=== PATIENT | female | born 1945 | race Two or more races ===

== ENCOUNTER 2020-05-15 19:01 | Inpatient (IN) | payer MEDICARE, MEDICAID ==
[~2020-05-15] VITALS: Ht 162.6 cm; Wt 87.1 kg
[2020-05-15] MEDS ORDERED: LANTUS SOL100 UNIT/1 SUBQ (19:05)
[2020-05-15] MEDS ORDERED: ELIQUIS5 MG GT (19:05)
[2020-05-15] MEDS ORDERED: LANSOPRAZOLE30 MG GT (19:05)
[2020-05-15] MEDS ORDERED: CARVEDILOL3.125 MG GT (19:05)
[2020-05-15] MEDS ORDERED: MODAFINIL100 MG GT (19:05)
--- NOTE | 2020-05-15 19:05 | NUR ---
ED Nurse Note: Pt brought in from SNF via [facility] with AFIB W/RVR AT 152HH. PT presents with a T tube trach on 5L, Spo2 10 Addendum: 05/15/20 at 2330 by KDEARING Spo2 100%. PT is non-verbal, not tracking with eyes, Gtube present, clamped. Pt is diaphoretic, rectal temp 98.8. Pt placed on laboratory monitor, blood sent to lab, ERMD at bedside
--- NOTE | 2020-05-15 19:07 | Emergency Room Report ---
History of Present Illness General Chief Complaint: General Complaint Source: Patient Present Illness HPI 74-year-old female with history of CVA, chronic A. fib on Eliquis carvedilol, here with atrial fibrillation with RVR. Patient was noted to have tachycardia of around 150 to 160 bpm today at the skilled nursing. She was also diaphoretic and mildly tachypneic. She has a trach in place but is not ventilator dependent. She had normal oxygen saturation on room air per the skilled nursing report. She has a G-tube in place as well. Patient is nonverbal at baseline but does respond to commands and move all extremities spontaneously. She is at her normal baseline mental status according to nursing paperwork. She is unable to participate in review of systems secondary to nonverbal baseline mental status Allergies: Coded Allergies: No Known Allergies (Unverified , 05/15/20) COVID-19 Screening Contact w/high risk pt: No Experienced COVID-19 symptoms?: No COVID-19 Testing performed SCALE TECHNICIAN: No Nursing Documentation-PMH Past Medical History: No History, Except For Hx Diabetes: Yes - TYPE 1 Physical Exam Vital Signs Date Time Temp Pulse Resp B/P (MAP) Pulse Ox O2 Delivery O2 Flow Rate FiO2 05/15/20 18:54 160 20 93/53 (66) 100 Nasal Cannula 2.0 Medical Decision Making Diagnostic Impression: Primary Impression: Sepsis Additional Impressions: HCAP (healthcare-associated pneumonia) Atrial fibrillation with RVR ER Course EKG: Rate 165 bpm. Left axis deviation. No ectopy. No ST or T wave abnormalities. Right bundle branch block Total critical care time: Approximately 60 minutes Due to a high probability of clinically significant, life threatening deterioration, the patient required the highest level of preparedness to intervene emergently and I personally spent this critical care time directly and personally managing the patient. This critical care time included obtaining a history, examining the patient, pulse oximetry, ordering and reviewing studies , ordering treatments, evaluating response to treatment and updating management plan as needed, frequent reassessment and discussion with other providers as well as arranging for ultimate disposition. This critical to care time was performed to assess and manage the high probability of life-threatening deterioration that could result in multiorgan failure. This critical care time is separate from the separately billable procedures and treating other patients. Ddx: Asthma, copd, pna, ptx, pe, chf, acs, anemia, endocrine, renal, covid, at risk for sepsis Ddx: URI, bronchitis, viral syndrome, flu, pneumonia, meningitis, uti, acute cholecystitis, appendicitis, diverticulitis, cellulitis, at risk for sepsis 74-year-old female, history of CVA, atrial fibrillation on Eliquis here with rapid heart rate. Patient was diaphoretic and tachypneic and tachycardic on arrival to the emergency department. She initially had a heart rate of around 165 bpm, confirmed atrial fibrillation with rapid ventricular response on EKG. Initial blood pressure was approximately 90/60 with a map of about 75. She was initially started on 30 cc/kg fluid bolus and given a Cardizem bolus and drip. She was maintained on the drip which was titrated upwards to 12.5mg/hr. heart rate slowly coming down to around 130 bpm at this time. Blood pressure increased to 114/78. Initial lactate 2.4, repeat lactate will be drawn after the 30 cc/kg fluid bolus is completed. Chest x-ray reveals many interstitial infiltrates diffusely in all lung yusuf. Juan test negative, but high suspicion this may be a false negative. Patient has leukocytosis of around 16, 000. Started on vancomycin and Zosyn antibiotic broad-spectrum coverage for HCAP. Patient to be admitted to ICU. Patient's heart rate remained high tachycardic in the 150s to 160s despite being maxed out on the Cardizem drip. Patient was re-bolused 15 mg of Cardizem and despite this patient remained highly tachycardic. For this reason the patient was also added on an esmolol drip. This will be started at the lowest rate of 50 mcg/kg gram per minute. Patient signed out to [facility] physician. Laboratory Tests Test 05/15/20 19:15 White Blood Count 16.4 K/UL (4.8-10.8) H Red Blood Count 3.64 M/UL (4.20-5.40) L Hemoglobin 9.1 G/DL (12.0-16.0) L Hematocrit 29.8 % (37.0-47.0) L Mean Corpuscular Volume 82 FL (80-99) Mean Corpuscular Hemoglobin 25.1 PG (27.0-31.0) L Mean Corpuscular Hemoglobin Concent 30.7 G/DL (32.0-36.0) L Red Cell Distribution Width 16.1 % (11.6-14.8) H Platelet Count 420 K/UL (150-450) Mean Platelet Volume 9.3 FL (6.5-10.1) Neutrophils (%) (Auto) 78.4 % (45.0-75.0) H Lymphocytes (%) (Auto) 11.6 % (20.0-45.0) L Monocytes (%) (Auto) 6.5 % (1.0-10.0) Eosinophils (%) (Auto) 2.7 % (0.0-3.0) Basophils (%) (Auto) 0.8 % (0.0-2.0) Prothrombin Time 12.4 SEC (9.30-11.50) H Prothrombin Time INR 1.1 (0.9-1.1) Activated Partial Thromboplast Time 30 SEC (23-33) D-Dimer 1.78 mg/L FEU (0.00-0.49) H Urine Color Yellow Urine Appearance Clear Urine pH 8.0 (4.5-8.0) Urine Specific [place] 1.005 (1.005-1.035) Urine Protein Negative (NEGATIVE) Urine Glucose (UA) Negative (NEGATIVE) Urine Ketones Negative (NEGATIVE) Urine Blood Negative (NEGATIVE) Urine Nitrite Negative (NEGATIVE) Urine Bilirubin Negative (NEGATIVE) Urine Urobilinogen Normal MG/DL (0.0-1.0) Urine Leukocyte Esterase Negative (NEGATIVE) Sodium Level 142 MMOL/L (136-145) Potassium Level 4.3 MMOL/L (3.5-5.1) Chloride Level 102 MMOL/L (98-107) Carbon Dioxide Level 30 MMOL/L (21-32) Anion Gap 11 mmol/L (5-15) Blood Urea Nitrogen 35 mg/dL (7-18) H Creatinine 0.8 MG/DL (0.55-1.30) Estimated Glomerular Filtration Rate > 60 mL/min (>60) Glucose Level 226 MG/DL (74-106) H Lactic Acid Level 2.20 mmol/L (0.4-2.0) H Calcium Level 8.9 MG/DL (8.5-10.1) Phosphorus Level 4.7 MG/DL (2.5-4.9) Magnesium Level 2.0 MG/DL (1.8-2.4) Ferritin 141 NG/ML (8-388) Total Bilirubin 0.2 MG/DL (0.2-1.0) Aspartate Amino Transferase (AST) 15 U/L (15-37) Alanine Aminotransferase (ALT) 16 U/L (12-78) Alkaline Phosphatase 134 U/L (46-116) H Lactate Dehydrogenase 291 U/L (81-234) H Total Creatine Kinase 43 U/L (26-308) Creatine Kinase MB 1.1 NG/ML (0.0-3.6) Creatine Kinase MB Relative Index 2.5 Troponin I 0.194 ng/mL (0.000-0.056) Total Protein 6.7 G/DL (6.4-8.2) Albumin 2.1 G/DL (3.4-5.0) L Globulin 4.6 g/dL Albumin/Globulin Ratio 0.5 (1.0-2.7) L Microbiology Date/Time Source Procedure Growth Status 05/15/20 19:15 Nasopharynx SARS-CoV-2 RdRp Gene Assay - Final Complete Chest X-Ray Diagnostic Results Chest X-Ray Diagnostic Results : PA Joseluisibe Text IMPRESSION: 1. Low lung volumes with bronchovascular crowding. 2. Patchy left lung airspace opacities could represent multifocal pneumonia or atypical pulmonary edema. 3. Tracheostomy. 4. Cardiomegaly. 5. If there is continued concern, recommend CT. Last Vital Signs Date Time Temp Pulse Resp B/P (MAP) Pulse Ox O2 Delivery O2 Flow Rate FiO2 05/15/20 18:54 160 20 93/53 (66) 100 Nasal Cannula 2.0 Johnny Qiu M.D. May 15, 2020 19:07
[2020-05-15] MEDS ORDERED: dilTIAZem Premix 125mg/125ml 125 ML IVPB ONE (19:15)
[2020-05-15] MEDS ORDERED: dilTIAZem HCl 25mg/5ml Inj IVP ONE ×4 (19:15→21:15)
--- NOTE | 2020-05-15 19:15 | NUR ---
ED Nurse Note: HR 150's, IV fluids infusing per order, Cardizem started as well.
[2020-05-15 19:39] LABS: BASOPHILS % (AUTO) 0.8 % (0.0-2.0); EOSINOPHILS % (AUTO) 2.7 % (0.0-3.0); HEMATOCRIT 29.8 % (37.0-47.0); HEMOGLOBIN 9.1 G/DL (12.0-16.0); LYMPHOCYTES % (AUTO) 11.6 % (20.0-45.0); MEAN CORPUSCULAR VOLUME 82 FL (80-99); MONOCYTES % (AUTO) 6.5 % (1.0-10.0); NEUTROPHILS % (AUTO) 78.4 % (45.0-75.0); PLATELET COUNT 420 K/UL (150-450); RED BLOOD COUNT 3.64 M/UL (4.20-5.40); RED CELL DISTRIBUTION WIDTH 16.1 % (11.6-14.8); WHITE BLOOD COUNT 16.4 K/UL (4.8-10.8)
[2020-05-15 19:47] LABS: ANION GAP 11 mmol/L (5-15); BLOOD UREA NITROGEN 35 mg/dL (7-18); CALCIUM 8.9 MG/DL (8.5-10.1); CARBON DIOXIDE 30 MMOL/L (21-32); CHLORIDE 102 MMOL/L (98-107); CREATININE 0.8 MG/DL (0.55-1.30); POTASSIUM 4.3 MMOL/L (3.5-5.1); SODIUM 142 MMOL/L (136-145)
[2020-05-15 19:52] LABS: INR 1.1 (0.9-1.1)
[2020-05-15] MEDS ORDERED: Vancomycin 1 GM in NS 275 ML IVPB ONE (20:00)
[2020-05-15] MEDS ORDERED: Piperacillin/Tazobactam 3.375 GM in NS 110 ML IVPB ONE (20:00)
--- NOTE | 2020-05-15 20:00 | Diagnostic Imaging Report ---
EXAM: XR Chest, 1 View CLINICAL HISTORY: SOB TECHNIQUE: Frontal view of the chest. COMPARISON: No relevant prior studies available. FINDINGS: Lungs: Low lung volumes with bronchovascular crowding. Patchy left lung airspace opacities could represent multifocal pneumonia or atypical pulmonary edema. Pleural space: Unremarkable. No pneumothorax. Heart: Cardiomegaly. Mediastinum: Unremarkable. Bones/joints: No acute abnormality Tubes, lines and devices: Tracheostomy. IMPRESSION: 1. Low lung volumes with bronchovascular crowding. 2. Patchy left lung airspace opacities could represent multifocal pneumonia or atypical pulmonary edema. 3. Tracheostomy. 4. Cardiomegaly. 5. If there is continued concern, recommend CT.
[2020-05-15 20:06] LABS: APPEARANCE,URINE CLEAR; BILIRUBIN, URINE NEGATIVE (NEGATIVE); COLOR,URINE YELLOW; GLUCOSE, URINE (UA) NEGATIVE (NEGATIVE); KETONES,URINE NEGATIVE (NEGATIVE); LEUKOCYTE ESTERASE ,URINE NEGATIVE (NEGATIVE); NITRITE,URINE NEGATIVE (NEGATIVE); PROTEIN,URINE NEGATIVE (NEGATIVE); UROBILINOGEN,URINE NORMAL MG/DL (0.0-1.0)
[2020-05-15 20:12] LABS: ALANINE AMINOTRANSFERASE 16 U/L (12-78); ALBUMIN 2.1 G/DL (3.4-5.0); ALBUMIN/GLOBULIN RATIO 0.5 (1.0-2.7); ALKALINE PHOSPHATASE 134 U/L (46-116); ASPARTATE AMINO TRANSFERASE 15 U/L (15-37); BILIRUBIN,TOTAL 0.2 MG/DL (0.2-1.0); CKMB 1.1 NG/ML (0.0-3.6); CREATINE KINASE 43 U/L (26-308); FERRITIN 141 NG/ML (8-388); PHOSPHORUS 4.7 MG/DL (2.5-4.9)
[2020-05-15 20:23] VITALS: BP 93/53
[2020-05-15 22:00] VITALS: BP 111/81
--- NOTE | 2020-05-15 22:00 | NUR ---
ED Nurse Note: Esmolol started per order, pt tolerating well. Will continue to monitor
[2020-05-15 22:30] VITALS: BP 108/78
[2020-05-15 23:00] VITALS: BP 107/81
[2020-05-15 23:30] VITALS: BP 97/62
[2020-05-16] VITALS (42 sets, daily range): BP systolic 91–155; BP diastolic 56–87
--- NOTE | 2020-05-16 | NUR ---
ED Nurse Note: Pt in bed, side rails up, IV fluids infusing per order, HR 118, ERMD aware. will continue to monitor
--- NOTE | 2020-05-16 03:05 | NUR ---
TRANSFER TO FLOOR: Patient transferred to as ordered, per DR Martinez. Report given to KARLENE Malagon . Belongings and medications given to . Family and or S/O informed of transfer.
--- NOTE | 2020-05-16 03:16 | NUR ---
NURSE NOTES: RECEIVED THE PATIENT FROM ER NURSE KARLENE OZUNA VIA HOSPITAL BED. PATIENT OPEN EYES, UNABLE TO EYE CONTACT, ON O2 5LPM VIA T- PIECE, TRACH SITE CLEANED AND DRIED, O2 SATURATION 100% NOTED, HR 120'S/MIN A-FIB WITH BBB, G-TUBE INTACT AND PATENT, CLAMP STATUS, NO N/V NOTED, F/C INTACT AND PATENT, SUSAN COLOR URINE OUTED, PPL TO BOTH FA, LEFT FA INTACT AND PATENT,RIGHT FA SIDE OCCLUDED, ONGOING ESMOLOL 50MCG/KG/MIN VIA LEFT SIDE PPL, PRESSURE WOUND TO SACRAL AND REDNESS SPREAD TO PERIANAL AREA AND INNER THIGH, MADE LOWER BED POSITION, ON BED LOCKED AND ALARM, WILL CONTINUE TO MONITOR.
--- NOTE | 2020-05-16 04:10 | NUR ---
NURSE NOTES: CALLED DR. BROOKS REGARDING ESMOLOL ORDER THAT RECEIVED NEW ORDER.
[2020-05-16] MEDS: Metoprolol Tartrate 50mg tab GT SCH ×3 (04:16→21:09)
[2020-05-16] MEDS ORDERED: dilTIAZem HCl 25mg/5ml Inj ONE (04:24)
[2020-05-16] MEDS ORDERED: dilTIAZem HCl 25mg/5ml Inj IVP SCH ×2 (04:30→14:00)
--- NOTE | 2020-05-16 04:30 | Consultation ---
DATE OF CONSULTATION: 05/15/2020 REQUESTING PHYSICIAN: Fernie Martinez MD REASON FOR CONSULTATION: Elevated troponin level and rapid atrial fibrillation. HISTORY OF PRESENT ILLNESS: This is a 74-year-old female who resides at a group home facility. She has chronic atrial fibrillation and is on anticoagulation. She has had a prior stroke with respiratory failure and a tracheostomy although is not ventilator dependent. She was sent to the emergency room for evaluation of rapid heart rate, diaphoresis, and tachypnea. In the emergency room, she was hypotensive, tachycardic, oxygenating adequately on 2 liters. She was given several boluses of diltiazem intravenously and esmolol drip. I have been asked to assist with further cardiovascular management. PAST MEDICAL HISTORY: Cerebrovascular accident, dementia, dysphagia, gastrostomy tube, atrial fibrillation, hypertension, and insulin-requiring diabetes mellitus. ALLERGIES: No allergies. MEDICATIONS: Reviewed and reconciled. FAMILY HISTORY: Not known. SOCIAL HISTORY: Not recorded. REVIEW OF SYSTEMS: Not obtainable. Chart review of half-way records x20 minutes is performed. PHYSICAL EXAMINATION: VITAL SIGNS: Reveal blood pressure 93/53, heart rate 160, and respiratory rate 20. No fever spikes. Trach site clean. RESPIRATORY: Bilateral breath sounds with a few rhonchi. CARDIAC: Irregularly irregular rhythm. Rapid rate. Normal S1, S2. No murmur appreciated, but respiratory sounds obscure exam. ABDOMEN: Soft. G-tube intact. EXTREMITIES: Contractures. No edema. EKG, atrial fibrillation, rapid ventricular response, nonspecific ST-T wave changes. Lactic acid #1 is 2.2, #2 is 2.1. Sodium 142, potassium 4.3, bicarb 30, BUN 35, creatinine 0.8, and glucose 226. Troponin 0.194. Albumin 2.1. White count 16.4, hemoglobin 9.1, and platelets 420,000. Urinalysis with no active sediment. Chest x-ray performed reveals cardiomegaly, patchy left infiltrate, and low lung volume. IMPRESSION: 1. Shock, sepsis. 2. Healthcare-acquired pneumonia, tracheostomy. 3. Atrial fibrillation with rapid ventricular response. 4. Mkg-FA-fbvaaslth myocardial infarction. 5. Cerebrovascular disease with prior cerebrovascular accident. 6. Dysphagia with G-tube. 7. Hypovolemia and dehydration. 8. Lactic acidosis. PLAN: 1. ICU care. Beta-blockade. Intravenous diltiazem for additional rate control if needed. Respiratory therapy. Broad-spectrum antibiotics. Follow up culture results. 2. Continue full anticoagulation. 3. Insulin coverage by sliding scale. 4. Cautious hydration. 5. Hope to avoid pressors. 6. Follow up lab studies including troponin levels. John Heard M.D. DR: SOY JOB#: [id number] CC:
[2020-05-16] MEDS: Piperacillin/Tazobactam 3.375 GM in NS 110 ML IVPB SCH ×3 (06:17→21:47)
[2020-05-16] MEDS: NovoLOG Insulin Flexpen SUBQ SCH ×4 (06:18→21:29)
--- NOTE | 2020-05-16 06:20 | NUR ---
NURSE NOTES: PATIENT ASLEEP STATUS, HR 110'S/MIN A-FIB WITH BBB, NO PAIN OR SOB NOTED AT THIS TIME.
[2020-05-16] MEDS ORDERED: NovoLOG Insulin Flexpen SUBQ SCH (06:30)
[2020-05-16 06:41] LABS: BASOPHILS % (AUTO) 0.8 % (0.0-2.0); EOSINOPHILS % (AUTO) 0.7 % (0.0-3.0); HEMOGLOBIN 9.3 G/DL (12.0-16.0); LYMPHOCYTES % (AUTO) 9.8 % (20.0-45.0); MEAN CORPUSCULAR VOLUME 81 FL (80-99); MONOCYTES % (AUTO) 4.2 % (1.0-10.0); NEUTROPHILS % (AUTO) 84.4 % (45.0-75.0); PLATELET COUNT 363 K/UL (150-450); RED BLOOD COUNT 3.68 M/UL (4.20-5.40); RED CELL DISTRIBUTION WIDTH 16.1 % (11.6-14.8)
--- NOTE | 2020-05-16 07:15 | NUR ---
HAND-OFF: Report given to KARLENE SORIA.
[2020-05-16 07:29] LABS: ALANINE AMINOTRANSFERASE 23 U/L (12-78); ALBUMIN 2.3 G/DL (3.4-5.0); ALBUMIN/GLOBULIN RATIO 0.5 (1.0-2.7); ALKALINE PHOSPHATASE 107 U/L (46-116); ANION GAP 10 mmol/L (5-15); ASPARTATE AMINO TRANSFERASE 17 U/L (15-37); BILIRUBIN,TOTAL 0.4 MG/DL (0.2-1.0); BLOOD UREA NITROGEN 36 mg/dL (7-18); CARBON DIOXIDE 28 MMOL/L (21-32); CHLORIDE 106 MMOL/L (98-107); CREATININE 0.8 MG/DL (0.55-1.30); POTASSIUM 4.3 MMOL/L (3.5-5.1); SODIUM 144 MMOL/L (136-145)
--- NOTE | 2020-05-16 07:57 | NUR ---
NURSE NOTES: Report received from KARLENE Jasso.Patient is a new admit from [facility], admitting diagnosis Afib/RVR.Remains Afib on the monitor at 144. Patient afebrile,trach with TP at 5L and saturate at 100%.Patient non verbal , mouth care done and suctioned as tolerated.Turned and repositioned,HOB elevated to prevent aspiration.LFA 18 gauge running NS at 100cc/hr with no apparent infiltrate.Seen by Dr Solano, will follow up with new orders.Will continue close monitoring.Call light within easy reach.
--- NOTE | 2020-05-16 08:21 | History & Physical ---
History and Physical History & Physicial HISTORY OF PRESENT ILLNESS: 74-year-old female who resides at a [facility] facility. Patient with chronic atrial fibrillation and is on anticoagulation. Patient was sent to the emergency room for evaluation of rapid heart rate, diaphoresis, and tachypnea. In the emergency room, she was hypotensive, tachycardic, oxygenating adequately on 2 liters. Patient was started on diltiazem intravenously and transferred to the ICU. remains ill PAST MEDICAL HISTORY: Cerebrovascular accident, dementia, dysphagia, gastrostomy tube, atrial fibrillation, hypertension, and insulin-requiring diabetes mellitus. ALLERGIES: No allergies. MEDICATIONS: Reviewed and reconciled. FAMILY HISTORY: Not known. SOCIAL HISTORY: Not recorded. REVIEW OF SYSTEMS: unable. PHYSICAL EXAMINATION: NAD RESPIRATORY: moderate breath sounds CARDIAC: Irregularly irregular rhythm. Rapid rate. Normal S1, S2. no MRG ABDOMEN: Soft. G-tube intact. EXTREMITIES: Contractures. No edema. EKG, atrial fibrillation, rapid ventricular response, Labs Test 05/15/20 19:15 05/15/20 22:22 05/16/20 05:03 White Blood Count 16.4 K/UL (4.8-10.8) 17.0 K/UL (4.8-10.8) Red Blood Count 3.64 M/UL (4.20-5.40) 3.68 M/UL (4.20-5.40) Hemoglobin 9.1 G/DL (12.0-16.0) 9.3 G/DL (12.0-16.0) Hematocrit 29.8 % (37.0-47.0) 30.0 % (37.0-47.0) Mean Corpuscular Volume 82 FL (80-99) 81 FL (80-99) Mean Corpuscular Hemoglobin 25.1 PG (27.0-31.0) 25.2 PG (27.0-31.0) Mean Corpuscular Hemoglobin Concent 30.7 G/DL (32.0-36.0) 31.0 G/DL (32.0-36.0) Red Cell Distribution Width 16.1 % (11.6-14.8) 16.1 % (11.6-14.8) Platelet Count 420 K/UL (150-450) 363 K/UL (150-450) Mean Platelet Volume 9.3 FL (6.5-10.1) 8.4 FL (6.5-10.1) Neutrophils (%) (Auto) 78.4 % (45.0-75.0) 84.4 % (45.0-75.0) Lymphocytes (%) (Auto) 11.6 % (20.0-45.0) 9.8 % (20.0-45.0) Monocytes (%) (Auto) 6.5 % (1.0-10.0) 4.2 % (1.0-10.0) Eosinophils (%) (Auto) 2.7 % (0.0-3.0) 0.7 % (0.0-3.0) Basophils (%) (Auto) 0.8 % (0.0-2.0) 0.8 % (0.0-2.0) Prothrombin Time 12.4 SEC (9.30-11.50) Prothromb Time International Ratio 1.1 (0.9-1.1) Activated Partial Thromboplast Time 30 SEC (23-33) D-Dimer 1.78 mg/L FEU (0.00-0.49) Urine Color Yellow Urine Appearance Clear Urine pH 8.0 (4.5-8.0) Urine Specific [place] 1.005 (1.005-1.035) Urine Protein Negative (NEGATIVE) Urine Glucose (UA) Negative (NEGATIVE) Urine Ketones Negative (NEGATIVE) Urine Blood Negative (NEGATIVE) Urine Nitrite Negative (NEGATIVE) Urine Bilirubin Negative (NEGATIVE) Urine Urobilinogen Normal MG/DL (0.0-1.0) Urine Leukocyte Esterase Negative (NEGATIVE) Sodium Level 142 MMOL/L (136-145) 144 MMOL/L (136-145) Potassium Level 4.3 MMOL/L (3.5-5.1) 4.3 MMOL/L (3.5-5.1) Chloride Level 102 MMOL/L (98-107) 106 MMOL/L (98-107) Carbon Dioxide Level 30 MMOL/L (21-32) 28 MMOL/L (21-32) Anion Gap 11 mmol/L (5-15) 10 mmol/L (5-15) Blood Urea Nitrogen 35 mg/dL (7-18) 36 mg/dL (7-18) Creatinine 0.8 MG/DL (0.55-1.30) 0.8 MG/DL (0.55-1.30) Estimat Glomerular Filtration Rate > 60 mL/min (>60) > 60 mL/min (>60) Glucose Level 226 MG/DL (74-106) 167 MG/DL (74-106) Lactic Acid Level 2.20 mmol/L (0.4-2.0) 2.10 mmol/L (0.66-2.22) Calcium Level 8.9 MG/DL (8.5-10.1) 9.0 MG/DL (8.5-10.1) Phosphorus Level 4.7 MG/DL (2.5-4.9) Magnesium Level 2.0 MG/DL (1.8-2.4) Ferritin 141 NG/ML (8-388) Total Bilirubin 0.2 MG/DL (0.2-1.0) 0.4 MG/DL (0.2-1.0) Aspartate Amino Transf (AST/SGOT) 15 U/L (15-37) 17 U/L (15-37) Alanine Aminotransferase (ALT/SGPT) 16 U/L (12-78) 23 U/L (12-78) Alkaline Phosphatase 134 U/L (46-116) 107 U/L (46-116) Lactate Dehydrogenase 291 U/L (81-234) Total Creatine Kinase 43 U/L (26-308) Creatine Kinase MB 1.1 NG/ML (0.0-3.6) Creatine Kinase MB Relative Index 2.5 Troponin I 0.194 ng/mL (0.000-0.056) 0.159 ng/mL (0.000-0.056) Total Protein 6.7 G/DL (6.4-8.2) 7.3 G/DL (6.4-8.2) Albumin 2.1 G/DL (3.4-5.0) 2.3 G/DL (3.4-5.0) Globulin 4.6 g/dL 5.0 g/dL Albumin/Globulin Ratio 0.5 (1.0-2.7) 0.5 (1.0-2.7) Pro-B-Type Natriuretic Peptide 17752 pg/mL (0-125) Thyroid Stimulating Hormone (TSH) 1.382 uiU/mL (0.358-3.740) IMPRESSION: 1. Shock, with possible sepsis. 2. Healthcare-acquired pneumonia, tracheostomy. 3. Atrial fibrillation with RVR 4. NSTEMI 5. Cerebrovascular disease 6. Dysphagia with G-tube. 7. Hypovolemia and dehydration. 8. Lactic acidosis. 9. leukocytosis 10. severe protein calorie malnutrition PLAN diltiazem iv antibiotics feeds vent monitor labs continue same impression, plan, and exam edited and reviewed in detail care discussed with Fernie Ledezma MD May 16, 2020 08:21
--- NOTE | 2020-05-16 09:11 | NUR ---
RD ASSESSMENT & RECOMMENDATIONS SEE CARE ACTIVITY FOR COMPLETE ASSESSMENT DAILY ESTIMATED NEEDS: Needs based on Wound, DM/ 57kg abw 25-30 kcals/kg 3433-6687 total kcals 1.25-1.8 g protein/kg 71-103 g total protein 25-30 mL/kg 1623-6389 total fluid mLs NUTRITION DIAGNOSIS: * Increased kcal/prot needs R/T wound healing as evidenced by pt admitted w/ advanced sacral wound, pending evaluation. CURRENT TF:Glucerna 1.2 @ 50ml/hr x 24 hrs ENTERAL NUTRITION RECOMMENDATIONS: Glucerna 1.2 @ 50ml/hr x 24 hrs + Prosource 1pkt daily to provide 1200ml, 1440kcal, 72g +11g prot, 966ml free water * Add Prosource 1pkt daily to current TF order to better meet increased protein needs (additional 11g protein) * HOB over 30 degrees/ water flush per MD ADDITIONAL RECOMMENDATIONS: * Per SNF: Ht=63" YX=320nmq (Apr 2020) -> calibrated bedscale wt * Wound healing: f/up w/ WC eval TF @ goal will provide 100% RDI Add Vit C 500mg QD + ZnSO4 220mg QD x 10 days + Endy BID via PEG * Monitor lytes, replete as needed * Monitor BGs, need for long acting insulin
[2020-05-16] MEDS: Eliquis 5mg tablet GT SCH ×2 (09:14→17:06)
[2020-05-16] MEDS ORDERED: Tubing IV Secondary IV ONE (10:03)
--- NOTE | 2020-05-16 10:10 | NUR ---
NURSE NOTES: PATIENT WAS SEEN BY Dr ZELAYA, WILL FOLLOW UP WITH NEW ORDERS. PATIENT TURNED AND REPOSITIONED.HOB ELEVATED TO PREVENT ASPIRATION.WILL CONTINUE TO MONITOR
--- NOTE | 2020-05-16 12:04 | NUR ---
NURSE NOTES: Patient turned and repositioned.Still uncontrol Afib at 157, will follow up with Dr Heard. Mouth care done and patient suctioned as tolerated.HOB elevated to prevent aspiration.Tolerate well feeding. No residual noted at this time.Will continue close monitoring
--- NOTE | 2020-05-16 12:25 | NUR ---
NURSE NOTES: Patient seen by Dr Heard and made aware of uncontrol AFIB with new order to start patient on Cardizem drip.Order noted and carried out
--- NOTE | 2020-05-16 13:53 | NUR ---
Social Work Chart reviewed; this SW contacted son, John Booker ([phone]), who is the primary decision maker. Patient is a half-way resident from [facility], history of stroke, has had peg, trach for the past month. Son explained patient did not complete an Advance Directive, but stating he had several conversations with patient and wanting full treatment, full code. Son explained awareness on how to contact ICU nursing for any updates, as needed. Brief support provided to so by this SW. No other needs or concerns presented a this time. SW to follow further, as needed.
--- NOTE | 2020-05-16 14:00 | Consultation ---
DATE OF CONSULTATION: 05/16/2020 INFECTIOUS DISEASES CONSULTATION CONSULTING PHYSICIAN: Mina Salamanca MD. REFERRING PHYSICIAN: Fernie Martinez MD. REASON FOR CONSULTATION: Pneumonia. HISTORY OF PRESENTING ILLNESS: This is a 74-year-old lady with history of atrial fibrillation, CVA, dementia, hypertension, diabetes, who comes in because she had tachypnea, tachycardia, and diaphoresis. She was also found to be hypotensive and admitted to the ICU. An Infectious Diseases consultation has been obtained for antibiotics. PAST MEDICAL HISTORY: 1. History of diabetes. 2. Hypertension. 3. Atrial fibrillation. 4. CVA. 5. Dementia. 6. Respiratory failure, status post tracheostomy, currently on a G-tube. SOCIAL HISTORY: Unknown. FAMILY HISTORY: Unknown. REVIEW OF SYSTEMS: Unable to obtain currently. MEDICATIONS: As an inpatient, she is on IV vancomycin, Eliquis, insulin, Zosyn, metoprolol. ALLERGIES: No known drug allergies. PHYSICAL EXAMINATION: VITAL SIGNS: Temperature of 98, T-max of 98.8, pulse of 132, respiratory rate 27, blood pressure 108/68, O2 saturation of 100%. HEENT: Pupils equally reactive to light and accommodation. Mouth appears clean without thrush. NECK: Supple. No adenopathy. No JVD. CARDIOVASCULAR: Regular rate and rhythm. No murmurs. LUNGS: Clear to auscultation bilaterally. No crackles. No wheezes. ABDOMEN: Soft, nontender. G-tube site appears clean. EXTREMITIES: No cyanosis, no clubbing, no edema. LABORATORY AND DIAGNOSTIC DATA: White count of 17, hemoglobin 9.3, hematocrit 30, MCV 81, platelet count of 363, with neutrophils of 84%. Sodium 144, potassium 4.3, chloride 106, bicarb 28, BUN 36, creatinine 0.8, glucose 167, calcium of 9. Total bilirubin 0.4. AST 17, ALT 23, alkaline phosphatase 107. Troponin 0.159. Beta-natriuretic peptide 11,023. Total protein 7.3. Albumin 2.3. UA is negative. COVID-19 rapid test is negative. Chest x-ray is showing multifocal pneumonia, atypical pulmonary edema. ASSESSMENT: This is a 74-year-old lady with history of atrial fibrillation, diabetes, hypertension, respiratory failure, status post tracheostomy, who comes in with tachycardia, hypoxia and was found to have: 1. Possible aspiration pneumonia. COVID-19 test is negative. 2. Respiratory failure. 3. Dementia. 4. Hypertension. 5. Diabetes. 6. Leukocytosis. PLAN: 1. Continue IV vancomycin and Zosyn. 2. We will order sputum for Gram stain and culture. 3. We will follow up cultures and adjust antibiotics accordingly. I would like to thank, Dr. Martinez for this consultation. Mina Salamanca M.D. DR: PIERRE JOB#: [id number] CC: Fernie Martinez MD.; Fax#: [phone]
--- NOTE | 2020-05-16 14:02 | NUR ---
NURSE NOTES: Patient asleep, Cardizem drip started and HR remains irregular and Afib on the monitor. Will continue to monitor
[2020-05-16] MEDS: dilTIAZem Premix 125mg/125ml 125 ML IVPB SCH ×2 (14:05→19:02)
--- NOTE | 2020-05-16 16:15 | NUR ---
NURSE NOTES: Patient seen by wound care nurse and wounds assessment and treatment done.Turned and repositioned for skin management.Tolerate well feeding.HOB elevated to prevent aspiration, will continue monitoring.Dr Little made aware of consult.Call light within easy reach.No significant change in condition at this time.
--- NOTE | 2020-05-16 17:35 | NUR ---
NURSE NOTES:WOUND CARE NOTES:Pt presented on admission with multiple pressure injuries,IAD. An Unstageable Sacral Pressure Injury (L0
--- NOTE | 2020-05-16 17:39 | NUR ---
NURSE NOTES:WOUND CARE NOTES:Pt presented on admission with generalized Edema,multiple Pressure Injuries and IAD. Unstageable Sacral Pressure Injury(L)11.4cm x (W)7.2cm. Base of wound is 80% dry necrosis ,20% beefy red and moist,Edges are macerated.. Along immediate borders of wound is id dark and fluctuant with surrounding non-blanching erythema. No odor or exudate noted. DTPI noted to R Ischium. Base of wound is maroon and fluctuant (L)4cm x (W)2.2cm. Incontinence Associated Dermatitis noted. Mons Pubis ,Perineum and clefts of buttocks are erythematous with scattered satellite lesions. Both heels are soft but blanchable. Both feet cool to touch toes on each feet are dusky . Scattered melasmas noted to upper and mid back. Skin assessed under tracheal collar and no evidence of skin breakdown noted. Tx.Plan: Cleanse Sacral wound with Saline. Apply Therahoney. Apply MOisture Barrier Periwound. Cover with Optifoam drsg Daily and prn. Apply Cavilon Skin Barrier to R ischium. Cover with Optifoam Drsg. Change every 3Days and PRN. Apply Moisture Barrier Paste to Perineal area , mid thighs and buttocks with each incontinence Care. Apply Cavilon Skin Barrier to Both heels and Malleoli. Cover each site with Optifoam drsgs. Change every 7 days PRN. Reposition at least every 2hours or as tolerated. Off-load Heels with PIllow. APM/DANIEL Mattress overlay.
--- NOTE | 2020-05-16 17:58 | NUR ---
CASE MANAGEMENT: REVIEW 74 YEAR OLD FEMALE BIBA FROM [facility] CC: TACHYCARDIA SI: A-FIB w/RVR T 98.8 HR 160 RR 20 BP 93/53 SAT 100% NC/2L WBC 16.4 H/H 9.1/29.8 LACTIC ACID TROP I 0.159 EKG IS: CARDIZEM IV X1 NS IVF BOLUS X1 ZOSYN IV X1 ESMOLOL IV X1 PATIENT ADMITTED TO ICU 05/15/2020 DCP: PATIENT IS FROM [facility]
--- NOTE | 2020-05-16 18:10 | NUR ---
INSURANCE CLINICALS/REVIEW FAXED TO [facility] @ FULL RISK #[phone] FAX#[phone]
--- NOTE | 2020-05-16 18:11 | NUR ---
NURSE NOTES: ADLs done,turned and repositioned.Mouth care performed and suctioned as tolerated.Cardizem drip at 15mg/hr, HR remains irregular and patient still Afib.Will continue to monitor
[2020-05-16] MEDS ORDERED: INSULIN LI100 UNIT/1 SQ (19:26)
[2020-05-16] MEDS ORDERED: ACETAMINOP160 MG/5 M GT (19:26)
--- NOTE | 2020-05-16 19:30 | NUR ---
NURSE NOTES: Received pt awake open eyes, left arm moves, the rest of extremities weak on, on 50% t piece, , Afib with RVR on the monitor, bp labile, on cardizem drip at 15mg/hr and NS at 100ml/hr. will continue to monitor.
--- NOTE | 2020-05-16 19:44 | NUR ---
HAND-OFF: Report given to KARLENE Del Rio.
[2020-05-16] MEDS: Vancomycin 1gm/D5W 275ml IVPB SCH ×2 (20:24)
--- NOTE | 2020-05-16 22:00 | NUR ---
NURSE NOTES: Pt with pressure sore sacral areas pls see pictures, all are covered with optifoam clean and dry.
--- NOTE | 2020-05-16 22:00 | NUR ---
NURSE NOTES: place pt on p200 mattress.
[2020-05-17] VITALS (43 sets, daily range): BP systolic 92–141; BP diastolic 60–97
--- NOTE | 2020-05-17 01:00 | NUR ---
NURSE NOTES: Fio2 changed to 21% T piece
--- NOTE | 2020-05-17 02:40 | Cardiology Progress Note ---
Subjective DATE OF SERVICE: May 16, 2020 Remains in rapid atrial fibrillation BP marginal, but off pressors On-going trach care Objective Last 24 Hour Vital Signs Date Time Temp Pulse Resp B/P (MAP) Pulse Ox O2 Delivery O2 Flow Rate FiO2 05/17/20 01:51 100 Cool Aerosol 5.0 28 05/17/20 00:00 98.8 114 27 92/60 (71) 95 05/16/20 23:30 110 24 105/72 (83) 100 05/16/20 23:00 112 24 107/69 (82) 100 05/16/20 22:30 111 24 103/56 (72) 100 05/16/20 22:00 118 23 105/70 (82) 100 05/16/20 21:30 126 25 114/75 (88) 100 05/16/20 21:09 147 113/64 05/16/20 21:00 149 26 93/64 (74) 98 05/16/20 20:45 139 26 95/72 (80) 99 05/16/20 20:30 151 26 96/68 (77) 99 05/16/20 20:15 142 26 97/61 (73) 98 05/16/20 20:00 99.0 158 26 91/66 (74) 96 05/16/20 20:00 T-piece 5.0 05/16/20 19:45 157 33 120/72 (88) 98 05/16/20 19:44 100 Cool Aerosol 8.0 35 05/16/20 19:30 156 34 121/79 (93) 98 05/16/20 18:00 146 29 130/87 (101) 100 05/16/20 17:00 137 25 108/74 (85) 100 05/16/20 16:00 T-piece 5.0 05/16/20 16:00 128 05/16/20 16:00 98.2 130 25 97/71 (80) 96 05/16/20 15:00 131 24 100/80 (87) 100 05/16/20 14:04 159 91/67 05/16/20 14:00 155 27 91/67 (75) 100 05/16/20 13:51 100 Cool Aerosol 8.0 35 05/16/20 13:00 151 24 110/75 (87) 100 05/16/20 12:00 99.0 152 26 105/65 (78) 99 05/16/20 12:00 153 05/16/20 12:00 T-piece 5.0 05/16/20 11:00 132 27 108/68 (81) 100 05/16/20 10:00 141 26 103/66 (78) 97 05/16/20 09:48 98 Cool Aerosol 8.0 35 05/16/20 09:13 144 117/74 05/16/20 09:00 142 25 117/74 (88) 100 05/16/20 08:00 135 05/16/20 08:00 T-piece 5.0 05/16/20 08:00 98.0 135 24 122/81 (95) 100 05/16/20 07:00 130 22 113/75 (88) 100 05/16/20 06:45 125 22 102/73 (83) 100 05/16/20 06:30 130 23 102/68 (79) 100 05/16/20 06:15 130 23 113/71 (85) 100 05/16/20 06:00 126 22 115/69 (84) 100 05/16/20 05:30 134 23 113/72 (86) 100 05/16/20 05:00 127 24 122/79 (93) 100 05/16/20 04:45 126 23 111/70 (84) 100 05/16/20 04:35 122 109/75 05/16/20 04:30 129 23 109/75 (86) 100 05/16/20 04:16 123 108/75 05/16/20 04:15 129 24 109/69 (82) 100 05/16/20 04:00 T-piece 5.0 05/16/20 04:00 127 24 108/75 (86) 100 05/16/20 04:00 127 05/16/20 03:45 126 25 118/83 (95) 100 05/16/20 03:32 125 05/16/20 03:30 98.7 125 26 113/65 (81) 100 05/16/20 03:30 5.0 05/16/20 03:30 T-Piece 5.0 05/16/20 03:15 121 23 100 05/16/20 03:14 155/71 (99) 05/16/20 03:05 98.8 118 30 110/72 100 Nasal Cannula 5.0 ROS: unchanged from my eval 05/15/20 HEENT: Thin Trach secretions RHYTHM: Afib LUNGS: bilateral rhonchi CARDIAC: normal S1 and S2, irregularly irregular, rapid rate ABDOMEN: normal bowel sounds, non tender, G-Tube intact EXTREMITIES: No edema Laboratory Tests Test 05/16/20 05:03 05/16/20 21:24 White Blood Count 17.0 K/UL (4.8-10.8) H Red Blood Count 3.68 M/UL (4.20-5.40) L Hemoglobin 9.3 G/DL (12.0-16.0) L Hematocrit 30.0 % (37.0-47.0) L Mean Corpuscular Volume 81 FL (80-99) Mean Corpuscular Hemoglobin 25.2 PG (27.0-31.0) L Mean Corpuscular Hemoglobin Concent 31.0 G/DL (32.0-36.0) L Red Cell Distribution Width 16.1 % (11.6-14.8) H Platelet Count 363 K/UL (150-450) Mean Platelet Volume 8.4 FL (6.5-10.1) Neutrophils (%) (Auto) 84.4 % (45.0-75.0) H Lymphocytes (%) (Auto) 9.8 % (20.0-45.0) L Monocytes (%) (Auto) 4.2 % (1.0-10.0) Eosinophils (%) (Auto) 0.7 % (0.0-3.0) Basophils (%) (Auto) 0.8 % (0.0-2.0) Sodium Level 144 MMOL/L (136-145) Potassium Level 4.3 MMOL/L (3.5-5.1) Chloride Level 106 MMOL/L (98-107) Carbon Dioxide Level 28 MMOL/L (21-32) Anion Gap 10 mmol/L (5-15) Blood Urea Nitrogen 36 mg/dL (7-18) H Creatinine 0.8 MG/DL (0.55-1.30) Estimat Glomerular Filtration Rate > 60 mL/min (>60) Glucose Level 167 MG/DL (74-106) H Calcium Level 9.0 MG/DL (8.5-10.1) Total Bilirubin 0.4 MG/DL (0.2-1.0) Aspartate Amino Transf (AST/SGOT) 17 U/L (15-37) Alanine Aminotransferase (ALT/SGPT) 23 U/L (12-78) Alkaline Phosphatase 107 U/L (46-116) Troponin I 0.159 ng/mL (0.000-0.056) Pro-B-Type Natriuretic Peptide 47978 pg/mL (0-125) H Total Protein 7.3 G/DL (6.4-8.2) Albumin 2.3 G/DL (3.4-5.0) L Globulin 5.0 g/dL Albumin/Globulin Ratio 0.5 (1.0-2.7) L Thyroid Stimulating Hormone (TSH) 1.382 uiU/mL (0.358-3.740) POC Whole Blood Glucose 226 MG/DL (74-106) H Microbiology Date/Time Source Procedure Growth Status 05/15/20 19:15 Nasopharynx SARS-CoV-2 RdRp Gene Assay - Final Complete Assessment/Plan Assessment/Plan Remains CRITICAL & GUARDED Sepsis with shock Healthcare associated PNA NSTE myocardial infarction Chronic AFib with RVR Lactic acidosis resolved Hypovolemia/dehydration Severe protein calorie malnutrition Resp rx IVF IV diltiazem Continue beta pietro Full anti-coagulation John Heard MD May 17, 2020 02:40
--- NOTE | 2020-05-17 03:00 | NUR ---
NURSE NOTES: Had x 1lg formed bowel movement, cleaned up pt
[2020-05-17] MEDS: dilTIAZem Premix 125mg/125ml 125 ML IVPB SCH ×4 (03:36→20:33)
--- NOTE | 2020-05-17 05:30 | NUR ---
NURSE NOTES: Complete bed bath with bed changed was done.
[2020-05-17] MEDS: Piperacillin/Tazobactam 3.375 GM in NS 110 ML IVPB SCH ×3 (05:39→21:54)
[2020-05-17 06:15] LABS: BASOPHILS % (AUTO) 0.7 % (0.0-2.0); EOSINOPHILS % (AUTO) 2.1 % (0.0-3.0); HEMATOCRIT 26.8 % (37.0-47.0); HEMOGLOBIN 8.2 G/DL (12.0-16.0); LYMPHOCYTES % (AUTO) 10.2 % (20.0-45.0); MEAN CORPUSCULAR VOLUME 81 FL (80-99); MONOCYTES % (AUTO) 6.9 % (1.0-10.0); NEUTROPHILS % (AUTO) 80.2 % (45.0-75.0); PLATELET COUNT 422 K/UL (150-450); RED BLOOD COUNT 3.31 M/UL (4.20-5.40); RED CELL DISTRIBUTION WIDTH 15.9 % (11.6-14.8); WHITE BLOOD COUNT 17.7 K/UL (4.8-10.8)
[2020-05-17 06:41] LABS: ALANINE AMINOTRANSFERASE 17 U/L (12-78); ALBUMIN 1.9 G/DL (3.4-5.0); ALBUMIN/GLOBULIN RATIO 0.5 (1.0-2.7); ALKALINE PHOSPHATASE 130 U/L (46-116); ANION GAP 11 mmol/L (5-15); BILIRUBIN,TOTAL 0.3 MG/DL (0.2-1.0); BLOOD UREA NITROGEN 33 mg/dL (7-18); CARBON DIOXIDE 25 MMOL/L (21-32); CHLORIDE 108 MMOL/L (98-107); CREATININE 0.8 MG/DL (0.55-1.30); POTASSIUM 3.8 MMOL/L (3.5-5.1); SODIUM 144 MMOL/L (136-145)
[2020-05-17] MEDS: NovoLOG Insulin Flexpen SUBQ SCH ×4 (06:46→20:53)
--- NOTE | 2020-05-17 07:34 | NUR ---
NURSE HAND-OFF REPORT: Latest Vital Signs: Temperature 99.0 , Pulse 133 , B/P 108 /75 , Respiratory Rate 24 , O2 SAT 100 , T-piece, O2 Flow Rate 5.0 . Vital Sign Comment: EKG Rhythm: Afib with RVR Rhythm change?: N MD Notified?: N - MD Response: Latest Hernandez Fall Score: 40 Fall Risk: Medium Risk Safety Measures: Call light Within Reach, Bed Alarm Zone 2, Side Rails Side Rails x3, Bed position Low and Locked. Fall Precautions: Report given to .
[2020-05-17 07:39] LABS: ASPARTATE AMINO TRANSFERASE 14 U/L (15-37)
--- NOTE | 2020-05-17 07:58 | General Progress Note ---
Assessment/Plan Problem List: (1) HCAP (healthcare-associated pneumonia) ICD Codes: J18.9 - Pneumonia, unspecified organism SNOMED: 854945636, 444026457 (2) Encounter for generalized patient complaints ICD Codes: Z00.8 - Encounter for other general examination SNOMED: 054305649 (3) Sepsis ICD Codes: A41.9 - Sepsis, unspecified organism SNOMED: 51018180, 114547764 (4) Atrial fibrillation with RVR ICD Codes: I48.91 - Unspecified atrial fibrillation SNOMED: 733388767964570 Status: stable, not improved Assessment/Plan: cardizem drip- titrate oral metoprolol consider dig eliquis for stroke prophylaxis monitor for bleeding tube feeds resp care consider anxiolytics- per staff pt ok right now stress ulcer prophylaxis monitor labs lytes cards and pulm noted Subjective ROS Limited/Unobtainable: Yes Constitutional: Reports: malaise, weakness HEENT: Reports: no symptoms Cardiovascular: Reports: irregular heart rate Respiratory: Reports: shortness of breath, SOB at rest Gastrointestinal/Abdominal: Reports: difficulty swallowing Genitourinary: Reports: no symptoms Neurologic/Psychiatric: Reports: anxiety, pre-existing deficit Endocrine: Reports: no symptoms Hematologic/Lymphatic: Reports: anemia Allergies: Coded Allergies: No Known Allergies (Unverified , 05/15/20) All Systems: reviewed and negative except above Subjective no events. remains afib uncontrolled. hr 130s. on cardizem drip as well as po metorpolol. +anxiety. BP on the low side. no fevers. on iv abx. Objective Last 24 Hour Vital Signs Date Time Temp Pulse Resp B/P (MAP) Pulse Ox O2 Delivery O2 Flow Rate FiO2 05/17/20 06:30 133 24 108/75 (86) 100 05/17/20 06:00 133 24 99/76 (84) 99 05/17/20 05:30 133 22 120/70 (87) 100 05/17/20 05:00 134 27 106/77 (87) 99 05/17/20 04:30 130 25 106/87 (93) 99 05/17/20 04:00 99.0 135 27 114/81 (92) 100 05/17/20 04:00 130 05/17/20 04:00 T-piece 5.0 05/17/20 03:30 134 25 114/77 (89) 99 05/17/20 03:00 128 25 104/71 (82) 100 05/17/20 02:30 129 25 101/72 (82) 99 05/17/20 02:00 125 26 115/79 (91) 99 05/17/20 01:51 100 Cool Aerosol 5.0 28 05/17/20 01:30 131 25 114/68 (83) 100 05/17/20 01:00 122 24 114/70 (85) 100 05/17/20 00:30 114 24 107/81 (90) 100 05/17/20 00:00 110 05/17/20 00:00 98.8 114 27 92/60 (71) 95 05/17/20 00:00 T-piece 5.0 05/16/20 23:30 110 24 105/72 (83) 100 05/16/20 23:00 112 24 107/69 (82) 100 05/16/20 22:30 111 24 103/56 (72) 100 05/16/20 22:00 118 23 105/70 (82) 100 05/16/20 21:30 126 25 114/75 (88) 100 05/16/20 21:09 147 113/64 05/16/20 21:00 149 26 93/64 (74) 98 05/16/20 20:45 139 26 95/72 (80) 99 05/16/20 20:30 151 26 96/68 (77) 99 05/16/20 20:15 142 26 97/61 (73) 98 05/16/20 20:00 99.0 158 26 91/66 (74) 96 05/16/20 20:00 T-piece 5.0 05/16/20 19:45 157 33 120/72 (88) 98 05/16/20 19:44 100 Cool Aerosol 8.0 35 05/16/20 19:30 156 34 121/79 (93) 98 05/16/20 18:00 146 29 130/87 (101) 100 05/16/20 17:00 137 25 108/74 (85) 100 05/16/20 16:00 T-piece 5.0 05/16/20 16:00 128 05/16/20 16:00 98.2 130 25 97/71 (80) 96 05/16/20 15:00 131 24 100/80 (87) 100 05/16/20 14:04 159 91/67 05/16/20 14:00 155 27 91/67 (75) 100 05/16/20 13:51 100 Cool Aerosol 8.0 35 05/16/20 13:00 151 24 110/75 (87) 100 05/16/20 12:00 99.0 152 26 105/65 (78) 99 05/16/20 12:00 153 05/16/20 12:00 T-piece 5.0 05/16/20 11:00 132 27 108/68 (81) 100 05/16/20 10:00 141 26 103/66 (78) 97 05/16/20 09:48 98 Cool Aerosol 8.0 35 05/16/20 09:13 144 117/74 05/16/20 09:00 142 25 117/74 (88) 100 05/16/20 08:00 135 05/16/20 08:00 T-piece 5.0 05/16/20 08:00 98.0 135 24 122/81 (95) 100 Intake and Output 05/16/20 05/17/20 19:00 07:00 Intake Total 1755.1666 ml 1995 ml Output Total 520 ml 630 ml Balance 1235.1666 ml 1365 ml Intake Free Water 90 ml 90 ml IV Total 1350.1666 ml 1380 ml Tube Feeding 315 ml 525 ml Output Urine Total 520 ml 630 ml # Bowel Movements 1 5 Laboratory Tests 05/16/20 21:24: POC Whole Blood Glucose 226H 05/17/20 05:17: White Blood Count 17.7H, Red Blood Count 3.31L, Hemoglobin 8.2L, Hematocrit 26.8L, Mean Corpuscular Volume 81, Mean Corpuscular Hemoglobin 24.8L, Mean Corpuscular Hemoglobin Concent 30.7L, Red Cell Distribution Width 15.9H, Platelet Count 422, Mean Platelet Volume 8.9, Neutrophils (%) (Auto) 80.2H, Lymphocytes (%) (Auto) 10.2L, Monocytes (%) (Auto) 6.9, Eosinophils (%) (Auto) 2.1, Basophils (%) (Auto) 0.7, Sodium Level 144, Potassium Level 3.8, Chloride Level 108H, Carbon Dioxide Level 25, Anion Gap 11, Blood Urea Nitrogen 33H, Creatinine 0.8, Estimat Glomerular Filtration Rate > 60, Glucose Level 238H, Calcium Level 8.0L, Magnesium Level 1.9, Total Bilirubin 0.3, Aspartate Amino Transf (AST/SGOT) 14L, Alanine Aminotransferase (ALT/SGPT) 17, Alkaline Phosphatase 130H, Troponin I 0.134H, Total Protein 5.9L, Albumin 1.9L, Globulin 4.0, Albumin/Globulin Ratio 0.5L Height (Feet): 5 Height (Inches): 4.00 Weight (Pounds): 202 General Appearance: WD/WN, alert, confused EENT: PERRL/EOMI, normal ENT inspection Neck: non-tender, normal alignment, supple Cardiovascular: no JVD, irregularly irregular Respiratory/Chest: lungs clear, normal breath sounds, no respiratory distress, no accessory muscle use Abdomen: normal bowel sounds, non tender, soft, no organomegaly Edema: no edema noted Arm (L), no edema noted Arm (R) Neurologic: alert, disoriented Skin: normal pigmentation Lymphatic: normal anterior cervical (L), normal anterior cervical (R) Sanjay Solano MD May 17, 2020 07:58
--- NOTE | 2020-05-17 08:00 | NUR ---
NURSE NOTES: LATE ENTRY: RECEIVED REPORT FROM Kiya POLANCO PT IN BED. NONVERBAL. FLAT EFFECT, NO TRACKING. PUPILS 3MM, SLUGGISH. SR ON MONITOR. TRACH TO VENT SHILEY 7. T-PIECE 5L. SECRETIONS SCANT. COUGH PRODUCTIVE. SUCTION VIA TRACH AND ORAL CAVITY. TRACH PATENT AND DRESSING INTACT. ABDOMEN ROUND, NON TENDER. NO BM AT THIS TIME. G TUBE, NO RESIDUALS. TUBE FEEDING RUNNING AT 50ML/HR. SOTO PATENT, DRAINING BELOW BLADDER, YELLOW URINE. SKIN- SEE ASSESSMENT. NO JVD. NON PITTING BILATERAL UPPER EXTREMITIES. HEMIPARESIS RT SIDED. LFA 18G. RFA 22G, NS RUNNING 100ML/HR. CARDIZEM 15ML/HR. AFEBRILE. STANDARD PRECAUTIONS IN PLACE. BED ALARM ON, BED LOCKED IN LOW POSITION. SIDE RAILSX3. WILL CONTINUE TO MONITOR PT. Addendum: 05/17/20 at 1557 by Kindra Brand RN AFIB ON MONITOR
--- NOTE | 2020-05-17 08:45 | History and Physical Report ---
DATE OF ADMISSION: 05/15/2020 HISTORY OF PRESENT ILLNESS: This is a 74-year-old female. She has a history of chronic atrial fibrillation, chronic respiratory failure, stroke, encephalopathy, diabetes was transferred from a half-way facility with complaints of atrial fibrillation with RVR. She was tachycardic into the 150s. Initially, she received several doses of IV Cardizem with some improvement in her heart rate, but she still remained uncontrolled and is now admitted to the intensive care unit. She is poorly responsive at baseline. She is unable provide any history. PAST MEDICAL HISTORY: As above. PAST SURGICAL HISTORY: Includes history of a trach and a G-tube. CURRENT MEDICATIONS: Reconciled and reviewed. ALLERGIES: None. FAMILY HISTORY: None. SOCIAL HISTORY: There is no known history of tobacco, ethanol, or drugs. REVIEW OF SYSTEMS: From the patient is unobtainable as she is confused. PHYSICAL EXAMINATION: VITAL SIGNS: Temperature 99, pulse 130, respirations 27, blood pressure 114/81. GENERAL: The patient is well-developed, chronically ill-appearing female. She is currently on trach collar. HEENT: Head is normocephalic and atraumatic. Oropharynx clear. Mucous membranes are moist. NECK: Supple. Trach site was midline without any discharge. HEART: . LUNGS: Clear. ABDOMEN: Soft, nontender, nondistended. EXTREMITIES: There is no cyanosis or edema. NEUROLOGIC: The patient is poorly responsive, is unable to comply with the neurologic exam. The patient does not respond to verbal or tactile stimuli. LABORATORY AND DIAGNOSTIC DATA: White count 16, hemoglobin 9.1, hematocrit 29, platelets of 420. Sodium 144, potassium 4.3, BUN 36, creatinine 0.8. Troponin 0.159. Natriuretic peptide was 11,000. D-dimer is 1.78. Urine was clear. Chest x-ray showed patchy left air space opacities. ASSESSMENT: This is a elderly unfortunate female with history of atrial fibrillation, chronic respiratory failure, diabetes, encephalopathy admitted with atrial fibrillation with RVR, sepsis, pneumonia, possible acute RI. PLAN: Broad-spectrum IV antibiotics. Followup cultures. Cardiology consultation and pulmonary consultation will be obtained. Continue Accu-Cheks with sliding scale. Check an A1c level. Monitor for bleeding on Eliquis. Stress ulcer prophylaxis. Sanjay Solano M.D. DR: Tyron JOB#: [id number] CC:
--- NOTE | 2020-05-17 09:13 | Critical Care Progress Note ---
Assessment/Plan Assessment/Plan IMPRESSION: 1. Shock, with possible sepsis. 2. Healthcare-acquired pneumonia, tracheostomy. 3. Atrial fibrillation with RVR 4. NSTEMI 5. Cerebrovascular disease 6. Dysphagia with G-tube. 7. Hypovolemia and dehydration. 8. Lactic acidosis. 9. leukocytosis 10. severe protein calorie malnutrition PLAN diltiazem IV iv antibiotics feeds vent monitor labs continue same medications/laboratory data/nursing notes/ICU care reviewed in detail note reviewed and edited care discussed with RN and RT ICU time spent >40 minutes Critical Care - Subjective ROS Limited/Unobtainable: Yes Condition: critical I&O: Intake and Output 05/16/20 05/17/20 19:00 07:00 Intake Total 1755.1666 ml 1995 ml Output Total 520 ml 630 ml Balance 1235.1666 ml 1365 ml Intake Free Water 90 ml 90 ml IV Total 1350.1666 ml 1380 ml Tube Feeding 315 ml 525 ml Output Urine Total 520 ml 630 ml # Bowel Movements 1 5 Critical Care - Objective Last 24 Hour Vital Signs Date Time Temp Pulse Resp B/P (MAP) Pulse Ox O2 Delivery O2 Flow Rate FiO2 05/17/20 06:30 133 24 108/75 (86) 100 05/17/20 06:00 133 24 99/76 (84) 99 05/17/20 05:30 133 22 120/70 (87) 100 05/17/20 05:00 134 27 106/77 (87) 99 05/17/20 04:30 130 25 106/87 (93) 99 05/17/20 04:00 99.0 135 27 114/81 (92) 100 05/17/20 04:00 130 05/17/20 04:00 T-piece 5.0 05/17/20 03:30 134 25 114/77 (89) 99 05/17/20 03:00 128 25 104/71 (82) 100 05/17/20 02:30 129 25 101/72 (82) 99 05/17/20 02:00 125 26 115/79 (91) 99 05/17/20 01:51 100 Cool Aerosol 5.0 28 05/17/20 01:30 131 25 114/68 (83) 100 05/17/20 01:00 122 24 114/70 (85) 100 05/17/20 00:30 114 24 107/81 (90) 100 05/17/20 00:00 110 05/17/20 00:00 98.8 114 27 92/60 (71) 95 05/17/20 00:00 T-piece 5.0 05/16/20 23:30 110 24 105/72 (83) 100 05/16/20 23:00 112 24 107/69 (82) 100 05/16/20 22:30 111 24 103/56 (72) 100 05/16/20 22:00 118 23 105/70 (82) 100 05/16/20 21:30 126 25 114/75 (88) 100 05/16/20 21:09 147 113/64 05/16/20 21:00 149 26 93/64 (74) 98 05/16/20 20:45 139 26 95/72 (80) 99 05/16/20 20:30 151 26 96/68 (77) 99 05/16/20 20:15 142 26 97/61 (73) 98 05/16/20 20:00 99.0 158 26 91/66 (74) 96 05/16/20 20:00 T-piece 5.0 05/16/20 19:45 157 33 120/72 (88) 98 05/16/20 19:44 100 Cool Aerosol 8.0 35 05/16/20 19:30 156 34 121/79 (93) 98 05/16/20 18:00 146 29 130/87 (101) 100 05/16/20 17:00 137 25 108/74 (85) 100 05/16/20 16:00 T-piece 5.0 05/16/20 16:00 128 05/16/20 16:00 98.2 130 25 97/71 (80) 96 05/16/20 15:00 131 24 100/80 (87) 100 05/16/20 14:04 159 91/67 05/16/20 14:00 155 27 91/67 (75) 100 05/16/20 13:51 100 Cool Aerosol 8.0 35 05/16/20 13:00 151 24 110/75 (87) 100 05/16/20 12:00 99.0 152 26 105/65 (78) 99 05/16/20 12:00 153 05/16/20 12:00 T-piece 5.0 05/16/20 11:00 132 27 108/68 (81) 100 05/16/20 10:00 141 26 103/66 (78) 97 05/16/20 09:48 98 Cool Aerosol 8.0 35 05/16/20 09:13 144 117/74 Labs: Labs Test 05/15/20 19:15 05/15/20 22:22 05/16/20 05:03 05/16/20 21:24 White Blood Count 16.4 K/UL (4.8-10.8) 17.0 K/UL (4.8-10.8) Red Blood Count 3.64 M/UL (4.20-5.40) 3.68 M/UL (4.20-5.40) Hemoglobin 9.1 G/DL (12.0-16.0) 9.3 G/DL (12.0-16.0) Hematocrit 29.8 % (37.0-47.0) 30.0 % (37.0-47.0) Mean Corpuscular Volume 82 FL (80-99) 81 FL (80-99) Mean Corpuscular Hemoglobin 25.1 PG (27.0-31.0) 25.2 PG (27.0-31.0) Mean Corpuscular Hemoglobin Concent 30.7 G/DL (32.0-36.0) 31.0 G/DL (32.0-36.0) Red Cell Distribution Width 16.1 % (11.6-14.8) 16.1 % (11.6-14.8) Platelet Count 420 K/UL (150-450) 363 K/UL (150-450) Mean Platelet Volume 9.3 FL (6.5-10.1) 8.4 FL (6.5-10.1) Neutrophils (%) (Auto) 78.4 % (45.0-75.0) 84.4 % (45.0-75.0) Lymphocytes (%) (Auto) 11.6 % (20.0-45.0) 9.8 % (20.0-45.0) Monocytes (%) (Auto) 6.5 % (1.0-10.0) 4.2 % (1.0-10.0) Eosinophils (%) (Auto) 2.7 % (0.0-3.0) 0.7 % (0.0-3.0) Basophils (%) (Auto) 0.8 % (0.0-2.0) 0.8 % (0.0-2.0) Prothrombin Time 12.4 SEC (9.30-11.50) Prothromb Time International Ratio 1.1 (0.9-1.1) Activated Partial Thromboplast Time 30 SEC (23-33) D-Dimer 1.78 mg/L FEU (0.00-0.49) Urine Color Yellow Urine Appearance Clear Urine pH 8.0 (4.5-8.0) Urine Specific Grandy 1.005 (1.005-1.035) Urine Protein Negative (NEGATIVE) Urine Glucose (UA) Negative (NEGATIVE) Urine Ketones Negative (NEGATIVE) Urine Blood Negative (NEGATIVE) Urine Nitrite Negative (NEGATIVE) Urine Bilirubin Negative (NEGATIVE) Urine Urobilinogen Normal MG/DL (0.0-1.0) Urine Leukocyte Esterase Negative (NEGATIVE) Sodium Level 142 MMOL/L (136-145) 144 MMOL/L (136-145) Potassium Level 4.3 MMOL/L (3.5-5.1) 4.3 MMOL/L (3.5-5.1) Chloride Level 102 MMOL/L (98-107) 106 MMOL/L (98-107) Carbon Dioxide Level 30 MMOL/L (21-32) 28 MMOL/L (21-32) Anion Gap 11 mmol/L (5-15) 10 mmol/L (5-15) Blood Urea Nitrogen 35 mg/dL (7-18) 36 mg/dL (7-18) Creatinine 0.8 MG/DL (0.55-1.30) 0.8 MG/DL (0.55-1.30) Estimat Glomerular Filtration Rate > 60 mL/min (>60) > 60 mL/min (>60) Glucose Level 226 MG/DL (74-106) 167 MG/DL (74-106) Lactic Acid Level 2.20 mmol/L (0.4-2.0) 2.10 mmol/L (0.66-2.22) Calcium Level 8.9 MG/DL (8.5-10.1) 9.0 MG/DL (8.5-10.1) Phosphorus Level 4.7 MG/DL (2.5-4.9) Magnesium Level 2.0 MG/DL (1.8-2.4) Ferritin 141 NG/ML (8-388) Total Bilirubin 0.2 MG/DL (0.2-1.0) 0.4 MG/DL (0.2-1.0) Aspartate Amino Transf (AST/SGOT) 15 U/L (15-37) 17 U/L (15-37) Alanine Aminotransferase (ALT/SGPT) 16 U/L (12-78) 23 U/L (12-78) Alkaline Phosphatase 134 U/L (46-116) 107 U/L (46-116) Lactate Dehydrogenase 291 U/L (81-234) Total Creatine Kinase 43 U/L (26-308) Creatine Kinase MB 1.1 NG/ML (0.0-3.6) Creatine Kinase MB Relative Index 2.5 Troponin I 0.194 ng/mL (0.000-0.056) 0.159 ng/mL (0.000-0.056) Total Protein 6.7 G/DL (6.4-8.2) 7.3 G/DL (6.4-8.2) Albumin 2.1 G/DL (3.4-5.0) 2.3 G/DL (3.4-5.0) Globulin 4.6 g/dL 5.0 g/dL Albumin/Globulin Ratio 0.5 (1.0-2.7) 0.5 (1.0-2.7) Pro-B-Type Natriuretic Peptide 22092 pg/mL (0-125) Thyroid Stimulating Hormone (TSH) 1.382 uiU/mL (0.358-3.740) POC Whole Blood Glucose 226 MG/DL (74-106) Test 05/17/20 05:17 White Blood Count 17.7 K/UL (4.8-10.8) Red Blood Count 3.31 M/UL (4.20-5.40) Hemoglobin 8.2 G/DL (12.0-16.0) Hematocrit 26.8 % (37.0-47.0) Mean Corpuscular Volume 81 FL (80-99) Mean Corpuscular Hemoglobin 24.8 PG (27.0-31.0) Mean Corpuscular Hemoglobin Concent 30.7 G/DL (32.0-36.0) Red Cell Distribution Width 15.9 % (11.6-14.8) Platelet Count 422 K/UL (150-450) Mean Platelet Volume 8.9 FL (6.5-10.1) Neutrophils (%) (Auto) 80.2 % (45.0-75.0) Lymphocytes (%) (Auto) 10.2 % (20.0-45.0) Monocytes (%) (Auto) 6.9 % (1.0-10.0) Eosinophils (%) (Auto) 2.1 % (0.0-3.0) Basophils (%) (Auto) 0.7 % (0.0-2.0) Sodium Level 144 MMOL/L (136-145) Potassium Level 3.8 MMOL/L (3.5-5.1) Chloride Level 108 MMOL/L (98-107) Carbon Dioxide Level 25 MMOL/L (21-32) Anion Gap 11 mmol/L (5-15) Blood Urea Nitrogen 33 mg/dL (7-18) Creatinine 0.8 MG/DL (0.55-1.30) Estimat Glomerular Filtration Rate > 60 mL/min (>60) Glucose Level 238 MG/DL (74-106) Calcium Level 8.0 MG/DL (8.5-10.1) Magnesium Level 1.9 MG/DL (1.8-2.4) Total Bilirubin 0.3 MG/DL (0.2-1.0) Aspartate Amino Transf (AST/SGOT) 14 U/L (15-37) Alanine Aminotransferase (ALT/SGPT) 17 U/L (12-78) Alkaline Phosphatase 130 U/L (46-116) Troponin I 0.134 ng/mL (0.000-0.056) Total Protein 5.9 G/DL (6.4-8.2) Albumin 1.9 G/DL (3.4-5.0) Globulin 4.0 g/dL Albumin/Globulin Ratio 0.5 (1.0-2.7) Objective: WDWN NAD reduced breath sounds bilaterally without rhonchi or wheeze [id number] tachy without MRG NABS nontender no HSM no CCE nonfocal poor LOC Micro: Microbiology Date/Time Source Procedure Growth Status 05/15/20 19:15 Blood Blood Culture - Preliminary NO GROWTH AFTER 24 HOURS Resulted 05/15/20 19:00 Blood Blood Culture - Preliminary NO GROWTH AFTER 24 HOURS Resulted 05/15/20 19:15 Nasopharynx SARS-CoV-2 RdRp Gene Assay - Final Complete Accucheck: 210 Fernie Martinez MD May 17, 2020 09:13
[2020-05-17] MEDS: Eliquis 5mg tablet GT SCH ×2 (09:26→17:44)
[2020-05-17] MEDS: Metoprolol Tartrate 50mg tab GT SCH ×2 (09:27→20:47)
--- NOTE | 2020-05-17 11:19 | Infectious Diseases Prog Note ---
Assessment/Plan Assessment/Plan antibiotics : vancomycin iv, zosyn A 1. pneumonia COVID 19 negative 2. respiratory failure 3. leucocytosis 4. diabetes mellitus 5. hypertension 6. dementia P 1. continue iv vancomycin, zosyn 2. will follow up cultures Subjective ROS Limited/Unobtainable: Yes Allergies: Coded Allergies: No Known Allergies (Unverified , 05/15/20) Objective Last 24 Hour Vital Signs Date Time Temp Pulse Resp B/P (MAP) Pulse Ox O2 Delivery O2 Flow Rate FiO2 05/17/20 10:00 141 27 116/78 (91) 99 05/17/20 09:30 135 27 118/79 (92) 100 05/17/20 09:27 136 118/58 05/17/20 09:00 136 24 113/86 (95) 99 05/17/20 08:30 136 26 114/93 (100) 99 05/17/20 08:00 T-piece 5.0 05/17/20 08:00 136 26 116/69 (85) 99 05/17/20 07:30 136 27 123/84 (97) 99 05/17/20 07:06 98 Cool Aerosol 5.0 28 05/17/20 07:00 99.0 138 27 115/83 (94) 99 05/17/20 06:30 133 24 108/75 (86) 100 05/17/20 06:00 133 24 99/76 (84) 99 05/17/20 05:30 133 22 120/70 (87) 100 05/17/20 05:00 134 27 106/77 (87) 99 05/17/20 04:30 130 25 106/87 (93) 99 05/17/20 04:00 99.0 135 27 114/81 (92) 100 05/17/20 04:00 130 05/17/20 04:00 T-piece 5.0 05/17/20 03:30 134 25 114/77 (89) 99 05/17/20 03:00 128 25 104/71 (82) 100 05/17/20 02:30 129 25 101/72 (82) 99 05/17/20 02:00 125 26 115/79 (91) 99 05/17/20 01:51 100 Cool Aerosol 5.0 28 05/17/20 01:30 131 25 114/68 (83) 100 05/17/20 01:00 122 24 114/70 (85) 100 05/17/20 00:30 114 24 107/81 (90) 100 05/17/20 00:00 110 05/17/20 00:00 98.8 114 27 92/60 (71) 95 05/17/20 00:00 T-piece 5.0 05/16/20 23:30 110 24 105/72 (83) 100 05/16/20 23:00 112 24 107/69 (82) 100 05/16/20 22:30 111 24 103/56 (72) 100 05/16/20 22:00 118 23 105/70 (82) 100 05/16/20 21:30 126 25 114/75 (88) 100 05/16/20 21:09 147 113/64 05/16/20 21:00 149 26 93/64 (74) 98 05/16/20 20:45 139 26 95/72 (80) 99 05/16/20 20:30 151 26 96/68 (77) 99 05/16/20 20:15 142 26 97/61 (73) 98 05/16/20 20:00 99.0 158 26 91/66 (74) 96 05/16/20 20:00 T-piece 5.0 05/16/20 19:45 157 33 120/72 (88) 98 05/16/20 19:44 100 Cool Aerosol 8.0 35 05/16/20 19:30 156 34 121/79 (93) 98 05/16/20 18:00 146 29 130/87 (101) 100 05/16/20 17:00 137 25 108/74 (85) 100 05/16/20 16:00 T-piece 5.0 05/16/20 16:00 128 05/16/20 16:00 98.2 130 25 97/71 (80) 96 05/16/20 15:00 131 24 100/80 (87) 100 05/16/20 14:04 159 91/67 05/16/20 14:00 155 27 91/67 (75) 100 05/16/20 13:51 100 Cool Aerosol 8.0 35 05/16/20 13:00 151 24 110/75 (87) 100 05/16/20 12:00 99.0 152 26 105/65 (78) 99 05/16/20 12:00 153 05/16/20 12:00 T-piece 5.0 Height (Feet): 5 Height (Inches): 4.00 Weight (Pounds): 202 HEENT: status post trach Respiratory/Chest: lungs clear Cardiovascular: normal rate, regular rhythm, no gallop/murmur Abdomen: soft, non tender, other - GT Extremities: no edema Microbiology Date/Time Source Procedure Growth Status 05/15/20 19:15 Blood Blood Culture - Preliminary NO GROWTH AFTER 24 HOURS Resulted 05/15/20 19:00 Blood Blood Culture - Preliminary NO GROWTH AFTER 24 HOURS Resulted 05/15/20 19:15 Nasopharynx SARS-CoV-2 RdRp Gene Assay - Final Complete Laboratory Tests Test 05/16/20 21:24 05/17/20 05:17 POC Whole Blood Glucose 226 MG/DL (74-106) H White Blood Count 17.7 K/UL (4.8-10.8) H Red Blood Count 3.31 M/UL (4.20-5.40) L Hemoglobin 8.2 G/DL (12.0-16.0) L Hematocrit 26.8 % (37.0-47.0) L Mean Corpuscular Volume 81 FL (80-99) Mean Corpuscular Hemoglobin 24.8 PG (27.0-31.0) L Mean Corpuscular Hemoglobin Concent 30.7 G/DL (32.0-36.0) L Red Cell Distribution Width 15.9 % (11.6-14.8) H Platelet Count 422 K/UL (150-450) Mean Platelet Volume 8.9 FL (6.5-10.1) Neutrophils (%) (Auto) 80.2 % (45.0-75.0) H Lymphocytes (%) (Auto) 10.2 % (20.0-45.0) L Monocytes (%) (Auto) 6.9 % (1.0-10.0) Eosinophils (%) (Auto) 2.1 % (0.0-3.0) Basophils (%) (Auto) 0.7 % (0.0-2.0) Sodium Level 144 MMOL/L (136-145) Potassium Level 3.8 MMOL/L (3.5-5.1) Chloride Level 108 MMOL/L (98-107) H Carbon Dioxide Level 25 MMOL/L (21-32) Anion Gap 11 mmol/L (5-15) Blood Urea Nitrogen 33 mg/dL (7-18) H Creatinine 0.8 MG/DL (0.55-1.30) Estimat Glomerular Filtration Rate > 60 mL/min (>60) Glucose Level 238 MG/DL (74-106) H Calcium Level 8.0 MG/DL (8.5-10.1) L Magnesium Level 1.9 MG/DL (1.8-2.4) Total Bilirubin 0.3 MG/DL (0.2-1.0) Aspartate Amino Transf (AST/SGOT) 14 U/L (15-37) L Alanine Aminotransferase (ALT/SGPT) 17 U/L (12-78) Alkaline Phosphatase 130 U/L (46-116) H Troponin I 0.134 ng/mL (0.000-0.056) Total Protein 5.9 G/DL (6.4-8.2) L Albumin 1.9 G/DL (3.4-5.0) L Globulin 4.0 g/dL Albumin/Globulin Ratio 0.5 (1.0-2.7) L Current Medications Medications (Trade) Dose Ordered Sig/Cayden Route PRN Reason Start Time Stop Time Status Last Admin Dose Admin Apixaban (Eliquis) 5 mg BID GT 05/16/20 09:00 08/14/20 08:59 05/17/20 09:26 Dextrose (Dextrose 50%) 25 ml Q30M PRN IV Hypoglycemia 05/16/20 01:30 08/14/20 01:29 Dextrose (Dextrose 50%) 50 ml Q30M PRN IV Hypoglycemia 05/16/20 01:30 08/14/20 01:29 Diltiazem HCl 125 ml @ 0 mls/hr Q24H IVPB 05/16/20 14:00 05/17/20 13:59 05/17/20 03:36 Insulin Aspart (NovoLOG) BEFORE MEALS AND HS SUBQ 05/16/20 06:30 08/14/20 06:29 05/17/20 06:46 Metoprolol Tartrate (Lopressor) 50 mg Q12HR GT 05/16/20 01:30 08/14/20 01:29 05/17/20 09:27 Piperacillin Sod/ Tazobactam Sod 3.375 gm/Sodium Chloride 110 ml @ 27.5 mls/hr Q8HR IVPB 05/16/20 06:00 05/23/20 05:59 05/17/20 05:39 Sodium Chloride 1,000 ml @ 100 mls/hr Q10H IV 05/16/20 01:30 06/15/20 01:29 05/17/20 05:37 Vancomycin HCl ([facility] pharmacy to dose) 1 ea DAILY PRN MISC Per rx protocol 05/16/20 01:30 06/15/20 01:29 Vancomycin HCl 1 gm/Dextrose 275 ml @ 183.708 mls/hr Q24H IVPB 05/16/20 20:00 05/21/20 19:59 05/16/20 20:24 Mina Salamanca MD May 17, 2020 11:19
--- NOTE | 2020-05-17 12:00 | NUR ---
NURSE NOTES: LATE ENTRY: PT IN BED. NONVERBAL. FLAT EFFECT, NO TRACKING. PUPILS 3MM, SLUGGISH. AFIB RVR ON MONITOR. TRACH TO VENT SHILEY 7. T-PIECE 5L. SECRETIONS SCANT. COUGH PRODUCTIVE.ORAL CARE PROVIDED. TRACH PATENT AND DRESSING INTACT. ABDOMEN ROUND, NON TENDER. ONE BM, LARGE BROWN, SOFT. PT CLEANED AND REPOSITIONED. G TUBE, NO RESIDUALS. TUBE FEEDING RUNNING AT 50ML/HR. SOTO PATENT, DRAINING BELOW BLADDER, YELLOW URINE.HEMIPARESIS RT SIDED. LFA 18G. RFA 22G, NS RUNNING 100ML/HR. CARDIZEM 15ML/HR. AFEBRILE. STANDARD PRECAUTIONS IN PLACE. BED ALARM ON, BED LOCKED IN LOW POSITION. WILL CONTINUE TO MONITOR PT.
--- NOTE | 2020-05-17 15:07 | Consultation ---
History of Present Illness General Date patient seen: May 17, 2020 Chief Complaint: General Complaint Present Illness HPI This is a 74-year-old female with history of CVA, chronic A. fib on Eliquis / carvedilol who presented with atrial fibrillation with RVR. Patient was noted to have tachycardia of around 150 to 160 bpm at the assisted. She was also diaphoretic and mildly tachypneic. She has a trach in place but is not ventilator dependent. She had normal oxygen saturation on room air per the assisted report. She has a G-tube in place as well. Patient is nonverbal at baseline but does respond to commands and move all extremities spontaneously. She is at her normal baseline mental status according to nursing paperwork. She is unable to participate in review of systems secondary to nonverbal baseline mental status. [place] [facility] [place]. surgery called to evaluate and assist with care. Allergies: Coded Allergies: No Known Allergies (Unverified , 05/15/20) Medication History Scheduled Acetaminophen 160MG/5ML* (Acetaminophen*), 20 ML GT DAILY, (Reported) Apixaban (Eliquis), 5 MG GT BID, (Reported) Carvedilol* (Carvedilol*), 3.125 MG GT BID, (Reported) Insulin Glargine (Lantus), 28 UNIT SUBQ BID, (Reported) Lansoprazole* (Lansoprazole*), 30 MG GT BID, (Reported) Modafinil* (Provigil), 200 MG GT DAILY, (Reported) Scheduled PRN Insulin Lispro (Insulin Lispro), 100 UNIT SQ for Sliding Scale, (Reported) Patient History Limited by: medical condition History Provided By: Medical Record, PMD Healthcare decision maker Resuscitation status Advanced Directive on File Past Medical/Surgical History Past Medical/Surgical History: (1) HCAP (healthcare-associated pneumonia) (2) Encounter for generalized patient complaints (3) Sepsis (4) Atrial fibrillation with RVR Review of Systems All Other Systems: negative except mentioned in HPI ROS Narrative limited given medical condition Physical Exam General Appearance: mild distress Lines, tubes and drains: peripheral HEENT: normocephalic, atraumatic, anicteric, mucous membranes moist Neck: supple, normal inspection, trach, other Respiratory/Chest: no respiratory distress, no accessory muscle use, decreased breath sounds, other Cardiovascular/Chest: tachycardia, arrhythmia Abdomen: soft, no organomegaly, no mass, other Genitourinary/Rectal: normal rectal exam Extremities: normal inspection, no calf tenderness, normal capillary refill Skin Exam: warm/dry Neurologic: alert Last 24 Hour Vital Signs Date Time Temp Pulse Resp B/P (MAP) Pulse Ox O2 Delivery O2 Flow Rate FiO2 05/17/20 14:00 133 28 118/81 (93) 99 05/17/20 13:00 138 29 118/84 (95) 99 05/17/20 12:56 99 Cool Aerosol 5.0 28 05/17/20 12:30 144 28 122/85 (97) 98 05/17/20 12:00 T-piece 5.0 05/17/20 12:00 99.2 135 26 116/76 (89) 98 05/17/20 12:00 118 05/17/20 11:00 119 20 114/90 (98) 99 05/17/20 10:30 112 28 102/73 (83) 99 05/17/20 10:00 141 27 116/78 (91) 99 05/17/20 09:30 135 27 118/79 (92) 100 05/17/20 09:27 136 118/58 05/17/20 09:00 136 24 113/86 (95) 99 05/17/20 08:30 136 26 114/93 (100) 99 05/17/20 08:00 T-piece 5.0 05/17/20 08:00 136 26 116/69 (85) 99 05/17/20 08:00 135 05/17/20 07:30 136 27 123/84 (97) 99 05/17/20 07:06 98 Cool Aerosol 5.0 28 05/17/20 07:00 99.0 138 27 115/83 (94) 99 05/17/20 06:30 133 24 108/75 (86) 100 05/17/20 06:00 133 24 99/76 (84) 99 05/17/20 05:30 133 22 120/70 (87) 100 05/17/20 05:00 134 27 106/77 (87) 99 05/17/20 04:30 130 25 106/87 (93) 99 05/17/20 04:00 99.0 135 27 114/81 (92) 100 05/17/20 04:00 130 8/18/20 04:00 T-piece 5.0 05/17/20 03:30 134 25 114/77 (89) 99 05/17/20 03:00 128 25 104/71 (82) 100 05/17/20 02:30 129 25 101/72 (82) 99 05/17/20 02:00 125 26 115/79 (91) 99 05/17/20 01:51 100 Cool Aerosol 5.0 28 05/17/20 01:30 131 25 114/68 (83) 100 05/17/20 01:00 122 24 114/70 (85) 100 05/17/20 00:30 114 24 107/81 (90) 100 05/17/20 00:00 110 05/17/20 00:00 98.8 114 27 92/60 (71) 95 05/17/20 00:00 T-piece 5.0 05/16/20 23:30 110 24 105/72 (83) 100 05/16/20 23:00 112 24 107/69 (82) 100 05/16/20 22:30 111 24 103/56 (72) 100 05/16/20 22:00 118 23 105/70 (82) 100 05/16/20 21:30 126 25 114/75 (88) 100 05/16/20 21:09 147 113/64 05/16/20 21:00 149 26 93/64 (74) 98 05/16/20 20:45 139 26 95/72 (80) 99 05/16/20 20:30 151 26 96/68 (77) 99 05/16/20 20:15 142 26 97/61 (73) 98 05/16/20 20:00 99.0 158 26 91/66 (74) 96 05/16/20 20:00 T-piece 5.0 05/16/20 19:45 157 33 120/72 (88) 98 05/16/20 19:44 100 Cool Aerosol 8.0 35 05/16/20 19:30 156 34 121/79 (93) 98 05/16/20 18:00 146 29 130/87 (101) 100 05/16/20 17:00 137 25 108/74 (85) 100 05/16/20 16:00 T-piece 5.0 05/16/20 16:00 128 05/16/20 16:00 98.2 130 25 97/71 (80) 96 Intake and Output 05/16/20 05/17/20 19:00 07:00 Intake Total 1755.1666 ml 1995 ml Output Total 520 ml 630 ml Balance 1235.1666 ml 1365 ml Intake Free Water 90 ml 90 ml IV Total 1350.1666 ml 1380 ml Tube Feeding 315 ml 525 ml Output Urine Total 520 ml 630 ml # Bowel Movements 1 5 Laboratory Tests Test 05/16/20 21:24 05/17/20 05:17 05/17/20 12:44 POC Whole Blood Glucose 226 MG/DL (74-106) H 241 MG/DL (74-106) H White Blood Count 17.7 K/UL (4.8-10.8) H Red Blood Count 3.31 M/UL (4.20-5.40) L Hemoglobin 8.2 G/DL (12.0-16.0) L Hematocrit 26.8 % (37.0-47.0) L Mean Corpuscular Volume 81 FL (80-99) Mean Corpuscular Hemoglobin 24.8 PG (27.0-31.0) L Mean Corpuscular Hemoglobin Concent 30.7 G/DL (32.0-36.0) L Red Cell Distribution Width 15.9 % (11.6-14.8) H Platelet Count 422 K/UL (150-450) Mean Platelet Volume 8.9 FL (6.5-10.1) Neutrophils (%) (Auto) 80.2 % (45.0-75.0) H Lymphocytes (%) (Auto) 10.2 % (20.0-45.0) L Monocytes (%) (Auto) 6.9 % (1.0-10.0) Eosinophils (%) (Auto) 2.1 % (0.0-3.0) Basophils (%) (Auto) 0.7 % (0.0-2.0) Sodium Level 144 MMOL/L (136-145) Potassium Level 3.8 MMOL/L (3.5-5.1) Chloride Level 108 MMOL/L (98-107) H Carbon Dioxide Level 25 MMOL/L (21-32) Anion Gap 11 mmol/L (5-15) Blood Urea Nitrogen 33 mg/dL (7-18) H Creatinine 0.8 MG/DL (0.55-1.30) Estimat Glomerular Filtration Rate > 60 mL/min (>60) Glucose Level 238 MG/DL (74-106) H Calcium Level 8.0 MG/DL (8.5-10.1) L Magnesium Level 1.9 MG/DL (1.8-2.4) Total Bilirubin 0.3 MG/DL (0.2-1.0) Aspartate Amino Transf (AST/SGOT) 14 U/L (15-37) L Alanine Aminotransferase (ALT/SGPT) 17 U/L (12-78) Alkaline Phosphatase 130 U/L (46-116) H Troponin I 0.134 ng/mL (0.000-0.056) Total Protein 5.9 G/DL (6.4-8.2) L Albumin 1.9 G/DL (3.4-5.0) L Globulin 4.0 g/dL Albumin/Globulin Ratio 0.5 (1.0-2.7) L Height (Feet): 5 Height (Inches): 4.00 Weight (Pounds): 202 Medications Current Medications Medications (Trade) Dose Ordered Sig/Cayden Route PRN Reason Start Time Stop Time Status Last Admin Dose Admin Apixaban (Eliquis) 5 mg BID GT 05/16/20 09:00 08/14/20 08:59 05/17/20 09:26 Dextrose (Dextrose 50%) 25 ml Q30M PRN IV Hypoglycemia 05/16/20 01:30 08/14/20 01:29 Dextrose (Dextrose 50%) 50 ml Q30M PRN IV Hypoglycemia 05/16/20 01:30 08/14/20 01:29 Insulin Aspart (NovoLOG) BEFORE MEALS AND HS SUBQ 05/16/20 06:30 08/14/20 06:29 05/17/20 12:48 Metoprolol Tartrate (Lopressor) 50 mg Q12HR GT 05/16/20 01:30 08/14/20 01:29 05/17/20 09:27 Piperacillin Sod/ Tazobactam Sod 3.375 gm/Sodium Chloride 110 ml @ 27.5 mls/hr Q8HR IVPB 05/16/20 06:00 05/23/20 05:59 05/17/20 13:24 Sodium Chloride 1,000 ml @ 100 mls/hr Q10H IV 05/16/20 01:30 06/15/20 01:29 05/17/20 05:37 Vancomycin HCl (Vanco pharmacy to dose) 1 ea DAILY PRN MISC Per rx protocol 05/16/20 01:30 06/15/20 01:29 Vancomycin HCl 1 gm/Dextrose 275 ml @ 183.708 mls/hr Q24H IVPB 05/16/20 20:00 05/21/20 19:59 05/16/20 20:24 Assessment/Plan Problem List: (1) HCAP (healthcare-associated pneumonia) ICD Codes: J18.9 - Pneumonia, unspecified organism SNOMED: 348838258, 878790241 (2) Encounter for generalized patient complaints ICD Codes: Z00.8 - Encounter for other general examination SNOMED: 548626016 (3) Sepsis Assessment & Plan: leukocytosis, anemia, lactic acidosis admitted to ICU on abx Pt presented on admission with generalized Edema,multiple Pressure Injuries and IAD. Unstageable Sacral Pressure Injury(L)11.4cm x (W)7.2cm. Base of wound is 80 % dry necrosis ,20% beefy red and moist,Edges are macerated.. Along immediate borders of wound is id dark and fluctuant with surrounding non-blanching erythema. No odor or exudate noted. DTPI noted to R Ischium. Base of wound is maroon and fluctuant (L)4cm x (W) 2.2cm. Incontinence Associated Dermatitis noted. Mons Pubis ,Perineum and clefts of buttocks are erythematous with scattered satellite lesions. Both heels are soft but blanchable. Both feet cool to touch toes on each feet are dusky . Scattered melasmas noted to upper and mid back. Skin assessed under tracheal collar and no evidence of skin breakdown noted. Tx.Plan: Cleanse Sacral wound with Saline. Apply Therahoney. Apply MOisture Barrier Periwound. Cover with Optifoam drsg Daily and prn. Apply Cavilon Skin Barrier to R ischium. Cover with Optifoam Drsg. Change every 3Days and PRN. Apply Moisture Barrier Paste to Perineal area , mid thighs and buttocks with each incontinence Care. Apply Cavilon Skin Barrier to Both heels and Malleoli. Cover each site with Optifoam drsgs. Change every 7 days PRN. Reposition at least every 2hours or as tolerated. Off-load Heels with PIllow. APM/DANIEL Mattress overlay. nutritional optimization wounds unlikely etiology of sepsis will monitor closely ICD Codes: A41.9 - Sepsis, unspecified organism SNOMED: 58538775, 409589806 (4) Atrial fibrillation with RVR ICD Codes: I48.91 - Unspecified atrial fibrillation SNOMED: 347073043333790 Adrian Gar May 17, 2020 15:07
--- NOTE | 2020-05-17 17:26 | NUR ---
CASE MANAGEMENT: REVIEW SI: A-FIB w/RVR T 99.2 HR 153 RR 28 BP 118/84 SAT 99% T-PIECE FIO2 28 WBC 17.7 H/H 8.2/26.8 GLUCOSE 241 TROP I 0.134 SPUTUM CX PENDING IS: CARDIZEM GTT VANCOMYCIN IV Q24HR ZOSYN IV Q8HR NS IVF @ 100ML/HR ICU STATUS DCP: PATIENT IS FROM [facility]
--- NOTE | 2020-05-17 17:32 | NUR ---
INSURANCE CLINICALS/REVIEW FAXED TO [facility] @ FULL RISK #[phone] FAX#[phone]
[2020-05-17] MEDS ORDERED: Digoxin 0.5mg/2ml Inj IVP SCH ×3 (18:15→23:30)
--- NOTE | 2020-05-17 18:20 | NUR ---
NURSE NOTES: LATE ENTRY: MD. BROOKS HERE TO SEE PT. WAS INFORMED OF PT HR 123-140. ON CARDIZEM DRIP AT 15MG/HR. K 3.8. TROPONIN 0.134. NO S/S OF PAIN. CONTINUE CARDIZEM DRIP, WILL ADD DIGOXIN AND KDUR.
--- NOTE | 2020-05-17 19:30 | NUR ---
NURSE NOTES: Received pt with eyes close arousable to tactile stimulation , left arm able to move the rest of the extremities flaccid, Afib on the monitor, bp stable afebrile, On cardizem drip at 15mg/hr infusing to left forearm, site atraumatic. Pt has pressure sores sacral area, and left buttocks all are covered with optifoam . pt on p200 mattress. Turned q hrs prn with good skin care done.
[2020-05-17] MEDS: Vancomycin 1gm/D5W 275ml IVPB SCH ×2 (20:17)
--- NOTE | 2020-05-17 21:00 | NUR ---
NURSE NOTES: Digoxin 0.25mg IVP was given pe Dr Valeria cooley
--- NOTE | 2020-05-17 22:00 | NUR ---
NURSE NOTES: Afib rate 100/min after Digoxin 0.25mg ivp
--- NOTE | 2020-05-17 23:30 | NUR ---
NURSE NOTES: Another dose of Digoxin 0.25mg IVP was given
--- NOTE | 2020-05-17 23:57 | Cardiology Progress Note ---
Subjective DATE OF SERVICE: May 17, 2020 Remains in rapid atrial fibrillation - on IV diltiazem and oral beta pietro BP better; no pressors needed On-going trach care Objective Last 24 Hour Vital Signs Date Time Temp Pulse Resp B/P (MAP) Pulse Ox O2 Delivery O2 Flow Rate FiO2 05/17/20 23:30 99 24 120/77 (91) 98 05/17/20 23:00 99 25 134/62 (86) 96 05/17/20 22:30 98 25 141/91 (108) 97 05/17/20 22:00 99 25 120/63 (82) 98 05/17/20 21:30 101 26 125/97 (106) 99 05/17/20 21:00 105 25 128/81 (97) 99 05/17/20 20:51 129 05/17/20 20:47 129 113/71 05/17/20 20:30 108 25 113/71 (85) 99 05/17/20 20:08 93 Cool Aerosol 5.0 28 05/17/20 20:00 98.8 109 26 124/77 (93) 97 05/17/20 20:00 T-piece 5.0 05/17/20 19:30 118 24 108/65 (79) 96 05/17/20 19:00 124 25 126/88 (101) 98 05/17/20 18:34 112 05/17/20 18:30 153 27 119/71 (87) 98 05/17/20 18:00 128 32 110/81 (91) 98 05/17/20 17:30 119 31 127/82 (97) 98 05/17/20 17:00 152 29 128/80 (96) 99 05/17/20 16:00 153 05/17/20 16:00 T-piece 5.0 05/17/20 16:00 153 29 129/81 (97) 99 05/17/20 15:00 152 29 114/75 (88) 99 05/17/20 14:00 133 28 118/81 (93) 99 05/17/20 13:00 138 29 118/84 (95) 99 05/17/20 12:56 99 Cool Aerosol 5.0 28 05/17/20 12:30 144 28 122/85 (97) 98 05/17/20 12:00 T-piece 5.0 05/17/20 12:00 99.2 135 26 116/76 (89) 98 05/17/20 12:00 118 05/17/20 11:00 119 20 114/90 (98) 99 05/17/20 10:30 112 28 102/73 (83) 99 05/17/20 10:00 141 27 116/78 (91) 99 05/17/20 09:30 135 27 118/79 (92) 100 05/17/20 09:27 136 118/58 05/17/20 09:00 136 24 113/86 (95) 99 05/17/20 08:30 136 26 114/93 (100) 99 05/17/20 08:00 T-piece 5.0 05/17/20 08:00 136 26 116/69 (85) 99 05/17/20 08:00 135 05/17/20 07:30 136 27 123/84 (97) 99 05/17/20 07:06 98 Cool Aerosol 5.0 28 05/17/20 07:00 99.0 138 27 115/83 (94) 99 05/17/20 06:30 133 24 108/75 (86) 100 05/17/20 06:00 133 24 99/76 (84) 99 05/17/20 05:30 133 22 120/70 (87) 100 05/17/20 05:00 134 27 106/77 (87) 99 05/17/20 04:30 130 25 106/87 (93) 99 05/17/20 04:00 99.0 135 27 114/81 (92) 100 05/17/20 04:00 130 05/17/20 04:00 T-piece 5.0 05/17/20 03:30 134 25 114/77 (89) 99 05/17/20 03:00 128 25 104/71 (82) 100 05/17/20 02:30 129 25 101/72 (82) 99 05/17/20 02:00 125 26 115/79 (91) 99 05/17/20 01:51 100 Cool Aerosol 5.0 28 05/17/20 01:30 131 25 114/68 (83) 100 05/17/20 01:00 122 24 114/70 (85) 100 05/17/20 00:30 114 24 107/81 (90) 100 05/17/20 00:00 110 05/17/20 00:00 98.8 114 27 92/60 (71) 95 05/17/20 00:00 T-piece 5.0 ROS: unchanged from my eval 05/15/20 HEENT: Thin Trach secretions RHYTHM: Afib LUNGS: bilateral rhonchi CARDIAC: normal S1 and S2, irregularly irregular, rapid rate ABDOMEN: normal bowel sounds, non tender, G-Tube intact EXTREMITIES: No edema Laboratory Tests Test 05/17/20 05:17 05/17/20 12:44 05/17/20 17:39 White Blood Count 17.7 K/UL (4.8-10.8) H Red Blood Count 3.31 M/UL (4.20-5.40) L Hemoglobin 8.2 G/DL (12.0-16.0) L Hematocrit 26.8 % (37.0-47.0) L Mean Corpuscular Volume 81 FL (80-99) Mean Corpuscular Hemoglobin 24.8 PG (27.0-31.0) L Mean Corpuscular Hemoglobin Concent 30.7 G/DL (32.0-36.0) L Red Cell Distribution Width 15.9 % (11.6-14.8) H Platelet Count 422 K/UL (150-450) Mean Platelet Volume 8.9 FL (6.5-10.1) Neutrophils (%) (Auto) 80.2 % (45.0-75.0) H Lymphocytes (%) (Auto) 10.2 % (20.0-45.0) L Monocytes (%) (Auto) 6.9 % (1.0-10.0) Eosinophils (%) (Auto) 2.1 % (0.0-3.0) Basophils (%) (Auto) 0.7 % (0.0-2.0) Sodium Level 144 MMOL/L (136-145) Potassium Level 3.8 MMOL/L (3.5-5.1) Chloride Level 108 MMOL/L (98-107) H Carbon Dioxide Level 25 MMOL/L (21-32) Anion Gap 11 mmol/L (5-15) Blood Urea Nitrogen 33 mg/dL (7-18) H Creatinine 0.8 MG/DL (0.55-1.30) Estimat Glomerular Filtration Rate > 60 mL/min (>60) Glucose Level 238 MG/DL (74-106) H Calcium Level 8.0 MG/DL (8.5-10.1) L Magnesium Level 1.9 MG/DL (1.8-2.4) Total Bilirubin 0.3 MG/DL (0.2-1.0) Aspartate Amino Transf (AST/SGOT) 14 U/L (15-37) L Alanine Aminotransferase (ALT/SGPT) 17 U/L (12-78) Alkaline Phosphatase 130 U/L (46-116) H Troponin I 0.134 ng/mL (0.000-0.056) Total Protein 5.9 G/DL (6.4-8.2) L Albumin 1.9 G/DL (3.4-5.0) L Globulin 4.0 g/dL Albumin/Globulin Ratio 0.5 (1.0-2.7) L POC Whole Blood Glucose 241 MG/DL (74-106) H Pending Microbiology Date/Time Source Procedure Growth Status 05/15/20 19:15 Blood Blood Culture - Preliminary NO GROWTH AFTER 24 HOURS Resulted 05/15/20 19:00 Blood Blood Culture - Preliminary NO GROWTH AFTER 24 HOURS Resulted 05/15/20 19:15 Nasopharynx SARS-CoV-2 RdRp Gene Assay - Final Complete Assessment/Plan Assessment/Plan Remains CRITICAL & GUARDED Sepsis with shock Healthcare associated PNA NSTE myocardial infarction Chronic AFib with RVR Lactic acidosis resolved Hypovolemia/dehydration Severe protein calorie malnutrition Resp rx IVF IV diltiazem - titrate Continue beta pietro Full anti-coagulation Digitalize John Heard MD May 17, 2020 23:57
[2020-05-18] VITALS (33 sets, daily range): BP systolic 117–170; BP diastolic 52–107
--- NOTE | 2020-05-18 | NUR ---
NURSE NOTES: Afib rate 104/min after Digoxin 0.25mg iv, Still on diltiazem drip at 15mg/hr.
--- NOTE | 2020-05-18 02:00 | NUR ---
NURSE NOTES: Had frequent soft small stools after pt cough, cleaned up pt.
--- NOTE | 2020-05-18 04:00 | NUR ---
NURSE NOTES: Complete bath with bed changed was done.
[2020-05-18] MEDS: dilTIAZem Premix 125mg/125ml 125 ML IVPB SCH (04:08)
[2020-05-18 05:19] LABS: HEMATOCRIT 29.1 % (37.0-47.0); MEAN CORPUSCULAR VOLUME 81 FL (80-99); PLATELET COUNT 427 K/UL (150-450); RED BLOOD COUNT 3.61 M/UL (4.20-5.40); RED CELL DISTRIBUTION WIDTH 16.4 % (11.6-14.8); WHITE BLOOD COUNT 20.9 K/UL (4.8-10.8)
[2020-05-18] MEDS: Piperacillin/Tazobactam 3.375 GM in NS 110 ML IVPB SCH (05:37)
[2020-05-18 05:58] LABS: ALANINE AMINOTRANSFERASE 21 U/L (12-78); ALBUMIN 1.9 G/DL (3.4-5.0); ALBUMIN/GLOBULIN RATIO 0.5 (1.0-2.7); ALKALINE PHOSPHATASE 108 U/L (46-116); ANION GAP 7 mmol/L (5-15); ASPARTATE AMINO TRANSFERASE 13 U/L (15-37); BILIRUBIN,TOTAL 0.3 MG/DL (0.2-1.0); BLOOD UREA NITROGEN 24 mg/dL (7-18); CALCIUM 8.3 MG/DL (8.5-10.1); CARBON DIOXIDE 26 MMOL/L (21-32); CHLORIDE 109 MMOL/L (98-107); CREATININE 0.7 MG/DL (0.55-1.30); POTASSIUM 3.7 MMOL/L (3.5-5.1); SODIUM 142 MMOL/L (136-145)
--- NOTE | 2020-05-18 06:00 | NUR ---
NURSE NOTES: Cardizem down to 10mg/hr at this time. Pt on Afib on the 70s
[2020-05-18] MEDS: NovoLOG Insulin Flexpen SUBQ SCH ×4 (06:09→20:32)
--- NOTE | 2020-05-18 07:24 | NUR ---
NURSE HAND-OFF REPORT: Latest Vital Signs: Temperature 98.2 , Pulse 74 , B/P 154 /58 , Respiratory Rate 25 , O2 SAT 99 , T-piece, O2 Flow Rate 5.0 . Vital Sign Comment: EKG Rhythm: Atrial Fibrillation Rhythm change?: N MD Notified?: N - MD Response: Latest Hernandez Fall Score: 40 Fall Risk: Medium Risk Safety Measures: Call light Within Reach, Bed Alarm Zone 2, Side Rails Side Rails x3, Bed position Low and Locked. Fall Precautions: Report given to .
--- NOTE | 2020-05-18 07:30 | NUR ---
NURSE NOTES: LATE ENTRY: RECEIVED REPORT FROM Kiya COLLINS PT IN BED. NONVERBAL. FLAT EFFECT, NO TRACKING. PUPILS 3MM, SLUGGISH. SR ON MONITOR. TRACH TO VENT SHILEY 7. T-PIECE 5L. SECRETIONS SCANT. TRACH DRESSING, DRY AND INTACT. ABDOMEN ROUND, NON TENDER. ONE BM , BROWN PASTY, WILL CLEAN. G TUBE, NO RESIDUALS. TUBE FEEDING RUNNING AT 50ML/HR. SOTO PATENT, DRAINING BELOW BLADDER, YELLOW URINE. SKIN- SEE ASSESSMENT. NO JVD. NON PITTING BILATERAL UPPER EXTREMITIES. HEMIPARESIS RT SIDED. LFA 18G. RFA 22G, CARDIZEM 10ML/HR. AFEBRILE. STANDARD PRECAUTIONS IN PLACE. BED ALARM ON, BED LOCKED IN LOW POSITION. SIDE RAILSX3. WILL CONTINUE TO MONITOR PT.
--- NOTE | 2020-05-18 08:36 | NUR ---
NURSE NOTES: MD TINOCO HERE TO SEE PT. WAS INFORMED PT NEEDS PROTONIX AND CODE STATUS, MD WILL CONTACT FAMILY REGARDING MATTER AND WILL PLACE ORDER.
--- NOTE | 2020-05-18 08:41 | Diagnostic Imaging Report ---
Indication: Shortness of breath Technique: One view of the chest Comparison: 05/15/2020 Findings: Stable satisfactory position of tracheostomy. Left pleural effusion persists. Interstitial and hazy airspace edema persists, may be slightly improved. The heart is borderline enlarged. Impression: Stable slightly improved interstitial and hazy airspace edema, since 05/15/2020 Persistent small left pleural effusion Borderline cardiomegaly
--- NOTE | 2020-05-18 08:45 | NUR ---
NURSE NOTES: LATE ENTRY: CALLED [facility] TO INFORM PT CONVERTED TO SR/ BBB. TROPONIN 0.153. SPOKE WITH MATTEO. AWAITING CALL BACK.
--- NOTE | 2020-05-18 08:49 | NUR ---
RADIOLOGY DEPT., CHEST X-RAY DONE.-P.DYE
--- NOTE | 2020-05-18 08:58 | General Progress Note ---
Assessment/Plan Problem List: (1) HCAP (healthcare-associated pneumonia) ICD Codes: J18.9 - Pneumonia, unspecified organism SNOMED: 174858420, 773699100 (2) Encounter for generalized patient complaints ICD Codes: Z00.8 - Encounter for other general examination SNOMED: 741075801 (3) Sepsis ICD Codes: A41.9 - Sepsis, unspecified organism SNOMED: 07233867, 501602551 (4) Atrial fibrillation with RVR ICD Codes: I48.91 - Unspecified atrial fibrillation SNOMED: 650939527241881 Status: stable, not improved Assessment/Plan: cardizem drip per cards oral metoprolol eliquis for stroke prophylaxis monitor for bleeding tube feeds resp care stress ulcer prophylaxis monitor labs lytes cards and pulm noted no answer at sons number full code by default Subjective ROS Limited/Unobtainable: Yes Constitutional: Reports: malaise, weakness HEENT: Reports: no symptoms Cardiovascular: Reports: no symptoms Respiratory: Reports: shortness of breath, sputum Gastrointestinal/Abdominal: Reports: difficulty swallowing Genitourinary: Reports: no symptoms Neurologic/Psychiatric: Reports: pre-existing deficit Endocrine: Reports: no symptoms Hematologic/Lymphatic: Reports: no symptoms Allergies: Coded Allergies: No Known Allergies (Unverified , 05/15/20) All Systems: reviewed and negative except above Subjective converted to sinus. now 60s. no distress. on trach collar. poorly responsive and confused. no fevers. cxr with improving edema. Objective Last 24 Hour Vital Signs Date Time Temp Pulse Resp B/P (MAP) Pulse Ox O2 Delivery O2 Flow Rate FiO2 05/18/20 08:00 74 05/18/20 07:38 100 Cool Aerosol 5.0 28 05/18/20 06:30 74 25 154/58 (90) 99 05/18/20 06:00 72 24 149/57 (87) 97 05/18/20 05:30 71 24 145/59 (87) 96 05/18/20 05:00 73 23 146/59 (88) 99 05/18/20 04:30 114 26 138/107 (117) 96 05/18/20 04:00 112 05/18/20 04:00 T-piece 5.0 05/18/20 04:00 98.2 106 24 117/68 (84) 98 05/18/20 03:30 100 24 120/59 (79) 96 8 03:00 111 24 118/71 (87) 97 05/18/20 02:30 115 24 140/85 (103) 95 05/18/20 02:00 104 24 145/73 (97) 96 05/18/20 01:30 110 26 121/67 (85) 96 05/18/20 01:00 117 28 143/85 (104) 97 05/18/20 00:56 95 Cool Aerosol 5.0 28 05/18/20 00:30 106 28 160/95 (116) 97 05/18/20 00:05 110 05/18/20 00:00 T-piece 5.0 05/18/20 00:00 98.4 100 25 124/54 (77) 97 05/18/20 00:00 100 25 124/54 (77) 97 05/17/20 23:30 99 24 120/77 (91) 98 18/20 23:00 99 25 134/62 (86) 96 1820 22:30 98 25 141/91 (108) 97 818/20 22:00 99 25 120/63 (82) 98 818/20 21:30 101 26 125/97 (106) 99 818/20 21:00 105 25 128/81 (97) 99 18/20 20:51 129 18/20 20:47 129 113/71 18/20 20:30 108 25 113/71 (85) 99 18/20 20:08 93 Cool Aerosol 5.0 28 20 20:00 110 18/20 20:00 98.8 109 26 124/77 (93) 97 818/20 20:00 T-piece 5.0 20 19:30 118 24 108/65 (79) 96 818/20 19:00 124 25 126/88 (101) 98 18/20 18:34 112 18/20 18:30 153 27 119/71 (87) 98 818/20 18:00 128 32 110/81 (91) 98 8/18/20 17:30 119 31 127/82 (97) 98 8/18/20 17:00 152 29 128/80 (96) 99 818/20 16:00 153 05/17/20 16:00 T-piece 5.0 05/17/20 16:00 153 29 129/81 (97) 99 05/17/20 15:00 152 29 114/75 (88) 99 05/17/20 14:00 133 28 118/81 (93) 99 05/17/20 13:00 138 29 118/84 (95) 99 05/17/20 12:56 99 Cool Aerosol 5.0 28 05/17/20 12:30 144 28 122/85 (97) 98 05/17/20 12:00 T-piece 5.0 05/17/20 12:00 99.2 135 26 116/76 (89) 98 05/17/20 12:00 118 05/17/20 11:00 119 20 114/90 (98) 99 05/17/20 10:30 112 28 102/73 (83) 99 05/17/20 10:00 141 27 116/78 (91) 99 05/17/20 09:30 135 27 118/79 (92) 100 05/17/20 09:27 136 118/58 05/17/20 09:00 136 24 113/86 (95) 99 Intake and Output 05/17/20 05/18/20 19:00 07:00 Intake Total 1660.0 ml 827.5 ml Output Total 470 ml 520 ml Balance 1190.0 ml 307.5 ml Intake Free Water 90 ml IV Total 1000.0 ml 187.5 ml Tube Feeding 600 ml 550 ml Other 60 ml Output Urine Total 470 ml 520 ml # Bowel Movements 4 5 Laboratory Tests 05/17/20 12:44: POC Whole Blood Glucose 241H 05/17/20 17:39: POC Whole Blood Glucose [Pending] 05/18/20 04:15: White Blood Count 20.9H, Red Blood Count 3.61L, Hemoglobin 9.0L, Hematocrit 29.1L, Mean Corpuscular Volume 81, Mean Corpuscular Hemoglobin 24.8L, Mean Corpuscular Hemoglobin Concent 30.8L, Red Cell Distribution Width 16.4H, Platelet Count 427, Mean Platelet Volume 8.4, Neutrophils (%) (Auto) , Lymphocytes (%) (Auto) , Monocytes (%) (Auto) , Eosinophils (%) (Auto) , Basophils (%) (Auto) , Neutrophils % (Manual) [Pending], Lymphocytes % (Manual) [Pending], Platelet Estimate [Pending], Platelet Morphology [Pending], Sodium Level 142, Potassium Level 3.7, Chloride Level 109H, Carbon Dioxide Level 26, Anion Gap 7, Blood Urea Nitrogen 24H, Creatinine 0.7, Estimat Glomerular Filtration Rate > 60, Glucose Level 191H, Calcium Level 8.3L, Total Bilirubin 0.3, Aspartate Amino Transf (AST/SGOT) 13L, Alanine Aminotransferase (ALT/SGPT) 21, Alkaline Phosphatase 108, Troponin I 0.153H, Pro-B-Type Natriuretic Peptide 8586H, Total Protein 6.0L, Albumin 1.9L, Globulin 4.1, Albumin/Globulin Ratio 0.5L Height (Feet): 5 Height (Inches): 4.00 Weight (Pounds): 186 General Appearance: WD/WN, lethargic, confused EENT: PERRL/EOMI, normal ENT inspection Neck: non-tender, normal alignment, supple Cardiovascular: normal peripheral pulses Respiratory/Chest: lungs clear, normal breath sounds, no respiratory distress, no accessory muscle use Abdomen: normal bowel sounds, non tender, soft, no organomegaly Edema: no edema noted Arm (L), no edema noted Arm (R) Neurologic: disoriented, unresponsive, aphasia Skin: normal pigmentation Lymphatic: normal anterior cervical (L), normal anterior cervical (R) Sanjay Solano MD May 18, 2020 08:58
[2020-05-18] MEDS: Metoprolol Tartrate 50mg tab GT SCH ×2 (09:31→20:29)
[2020-05-18] MEDS: Eliquis 5mg tablet GT SCH ×2 (09:31→17:24)
--- NOTE | 2020-05-18 09:38 | Critical Care Progress Note ---
Assessment/Plan Assessment/Plan IMPRESSION: 1. Shock, with possible sepsis. 2. Healthcare-acquired pneumonia, tracheostomy. 3. Atrial fibrillation with RVR 4. NSTEMI 5. Cerebrovascular disease 6. Dysphagia with G-tube. 7. Hypovolemia and dehydration. 8. Lactic acidosis. 9. leukocytosis 10. severe protein calorie malnutrition PLAN transition to PO iv antibiotics feeds vent monitor labs transition to tele as able per cards medications/laboratory data/nursing notes/ICU care reviewed in detail note reviewed and edited care discussed with RN and RT ICU time spent >40 minutes Critical Care - Subjective ROS Limited/Unobtainable: Yes Condition: critical EKG Rhythm: Atrial Fibrillation Residuals: minimal Tube Feeding Tolerated: yes I&O: Intake and Output 05/17/20 05/18/20 19:00 07:00 Intake Total 1660.0 ml 827.5 ml Output Total 470 ml 520 ml Balance 1190.0 ml 307.5 ml Intake Free Water 90 ml IV Total 1000.0 ml 187.5 ml Tube Feeding 600 ml 550 ml Other 60 ml Output Urine Total 470 ml 520 ml # Bowel Movements 4 5 Critical Care - Objective Last 24 Hour Vital Signs Date Time Temp Pulse Resp B/P (MAP) Pulse Ox O2 Delivery O2 Flow Rate FiO2 05/18/20 09:31 75 152/86 05/18/20 08:00 74 05/18/20 07:38 100 Cool Aerosol 5.0 28 05/18/20 06:30 74 25 154/58 (90) 99 05/18/20 06:00 72 24 149/57 (87) 97 05/18/20 05:30 71 24 145/59 (87) 96 05/18/20 05:00 73 23 146/59 (88) 99 05/18/20 04:30 114 26 138/107 (117) 96 05/18/20 04:00 112 05/18/20 04:00 T-piece 5.0 05/18/20 04:00 98.2 106 24 117/68 (84) 98 05/18/20 03:30 100 24 120/59 (79) 96 05/18/20 03:00 111 24 118/71 (87) 97 05/18/20 02:30 115 24 140/85 (103) 95 05/18/20 02:00 104 24 145/73 (97) 96 8/19/20 01:30 110 26 121/67 (85) 96 20 01:00 117 28 143/85 (104) 97 05/18/20 00:56 95 Cool Aerosol 5.0 28 05/18/20 00:30 106 28 160/95 (116) 97 20 00:05 110 05/18/20 00:00 T-piece 5.0 05/18/20 00:00 98.4 100 25 124/54 (77) 97 20 00:00 100 25 124/54 (77) 97 1820 23:30 99 24 120/77 (91) 98 1820 23:00 99 25 134/62 (86) 96 20 22:30 98 25 141/91 (108) 97 20 22:00 99 25 120/63 (82) 98 20 21:30 101 26 125/97 (106) 99 1820 21:00 105 25 128/81 (97) 99 1820 20:51 129 20 20:47 129 113/71 20 20:30 108 25 113/71 (85) 99 1820 20:08 93 Cool Aerosol 5.0 28 05/17/20 20:00 110 05/17/20 20:00 98.8 109 26 124/77 (93) 97 1820 20:00 T-piece 5.0 05/17/20 19:30 118 24 108/65 (79) 96 20 19:00 124 25 126/88 (101) 98 05/17/20 18:34 112 20 18:30 153 27 119/71 (87) 98 1820 18:00 128 32 110/81 (91) 98 18/20 17:30 119 31 127/82 (97) 98 1820 17:00 152 29 128/80 (96) 99 20 16:00 153 81820 16:00 T-piece 5.0 05/17/20 16:00 153 29 129/81 (97) 99 1820 15:00 152 29 114/75 (88) 99 20 14:00 133 28 118/81 (93) 99 05/17/20 13:00 138 29 118/84 (95) 99 05/17/20 12:56 99 Cool Aerosol 5.0 28 05/17/20 12:30 144 28 122/85 (97) 98 05/17/20 12:00 T-piece 5.0 05/17/20 12:00 99.2 135 26 116/76 (89) 98 05/17/20 12:00 118 05/17/20 11:00 119 20 114/90 (98) 99 05/17/20 10:30 112 28 102/73 (83) 99 05/17/20 10:00 141 27 116/78 (91) 99 Labs: Labs Test 05/15/20 19:15 05/15/20 22:22 05/16/20 05:03 05/16/20 21:24 White Blood Count 16.4 K/UL (4.8-10.8) 17.0 K/UL (4.8-10.8) Red Blood Count 3.64 M/UL (4.20-5.40) 3.68 M/UL (4.20-5.40) Hemoglobin 9.1 G/DL (12.0-16.0) 9.3 G/DL (12.0-16.0) Hematocrit 29.8 % (37.0-47.0) 30.0 % (37.0-47.0) Mean Corpuscular Volume 82 FL (80-99) 81 FL (80-99) Mean Corpuscular Hemoglobin 25.1 PG (27.0-31.0) 25.2 PG (27.0-31.0) Mean Corpuscular Hemoglobin Concent 30.7 G/DL (32.0-36.0) 31.0 G/DL (32.0-36.0) Red Cell Distribution Width 16.1 % (11.6-14.8) 16.1 % (11.6-14.8) Platelet Count 420 K/UL (150-450) 363 K/UL (150-450) Mean Platelet Volume 9.3 FL (6.5-10.1) 8.4 FL (6.5-10.1) Neutrophils (%) (Auto) 78.4 % (45.0-75.0) 84.4 % (45.0-75.0) Lymphocytes (%) (Auto) 11.6 % (20.0-45.0) 9.8 % (20.0-45.0) Monocytes (%) (Auto) 6.5 % (1.0-10.0) 4.2 % (1.0-10.0) Eosinophils (%) (Auto) 2.7 % (0.0-3.0) 0.7 % (0.0-3.0) Basophils (%) (Auto) 0.8 % (0.0-2.0) 0.8 % (0.0-2.0) Prothrombin Time 12.4 SEC (9.30-11.50) Prothromb Time International Ratio 1.1 (0.9-1.1) Activated Partial Thromboplast Time 30 SEC (23-33) D-Dimer 1.78 mg/L FEU (0.00-0.49) Urine Color Yellow Urine Appearance Clear Urine pH 8.0 (4.5-8.0) Urine Specific Hooper 1.005 (1.005-1.035) Urine Protein Negative (NEGATIVE) Urine Glucose (UA) Negative (NEGATIVE) Urine Ketones Negative (NEGATIVE) Urine Blood Negative (NEGATIVE) Urine Nitrite Negative (NEGATIVE) Urine Bilirubin Negative (NEGATIVE) Urine Urobilinogen Normal MG/DL (0.0-1.0) Urine Leukocyte Esterase Negative (NEGATIVE) Sodium Level 142 MMOL/L (136-145) 144 MMOL/L (136-145) Potassium Level 4.3 MMOL/L (3.5-5.1) 4.3 MMOL/L (3.5-5.1) Chloride Level 102 MMOL/L (98-107) 106 MMOL/L (98-107) Carbon Dioxide Level 30 MMOL/L (21-32) 28 MMOL/L (21-32) Anion Gap 11 mmol/L (5-15) 10 mmol/L (5-15) Blood Urea Nitrogen 35 mg/dL (7-18) 36 mg/dL (7-18) Creatinine 0.8 MG/DL (0.55-1.30) 0.8 MG/DL (0.55-1.30) Estimat Glomerular Filtration Rate > 60 mL/min (>60) > 60 mL/min (>60) Glucose Level 226 MG/DL (74-106) 167 MG/DL (74-106) Lactic Acid Level 2.20 mmol/L (0.4-2.0) 2.10 mmol/L (0.66-2.22) Calcium Level 8.9 MG/DL (8.5-10.1) 9.0 MG/DL (8.5-10.1) Phosphorus Level 4.7 MG/DL (2.5-4.9) Magnesium Level 2.0 MG/DL (1.8-2.4) Ferritin 141 NG/ML (8-388) Total Bilirubin 0.2 MG/DL (0.2-1.0) 0.4 MG/DL (0.2-1.0) Aspartate Amino Transf (AST/SGOT) 15 U/L (15-37) 17 U/L (15-37) Alanine Aminotransferase (ALT/SGPT) 16 U/L (12-78) 23 U/L (12-78) Alkaline Phosphatase 134 U/L (46-116) 107 U/L (46-116) Lactate Dehydrogenase 291 U/L (81-234) Total Creatine Kinase 43 U/L (26-308) Creatine Kinase MB 1.1 NG/ML (0.0-3.6) Creatine Kinase MB Relative Index 2.5 Troponin I 0.194 ng/mL (0.000-0.056) 0.159 ng/mL (0.000-0.056) Total Protein 6.7 G/DL (6.4-8.2) 7.3 G/DL (6.4-8.2) Albumin 2.1 G/DL (3.4-5.0) 2.3 G/DL (3.4-5.0) Globulin 4.6 g/dL 5.0 g/dL Albumin/Globulin Ratio 0.5 (1.0-2.7) 0.5 (1.0-2.7) Pro-B-Type Natriuretic Peptide 21218 pg/mL (0-125) Thyroid Stimulating Hormone (TSH) 1.382 uiU/mL (0.358-3.740) POC Whole Blood Glucose 226 MG/DL (74-106) Test 05/17/20 05:17 05/17/20 12:44 05/17/20 17:39 8/19/20 04:15 White Blood Count 17.7 K/UL (4.8-10.8) 20.9 K/UL (4.8-10.8) Red Blood Count 3.31 M/UL (4.20-5.40) 3.61 M/UL (4.20-5.40) Hemoglobin 8.2 G/DL (12.0-16.0) 9.0 G/DL (12.0-16.0) Hematocrit 26.8 % (37.0-47.0) 29.1 % (37.0-47.0) Mean Corpuscular Volume 81 FL (80-99) 81 FL (80-99) Mean Corpuscular Hemoglobin 24.8 PG (27.0-31.0) 24.8 PG (27.0-31.0) Mean Corpuscular Hemoglobin Concent 30.7 G/DL (32.0-36.0) 30.8 G/DL (32.0-36.0) Red Cell Distribution Width 15.9 % (11.6-14.8) 16.4 % (11.6-14.8) Platelet Count 422 K/UL (150-450) 427 K/UL (150-450) Mean Platelet Volume 8.9 FL (6.5-10.1) 8.4 FL (6.5-10.1) Neutrophils (%) (Auto) 80.2 % (45.0-75.0) % (45.0-75.0) Lymphocytes (%) (Auto) 10.2 % (20.0-45.0) % (20.0-45.0) Monocytes (%) (Auto) 6.9 % (1.0-10.0) % (1.0-10.0) Eosinophils (%) (Auto) 2.1 % (0.0-3.0) % (0.0-3.0) Basophils (%) (Auto) 0.7 % (0.0-2.0) % (0.0-2.0) Sodium Level 144 MMOL/L (136-145) 142 MMOL/L (136-145) Potassium Level 3.8 MMOL/L (3.5-5.1) 3.7 MMOL/L (3.5-5.1) Chloride Level 108 MMOL/L (98-107) 109 MMOL/L (98-107) Carbon Dioxide Level 25 MMOL/L (21-32) 26 MMOL/L (21-32) Anion Gap 11 mmol/L (5-15) 7 mmol/L (5-15) Blood Urea Nitrogen 33 mg/dL (7-18) 24 mg/dL (7-18) Creatinine 0.8 MG/DL (0.55-1.30) 0.7 MG/DL (0.55-1.30) Estimat Glomerular Filtration Rate > 60 mL/min (>60) > 60 mL/min (>60) Glucose Level 238 MG/DL (74-106) 191 MG/DL (74-106) Calcium Level 8.0 MG/DL (8.5-10.1) 8.3 MG/DL (8.5-10.1) Magnesium Level 1.9 MG/DL (1.8-2.4) Total Bilirubin 0.3 MG/DL (0.2-1.0) 0.3 MG/DL (0.2-1.0) Aspartate Amino Transf (AST/SGOT) 14 U/L (15-37) 13 U/L (15-37) Alanine Aminotransferase (ALT/SGPT) 17 U/L (12-78) 21 U/L (12-78) Alkaline Phosphatase 130 U/L (46-116) 108 U/L (46-116) Troponin I 0.134 ng/mL (0.000-0.056) 0.153 ng/mL (0.000-0.056) Total Protein 5.9 G/DL (6.4-8.2) 6.0 G/DL (6.4-8.2) Albumin 1.9 G/DL (3.4-5.0) 1.9 G/DL (3.4-5.0) Globulin 4.0 g/dL 4.1 g/dL Albumin/Globulin Ratio 0.5 (1.0-2.7) 0.5 (1.0-2.7) POC Whole Blood Glucose 241 MG/DL (74-106) Pro-B-Type Natriuretic Peptide 8586 pg/mL (0-125) Objective: WDWN NAD reduced breath sounds bilaterally without rhonchi or wheeze S1S2 irregular without MRG NABS nontender no HSM no CCE nonfocal poor LOC Micro: Microbiology Date/Time Source Procedure Growth Status 05/15/20 19:15 Blood Blood Culture - Preliminary NO GROWTH AFTER 48 HOURS Resulted 05/15/20 19:00 Blood Blood Culture - Preliminary NO GROWTH AFTER 48 HOURS Resulted 05/17/20 05:20 Sputum Induced Gram Stain - Final Resulted 05/17/20 05:20 Sputum Induced Sputum Culture Pending Resulted 05/15/20 19:20 Nasal Nares MRSA Culture - Final NO METHICILLIN RESISTANT STAPH AUREUS... Complete 05/15/20 19:15 Nasopharynx SARS-CoV-2 RdRp Gene Assay - Final Complete Accucheck: 177 Fernie Martinez MD May 18, 2020 09:38
--- NOTE | 2020-05-18 09:51 | NUR ---
NURSE NOTES: LATE ENTRY: MD. ZELAYA HERE TO SEE PT. WAS INFORMED OFF CARDIZEM DRIP SINCE NOON. WBC 20.9, TROPONIN 1.053, AWAITING CALL BACK FROM MD BROOKS. STATES PT CAN TRANSFER TO [facility] ONCE OFF DRIP.
--- NOTE | 2020-05-18 10:23 | NUR ---
NURSE NOTES: LATE ENTRY: MD. LARSON HERE TO SEE PT. WAS INFORMED PT NEW ONSET CONTACT ISOLATION FOR VRE RECTUM. WBC 20.9, AFEBRILE. WILL PLACE OWN ORDER.
--- NOTE | 2020-05-18 11:30 | NUR ---
NURSE NOTES: LATE ENTRY: PT CLEANED, REPOSITIONED. NO DISTRESS NOTED. PROVIDED WITH COOL CLOTH, COOLING MEASURES DUE TO WEATHER. ACCU CHK 212 INSULIN GIVEN SUBCUT.
--- NOTE | 2020-05-18 11:31 | Infectious Diseases Prog Note ---
Assessment/Plan Assessment/Plan antibiotics : vancomycin iv, zosyn A 1. pneumonia COVID 19 negative 2. respiratory failure 3. leucocytosis increased 4. diabetes mellitus 5. hypertension 6. dementia P 1. continue iv vancomycin 2. d/c zosyn 3. start meropenem 4. will follow up cultures Subjective ROS Limited/Unobtainable: Yes Allergies: Coded Allergies: No Known Allergies (Unverified , 05/15/20) Objective Last 24 Hour Vital Signs Date Time Temp Pulse Resp B/P (MAP) Pulse Ox O2 Delivery O2 Flow Rate FiO2 05/18/20 10:00 77 28 157/66 (96) 98 05/18/20 09:31 75 152/86 05/18/20 09:30 77 23 152/69 (96) 97 05/18/20 09:00 78 25 150/63 (92) 97 05/18/20 08:30 79 27 160/63 (95) 98 05/18/20 08:00 T-piece 5.0 05/18/20 08:00 74 05/18/20 08:00 77 24 163/66 (98) 97 05/18/20 07:38 100 Cool Aerosol 5.0 28 05/18/20 07:30 75 26 140/57 (84) 99 05/18/20 07:00 98.8 72 24 147/53 (84) 100 05/18/20 06:30 74 25 154/58 (90) 99 05/18/20 06:00 72 24 149/57 (87) 97 05/18/20 05:30 71 24 145/59 (87) 96 05/18/20 05:00 73 23 146/59 (88) 99 05/18/20 04:30 114 26 138/107 (117) 96 05/18/20 04:00 112 05/18/20 04:00 T-piece 5.0 05/18/20 04:00 98.2 106 24 117/68 (84) 98 05/18/20 03:30 100 24 120/59 (79) 96 05/18/20 03:00 111 24 118/71 (87) 97 05/18/20 02:30 115 24 140/85 (103) 95 05/18/20 02:00 104 24 145/73 (97) 96 05/18/20 01:30 110 26 121/67 (85) 96 8/19/20 01:00 117 28 143/85 (104) 97 8/20 00:56 95 Cool Aerosol 5.0 28 820 00:30 106 28 160/95 (116) 97 8/20 00:05 110 820 00:00 T-piece 5.0 05/18/20 00:00 98.4 100 25 124/54 (77) 97 81920 00:00 100 25 124/54 (77) 97 818/20 23:30 99 24 120/77 (91) 98 818/20 23:00 99 25 134/62 (86) 96 818/20 22:30 98 25 141/91 (108) 97 818/20 22:00 99 25 120/63 (82) 98 818/20 21:30 101 26 125/97 (106) 99 818/20 21:00 105 25 128/81 (97) 99 1820 20:51 129 1820 20:47 129 113/71 81820 20:30 108 25 113/71 (85) 99 1820 20:08 93 Cool Aerosol 5.0 28 05/17/20 20:00 110 20 20:00 98.8 109 26 124/77 (93) 97 81820 20:00 T-piece 5.0 05/17/20 19:30 118 24 108/65 (79) 96 818/20 19:00 124 25 126/88 (101) 98 1820 18:34 112 1820 18:30 153 27 119/71 (87) 98 818/20 18:00 128 32 110/81 (91) 98 818/20 17:30 119 31 127/82 (97) 98 818/20 17:00 152 29 128/80 (96) 99 818/20 16:00 153 8/18/20 16:00 T-piece 5.0 1820 16:00 153 29 129/81 (97) 99 818/20 15:00 152 29 114/75 (88) 99 818/20 14:00 133 28 118/81 (93) 99 8/18/20 13:00 138 29 118/84 (95) 99 05/17/20 12:56 99 Cool Aerosol 5.0 28 05/17/20 12:30 144 28 122/85 (97) 98 05/17/20 12:00 T-piece 5.0 05/17/20 12:00 99.2 135 26 116/76 (89) 98 05/17/20 12:00 118 Height (Feet): 5 Height (Inches): 4.00 Weight (Pounds): 186 HEENT: status post trach Respiratory/Chest: lungs clear Cardiovascular: normal rate, regular rhythm, no gallop/murmur Abdomen: soft, non tender, other - GT Extremities: no edema Microbiology Date/Time Source Procedure Growth Status 05/15/20 19:15 Blood Blood Culture - Preliminary NO GROWTH AFTER 48 HOURS Resulted 05/15/20 19:00 Blood Blood Culture - Preliminary NO GROWTH AFTER 48 HOURS Resulted 05/17/20 05:20 Sputum Induced Gram Stain - Final Resulted 05/17/20 05:20 Sputum Induced Sputum Culture Pending Resulted 05/15/20 19:20 Nasal Nares MRSA Culture - Final NO METHICILLIN RESISTANT STAPH AUREUS... Complete 05/15/20 19:15 Nasopharynx SARS-CoV-2 RdRp Gene Assay - Final Complete 05/15/20 19:20 Rectum VRE Culture - Final Enterococcus Faecalis - Vre Complete Laboratory Tests Test 05/17/20 12:44 05/17/20 17:39 05/18/20 04:15 POC Whole Blood Glucose 241 MG/DL (74-106) H Pending White Blood Count 20.9 K/UL (4.8-10.8) H Red Blood Count 3.61 M/UL (4.20-5.40) L Hemoglobin 9.0 G/DL (12.0-16.0) L Hematocrit 29.1 % (37.0-47.0) L Mean Corpuscular Volume 81 FL (80-99) Mean Corpuscular Hemoglobin 24.8 PG (27.0-31.0) L Mean Corpuscular Hemoglobin Concent 30.8 G/DL (32.0-36.0) L Red Cell Distribution Width 16.4 % (11.6-14.8) H Platelet Count 427 K/UL (150-450) Mean Platelet Volume 8.4 FL (6.5-10.1) Neutrophils (%) (Auto) % (45.0-75.0) Lymphocytes (%) (Auto) % (20.0-45.0) Monocytes (%) (Auto) % (1.0-10.0) Eosinophils (%) (Auto) % (0.0-3.0) Basophils (%) (Auto) % (0.0-2.0) Differential Total Cells Counted 100 Neutrophils % (Manual) 71 % (45-75) Lymphocytes % (Manual) 13 % (20-45) L Monocytes % (Manual) 11 % (1-10) H Eosinophils % (Manual) 4 % (0-3) H Basophils % (Manual) 1 % (0-2) Band Neutrophils 0 % (0-8) Platelet Estimate Adequate Platelet Morphology Normal Hypochromasia 1+ Anisocytosis 1+ Microcytosis Rare Sodium Level 142 MMOL/L (136-145) Potassium Level 3.7 MMOL/L (3.5-5.1) Chloride Level 109 MMOL/L (98-107) H Carbon Dioxide Level 26 MMOL/L (21-32) Anion Gap 7 mmol/L (5-15) Blood Urea Nitrogen 24 mg/dL (7-18) H Creatinine 0.7 MG/DL (0.55-1.30) Estimat Glomerular Filtration Rate > 60 mL/min (>60) Glucose Level 191 MG/DL (74-106) H Calcium Level 8.3 MG/DL (8.5-10.1) L Total Bilirubin 0.3 MG/DL (0.2-1.0) Aspartate Amino Transf (AST/SGOT) 13 U/L (15-37) L Alanine Aminotransferase (ALT/SGPT) 21 U/L (12-78) Alkaline Phosphatase 108 U/L (46-116) Troponin I 0.153 ng/mL (0.000-0.056) Pro-B-Type Natriuretic Peptide 8586 pg/mL (0-125) H Total Protein 6.0 G/DL (6.4-8.2) L Albumin 1.9 G/DL (3.4-5.0) L Globulin 4.1 g/dL Albumin/Globulin Ratio 0.5 (1.0-2.7) L Current Medications Medications (Trade) Dose Ordered Sig/Cayden Route PRN Reason Start Time Stop Time Status Last Admin Dose Admin Apixaban (Eliquis) 5 mg BID GT 05/16/20 09:00 08/14/20 08:59 05/18/20 09:31 Dextrose (Dextrose 50%) 25 ml Q30M PRN IV Hypoglycemia 05/16/20 01:30 08/14/20 01:29 Dextrose (Dextrose 50%) 50 ml Q30M PRN IV Hypoglycemia 05/16/20 01:30 08/14/20 01:29 Diltiazem HCl 125 ml @ 0 mls/hr Q24H IVPB 05/17/20 19:00 05/18/20 18:59 05/18/20 04:08 Insulin Aspart (NovoLOG) BEFORE MEALS AND HS SUBQ 05/16/20 06:30 08/14/20 06:29 05/18/20 06:09 Metoprolol Tartrate (Lopressor) 50 mg Q12HR GT 05/16/20 01:30 08/14/20 01:29 05/18/20 09:31 Piperacillin Sod/ Tazobactam Sod 3.375 gm/Sodium Chloride 110 ml @ 27.5 mls/hr Q8HR IVPB 05/16/20 06:00 05/23/20 05:59 05/18/20 05:37 Vancomycin HCl ([facility]anco pharmacy to dose) 1 ea DAILY PRN MISC Per rx protocol 05/16/20 01:30 06/15/20 01:29 Vancomycin HCl 1 gm/Dextrose 275 ml @ 183.708 mls/hr Q24H IVPB 05/16/20 20:00 05/21/20 19:59 05/17/20 20:17 Mina Salamanca MD May 18, 2020 11:31
--- NOTE | 2020-05-18 13:49 | NUR ---
NURSE NOTES: LATE ENTRY: MD BROOKS CALLED TO CHECK ON PT. WAS INFORMED PT CONVERTED TO SR HR 71. BP STABLE. OFF CARDIZEM DRIP SINCE NOON. PT RECEIVED LOPRESSOR TODAY. BBB PRESENT AND TROPONIN 0.153, TREND UP FROM YESTERDAY. RECEIVED ORDER TO TRANSFER PT TO SDU.
[2020-05-18] MEDS ORDERED: Meropenem 500 MG in NS 55 ML IVPB SCH (14:00)
--- NOTE | 2020-05-18 14:50 | Surgery Progress Note ---
Surgery Progress Note Subjective Additional Comments no acute events exam stable labs noted Objective Last 24 Hour Vital Signs Date Time Temp Pulse Resp B/P (MAP) Pulse Ox O2 Delivery O2 Flow Rate FiO2 05/18/20 13:00 77 24 139/53 (81) 98 05/18/20 12:46 96 Cool Aerosol 5.0 28 05/18/20 12:30 80 27 97 05/18/20 12:00 98.5 84 25 126/57 (80) 95 05/18/20 12:00 T-piece 5.0 05/18/20 12:00 81 05/18/20 11:45 80 28 160/66 (97) 98 05/18/20 11:30 80 29 169/62 (97) 98 05/18/20 11:15 80 30 166/67 (100) 99 05/18/20 11:00 78 28 170/65 (100) 99 05/18/20 10:51 77 27 158/67 (97) 98 05/18/20 10:30 76 28 99 05/18/20 10:00 77 28 157/66 (96) 98 05/18/20 09:31 75 152/86 05/18/20 09:30 77 23 152/69 (96) 97 05/18/20 09:00 78 25 150/63 (92) 97 05/18/20 08:30 79 27 160/63 (95) 98 05/18/20 08:00 T-piece 5.0 05/18/20 08:00 74 05/18/20 08:00 77 24 163/66 (98) 97 05/18/20 07:38 100 Cool Aerosol 5.0 28 05/18/20 07:30 75 26 140/57 (84) 99 05/18/20 07:00 98.8 72 24 147/53 (84) 100 05/18/20 06:30 74 25 154/58 (90) 99 05/18/20 06:00 72 24 149/57 (87) 97 05/18/20 05:30 71 24 145/59 (87) 96 05/18/20 05:00 73 23 146/59 (88) 99 05/18/20 04:30 114 26 138/107 (117) 96 05/18/20 04:00 112 05/18/20 04:00 T-piece 5.0 05/18/20 04:00 98.2 106 24 117/68 (84) 98 819/20 03:30 100 24 120/59 (79) 96 8 03:00 111 24 118/71 (87) 97 820 02:30 115 24 140/85 (103) 95 8 02:00 104 24 145/73 (97) 96 05/18/20 01:30 110 26 121/67 (85) 96 8 01:00 117 28 143/85 (104) 97 05/18/20 00:56 95 Cool Aerosol 5.0 28 05/18/20 00:30 106 28 160/95 (116) 97 05/18/20 00:05 110 05/18/20 00:00 T-piece 5.0 05/18/20 00:00 98.4 100 25 124/54 (77) 97 81920 00:00 100 25 124/54 (77) 97 818/20 23:30 99 24 120/77 (91) 98 818/20 23:00 99 25 134/62 (86) 96 8/18/20 22:30 98 25 141/91 (108) 97 8/18/20 22:00 99 25 120/63 (82) 98 8/18/20 21:30 101 26 125/97 (106) 99 8/18/20 21:00 105 25 128/81 (97) 99 8/18/20 20:51 129 8/18/20 20:47 129 113/71 818/20 20:30 108 25 113/71 (85) 99 818/20 20:08 93 Cool Aerosol 5.0 28 818/20 20:00 110 8/18/20 20:00 98.8 109 26 124/77 (93) 97 8/18/20 20:00 T-piece 5.0 18/20 19:30 118 24 108/65 (79) 96 8/18/20 19:00 124 25 126/88 (101) 98 8/18/20 18:34 112 8/18/20 18:30 153 27 119/71 (87) 98 8/18/20 18:00 128 32 110/81 (91) 98 8/18/20 17:30 119 31 127/82 (97) 98 8/18/20 17:00 152 29 128/80 (96) 99 05/17/20 16:00 153 05/17/20 16:00 T-piece 5.0 05/17/20 16:00 153 29 129/81 (97) 99 05/17/20 15:00 152 29 114/75 (88) 99 I&O Intake and Output 05/17/20 05/18/20 19:00 07:00 Intake Total 1660.0 ml 945.0 ml Output Total 470 ml 555 ml Balance 1190.0 ml 390.0 ml Intake Free Water 90 ml IV Total 1000.0 ml 225.0 ml Tube Feeding 600 ml 600 ml Other 60 ml 30 ml Output Urine Total 470 ml 555 ml # Bowel Movements 4 5 Dressing: other Wound: other Cardiovascular: RSR Respiratory: decreased breath sounds Abdomen: soft, non-tender Extremities: no cyanosis Laboratory Tests Test 05/17/20 17:39 05/18/20 04:15 POC Whole Blood Glucose Pending White Blood Count 20.9 K/UL (4.8-10.8) H Red Blood Count 3.61 M/UL (4.20-5.40) L Hemoglobin 9.0 G/DL (12.0-16.0) L Hematocrit 29.1 % (37.0-47.0) L Mean Corpuscular Volume 81 FL (80-99) Mean Corpuscular Hemoglobin 24.8 PG (27.0-31.0) L Mean Corpuscular Hemoglobin Concent 30.8 G/DL (32.0-36.0) L Red Cell Distribution Width 16.4 % (11.6-14.8) H Platelet Count 427 K/UL (150-450) Mean Platelet Volume 8.4 FL (6.5-10.1) Neutrophils (%) (Auto) % (45.0-75.0) Lymphocytes (%) (Auto) % (20.0-45.0) Monocytes (%) (Auto) % (1.0-10.0) Eosinophils (%) (Auto) % (0.0-3.0) Basophils (%) (Auto) % (0.0-2.0) Differential Total Cells Counted 100 Neutrophils % (Manual) 71 % (45-75) Lymphocytes % (Manual) 13 % (20-45) L Monocytes % (Manual) 11 % (1-10) H Eosinophils % (Manual) 4 % (0-3) H Basophils % (Manual) 1 % (0-2) Band Neutrophils 0 % (0-8) Platelet Estimate Adequate Platelet Morphology Normal Hypochromasia 1+ Anisocytosis 1+ Microcytosis Rare Sodium Level 142 MMOL/L (136-145) Potassium Level 3.7 MMOL/L (3.5-5.1) Chloride Level 109 MMOL/L (98-107) H Carbon Dioxide Level 26 MMOL/L (21-32) Anion Gap 7 mmol/L (5-15) Blood Urea Nitrogen 24 mg/dL (7-18) H Creatinine 0.7 MG/DL (0.55-1.30) Estimat Glomerular Filtration Rate > 60 mL/min (>60) Glucose Level 191 MG/DL (74-106) H Calcium Level 8.3 MG/DL (8.5-10.1) L Total Bilirubin 0.3 MG/DL (0.2-1.0) Aspartate Amino Transf (AST/SGOT) 13 U/L (15-37) L Alanine Aminotransferase (ALT/SGPT) 21 U/L (12-78) Alkaline Phosphatase 108 U/L (46-116) Troponin I 0.153 ng/mL (0.000-0.056) Pro-B-Type Natriuretic Peptide 8586 pg/mL (0-125) H Total Protein 6.0 G/DL (6.4-8.2) L Albumin 1.9 G/DL (3.4-5.0) L Globulin 4.1 g/dL Albumin/Globulin Ratio 0.5 (1.0-2.7) L Plan Problems: (1) HCAP (healthcare-associated pneumonia) (2) Encounter for generalized patient complaints (3) Sepsis Assessment & Plan: leukocytosis, anemia, lactic acidosis admitted to ICU on abx Pt presented on admission with generalized Edema,multiple Pressure Injuries and IAD. Unstageable Sacral Pressure Injury(L)11.4cm x (W)7.2cm. Base of wound is 80 % dry necrosis ,20% beefy red and moist,Edges are macerated.. Along immediate borders of wound is id dark and fluctuant with surrounding non-blanching erythema. No odor or exudate noted. DTPI noted to R Ischium. Base of wound is maroon and fluctuant (L)4cm x (W) 2.2cm. Incontinence Associated Dermatitis noted. Mons Pubis ,Perineum and clefts of buttocks are erythematous with scattered satellite lesions. Both heels are soft but blanchable. Both feet cool to touch toes on each feet are dusky . Scattered melasmas noted to upper and mid back. Skin assessed under tracheal collar and no evidence of skin breakdown noted. Tx.Plan: Cleanse Sacral wound with Saline. Apply Therahoney. Apply MOisture Barrier Periwound. Cover with Optifoam drsg Daily and prn. Apply Cavilon Skin Barrier to R ischium. Cover with Optifoam Drsg. Change every 3Days and PRN. Apply Moisture Barrier Paste to Perineal area , mid thighs and buttocks with each incontinence Care. Apply Cavilon Skin Barrier to Both heels and Malleoli. Cover each site with Optifoam drsgs. Change every 7 days PRN. Reposition at least every 2hours or as tolerated. Off-load Heels with PIllow. APM/DANIEL Mattress overlay. nutritional optimization wounds unlikely etiology of sepsis will monitor closely (4) Atrial fibrillation with RVR Adrian Gar May 18, 2020 14:50
--- NOTE | 2020-05-18 17:40 | NUR ---
CASE MANAGEMENT: REVIEW 05/18/20 SI: NSTEMI. A-FIB w/RVR 98.8 84 28 147/56 95% T-PIECE FIO2 28 TROP 0.153 WBC 20.9 BUN 24 CA+ 8.3 BNP 8586 IS: CARDIZEM GTT VANCOMYCIN IV Q24HR IV MEROPENEM TID LOPRESSOR GT BID NS IVF @ 100ML/HR ICU STATUS DCP: PATIENT IS FROM [facility]
--- NOTE | 2020-05-18 17:43 | NUR ---
*-* INSURANCE *-* UPDATED CLINICALS AND REVIEWS HAVE BEEN FAXED TO: KEM[employer] @ [employer] #[phone] FAX#[phone]
--- NOTE | 2020-05-18 18:33 | NUR ---
NURSE NOTES: Patient's transferred from ICU, nurse report given by KARLENE Arguelles. Patient's in stable condition, no s/s of distress or SOB, obtunded, no s/s of pain using FLACC score, AAO x 0. Bed low and locked, call light within reach, side rails x 3, bed alarm is armed. IV is running fluid, no s/s of tenderness or infiltration. T-piece 5L, saturating at 98%. GT noted, running at 50cc, no residual noted. Hinkle noted, draining well, yellow color, blood sediments noted. Belonging list signed by both nurses at bedside. Wounds assessment performed and pictures are taken. Will continue to monitor. VS taken: BP 155/69, HR 88, O2 98%, Temp 36.8 Celcius, RR 20.
--- NOTE | 2020-05-18 18:42 | NUR ---
TRANSFER TO FLOOR: Patient transferred to [facility], per . Report given to CONNOR/ ROSAMARIA Sevilla Belongings and medications given to R.N . Family and or S/O informed of transfer. YES Addendum: 05/18/20 at 1843 by Kindra Brand RN TIME OF TRANSFER [id number].
--- NOTE | 2020-05-18 19:12 | NUR ---
NURSE HAND-OFF REPORT: Important Events on Shift: Transferred from ICU, patient converted to SR from AFIB w' RVR Patient Status: Fair Diet: Glucerna 1.2 at 50 Pending Orders: N/a Pending Results/Labs: AM lab Pending MD notification:N/a Latest Vital Signs: Temperature 98.8 , Pulse 81 , B/P 146 /57 , Respiratory Rate 23 , O2 SAT 98 , T-piece, O2 Flow Rate 5.0 . Vital Sign Comment: EKG Rhythm: SR W/ BBB Rhythm change?: N Notified?: Kp BOONE. TODD MILLIGAN Response: Message left await call Latest Hernandez Fall Score: 55 Fall Risk: High Risk Safety Measures: Call light Within Reach, Bed Alarm Zone 2, Side Rails Side Rails x3, Bed position Low and Locked. Fall Precautions: Report given to KARLENE JUNIOR.
--- NOTE | 2020-05-18 19:15 | NUR ---
NURSE NOTES: Received report from KARLENE Wilkins. Patient awake, opens eyes, flat affect, afebrile and no respiratory distress noted. Trache to vent on Shiley 7 with T-piece 5L oxygen saturating at 98-99%. On glucerna 1.2 at 50cc/hr via GT running well, patent, no residuals noted and tolerating well. With left FA 18g and right Hand 22v g iv liens patent, intact and asymptomatic. With foely catheter to urine bag draining well below bladder. Elevated extremities using pillows. HOB elevated. needs were attended. call light within reach. Bed rails are locked and wheels are locked. Continue plan of care
[2020-05-18] MEDS ORDERED: Vancomycin 1 GM in D5W 275 ML IVPB SCH (20:00)
[2020-05-18] MEDS ORDERED: NS 500ML ONE (20:55)
[2020-05-18] MEDS ORDERED: Tubing IV Secondary IV ONE (20:55)
[2020-05-18] MEDS ORDERED: NS Irrig 1000ml ONE (20:55)
[2020-05-18] MEDS ORDERED: NS 275ml ONE (20:55)
[2020-05-18] MEDS: Meropenem 500 MG in NS 55 ML IVPB SCH (21:17)
--- NOTE | 2020-05-18 22:28 | Cardiology Progress Note ---
Subjective DATE OF SERVICE: May 18, 2020 Converted to sinus rhythm early this morning. BP parameters stable; no pressors needed On-going trach care 2D Echo : EjFxn 35% with mild regurg Objective Last 24 Hour Vital Signs Date Time Temp Pulse Resp B/P (MAP) Pulse Ox O2 Delivery O2 Flow Rate FiO2 05/18/20 20:29 86 152/70 05/18/20 20:00 86 05/18/20 20:00 97.7 86 28 152/70 (97) 95 05/18/20 20:00 T-piece 5.0 05/18/20 19:01 98 Cool Aerosol 5.0 28 05/18/20 17:00 81 23 146/57 (86) 97 05/18/20 16:00 98.8 84 28 147/56 (86) 95 05/18/20 16:00 80 05/18/20 16:00 T-piece 5.0 05/18/20 15:30 84 28 95 05/18/20 15:00 85 28 149/56 (87) 95 05/18/20 14:30 85 27 97 05/18/20 14:00 76 24 135/52 (79) 99 05/18/20 13:30 76 23 99 05/18/20 13:00 77 24 139/53 (81) 98 05/18/20 12:46 96 Cool Aerosol 5.0 28 05/18/20 12:30 80 27 97 05/18/20 12:00 98.5 84 25 126/57 (80) 95 05/18/20 12:00 T-piece 5.0 05/18/20 12:00 81 05/18/20 11:45 80 28 160/66 (97) 98 05/18/20 11:30 80 29 169/62 (97) 98 05/18/20 11:15 80 30 166/67 (100) 99 05/18/20 11:00 78 28 170/65 (100) 99 05/18/20 10:51 77 27 158/67 (97) 98 05/18/20 10:30 76 28 99 05/18/20 10:00 77 28 157/66 (96) 98 05/18/20 09:31 75 152/86 05/18/20 09:30 77 23 152/69 (96) 97 05/18/20 09:00 78 25 150/63 (92) 97 05/18/20 08:30 79 27 160/63 (95) 98 05/18/20 08:00 T-piece 5.0 05/18/20 08:00 74 05/18/20 08:00 77 24 163/66 (98) 97 05/18/20 07:38 100 Cool Aerosol 5.0 28 05/18/20 07:30 75 26 140/57 (84) 99 05/18/20 07:00 98.8 72 24 147/53 (84) 100 05/18/20 06:30 74 25 154/58 (90) 99 05/18/20 06:00 72 24 149/57 (87) 97 05/18/20 05:30 71 24 145/59 (87) 96 05/18/20 05:00 73 23 146/59 (88) 99 05/18/20 04:30 114 26 138/107 (117) 96 05/18/20 04:00 112 05/18/20 04:00 T-piece 5.0 05/18/20 04:00 98.2 106 24 117/68 (84) 98 05/18/20 03:30 100 24 120/59 (79) 96 05/18/20 03:00 111 24 118/71 (87) 97 05/18/20 02:30 115 24 140/85 (103) 95 05/18/20 02:00 104 24 145/73 (97) 96 05/18/20 01:30 110 26 121/67 (85) 96 05/18/20 01:00 117 28 143/85 (104) 97 05/18/20 00:56 95 Cool Aerosol 5.0 28 05/18/20 00:30 106 28 160/95 (116) 97 05/18/20 00:05 110 05/18/20 00:00 T-piece 5.0 05/18/20 00:00 98.4 100 25 124/54 (77) 97 05/18/20 00:00 100 25 124/54 (77) 97 05/17/20 23:30 99 24 120/77 (91) 98 05/17/20 23:00 99 25 134/62 (86) 96 05/17/20 22:30 98 25 141/91 (108) 97 ROS: unchanged from my eval 05/15/20 HEENT: Thin Trach secretions RHYTHM: Afib LUNGS: bilateral rhonchi CARDIAC: normal S1 and S2, irregularly irregular, rapid rate ABDOMEN: normal bowel sounds, non tender, G-Tube intact EXTREMITIES: No edema Laboratory Tests Test 05/18/20 04:15 05/18/20 18:50 05/18/20 20:17 White Blood Count 20.9 K/UL (4.8-10.8) H Red Blood Count 3.61 M/UL (4.20-5.40) L Hemoglobin 9.0 G/DL (12.0-16.0) L Hematocrit 29.1 % (37.0-47.0) L Mean Corpuscular Volume 81 FL (80-99) Mean Corpuscular Hemoglobin 24.8 PG (27.0-31.0) L Mean Corpuscular Hemoglobin Concent 30.8 G/DL (32.0-36.0) L Red Cell Distribution Width 16.4 % (11.6-14.8) H Platelet Count 427 K/UL (150-450) Mean Platelet Volume 8.4 FL (6.5-10.1) Neutrophils (%) (Auto) % (45.0-75.0) Lymphocytes (%) (Auto) % (20.0-45.0) Monocytes (%) (Auto) % (1.0-10.0) Eosinophils (%) (Auto) % (0.0-3.0) Basophils (%) (Auto) % (0.0-2.0) Differential Total Cells Counted 100 Neutrophils % (Manual) 71 % (45-75) Lymphocytes % (Manual) 13 % (20-45) L Monocytes % (Manual) 11 % (1-10) H Eosinophils % (Manual) 4 % (0-3) H Basophils % (Manual) 1 % (0-2) Band Neutrophils 0 % (0-8) Platelet Estimate Adequate Platelet Morphology Normal Hypochromasia 1+ Anisocytosis 1+ Microcytosis Rare Sodium Level 142 MMOL/L (136-145) Potassium Level 3.7 MMOL/L (3.5-5.1) Chloride Level 109 MMOL/L (98-107) H Carbon Dioxide Level 26 MMOL/L (21-32) Anion Gap 7 mmol/L (5-15) Blood Urea Nitrogen 24 mg/dL (7-18) H Creatinine 0.7 MG/DL (0.55-1.30) Estimat Glomerular Filtration Rate > 60 mL/min (>60) Glucose Level 191 MG/DL (74-106) H Calcium Level 8.3 MG/DL (8.5-10.1) L Total Bilirubin 0.3 MG/DL (0.2-1.0) Aspartate Amino Transf (AST/SGOT) 13 U/L (15-37) L Alanine Aminotransferase (ALT/SGPT) 21 U/L (12-78) Alkaline Phosphatase 108 U/L (46-116) Troponin I 0.153 ng/mL (0.000-0.056) Pro-B-Type Natriuretic Peptide 8586 pg/mL (0-125) H Total Protein 6.0 G/DL (6.4-8.2) L Albumin 1.9 G/DL (3.4-5.0) L Globulin 4.1 g/dL Albumin/Globulin Ratio 0.5 (1.0-2.7) L Vancomycin Level Trough 7.6 ug/mL (5.0-12.0) POC Whole Blood Glucose 182 MG/DL (74-106) H Microbiology Date/Time Source Procedure Growth Status 05/17/20 05:20 Sputum Induced Gram Stain - Final Resulted 05/17/20 05:20 Sputum Induced Sputum Culture Pending Resulted CHEST XRAY: 05/18 - improved interstitial edema and airspace dis; small pleural eff'n Assessment/Plan Assessment/Plan Critical but improved Sepsis with shock recovering Healthcare associated PNA NSTE myocardial infarction Ischemic cardiomyopathy Ac/chr systolic and diastolic CHF Paroxysmal AFib - now converted to NSR Lactic acidosis resolved Hypovolemia/dehydration corrected Severe protein calorie malnutrition Resp rx IVF discont'd; diuresis ordered DC IV anti-arrhythmic Continue beta pietro Full anti-coagulation maint dose oral digoxin John Heard MD May 18, 2020 22:28
[2020-05-19] VITALS: BP 149/77
--- NOTE | 2020-05-19 01:30 | NUR ---
NURSE NOTES: Pt was given partial bed bath. Wound treatment done. Pt tolerated well.
[2020-05-19 04:00] VITALS: BP_SYST 143; BP_SYST 160; BP_DIAS 78; BP_DIAS 81
[2020-05-19] MEDS: Meropenem 500 MG in NS 55 ML IVPB SCH ×3 (05:08→21:19)
[2020-05-19] MEDS: NovoLOG Insulin Flexpen SUBQ SCH ×4 (05:10→21:22)
[2020-05-19 05:22] LABS: MEAN CORPUSCULAR VOLUME 80 FL (80-99); PLATELET COUNT 370 K/UL (150-450); RED CELL DISTRIBUTION WIDTH 16.3 % (11.6-14.8); WHITE BLOOD COUNT 19.1 K/UL (4.8-10.8)
[2020-05-19 05:30] LABS: ANION GAP 9 mmol/L (5-15); BLOOD UREA NITROGEN 17 mg/dL (7-18); CALCIUM 8.2 MG/DL (8.5-10.1); CARBON DIOXIDE 26 MMOL/L (21-32); CHLORIDE 102 MMOL/L (98-107); CREATININE 0.6 MG/DL (0.55-1.30); POTASSIUM 3.9 MMOL/L (3.5-5.1); SODIUM 137 MMOL/L (136-145)
--- NOTE | 2020-05-19 07:05 | NUR ---
NURSE HAND-OFF REPORT: Important Events on Shift: none Patient Status: stable Diet:Glucerna at 30cc/hr Pending Orders: n Pending Results/Labs: n Pending MD notification:n Latest Vital Signs: Temperature 98.2 , Pulse 88 , B/P 143 /78 , Respiratory Rate 28 , O2 SAT 95 , T-piece, O2 Flow Rate 5.0 . Vital Sign Comment: EKG Rhythm: Sinus Rhythm Rhythm change?: N MD Notified?: Kp BOONE. TODD MILLIGAN Response: Latest Hernandez Fall Score: 55 Fall Risk: High Risk Safety Measures: Call light Within Reach, Bed Alarm Zone 2, Side Rails Side Rails x3, Bed position Low and Locked. Fall Precautions: Report given to Blake Brizuela RN.
--- NOTE | 2020-05-19 07:28 | NUR ---
RD ASSESSMENT & RECOMMENDATIONS SEE CARE ACTIVITY FOR COMPLETE ASSESSMENT DAILY ESTIMATED NEEDS: Needs based on Wound, DM/ 57kg abw 25-30 kcals/kg 5329-4675 total kcals 1.25-1.8 g protein/kg 71-103 g total protein 25-30 mL/kg 1031-2118 total fluid mLs NUTRITION DIAGNOSIS: * Increased kcal/prot needs R/T wound healing as evidenced by pt admiteed w/ unstageable sacral wound, refer to full wound care eval. (CURRENT TF:Glucerna 1.2 @ 50ml/hr x 24 hrs) ENTERAL NUTRITION RECOMMENDATIONS: Glucerna 1.2 @ 50ml/hr x 24 hrs + Prosource 1pkt daily to provide 1200ml, 1440kcal, 72g +11g prot, 966ml free water * Add Prosource 1pkt daily to current TF order to better meet increased protein needs (additional 11g protein) * HOB over 30 degrees/ water flush per MD ADDITIONAL RECOMMENDATIONS: * Per SNF: Ht=63" FO=554ncf (Apr 2020) -> calibrated bedscale wt * Wound healing: unstageable sacral wound ->TF @ goal will provide 100% RDI Add Vit C 500mg QD + ZnSO4 220mg QD x 10 days + Endy BID * Monitor lytes, replete as needed * Monitor BGs, rec long acting insulin for improved glycemic control
--- NOTE | 2020-05-19 07:32 | NUR ---
NURSE NOTES: Received report from KARLENE Herrera. Patient is resting in bed, in stable condition. No s/sx of SOB, breathing is even and unlabored, pt on T-piece with 5LPM tolerating. Pt is non-verbal, bed is in lowest position, brakes engaged. Call light is kept within easy reach. Will continue to monitor patient.
[2020-05-19] MEDS: Vancomycin 750mg/NS 275ml IVPB SCH ×4 (07:49→08:36)
--- NOTE | 2020-05-19 07:54 | NUR ---
NURSE NOTES: Scheduled Vancomycin IV contaminated. Called pharmacy, spoke with clinical pharmacy manager and requested for new Vancomycin IV. energy conservation technician to inform pharmacist of contaminated Vancomycin and waste. Noted.
[2020-05-19 08:00] VITALS: BP 156/82
--- NOTE | 2020-05-19 08:02 | Critical Care Progress Note ---
Assessment/Plan Assessment/Plan IMPRESSION: 1. Shock, with possible sepsis. 2. Healthcare-acquired pneumonia, tracheostomy. 3. Atrial fibrillation with RVR 4. NSTEMI 5. Cerebrovascular disease 6. Dysphagia with G-tube. 7. Hypovolemia and dehydration. 8. Lactic acidosis. 9. leukocytosis 10. severe protein calorie malnutrition PLAN transition to PO Cardizem monitor rate; now in NSR iv antibiotics watch wbc feeds vent monitor labs transition to snf when cleared impression, plan, and exam edited and reviewed in detail care discussed with communications editor - Subjective Interval Events: moved to michelle ID noted antibiotics adjusted ROS Limited/Unobtainable: Yes Condition: unchanged EKG Rhythm: Sinus Rhythm Residuals: minimal Tube Feeding Tolerated: yes I&O: Intake and Output 05/18/20 05/19/20 19:00 07:00 Intake Total 695.0 ml 985.000 ml Output Total 550 ml 2350 ml Balance 145.0 ml -1365.000 ml IV Total 110.0 ml 385.000 ml Tube Feeding 550 ml 600 ml Other 35 ml Output Urine Total 550 ml 2350 ml # Bowel Movements 4 1 Critical Care - Objective Last 24 Hour Vital Signs Date Time Temp Pulse Resp B/P (MAP) Pulse Ox O2 Delivery O2 Flow Rate FiO2 05/19/20 04:00 88 05/19/20 04:00 98.2 89 28 143/78 (99) 95 05/19/20 04:00 T-piece 5.0 05/19/20 00:33 97 Cool Aerosol 5.0 28 05/19/20 00:00 86 05/19/20 00:00 T-piece 5.0 05/19/20 00:00 98.4 85 28 149/77 (101) 95 05/18/20 20:29 86 152/70 05/18/20 20:00 86 05/18/20 20:00 97.7 86 28 152/70 (97) 95 05/18/20 20:00 T-piece 5.0 05/18/20 19:01 98 Cool Aerosol 5.0 28 05/18/20 17:00 81 23 146/57 (86) 97 05/18/20 16:00 98.8 84 28 147/56 (86) 95 05/18/20 16:00 80 05/18/20 16:00 T-piece 5.0 05/18/20 15:30 84 28 95 05/18/20 15:00 85 28 149/56 (87) 95 05/18/20 14:30 85 27 97 05/18/20 14:00 76 24 135/52 (79) 99 05/18/20 13:30 76 23 99 05/18/20 13:00 77 24 139/53 (81) 98 05/18/20 12:46 96 Cool Aerosol 5.0 28 05/18/20 12:30 80 27 97 05/18/20 12:00 98.5 84 25 126/57 (80) 95 05/18/20 12:00 T-piece 5.0 05/18/20 12:00 81 05/18/20 11:45 80 28 160/66 (97) 98 05/18/20 11:30 80 29 169/62 (97) 98 05/18/20 11:15 80 30 166/67 (100) 99 05/18/20 11:00 78 28 170/65 (100) 99 05/18/20 10:51 77 27 158/67 (97) 98 05/18/20 10:30 76 28 99 05/18/20 10:00 77 28 157/66 (96) 98 05/18/20 09:31 75 152/86 05/18/20 09:30 77 23 152/69 (96) 97 05/18/20 09:00 78 25 150/63 (92) 97 05/18/20 08:30 79 27 160/63 (95) 98 Labs: Labs Test 05/16/20 21:24 05/17/20 05:17 05/17/20 12:44 05/17/20 17:39 POC Whole Blood Glucose 226 MG/DL (74-106) 241 MG/DL (74-106) White Blood Count 17.7 K/UL (4.8-10.8) Red Blood Count 3.31 M/UL (4.20-5.40) Hemoglobin 8.2 G/DL (12.0-16.0) Hematocrit 26.8 % (37.0-47.0) Mean Corpuscular Volume 81 FL (80-99) Mean Corpuscular Hemoglobin 24.8 PG (27.0-31.0) Mean Corpuscular Hemoglobin Concent 30.7 G/DL (32.0-36.0) Red Cell Distribution Width 15.9 % (11.6-14.8) Platelet Count 422 K/UL (150-450) Mean Platelet Volume 8.9 FL (6.5-10.1) Neutrophils (%) (Auto) 80.2 % (45.0-75.0) Lymphocytes (%) (Auto) 10.2 % (20.0-45.0) Monocytes (%) (Auto) 6.9 % (1.0-10.0) Eosinophils (%) (Auto) 2.1 % (0.0-3.0) Basophils (%) (Auto) 0.7 % (0.0-2.0) Sodium Level 144 MMOL/L (136-145) Potassium Level 3.8 MMOL/L (3.5-5.1) Chloride Level 108 MMOL/L (98-107) Carbon Dioxide Level 25 MMOL/L (21-32) Anion Gap 11 mmol/L (5-15) Blood Urea Nitrogen 33 mg/dL (7-18) Creatinine 0.8 MG/DL (0.55-1.30) Estimat Glomerular Filtration Rate > 60 mL/min (>60) Glucose Level 238 MG/DL (74-106) Calcium Level 8.0 MG/DL (8.5-10.1) Magnesium Level 1.9 MG/DL (1.8-2.4) Total Bilirubin 0.3 MG/DL (0.2-1.0) Aspartate Amino Transf (AST/SGOT) 14 U/L (15-37) Alanine Aminotransferase (ALT/SGPT) 17 U/L (12-78) Alkaline Phosphatase 130 U/L (46-116) Troponin I 0.134 ng/mL (0.000-0.056) Total Protein 5.9 G/DL (6.4-8.2) Albumin 1.9 G/DL (3.4-5.0) Globulin 4.0 g/dL Albumin/Globulin Ratio 0.5 (1.0-2.7) Test 05/18/20 04:15 05/18/20 18:50 05/18/20 20:17 05/19/20 04:15 White Blood Count 20.9 K/UL (4.8-10.8) 19.1 K/UL (4.8-10.8) Red Blood Count 3.61 M/UL (4.20-5.40) 3.50 M/UL (4.20-5.40) Hemoglobin 9.0 G/DL (12.0-16.0) 9.0 G/DL (12.0-16.0) Hematocrit 29.1 % (37.0-47.0) 28.0 % (37.0-47.0) Mean Corpuscular Volume 81 FL (80-99) 80 FL (80-99) Mean Corpuscular Hemoglobin 24.8 PG (27.0-31.0) 25.6 PG (27.0-31.0) Mean Corpuscular Hemoglobin Concent 30.8 G/DL (32.0-36.0) 32.0 G/DL (32.0-36.0) Red Cell Distribution Width 16.4 % (11.6-14.8) 16.3 % (11.6-14.8) Platelet Count 427 K/UL (150-450) 370 K/UL (150-450) Mean Platelet Volume 8.4 FL (6.5-10.1) 7.8 FL (6.5-10.1) Neutrophils (%) (Auto) % (45.0-75.0) % (45.0-75.0) Lymphocytes (%) (Auto) % (20.0-45.0) % (20.0-45.0) Monocytes (%) (Auto) % (1.0-10.0) % (1.0-10.0) Eosinophils (%) (Auto) % (0.0-3.0) % (0.0-3.0) Basophils (%) (Auto) % (0.0-2.0) % (0.0-2.0) Differential Total Cells Counted 100 Neutrophils % (Manual) 71 % (45-75) Lymphocytes % (Manual) 13 % (20-45) Monocytes % (Manual) 11 % (1-10) Eosinophils % (Manual) 4 % (0-3) Basophils % (Manual) 1 % (0-2) Band Neutrophils 0 % (0-8) Platelet Estimate Adequate Platelet Morphology Normal Hypochromasia 1+ Anisocytosis 1+ Microcytosis Rare Sodium Level 142 MMOL/L (136-145) 137 MMOL/L (136-145) Potassium Level 3.7 MMOL/L (3.5-5.1) 3.9 MMOL/L (3.5-5.1) Chloride Level 109 MMOL/L (98-107) 102 MMOL/L (98-107) Carbon Dioxide Level 26 MMOL/L (21-32) 26 MMOL/L (21-32) Anion Gap 7 mmol/L (5-15) 9 mmol/L (5-15) Blood Urea Nitrogen 24 mg/dL (7-18) 17 mg/dL (7-18) Creatinine 0.7 MG/DL (0.55-1.30) 0.6 MG/DL (0.55-1.30) Estimat Glomerular Filtration Rate > 60 mL/min (>60) > 60 mL/min (>60) Glucose Level 191 MG/DL (74-106) 213 MG/DL (74-106) Calcium Level 8.3 MG/DL (8.5-10.1) 8.2 MG/DL (8.5-10.1) Total Bilirubin 0.3 MG/DL (0.2-1.0) Aspartate Amino Transf (AST/SGOT) 13 U/L (15-37) Alanine Aminotransferase (ALT/SGPT) 21 U/L (12-78) Alkaline Phosphatase 108 U/L (46-116) Troponin I 0.153 ng/mL (0.000-0.056) Pro-B-Type Natriuretic Peptide 8586 pg/mL (0-125) Total Protein 6.0 G/DL (6.4-8.2) Albumin 1.9 G/DL (3.4-5.0) Globulin 4.1 g/dL Albumin/Globulin Ratio 0.5 (1.0-2.7) Vancomycin Level Trough 7.6 ug/mL (5.0-12.0) POC Whole Blood Glucose 182 MG/DL (74-106) Magnesium Level 1.8 MG/DL (1.8-2.4) Test 05/19/20 05:07 Objective: WDWN NAD reduced breath sounds bilaterally without rhonchi or wheeze S1S2 RRR without MRG NABS nontender no HSM no CCE nonfocal poor LOC Micro: Microbiology Date/Time Source Procedure Growth Status 05/17/20 05:20 Sputum Induced Gram Stain - Final Resulted 05/17/20 05:20 Sputum Induced Sputum Culture Pending Resulted Accucheck: 206 Fernie Martinez MD May 19, 2020 08:02
--- NOTE | 2020-05-19 08:31 | General Progress Note ---
Assessment/Plan Problem List: (1) HCAP (healthcare-associated pneumonia) ICD Codes: J18.9 - Pneumonia, unspecified organism SNOMED: 952229863, 805724823 (2) Encounter for generalized patient complaints ICD Codes: Z00.8 - Encounter for other general examination SNOMED: 722434242 (3) Sepsis ICD Codes: A41.9 - Sepsis, unspecified organism SNOMED: 44460070, 646527932 (4) Atrial fibrillation with RVR ICD Codes: I48.91 - Unspecified atrial fibrillation SNOMED: 592136746231436 Status: stable, not improved Assessment/Plan: oral metoprolol/dig for rate control eliquis for stroke prophylaxis monitor for bleeding tube feeds resp care stress ulcer prophylaxis monitor labs lytes monitor cxr trending wbc Subjective ROS Limited/Unobtainable: No Constitutional: Reports: malaise, weakness HEENT: Reports: no symptoms Cardiovascular: Reports: no symptoms Respiratory: Reports: cough, shortness of breath, sputum Gastrointestinal/Abdominal: Reports: difficulty swallowing Genitourinary: Reports: no symptoms Neurologic/Psychiatric: Reports: pre-existing deficit Endocrine: Reports: no symptoms Hematologic/Lymphatic: Reports: anemia Allergies: Coded Allergies: No Known Allergies (Unverified , 05/15/20) All Systems: reviewed and negative except above Subjective no events. HR controlled. on trach collar. no fevers. + sputum cultures. remains on iv abx. tolerating tube feeds cxr improving but wbc remains elevated Objective Last 24 Hour Vital Signs Date Time Temp Pulse Resp B/P (MAP) Pulse Ox O2 Delivery O2 Flow Rate FiO2 05/19/20 04:00 88 05/19/20 04:00 98.2 89 28 143/78 (99) 95 05/19/20 04:00 T-piece 5.0 05/19/20 00:33 97 Cool Aerosol 5.0 28 05/19/20 00:00 86 05/19/20 00:00 T-piece 5.0 05/19/20 00:00 98.4 85 28 149/77 (101) 95 05/18/20 20:29 86 152/70 05/18/20 20:00 86 05/18/20 20:00 97.7 86 28 152/70 (97) 95 05/18/20 20:00 T-piece 5.0 05/18/20 19:01 98 Cool Aerosol 5.0 28 05/18/20 17:00 81 23 146/57 (86) 97 05/18/20 16:00 98.8 84 28 147/56 (86) 95 05/18/20 16:00 80 05/18/20 16:00 T-piece 5.0 05/18/20 15:30 84 28 95 05/18/20 15:00 85 28 149/56 (87) 95 05/18/20 14:30 85 27 97 05/18/20 14:00 76 24 135/52 (79) 99 05/18/20 13:30 76 23 99 05/18/20 13:00 77 24 139/53 (81) 98 05/18/20 12:46 96 Cool Aerosol 5.0 28 05/18/20 12:30 80 27 97 05/18/20 12:00 98.5 84 25 126/57 (80) 95 05/18/20 12:00 T-piece 5.0 05/18/20 12:00 81 05/18/20 11:45 80 28 160/66 (97) 98 05/18/20 11:30 80 29 169/62 (97) 98 05/18/20 11:15 80 30 166/67 (100) 99 05/18/20 11:00 78 28 170/65 (100) 99 05/18/20 10:51 77 27 158/67 (97) 98 05/18/20 10:30 76 28 99 05/18/20 10:00 77 28 157/66 (96) 98 05/18/20 09:31 75 152/86 05/18/20 09:30 77 23 152/69 (96) 97 05/18/20 09:00 78 25 150/63 (92) 97 05/18/20 08:30 79 27 160/63 (95) 98 Intake and Output 05/18/20 05/19/20 19:00 07:00 Intake Total 695.0 ml 985.000 ml Output Total 550 ml 2350 ml Balance 145.0 ml -1365.000 ml IV Total 110.0 ml 385.000 ml Tube Feeding 550 ml 600 ml Other 35 ml Output Urine Total 550 ml 2350 ml # Bowel Movements 4 1 Laboratory Tests 05/18/20 18:50: Vancomycin Level Trough 7.6 05/18/20 20:17: POC Whole Blood Glucose 182H 05/19/20 04:15: White Blood Count 19.1H, Red Blood Count 3.50L, Hemoglobin 9.0L, Hematocrit 28.0L, Mean Corpuscular Volume 80, Mean Corpuscular Hemoglobin 25.6L, Mean Corpuscular Hemoglobin Concent 32.0, Red Cell Distribution Width 16.3H, Platelet Count 370, Mean Platelet Volume 7.8, Neutrophils (%) (Auto) , Lymphocytes (%) (Auto) , Monocytes (%) (Auto) , Eosinophils (%) (Auto) , Basophils (%) (Auto) , Neutrophils % (Manual) [Pending], Lymphocytes % (Manual) [Pending], Platelet Estimate [Pending], Platelet Morphology [Pending], Sodium Level 137, Potassium Level 3.9, Chloride Level 102, Carbon Dioxide Level 26, Anion Gap 9, Blood Urea Nitrogen 17, Creatinine 0.6, Estimat Glomerular Filtration Rate > 60, Glucose Level 213H, Calcium Level 8.2L, Magnesium Level 1.8, Digoxin Level 0.9 05/19/20 05:07: POC Whole Blood Glucose [Pending] Height (Feet): 5 Height (Inches): 4.00 Weight (Pounds): 191 Objective General Appearance: WD/WN, lethargic, confused EENT: PERRL/EOMI, normal ENT inspection Neck: non-tender, normal alignment, supple Cardiovascular: normal peripheral pulses Respiratory/Chest: lungs clear, normal breath sounds, no respiratory distress, no accessory muscle use Abdomen: normal bowel sounds, non tender, soft, no organomegaly Edema: no edema noted Arm (L), no edema noted Arm (R) Neurologic: disoriented, unresponsive, aphasia Skin: normal pigmentation Lymphatic: normal anterior cervical (L), normal anterior cervical (R) Sanjay Solano MD May 19, 2020 08:31
[2020-05-19] MEDS: Eliquis 5mg tablet GT SCH ×2 (08:36→17:11)
[2020-05-19] MEDS: Digoxin 0.125mg tab GT SCH (08:37)
[2020-05-19] MEDS: Metoprolol Tartrate 50mg tab GT SCH ×2 (08:37→21:19)
--- NOTE | 2020-05-19 09:47 | Infectious Diseases Prog Note ---
Assessment/Plan Assessment/Plan A 1. pneumonia with gram negatives COVID19 negative 2. Chronic respiratory failure 3. leucocytosis increased 4. diabetes mellitus 5. hypertension 6. dementia 7. 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 Discontinue iv vancomycin 2. Continue meropenem 3. will follow up cultures Subjective ROS Limited/Unobtainable: Yes Constitutional: Denies: fever Allergies: Coded Allergies: No Known Allergies (Unverified , 05/15/20) Objective Last 24 Hour Vital Signs Date Time Temp Pulse Resp B/P (MAP) Pulse Ox O2 Delivery O2 Flow Rate FiO2 05/19/20 08:37 93 05/19/20 08:37 93 156/82 05/19/20 08:00 T-piece 5.0 05/19/20 08:00 98.2 90 22 156/82 (106) 98 05/19/20 04:00 88 05/19/20 04:00 98.2 89 28 143/78 (99) 95 05/19/20 04:00 T-piece 5.0 05/19/20 00:33 97 Cool Aerosol 5.0 28 05/19/20 00:00 86 05/19/20 00:00 T-piece 5.0 05/19/20 00:00 98.4 85 28 149/77 (101) 95 05/18/20 20:29 86 152/70 05/18/20 20:00 86 05/18/20 20:00 97.7 86 28 152/70 (97) 95 05/18/20 20:00 T-piece 5.0 05/18/20 19:01 98 Cool Aerosol 5.0 28 05/18/20 17:00 81 23 146/57 (86) 97 05/18/20 16:00 98.8 84 28 147/56 (86) 95 05/18/20 16:00 80 05/18/20 16:00 T-piece 5.0 05/18/20 15:30 84 28 95 05/18/20 15:00 85 28 149/56 (87) 95 05/18/20 14:30 85 27 97 05/18/20 14:00 76 24 135/52 (79) 99 05/18/20 13:30 76 23 99 05/18/20 13:00 77 24 139/53 (81) 98 05/18/20 12:46 96 Cool Aerosol 5.0 28 05/18/20 12:30 80 27 97 05/18/20 12:00 98.5 84 25 126/57 (80) 95 05/18/20 12:00 T-piece 5.0 05/18/20 12:00 81 05/18/20 11:45 80 28 160/66 (97) 98 05/18/20 11:30 80 29 169/62 (97) 98 05/18/20 11:15 80 30 166/67 (100) 99 05/18/20 11:00 78 28 170/65 (100) 99 05/18/20 10:51 77 27 158/67 (97) 98 05/18/20 10:30 76 28 99 05/18/20 10:00 77 28 157/66 (96) 98 Height (Feet): 5 Height (Inches): 4.00 Weight (Pounds): 191 HEENT: status post trach Respiratory/Chest: lungs clear, other - on T bar Cardiovascular: normal rate Abdomen: soft, non tender Extremities: no edema Neurologic/Psychiatric: other - opens eyes Microbiology Date/Time Source Procedure Growth Status 05/17/20 05:20 Sputum Induced Gram Stain - Final Resulted 05/17/20 05:20 Sputum Culture - Preliminary Gram Negative Bacillus 1 Gram Negative Bacillus 2 Usual Respiratory Graciela Resulted Laboratory Tests Test 05/18/20 18:50 05/18/20 20:17 05/19/20 04:15 05/19/20 05:07 Vancomycin Level Trough 7.6 ug/mL (5.0-12.0) POC Whole Blood Glucose 182 MG/DL (74-106) H Pending White Blood Count 19.1 K/UL (4.8-10.8) H Red Blood Count 3.50 M/UL (4.20-5.40) L Hemoglobin 9.0 G/DL (12.0-16.0) L Hematocrit 28.0 % (37.0-47.0) L Mean Corpuscular Volume 80 FL (80-99) Mean Corpuscular Hemoglobin 25.6 PG (27.0-31.0) L Mean Corpuscular Hemoglobin Concent 32.0 G/DL (32.0-36.0) Red Cell Distribution Width 16.3 % (11.6-14.8) H Platelet Count 370 K/UL (150-450) Mean Platelet Volume 7.8 FL (6.5-10.1) Neutrophils (%) (Auto) % (45.0-75.0) Lymphocytes (%) (Auto) % (20.0-45.0) Monocytes (%) (Auto) % (1.0-10.0) Eosinophils (%) (Auto) % (0.0-3.0) Basophils (%) (Auto) % (0.0-2.0) Neutrophils % (Manual) Pending Lymphocytes % (Manual) Pending Platelet Estimate Pending Platelet Morphology Pending Sodium Level 137 MMOL/L (136-145) Potassium Level 3.9 MMOL/L (3.5-5.1) Chloride Level 102 MMOL/L (98-107) Carbon Dioxide Level 26 MMOL/L (21-32) Anion Gap 9 mmol/L (5-15) Blood Urea Nitrogen 17 mg/dL (7-18) Creatinine 0.6 MG/DL (0.55-1.30) Estimat Glomerular Filtration Rate > 60 mL/min (>60) Glucose Level 213 MG/DL (74-106) H Calcium Level 8.2 MG/DL (8.5-10.1) L Magnesium Level 1.8 MG/DL (1.8-2.4) Digoxin Level 0.9 NG/ML (0.9-2.0) Current Medications Medications (Trade) Dose Ordered Sig/Cayden Route PRN Reason Start Time Stop Time Status Last Admin Dose Admin Apixaban (Eliquis) 5 mg BID GT 05/19/20 09:00 08/14/20 08:59 05/19/20 08:36 Dextrose (Dextrose 50%) 25 ml Q30M PRN IV Hypoglycemia 05/18/20 19:00 08/14/20 01:29 Dextrose (Dextrose 50%) 50 ml Q30M PRN IV Hypoglycemia 05/18/20 19:00 08/14/20 01:29 Digoxin (Lanoxin) 0.125 mg DAILY GT 05/19/20 09:00 08/17/20 08:59 05/19/20 08:37 Insulin Aspart (NovoLOG) BEFORE MEALS AND HS SUBQ 05/18/20 21:00 08/14/20 06:29 05/19/20 05:10 Meropenem 500 mg/ Sodium Chloride 55 ml @ 110 mls/hr EVERY 8 HOURS IVPB 05/18/20 22:00 05/23/20 13:59 05/19/20 05:08 Metoprolol Tartrate (Lopressor) 50 mg Q12HR GT 05/18/20 21:00 08/14/20 01:29 05/19/20 08:37 Vancomycin HCl (Vanco pharmacy to dose) 1 ea DAILY PRN MISC Per rx protocol 05/19/20 09:00 06/15/20 01:29 Vancomycin HCl 750 mg/Sodium Chloride 275 ml @ 183.333 mls/hr Q12HR@08,1999 IVPB 05/19/20 08:00 05/24/20 07:59 05/19/20 08:36 Colby Rock MD May 19, 2020 09:47
--- NOTE | 2020-05-19 10:54 | NUR ---
CASE MANAGEMENT: REVIEW SI: A-FIB w/RVR T 97.7 HR 86 RR 28 BP 152/70 SAT 95% T-PIECE FIO2 28 WBC 19.1 H/H 9.0/28.0 GLUCOSE 213 IS: LASIX 20MG ELIQUIS GT BID DIGOXIN GT QD VANCOMYCIN IV Q12HR MEROPENEM IV Q8HR NOVOLOG SUBQ AC+HR LOPRESSOR GT Q12HR STEP DOWN UNIT STATUS DCP: PATIENT IS FROM [facility]
--- NOTE | 2020-05-19 11:05 | NUR ---
*-* INSURANCE *-* UPDATED CLINICALS AND REVIEWS HAVE BEEN FAXED TO: [employer]EM[employer] @ FULL RISK # [phone] FAX#[phone]
[2020-05-19 12:00] VITALS: BP 157/83
[2020-05-19] MEDS ORDERED: Tubing IV Secondary IV ONE (13:49)
[2020-05-19 16:00] VITALS: BP 158/95
--- NOTE | 2020-05-19 16:16 | Surgery Progress Note ---
Surgery Progress Note Subjective Additional Comments leukocytosis i labs noted exam stable comfortable no n/v/f/c Objective Last 24 Hour Vital Signs Date Time Temp Pulse Resp B/P (MAP) Pulse Ox O2 Delivery O2 Flow Rate FiO2 05/19/20 13:30 98 Cool Aerosol 5.0 28 05/19/20 12:00 98.2 90 21 157/83 (107) 96 05/19/20 12:00 T-piece 5.0 05/19/20 11:47 87 05/19/20 08:37 93 05/19/20 08:37 93 156/82 05/19/20 08:00 92 05/19/20 08:00 T-piece 5.0 05/19/20 08:00 98.2 90 22 156/82 (106) 98 05/19/20 06:58 97 Cool Aerosol 5.0 28 05/19/20 04:00 88 05/19/20 04:00 98.2 89 28 143/78 (99) 95 05/19/20 04:00 T-piece 5.0 05/19/20 00:33 97 Cool Aerosol 5.0 28 05/19/20 00:00 86 05/19/20 00:00 T-piece 5.0 05/19/20 00:00 98.4 85 28 149/77 (101) 95 05/18/20 20:29 86 152/70 05/18/20 20:00 86 05/18/20 20:00 97.7 86 28 152/70 (97) 95 05/18/20 20:00 T-piece 5.0 05/18/20 19:01 98 Cool Aerosol 5.0 28 05/18/20 17:00 81 23 146/57 (86) 97 I&O Intake and Output 05/18/20 05/19/20 19:00 07:00 Intake Total 695.0 ml 985.000 ml Output Total 550 ml 2350 ml Balance 145.0 ml -1365.000 ml IV Total 110.0 ml 385.000 ml Tube Feeding 550 ml 600 ml Other 35 ml Output Urine Total 550 ml 2350 ml # Bowel Movements 4 1 Dressing: saturated Wound: other Cardiovascular: RSR Respiratory: decreased breath sounds Abdomen: soft, non-tender, present bowel sounds Extremities: no tenderness, no cyanosis Laboratory Tests Test 05/18/20 18:50 05/18/20 20:17 05/19/20 04:15 05/19/20 05:07 Vancomycin Level Trough 7.6 ug/mL (5.0-12.0) POC Whole Blood Glucose 182 MG/DL (74-106) H Pending White Blood Count 19.1 K/UL (4.8-10.8) H Red Blood Count 3.50 M/UL (4.20-5.40) L Hemoglobin 9.0 G/DL (12.0-16.0) L Hematocrit 28.0 % (37.0-47.0) L Mean Corpuscular Volume 80 FL (80-99) Mean Corpuscular Hemoglobin 25.6 PG (27.0-31.0) L Mean Corpuscular Hemoglobin Concent 32.0 G/DL (32.0-36.0) Red Cell Distribution Width 16.3 % (11.6-14.8) H Platelet Count 370 K/UL (150-450) Mean Platelet Volume 7.8 FL (6.5-10.1) Neutrophils (%) (Auto) % (45.0-75.0) Lymphocytes (%) (Auto) % (20.0-45.0) Monocytes (%) (Auto) % (1.0-10.0) Eosinophils (%) (Auto) % (0.0-3.0) Basophils (%) (Auto) % (0.0-2.0) Differential Total Cells Counted 100 Neutrophils % (Manual) 72 % (45-75) Lymphocytes % (Manual) 16 % (20-45) L Monocytes % (Manual) 6 % (1-10) Eosinophils % (Manual) 3 % (0-3) Basophils % (Manual) 3 % (0-2) H Band Neutrophils 0 % (0-8) Platelet Estimate Adequate Platelet Morphology Normal Hypochromasia 1+ Anisocytosis 1+ Sodium Level 137 MMOL/L (136-145) Potassium Level 3.9 MMOL/L (3.5-5.1) Chloride Level 102 MMOL/L (98-107) Carbon Dioxide Level 26 MMOL/L (21-32) Anion Gap 9 mmol/L (5-15) Blood Urea Nitrogen 17 mg/dL (7-18) Creatinine 0.6 MG/DL (0.55-1.30) Estimat Glomerular Filtration Rate > 60 mL/min (>60) Glucose Level 213 MG/DL (74-106) H Calcium Level 8.2 MG/DL (8.5-10.1) L Magnesium Level 1.8 MG/DL (1.8-2.4) Digoxin Level 0.9 NG/ML (0.9-2.0) Test 05/19/20 11:52 05/19/20 16:10 POC Whole Blood Glucose 227 MG/DL (74-106) H 204 MG/DL (74-106) H Plan Problems: (1) HCAP (healthcare-associated pneumonia) (2) Encounter for generalized patient complaints (3) Sepsis Assessment & Plan: leukocytosis, anemia, lactic acidosis admitted to ICU on abx Pt presented on admission with generalized Edema,multiple Pressure Injuries and IAD. Unstageable Sacral Pressure Injury(L)11.4cm x (W)7.2cm. Base of wound is 80 % dry necrosis ,20% beefy red and moist,Edges are macerated.. Along immediate borders of wound is id dark and fluctuant with surrounding non-blanching erythema. No odor or exudate noted. DTPI noted to R Ischium. Base of wound is maroon and fluctuant (L)4cm x (W) 2.2cm. Incontinence Associated Dermatitis noted. Mons Pubis ,Perineum and clefts of buttocks are erythematous with scattered satellite lesions. Both heels are soft but blanchable. Both feet cool to touch toes on each feet are dusky . Scattered melasmas noted to upper and mid back. Skin assessed under tracheal collar and no evidence of skin breakdown noted. Tx.Plan: Cleanse Sacral wound with Saline. Apply Therahoney. Apply MOisture Barrier Periwound. Cover with Optifoam drsg Daily and prn. Apply Cavilon Skin Barrier to R ischium. Cover with Optifoam Drsg. Change every 3Days and PRN. Apply Moisture Barrier Paste to Perineal area , mid thighs and buttocks with each incontinence Care. Apply Cavilon Skin Barrier to Both heels and Malleoli. Cover each site with Optifoam drsgs. Change every 7 days PRN. Reposition at least every 2hours or as tolerated. Off-load Heels with PIllow. APM/DANIEL Mattress overlay. nutritional optimization wounds unlikely etiology of sepsis will monitor closely (4) Atrial fibrillation with RVR Adrian Gar May 19, 2020 16:16
--- NOTE | 2020-05-19 19:16 | NUR ---
NURSE HAND-OFF REPORT: Important Events on Shift: None. Patient Status: Stable Diet: Glucerna 1.2 50 ml/hr Pending Orders: None. Pending Results/Labs:None. Pending MD notification:None. Latest Vital Signs: Temperature 98.3 , Pulse 84 , B/P 158 /95 , Respiratory Rate 22 , O2 SAT 96 , T-piece, O2 Flow Rate 5.0 . Vital Sign Comment: Stable EKG Rhythm: SR,BBB Rhythm change?: N Notified?: N MELY. TODD MILLIGAN Response: Message left await call Latest Hernandez Fall Score: 55 Fall Risk: High Risk Safety Measures: Call light Within Reach, Bed Alarm Zone 2, Side Rails Side Rails x3, Bed position Low and Locked. Fall Precautions: Report given to KARLENE Serrano.
--- NOTE | 2020-05-19 19:20 | NUR ---
NURSE NOTES: Received pt and report from KARLENE Lozano. Observed pt resting in bed with both eyes open; no tracking. Pt is A/Ox0. gambling monitor is in placed; pt is SR w/BBB. IV site intact, asymptomatic, and patent. Pt is on G-tube feeding of Glucerna 1.2 @ 55cc/hr; no residual noted. Aspiration precaution noted; HOB at 30 degrees. Bed is in the lowest position and locked. Call light and bedside table is within reach. No signs/symptoms of resp distress or acute distress noted at this time. Will continue plan of care.
[2020-05-19 20:00] VITALS: BP 156/76
--- NOTE | 2020-05-19 22:06 | Cardiology Progress Note ---
Subjective DATE OF SERVICE: May 19, 2020 Converted to sinus rhythm yesterday, and maintaining sinus rhythm. BP parameters stable. On-going trach care 2D Echo : EjFxn 35% with mild regurg Objective Last 24 Hour Vital Signs Date Time Temp Pulse Resp B/P (MAP) Pulse Ox O2 Delivery O2 Flow Rate FiO2 05/19/20 21:19 91 156/76 05/19/20 20:15 98 Cool Aerosol 5.0 28 05/19/20 20:00 99.3 91 22 156/76 (102) 95 05/19/20 19:26 91 05/19/20 16:00 98.3 90 22 158/95 (116) 96 05/19/20 16:00 5.0 35 05/19/20 16:00 T-piece 5.0 05/19/20 16:00 84 05/19/20 13:30 98 Cool Aerosol 5.0 28 05/19/20 12:00 98.2 90 21 157/83 (107) 96 05/19/20 12:00 5.0 35 05/19/20 12:00 T-piece 5.0 05/19/20 11:47 87 05/19/20 08:37 93 05/19/20 08:37 93 156/82 05/19/20 08:00 92 05/19/20 08:00 T-piece 5.0 05/19/20 08:00 98.2 90 22 156/82 (106) 98 05/19/20 08:00 5.0 35 05/19/20 06:58 97 Cool Aerosol 5.0 28 05/19/20 04:00 88 05/19/20 04:00 98.2 89 28 143/78 (99) 95 05/19/20 04:00 T-piece 5.0 05/19/20 00:33 97 Cool Aerosol 5.0 28 05/19/20 00:00 86 05/19/20 00:00 T-piece 5.0 05/19/20 00:00 98.4 85 28 149/77 (101) 95 ROS: unchanged from my eval 05/15/20 HEENT: Thin Trach secretions RHYTHM: Afib LUNGS: bilateral rhonchi CARDIAC: normal rate, regular rhythm, normal S1 and S2, rapid rate ABDOMEN: normal bowel sounds, non tender, G-Tube intact EXTREMITIES: No edema Laboratory Tests Test 05/19/20 04:15 05/19/20 05:07 05/19/20 11:52 05/19/20 16:10 White Blood Count 19.1 K/UL (4.8-10.8) H Red Blood Count 3.50 M/UL (4.20-5.40) L Hemoglobin 9.0 G/DL (12.0-16.0) L Hematocrit 28.0 % (37.0-47.0) L Mean Corpuscular Volume 80 FL (80-99) Mean Corpuscular Hemoglobin 25.6 PG (27.0-31.0) L Mean Corpuscular Hemoglobin Concent 32.0 G/DL (32.0-36.0) Red Cell Distribution Width 16.3 % (11.6-14.8) H Platelet Count 370 K/UL (150-450) Mean Platelet Volume 7.8 FL (6.5-10.1) Neutrophils (%) (Auto) % (45.0-75.0) Lymphocytes (%) (Auto) % (20.0-45.0) Monocytes (%) (Auto) % (1.0-10.0) Eosinophils (%) (Auto) % (0.0-3.0) Basophils (%) (Auto) % (0.0-2.0) Differential Total Cells Counted 100 Neutrophils % (Manual) 72 % (45-75) Lymphocytes % (Manual) 16 % (20-45) L Monocytes % (Manual) 6 % (1-10) Eosinophils % (Manual) 3 % (0-3) Basophils % (Manual) 3 % (0-2) H Band Neutrophils 0 % (0-8) Platelet Estimate Adequate Platelet Morphology Normal Hypochromasia 1+ Anisocytosis 1+ Sodium Level 137 MMOL/L (136-145) Potassium Level 3.9 MMOL/L (3.5-5.1) Chloride Level 102 MMOL/L (98-107) Carbon Dioxide Level 26 MMOL/L (21-32) Anion Gap 9 mmol/L (5-15) Blood Urea Nitrogen 17 mg/dL (7-18) Creatinine 0.6 MG/DL (0.55-1.30) Estimat Glomerular Filtration Rate > 60 mL/min (>60) Glucose Level 213 MG/DL (74-106) H Calcium Level 8.2 MG/DL (8.5-10.1) L Magnesium Level 1.8 MG/DL (1.8-2.4) Digoxin Level 0.9 NG/ML (0.9-2.0) POC Whole Blood Glucose Pending 227 MG/DL (74-106) H 204 MG/DL (74-106) H Test 05/19/20 20:48 POC Whole Blood Glucose 184 MG/DL (74-106) H Microbiology Date/Time Source Procedure Growth Status 05/17/20 05:20 Sputum Induced Gram Stain - Final Resulted 05/17/20 05:20 Sputum Culture - Preliminary Gram Negative Bacillus 1 Gram Negative Bacillus 2 Usual Respiratory Graciela Resulted Assessment/Plan Assessment/Plan Sepsis with shock recovered Healthcare associated PNA NSTE myocardial infarction Ischemic cardiomyopathy Ac/chr systolic and diastolic CHF Paroxysmal AFib - now converted to NSR Lactic acidosis resolved Hypovolemia/dehydration corrected Severe protein calorie malnutrition Hypertensive heart disease Resp rx Diuresis based on clinical parameters Continue beta pietro Full anti-coagulation Add ACEi rx Maint dose oral digoxin John Heard MD May 19, 2020 22:06
[2020-05-19] MEDS: Lisinopril 20mg tab GT SCH (23:06)
[2020-05-20] VITALS: BP 159/87
[2020-05-20 04:00] VITALS: BP 159/86
[2020-05-20] MEDS: Meropenem 500 MG in NS 55 ML IVPB SCH ×2 (06:10→14:01)
[2020-05-20] MEDS: NovoLOG Insulin Flexpen SUBQ SCH ×3 (06:12→16:10)
--- NOTE | 2020-05-20 07:07 | NUR ---
NURSE HAND-OFF REPORT: Important Events on Shift: Dr. Heard ordered Lisinopril 20mg GT once at 2215 and daily at 0900. Patient Status: Stable Diet: Glucerna 1.2 @ 55cc/hr. Pending Orders: AM labs Latest Vital Signs: Temperature 98.4 , Pulse 92 , B/P 159 /86 , Respiratory Rate 21 , O2 SAT 96 , T-piece, O2 Flow Rate 5.0 . EKG Rhythm: SR W/ BBB Rhythm change?: No MD Notified?: No Latest Hernandez Fall Score: 55 Fall Risk: High Risk Safety Measures: Call light Within Reach, Bed Alarm Zone 1, Side Rails Side Rails x3, Bed position Low and Locked. Fall Precautions: Yellow Socks Yellow Gown Door Sign Patient Fall Education Report given to KARLENE Lozano.
[2020-05-20 07:29] LABS: BASOPHILS % (AUTO) 0.6 % (0.0-2.0); HEMATOCRIT 30.3 % (37.0-47.0); HEMOGLOBIN 9.5 G/DL (12.0-16.0); LYMPHOCYTES % (AUTO) 8.1 % (20.0-45.0); MEAN CORPUSCULAR VOLUME 80 FL (80-99); MONOCYTES % (AUTO) 3.6 % (1.0-10.0); NEUTROPHILS % (AUTO) 84.7 % (45.0-75.0); PLATELET COUNT 422 K/UL (150-450); RED BLOOD COUNT 3.81 M/UL (4.20-5.40); RED CELL DISTRIBUTION WIDTH 16.2 % (11.6-14.8); WHITE BLOOD COUNT 17.4 K/UL (4.8-10.8)
--- NOTE | 2020-05-20 07:30 | NUR ---
HAND-OFF: Report given to KARLENE Wilkins.
--- NOTE | 2020-05-20 07:30 | NUR ---
NURSE NOTES: Report received from Blake Brizuela RN.Pt awake alert eyes open but doesnot track,noted no resp distress on T-Pieice 35% 5 L ,no signs of pain or discomfort,S-R on the monitor,Hinkle cath draining yellow urine,GTF Glucerna 1.2 at 50 ml/hr no residual ,skin warm and dry IV site LFA intact,SR up x2 HOB elevated,bed lock in lowest position will continue with plans of care.
[2020-05-20 08:00] VITALS: BP 160/74
[2020-05-20 08:11] LABS: ANION GAP 5 mmol/L (5-15); BLOOD UREA NITROGEN 15 mg/dL (7-18); CALCIUM 8.8 MG/DL (8.5-10.1); CARBON DIOXIDE 30 MMOL/L (21-32); CHLORIDE 101 MMOL/L (98-107); CREATININE 0.6 MG/DL (0.55-1.30); SODIUM 136 MMOL/L (136-145)
--- NOTE | 2020-05-20 08:14 | Critical Care Progress Note ---
Assessment/Plan Assessment/Plan IMPRESSION: 1. Shock, with possible sepsis. 2. Healthcare-acquired pneumonia, tracheostomy. 3. Atrial fibrillation with RVR 4. NSTEMI 5. Cerebrovascular disease 6. Dysphagia with G-tube. 7. Hypovolemia and dehydration. 8. Lactic acidosis. 9. leukocytosis 10. 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0 05/20/20 04:00 98.4 92 21 159/86 (110) 96 05/20/20 01:02 97 Cool Aerosol 5.0 28 05/20/20 00:00 84 05/20/20 00:00 5.0 35 05/20/20 00:00 T-piece 5.0 05/20/20 00:00 98.9 86 21 159/87 (111) 97 05/19/20 23:06 161/96 05/19/20 21:19 91 156/76 05/19/20 20:15 98 Cool Aerosol 5.0 28 05/19/20 20:00 5.0 35 05/19/20 20:00 T-piece 5.0 05/19/20 20:00 99.3 91 22 156/76 (102) 95 05/19/20 19:26 91 05/19/20 16:00 98.3 90 22 158/95 (116) 96 05/19/20 16:00 5.0 35 05/19/20 16:00 T-piece 5.0 05/19/20 16:00 84 05/19/20 13:30 98 Cool Aerosol 5.0 28 05/19/20 12:00 98.2 90 21 157/83 (107) 96 05/19/20 12:00 5.0 35 05/19/20 12:00 T-piece 5.0 05/19/20 11:47 87 05/19/20 08:37 93 05/19/20 08:37 93 156/82 Objective: WDWN NAD reduced breath sounds bilaterally without rhonchi or wheeze S1S2 RRR without MRG NABS nontender no HSM no CCE nonfocal poor LOC Accucheck: 242 Fernie Martinez MD May 20, 2020 08:14
[2020-05-20] MEDS: Eliquis 5mg tablet GT SCH ×2 (09:42→17:11)
[2020-05-20] MEDS: Metoprolol Tartrate 50mg tab GT SCH (09:42)
[2020-05-20] MEDS: Digoxin 0.125mg tab GT SCH (09:43)
[2020-05-20] MEDS: Lisinopril 20mg tab GT SCH (09:43)
[2020-05-20] MEDS ORDERED: Tubing IV Secondary IV ONE (10:09)
--- NOTE | 2020-05-20 10:42 | Infectious Diseases Prog Note ---
Assessment/Plan Assessment/Plan A 1. pneumonia with Pseudomonas & Acinetobacter COVID19 negative 2. Chronic respiratory failure 3. leucocytosis decreased 4. diabetes mellitus 5. hypertension 6. dementia 7. 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 Add Levaquin 2. Continue meropenem 3. will follow up cultures Subjective ROS Limited/Unobtainable: Yes Constitutional: Denies: fever Allergies: Coded Allergies: No Known Allergies (Unverified , 05/15/20) Objective Last 24 Hour Vital Signs Date Time Temp Pulse Resp B/P (MAP) Pulse Ox O2 Delivery O2 Flow Rate FiO2 05/20/20 09:43 160/74 05/20/20 09:43 91 05/20/20 09:42 91 160/74 05/20/20 08:00 98.4 94 17 160/74 (102) 100 05/20/20 08:00 91 05/20/20 08:00 5.0 35 05/20/20 04:00 89 05/20/20 04:00 5.0 35 05/20/20 04:00 T-piece 5.0 05/20/20 04:00 98.4 92 21 159/86 (110) 96 05/20/20 01:02 97 Cool Aerosol 5.0 28 05/20/20 00:00 84 05/20/20 00:00 5.0 35 05/20/20 00:00 T-piece 5.0 05/20/20 00:00 98.9 86 21 159/87 (111) 97 05/19/20 23:06 161/96 05/19/20 21:19 91 156/76 05/19/20 20:15 98 Cool Aerosol 5.0 28 05/19/20 20:00 5.0 35 05/19/20 20:00 T-piece 5.0 05/19/20 20:00 99.3 91 22 156/76 (102) 95 05/19/20 19:26 91 05/19/20 16:00 98.3 90 22 158/95 (116) 96 05/19/20 16:00 5.0 35 05/19/20 16:00 T-piece 5.0 05/19/20 16:00 84 05/19/20 13:30 98 Cool Aerosol 5.0 28 05/19/20 12:00 98.2 90 21 157/83 (107) 96 8/20/20 12:00 5.0 35 05/19/20 12:00 T-piece 5.0 05/19/20 11:47 87 Height (Feet): 5 Height (Inches): 4.00 Weight (Pounds): 192 General Appearance: no acute distress HEENT: status post trach Respiratory/Chest: lungs clear, other - on T bar Cardiovascular: normal rate Abdomen: soft, non tender, other - GT feeding Extremities: no edema Neurologic/Psychiatric: other - sleeping Laboratory Tests Test 05/19/20 11:52 05/19/20 16:10 05/19/20 20:48 05/20/20 06:00 POC Whole Blood Glucose 227 MG/DL (74-106) H 204 MG/DL (74-106) H 184 MG/DL (74-106) H 242 MG/DL (74-106) H Test 05/20/20 07:18 White Blood Count 17.4 K/UL (4.8-10.8) H Red Blood Count 3.81 M/UL (4.20-5.40) L Hemoglobin 9.5 G/DL (12.0-16.0) L Hematocrit 30.3 % (37.0-47.0) L Mean Corpuscular Volume 80 FL (80-99) Mean Corpuscular Hemoglobin 24.9 PG (27.0-31.0) L Mean Corpuscular Hemoglobin Concent 31.2 G/DL (32.0-36.0) L Red Cell Distribution Width 16.2 % (11.6-14.8) H Platelet Count 422 K/UL (150-450) Mean Platelet Volume 7.4 FL (6.5-10.1) Neutrophils (%) (Auto) 84.7 % (45.0-75.0) H Lymphocytes (%) (Auto) 8.1 % (20.0-45.0) L Monocytes (%) (Auto) 3.6 % (1.0-10.0) Eosinophils (%) (Auto) 3.0 % (0.0-3.0) Basophils (%) (Auto) 0.6 % (0.0-2.0) Sodium Level 136 MMOL/L (136-145) Potassium Level 4.0 MMOL/L (3.5-5.1) Chloride Level 101 MMOL/L (98-107) Carbon Dioxide Level 30 MMOL/L (21-32) Anion Gap 5 mmol/L (5-15) Blood Urea Nitrogen 15 mg/dL (7-18) Creatinine 0.6 MG/DL (0.55-1.30) Estimat Glomerular Filtration Rate > 60 mL/min (>60) Glucose Level 244 MG/DL (74-106) H Calcium Level 8.8 MG/DL (8.5-10.1) Pro-B-Type Natriuretic Peptide 72367 pg/mL (0-125) H Vancomycin Level Trough 6.6 ug/mL (5.0-12.0) Current Medications Medications (Trade) Dose Ordered Sig/Cayden Route PRN Reason Start Time Stop Time Status Last Admin Dose Admin Apixaban (Eliquis) 5 mg BID GT 05/19/20 09:00 08/14/20 08:59 05/20/20 09:42 Dextrose (Dextrose 50%) 25 ml Q30M PRN IV Hypoglycemia 05/18/20 19:00 08/14/20 01:29 Dextrose (Dextrose 50%) 50 ml Q30M PRN IV Hypoglycemia 05/18/20 19:00 08/14/20 01:29 Digoxin (Lanoxin) 0.125 mg DAILY GT 05/19/20 09:00 08/17/20 08:59 05/20/20 09:43 Insulin Aspart (NovoLOG) BEFORE MEALS AND HS SUBQ 05/18/20 21:00 08/14/20 06:29 05/20/20 06:12 Lisinopril (PriniviL) 20 mg DAILY GT 05/19/20 22:15 06/18/20 22:14 05/20/20 09:43 Meropenem 500 mg/ Sodium Chloride 55 ml @ 110 mls/hr EVERY 8 HOURS IVPB 05/18/20 22:00 05/23/20 13:59 05/20/20 06:10 Metoprolol Tartrate (Lopressor) 50 mg Q12HR GT 05/18/20 21:00 08/14/20 01:29 05/20/20 09:42 Colby Rock MD May 20, 2020 10:41
[2020-05-20] MEDS ORDERED: Levofloxacin 750mg tab GT SCH (10:45)
--- NOTE | 2020-05-20 11:30 | Surgery Progress Note ---
Surgery Progress Note Subjective Additional Comments wbc 17 h/h stable no n/v/f/c exam stable dressings going well Objective Last 24 Hour Vital Signs Date Time Temp Pulse Resp B/P (MAP) Pulse Ox O2 Delivery O2 Flow Rate FiO2 05/20/20 09:43 160/74 05/20/20 09:43 91 05/20/20 09:42 91 160/74 05/20/20 08:00 T-piece 5.0 05/20/20 08:00 98.4 94 17 160/74 (102) 100 05/20/20 08:00 91 05/20/20 08:00 5.0 35 05/20/20 06:30 97 Cool Aerosol 5.0 28 05/20/20 04:00 89 05/20/20 04:00 5.0 35 05/20/20 04:00 T-piece 5.0 05/20/20 04:00 98.4 92 21 159/86 (110) 96 05/20/20 01:02 97 Cool Aerosol 5.0 28 05/20/20 00:00 84 05/20/20 00:00 5.0 35 05/20/20 00:00 T-piece 5.0 05/20/20 00:00 98.9 86 21 159/87 (111) 97 05/19/20 23:06 161/96 05/19/20 21:19 91 156/76 05/19/20 20:15 98 Cool Aerosol 5.0 28 05/19/20 20:00 5.0 35 05/19/20 20:00 T-piece 5.0 05/19/20 20:00 99.3 91 22 156/76 (102) 95 05/19/20 19:26 91 05/19/20 16:00 98.3 90 22 158/95 (116) 96 05/19/20 16:00 5.0 35 05/19/20 16:00 T-piece 5.0 05/19/20 16:00 84 05/19/20 13:30 98 Cool Aerosol 5.0 28 05/19/20 12:00 98.2 90 21 157/83 (107) 96 05/19/20 12:00 5.0 35 05/19/20 12:00 T-piece 5.0 05/19/20 11:47 87 I&O Intake and Output 05/19/20 05/20/20 19:00 07:00 Intake Total 960 ml 730 ml Output Total 800 ml 1200 ml Balance 160 ml -470 ml Intake Free Water 250 ml 180 ml IV Total 110 ml Tube Feeding 600 ml 550 ml Output Urine Total 800 ml 1200 ml # Bowel Movements 1 1 Dressing: saturated Wound: other Cardiovascular: RSR Respiratory: decreased breath sounds Abdomen: soft, non-tender, present bowel sounds, non-distended Extremities: edema, no tenderness, no cyanosis Laboratory Tests Test 05/19/20 11:52 05/19/20 16:10 05/19/20 20:48 05/20/20 06:00 POC Whole Blood Glucose 227 MG/DL (74-106) H 204 MG/DL (74-106) H 184 MG/DL (74-106) H 242 MG/DL (74-106) H Test 05/20/20 07:18 White Blood Count 17.4 K/UL (4.8-10.8) H Red Blood Count 3.81 M/UL (4.20-5.40) L Hemoglobin 9.5 G/DL (12.0-16.0) L Hematocrit 30.3 % (37.0-47.0) L Mean Corpuscular Volume 80 FL (80-99) Mean Corpuscular Hemoglobin 24.9 PG (27.0-31.0) L Mean Corpuscular Hemoglobin Concent 31.2 G/DL (32.0-36.0) L Red Cell Distribution Width 16.2 % (11.6-14.8) H Platelet Count 422 K/UL (150-450) Mean Platelet Volume 7.4 FL (6.5-10.1) Neutrophils (%) (Auto) 84.7 % (45.0-75.0) H Lymphocytes (%) (Auto) 8.1 % (20.0-45.0) L Monocytes (%) (Auto) 3.6 % (1.0-10.0) Eosinophils (%) (Auto) 3.0 % (0.0-3.0) Basophils (%) (Auto) 0.6 % (0.0-2.0) Sodium Level 136 MMOL/L (136-145) Potassium Level 4.0 MMOL/L (3.5-5.1) Chloride Level 101 MMOL/L (98-107) Carbon Dioxide Level 30 MMOL/L (21-32) Anion Gap 5 mmol/L (5-15) Blood Urea Nitrogen 15 mg/dL (7-18) Creatinine 0.6 MG/DL (0.55-1.30) Estimat Glomerular Filtration Rate > 60 mL/min (>60) Glucose Level 244 MG/DL (74-106) H Calcium Level 8.8 MG/DL (8.5-10.1) Pro-B-Type Natriuretic Peptide 66076 pg/mL (0-125) H Vancomycin Level Trough 6.6 ug/mL (5.0-12.0) Plan Problems: (1) HCAP (healthcare-associated pneumonia) (2) Encounter for generalized patient complaints (3) Sepsis Assessment & Plan: leukocytosis, anemia, lactic acidosis admitted to ICU on abx improved d/c planning for SNF cont current care plan as below up on dc with snf wound care team Pt presented on admission with generalized Edema,multiple Pressure Injuries and IAD. Unstageable Sacral Pressure Injury(L)11.4cm x (W)7.2cm. Base of wound is 80 % dry necrosis ,20% beefy red and moist,Edges are macerated.. Along immediate borders of wound is id dark and fluctuant with surrounding non-blanching erythema. No odor or exudate noted. DTPI noted to R Ischium. Base of wound is maroon and fluctuant (L)4cm x (W) 2.2cm. Incontinence Associated Dermatitis noted. Mons Pubis ,Perineum and clefts of buttocks are erythematous with scattered satellite lesions. Both heels are soft but blanchable. Both feet cool to touch toes on each feet are dusky . Scattered melasmas noted to upper and mid back. Skin assessed under tracheal collar and no evidence of skin breakdown noted. Tx.Plan: Cleanse Sacral wound with Saline. Apply Therahoney. Apply MOisture Barrier Periwound. Cover with Optifoam drsg Daily and prn. Apply Cavilon Skin Barrier to R ischium. Cover with Optifoam Drsg. Change every 3Days and PRN. Apply Moisture Barrier Paste to Perineal area , mid thighs and buttocks with each incontinence Care. Apply Cavilon Skin Barrier to Both heels and Malleoli. Cover each site with Optifoam drsgs. Change every 7 days PRN. Reposition at least every 2hours or as tolerated. Off-load Heels with PIllow. APM/DANIEL Mattress overlay. nutritional optimization wounds unlikely etiology of sepsis will monitor closely (4) Atrial fibrillation with RVR Adrian Gar May 20, 2020 11:30
--- NOTE | 2020-05-20 11:49 | NUR ---
DISCHARGE PLANNING: NOTE REFERRAL SENT TO VI AT [facility] FOR [facility] MAKING HIM AWARE OF DC ORDER Addendum: 05/20/20 at 1521 by Delia Huff CM C/S FAXED ROOM IS STILL PENDING
--- NOTE | 2020-05-20 12:00 | NUR ---
NURSE NOTES: Pt stable,noted no distress tracheal secretions suctioned ,pulled turned and repositioned.
[2020-05-20 12:01] VITALS: BP 152/91
--- NOTE | 2020-05-20 13:10 | General Progress Note ---
Assessment/Plan Problem List: (1) HCAP (healthcare-associated pneumonia) ICD Codes: J18.9 - Pneumonia, unspecified organism SNOMED: 761880702, 725764665 (2) Encounter for generalized patient complaints ICD Codes: Z00.8 - Encounter for other general examination SNOMED: 768117819 (3) Sepsis ICD Codes: A41.9 - Sepsis, unspecified organism SNOMED: 54933331, 007660860 (4) Atrial fibrillation with RVR ICD Codes: I48.91 - Unspecified atrial fibrillation SNOMED: 770015630882203 Status: stable, not improved Assessment/Plan: oral metoprolol/dig for rate control eliquis for stroke prophylaxis monitor for bleeding tube feeds resp care/suctioning stress ulcer prophylaxis monitor labs lytes monitor cxr abx per ID trending wbc Subjective ROS Limited/Unobtainable: Yes Constitutional: Reports: malaise, weakness HEENT: Reports: no symptoms Cardiovascular: Reports: no symptoms Respiratory: Reports: cough, shortness of breath, sputum Genitourinary: Reports: no symptoms Neurologic/Psychiatric: Reports: pre-existing deficit, seizure Endocrine: Reports: no symptoms Hematologic/Lymphatic: Reports: anemia Allergies: Coded Allergies: No Known Allergies (Unverified , 05/15/20) All Systems: reviewed and negative except above Subjective There have been no overnight events. Remained stable on trach collar. Sinus rhythm. No SVT noted. Now on Levaquin and meropenem. Positive sputum cultures noted. No fevers or chills. Mild secretions. Chest x-ray with improving infiltrates. Objective Last 24 Hour Vital Signs Date Time Temp Pulse Resp B/P (MAP) Pulse Ox O2 Delivery O2 Flow Rate FiO2 05/20/20 12:03 T-piece 5.0 05/20/20 12:02 5.0 35 05/20/20 12:01 97.7 86 17 152/91 (111) 99 05/20/20 09:43 160/74 05/20/20 09:43 91 05/20/20 09:42 91 160/74 05/20/20 08:00 T-piece 5.0 05/20/20 08:00 98.4 94 17 160/74 (102) 100 05/20/20 08:00 91 05/20/20 08:00 5.0 35 05/20/20 06:30 97 Cool Aerosol 5.0 28 05/20/20 04:00 89 05/20/20 04:00 5.0 35 05/20/20 04:00 T-piece 5.0 05/20/20 04:00 98.4 92 21 159/86 (110) 96 05/20/20 01:02 97 Cool Aerosol 5.0 28 05/20/20 00:00 84 05/20/20 00:00 5.0 35 05/20/20 00:00 T-piece 5.0 05/20/20 00:00 98.9 86 21 159/87 (111) 97 05/19/20 23:06 161/96 05/19/20 21:19 91 156/76 05/19/20 20:15 98 Cool Aerosol 5.0 28 05/19/20 20:00 5.0 35 05/19/20 20:00 T-piece 5.0 05/19/20 20:00 99.3 91 22 156/76 (102) 95 05/19/20 19:26 91 05/19/20 16:00 98.3 90 22 158/95 (116) 96 05/19/20 16:00 5.0 35 05/19/20 16:00 T-piece 5.0 05/19/20 16:00 84 05/19/20 13:30 98 Cool Aerosol 5.0 28 Intake and Output 05/19/20 05/20/20 19:00 07:00 Intake Total 960 ml 730 ml Output Total 800 ml 1200 ml Balance 160 ml -470 ml Intake Free Water 250 ml 180 ml IV Total 110 ml Tube Feeding 600 ml 550 ml Output Urine Total 800 ml 1200 ml # Bowel Movements 1 1 Laboratory Tests 05/19/20 16:10: POC Whole Blood Glucose 204H 05/19/20 20:48: POC Whole Blood Glucose 184H 05/20/20 06:00: POC Whole Blood Glucose 242H 05/20/20 07:18: White Blood Count 17.4H, Red Blood Count 3.81L, Hemoglobin 9.5L, Hematocrit 30.3L, Mean Corpuscular Volume 80, Mean Corpuscular Hemoglobin 24.9L, Mean Corpuscular Hemoglobin Concent 31.2L, Red Cell Distribution Width 16.2H, Platelet Count 422, Mean Platelet Volume 7.4, Neutrophils (%) (Auto) 84.7H, Lymphocytes (%) (Auto) 8.1L, Monocytes (%) (Auto) 3.6, Eosinophils (%) (Auto) 3.0, Basophils (%) (Auto) 0.6, Sodium Level 136, Potassium Level 4.0, Chloride Level 101, Carbon Dioxide Level 30, Anion Gap 5, Blood Urea Nitrogen 15, Creatinine 0.6, Estimat Glomerular Filtration Rate > 60, Glucose Level 244H, Calcium Level 8.8, Pro-B-Type Natriuretic Peptide 50806H, Vancomycin Level Trough 6.6 05/20/20 11:54: POC Whole Blood Glucose [Pending] Height (Feet): 5 Height (Inches): 4.00 Weight (Pounds): 192 Objective General Appearance: WD/WN, lethargic, confused EENT: PERRL/EOMI, normal ENT inspection Neck: non-tender, normal alignment, supple Cardiovascular: normal peripheral pulses Respiratory/Chest: lungs clear, normal breath sounds, no respiratory distress, no accessory muscle use Abdomen: normal bowel sounds, non tender, soft, no organomegaly Edema: no edema noted Arm (L), no edema noted Arm (R) Neurologic: disoriented, unresponsive, aphasia Skin: normal pigmentation Lymphatic: normal anterior cervical (L), normal anterior cervical (R) Sanjay Solano MD May 20, 2020 13:10
--- NOTE | 2020-05-20 15:21 | NUR ---
CASE MANAGEMENT: REVIEW 05/20/2020 SI:SEPSIS. PNA. HCAP (healthcare-associated pneumonia) VS: T 97.7 HR 86 RR 17 B/P 152/91 SATS 99% ON 5L/T PIECE FIO2 35 LABS: WBC 17.4 GLU 244 BNP 28278 IS:MEROPENEM IV Q8H ELIQUIS GT BID DIGOXIN GT QD LISINOPRIL GT QD LEVAQUIN GT QD INSULIN ASPART SUBQ AC/HS LOPRESSOR GT Q12H SDU PLAN OF CARE: DC TO SNF TODAY
--- NOTE | 2020-05-20 15:29 | NUR ---
DISCHARGE DISPOSITION: PLEASE READ PT TO BE DISCHARGED TO [facility] [address] [facility] [address] T; [phone]>>> CALL FOR REPORT LIFELINE W/ RT (IE) ETA 1730 CM S/W SON ISIDRO AN WHO IS AGREEABLE TO DC TO SNF
--- NOTE | 2020-05-20 15:29 | NUR ---
INSURANCE UPDATED CLINICALS AND REVIEW HAVE BEEN FAXED TO: KEMAL @ [employer] # [phone] FAX#[phone]
--- NOTE | 2020-05-20 15:41 | Cardiology Progress Note ---
Subjective DATE OF SERVICE: May 20, 2020 Maintaining sinus rhythm. BP parameters stable. On-going trach care 2D Echo : EjFxn 35% with mild regurg Increasing BP trend Objective Last 24 Hour Vital Signs Date Time Temp Pulse Resp B/P (MAP) Pulse Ox O2 Delivery O2 Flow Rate FiO2 05/20/20 13:25 98 Cool Aerosol 5.0 28 05/20/20 12:03 T-piece 5.0 05/20/20 12:02 5.0 35 05/20/20 12:01 97.7 86 17 152/91 (111) 99 05/20/20 11:29 84 05/20/20 09:43 160/74 05/20/20 09:43 91 05/20/20 09:42 91 160/74 05/20/20 08:00 T-piece 5.0 05/20/20 08:00 98.4 94 17 160/74 (102) 100 05/20/20 08:00 91 05/20/20 08:00 5.0 35 05/20/20 06:30 97 Cool Aerosol 5.0 28 05/20/20 04:00 89 05/20/20 04:00 5.0 35 05/20/20 04:00 T-piece 5.0 05/20/20 04:00 98.4 92 21 159/86 (110) 96 05/20/20 01:02 97 Cool Aerosol 5.0 28 05/20/20 00:00 84 05/20/20 00:00 5.0 35 05/20/20 00:00 T-piece 5.0 05/20/20 00:00 98.9 86 21 159/87 (111) 97 05/19/20 23:06 161/96 05/19/20 21:19 91 156/76 05/19/20 20:15 98 Cool Aerosol 5.0 28 05/19/20 20:00 5.0 35 05/19/20 20:00 T-piece 5.0 05/19/20 20:00 99.3 91 22 156/76 (102) 95 05/19/20 19:26 91 05/19/20 16:00 98.3 90 22 158/95 (116) 96 05/19/20 16:00 5.0 35 05/19/20 16:00 T-piece 5.0 05/19/20 16:00 84 ROS: unchanged from my eval 05/15/20 HEENT: Thin Trach secretions RHYTHM: Afib LUNGS: bilateral rhonchi CARDIAC: normal rate, regular rhythm, normal S1 and S2, rapid rate ABDOMEN: normal bowel sounds, non tender, G-Tube intact EXTREMITIES: No edema Laboratory Tests Test 05/19/20 16:10 05/19/20 20:48 05/20/20 06:00 05/20/20 07:18 POC Whole Blood Glucose 204 MG/DL (74-106) H 184 MG/DL (74-106) H 242 MG/DL (74-106) H White Blood Count 17.4 K/UL (4.8-10.8) H Red Blood Count 3.81 M/UL (4.20-5.40) L Hemoglobin 9.5 G/DL (12.0-16.0) L Hematocrit 30.3 % (37.0-47.0) L Mean Corpuscular Volume 80 FL (80-99) Mean Corpuscular Hemoglobin 24.9 PG (27.0-31.0) L Mean Corpuscular Hemoglobin Concent 31.2 G/DL (32.0-36.0) L Red Cell Distribution Width 16.2 % (11.6-14.8) H Platelet Count 422 K/UL (150-450) Mean Platelet Volume 7.4 FL (6.5-10.1) Neutrophils (%) (Auto) 84.7 % (45.0-75.0) H Lymphocytes (%) (Auto) 8.1 % (20.0-45.0) L Monocytes (%) (Auto) 3.6 % (1.0-10.0) Eosinophils (%) (Auto) 3.0 % (0.0-3.0) Basophils (%) (Auto) 0.6 % (0.0-2.0) Sodium Level 136 MMOL/L (136-145) Potassium Level 4.0 MMOL/L (3.5-5.1) Chloride Level 101 MMOL/L (98-107) Carbon Dioxide Level 30 MMOL/L (21-32) Anion Gap 5 mmol/L (5-15) Blood Urea Nitrogen 15 mg/dL (7-18) Creatinine 0.6 MG/DL (0.55-1.30) Estimat Glomerular Filtration Rate > 60 mL/min (>60) Glucose Level 244 MG/DL (74-106) H Calcium Level 8.8 MG/DL (8.5-10.1) Pro-B-Type Natriuretic Peptide 65836 pg/mL (0-125) H Vancomycin Level Trough 6.6 ug/mL (5.0-12.0) Test 05/20/20 11:54 POC Whole Blood Glucose Pending Assessment/Plan Assessment/Plan Sepsis with shock recovered Healthcare associated PNA NSTE myocardial infarction Ischemic cardiomyopathy Ac/chr systolic and diastolic CHF Paroxysmal AFib - now converted to NSR Lactic acidosis resolved Hypovolemia/dehydration corrected Severe protein calorie malnutrition Hypertensive heart disease Resp rx Diuresis based on clinical parameters Continue beta pietro Full anti-coagulation Add ACEi rx - titrate up. Maint dose oral digoxin John Heard MD May 20, 2020 15:41
[2020-05-20 16:00] VITALS: BP 163/86
--- NOTE | 2020-05-20 16:00 | NUR ---
NURSE NOTES: Dr Heard at bedside,updated re pt's status,informed re pt's discahrge .
[2020-05-20 17:12] VITALS: BP 163/86
--- NOTE | 2020-05-20 17:30 | NUR ---
NURSE NOTES: Report called out to [facility],spoke with Nnamdi Pacs,RN updated re pt's status,V/S and medications.IV site to LFA remove,no signs of infiltration noted ,per request by facillity nurse,Hinkle catheter not removed, since pt has a sacral decubitus DTI,picture taken.
[2020-05-20] MEDS ORDERED: Lisinopril 20mg tab GT SCH (18:00)
--- NOTE | 2020-05-20 18:00 | NUR ---
NURSE NOTES: Pt discharged and out of the unit awake,alert in no resp distress stable ,on T-Piece 5L ,35% Fio2,accompanied by ambulance personnel.
--- NOTE | 2020-05-22 18:46 | Discharge Summary ---
Discharge Summary Discharge Summary _ DATE OF ADMISSION: 05/15/2020 DATE OF DISCHARGE: 05/20/2020 DISCHARGED BY: Dr. Hugo Martinez CONSULTANTS: Dr. John Salamanca BRIEF HOSPITAL COURSE: Patient is a 74-year-old female who resides at a custodial facility. Patient has history of chronic atrial fibrillation and is on anticoagulation. Patient was sent to the emergency room for evaluation of rapid heart rate, diaphoresis and tachypnea. She has medical history significant for CVA, dementia, dysphagia, G-tube, hypertension and insulin requiring diabetes. Upon evaluation at ED, blood pressure was 93/53, heart rate 160. She was given IV bolus and Cardizem bolus and drip. EKG was at the rate of 165 bpm. Left axis deviation. No ectopy. No ST or T wave abnormality. She was maintained on the trip and heart rate slowly went down and blood pressure improved. Blood work showed WBC elevated to 16. Hemoglobin 9 and hematocrit 30. Electrolytes were normal. Urinalysis clear. Lactic acid was elevated to 2.2. Troponin was 0.194. Chest x-ray showed patchy left lung airspace opacities. COVID-19 test was negative but high suspicion as this may be false negative. She was started on vancomycin and Zosyn. Patient heart rate remained high in the 150s to 180s despite being maxed out on Cardizem drip. She was given another round of bolus of 15 mg Cardizem. She was then placed on esmolol drip. Patient was admitted to ICU. She underwent cardiac evaluation. She was continued on beta-pietro. IV dose of diltiazem was given for additional rate control. She was continued on broad- spectrum antibiotics IV vancomycin and Zosyn. She was given cautious hydration. She was continued on full anticoagulation. Blood glucose was monitored and was given insulin coverage by sliding scale. On admission, patient had multiple pressure injuries. Surgeon was consulted to assist with management and care. Patient has an unstageable sacral pressure injury; deep tissue pressure injury to the right ischium; incontinence associated dermatitis. Both heels were soft but blanchable. Skin was assessed under the tracheal collar and there was no evidence of skin breakdown. She was given local wound care. She was placed on APM/DANIEL overlay mattress with frequent repositioning and offloading. Nutrition was optimized. Patient remained in atrial fibrillation despite being on Cardizem drip, beta- pietro and PRN diltiazem. Blood pressure was stable. Patient was then digitalized. Patient converted to sinus rhythm in the morning of 05/18/2020. He had an echocardiogram that showed ejection fraction of 35% with mild regurgitation. Chest x-ray showed improved edema. IVF was discontinued. She was given diuresis. Cardizem was transitioned to p.o. She was maintained on oral digoxin. Continued on beta-pietro. Blood culture did not isolate any growth. Sputum culture showed growth of Pseudomonas and Acinetobacter. Antibiotic was changed to meropenem and Levaquin. Patient was eventually discharged back to longterm. FINAL DIAGNOSES: Sepsis with shock recovered Healthcare associated pneumonia, with tracheostomy Atrial fibrillation with RVR Non-ST elevated NM Ischemic cardiomyopathy Acute on chronic systolic and diastolic CHF Paroxysmal atrial flutter fibrillation, converted to normal sinus rhythm Hypovolemia/dehydration corrected Lactic acidosis resolved Severe protein calorie malnutrition Hypertensive heart disease Deep tissue pressure injury as stated above, present on admission DISPOSITION: Patient was discharged ot a SNF. DISCHARGE MEDICATIONS: Refer to Discharge Medication List. Continue Meropenem 500 mg q8 hours until 05/23 and Levaquin 750 mg GT daily until 05/27 I have been assigned to complete a discharge summary on this account, I was not involved with the patient's management.--ALEJANDRA Vizcarra Jacqueline Robles NP May 22, 2020 18:46
== END 2020-05-20 18:00 | DRG 871 ==
LOC: EDBD 19:01 → EMR 20:26 → ICU 20:28 → EDBEDREQ 05-16 01:13 → 2W 05-18 17:55
DX: A41.9 Sepsis, unspecified organism (principal); J18.9 Pneumonia, unspecified organism; R65.21 Severe sepsis with septic shock; I21.4 Non-ST elevation (NSTEMI) myocardial infarction; I50.43 Acute on chronic combined systolic (congestive) and diastolic (congestive) heart failure; E43 Unspecified severe protein-calorie malnutrition; J15.1 Pneumonia due to Pseudomonas; J15.6 Pneumonia due to other Gram-negative bacteria; Z43.1 Encounter for attention to gastrostomy; I48.92 Unspecified atrial flutter; J96.10 Chronic respiratory failure, unspecified whether with hypoxia or hypercapnia; Z86.73 Personal history of transient ischemic attack (TIA), and cerebral infarction without residual deficits; R13.10 Dysphagia, unspecified; E11.9 Type 2 diabetes mellitus without complications; F03.90 Unspecified dementia, unspecified severity, without behavioral disturbance, psychotic disturbance, mood disturbance, and anxiety; L89.150 Pressure ulcer of sacral region, unstageable; L89.316 Pressure-induced deep tissue damage of right buttock; L30.8 Other specified dermatitis; Y95 Nosocomial condition; I25.5 Ischemic cardiomyopathy; I11.0 Hypertensive heart disease with heart failure; I48.0 Paroxysmal atrial fibrillation; E86.0 Dehydration; Z43.0 Encounter for attention to tracheostomy
CPT/HCPCS: 36415; 71045; 80048; 80053; 80162; 80202; 81003; 82550; 82553; 82728; 82962; 83605; 83615; 83735; 83880; 84100; 84443; 84484; 85007; 85025; 85379; 85610; 85730; 87040; 87070; 87081; 87181; 87205; 93306; 96361; 96365; 96368; 96375; 96376; 99291; J1815; J7030; J8499; U0002

== ENCOUNTER 2020-05-25 16:48 | Inpatient (IN) | payer MEDICARE, MEDICAID ==
[~2020-05-25] VITALS: Ht 160 cm; Wt 71.6 kg
[~2020-05-25 16:48] MED LIST: ACETAMINOP160 MG/5 M GT; CARVEDILOL3.125 MG GT; ELIQUIS5 MG GT; INSULIN LI100 UNIT/1 SQ; LANSOPRAZOLE30 MG GT; LANTUS SOL100 UNIT/1 SUBQ; MODAFINIL100 MG GT
[2020-05-25 16:54] VITALS: BP 138/74
[2020-05-25] MEDS ORDERED: ACETAMINOPHEN120 MG GT (17:03)
[2020-05-25] MEDS ORDERED: FUROSEMIDE40 MG GT (17:03)
[2020-05-25] MEDS ORDERED: METOPROLOL TART50 M1 GT (17:03)
[2020-05-25] MEDS ORDERED: ELIQUIS5 MG GT (17:03)
[2020-05-25] MEDS ORDERED: LEVAQUIN750 MG GT (17:03)
[2020-05-25] MEDS ORDERED: LISINOPRIL20 MG ORAL (17:03)
[2020-05-25] MEDS ORDERED: DIGOXIN0.125 MG/2 ORAL (17:03)
[2020-05-25] MEDS ORDERED: INSULIN LI100 UNIT/1 SQ (17:04)
[2020-05-25] MEDS ORDERED: Vancomycin 1 GM in NS 275 ML IV ONE (17:15)
[2020-05-25] MEDS: Cefepime HCl 2 GM in NS 110 ML IV SCH (17:31)
--- NOTE | 2020-05-25 17:35 | Emergency Room Report ---
History of Present Illness General Chief Complaint: Abnormal Labs Source: Patient Present Illness HPI This [facility]. She has a history of respiratory failure and has a tracheostomy and is on a T-piece. She also has a G-tube. She is recently hospitalized for septic shock and A. fib with rapid ventricular response. She is currently receiving meropenem for ongoing treatment for the pneumonia. She presents [facility] a [facility] for concern of increasing white blood cell count on routine labs. She is also getting vancomycin. The patient has many chronic medical problems to include A. fib, respiratory failure, CVA, diabetes, aphasia, hemiplegia, coronary artery disease, congestive heart failure to name a few. The patient is nonverbal at baseline and is unable to give any type of history. History is obtained from EMS and the medical record. Allergies: Coded Allergies: No Known Allergies (Unverified , 05/15/20) COVID-19 Screening Contact w/high risk pt: No Experienced COVID-19 symptoms?: No COVID-19 Testing performed THEATER MANAGER: No Patient History Past Medical History: see triage record, old chart reviewed, DM, HTN, NV, CAD, CHF, AFib, pneumonia, CVA/TIA Past Surgical History: other - Trach, G-tube Social History: Denies: smoking, alcohol use, drug use Last Menstrual Period: NA Now: No Reviewed Nursing Documentation: PMH: Agreed; PSxH: Agreed Nursing Documentation-PMH Past Medical History: No History, Except For Hx Diabetes: Yes - TYPE 1 Hx Cancer: No Hx Gastrointestinal Problems: Yes - GT feeding Hx Neurological Problems: Yes Hx Cerebrovascular Accident: Yes Hx Paralysis: Yes Hx Weakness: Yes Review of Systems All Other Systems: negative except mentioned in HPI Physical Exam Vital Signs Date Time Temp Pulse Resp B/P (MAP) Pulse Ox O2 Delivery O2 Flow Rate FiO2 05/25/20 16:49 98.2 80 18 138/74 (95) 98 T-piece 5.0 Sp02 EP Interpretation: reviewed, normal General Appearance: no apparent distress, alert, GCS 15, non-toxic Head: normocephalic, atraumatic ENT: no angioedema Neck: normal inspection, tracheotomy - Trach in place Respiratory: chest non-tender, lungs clear, normal breath sounds, no respiratory distress, no retraction, no accessory muscle use, speaking full sentences Cardiovascular #1: regular rate, rhythm, no edema Gastrointestinal: normal inspection, non tender, soft, non-distended, other - G -tube in place Rectal: deferred Musculoskeletal: normal inspection, non-tender Neurologic: alert, responsive, other - At baseline Psychiatric: mood/affect normal Skin: Decubitus/Ulcer - See RN skin exam Medical Decision Making Diagnostic Impression: Primary Impression: Sepsis Additional Impressions: Pneumonia Elevated troponin Anemia ER Course This patient is found to have a white blood cell count of 33,000. Troponin is slightly elevated but I suspect this is more of a demand ischemia. The previous troponin on her previous visit was higher. Chest x-ray shows findings consistent with a left lower lobe pneumonia. The patient was given broad- spectrum antibiotics and admitted for further evaluation and treatment. The patient remained stable with normal heart rate, blood pressure and oxygen saturation. COVID-19 rapid test was negative. This patient was evaluated in the context of the global COVID-19 pandemic, which necessitated consideration that the patient might be at risk for infection with the [id number] virus that causes COVID-19. Institutional protocols and algorithms that pertain to the evaluation of patients at risk for COVID-19 and the state of rapid change based on information released by multiple regulatory bodies including the CDC and federal and state organizations. These policies and algorithms were followed during the patient' s care in the ED. Laboratory Tests Test 05/25/20 17:08 05/25/20 17:16 05/25/20 17:25 Lactic Acid Level 1.40 mmol/L (0.4-2.0) White Blood Count 33.9 K/UL (4.8-10.8) *H Red Blood Count 3.85 M/UL (4.20-5.40) L Hemoglobin 9.4 G/DL (12.0-16.0) L Hematocrit 31.0 % (37.0-47.0) L Mean Corpuscular Volume 81 FL (80-99) Mean Corpuscular Hemoglobin 24.3 PG (27.0-31.0) L Mean Corpuscular Hemoglobin Concent 30.2 G/DL (32.0-36.0) L Red Cell Distribution Width 17.3 % (11.6-14.8) H Platelet Count 393 K/UL (150-450) Mean Platelet Volume 8.8 FL (6.5-10.1) Neutrophils (%) (Auto) % (45.0-75.0) Lymphocytes (%) (Auto) % (20.0-45.0) Monocytes (%) (Auto) % (1.0-10.0) Eosinophils (%) (Auto) % (0.0-3.0) Basophils (%) (Auto) % (0.0-2.0) Differential Total Cells Counted 100 Neutrophils % (Manual) 82 % (45-75) H Lymphocytes % (Manual) 8 % (20-45) L Monocytes % (Manual) 7 % (1-10) Eosinophils % (Manual) 2 % (0-3) Basophils % (Manual) 1 % (0-2) Band Neutrophils 0 % (0-8) Platelet Estimate Adequate Platelet Morphology Normal Polychromasia 1+ Hypochromasia 1+ Anisocytosis 1+ Microcytosis 1+ D-Dimer 1.01 mg/L FEU (0.00-0.49) H Urine Color Yellow Urine Appearance Clear Urine pH 6.0 (4.5-8.0) Urine Specific [place] 1.005 (1.005-1.035) Urine Protein Negative (NEGATIVE) Urine Glucose (UA) Negative (NEGATIVE) Urine Ketones Negative (NEGATIVE) Urine Blood Negative (NEGATIVE) Urine Nitrite Negative (NEGATIVE) Urine Bilirubin Negative (NEGATIVE) Urine Urobilinogen Normal MG/DL (0.0-1.0) Urine Leukocyte Esterase Negative (NEGATIVE) Sodium Level 138 MMOL/L (136-145) Potassium Level 4.6 MMOL/L (3.5-5.1) Chloride Level 99 MMOL/L (98-107) Carbon Dioxide Level 31 MMOL/L (21-32) Anion Gap 8 mmol/L (5-15) Blood Urea Nitrogen 19 mg/dL (7-18) H Creatinine 0.7 MG/DL (0.55-1.30) Estimated Glomerular Filtration Rate > 60 mL/min (>60) Glucose Level 187 MG/DL (74-106) H Calcium Level 9.0 MG/DL (8.5-10.1) Total Bilirubin 0.5 MG/DL (0.2-1.0) Aspartate Amino Transferase (AST) 19 U/L (15-37) Alanine Aminotransferase (ALT) 17 U/L (12-78) Alkaline Phosphatase 116 U/L (46-116) Total Creatine Kinase 42 U/L (26-308) Creatine Kinase MB 2.5 NG/ML (0.0-3.6) Creatine Kinase MB Relative Index 5.9 Troponin I 0.094 ng/mL (0.000-0.056) Total Protein 6.9 G/DL (6.4-8.2) Albumin 2.4 G/DL (3.4-5.0) L Globulin 4.5 g/dL Albumin/Globulin Ratio 0.5 (1.0-2.7) L Microbiology Date/Time Source Procedure Growth Status 05/25/20 17:20 Nasopharynx SARS-CoV-2 RdRp Gene Assay - Final Complete EKG Diagnostic Results Rate: normal Rhythm: NSR ST Segments: no acute changes Other Impression bifascicular block: RBBB and LAFB Rhythm Strip Diag. Results EP Interpretation: yes Rate: 70's Rhythm: NSR, no PVC's, no ectopy Chest X-Ray Diagnostic Results Chest X-Ray Diagnostic Results : Chest X-Ray Ordered: Yes # of Views/Limited/Complete: 1 View Indication: Other EP Interpretation: Yes Interpretation: other - LLL opacity Impression: Other - LLL PNA Last Vital Signs Date Time Temp Pulse Resp B/P (MAP) Pulse Ox O2 Delivery O2 Flow Rate FiO2 05/25/20 16:49 98.2 80 18 138/74 (95) 98 T-piece 5.0 Status: improved Disposition: ADMITTED INPATIENT Condition: Serious Referrals: Fernie Martinez MD (PCP) Flor Anthony DO May 25, 2020 17:35
[2020-05-25 17:42] LABS: HEMOGLOBIN 9.4 G/DL (12.0-16.0); MEAN CORPUSCULAR VOLUME 81 FL (80-99); PLATELET COUNT 393 K/UL (150-450); RED BLOOD COUNT 3.85 M/UL (4.20-5.40); RED CELL DISTRIBUTION WIDTH 17.3 % (11.6-14.8)
[2020-05-25 17:43] LABS: WHITE BLOOD COUNT 33.9 K/UL (4.8-10.8)
[2020-05-25 17:46] LABS: ANION GAP 8 mmol/L (5-15); BLOOD UREA NITROGEN 19 mg/dL (7-18); CARBON DIOXIDE 31 MMOL/L (21-32); CHLORIDE 99 MMOL/L (98-107); CREATININE 0.7 MG/DL (0.55-1.30); POTASSIUM 4.6 MMOL/L (3.5-5.1); SODIUM 138 MMOL/L (136-145)
[2020-05-25 18:00] VITALS: BP 155/61
[2020-05-25 18:00] LABS: APPEARANCE,URINE CLEAR; COLOR,URINE YELLOW; KETONES,URINE NEGATIVE (NEGATIVE); PROTEIN,URINE NEGATIVE (NEGATIVE)
[2020-05-25 18:01] LABS: BILIRUBIN, URINE NEGATIVE (NEGATIVE); GLUCOSE, URINE (UA) NEGATIVE (NEGATIVE); LEUKOCYTE ESTERASE ,URINE NEGATIVE (NEGATIVE); NITRITE,URINE NEGATIVE (NEGATIVE); UROBILINOGEN,URINE NORMAL MG/DL (0.0-1.0)
[2020-05-25 18:15] LABS: ALANINE AMINOTRANSFERASE 17 U/L (12-78); ALBUMIN 2.4 G/DL (3.4-5.0); ALBUMIN/GLOBULIN RATIO 0.5 (1.0-2.7); ALKALINE PHOSPHATASE 116 U/L (46-116); ASPARTATE AMINO TRANSFERASE 19 U/L (15-37); BILIRUBIN,TOTAL 0.5 MG/DL (0.2-1.0); CKMB 2.5 NG/ML (0.0-3.6); CREATINE KINASE 42 U/L (26-308)
[2020-05-25 20:00] VITALS: BP 153/60
[2020-05-26] MEDS ORDERED: ACETAMINOP160 MG/5 M ORAL (00:46)
[2020-05-26] MEDS ORDERED: LISINOPRIL20 MG GT (00:46)
[2020-05-26] MEDS ORDERED: POTASSIUM CHLO20 ME1 GT (00:46)
[2020-05-26] MEDS: Cefepime HCl 2 GM in NS 110 ML IV SCH (02:27)
[2020-05-26 04:00] VITALS: BP 152/66
[2020-05-26 08:00] VITALS: BP 143/83
--- NOTE | 2020-05-26 08:28 | History & Physical ---
History and Physical History & Physicial HISTORY OF PRESENT ILLNESS: 74-year-old female who [facility]. Patient with chronic atrial fibrillation and is on anticoagulation. Patient was sent to the emergency room for evaluation of worsening leukocytosis. In the emergency room , she was cultured and started on antibiotics PAST MEDICAL HISTORY: Cerebrovascular accident, dementia, dysphagia, gastrostomy tube, atrial fibrillation, hypertension, and insulin-requiring diabetes mellitus. ALLERGIES: No allergies. MEDICATIONS: Reviewed and reconciled. FAMILY HISTORY: Not known. SOCIAL HISTORY: Not recorded. REVIEW OF SYSTEMS: unable. PHYSICAL EXAMINATION: NAD RESPIRATORY: moderate breath sounds CARDIAC: Irregularly irregular rhythm. Rapid rate. Normal S1, S2. no MRG ABDOMEN: Soft. G-tube intact. EXTREMITIES: Contractures. No edema. Labs Test 05/25/20 17:08 05/25/20 17:16 05/25/20 17:25 Lactic Acid Level 1.40 mmol/L (0.4-2.0) White Blood Count 33.9 K/UL (4.8-10.8) Red Blood Count 3.85 M/UL (4.20-5.40) Hemoglobin 9.4 G/DL (12.0-16.0) Hematocrit 31.0 % (37.0-47.0) Mean Corpuscular Volume 81 FL (80-99) Mean Corpuscular Hemoglobin 24.3 PG (27.0-31.0) Mean Corpuscular Hemoglobin Concent 30.2 G/DL (32.0-36.0) Red Cell Distribution Width 17.3 % (11.6-14.8) Platelet Count 393 K/UL (150-450) Mean Platelet Volume 8.8 FL (6.5-10.1) Neutrophils (%) (Auto) % (45.0-75.0) Lymphocytes (%) (Auto) % (20.0-45.0) Monocytes (%) (Auto) % (1.0-10.0) Eosinophils (%) (Auto) % (0.0-3.0) Basophils (%) (Auto) % (0.0-2.0) Differential Total Cells Counted 100 Neutrophils % (Manual) 82 % (45-75) Lymphocytes % (Manual) 8 % (20-45) Monocytes % (Manual) 7 % (1-10) Eosinophils % (Manual) 2 % (0-3) Basophils % (Manual) 1 % (0-2) Band Neutrophils 0 % (0-8) Platelet Estimate Adequate Platelet Morphology Normal Polychromasia 1+ Hypochromasia 1+ Anisocytosis 1+ Microcytosis 1+ D-Dimer 1.01 mg/L FEU (0.00-0.49) Urine Color Yellow Urine Appearance Clear Urine pH 6.0 (4.5-8.0) Urine Specific [place] 1.005 (1.005-1.035) Urine Protein Negative (NEGATIVE) Urine Glucose (UA) Negative (NEGATIVE) Urine Ketones Negative (NEGATIVE) Urine Blood Negative (NEGATIVE) Urine Nitrite Negative (NEGATIVE) Urine Bilirubin Negative (NEGATIVE) Urine Urobilinogen Normal MG/DL (0.0-1.0) Urine Leukocyte Esterase Negative (NEGATIVE) Sodium Level 138 MMOL/L (136-145) Potassium Level 4.6 MMOL/L (3.5-5.1) Chloride Level 99 MMOL/L (98-107) Carbon Dioxide Level 31 MMOL/L (21-32) Anion Gap 8 mmol/L (5-15) Blood Urea Nitrogen 19 mg/dL (7-18) Creatinine 0.7 MG/DL (0.55-1.30) Estimat Glomerular Filtration Rate > 60 mL/min (>60) Glucose Level 187 MG/DL (74-106) Calcium Level 9.0 MG/DL (8.5-10.1) Total Bilirubin 0.5 MG/DL (0.2-1.0) Aspartate Amino Transf (AST/SGOT) 19 U/L (15-37) Alanine Aminotransferase (ALT/SGPT) 17 U/L (12-78) Alkaline Phosphatase 116 U/L (46-116) Total Creatine Kinase 42 U/L (26-308) Creatine Kinase MB 2.5 NG/ML (0.0-3.6) Creatine Kinase MB Relative Index 5.9 Troponin I 0.094 ng/mL (0.000-0.056) Total Protein 6.9 G/DL (6.4-8.2) Albumin 2.4 G/DL (3.4-5.0) Globulin 4.5 g/dL Albumin/Globulin Ratio 0.5 (1.0-2.7) IMPRESSION leukocytosis sepsis Afib, chronic encephalopathy trach respiratory failure elevated troponin anemia PLAN Iv antibiotics ID respiratory care [facility] meds suction monitor cultures eliquis impression, plan, and exam edited and reviewed in detail care discussed with Fernie Ledezma MD May 26, 2020 08:28
[2020-05-26] MEDS ORDERED: Levofloxacin 750mg tab GT SCH (09:00)
[2020-05-26] MEDS ORDERED: Piperacillin/Tazobactam 3.375 GM in NS 110 ML IVPB SCH (09:00)
[2020-05-26] MEDS ORDERED: Heparin 5000 units/ml inj SUBQ SCH (09:00)
[2020-05-26 09:02] LABS: HEMATOCRIT 28.8 % (37.0-47.0); MEAN CORPUSCULAR VOLUME 79 FL (80-99); PLATELET COUNT 385 K/UL (150-450); RED BLOOD COUNT 3.65 M/UL (4.20-5.40); RED CELL DISTRIBUTION WIDTH 16.3 % (11.6-14.8); WHITE BLOOD COUNT 21.8 K/UL (4.8-10.8)
[2020-05-26] MEDS: Eliquis 5mg tablet GT SCH ×2 (10:04→17:57)
[2020-05-26] MEDS: Metoprolol Tartrate 50mg tab GT SCH ×2 (10:04→22:06)
[2020-05-26] MEDS: Furosemide 40mg tab GT SCH (10:04)
[2020-05-26] MEDS: Pantoprazole Inj IVP SCH (10:05)
[2020-05-26 10:10] LABS: ALANINE AMINOTRANSFERASE 15 U/L (12-78); ALBUMIN 2.4 G/DL (3.4-5.0); ALBUMIN/GLOBULIN RATIO 0.6 (1.0-2.7); ALKALINE PHOSPHATASE 91 U/L (46-116); ANION GAP 9 mmol/L (5-15); ASPARTATE AMINO TRANSFERASE 14 U/L (15-37); BILIRUBIN,TOTAL 0.6 MG/DL (0.2-1.0); BLOOD UREA NITROGEN 15 mg/dL (7-18); CALCIUM 8.7 MG/DL (8.5-10.1); CARBON DIOXIDE 28 MMOL/L (21-32); CHLORIDE 103 MMOL/L (98-107); CREATININE 0.5 MG/DL (0.55-1.30); POTASSIUM 4.3 MMOL/L (3.5-5.1); SODIUM 140 MMOL/L (136-145)
[2020-05-26] MEDS: Piperacillin/Tazobactam 3.375 GM in NS 110 ML IVPB SCH ×2 (10:15→17:57)
[2020-05-26] MEDS: Vancomycin 1.25gm/NS Premix q24h IVPB SCH (10:16)
[2020-05-26 12:00] VITALS: BP 131/61
[2020-05-26] MEDS: NovoLOG Insulin Flexpen SUBQ SCH ×2 (12:00→18:02)
--- NOTE | 2020-05-26 13:43 | Diagnostic Imaging Report ---
Indication: Shortness of breath Technique: One view of the chest Comparison: 05/18/2020 Findings: There is increasing left pleural effusion. The heart size is upper limits of normal. There is a tracheostomy. The right lung and pleural space are clear, previously demonstrated hazy right lung opacity having resolved. Impression: Increasing left pleural effusion Decreased hazy right lung opacity, may reflect improving pulmonary edema
[2020-05-26 16:00] VITALS: BP 140/81
--- NOTE | 2020-05-26 16:57 | Consultation ---
History of Present Illness General Date patient seen: May 26, 2020 Chief Complaint: Abnormal Labs Present Illness HPI This is a 74-year-old female well-known to me from a [facility] admission and care plan who was here prior for septic shock A. fib pneumonia on antibiotics sent back to the care facility in which she was recovering but noted to have worsening leukocytosis on antibiotics and was brought to [facility] for evaluation. Patient has history of PEG trach on support. When readmitted identified to have abnormal labs and worsening buttock sacral skin concerns. Surgery called to evaluate assist with care. Patient seen, patient evaluated, chart reviewed. Prior tracheostomy evaluation stable. Local care provided and will follow with recommendations thank you Allergies: Coded Allergies: No Known Allergies (Unverified , 05/15/20) Medication History Scheduled Acetaminophen 160MG/5ML* (Acetaminophen*), 20 ML GT DAILY, (Reported) Acetaminophen 160MG/5ML* (Acetaminophen*), 20 ML ORAL DAILY, (Reported) Apixaban (Eliquis), 5 MG GT BID, (Reported) Apixaban (Eliquis), 5 MG GT BID, (Reported) Carvedilol* (Carvedilol*), 3.125 MG GT BID, (Reported) Digoxin* (Digoxin*), 0.125 MG ORAL DAILY, (Reported) Furosemide* (Lasix*), 40 MG ORAL DAILY, (Reported) Insulin Glargine (Lantus), 28 UNIT SUBQ BID, (Reported) Lansoprazole* (Lansoprazole*), 30 MG GT BID, (Reported) Levofloxacin* (Levaquin*), 750 MG ORAL DAILY, (Reported) Lisinopril (Lisinopril*), 20 MG ORAL DAILY, (Reported) Lisinopril (Lisinopril*), 20 MG ORAL BID, (Reported) Metoprolol Tartrate* (Metoprolol Tartrate*), 50 MG ORAL EVERY 12 HOURS, ( Reported) Modafinil* (Provigil), 200 MG GT DAILY, (Reported) Potassium Chloride* (K-Dur*), 40 MEQ GT TWICE A DAY, (Reported) Scheduled PRN Acetaminophen* (Tylenol*), 650 MG GT Q4H PRN for For Pain, (Reported) Insulin Lispro (Insulin Lispro), 100 UNIT SQ for Sliding Scale, (Reported) Miscellaneous Medications Insulin Lispro (Insulin Lispro), 100 UNIT SQ, (Reported) Patient History Limited by: medical condition History Provided By: Medical Record, PMD Healthcare decision maker Resuscitation status Advanced Directive on File Past Medical/Surgical History Past Medical/Surgical History: (1) Encounter for generalized patient complaints (2) Anemia (3) Sepsis (4) Elevated troponin (5) Pneumonia Review of Systems ROS Narrative Unable to obtain from patient given medical condition Physical Exam General Appearance: no apparent distress, alert Lines, tubes and drains: PICC, other HEENT: atraumatic, anicteric, mucous membranes moist, PERRL Neck: normal alignment, trach Respiratory/Chest: chest wall non-tender, no respiratory distress, no accessory muscle use, decreased breath sounds Cardiovascular/Chest: no JVD, arrhythmia, other Abdomen: non tender, soft, no organomegaly, no mass, feeding tube Genitourinary/Rectal: normal rectal exam Extremities: normal inspection, no calf tenderness, slow capillary refill, other Skin Exam: warm/dry Neurologic: unresponsiveness Last 24 Hour Vital Signs Date Time Temp Pulse Resp B/P (MAP) Pulse Ox O2 Delivery O2 Flow Rate FiO2 05/26/20 13:22 100 Cool Aerosol 8.0 35 05/26/20 12:00 91 05/26/20 12:00 97.7 91 19 131/61 (84) 99 05/26/20 10:04 84 143/83 05/26/20 09:00 Trach Collar 5.0 05/26/20 08:00 82 05/26/20 08:00 96.8 84 18 143/83 (103) 100 05/26/20 07:26 100 Cool Aerosol 8.0 35 05/26/20 04:00 97.3 86 19 152/66 (94) 100 05/26/20 04:00 78 05/26/20 01:30 T-Piece 8.0 05/26/20 01:15 99 T-Piece 8.0 35 05/25/20 23:45 82 05/25/20 23:17 98.2 89 16 147/65 100 T-piece 5.0 05/25/20 20:00 98.2 77 19 153/60 100 T-piece 5.0 05/25/20 19:30 100 T-Piece 5.0 05/25/20 18:00 98.2 75 16 155/61 100 T-piece 5.0 05/25/20 16:54 98.2 80 18 138/74 98 T-piece 5.0 Intake and Output 05/25/20 05/26/20 19:00 07:00 Intake Total 1385 ml 1385 ml Output Total 500 ml Balance 1385 ml 885 ml Intake IV Total 1385 ml 1385 ml Output Urine Total 500 ml # Bowel Movements 3 Laboratory Tests Test 05/25/20 17:08 05/25/20 17:16 05/25/20 17:25 05/26/20 08:10 Lactic Acid Level 1.40 mmol/L (0.4-2.0) White Blood Count 33.9 K/UL (4.8-10.8) *H 21.8 K/UL (4.8-10.8) H Red Blood Count 3.85 M/UL (4.20-5.40) L 3.65 M/UL (4.20-5.40) L Hemoglobin 9.4 G/DL (12.0-16.0) L 9.0 G/DL (12.0-16.0) L Hematocrit 31.0 % (37.0-47.0) L 28.8 % (37.0-47.0) L Mean Corpuscular Volume 81 FL (80-99) 79 FL (80-99) L Mean Corpuscular Hemoglobin 24.3 PG (27.0-31.0) L 24.6 PG (27.0-31.0) L Mean Corpuscular Hemoglobin Concent 30.2 G/DL (32.0-36.0) L 31.1 G/DL (32.0-36.0) L Red Cell Distribution Width 17.3 % (11.6-14.8) H 16.3 % (11.6-14.8) H Platelet Count 393 K/UL (150-450) 385 K/UL (150-450) Mean Platelet Volume 8.8 FL (6.5-10.1) 7.9 FL (6.5-10.1) Neutrophils (%) (Auto) % (45.0-75.0) % (45.0-75.0) Lymphocytes (%) (Auto) % (20.0-45.0) % (20.0-45.0) Monocytes (%) (Auto) % (1.0-10.0) % (1.0-10.0) Eosinophils (%) (Auto) % (0.0-3.0) % (0.0-3.0) Basophils (%) (Auto) % (0.0-2.0) % (0.0-2.0) Differential Total Cells Counted 100 100 Neutrophils % (Manual) 82 % (45-75) H 86 % (45-75) H Lymphocytes % (Manual) 8 % (20-45) L 3 % (20-45) L Monocytes % (Manual) 7 % (1-10) 6 % (1-10) Eosinophils % (Manual) 2 % (0-3) 1 % (0-3) Basophils % (Manual) 1 % (0-2) 4 % (0-2) H Band Neutrophils 0 % (0-8) 0 % (0-8) Platelet Estimate Adequate Adequate Platelet Morphology Normal Normal Polychromasia 1+ Hypochromasia 1+ 2+ Anisocytosis 1+ 1+ Microcytosis 1+ 1+ D-Dimer 1.01 mg/L FEU (0.00-0.49) H Urine Color Yellow Urine Appearance Clear Urine pH 6.0 (4.5-8.0) Urine Specific [place] 1.005 (1.005-1.035) Urine Protein Negative (NEGATIVE) Urine Glucose (UA) Negative (NEGATIVE) Urine Ketones Negative (NEGATIVE) Urine Blood Negative (NEGATIVE) Urine Nitrite Negative (NEGATIVE) Urine Bilirubin Negative (NEGATIVE) Urine Urobilinogen Normal MG/DL (0.0-1.0) Urine Leukocyte Esterase Negative (NEGATIVE) Sodium Level 138 MMOL/L (136-145) 140 MMOL/L (136-145) Potassium Level 4.6 MMOL/L (3.5-5.1) 4.3 MMOL/L (3.5-5.1) Chloride Level 99 MMOL/L (98-107) 103 MMOL/L (98-107) Carbon Dioxide Level 31 MMOL/L (21-32) 28 MMOL/L (21-32) Anion Gap 8 mmol/L (5-15) 9 mmol/L (5-15) Blood Urea Nitrogen 19 mg/dL (7-18) H 15 mg/dL (7-18) Creatinine 0.7 MG/DL (0.55-1.30) 0.5 MG/DL (0.55-1.30) L Estimat Glomerular Filtration Rate > 60 mL/min (>60) > 60 mL/min (>60) Glucose Level 187 MG/DL (74-106) H 109 MG/DL (74-106) H Calcium Level 9.0 MG/DL (8.5-10.1) 8.7 MG/DL (8.5-10.1) Total Bilirubin 0.5 MG/DL (0.2-1.0) 0.6 MG/DL (0.2-1.0) Aspartate Amino Transf (AST/SGOT) 19 U/L (15-37) 14 U/L (15-37) L Alanine Aminotransferase (ALT/SGPT) 17 U/L (12-78) 15 U/L (12-78) Alkaline Phosphatase 116 U/L (46-116) 91 U/L (46-116) Total Creatine Kinase 42 U/L (26-308) Creatine Kinase MB 2.5 NG/ML (0.0-3.6) Creatine Kinase MB Relative Index 5.9 Troponin I 0.094 ng/mL (0.000-0.056) 0.083 ng/mL (0.000-0.056) Total Protein 6.9 G/DL (6.4-8.2) 6.3 G/DL (6.4-8.2) L Albumin 2.4 G/DL (3.4-5.0) L 2.4 G/DL (3.4-5.0) L Globulin 4.5 g/dL 3.9 g/dL Albumin/Globulin Ratio 0.5 (1.0-2.7) L 0.6 (1.0-2.7) L Stomatocytes Occasional Magnesium Level 1.7 MG/DL (1.8-2.4) L Pro-B-Type Natriuretic Peptide 3971 pg/mL (0-125) H Test 05/26/20 12:00 05/26/20 16:00 POC Whole Blood Glucose 155 MG/DL (74-106) H Troponin I Pending Microbiology Date/Time Source Procedure Growth Status 05/25/20 17:20 Nasopharynx SARS-CoV-2 RdRp Gene Assay - Final Complete Height (Feet): 5 Height (Inches): 3.00 Weight (Pounds): 163 Medications Current Medications Medications (Trade) Dose Ordered Sig/Cayden Route PRN Reason Start Time Stop Time Status Last Admin Dose Admin Acetaminophen (Tylenol) 650 mg Q4H PRN GT Pain 05/26/20 07:45 06/25/20 07:44 Apixaban (Eliquis) 5 mg BID GT 05/26/20 09:00 08/24/20 08:59 05/26/20 10:04 Dextrose (Dextrose 50%) 25 ml Q30M PRN IV Hypoglycemia 05/26/20 07:30 08/24/20 07:29 Dextrose (Dextrose 50%) 50 ml Q30M PRN IV Hypoglycemia 05/26/20 07:30 08/24/20 07:29 Furosemide (Lasix) 40 mg DAILY GT 05/26/20 09:00 06/25/20 08:59 05/26/20 10:04 Insulin Aspart (NovoLOG) Q6HR SUBQ 05/26/20 12:00 08/24/20 11:59 05/26/20 12:00 Levofloxacin (Levaquin) 750 mg Q48H GT 05/28/20 09:00 06/04/20 08:59 Metoprolol Tartrate (Lopressor) 50 mg EVERY 12 HOURS GT 05/26/20 09:00 08/24/20 08:59 05/26/20 10:04 Pantoprazole (Protonix) 40 mg DAILY IVP 05/26/20 09:00 06/25/20 08:59 05/26/20 10:05 Piperacillin Sod/ Tazobactam Sod 3.375 gm/Sodium Chloride 110 ml @ 27.5 mls/hr Q8H IVPB 05/26/20 10:00 06/02/20 09:59 05/26/20 10:15 Vancomycin HCl (Vanco pharmacy to dose) 1 ea DAILY PRN MISC Per rx protocol 05/26/20 07:00 06/25/20 06:59 Vancomycin/Sodium Chloride 275 ml @ 183.333 mls/hr Q24H IVPB 05/26/20 09:00 05/31/20 08:59 05/26/20 10:16 Assessment/Plan Problem List: (1) Anemia ICD Codes: D64.9 - Anemia, unspecified SNOMED: 588433972 (2) Sepsis Assessment & Plan: 74-year-old female with medical comorbidities present with leukocytosis anemia abnormal labs hypoalbuminemia failure to thrive malnutrition worsening decubitus ulcer admitted further care and management was prior on vancomycin now on IV antibiotics admitted and under monitoring. Full evaluation does not at the bedside and evaluation performed. Trach stable PEG tube stable skin deteriorating per her turgor worsening decubitus ulcer malnutrition continue tube feeds as tolerated continue antibiotics wounds unlikely etiology of patient's sepsis we will monitor and follow with recommendations trend labs thank you for letting participate patient's care ICD Codes: A41.9 - Sepsis, unspecified organism SNOMED: 74032043, 139037259, 910698485 (3) Elevated troponin ICD Codes: R79.89 - Other specified abnormal findings of blood chemistry SNOMED: 525023126, 144855797, 783160603 (4) Pneumonia ICD Codes: J18.9 - Pneumonia, unspecified organism SNOMED: 036038662, 937052472, 614046333 (5) Encounter for generalized patient complaints ICD Codes: Z00.8 - Encounter for other general examination SNOMED: 263464384 (6) Decubitus skin ulcer Assessment & Plan: Patient presented on admission with an Unstageable Sacral Pressure injury(L)9.8cm x (W)6.7cm. Base of wound is 80% necrotic ,20% mixed slough ,beefy red. Small amt serous exudate. Mild odor noted. Borders are macerated with surrounding maroon and indurated borders. MASD noted to Mons-pubis outer aspects of R and L buttocks. Perineum and bilat ischial tuberosities. Affected areas mentioned are erythematous, macerated with scattered satellite lesions. Non-Blanchable erythema without induration or fluctuance R and L Heels. Skin assessed under tracheal collar and no evidence of skin breakdown noted. Assessed pt and necrotic base of Sacral wound crosshatched by Md. Pineda.Plan: Cleanse Sacral wound with Saline. Apply TheraHoney. Apply Moisture Barrier Paste periwound. Cover with Optifoam Drsg. Change Daily and prn. Apply Moisture Barrier Paste to Mons Pubis, Perineum and buttocks with each Incontinence care. Apply Cavilon Skin Barrier to Both heels and Malleoli. Cover each site with Optifoam Drsg. Change every 7 days and prn. Reposition at least every 2hours or as tolerated. Off-load heels with Pillow. Reposition at least every 2hours or as tolerated. APM/DANIEL mattress overlay. ICD Codes: L89.90 - Pressure ulcer of unspecified site, unspecified stage SNOMED: 620161084 Adrian Gar May 26, 2020 16:57
[2020-05-26] MEDS ORDERED: ZINC SULFATE220 M1 GT (18:34)
[2020-05-26] MEDS ORDERED: DOCUSATE SODIU100 MG GT (18:34)
[2020-05-26] MEDS ORDERED: ASCORBIC ACID500 MG GT (18:34)
[2020-05-26] MEDS ORDERED: PROMOD946 ML GT (18:34)
[2020-05-26] MEDS ORDERED: MULTI-DELYN237 ML GT (18:34)
[2020-05-26] MEDS ORDERED: FERROUS SU300 MG/52 GT (18:34)
[2020-05-26] MEDS ORDERED: DIGOXIN125 MCG GT (18:34)
[2020-05-26 20:00] VITALS: BP 154/95
[2020-05-27] VITALS: BP 159/69
[2020-05-27] MEDS: NovoLOG Insulin Flexpen SUBQ SCH ×4 (00:56→17:30)
[2020-05-27] MEDS: Piperacillin/Tazobactam 3.375 GM in NS 110 ML IVPB SCH ×3 (02:17→17:19)
--- NOTE | 2020-05-27 02:51 | Cardiology Progress Note ---
Subjective DATE OF SERVICE: May 26, 2020 On T-collar Moderate secretions Monitor: sinus with frequent atrial ectopics Troponin level decreased from 0.094 to 0.083 Objective Last 24 Hour Vital Signs Date Time Temp Pulse Resp B/P (MAP) Pulse Ox O2 Delivery O2 Flow Rate FiO2 05/27/20 01:44 99 Cool Aerosol 8.0 35 05/27/20 00:00 99.0 78 20 159/69 (99) 100 05/27/20 00:00 78 05/26/20 22:06 88 154/95 05/26/20 21:34 100 Cool Aerosol 8.0 35 05/26/20 21:00 Trach Collar 5.0 05/26/20 20:00 88 05/26/20 20:00 100.1 88 20 154/95 (114) 100 05/26/20 16:00 81 05/26/20 16:00 96.8 84 20 140/81 (100) 100 05/26/20 13:22 100 Cool Aerosol 8.0 35 05/26/20 12:00 91 05/26/20 12:00 97.7 91 19 131/61 (84) 99 05/26/20 10:04 84 143/83 05/26/20 09:00 Trach Collar 5.0 05/26/20 08:00 82 05/26/20 08:00 96.8 84 18 143/83 (103) 100 05/26/20 07:26 100 Cool Aerosol 8.0 35 05/26/20 04:00 97.3 86 19 152/66 (94) 100 05/26/20 04:00 78 ROS: no change from my assessment of 05/25/20 - remains unobtainable from patient HEENT: normal ENT inspection, Thick Trach secretions RHYTHM: NSR, PACs LUNGS: diminished breath sounds - left, bilateral rhonchi CARDIAC: normal rate, regular rhythm, normal S1 and S2 ABDOMEN: normal bowel sounds, non tender, soft, G-Tube intact EXTREMITIES: trace edema, other - sacral decub. noncommunicative Laboratory Tests Test 05/26/20 08:10 05/26/20 12:00 05/26/20 16:00 05/26/20 17:25 White Blood Count 21.8 K/UL (4.8-10.8) H Red Blood Count 3.65 M/UL (4.20-5.40) L Hemoglobin 9.0 G/DL (12.0-16.0) L Hematocrit 28.8 % (37.0-47.0) L Mean Corpuscular Volume 79 FL (80-99) L Mean Corpuscular Hemoglobin 24.6 PG (27.0-31.0) L Mean Corpuscular Hemoglobin Concent 31.1 G/DL (32.0-36.0) L Red Cell Distribution Width 16.3 % (11.6-14.8) H Platelet Count 385 K/UL (150-450) Mean Platelet Volume 7.9 FL (6.5-10.1) Neutrophils (%) (Auto) % (45.0-75.0) Lymphocytes (%) (Auto) % (20.0-45.0) Monocytes (%) (Auto) % (1.0-10.0) Eosinophils (%) (Auto) % (0.0-3.0) Basophils (%) (Auto) % (0.0-2.0) Differential Total Cells Counted 100 Neutrophils % (Manual) 86 % (45-75) H Lymphocytes % (Manual) 3 % (20-45) L Monocytes % (Manual) 6 % (1-10) Eosinophils % (Manual) 1 % (0-3) Basophils % (Manual) 4 % (0-2) H Band Neutrophils 0 % (0-8) Platelet Estimate Adequate Platelet Morphology Normal Hypochromasia 2+ Anisocytosis 1+ Microcytosis 1+ Stomatocytes Occasional Sodium Level 140 MMOL/L (136-145) Potassium Level 4.3 MMOL/L (3.5-5.1) Chloride Level 103 MMOL/L (98-107) Carbon Dioxide Level 28 MMOL/L (21-32) Anion Gap 9 mmol/L (5-15) Blood Urea Nitrogen 15 mg/dL (7-18) Creatinine 0.5 MG/DL (0.55-1.30) L Estimat Glomerular Filtration Rate > 60 mL/min (>60) Glucose Level 109 MG/DL (74-106) H Calcium Level 8.7 MG/DL (8.5-10.1) Magnesium Level 1.7 MG/DL (1.8-2.4) L Total Bilirubin 0.6 MG/DL (0.2-1.0) Aspartate Amino Transf (AST/SGOT) 14 U/L (15-37) L Alanine Aminotransferase (ALT/SGPT) 15 U/L (12-78) Alkaline Phosphatase 91 U/L (46-116) Troponin I 0.083 ng/mL (0.000-0.056) 0.096 ng/mL (0.000-0.056) Pro-B-Type Natriuretic Peptide 3971 pg/mL (0-125) H Total Protein 6.3 G/DL (6.4-8.2) L Albumin 2.4 G/DL (3.4-5.0) L Globulin 3.9 g/dL Albumin/Globulin Ratio 0.6 (1.0-2.7) L POC Whole Blood Glucose 155 MG/DL (74-106) H Pending Test 05/27/20 00:30 05/27/20 00:31 Troponin I 0.090 ng/mL (0.000-0.056) POC Whole Blood Glucose 184 MG/DL (74-106) H Microbiology Date/Time Source Procedure Growth Status 05/25/20 17:16 Blood Blood Culture - Preliminary NO GROWTH AFTER 24 HOURS Resulted 05/25/20 17:00 Blood Blood Culture - Preliminary NO GROWTH AFTER 24 HOURS Resulted 05/25/20 17:20 Nasopharynx SARS-CoV-2 RdRp Gene Assay - Final Complete 05/25/20 00:00 Rectum Ordered Assessment/Plan Assessment/Plan Healthcare associated PNA Acute myocardial ischemia with possible NSTE myocardial infarction Sepsis Respiratory failure Hypertension/HHDChronic diastolic CHF Parox AFib Conduction system disease with bifasc block Resp Rx Antimicrobials playground monitor Adjust IVF Full anticoagulation Titrate CV regimen based on clinical parameters John Heard MD May 27, 2020 02:51
[2020-05-27 04:00] VITALS: BP 152/74
--- NOTE | 2020-05-27 04:45 | Consultation ---
DATE OF CONSULTATION: 05/25/2020 CARDIOLOGY CONSULTATION CONSULTING PHYSICIAN: John Heard MD REQUESTING PHYSICIAN: Fernie Martinez MD REASON FOR CONSULTATION: Elevated troponin level. HISTORY OF PRESENT ILLNESS: This 74-year-old female [facility] and was recently hospitalized here for sepsis with shock. She has tracheostomy and G-tube for nutrition. She has significant underlying cardiovascular disease and she presented with signs of new infection and an elevated troponin level. As a result, Cardiology consultation has been requested. The patient is unable to give any historical data. Twenty minutes time spent reviewing hospital records and prison chart. The patient has advanced dementia. PAST MEDICAL HISTORY: Cerebrovascular disease, dementia, dysphagia with gastrostomy tube, decubitus, respiratory failure with tracheostomy, paroxysmal atrial fibrillation, hypertensive heart disease, diastolic congestive heart failure, and protein-calorie malnutrition. ALLERGIES: None known. MEDICATIONS: Reviewed and reconciled. SOCIAL HISTORY: No record of prior smoking, alcohol, or substance abuse. FAMILY HISTORY: Noncontributory. REVIEW OF SYSTEMS: Obviously not obtainable in this patient's condition; however, as stated above, records are reviewed and pertinent data outlined above. PHYSICAL EXAMINATION: VITAL SIGNS: Blood pressure 155/61, heart rate 75, respiratory rate 16, temperature 98.2. The patient is on a trach collar, saturating 100%. HEENT: Temporal wasting. Trach secretions are thick and yellow. LUNGS: Bilateral rhonchi. CARDIAC: Irregularly irregular rhythm. Normal S1, S2. ABDOMEN: Soft. G-tube intact. EXTREMITIES: Trace edema. LABORATORY AND DIAGNOSTIC DATA: Chest x-ray revealed left-sided pleural effusion, slightly increased from prior studies. Laboratory results, white count 33.9, hemoglobin 9.4, platelet count normal. Sodium 138, potassium 4.6, bicarb 31, BUN 19, creatinine 0.7. Albumin 2.4. Troponin 0.094. Electrocardiogram is reviewed by me and interpreted; findings notable for sinus rhythm, atrial ectopy, nonspecific ST change, right bundle and left anterior superior hemiblocks. IMPRESSION: 1. Profound sepsis. 2. Leukocytosis. 3. Possible healthcare-acquired pneumonia. 4. Respiratory failure with trach. 5. Decubitus with possible osteomyelitis. 6. 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 7. Paroxysmal atrial fibrillation, on chronic anticoagulation. 8. Chronic diastolic congestive heart failure. 9. Cerebrovascular disease with dementia. 10. [id number] myocardial infarction. PLAN: 1. Panculture. 2. Antimicrobials. 3. Respiratory hygiene. 4. Continue full anticoagulation. 5. Maintain beta-pietro and titrate antianginals. 6. Respiratory hygiene. 7. Serial troponin level. 8. Monitor volume status. 9. Diuresis based on clinical parameters. John Heard M.D. DR: Luis JOB#: [id number] CC:
[2020-05-27 06:24] LABS: BASOPHILS % (AUTO) 0.4 % (0.0-2.0); EOSINOPHILS % (AUTO) 2.4 % (0.0-3.0); HEMATOCRIT 29.9 % (37.0-47.0); HEMOGLOBIN 9.3 G/DL (12.0-16.0); LYMPHOCYTES % (AUTO) 9.1 % (20.0-45.0); MEAN CORPUSCULAR VOLUME 79 FL (80-99); NEUTROPHILS % (AUTO) 82.1 % (45.0-75.0); PLATELET COUNT 409 K/UL (150-450); RED BLOOD COUNT 3.77 M/UL (4.20-5.40); WHITE BLOOD COUNT 17.9 K/UL (4.8-10.8)
[2020-05-27 06:37] LABS: ANION GAP 11 mmol/L (5-15); BLOOD UREA NITROGEN 15 mg/dL (7-18); CARBON DIOXIDE 29 MMOL/L (21-32); CHLORIDE 101 MMOL/L (98-107); CREATININE 0.7 MG/DL (0.55-1.30); POTASSIUM 3.7 MMOL/L (3.5-5.1); SODIUM 140 MMOL/L (136-145)
[2020-05-27 06:42] LABS: CHOLESTEROL 128 MG/DL (< 200); HDL CHOLESTEROL 51 MG/DL (40-60); TRIGLYCERIDES 86 MG/DL (30-150)
[2020-05-27 08:00] VITALS: BP 142/74
[2020-05-27] MEDS: Eliquis 5mg tablet GT SCH ×2 (08:18→17:19)
[2020-05-27] MEDS: Furosemide 40mg tab GT SCH (08:18)
[2020-05-27] MEDS: Metoprolol Tartrate 50mg tab GT SCH ×2 (08:18→20:13)
[2020-05-27] MEDS: Pantoprazole Inj IVP SCH (08:19)
[2020-05-27] MEDS: Vancomycin 1.25gm/NS Premix q24h IVPB SCH (08:20)
--- NOTE | 2020-05-27 08:50 | Pulmonology Progress Note ---
Subjective Allergies: Coded Allergies: No Known Allergies (Unverified , 05/15/20) Subjective care noted wbc better Objective Last 24 Hour Vital Signs Date Time Temp Pulse Resp B/P (MAP) Pulse Ox O2 Delivery O2 Flow Rate FiO2 05/27/20 08:27 98 Cool Aerosol 8.0 35 05/27/20 08:18 83 142/74 05/27/20 08:00 98.7 83 18 142/74 (96) 100 05/27/20 04:00 81 05/27/20 04:00 98.8 80 20 152/74 (100) 100 05/27/20 01:44 99 Cool Aerosol 8.0 35 05/27/20 00:00 99.0 78 20 159/69 (99) 100 05/27/20 00:00 78 05/26/20 22:06 88 154/95 05/26/20 21:34 100 Cool Aerosol 8.0 35 05/26/20 21:00 Trach Collar 5.0 05/26/20 20:00 88 05/26/20 20:00 100.1 88 20 154/95 (114) 100 05/26/20 16:00 81 05/26/20 16:00 96.8 84 20 140/81 (100) 100 05/26/20 13:22 100 Cool Aerosol 8.0 35 05/26/20 12:00 91 05/26/20 12:00 97.7 91 19 131/61 (84) 99 05/26/20 10:04 84 143/83 05/26/20 09:00 Trach Collar 5.0 Intake and Output 05/26/20 05/27/20 19:00 07:00 Intake Total 577.5 ml 129.7 ml Output Total 900 ml Balance 577.5 ml -770.3 ml Intake IV Total 27.5 ml 129.7 ml Tube Feeding 550 ml Output Urine Total 900 ml # Voids 1 # Bowel Movements 1 Objective WDWN NAD trach clear breath sounds bilaterally without rhonchi or wheeze [id number] without MRG NABS nontender GT no CCE withdrawn Microbiology Date/Time Source Procedure Growth Status 05/25/20 17:16 Blood Blood Culture - Preliminary Resulted 05/25/20 17:00 Blood Blood Culture - Preliminary Resulted 05/25/20 17:20 Nasopharynx SARS-CoV-2 RdRp Gene Assay - Final Complete 05/25/20 00:00 Rectum Ordered Laboratory Tests 05/26/20 12:00: POC Whole Blood Glucose 155H 05/26/20 16:00: Troponin I 0.096H 05/26/20 17:25: POC Whole Blood Glucose [Pending] 05/27/20 00:30: Troponin I 0.090H 05/27/20 00:31: POC Whole Blood Glucose 184H 05/27/20 05:14: POC Whole Blood Glucose [Pending] 05/27/20 06:10: White Blood Count 17.9H, Red Blood Count 3.77L, Hemoglobin 9.3L, Hematocrit 29.9L, Mean Corpuscular Volume 79L, Mean Corpuscular Hemoglobin 24.8L, Mean Corpuscular Hemoglobin Concent 31.3L, Red Cell Distribution Width 16.0H, Platelet Count 409, Mean Platelet Volume 7.5, Neutrophils (%) (Auto) 82.1H, Lymphocytes (%) (Auto) 9.1L, Monocytes (%) (Auto) 6.0, Eosinophils (%) (Auto) 2.4, Basophils (%) (Auto) 0.4, Sodium Level 140, Potassium Level 3.7, Chloride Level 101, Carbon Dioxide Level 29, Anion Gap 11, Blood Urea Nitrogen 15, Creatinine 0.7, Estimat Glomerular Filtration Rate > 60, Glucose Level 151H, Calcium Level 9.0, Troponin I 0.087H, Triglycerides Level 86, Cholesterol Level 128, LDL Cholesterol 62, HDL Cholesterol 51, Cholesterol/HDL Ratio 2.5L Current Medications Medications (Trade) Dose Ordered Sig/Cayden Route PRN Reason Start Time Stop Time Status Last Admin Dose Admin Acetaminophen (Tylenol) 650 mg Q4H PRN GT Pain 05/26/20 07:45 06/25/20 07:44 Apixaban (Eliquis) 5 mg BID GT 05/26/20 09:00 08/24/20 08:59 05/27/20 08:18 Dextrose (Dextrose 50%) 25 ml Q30M PRN IV Hypoglycemia 05/26/20 07:30 08/24/20 07:29 Dextrose (Dextrose 50%) 50 ml Q30M PRN IV Hypoglycemia 05/26/20 07:30 08/24/20 07:29 Furosemide (Lasix) 40 mg DAILY GT 05/26/20 09:00 06/25/20 08:59 05/27/20 08:18 Insulin Aspart (NovoLOG) Q6HR SUBQ 05/26/20 12:00 08/24/20 11:59 05/27/20 05:16 Levofloxacin (Levaquin) 750 mg Q48H GT 05/28/20 09:00 06/04/20 08:59 Metoprolol Tartrate (Lopressor) 50 mg EVERY 12 HOURS GT 05/26/20 09:00 08/24/20 08:59 05/27/20 08:18 Pantoprazole (Protonix) 40 mg DAILY IVP 05/26/20 09:00 06/25/20 08:59 05/27/20 08:19 Piperacillin Sod/ Tazobactam Sod 3.375 gm/Sodium Chloride 110 ml @ 27.5 mls/hr Q8H IVPB 05/26/20 10:00 06/02/20 09:59 05/27/20 02:17 Vancomycin HCl (Vanco pharmacy to dose) 1 ea DAILY PRN MISC Per rx protocol 05/26/20 07:00 06/25/20 06:59 Vancomycin/Sodium Chloride 275 ml @ 183.333 mls/hr Q24H IVPB 05/26/20 09:00 05/31/20 08:59 05/27/20 08:20 Assessment/Plan Assessment/Plan IMPRESSION leukocytosis sepsis Afib, chronic encephalopathy trach respiratory failure elevated troponin anemia PLAN Iv antibiotics ID respiratory care snf meds suction monitor cultures eliquis card follow up impression, plan, and exam edited and reviewed in detail care discussed with Fernie Ledezma MD May 27, 2020 08:50
[2020-05-27 11:54] VITALS: BP 148/64
--- NOTE | 2020-05-27 11:59 | Consultation ---
DATE OF CONSULTATION: 05/27/2020 INFECTIOUS DISEASE CONSULTATION CONSULTING PHYSICIAN: Mina Salamanca MD. REFERRING PHYSICIAN: Fernie Martinez MD. REASON FOR CONSULTATION: Leukocytosis. HISTORY OF PRESENTING ILLNESS: This is a 74-year-old lady with history of hypertension, atrial fibrillation, diabetes, CVA, dementia, and dysphagia, status post G-tube placement, who comes in with worsening leukocytosis. She was found to have pneumonia, and an Infectious Disease consultation has been obtained for antibiotics. PAST MEDICAL HISTORY: 1. History of diabetes. 2. Hypertension. 3. Atrial fibrillation. 4. CVA. 5. Dementia. 6. Dysphagia, status post G-tube placement. SOCIAL HISTORY: Unknown. FAMILY HISTORY: Unknown. REVIEW OF SYSTEMS: Unable to obtain currently. MEDICATIONS: As an inpatient, she is on Levaquin, insulin, Zosyn, Eliquis, Lasix, metoprolol, Protonix, IV vancomycin, and Tylenol. ALLERGIES: No known drug allergies. PHYSICAL EXAMINATION: VITAL SIGNS: Temperature 98.7, T-max of 100.1, pulse 83, respiratory rate 18, and blood pressure 142/74. O2 saturation of 98%. HEENT: Pupils are equally reactive to light and accommodation. NECK: Tracheostomy site appears clean CARDIOVASCULAR: Regular rate and rhythm. No murmurs. LUNGS: Clear to auscultation bilaterally. No crackles. No wheezes. ABDOMEN: Soft, nontender. G-tube site appears clean. EXTREMITIES: No cyanosis, no clubbing, no edema. LABORATORY AND DIAGNOSTIC DATA: White count of 33 on 05/25/2020, white count of 17.9 on 05/27/2020; hemoglobin 9.3; hematocrit 29.9; MCV 79; platelet count of 409,000. Sodium 140, potassium 3.7, chloride 101, bicarb 29, BUN 15, creatinine 0.7. Glucose 151. Calcium 9. Troponin 0.087. Cholesterol of 128. UA is showing LE negative. Blood cultures from 05/25/2020 showing gram-positive cocci in clusters. COVID-19 test is negative. Chest x-ray is showing increasing left-sided pleural effusion, decreased hazy right lung opacity may left reflect improving pulmonary edema. ASSESSMENT: This is a 74-year-old lady with history of diabetes, hypertension, atrial fibrillation, dementia, and CVA, who comes in with worsening leukocytosis and is found to have, 1. Gram-positive sepsis. 2. She could also possibly have an aspiration pneumonia. 3. Leukocytosis is improving. 4. Diabetes. 5. Hypertension. 6. CVA. 7. Dementia. 8. COVID-19 test was negative. PLAN: 1. Continue IV vancomycin and Zosyn. 2. We will order sputum for Gram stain and culture. 3. Discontinue Levaquin. 4. We will follow up cultures and adjust antibiotics accordingly. I would like to thank Dr. Martinez for this consultation. Mina Salamanca M.D. DR: FLACO JOB#: [id number] CC:
--- NOTE | 2020-05-27 13:19 | Surgery Progress Note ---
Surgery Progress Note Subjective Additional Comments add vit c exam stable no acute events Objective Last 24 Hour Vital Signs Date Time Temp Pulse Resp B/P (MAP) Pulse Ox O2 Delivery O2 Flow Rate FiO2 05/27/20 12:00 79 05/27/20 11:54 98.8 83 19 148/64 (92) 100 05/27/20 09:00 Trach Collar 8.0 05/27/20 08:27 98 Cool Aerosol 8.0 35 05/27/20 08:18 83 142/74 05/27/20 08:00 98.7 83 18 142/74 (96) 100 05/27/20 07:45 86 05/27/20 04:00 81 05/27/20 04:00 98.8 80 20 152/74 (100) 100 05/27/20 01:44 99 Cool Aerosol 8.0 35 05/27/20 00:00 99.0 78 20 159/69 (99) 100 05/27/20 00:00 78 05/26/20 22:06 88 154/95 05/26/20 21:34 100 Cool Aerosol 8.0 35 05/26/20 21:00 Trach Collar 5.0 05/26/20 20:00 88 05/26/20 20:00 100.1 88 20 154/95 (114) 100 05/26/20 16:00 81 05/26/20 16:00 96.8 84 20 140/81 (100) 100 05/26/20 13:22 100 Cool Aerosol 8.0 35 I&O Intake and Output 05/26/20 05/27/20 19:00 07:00 Intake Total 577.5 ml 129.7 ml Output Total 900 ml Balance 577.5 ml -770.3 ml Intake IV Total 27.5 ml 129.7 ml Tube Feeding 550 ml Output Urine Total 900 ml # Voids 1 # Bowel Movements 1 Dressing: saturated Cardiovascular: RSR Respiratory: decreased breath sounds Abdomen: soft, non-tender, present bowel sounds Extremities: no tenderness, no cyanosis Laboratory Tests Test 05/26/20 16:00 05/26/20 17:25 05/27/20 00:30 05/27/20 00:31 Troponin I 0.096 ng/mL (0.000-0.056) 0.090 ng/mL (0.000-0.056) POC Whole Blood Glucose Pending 184 MG/DL (74-106) H Test 05/27/20 05:14 05/27/20 06:10 05/27/20 12:00 05/27/20 12:05 POC Whole Blood Glucose Pending Pending White Blood Count 17.9 K/UL (4.8-10.8) H Red Blood Count 3.77 M/UL (4.20-5.40) L Hemoglobin 9.3 G/DL (12.0-16.0) L Hematocrit 29.9 % (37.0-47.0) L Mean Corpuscular Volume 79 FL (80-99) L Mean Corpuscular Hemoglobin 24.8 PG (27.0-31.0) L Mean Corpuscular Hemoglobin Concent 31.3 G/DL (32.0-36.0) L Red Cell Distribution Width 16.0 % (11.6-14.8) H Platelet Count 409 K/UL (150-450) Mean Platelet Volume 7.5 FL (6.5-10.1) Neutrophils (%) (Auto) 82.1 % (45.0-75.0) H Lymphocytes (%) (Auto) 9.1 % (20.0-45.0) L Monocytes (%) (Auto) 6.0 % (1.0-10.0) Eosinophils (%) (Auto) 2.4 % (0.0-3.0) Basophils (%) (Auto) 0.4 % (0.0-2.0) Sodium Level 140 MMOL/L (136-145) Potassium Level 3.7 MMOL/L (3.5-5.1) Chloride Level 101 MMOL/L (98-107) Carbon Dioxide Level 29 MMOL/L (21-32) Anion Gap 11 mmol/L (5-15) Blood Urea Nitrogen 15 mg/dL (7-18) Creatinine 0.7 MG/DL (0.55-1.30) Estimat Glomerular Filtration Rate > 60 mL/min (>60) Glucose Level 151 MG/DL (74-106) H Calcium Level 9.0 MG/DL (8.5-10.1) Troponin I 0.087 ng/mL (0.000-0.056) 0.122 ng/mL (0.000-0.056) Triglycerides Level 86 MG/DL (30-150) Cholesterol Level 128 MG/DL (< 200) LDL Cholesterol 62 mg/dL (<100) HDL Cholesterol 51 MG/DL (40-60) Cholesterol/HDL Ratio 2.5 (3.3-4.4) L Plan Problems: (1) Anemia (2) Sepsis Assessment & Plan: 74-year-old female with medical comorbidities present with leukocytosis anemia abnormal labs hypoalbuminemia failure to thrive malnutrition worsening decubitus ulcer admitted further care and management was prior on vancomycin now on IV antibiotics admitted and under monitoring. Full evaluation does not at the bedside and evaluation performed. Trach stable PEG tube stable skin deteriorating per her turgor worsening decubitus ulcer malnutrition continue tube feeds as tolerated continue antibiotics wounds unlikely etiology of patient's sepsis we will monitor and follow with recommendations trend labs thank you for letting participate patient's care DAILY ESTIMATED NEEDS: Needs based on Wound, DM/ 57kg abw 25-30 kcals/kg 0771-7502 total kcals 1.25-1.8 g protein/kg 71-103 g total protein 20-25 mL/kg 1064-2482 total fluid mLs NUTRITION DIAGNOSIS: * Increased kcal/prot needs R/T wound healing as evidenced by pt admiteed w/ unstageable sacral wound, refer to full wound care eval. * Swallowing difficulty R/T dysphagia, respiratory status as evidenced by pt on T-collar, PEG dep. CURRENT TF:Glucerna 1.2 @ 50ml/hr x 24 hrs ENTERAL NUTRITION RECOMMENDATIONS: Glucerna 1.2 @ 50ml/hr x 24 hrs to provide 1200ml, 1440kcal, 72g, 966ml free water * Maintain current TF * HOB over 30 degrees/ water flush per MD ADDITIONAL RECOMMENDATIONS: * Calibrated bedscale wt -w/ added p200 mattress + pump * Wound healing: TF @ goal will provide 100% RDI Add Vit C 250mg QD + Endy BID via PEG * Monitor lytes closely w/ Lasix, replete as needed (3) Elevated troponin (4) Pneumonia (5) Encounter for generalized patient complaints (6) Decubitus skin ulcer Assessment & Plan: Patient presented on admission with an Unstageable Sacral Pressure injury(L)9.8cm x (W)6.7cm. Base of wound is 80% necrotic ,20% mixed slough ,beefy red. Small amt serous exudate. Mild odor noted. Borders are macerated with surrounding maroon and indurated borders. MASD noted to Mons-pubis outer aspects of R and L buttocks. Perineum and bilat ischial tuberosities. Affected areas mentioned are erythematous, macerated with scattered satellite lesions. Non-Blanchable erythema without induration or fluctuance R and L Heels. Skin assessed under tracheal collar and no evidence of skin breakdown noted. Assessed pt and necrotic base of Sacral wound crosshatched by Md. Pineda.Plan: Cleanse Sacral wound with Saline. Apply TheraHoney. Apply Moisture Barrier Paste periwound. Cover with Optifoam Drsg. Change Daily and prn. Apply Moisture Barrier Paste to Mons Pubis, Perineum and buttocks with each Incontinence care. Apply Cavilon Skin Barrier to Both heels and Malleoli. Cover each site with Optifoam Drsg. Change every 7 days and prn. Reposition at least every 2hours or as tolerated. Off-load heels with Pillow. Reposition at least every 2hours or as tolerated. APM/DANIEL mattress overlay. Adrian Gar May 27, 2020 13:19
--- NOTE | 2020-05-27 13:44 | Cardiology Progress Note ---
Subjective DATE OF SERVICE: May 27, 2020 On T-collar Moderate secretions Monitor: sinus with frequent atrial ectopics Troponin levels remain elevated. WBC decreasing Monitor: Sinus with PAFIb and NSVT Objective Last 24 Hour Vital Signs Date Time Temp Pulse Resp B/P (MAP) Pulse Ox O2 Delivery O2 Flow Rate FiO2 05/27/20 12:00 79 05/27/20 11:54 98.8 83 19 148/64 (92) 100 05/27/20 09:00 Trach Collar 8.0 05/27/20 08:27 98 Cool Aerosol 8.0 35 05/27/20 08:18 83 142/74 05/27/20 08:00 98.7 83 18 142/74 (96) 100 05/27/20 07:45 86 05/27/20 04:00 81 05/27/20 04:00 98.8 80 20 152/74 (100) 100 05/27/20 01:44 99 Cool Aerosol 8.0 35 05/27/20 00:00 99.0 78 20 159/69 (99) 100 05/27/20 00:00 78 05/26/20 22:06 88 154/95 05/26/20 21:34 100 Cool Aerosol 8.0 35 05/26/20 21:00 Trach Collar 5.0 05/26/20 20:00 88 05/26/20 20:00 100.1 88 20 154/95 (114) 100 05/26/20 16:00 81 05/26/20 16:00 96.8 84 20 140/81 (100) 100 ROS: no change from my assessment of 05/25/20 - remains unobtainable from patient HEENT: normal ENT inspection, Thick Trach secretions RHYTHM: NSR, PACs LUNGS: diminished breath sounds - left, bilateral rhonchi CARDIAC: normal rate, regular rhythm, normal S1 and S2 ABDOMEN: normal bowel sounds, non tender, soft, G-Tube intact EXTREMITIES: trace edema, other - sacral decub. noncommunicative Laboratory Tests Test 05/26/20 16:00 05/26/20 17:25 05/27/20 00:30 05/27/20 00:31 Troponin I 0.096 ng/mL (0.000-0.056) 0.090 ng/mL (0.000-0.056) POC Whole Blood Glucose Pending 184 MG/DL (74-106) H Test 05/27/20 05:14 05/27/20 06:10 05/27/20 12:00 05/27/20 12:05 POC Whole Blood Glucose Pending Pending White Blood Count 17.9 K/UL (4.8-10.8) H Red Blood Count 3.77 M/UL (4.20-5.40) L Hemoglobin 9.3 G/DL (12.0-16.0) L Hematocrit 29.9 % (37.0-47.0) L Mean Corpuscular Volume 79 FL (80-99) L Mean Corpuscular Hemoglobin 24.8 PG (27.0-31.0) L Mean Corpuscular Hemoglobin Concent 31.3 G/DL (32.0-36.0) L Red Cell Distribution Width 16.0 % (11.6-14.8) H Platelet Count 409 K/UL (150-450) Mean Platelet Volume 7.5 FL (6.5-10.1) Neutrophils (%) (Auto) 82.1 % (45.0-75.0) H Lymphocytes (%) (Auto) 9.1 % (20.0-45.0) L Monocytes (%) (Auto) 6.0 % (1.0-10.0) Eosinophils (%) (Auto) 2.4 % (0.0-3.0) Basophils (%) (Auto) 0.4 % (0.0-2.0) Sodium Level 140 MMOL/L (136-145) Potassium Level 3.7 MMOL/L (3.5-5.1) Chloride Level 101 MMOL/L (98-107) Carbon Dioxide Level 29 MMOL/L (21-32) Anion Gap 11 mmol/L (5-15) Blood Urea Nitrogen 15 mg/dL (7-18) Creatinine 0.7 MG/DL (0.55-1.30) Estimat Glomerular Filtration Rate > 60 mL/min (>60) Glucose Level 151 MG/DL (74-106) H Calcium Level 9.0 MG/DL (8.5-10.1) Troponin I 0.087 ng/mL (0.000-0.056) 0.122 ng/mL (0.000-0.056) Triglycerides Level 86 MG/DL (30-150) Cholesterol Level 128 MG/DL (< 200) LDL Cholesterol 62 mg/dL (<100) HDL Cholesterol 51 MG/DL (40-60) Cholesterol/HDL Ratio 2.5 (3.3-4.4) L Microbiology Date/Time Source Procedure Growth Status 05/25/20 17:16 Blood Blood Culture - Preliminary Resulted 05/25/20 17:00 Blood Blood Culture - Preliminary Resulted 05/25/20 17:20 Nasopharynx SARS-CoV-2 RdRp Gene Assay - Final Complete 05/25/20 00:00 Rectum Ordered Assessment/Plan Assessment/Plan Healthcare associated PNA Left pleural effusion Acute myocardial ischemia with possible NSTE myocardial infarction Sepsis Respiratory failure Hypertension/HHD Parox AFib Conduction system disease with bifasc block Ac/chr diastolic CHF Low lipid parameters NSVT Resp Rx Antimicrobials monitoring coordinator Off IVF; titrate diuretic dosing and monitor lytes Full anticoagulation Titrate CV regimen based on clinical parameters - advancing antianginal regimen , including beta pietro. No need for statin John Heard MD May 27, 2020 13:44
[2020-05-27 16:00] VITALS: BP 141/71
[2020-05-27] MEDS: Nitroglycerin 2% oint pkt TOPIC SCH (17:19)
[2020-05-27 20:00] VITALS: BP 150/75
[2020-05-28] VITALS (7 sets, daily range): BP systolic 138–164; BP diastolic 64–76
[2020-05-28] MEDS: NovoLOG Insulin Flexpen SUBQ SCH ×4 (00:28→18:00)
[2020-05-28] MEDS: Piperacillin/Tazobactam 3.375 GM in NS 110 ML IVPB SCH ×3 (02:08→18:30)
[2020-05-28] MEDS: Nitroglycerin 2% oint pkt TOPIC SCH ×3 (05:57→18:30)
[2020-05-28] MEDS ORDERED: Levofloxacin 750mg tab GT SCH (09:00)
--- NOTE | 2020-05-28 09:03 | Surgery Progress Note ---
Surgery Progress Note Subjective Additional Comments Trach collar t piece, tf tolerated labs improving exam stable Objective Last 24 Hour Vital Signs Date Time Temp Pulse Resp B/P (MAP) Pulse Ox O2 Delivery O2 Flow Rate FiO2 05/28/20 05:57 149/78 05/28/20 04:00 84 05/28/20 04:00 97.8 80 22 149/70 (96) 100 05/28/20 01:06 99 Cool Aerosol 8.0 35 05/28/20 00:00 98.0 91 22 138/74 (95) 99 05/28/20 00:00 90 05/27/20 21:00 Trach Collar 8.0 05/27/20 20:13 90 150/74 05/27/20 20:00 98.6 90 22 150/75 (100) 100 05/27/20 20:00 82 05/27/20 18:58 97 T-Piece 8.0 35 05/27/20 17:19 141/71 05/27/20 16:03 92 05/27/20 16:00 98.7 91 20 141/71 (94) 98 05/27/20 13:54 98 T-Piece 8.0 35 05/27/20 12:00 79 05/27/20 11:54 98.8 83 19 148/64 (92) 100 I&O Intake and Output 05/27/20 05/28/20 19:00 07:00 Intake Total 625 ml Output Total 1200 ml 650 ml Balance -575 ml -650 ml Tube Feeding 625 ml Output Urine Total 1200 ml 650 ml # Voids 3 1 # Bowel Movements 1 Dressing: other Wound: other Cardiovascular: RSR Respiratory: decreased breath sounds Abdomen: soft, non-tender, present bowel sounds Extremities: no tenderness, no cyanosis Laboratory Tests Test 05/27/20 12:00 05/27/20 12:05 05/27/20 17:28 05/27/20 23:24 Troponin I 0.122 ng/mL (0.000-0.056) POC Whole Blood Glucose Pending Pending 209 MG/DL (74-106) H Test 05/28/20 04:57 05/28/20 08:20 POC Whole Blood Glucose 214 MG/DL (74-106) H White Blood Count Pending Red Blood Count Pending Hemoglobin Pending Hematocrit Pending Mean Corpuscular Volume Pending Mean Corpuscular Hemoglobin Pending Mean Corpuscular Hemoglobin Concent Pending Red Cell Distribution Width Pending Platelet Count Pending Mean Platelet Volume Pending Neutrophils (%) (Auto) Pending Lymphocytes (%) (Auto) Pending Monocytes (%) (Auto) Pending Eosinophils (%) (Auto) Pending Basophils (%) (Auto) Pending Sodium Level Pending Potassium Level Pending Chloride Level Pending Carbon Dioxide Level Pending Blood Urea Nitrogen Pending Creatinine Pending Estimat Glomerular Filtration Rate Pending Glucose Level Pending Calcium Level Pending Magnesium Level Pending Total Bilirubin Pending Aspartate Amino Transf (AST/SGOT) Pending Alanine Aminotransferase (ALT/SGPT) Pending Alkaline Phosphatase Pending Troponin I Pending Pro-B-Type Natriuretic Peptide Pending Total Protein Pending Albumin Pending Globulin Pending Vancomycin Level Trough Pending Plan Problems: (1) Anemia (2) Sepsis Assessment & Plan: 74-year-old female with medical comorbidities present with leukocytosis anemia abnormal labs hypoalbuminemia failure to thrive malnutrition worsening decubitus ulcer admitted further care and management was prior on vancomycin now on IV antibiotics admitted and under monitoring. Full evaluation does not at the bedside and evaluation performed. Trach stable PEG tube stable skin deteriorating per her turgor worsening decubitus ulcer malnutrition continue tube feeds as tolerated continue antibiotics wounds unlikely etiology of patient's sepsis we will monitor and follow with recommendations trend labs thank you for letting participate patient's care DAILY ESTIMATED NEEDS: Needs based on Wound, DM/ 57kg abw 25-30 kcals/kg 9273-0684 total kcals 1.25-1.8 g protein/kg 71-103 g total protein 20-25 mL/kg 4779-2260 total fluid mLs NUTRITION DIAGNOSIS: * Increased kcal/prot needs R/T wound healing as evidenced by pt admiteed w/ unstageable sacral wound, refer to full wound care eval. * Swallowing difficulty R/T dysphagia, respiratory status as evidenced by pt on T-collar, PEG dep. CURRENT TF:Glucerna 1.2 @ 50ml/hr x 24 hrs ENTERAL NUTRITION RECOMMENDATIONS: Glucerna 1.2 @ 50ml/hr x 24 hrs to provide 1200ml, 1440kcal, 72g, 966ml free water * Maintain current TF * HOB over 30 degrees/ water flush per MD ADDITIONAL RECOMMENDATIONS: * Calibrated bedscale wt -w/ added p200 mattress + pump * Wound healing: TF @ goal will provide 100% RDI Add Vit C 250mg QD + Endy BID via PEG * Monitor lytes closely w/ Lasix, replete as needed (3) Elevated troponin (4) Pneumonia (5) Encounter for generalized patient complaints (6) Decubitus skin ulcer Assessment & Plan: Patient presented on admission with an Unstageable Sacral Pressure injury(L)9.8cm x (W)6.7cm. Base of wound is 80% necrotic ,20% mixed slough ,beefy red. Small amt serous exudate. Mild odor noted. Borders are macerated with surrounding maroon and indurated borders. MASD noted to Mons-pubis outer aspects of R and L buttocks. Perineum and bilat ischial tuberosities. Affected areas mentioned are erythematous, macerated with scattered satellite lesions. Non-Blanchable erythema without induration or fluctuance R and L Heels. Skin assessed under tracheal collar and no evidence of skin breakdown noted. Assessed pt and necrotic base of Sacral wound crosshatched by Md. Pineda.Plan: Cleanse Sacral wound with Saline. Apply TheraHoney. Apply Moisture Barrier Paste periwound. Cover with Optifoam Drsg. Change Daily and prn. Apply Moisture Barrier Paste to Mons Pubis, Perineum and buttocks with each Incontinence care. Apply Cavilon Skin Barrier to Both heels and Malleoli. Cover each site with Optifoam Drsg. Change every 7 days and prn. Reposition at least every 2hours or as tolerated. Off-load heels with Pillow. Reposition at least every 2hours or as tolerated. APM/DANIEL mattress overlay. Adrian Gar May 28, 2020 09:03
--- NOTE | 2020-05-28 09:18 | Diagnostic Imaging Report ---
EXAM: XR Chest, 1 View CLINICAL HISTORY: ABN CHST TECHNIQUE: Frontal view of the chest. COMPARISON: Chest radiograph May 25, 2020 FINDINGS/IMPRESSION: Midline tracheostomy tube. Moderate left pleural effusion. Mild vascular congestion. Overall, no significant interval change. No pneumothorax. Cardiomegaly. Calcified aorta.
[2020-05-28 09:43] LABS: EOSINOPHILS % (AUTO) 3.2 % (0.0-3.0); HEMATOCRIT 27.6 % (37.0-47.0); HEMOGLOBIN 8.7 G/DL (12.0-16.0); LYMPHOCYTES % (AUTO) 11.3 % (20.0-45.0); MEAN CORPUSCULAR VOLUME 78 FL (80-99); MONOCYTES % (AUTO) 8.9 % (1.0-10.0); NEUTROPHILS % (AUTO) 75.6 % (45.0-75.0); PLATELET COUNT 397 K/UL (150-450); RED BLOOD COUNT 3.55 M/UL (4.20-5.40); WHITE BLOOD COUNT 13.5 K/UL (4.8-10.8)
[2020-05-28 09:56] LABS: ALANINE AMINOTRANSFERASE 16 U/L (12-78); ALBUMIN 2.2 G/DL (3.4-5.0); ALBUMIN/GLOBULIN RATIO 0.5 (1.0-2.7); ALKALINE PHOSPHATASE 124 U/L (46-116); ANION GAP 7 mmol/L (5-15); ASPARTATE AMINO TRANSFERASE 13 U/L (15-37); BILIRUBIN,TOTAL 0.3 MG/DL (0.2-1.0); BLOOD UREA NITROGEN 15 mg/dL (7-18); CALCIUM 8.6 MG/DL (8.5-10.1); CARBON DIOXIDE 32 MMOL/L (21-32); CHLORIDE 99 MMOL/L (98-107); CREATININE 0.7 MG/DL (0.55-1.30); POTASSIUM 3.6 MMOL/L (3.5-5.1); SODIUM 138 MMOL/L (136-145)
[2020-05-28] MEDS: Ascorbic Acid 500mg tab GT SCH (09:59)
[2020-05-28] MEDS: Furosemide 40mg tab GT SCH (10:00)
[2020-05-28] MEDS: Metoprolol Tartrate 50mg tab GT SCH ×3 (10:00→22:19)
[2020-05-28] MEDS: Eliquis 5mg tablet GT SCH ×2 (10:00→18:30)
[2020-05-28] MEDS: Pantoprazole Inj IVP SCH (10:01)
[2020-05-28] MEDS: Vancomycin 1.25gm/NS Premix q24h IVPB SCH (10:14)
[2020-05-28] MEDS ORDERED: Vancomycin 750mg/NS 275ml IVPB SCH ×2 (11:15)
--- NOTE | 2020-05-28 13:12 | Pulmonology Progress Note ---
Subjective ROS Limited/Unobtainable: Yes Allergies: Coded Allergies: No Known Allergies (Unverified , 05/15/20) Subjective care noted wbc better Objective Last 24 Hour Vital Signs Date Time Temp Pulse Resp B/P (MAP) Pulse Ox O2 Delivery O2 Flow Rate FiO2 05/28/20 12:35 160/64 05/28/20 12:00 96.5 76 18 160/64 (96) 98 05/28/20 12:00 83 05/28/20 10:00 93 155/67 05/28/20 09:00 Trach Collar 8.0 05/28/20 08:36 98 T-Piece 8.0 35 05/28/20 08:00 86 05/28/20 08:00 96.8 93 18 155/67 (96) 100 05/28/20 05:57 149/78 05/28/20 04:00 84 05/28/20 04:00 97.8 80 22 149/70 (96) 100 05/28/20 01:06 99 Cool Aerosol 8.0 35 05/28/20 00:00 98.0 91 22 138/74 (95) 99 05/28/20 00:00 90 05/27/20 21:00 Trach Collar 8.0 05/27/20 20:13 90 150/74 05/27/20 20:00 98.6 90 22 150/75 (100) 100 05/27/20 20:00 82 05/27/20 18:58 97 T-Piece 8.0 35 05/27/20 17:19 141/71 05/27/20 16:03 92 05/27/20 16:00 98.7 91 20 141/71 (94) 98 05/27/20 13:54 98 T-Piece 8.0 35 Intake and Output 05/27/20 05/28/20 19:00 07:00 Intake Total 625 ml Output Total 1200 ml 650 ml Balance -575 ml -650 ml Tube Feeding 625 ml Output Urine Total 1200 ml 650 ml # Voids 3 1 # Bowel Movements 1 Objective WDWN NAD trach clear breath sounds bilaterally without rhonchi or wheeze [id number] without MRG NABS nontender GT no CCE withdrawn Microbiology Date/Time Source Procedure Growth Status 05/25/20 17:16 Blood Blood Culture - Preliminary Staphylococcus Species Resulted 05/25/20 17:00 Blood Blood Culture - Preliminary Staphylococcus Species Resulted 05/25/20 17:20 Nasopharynx SARS-CoV-2 RdRp Gene Assay - Final Complete Laboratory Tests 05/27/20 17:28: POC Whole Blood Glucose [Pending] 05/27/20 23:24: POC Whole Blood Glucose 209H 05/28/20 04:57: POC Whole Blood Glucose 214H 05/28/20 08:20: White Blood Count 13.5H, Red Blood Count 3.55L, Hemoglobin 8.7L, Hematocrit 27.6L, Mean Corpuscular Volume 78L, Mean Corpuscular Hemoglobin 24.5L, Mean Corpuscular Hemoglobin Concent 31.5L, Red Cell Distribution Width 16.0H, Platelet Count 397, Mean Platelet Volume 8.2, Neutrophils (%) (Auto) 75.6H, Lymphocytes (%) (Auto) 11.3L, Monocytes (%) (Auto) 8.9, Eosinophils (%) (Auto) 3.2H, Basophils (%) (Auto) 1.0, Sodium Level 138, Potassium Level 3.6, Chloride Level 99, Carbon Dioxide Level 32, Anion Gap 7, Blood Urea Nitrogen 15, Creatinine 0.7, Estimat Glomerular Filtration Rate > 60, Glucose Level 234H, Calcium Level 8.6, Magnesium Level 1.8, Total Bilirubin 0.3, Aspartate Amino Transf (AST/SGOT) 13L, Alanine Aminotransferase (ALT/SGPT) 16, Alkaline Phosphatase 124H, Troponin I 0.114H, Pro-B-Type Natriuretic Peptide 4845H, Total Protein 6.6, Albumin 2.2L, Globulin 4.4, Albumin/Globulin Ratio 0.5L, Vancomycin Level Trough 10.7 05/28/20 12:28: POC Whole Blood Glucose 259H Current Medications Medications (Trade) Dose Ordered Sig/Cayden Route PRN Reason Start Time Stop Time Status Last Admin Dose Admin Acetaminophen (Tylenol) 650 mg Q4H PRN GT Pain 05/26/20 07:45 06/25/20 07:44 Apixaban (Eliquis) 5 mg BID GT 05/26/20 09:00 08/24/20 08:59 05/28/20 10:00 Ascorbic Acid (Vitamin C) 250 mg DAILY GT 05/28/20 09:00 06/27/20 08:59 05/28/20 09:59 Dextrose (Dextrose 50%) 25 ml Q30M PRN IV Hypoglycemia 05/26/20 07:30 08/24/20 07:29 Dextrose (Dextrose 50%) 50 ml Q30M PRN IV Hypoglycemia 05/26/20 07:30 08/24/20 07:29 Furosemide (Lasix) 40 mg DAILY GT 05/26/20 09:00 06/25/20 08:59 05/28/20 10:00 Insulin Aspart (NovoLOG) Q6HR SUBQ 05/26/20 12:00 08/24/20 11:59 05/28/20 12:00 Metoprolol Tartrate (Lopressor) 50 mg EVERY 12 HOURS GT 05/26/20 09:00 08/24/20 08:59 05/28/20 10:00 Nitroglycerin (Nitro-Bid) 1 inch TID@0600,1200,1800 TOPIC 05/27/20 18:00 06/26/20 17:59 05/28/20 12:35 Pantoprazole (Protonix) 40 mg DAILY IVP 05/26/20 09:00 06/25/20 08:59 05/28/20 10:01 Piperacillin Sod/ Tazobactam Sod 3.375 gm/Sodium Chloride 110 ml @ 27.5 mls/hr Q8H IVPB 05/26/20 10:00 06/02/20 09:59 05/28/20 10:07 Vancomycin HCl (Vanco pharmacy to dose) 1 ea DAILY PRN MISC Per rx protocol 05/26/20 07:00 06/25/20 06:59 Vancomycin HCl 750 mg/Sodium Chloride 275 ml @ 183.333 mls/hr Q12H IVPB 05/28/20 22:00 06/02/20 21:59 Vancomycin/Sodium Chloride 275 ml @ 183.333 mls/hr Q24H IVPB 05/26/20 09:00 05/28/20 15:00 05/28/20 10:14 Assessment/Plan Assessment/Plan IMPRESSION leukocytosis sepsis Afib, chronic encephalopathy trach respiratory failure elevated troponin anemia bacteremia PLAN Iv antibiotics ID noted dc to snf respiratory care snf meds suction monitor cultures eliquis card follow up impression, plan, and exam edited and reviewed in detail care discussed with Fernie Ledezma MD May 28, 2020 13:12
[2020-05-28] MEDS: Acetaminophen 650mg/20.3ml GT PRN (20:10)
--- NOTE | 2020-05-28 21:29 | Cardiology Progress Note ---
Subjective DATE OF SERVICE: May 28, 2020 On T-collar Moderate secretions Troponin levels decreasing. WBC decreasing; glucose up. Monitor: Sinus with PAFIb and short runs of NSVT Objective Last 24 Hour Vital Signs Date Time Temp Pulse Resp B/P (MAP) Pulse Ox O2 Delivery O2 Flow Rate FiO2 05/28/20 20:09 94 153/67 05/28/20 20:07 101.1 94 22 153/67 (95) 96 05/28/20 19:40 98 T-Piece 5.0 28 05/28/20 18:30 164/76 05/28/20 16:00 83 05/28/20 16:00 99.0 84 18 164/76 (105) 99 05/28/20 13:52 97 T-Piece 8.0 35 05/28/20 12:35 160/64 05/28/20 12:00 96.5 76 18 160/64 (96) 98 05/28/20 12:00 83 05/28/20 10:00 93 155/67 05/28/20 09:00 Trach Collar 8.0 05/28/20 08:36 98 T-Piece 8.0 35 05/28/20 08:00 86 05/28/20 08:00 96.8 93 18 155/67 (96) 100 05/28/20 05:57 149/78 05/28/20 04:00 84 05/28/20 04:00 97.8 80 22 149/70 (96) 100 05/28/20 01:06 99 Cool Aerosol 8.0 35 05/28/20 00:00 98.0 91 22 138/74 (95) 99 05/28/20 00:00 90 ROS: no change from my assessment of 05/25/20 - remains unobtainable from patient HEENT: normal ENT inspection, Thick Trach secretions RHYTHM: NSR, PACs LUNGS: diminished breath sounds - left, bilateral rhonchi CARDIAC: normal rate, regular rhythm, normal S1 and S2 ABDOMEN: normal bowel sounds, non tender, soft, G-Tube intact EXTREMITIES: trace edema, other - sacral decub. noncommunicative Laboratory Tests Test 05/27/20 23:24 05/28/20 04:57 05/28/20 08:20 05/28/20 12:28 POC Whole Blood Glucose 209 MG/DL (74-106) H 214 MG/DL (74-106) H 259 MG/DL (74-106) H White Blood Count 13.5 K/UL (4.8-10.8) H Red Blood Count 3.55 M/UL (4.20-5.40) L Hemoglobin 8.7 G/DL (12.0-16.0) L Hematocrit 27.6 % (37.0-47.0) L Mean Corpuscular Volume 78 FL (80-99) L Mean Corpuscular Hemoglobin 24.5 PG (27.0-31.0) L Mean Corpuscular Hemoglobin Concent 31.5 G/DL (32.0-36.0) L Red Cell Distribution Width 16.0 % (11.6-14.8) H Platelet Count 397 K/UL (150-450) Mean Platelet Volume 8.2 FL (6.5-10.1) Neutrophils (%) (Auto) 75.6 % (45.0-75.0) H Lymphocytes (%) (Auto) 11.3 % (20.0-45.0) L Monocytes (%) (Auto) 8.9 % (1.0-10.0) Eosinophils (%) (Auto) 3.2 % (0.0-3.0) H Basophils (%) (Auto) 1.0 % (0.0-2.0) Sodium Level 138 MMOL/L (136-145) Potassium Level 3.6 MMOL/L (3.5-5.1) Chloride Level 99 MMOL/L (98-107) Carbon Dioxide Level 32 MMOL/L (21-32) Anion Gap 7 mmol/L (5-15) Blood Urea Nitrogen 15 mg/dL (7-18) Creatinine 0.7 MG/DL (0.55-1.30) Estimat Glomerular Filtration Rate > 60 mL/min (>60) Glucose Level 234 MG/DL (74-106) H Calcium Level 8.6 MG/DL (8.5-10.1) Magnesium Level 1.8 MG/DL (1.8-2.4) Total Bilirubin 0.3 MG/DL (0.2-1.0) Aspartate Amino Transf (AST/SGOT) 13 U/L (15-37) L Alanine Aminotransferase (ALT/SGPT) 16 U/L (12-78) Alkaline Phosphatase 124 U/L (46-116) H Troponin I 0.114 ng/mL (0.000-0.056) Pro-B-Type Natriuretic Peptide 4845 pg/mL (0-125) H Total Protein 6.6 G/DL (6.4-8.2) Albumin 2.2 G/DL (3.4-5.0) L Globulin 4.4 g/dL Albumin/Globulin Ratio 0.5 (1.0-2.7) L Vancomycin Level Trough 10.7 ug/mL (5.0-12.0) Test 05/28/20 18:34 POC Whole Blood Glucose Pending CHEST XRAY: 05/28: Increasing left pleural eff'n and mild CHF. 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 No need for statin Add'l insulin rx John Heard MD May 28, 2020 21:29
[2020-05-28] MEDS: Vancomycin 750mg/NS 275ml IVPB SCH ×2 (22:16)
[2020-05-28] MEDS: Levemir Flexpen SUBQ SCH (22:30)
[2020-05-29] VITALS: BP 158/69
--- NOTE | 2020-05-29 01:04 | Diagnostic Imaging Report ---
EXAM: XR Chest, 1 View CLINICAL HISTORY: TACHYP TECHNIQUE: Frontal view of the chest. COMPARISON: 05/28/2020 IMPRESSION: Cardiomegaly. Mild vascular congestion. Possible mild left pleural effusion with atelectasis. Tracheostomy tube is in place.
[2020-05-29] MEDS: Piperacillin/Tazobactam 3.375 GM in NS 110 ML IVPB SCH ×3 (01:48→18:03)
[2020-05-29 04:00] VITALS: BP_SYST 144; BP_SYST 163; BP_DIAS 70; BP_DIAS 76
[2020-05-29] MEDS: Metoprolol Tartrate 50mg tab GT SCH ×3 (05:51→21:11)
[2020-05-29] MEDS: NovoLOG Insulin Flexpen SUBQ SCH ×5 (05:52→23:38)
[2020-05-29] MEDS: Nitroglycerin 2% oint pkt TOPIC SCH ×3 (05:52→18:04)
[2020-05-29 08:00] VITALS: BP 157/69
[2020-05-29] MEDS: Pantoprazole Inj IVP SCH (09:47)
[2020-05-29] MEDS: Eliquis 5mg tablet GT SCH ×2 (09:47→18:04)
[2020-05-29] MEDS: Ascorbic Acid 500mg tab GT SCH (09:47)
[2020-05-29] MEDS: Vancomycin 750mg/NS 275ml IVPB SCH ×2 (10:07)
--- NOTE | 2020-05-29 10:41 | Pulmonology Progress Note ---
Subjective ROS Limited/Unobtainable: Yes Allergies: Coded Allergies: No Known Allergies (Unverified , 05/15/20) Subjective care noted fevers noted wbc better Objective Last 24 Hour Vital Signs Date Time Temp Pulse Resp B/P (MAP) Pulse Ox O2 Delivery O2 Flow Rate FiO2 05/29/20 06:19 99.3 05/29/20 05:52 144/76 05/29/20 05:51 79 144/70 05/29/20 04:00 83 05/29/20 04:00 100.9 79 22 163/76 (105) 99 05/29/20 04:00 99.3 78 23 144/70 (94) 100 05/29/20 01:30 99.1 05/29/20 01:04 98 T-Piece 5.0 28 05/29/20 00:00 76 05/29/20 00:00 100.6 73 23 158/69 (98) 97 05/28/20 22:19 100.9 79 22 163/76 (105) 99 05/28/20 22:19 79 163/76 05/28/20 21:00 101.8 05/28/20 21:00 Trach Collar 8.0 05/28/20 20:40 101.8 05/28/20 20:09 94 153/67 05/28/20 20:07 101.1 94 22 153/67 (95) 96 05/28/20 19:40 98 T-Piece 5.0 28 05/28/20 18:30 164/76 05/28/20 16:00 83 05/28/20 16:00 99.0 84 18 164/76 (105) 99 05/28/20 13:52 97 T-Piece 8.0 35 05/28/20 12:35 160/64 05/28/20 12:00 96.5 76 18 160/64 (96) 98 05/28/20 12:00 83 Intake and Output 05/28/20 05/29/20 19:00 07:00 Output Total 1350 ml 1850 ml Balance -1350 ml -1850 ml Output Urine Total 1350 ml 1850 ml # Bowel Movements 1 1 Objective WDWN NAD trach reduced breath sounds bilaterally with some rhonchi [id number] without MRG NABS nontender GT no CCE withdrawn Laboratory Tests 05/28/20 12:28: POC Whole Blood Glucose 259H 05/28/20 18:34: POC Whole Blood Glucose [Pending] 05/29/20 01:43: POC Whole Blood Glucose 226H 05/29/20 05:49: POC Whole Blood Glucose 263H Current Medications Medications (Trade) Dose Ordered Sig/Cayden Route PRN Reason Start Time Stop Time Status Last Admin Dose Admin Acetaminophen (Tylenol) 650 mg Q4H PRN GT Pain 05/26/20 07:45 06/25/20 07:44 05/28/20 20:10 Apixaban (Eliquis) 5 mg BID GT 05/26/20 09:00 08/24/20 08:59 05/29/20 09:47 Ascorbic Acid (Vitamin C) 250 mg DAILY GT 05/28/20 09:00 06/27/20 08:59 05/29/20 09:47 Dextrose (Dextrose 50%) 25 ml Q30M PRN IV Hypoglycemia 05/26/20 07:30 08/24/20 07:29 Dextrose (Dextrose 50%) 50 ml Q30M PRN IV Hypoglycemia 05/26/20 07:30 08/24/20 07:29 Furosemide (Lasix) 40 mg DAILY IV 05/29/20 09:00 06/28/20 08:59 05/29/20 09:47 Furosemide (Lasix) 40 mg ONCE IV 05/28/20 21:30 06/27/20 23:00 05/28/20 22:16 Insulin Aspart (NovoLOG) Q6HR SUBQ 05/26/20 12:00 08/24/20 11:59 05/29/20 05:52 Insulin Detemir (Levemir) 12 units BEDTIME SUBQ 05/28/20 22:30 08/26/20 22:29 Metoprolol Tartrate (Lopressor) 50 mg EVERY 8 HOURS GT 05/28/20 22:00 08/26/20 21:59 05/29/20 05:51 Nitroglycerin (Nitro-Bid) 1 inch TID@0600,1200,1800 TOPIC 05/27/20 18:00 06/26/20 17:59 05/29/20 05:52 Pantoprazole (Protonix) 40 mg DAILY IVP 05/26/20 09:00 06/25/20 08:59 05/29/20 09:47 Piperacillin Sod/ Tazobactam Sod 3.375 gm/Sodium Chloride 110 ml @ 27.5 mls/hr Q8H IVPB 05/26/20 10:00 06/02/20 09:59 05/29/20 09:48 Vancomycin HCl (Vanco pharmacy to dose) 1 ea DAILY PRN MISC Per rx protocol 05/26/20 07:00 06/25/20 06:59 Vancomycin HCl 750 mg/Sodium Chloride 275 ml @ 183.333 mls/hr Q12H IVPB 05/28/20 22:00 06/02/20 21:59 05/29/20 10:07 Assessment/Plan Assessment/Plan IMPRESSION leukocytosis sepsis Afib, chronic encephalopathy trach respiratory failure elevated troponin anemia bacteremia fevers PLAN Iv antibiotics ID follow up dc to snf when stable and fevers and wbc improved respiratory care snf meds suction monitor cultures eliquis card follow up impression, plan, and exam edited and reviewed in detail care discussed with Fernie Ledezma MD May 29, 2020 10:41
[2020-05-29 12:00] VITALS: BP 162/76
--- NOTE | 2020-05-29 12:28 | Surgery Progress Note ---
Surgery Progress Note Subjective Additional Comments leukocytosis improved no n/v labs noted glu control Objective Last 24 Hour Vital Signs Date Time Temp Pulse Resp B/P (MAP) Pulse Ox O2 Delivery O2 Flow Rate FiO2 05/29/20 12:16 98 T-Piece 5.0 28 05/29/20 12:13 162/76 05/29/20 09:15 97 T-Piece 5.0 28 05/29/20 08:00 81 05/29/20 08:00 98.8 86 22 157/69 (98) 100 05/29/20 06:19 99.3 05/29/20 05:52 144/76 05/29/20 05:51 79 144/70 05/29/20 04:00 83 05/29/20 04:00 100.9 79 22 163/76 (105) 99 05/29/20 04:00 99.3 78 23 144/70 (94) 100 05/29/20 01:30 99.1 05/29/20 01:04 98 T-Piece 5.0 28 05/29/20 00:00 76 05/29/20 00:00 100.6 73 23 158/69 (98) 97 05/28/20 22:19 100.9 79 22 163/76 (105) 99 05/28/20 22:19 79 163/76 05/28/20 21:00 101.8 05/28/20 21:00 Trach Collar 8.0 05/28/20 20:40 101.8 05/28/20 20:09 94 153/67 05/28/20 20:07 101.1 94 22 153/67 (95) 96 05/28/20 19:40 98 T-Piece 5.0 28 05/28/20 18:30 164/76 05/28/20 16:00 83 05/28/20 16:00 99.0 84 18 164/76 (105) 99 05/28/20 13:52 97 T-Piece 8.0 35 05/28/20 12:35 160/64 I&O Intake and Output 05/28/20 05/29/20 19:00 07:00 Output Total 1350 ml 1850 ml Balance -1350 ml -1850 ml Output Urine Total 1350 ml 1850 ml # Bowel Movements 1 1 Dressing: saturated Cardiovascular: RSR Respiratory: decreased breath sounds Abdomen: soft, non-tender, present bowel sounds Extremities: no tenderness, no cyanosis Laboratory Tests Test 05/28/20 18:34 05/29/20 01:43 05/29/20 05:49 05/29/20 12:15 POC Whole Blood Glucose Pending 226 MG/DL (74-106) H 263 MG/DL (74-106) H Pending Plan Problems: (1) Anemia (2) Sepsis Assessment & Plan: 74-year-old female with medical comorbidities present with leukocytosis anemia abnormal labs hypoalbuminemia failure to thrive malnutrition worsening decubitus ulcer admitted further care and management was prior on vancomycin now on IV antibiotics admitted and under monitoring. Full evaluation does not at the bedside and evaluation performed. Trach stable PEG tube stable skin deteriorating per her turgor worsening decubitus ulcer malnutrition continue tube feeds as tolerated continue antibiotics wounds unlikely etiology of patient's sepsis we will monitor and follow with recommendations trend labs thank you for letting participate patient's care DAILY ESTIMATED NEEDS: Needs based on Wound, DM/ 57kg abw 25-30 kcals/kg [id number] total kcals 1.25-1.8 g protein/kg 71-103 g total protein 20-25 mL/kg 1500-0130 total fluid mLs NUTRITION DIAGNOSIS: * Increased kcal/prot needs R/T wound healing as evidenced by pt admiteed w/ unstageable sacral wound, refer to full wound care eval. * Swallowing difficulty R/T dysphagia, respiratory status as evidenced by pt on T-collar, PEG dep. CURRENT TF:Glucerna 1.2 @ 50ml/hr x 24 hrs ENTERAL NUTRITION RECOMMENDATIONS: Glucerna 1.2 @ 50ml/hr x 24 hrs to provide 1200ml, 1440kcal, 72g, 966ml free water * Maintain current TF * HOB over 30 degrees/ water flush per MD ADDITIONAL RECOMMENDATIONS: * Calibrated bedscale wt -w/ added p200 mattress + pump * Wound healing: TF @ goal will provide 100% RDI Add Vit C 250mg QD + Endy BID via PEG * Monitor lytes closely w/ Lasix, replete as needed (3) Elevated troponin (4) Pneumonia (5) Encounter for generalized patient complaints (6) Decubitus skin ulcer Assessment & Plan: Patient presented on admission with an Unstageable Sacral Pressure injury(L)9.8cm x (W)6.7cm. Base of wound is 80% necrotic ,20% mixed slough ,beefy red. Small amt serous exudate. Mild odor noted. Borders are macerated with surrounding maroon and indurated borders. MASD noted to Mons-pubis outer aspects of R and L buttocks. Perineum and bilat ischial tuberosities. Affected areas mentioned are erythematous, macerated with scattered satellite lesions. Non-Blanchable erythema without induration or fluctuance R and L Heels. Skin assessed under tracheal collar and no evidence of skin breakdown noted. Assessed pt and necrotic base of Sacral wound crosshatched by Md. Pineda.Plan: Cleanse Sacral wound with Saline. Apply TheraHoney. Apply Moisture Barrier Paste periwound. Cover with Optifoam Drsg. Change Daily and prn. Apply Moisture Barrier Paste to Mons Pubis, Perineum and buttocks with each Incontinence care. Apply Cavilon Skin Barrier to Both heels and Malleoli. Cover each site with Optifoam Drsg. Change every 7 days and prn. Reposition at least every 2hours or as tolerated. Off-load heels with Pillow. Reposition at least every 2hours or as tolerated. APM/DANIEL mattress overlay. Adrian Gar May 29, 2020 12:28
--- NOTE | 2020-05-29 12:49 | Infectious Diseases Prog Note ---
Assessment/Plan Assessment/Plan A: 1. sepsis. 2. Aspiration pneumonia. 3. Leukocytosis is improving. 4. Diabetes. 5. Hypertension. 6. CVA. 7. Dementia. 8. COVID-19 test was negative. 9. Positive blood cultures likely contamination PLAN: 1. Discontinue IV vancomycin 2. Continue Zosyn. 3. We will follow up cultures and adjust antibiotics accordingly. Subjective ROS Limited/Unobtainable: Yes Constitutional: Reports: fever Allergies: Coded Allergies: No Known Allergies (Unverified , 05/15/20) Objective Last 24 Hour Vital Signs Date Time Temp Pulse Resp B/P (MAP) Pulse Ox O2 Delivery O2 Flow Rate FiO2 05/29/20 12:16 98 T-Piece 5.0 28 05/29/20 12:13 162/76 05/29/20 09:15 97 T-Piece 5.0 28 05/29/20 08:00 81 05/29/20 08:00 98.8 86 22 157/69 (98) 100 05/29/20 06:19 99.3 05/29/20 05:52 144/76 05/29/20 05:51 79 144/70 05/29/20 04:00 83 05/29/20 04:00 100.9 79 22 163/76 (105) 99 05/29/20 04:00 99.3 78 23 144/70 (94) 100 05/29/20 01:30 99.1 05/29/20 01:04 98 T-Piece 5.0 28 05/29/20 00:00 76 05/29/20 00:00 100.6 73 23 158/69 (98) 97 05/28/20 22:19 100.9 79 22 163/76 (105) 99 05/28/20 22:19 79 163/76 05/28/20 21:00 101.8 05/28/20 21:00 Trach Collar 8.0 05/28/20 20:40 101.8 05/28/20 20:09 94 153/67 05/28/20 20:07 101.1 94 22 153/67 (95) 96 05/28/20 19:40 98 T-Piece 5.0 28 05/28/20 18:30 164/76 05/28/20 16:00 83 05/28/20 16:00 99.0 84 18 164/76 (105) 99 05/28/20 13:52 97 T-Piece 8.0 35 Height (Feet): 5 Height (Inches): 3.00 Weight (Pounds): 161 General Appearance: no acute distress HEENT: status post trach Respiratory/Chest: lungs clear, other - on T bar Cardiovascular: normal rate Abdomen: soft, non tender, other - GT feeding Extremities: other - dependent edema Neurologic/Psychiatric: aphasia, other - opens eyes Laboratory Tests Test 05/28/20 18:34 05/29/20 01:43 05/29/20 05:49 05/29/20 12:15 POC Whole Blood Glucose Pending 226 MG/DL (74-106) H 263 MG/DL (74-106) H Pending Current Medications Medications (Trade) Dose Ordered Sig/Cayden Route PRN Reason Start Time Stop Time Status Last Admin Dose Admin Acetaminophen (Tylenol) 650 mg Q4H PRN GT Pain 05/26/20 07:45 06/25/20 07:44 05/28/20 20:10 Apixaban (Eliquis) 5 mg BID GT 05/26/20 09:00 08/24/20 08:59 05/29/20 09:47 Ascorbic Acid (Vitamin C) 250 mg DAILY GT 05/28/20 09:00 06/27/20 08:59 05/29/20 09:47 Dextrose (Dextrose 50%) 25 ml Q30M PRN IV Hypoglycemia 05/26/20 07:30 08/24/20 07:29 Dextrose (Dextrose 50%) 50 ml Q30M PRN IV Hypoglycemia 05/26/20 07:30 08/24/20 07:29 Furosemide (Lasix) 40 mg DAILY IV 05/29/20 09:00 06/28/20 08:59 05/29/20 09:47 Furosemide (Lasix) 40 mg ONCE IV 05/28/20 21:30 06/27/20 23:00 05/28/20 22:16 Insulin Aspart (NovoLOG) Q6HR SUBQ 05/26/20 12:00 08/24/20 11:59 05/29/20 12:20 Insulin Detemir (Levemir) 12 units BEDTIME SUBQ 05/28/20 22:30 08/26/20 22:29 Metoprolol Tartrate (Lopressor) 50 mg EVERY 8 HOURS GT 05/28/20 22:00 08/26/20 21:59 05/29/20 05:51 Nitroglycerin (Nitro-Bid) 1 inch TID@0600,1200,1800 TOPIC 05/27/20 18:00 06/26/20 17:59 05/29/20 12:13 Pantoprazole (Protonix) 40 mg DAILY IVP 05/26/20 09:00 06/25/20 08:59 05/29/20 09:47 Piperacillin Sod/ Tazobactam Sod 3.375 gm/Sodium Chloride 110 ml @ 27.5 mls/hr Q8H IVPB 05/26/20 10:00 06/02/20 09:59 05/29/20 09:48 Vancomycin HCl (Vanco pharmacy to dose) 1 ea DAILY PRN MISC Per rx protocol 05/26/20 07:00 06/25/20 06:59 Vancomycin HCl 750 mg/Sodium Chloride 275 ml @ 183.333 mls/hr Q12H IVPB 05/28/20 22:00 06/02/20 21:59 05/29/20 10:07 Colby Rock MD May 29, 2020 12:49
[2020-05-29 16:00] VITALS: BP 166/79
[2020-05-29] MEDS ORDERED: Tubing IV Secondary IV ONE ×2 (17:12→17:23)
[2020-05-29] MEDS ORDERED: NS 275ml ONE (17:21)
[2020-05-29 20:17] VITALS: BP 165/74
[2020-05-29] MEDS: Acetaminophen 650mg/20.3ml GT PRN (20:57)
[2020-05-29] MEDS: Levemir Flexpen SUBQ SCH (20:58)
--- NOTE | 2020-05-29 22:31 | Cardiology Progress Note ---
Subjective DATE OF SERVICE: May 29, 2020 On T-collar Moderate secretions Troponin levels decreasing. WBC decreasing; still glucose up. Monitor: Sinus with PAFIb and short runs of NSVT (14 beats today). Objective Last 24 Hour Vital Signs Date Time Temp Pulse Resp B/P (MAP) Pulse Ox O2 Delivery O2 Flow Rate FiO2 05/29/20 21:27 100.1 05/29/20 21:11 89 165/74 05/29/20 21:00 Trach Collar 8.0 05/29/20 20:17 100.8 89 24 165/74 (104) 100 05/29/20 19:00 100 T-Piece 5.0 28 05/29/20 18:23 99.3 05/29/20 18:04 166/79 05/29/20 16:00 79 05/29/20 16:00 100.0 85 22 166/79 (108) 99 05/29/20 13:19 86 162/76 05/29/20 12:16 98 T-Piece 5.0 28 05/29/20 12:13 162/76 05/29/20 12:00 86 05/29/20 12:00 98.6 83 22 162/76 (104) 99 05/29/20 09:15 97 T-Piece 5.0 28 05/29/20 09:00 Trach Collar 8.0 05/29/20 08:00 81 05/29/20 08:00 98.8 86 22 157/69 (98) 100 05/29/20 06:19 99.3 05/29/20 05:52 144/76 05/29/20 05:51 79 144/70 05/29/20 04:00 83 05/29/20 04:00 100.9 79 22 163/76 (105) 99 05/29/20 04:00 99.3 78 23 144/70 (94) 100 05/29/20 01:30 99.1 05/29/20 01:04 98 T-Piece 5.0 28 05/29/20 00:00 76 05/29/20 00:00 100.6 73 23 158/69 (98) 97 ROS: no change from my assessment of 05/25/20 - remains unobtainable from patient HEENT: normal ENT inspection, Thick Trach secretions RHYTHM: NSR, PACs LUNGS: diminished breath sounds - left, bilateral rhonchi CARDIAC: normal rate, regular rhythm, normal S1 and S2 ABDOMEN: normal bowel sounds, non tender, soft, G-Tube intact EXTREMITIES: trace edema, other - sacral decub. 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 No need for statin Add'l insulin rx John Heard MD May 29, 2020 22:31
[2020-05-30] MEDS: Piperacillin/Tazobactam 3.375 GM in NS 110 ML IVPB SCH ×3 (01:19→18:36)
[2020-05-30] MEDS: Acetaminophen 650mg/20.3ml GT PRN (01:20)
[2020-05-30 04:22] VITALS: BP 136/76
[2020-05-30 04:23] VITALS: BP 165/74
[2020-05-30] MEDS: Nitroglycerin 2% oint pkt TOPIC SCH ×3 (05:31→18:35)
[2020-05-30] MEDS: Metoprolol Tartrate 50mg tab GT SCH ×3 (05:31→21:17)
[2020-05-30] MEDS: NovoLOG Insulin Flexpen SUBQ SCH ×4 (05:34→23:56)
[2020-05-30 06:52] LABS: BASOPHILS % (AUTO) 0.6 % (0.0-2.0); EOSINOPHILS % (AUTO) 3.4 % (0.0-3.0); HEMATOCRIT 29.4 % (37.0-47.0); HEMOGLOBIN 9.3 G/DL (12.0-16.0); LYMPHOCYTES % (AUTO) 12.5 % (20.0-45.0); MEAN CORPUSCULAR VOLUME 78 FL (80-99); MONOCYTES % (AUTO) 7.9 % (1.0-10.0); NEUTROPHILS % (AUTO) 75.7 % (45.0-75.0); PLATELET COUNT 476 K/UL (150-450); RED BLOOD COUNT 3.79 M/UL (4.20-5.40); RED CELL DISTRIBUTION WIDTH 15.8 % (11.6-14.8); WHITE BLOOD COUNT 15.6 K/UL (4.8-10.8)
[2020-05-30 07:15] LABS: ALANINE AMINOTRANSFERASE 14 U/L (12-78); ALBUMIN 2.3 G/DL (3.4-5.0); ALBUMIN/GLOBULIN RATIO 0.5 (1.0-2.7); ALKALINE PHOSPHATASE 120 U/L (46-116); ANION GAP 7 mmol/L (5-15); ASPARTATE AMINO TRANSFERASE 14 U/L (15-37); BILIRUBIN,TOTAL 0.4 MG/DL (0.2-1.0); BLOOD UREA NITROGEN 16 mg/dL (7-18); CALCIUM 9.1 MG/DL (8.5-10.1); CARBON DIOXIDE 33 MMOL/L (21-32); CHLORIDE 99 MMOL/L (98-107); CREATININE 0.7 MG/DL (0.55-1.30); POTASSIUM 3.5 MMOL/L (3.5-5.1); SODIUM 139 MMOL/L (136-145)
[2020-05-30 08:00] VITALS: BP 163/75
--- NOTE | 2020-05-30 08:11 | Pulmonology Progress Note ---
Subjective ROS Limited/Unobtainable: Yes Constitutional: Reports: fever Allergies: Coded Allergies: No Known Allergies (Unverified , 05/15/20) Subjective care noted fevers noted wbc better Objective Last 24 Hour Vital Signs Date Time Temp Pulse Resp B/P (MAP) Pulse Ox O2 Delivery O2 Flow Rate FiO2 05/30/20 05:31 89 165/74 05/30/20 05:31 165/74 05/30/20 04:23 100.8 89 24 165/74 (104) 100 05/30/20 04:22 100.2 81 21 136/76 (96) 100 05/30/20 04:00 90 05/30/20 01:50 99.1 05/30/20 01:14 99 T-Piece 5.0 28 05/30/20 00:00 77 05/29/20 23:36 101.8 05/29/20 21:45 141 05/29/20 21:11 89 165/74 05/29/20 21:00 Trach Collar 8.0 05/29/20 21:00 100.0 05/29/20 20:17 100.8 89 24 165/74 (104) 100 05/29/20 20:00 80 05/29/20 19:00 100 T-Piece 5.0 28 05/29/20 18:23 99.3 05/29/20 18:04 166/79 05/29/20 16:00 79 05/29/20 16:00 100.0 85 22 166/79 (108) 99 05/29/20 13:19 86 162/76 05/29/20 12:16 98 T-Piece 5.0 28 05/29/20 12:13 162/76 05/29/20 12:00 86 05/29/20 12:00 98.6 83 22 162/76 (104) 99 05/29/20 09:15 97 T-Piece 5.0 28 05/29/20 09:00 Trach Collar 8.0 Intake and Output 05/29/20 05/30/20 19:00 07:00 Output Total 2000 ml 900 ml Balance -2000 ml -900 ml Output Urine Total 2000 ml 900 ml # Voids 2 1 # Bowel Movements 1 1 Objective WDWN NAD trach reduced breath sounds bilaterally with some rhonchi [id number] without MRG NABS nontender GT no CCE withdrawn Microbiology Date/Time Source Procedure Growth Status 05/29/20 06:00 Sputum Gram Stain - Final Resulted 05/29/20 06:00 Sputum Sputum Culture Pending Resulted 05/29/20 04:45 Indwelling Cath Urine Culture - Preliminary NO GROWTH Resulted Laboratory Tests 05/29/20 12:15: POC Whole Blood Glucose [Pending] 05/29/20 18:15: POC Whole Blood Glucose [Pending] 05/29/20 23:32: POC Whole Blood Glucose 285H 05/30/20 05:29: POC Whole Blood Glucose 270H 05/30/20 05:35: White Blood Count 15.6H, Red Blood Count 3.79L, Hemoglobin 9.3L, Hematocrit 29.4L, Mean Corpuscular Volume 78L, Mean Corpuscular Hemoglobin 24.5L, Mean Corpuscular Hemoglobin Concent 31.6L, Red Cell Distribution Width 15.8H, Platelet Count 476H, Mean Platelet Volume 7.6, Neutrophils (%) (Auto) 75.7H, Lymphocytes (%) (Auto) 12.5L, Monocytes (%) (Auto) 7.9, Eosinophils (%) (Auto) 3.4H, Basophils (%) (Auto) 0.6, Sodium Level 139, Potassium Level 3.5, Chloride Level 99, Carbon Dioxide Level 33H, Anion Gap 7, Blood Urea Nitrogen 16, Creatinine 0.7, Estimat Glomerular Filtration Rate > 60, Glucose Level 271H, Calcium Level 9.1, Magnesium Level [Pending], Total Bilirubin 0.4, Aspartate Amino Transf (AST/SGOT) 14L, Alanine Aminotransferase (ALT/SGPT) 14, Alkaline Phosphatase 120H, Pro-B-Type Natriuretic Peptide [Pending], Total Protein 6.9, Albumin 2.3L, Globulin 4.6, Albumin/Globulin Ratio 0.5L Current Medications Medications (Trade) Dose Ordered Sig/Cayden Route PRN Reason Start Time Stop Time Status Last Admin Dose Admin Acetaminophen (Tylenol) 650 mg Q4H PRN GT Pain 05/26/20 07:45 06/25/20 07:44 05/30/20 01:20 Apixaban (Eliquis) 5 mg BID GT 05/26/20 09:00 08/24/20 08:59 05/29/20 18:04 Ascorbic Acid (Vitamin C) 250 mg DAILY GT 05/28/20 09:00 06/27/20 08:59 05/29/20 09:47 Dextrose (Dextrose 50%) 25 ml Q30M PRN IV Hypoglycemia 05/26/20 07:30 08/24/20 07:29 Dextrose (Dextrose 50%) 50 ml Q30M PRN IV Hypoglycemia 05/26/20 07:30 08/24/20 07:29 Furosemide (Lasix) 40 mg DAILY IV 05/29/20 09:00 06/28/20 08:59 05/29/20 09:47 Furosemide (Lasix) 40 mg ONCE IV 05/28/20 21:30 06/27/20 23:00 05/29/20 21:11 Insulin Aspart (NovoLOG) Q6HR SUBQ 05/26/20 12:00 08/24/20 11:59 05/30/20 05:34 Insulin Detemir (Levemir) 15 units BEDTIME SUBQ 05/30/20 21:00 08/28/20 20:59 Metoprolol Tartrate (Lopressor) 50 mg EVERY 8 HOURS GT 05/28/20 22:00 08/26/20 21:59 05/30/20 05:31 Nitroglycerin (Nitro-Bid) 1 inch TID@0600,1200,1800 TOPIC 05/27/20 18:00 06/26/20 17:59 05/30/20 05:31 Pantoprazole (Protonix) 40 mg DAILY IVP 05/26/20 09:00 06/25/20 08:59 05/29/20 09:47 Piperacillin Sod/ Tazobactam Sod 3.375 gm/Sodium Chloride 110 ml @ 27.5 mls/hr Q8H IVPB 05/26/20 10:00 06/02/20 09:59 05/30/20 01:19 Assessment/Plan Assessment/Plan IMPRESSION leukocytosis sepsis Afib, chronic encephalopathy trach respiratory failure elevated troponin anemia bacteremia- staph fevers PLAN Iv antibiotics ID follow up and recommendations dc to snf when stable and fevers and wbc improved respiratory care snf meds suction monitor cultures eliquis and monitor HH card follow up impression, plan, and exam edited and reviewed in detail care discussed with Fernie Ledezma MD May 30, 2020 08:11
[2020-05-30] MEDS: Ascorbic Acid 500mg tab GT SCH (09:09)
[2020-05-30] MEDS: Eliquis 5mg tablet GT SCH ×2 (09:09→18:35)
[2020-05-30] MEDS: Pantoprazole Inj IVP SCH (09:13)
--- NOTE | 2020-05-30 10:56 | Infectious Diseases Prog Note ---
Assessment/Plan Assessment/Plan antibiotics : zosyn A 1. aspiration pneumonia 2. + blood cultures with coag neg staph likely contaminated 3. leucocytosis 4. diabetes mellitus 5. hypertension 6. CVA 7. dementia P 1. continue zosyn 2. will follow up cultures Subjective ROS Limited/Unobtainable: Yes Allergies: Coded Allergies: No Known Allergies (Unverified , 05/15/20) Objective Last 24 Hour Vital Signs Date Time Temp Pulse Resp B/P (MAP) Pulse Ox O2 Delivery O2 Flow Rate FiO2 05/30/20 08:00 99.3 75 18 163/75 (104) 100 05/30/20 08:00 76 05/30/20 07:50 99 T-Piece 5.0 28 05/30/20 05:31 89 165/74 05/30/20 05:31 165/74 05/30/20 04:23 100.8 89 24 165/74 (104) 100 05/30/20 04:22 100.2 81 21 136/76 (96) 100 05/30/20 04:00 90 05/30/20 01:50 99.1 05/30/20 01:14 99 T-Piece 5.0 28 05/30/20 00:00 77 05/29/20 23:36 101.8 05/29/20 21:45 141 05/29/20 21:11 89 165/74 05/29/20 21:00 Trach Collar 8.0 05/29/20 21:00 100.0 05/29/20 20:17 100.8 89 24 165/74 (104) 100 05/29/20 20:00 80 05/29/20 19:00 100 T-Piece 5.0 28 05/29/20 18:23 99.3 05/29/20 18:04 166/79 05/29/20 16:00 79 05/29/20 16:00 100.0 85 22 166/79 (108) 99 05/29/20 13:19 86 162/76 05/29/20 12:16 98 T-Piece 5.0 28 05/29/20 12:13 162/76 05/29/20 12:00 86 05/29/20 12:00 98.6 83 22 162/76 (104) 99 Height (Feet): 5 Height (Inches): 3.00 Weight (Pounds): 159 HEENT: status post trach Respiratory/Chest: lungs clear Cardiovascular: normal rate, regular rhythm, no gallop/murmur Abdomen: soft, non tender, other - GT Extremities: no edema Microbiology Date/Time Source Procedure Growth Status 05/29/20 06:00 Sputum Gram Stain - Final Resulted 05/29/20 06:00 Sputum Sputum Culture Pending Resulted 05/29/20 04:45 Indwelling Cath Urine Culture - Preliminary NO GROWTH Resulted Laboratory Tests Test 05/29/20 12:15 05/29/20 18:15 05/29/20 23:32 05/30/20 05:29 POC Whole Blood Glucose Pending Pending 285 MG/DL (74-106) H 270 MG/DL (74-106) H Test 05/30/20 05:35 White Blood Count 15.6 K/UL (4.8-10.8) H Red Blood Count 3.79 M/UL (4.20-5.40) L Hemoglobin 9.3 G/DL (12.0-16.0) L Hematocrit 29.4 % (37.0-47.0) L Mean Corpuscular Volume 78 FL (80-99) L Mean Corpuscular Hemoglobin 24.5 PG (27.0-31.0) L Mean Corpuscular Hemoglobin Concent 31.6 G/DL (32.0-36.0) L Red Cell Distribution Width 15.8 % (11.6-14.8) H Platelet Count 476 K/UL (150-450) H Mean Platelet Volume 7.6 FL (6.5-10.1) Neutrophils (%) (Auto) 75.7 % (45.0-75.0) H Lymphocytes (%) (Auto) 12.5 % (20.0-45.0) L Monocytes (%) (Auto) 7.9 % (1.0-10.0) Eosinophils (%) (Auto) 3.4 % (0.0-3.0) H Basophils (%) (Auto) 0.6 % (0.0-2.0) Sodium Level 139 MMOL/L (136-145) Potassium Level 3.5 MMOL/L (3.5-5.1) Chloride Level 99 MMOL/L (98-107) Carbon Dioxide Level 33 MMOL/L (21-32) H Anion Gap 7 mmol/L (5-15) Blood Urea Nitrogen 16 mg/dL (7-18) Creatinine 0.7 MG/DL (0.55-1.30) Estimat Glomerular Filtration Rate > 60 mL/min (>60) Glucose Level 271 MG/DL (74-106) H Calcium Level 9.1 MG/DL (8.5-10.1) Magnesium Level 1.7 MG/DL (1.8-2.4) L Total Bilirubin 0.4 MG/DL (0.2-1.0) Aspartate Amino Transf (AST/SGOT) 14 U/L (15-37) L Alanine Aminotransferase (ALT/SGPT) 14 U/L (12-78) Alkaline Phosphatase 120 U/L (46-116) H Pro-B-Type Natriuretic Peptide 5149 pg/mL (0-125) H Total Protein 6.9 G/DL (6.4-8.2) Albumin 2.3 G/DL (3.4-5.0) L Globulin 4.6 g/dL Albumin/Globulin Ratio 0.5 (1.0-2.7) L Current Medications Medications (Trade) Dose Ordered Sig/Cayden Route PRN Reason Start Time Stop Time Status Last Admin Dose Admin Acetaminophen (Tylenol) 650 mg Q4H PRN GT Pain 05/26/20 07:45 06/25/20 07:44 05/30/20 01:20 Apixaban (Eliquis) 5 mg BID GT 05/26/20 09:00 08/24/20 08:59 05/30/20 09:09 Ascorbic Acid (Vitamin C) 250 mg DAILY GT 05/28/20 09:00 06/27/20 08:59 05/30/20 09:09 Dextrose (Dextrose 50%) 25 ml Q30M PRN IV Hypoglycemia 05/26/20 07:30 08/24/20 07:29 Dextrose (Dextrose 50%) 50 ml Q30M PRN IV Hypoglycemia 05/26/20 07:30 08/24/20 07:29 Furosemide (Lasix) 40 mg DAILY IV 05/29/20 09:00 06/28/20 08:59 05/30/20 09:13 Furosemide (Lasix) 40 mg ONCE IV 05/28/20 21:30 06/27/20 23:00 05/29/20 21:11 Insulin Aspart (NovoLOG) Q6HR SUBQ 05/26/20 12:00 08/24/20 11:59 05/30/20 05:34 Insulin Detemir (Levemir) 15 units BEDTIME SUBQ 05/30/20 21:00 08/28/20 20:59 Metoprolol Tartrate (Lopressor) 50 mg EVERY 8 HOURS GT 05/28/20 22:00 08/26/20 21:59 05/30/20 05:31 Nitroglycerin (Nitro-Bid) 1 inch TID@0600,1200,1800 TOPIC 05/27/20 18:00 06/26/20 17:59 05/30/20 05:31 Pantoprazole (Protonix) 40 mg DAILY IVP 05/26/20 09:00 06/25/20 08:59 05/30/20 09:13 Piperacillin Sod/ Tazobactam Sod 3.375 gm/Sodium Chloride 110 ml @ 27.5 mls/hr Q8H IVPB 05/26/20 10:00 06/02/20 09:59 05/30/20 09:14 Mina Salamanca MD May 30, 2020 10:56
--- NOTE | 2020-05-30 11:26 | Cardiology Progress Note ---
Subjective DATE OF SERVICE: May 30, 2020 On T-collar Still with fevers. Decreasing secretions WBC still elevated; still glucose up. Monitor: Sinus with PAFIb and short runs of NSVT (14 beats last nite). Objective Last 24 Hour Vital Signs Date Time Temp Pulse Resp B/P (MAP) Pulse Ox O2 Delivery O2 Flow Rate FiO2 05/30/20 08:00 99.3 75 18 163/75 (104) 100 05/30/20 08:00 76 05/30/20 07:50 99 T-Piece 5.0 28 05/30/20 05:31 89 165/74 05/30/20 05:31 165/74 05/30/20 04:23 100.8 89 24 165/74 (104) 100 05/30/20 04:22 100.2 81 21 136/76 (96) 100 05/30/20 04:00 90 05/30/20 01:50 99.1 05/30/20 01:14 99 T-Piece 5.0 28 05/30/20 00:00 77 05/29/20 23:36 101.8 05/29/20 21:45 141 05/29/20 21:11 89 165/74 05/29/20 21:00 Trach Collar 8.0 05/29/20 21:00 100.0 05/29/20 20:17 100.8 89 24 165/74 (104) 100 05/29/20 20:00 80 05/29/20 19:00 100 T-Piece 5.0 28 05/29/20 18:23 99.3 05/29/20 18:04 166/79 05/29/20 16:00 79 05/29/20 16:00 100.0 85 22 166/79 (108) 99 05/29/20 13:19 86 162/76 05/29/20 12:16 98 T-Piece 5.0 28 05/29/20 12:13 162/76 05/29/20 12:00 86 05/29/20 12:00 98.6 83 22 162/76 (104) 99 ROS: no change from my assessment of 05/25/20 - remains unobtainable from patient HEENT: normal ENT inspection, Thick Trach secretions RHYTHM: NSR, PACs LUNGS: diminished breath sounds - left, bilateral rhonchi CARDIAC: normal rate, regular rhythm, normal S1 and S2 ABDOMEN: normal bowel sounds, non tender, soft, G-Tube intact EXTREMITIES: trace edema, other - sacral decub. noncommunicative Laboratory Tests Test 05/29/20 12:15 05/29/20 18:15 05/29/20 23:32 05/30/20 05:29 POC Whole Blood Glucose Pending Pending 285 MG/DL (74-106) H 270 MG/DL (74-106) H Test 05/30/20 05:35 White Blood Count 15.6 K/UL (4.8-10.8) H Red Blood Count 3.79 M/UL (4.20-5.40) L Hemoglobin 9.3 G/DL (12.0-16.0) L Hematocrit 29.4 % (37.0-47.0) L Mean Corpuscular Volume 78 FL (80-99) L Mean Corpuscular Hemoglobin 24.5 PG (27.0-31.0) L Mean Corpuscular Hemoglobin Concent 31.6 G/DL (32.0-36.0) L Red Cell Distribution Width 15.8 % (11.6-14.8) H Platelet Count 476 K/UL (150-450) H Mean Platelet Volume 7.6 FL (6.5-10.1) Neutrophils (%) (Auto) 75.7 % (45.0-75.0) H Lymphocytes (%) (Auto) 12.5 % (20.0-45.0) L Monocytes (%) (Auto) 7.9 % (1.0-10.0) Eosinophils (%) (Auto) 3.4 % (0.0-3.0) H Basophils (%) (Auto) 0.6 % (0.0-2.0) Sodium Level 139 MMOL/L (136-145) Potassium Level 3.5 MMOL/L (3.5-5.1) Chloride Level 99 MMOL/L (98-107) Carbon Dioxide Level 33 MMOL/L (21-32) H Anion Gap 7 mmol/L (5-15) Blood Urea Nitrogen 16 mg/dL (7-18) Creatinine 0.7 MG/DL (0.55-1.30) Estimat Glomerular Filtration Rate > 60 mL/min (>60) Glucose Level 271 MG/DL (74-106) H Calcium Level 9.1 MG/DL (8.5-10.1) Magnesium Level 1.7 MG/DL (1.8-2.4) L Total Bilirubin 0.4 MG/DL (0.2-1.0) Aspartate Amino Transf (AST/SGOT) 14 U/L (15-37) L Alanine Aminotransferase (ALT/SGPT) 14 U/L (12-78) Alkaline Phosphatase 120 U/L (46-116) H Pro-B-Type Natriuretic Peptide 5149 pg/mL (0-125) H Total Protein 6.9 G/DL (6.4-8.2) Albumin 2.3 G/DL (3.4-5.0) L Globulin 4.6 g/dL Albumin/Globulin Ratio 0.5 (1.0-2.7) L Microbiology Date/Time Source Procedure Growth Status 05/29/20 06:00 Sputum Gram Stain - Final Resulted 05/29/20 06:00 Sputum Sputum Culture Pending Resulted 05/29/20 04:45 Indwelling Cath Urine Culture - Preliminary NO GROWTH Resulted Assessment/Plan Assessment/Plan Healthcare associated PNA Left pleural effusion Acute myocardial ischemia with possible NSTE myocardial infarction Sepsis Respiratory failure Hypertension/HHD Parox AFib Conduction system disease with bifasc block Ac/chr diastolic CHF Low lipid parameters NSVT IRDM Hypomagnesemia Resp Rx Antimicrobials case monitor Off IVF; continue IV diuretic dosing, trend BNP, and monitor lytes Full anticoagulation Titrate CV regimen based on clinical parameters - advancing antianginal regimen , including beta pietro. No need for statin Add'l insulin rx Replace K+/Mg++. John Heard MD May 30, 2020 11:26
[2020-05-30 12:00] VITALS: BP 144/62
--- NOTE | 2020-05-30 13:06 | Surgery Progress Note ---
Surgery Progress Note Subjective Symptoms: improved, tolerating diet, passing flatus, BM Objective Last 24 Hour Vital Signs Date Time Temp Pulse Resp B/P (MAP) Pulse Ox O2 Delivery O2 Flow Rate FiO2 05/30/20 12:40 99 T-Piece 5.0 28 05/30/20 12:06 144/62 05/30/20 09:00 Trach Collar 8.0 05/30/20 08:00 99.3 75 18 163/75 (104) 100 05/30/20 08:00 76 05/30/20 07:50 99 T-Piece 5.0 28 05/30/20 05:31 89 165/74 05/30/20 05:31 165/74 05/30/20 04:23 100.8 89 24 165/74 (104) 100 05/30/20 04:22 100.2 81 21 136/76 (96) 100 05/30/20 04:00 90 05/30/20 01:50 99.1 05/30/20 01:14 99 T-Piece 5.0 28 05/30/20 00:00 77 05/29/20 23:36 101.8 05/29/20 21:45 141 05/29/20 21:11 89 165/74 05/29/20 21:00 Trach Collar 8.0 05/29/20 21:00 100.0 05/29/20 20:17 100.8 89 24 165/74 (104) 100 05/29/20 20:00 80 05/29/20 19:00 100 T-Piece 5.0 28 05/29/20 18:23 99.3 05/29/20 18:04 166/79 05/29/20 16:00 79 05/29/20 16:00 100.0 85 22 166/79 (108) 99 05/29/20 13:19 86 162/76 I&O Intake and Output 05/29/20 05/30/20 19:00 07:00 Output Total 2000 ml 900 ml Balance -2000 ml -900 ml Output Urine Total 2000 ml 900 ml # Voids 2 1 # Bowel Movements 1 1 Dressing: saturated Cardiovascular: RSR Respiratory: decreased breath sounds Abdomen: soft, non-tender, present bowel sounds Extremities: no tenderness, no cyanosis Laboratory Tests Test 05/29/20 18:15 05/29/20 23:32 05/30/20 05:29 05/30/20 05:35 POC Whole Blood Glucose Pending 285 MG/DL (74-106) H 270 MG/DL (74-106) H White Blood Count 15.6 K/UL (4.8-10.8) H Red Blood Count 3.79 M/UL (4.20-5.40) L Hemoglobin 9.3 G/DL (12.0-16.0) L Hematocrit 29.4 % (37.0-47.0) L Mean Corpuscular Volume 78 FL (80-99) L Mean Corpuscular Hemoglobin 24.5 PG (27.0-31.0) L Mean Corpuscular Hemoglobin Concent 31.6 G/DL (32.0-36.0) L Red Cell Distribution Width 15.8 % (11.6-14.8) H Platelet Count 476 K/UL (150-450) H Mean Platelet Volume 7.6 FL (6.5-10.1) Neutrophils (%) (Auto) 75.7 % (45.0-75.0) H Lymphocytes (%) (Auto) 12.5 % (20.0-45.0) L Monocytes (%) (Auto) 7.9 % (1.0-10.0) Eosinophils (%) (Auto) 3.4 % (0.0-3.0) H Basophils (%) (Auto) 0.6 % (0.0-2.0) Sodium Level 139 MMOL/L (136-145) Potassium Level 3.5 MMOL/L (3.5-5.1) Chloride Level 99 MMOL/L (98-107) Carbon Dioxide Level 33 MMOL/L (21-32) H Anion Gap 7 mmol/L (5-15) Blood Urea Nitrogen 16 mg/dL (7-18) Creatinine 0.7 MG/DL (0.55-1.30) Estimat Glomerular Filtration Rate > 60 mL/min (>60) Glucose Level 271 MG/DL (74-106) H Calcium Level 9.1 MG/DL (8.5-10.1) Magnesium Level 1.7 MG/DL (1.8-2.4) L Total Bilirubin 0.4 MG/DL (0.2-1.0) Aspartate Amino Transf (AST/SGOT) 14 U/L (15-37) L Alanine Aminotransferase (ALT/SGPT) 14 U/L (12-78) Alkaline Phosphatase 120 U/L (46-116) H Pro-B-Type Natriuretic Peptide 5149 pg/mL (0-125) H Total Protein 6.9 G/DL (6.4-8.2) Albumin 2.3 G/DL (3.4-5.0) L Globulin 4.6 g/dL Albumin/Globulin Ratio 0.5 (1.0-2.7) L Test 05/30/20 11:49 POC Whole Blood Glucose Pending Plan Problems: (1) Anemia (2) Sepsis Assessment & Plan: 74-year-old female with medical comorbidities present with leukocytosis anemia abnormal labs hypoalbuminemia failure to thrive malnutrition worsening decubitus ulcer admitted further care and management was prior on vancomycin now on IV antibiotics admitted and under monitoring. Full evaluation does not at the bedside and evaluation performed. Trach stable PEG tube stable skin deteriorating per her turgor worsening decubitus ulcer malnutrition continue tube feeds as tolerated continue antibiotics wounds unlikely etiology of patient's sepsis we will monitor and follow with recommendations trend labs thank you for letting participate patient's care DAILY ESTIMATED NEEDS: Needs based on Wound, DM/ 57kg abw 25-30 kcals/kg 5500-1755 total kcals 1.25-1.8 g protein/kg 71-103 g total protein 20-25 mL/kg 2003-2590 total fluid mLs NUTRITION DIAGNOSIS: * Increased kcal/prot needs R/T wound healing as evidenced by pt admiteed w/ unstageable sacral wound, refer to full wound care eval. * Swallowing difficulty R/T dysphagia, respiratory status as evidenced by pt on T-collar, PEG dep. CURRENT TF:Glucerna 1.2 @ 50ml/hr x 24 hrs ENTERAL NUTRITION RECOMMENDATIONS: Glucerna 1.2 @ 50ml/hr x 24 hrs to provide 1200ml, 1440kcal, 72g, 966ml free water * Maintain current TF * HOB over 30 degrees/ water flush per MD ADDITIONAL RECOMMENDATIONS: * Calibrated bedscale wt -w/ added p200 mattress + pump * Wound healing: TF @ goal will provide 100% RDI Add Vit C 250mg QD + Endy BID via PEG * Monitor lytes closely w/ Lasix, replete as needed (3) Elevated troponin (4) Pneumonia (5) Encounter for generalized patient complaints (6) Decubitus skin ulcer Assessment & Plan: Patient presented on admission with an Unstageable Sacral Pressure injury(L)9.8cm x (W)6.7cm. Base of wound is 80% necrotic ,20% mixed slough ,beefy red. Small amt serous exudate. Mild odor noted. Borders are macerated with surrounding maroon and indurated borders. MASD noted to Mons-pubis outer aspects of R and L buttocks. Perineum and bilat ischial tuberosities. Affected areas mentioned are erythematous, macerated with scattered satellite lesions. Non-Blanchable erythema without induration or fluctuance R and L Heels. Skin assessed under tracheal collar and no evidence of skin breakdown noted. Assessed pt and necrotic base of Sacral wound crosshatched by Md. Pineda.Plan: Cleanse Sacral wound with Saline. Apply TheraHoney. Apply Moisture Barrier Paste periwound. Cover with Optifoam Drsg. Change Daily and prn. Apply Moisture Barrier Paste to Mons Pubis, Perineum and buttocks with each Incontinence care. Apply Cavilon Skin Barrier to Both heels and Malleoli. Cover each site with Optifoam Drsg. Change every 7 days and prn. Reposition at least every 2hours or as tolerated. Off-load heels with Pillow. Reposition at least every 2hours or as tolerated. APM/DANIEL mattress overlay. Adrian Gar May 30, 2020 13:06
[2020-05-30 16:00] VITALS: BP 149/64
[2020-05-30 20:00] VITALS: BP 158/62
[2020-05-30] MEDS ORDERED: Levemir Flexpen SUBQ SCH (21:00)
[2020-05-30] MEDS: Levemir Flexpen SUBQ SCH (21:00)
[2020-05-31] VITALS: BP 151/60
[2020-05-31] MEDS: Piperacillin/Tazobactam 3.375 GM in NS 110 ML IVPB SCH ×3 (01:26→18:00)
[2020-05-31 04:00] VITALS: BP 161/72
[2020-05-31] MEDS: Metoprolol Tartrate 50mg tab GT SCH ×3 (05:14→21:17)
[2020-05-31] MEDS: Nitroglycerin 2% oint pkt TOPIC SCH ×3 (05:15→19:17)
[2020-05-31] MEDS: NovoLOG Insulin Flexpen SUBQ SCH ×3 (05:31→19:18)
[2020-05-31 06:52] LABS: EOSINOPHILS % (AUTO) 4.2 % (0.0-3.0); HEMATOCRIT 29.9 % (37.0-47.0); HEMOGLOBIN 9.4 G/DL (12.0-16.0); LYMPHOCYTES % (AUTO) 11.6 % (20.0-45.0); MEAN CORPUSCULAR VOLUME 77 FL (80-99); MONOCYTES % (AUTO) 7.3 % (1.0-10.0); NEUTROPHILS % (AUTO) 75.9 % (45.0-75.0); PLATELET COUNT 501 K/UL (150-450); RED BLOOD COUNT 3.87 M/UL (4.20-5.40); RED CELL DISTRIBUTION WIDTH 15.4 % (11.6-14.8); WHITE BLOOD COUNT 15.7 K/UL (4.8-10.8)
[2020-05-31 07:20] LABS: ANION GAP 5 mmol/L (5-15); BLOOD UREA NITROGEN 20 mg/dL (7-18); CALCIUM 9.2 MG/DL (8.5-10.1); CARBON DIOXIDE 34 MMOL/L (21-32); CHLORIDE 98 MMOL/L (98-107); CREATININE 0.8 MG/DL (0.55-1.30); POTASSIUM 3.9 MMOL/L (3.5-5.1); SODIUM 136 MMOL/L (136-145)
--- NOTE | 2020-05-31 07:49 | Pulmonology Progress Note ---
Subjective ROS Limited/Unobtainable: Yes Constitutional: Reports: fever Allergies: Coded Allergies: No Known Allergies (Unverified , 05/15/20) Subjective care noted fevers noted wbc better Objective Last 24 Hour Vital Signs Date Time Temp Pulse Resp B/P (MAP) Pulse Ox O2 Delivery O2 Flow Rate FiO2 05/31/20 05:15 161/72 05/31/20 05:14 78 161/72 05/31/20 04:00 87 05/31/20 04:00 99.1 78 18 161/72 (101) 99 05/31/20 01:21 99 T-Piece 5.0 28 05/31/20 00:00 99.3 84 18 151/60 (90) 100 05/31/20 00:00 85 05/30/20 21:17 90 160/78 05/30/20 21:00 Trach Collar 8.0 05/30/20 20:00 86 05/30/20 20:00 100.0 84 18 158/62 (94) 100 05/30/20 19:17 99 T-Piece 5.0 28 05/30/20 18:35 149/64 05/30/20 16:00 99.1 78 18 149/64 (92) 100 05/30/20 16:00 73 05/30/20 13:24 81 144/62 05/30/20 12:40 99 T-Piece 5.0 28 05/30/20 12:06 144/62 05/30/20 12:00 99.1 81 20 144/62 (89) 100 05/30/20 12:00 79 05/30/20 09:00 Trach Collar 8.0 05/30/20 08:00 99.3 75 18 163/75 (104) 100 05/30/20 08:00 76 05/30/20 07:50 99 T-Piece 5.0 28 Intake and Output 05/30/20 05/31/20 19:00 07:00 Output Total 600 ml 600 ml Balance -600 ml -600 ml Output Urine Total 600 ml 600 ml # Voids 1 # Bowel Movements 1 Objective WDWN NAD trach reduced breath sounds bilaterally with some rhonchi [id number] without MRG NABS nontender GT no CCE withdrawn Microbiology Date/Time Source Procedure Growth Status 05/29/20 06:30 Blood Blood Culture - Preliminary NO GROWTH AFTER 24 HOURS Resulted 05/29/20 06:25 Blood Blood Culture - Preliminary NO GROWTH AFTER 24 HOURS Resulted 05/29/20 06:00 Sputum Gram Stain - Final Resulted 05/29/20 06:00 Sputum Culture - Preliminary Gram Negative Bacillus 1 Resulted 05/29/20 04:45 Indwelling Cath Urine Culture - Preliminary NO GROWTH Resulted Laboratory Tests 05/30/20 11:49: POC Whole Blood Glucose [Pending] 05/30/20 18:42: POC Whole Blood Glucose 296H 05/30/20 22:16: POC Whole Blood Glucose 274H 05/30/20 23:53: POC Whole Blood Glucose [Pending] 05/31/20 05:28: POC Whole Blood Glucose [Pending] 05/31/20 06:15: White Blood Count 15.7H, Red Blood Count 3.87L, Hemoglobin 9.4L, Hematocrit 29.9L, Mean Corpuscular Volume 77L, Mean Corpuscular Hemoglobin 24.3L, Mean Corpuscular Hemoglobin Concent 31.4L, Red Cell Distribution Width 15.4H, Platelet Count 501H, Mean Platelet Volume 7.3, Neutrophils (%) (Auto) 75.9H, Lymphocytes (%) (Auto) 11.6L, Monocytes (%) (Auto) 7.3, Eosinophils (%) (Auto) 4.2H, Basophils (%) (Auto) 1.0, Sodium Level 136, Potassium Level 3.9, Chloride Level 98, Carbon Dioxide Level 34H, Anion Gap 5, Blood Urea Nitrogen 20H, Creatinine 0.8, Estimat Glomerular Filtration Rate > 60, Glucose Level 294H, Calcium Level 9.2, Pro-B-Type Natriuretic Peptide 3301H Current Medications Medications (Trade) Dose Ordered Sig/Cayden Route PRN Reason Start Time Stop Time Status Last Admin Dose Admin Acetaminophen (Tylenol) 650 mg Q4H PRN GT Pain 05/26/20 07:45 06/25/20 07:44 05/30/20 01:20 Apixaban (Eliquis) 5 mg BID GT 05/26/20 09:00 08/24/20 08:59 05/30/20 18:35 Ascorbic Acid (Vitamin C) 250 mg DAILY GT 05/28/20 09:00 06/27/20 08:59 05/30/20 09:09 Dextrose (Dextrose 50%) 25 ml Q30M PRN IV Hypoglycemia 05/26/20 07:30 08/24/20 07:29 Dextrose (Dextrose 50%) 50 ml Q30M PRN IV Hypoglycemia 05/26/20 07:30 08/24/20 07:29 Furosemide (Lasix) 40 mg DAILY IV 05/29/20 09:00 06/28/20 08:59 05/30/20 09:13 Furosemide (Lasix) 40 mg ONCE IV 05/28/20 21:30 06/27/20 23:00 05/30/20 21:17 Insulin Aspart (NovoLOG) Q6HR SUBQ 05/26/20 12:00 08/24/20 11:59 05/31/20 05:31 Insulin Detemir (Levemir) 18 units BEDTIME SUBQ 05/30/20 21:00 08/28/20 20:59 05/30/20 21:00 Metoprolol Tartrate (Lopressor) 50 mg EVERY 8 HOURS GT 05/28/20 22:00 08/26/20 21:59 05/31/20 05:14 Nitroglycerin (Nitro-Bid) 1 inch TID@0600,1200,1800 TOPIC 05/27/20 18:00 06/26/20 17:59 05/31/20 05:15 Pantoprazole (Protonix) 40 mg DAILY IVP 05/26/20 09:00 06/25/20 08:59 05/30/20 09:13 Piperacillin Sod/ Tazobactam Sod 3.375 gm/Sodium Chloride 110 ml @ 27.5 mls/hr Q8H IVPB 05/26/20 10:00 06/02/20 09:59 05/31/20 01:26 Assessment/Plan Assessment/Plan IMPRESSION leukocytosis sepsis Afib, chronic encephalopathy trach respiratory failure elevated troponin anemia bacteremia- staph fevers better PLAN Iv antibiotics ID follow up and recommendations and clearance dc to snf soon respiratory care snf meds suction monitor cultures eliquis and monitor HH card follow up impression, plan, and exam edited and reviewed in detail care discussed with Fernie Ledezma MD May 31, 2020 07:49
[2020-05-31 08:00] VITALS: BP 149/67
[2020-05-31] MEDS: Ascorbic Acid 500mg tab GT SCH (09:42)
[2020-05-31] MEDS: Eliquis 5mg tablet GT SCH ×2 (09:43→19:23)
[2020-05-31] MEDS: Pantoprazole Inj IVP SCH (09:43)
--- NOTE | 2020-05-31 10:37 | Infectious Diseases Prog Note ---
Assessment/Plan Assessment/Plan antibiotics : zosyn A 1. aspiration pneumonia with gram negative rods 2. + blood cultures with coag neg staph likely contaminated 3. leucocytosis 4. diabetes mellitus 5. hypertension 6. CVA 7. dementia P 1. continue zosyn 2. will follow up cultures Subjective ROS Limited/Unobtainable: Yes Allergies: Coded Allergies: No Known Allergies (Unverified , 05/15/20) Objective Last 24 Hour Vital Signs Date Time Temp Pulse Resp B/P (MAP) Pulse Ox O2 Delivery O2 Flow Rate FiO2 05/31/20 08:42 Trach Collar 8.0 05/31/20 08:00 96.3 74 20 149/67 (94) 100 05/31/20 06:45 100 T-Piece 5.0 28 05/31/20 05:15 161/72 05/31/20 05:14 78 161/72 05/31/20 04:00 87 05/31/20 04:00 99.1 78 18 161/72 (101) 99 05/31/20 01:21 99 T-Piece 5.0 28 05/31/20 00:00 99.3 84 18 151/60 (90) 100 05/31/20 00:00 85 05/30/20 21:17 90 160/78 05/30/20 21:00 Trach Collar 8.0 05/30/20 20:00 86 05/30/20 20:00 100.0 84 18 158/62 (94) 100 05/30/20 19:17 99 T-Piece 5.0 28 05/30/20 18:35 149/64 05/30/20 16:00 99.1 78 18 149/64 (92) 100 05/30/20 16:00 73 05/30/20 13:24 81 144/62 05/30/20 12:40 99 T-Piece 5.0 28 05/30/20 12:06 144/62 05/30/20 12:00 99.1 81 20 144/62 (89) 100 05/30/20 12:00 79 Height (Feet): 5 Height (Inches): 3.00 Weight (Pounds): 157 HEENT: status post trach Respiratory/Chest: lungs clear Cardiovascular: normal rate, regular rhythm, no gallop/murmur Abdomen: soft, non tender, other - GT Extremities: no edema Microbiology Date/Time Source Procedure Growth Status 05/29/20 06:30 Blood Blood Culture - Preliminary NO GROWTH AFTER 24 HOURS Resulted 05/29/20 06:25 Blood Blood Culture - Preliminary NO GROWTH AFTER 24 HOURS Resulted 05/29/20 06:00 Sputum Gram Stain - Final Resulted 05/29/20 06:00 Sputum Culture - Preliminary Gram Negative Bacillus 1 Resulted 05/29/20 04:45 Indwelling Cath Urine Culture - Preliminary NO GROWTH AFTER 24 HOURS Resulted Laboratory Tests Test 05/30/20 11:49 05/30/20 18:42 05/30/20 22:16 05/30/20 23:53 POC Whole Blood Glucose Pending 296 MG/DL (74-106) H 274 MG/DL (74-106) H Pending Test 05/31/20 05:28 05/31/20 06:15 POC Whole Blood Glucose Pending White Blood Count 15.7 K/UL (4.8-10.8) H Red Blood Count 3.87 M/UL (4.20-5.40) L Hemoglobin 9.4 G/DL (12.0-16.0) L Hematocrit 29.9 % (37.0-47.0) L Mean Corpuscular Volume 77 FL (80-99) L Mean Corpuscular Hemoglobin 24.3 PG (27.0-31.0) L Mean Corpuscular Hemoglobin Concent 31.4 G/DL (32.0-36.0) L Red Cell Distribution Width 15.4 % (11.6-14.8) H Platelet Count 501 K/UL (150-450) H Mean Platelet Volume 7.3 FL (6.5-10.1) Neutrophils (%) (Auto) 75.9 % (45.0-75.0) H Lymphocytes (%) (Auto) 11.6 % (20.0-45.0) L Monocytes (%) (Auto) 7.3 % (1.0-10.0) Eosinophils (%) (Auto) 4.2 % (0.0-3.0) H Basophils (%) (Auto) 1.0 % (0.0-2.0) Sodium Level 136 MMOL/L (136-145) Potassium Level 3.9 MMOL/L (3.5-5.1) Chloride Level 98 MMOL/L (98-107) Carbon Dioxide Level 34 MMOL/L (21-32) H Anion Gap 5 mmol/L (5-15) Blood Urea Nitrogen 20 mg/dL (7-18) H Creatinine 0.8 MG/DL (0.55-1.30) Estimat Glomerular Filtration Rate > 60 mL/min (>60) Glucose Level 294 MG/DL (74-106) H Calcium Level 9.2 MG/DL (8.5-10.1) Pro-B-Type Natriuretic Peptide 3301 pg/mL (0-125) H Current Medications Medications (Trade) Dose Ordered Sig/Cayden Route PRN Reason Start Time Stop Time Status Last Admin Dose Admin Acetaminophen (Tylenol) 650 mg Q4H PRN GT Pain 05/26/20 07:45 06/25/20 07:44 05/30/20 01:20 Apixaban (Eliquis) 5 mg BID GT 05/26/20 09:00 08/24/20 08:59 05/31/20 09:43 Ascorbic Acid (Vitamin C) 250 mg DAILY GT 05/28/20 09:00 06/27/20 08:59 05/31/20 09:42 Dextrose (Dextrose 50%) 25 ml Q30M PRN IV Hypoglycemia 05/26/20 07:30 08/24/20 07:29 Dextrose (Dextrose 50%) 50 ml Q30M PRN IV Hypoglycemia 05/26/20 07:30 08/24/20 07:29 Furosemide (Lasix) 40 mg DAILY IV 05/29/20 09:00 06/28/20 08:59 05/31/20 09:55 Furosemide (Lasix) 40 mg ONCE IV 05/28/20 21:30 06/27/20 23:00 05/30/20 21:17 Insulin Aspart (NovoLOG) Q6HR SUBQ 05/26/20 12:00 08/24/20 11:59 05/31/20 05:31 Insulin Detemir (Levemir) 18 units BEDTIME SUBQ 05/30/20 21:00 08/28/20 20:59 05/30/20 21:00 Metoprolol Tartrate (Lopressor) 50 mg EVERY 8 HOURS GT 05/28/20 22:00 08/26/20 21:59 05/31/20 05:14 Nitroglycerin (Nitro-Bid) 1 inch TID@0600,1200,1800 TOPIC 05/27/20 18:00 06/26/20 17:59 05/31/20 05:15 Pantoprazole (Protonix) 40 mg DAILY IVP 05/26/20 09:00 06/25/20 08:59 05/31/20 09:43 Piperacillin Sod/ Tazobactam Sod 3.375 gm/Sodium Chloride 110 ml @ 27.5 mls/hr Q8H IVPB 05/26/20 10:00 06/02/20 09:59 05/31/20 09:41 Mina Salamanca MD May 31, 2020 10:37
[2020-05-31 12:00] VITALS: BP 154/67
--- NOTE | 2020-05-31 13:56 | Surgery Progress Note ---
Surgery Progress Note Subjective Additional Comments blood cultures ngtd fevers persistent wbc stable on abx Objective Last 24 Hour Vital Signs Date Time Temp Pulse Resp B/P (MAP) Pulse Ox O2 Delivery O2 Flow Rate FiO2 05/31/20 12:54 154/67 05/31/20 12:47 95 T-Piece 5.0 28 05/31/20 12:00 89 05/31/20 12:00 99.3 83 20 154/67 (96) 97 05/31/20 08:42 Trach Collar 8.0 05/31/20 08:00 105 05/31/20 08:00 96.3 74 20 149/67 (94) 100 05/31/20 06:45 100 T-Piece 5.0 28 05/31/20 05:15 161/72 05/31/20 05:14 78 161/72 05/31/20 04:00 87 05/31/20 04:00 99.1 78 18 161/72 (101) 99 05/31/20 01:21 99 T-Piece 5.0 28 05/31/20 00:00 99.3 84 18 151/60 (90) 100 05/31/20 00:00 85 05/30/20 21:17 90 160/78 05/30/20 21:00 Trach Collar 8.0 05/30/20 20:00 86 05/30/20 20:00 100.0 84 18 158/62 (94) 100 05/30/20 19:17 99 T-Piece 5.0 28 05/30/20 18:35 149/64 05/30/20 16:00 99.1 78 18 149/64 (92) 100 05/30/20 16:00 73 I&O Intake and Output 05/30/20 05/31/20 19:00 07:00 Output Total 600 ml 600 ml Balance -600 ml -600 ml Output Urine Total 600 ml 600 ml # Voids 1 # Bowel Movements 1 Dressing: saturated Cardiovascular: RSR Respiratory: decreased breath sounds Abdomen: soft, non-tender, present bowel sounds Extremities: no tenderness, no cyanosis Laboratory Tests Test 05/30/20 18:42 05/30/20 22:16 05/30/20 23:53 05/31/20 05:28 POC Whole Blood Glucose 296 MG/DL (74-106) H 274 MG/DL (74-106) H Pending Pending Test 05/31/20 06:15 05/31/20 13:04 White Blood Count 15.7 K/UL (4.8-10.8) H Red Blood Count 3.87 M/UL (4.20-5.40) L Hemoglobin 9.4 G/DL (12.0-16.0) L Hematocrit 29.9 % (37.0-47.0) L Mean Corpuscular Volume 77 FL (80-99) L Mean Corpuscular Hemoglobin 24.3 PG (27.0-31.0) L Mean Corpuscular Hemoglobin Concent 31.4 G/DL (32.0-36.0) L Red Cell Distribution Width 15.4 % (11.6-14.8) H Platelet Count 501 K/UL (150-450) H Mean Platelet Volume 7.3 FL (6.5-10.1) Neutrophils (%) (Auto) 75.9 % (45.0-75.0) H Lymphocytes (%) (Auto) 11.6 % (20.0-45.0) L Monocytes (%) (Auto) 7.3 % (1.0-10.0) Eosinophils (%) (Auto) 4.2 % (0.0-3.0) H Basophils (%) (Auto) 1.0 % (0.0-2.0) Sodium Level 136 MMOL/L (136-145) Potassium Level 3.9 MMOL/L (3.5-5.1) Chloride Level 98 MMOL/L (98-107) Carbon Dioxide Level 34 MMOL/L (21-32) H Anion Gap 5 mmol/L (5-15) Blood Urea Nitrogen 20 mg/dL (7-18) H Creatinine 0.8 MG/DL (0.55-1.30) Estimat Glomerular Filtration Rate > 60 mL/min (>60) Glucose Level 294 MG/DL (74-106) H Calcium Level 9.2 MG/DL (8.5-10.1) Pro-B-Type Natriuretic Peptide 3301 pg/mL (0-125) H POC Whole Blood Glucose 302 MG/DL (74-106) H Plan Problems: (1) Anemia (2) Sepsis Assessment & Plan: 74-year-old female with medical comorbidities present with leukocytosis anemia abnormal labs hypoalbuminemia failure to thrive malnutrition worsening decubitus ulcer admitted further care and management was prior on vancomycin now on IV antibiotics admitted and under monitoring. Full evaluation does not at the bedside and evaluation performed. Trach stable PEG tube stable skin deteriorating per her turgor worsening decubitus ulcer malnutrition continue tube feeds as tolerated continue antibiotics wounds unlikely etiology of patient's sepsis we will monitor and follow with recommendations trend labs thank you for letting participate patient's care DAILY ESTIMATED NEEDS: Needs based on Wound, DM/ 57kg abw 25-30 kcals/kg 7383-7184 total kcals 1.25-1.8 g protein/kg 71-103 g total protein 20-25 mL/kg 5626-1337 total fluid mLs NUTRITION DIAGNOSIS: * Increased kcal/prot needs R/T wound healing as evidenced by pt admiteed w/ unstageable sacral wound, refer to full wound care eval. * Swallowing difficulty R/T dysphagia, respiratory status as evidenced by pt on T-collar, PEG dep. CURRENT TF:Glucerna 1.2 @ 50ml/hr x 24 hrs ENTERAL NUTRITION RECOMMENDATIONS: Glucerna 1.2 @ 50ml/hr x 24 hrs to provide 1200ml, 1440kcal, 72g, 966ml free water * Maintain current TF * HOB over 30 degrees/ water flush per MD ADDITIONAL RECOMMENDATIONS: * Calibrated bedscale wt -w/ added p200 mattress + pump * Wound healing: TF @ goal will provide 100% RDI Add Vit C 250mg QD + Endy BID via PEG * Monitor lytes closely w/ Lasix, replete as needed (3) Elevated troponin (4) Pneumonia (5) Encounter for generalized patient complaints (6) Decubitus skin ulcer Assessment & Plan: Patient presented on admission with an Unstageable Sacral Pressure injury(L)9.8cm x (W)6.7cm. Base of wound is 80% necrotic ,20% mixed slough ,beefy red. Small amt serous exudate. Mild odor noted. Borders are macerated with surrounding maroon and indurated borders. MASD noted to Mons-pubis outer aspects of R and L buttocks. Perineum and bilat ischial tuberosities. Affected areas mentioned are erythematous, macerated with scattered satellite lesions. Non-Blanchable erythema without induration or fluctuance R and L Heels. Skin assessed under tracheal collar and no evidence of skin breakdown noted. Assessed pt and necrotic base of Sacral wound crosshatched by Md. Pineda.Plan: Cleanse Sacral wound with Saline. Apply TheraHoney. Apply Moisture Barrier Paste periwound. Cover with Optifoam Drsg. Change Daily and prn. Apply Moisture Barrier Paste to Mons Pubis, Perineum and buttocks with each Incontinence care. Apply Cavilon Skin Barrier to Both heels and Malleoli. Cover each site with Optifoam Drsg. Change every 7 days and prn. Reposition at least every 2hours or as tolerated. Off-load heels with Pillow. Reposition at least every 2hours or as tolerated. APM/DANIEL mattress overlay. Adrian Gar May 31, 2020 13:56
[2020-05-31] MEDS: Acetaminophen 650mg/20.3ml GT PRN (16:42)
[2020-05-31 20:00] VITALS: BP 112/62
[2020-05-31] MEDS: Levemir Flexpen SUBQ SCH (21:18)
[2020-06-01] VITALS: BP 158/76
[2020-06-01] MEDS: NovoLOG Insulin Flexpen SUBQ SCH ×4 (00:16→17:39)
--- NOTE | 2020-06-01 01:36 | Cardiology Progress Note ---
Subjective DATE OF SERVICE: May 31, 2020 On T-collar Sputum culture wiht gm neg rods Decreasing secretions WBC still elevated; still glucose up. Monitor: Sinus with PAFIb and short runs of NSVT (14 beats last nite). Objective Last 24 Hour Vital Signs Date Time Temp Pulse Resp B/P (MAP) Pulse Ox O2 Delivery O2 Flow Rate FiO2 06/01/20 00:00 99.9 92 22 158/76 (103) 100 06/01/20 00:00 93 05/31/20 21:17 85 112/62 05/31/20 21:00 Trach Collar 8.0 05/31/20 20:00 80 05/31/20 20:00 99.5 85 18 112/62 (79) 97 05/31/20 19:17 131/61 05/31/20 19:17 97 T-Piece 5.0 28 05/31/20 17:12 99.1 05/31/20 16:00 81 05/31/20 14:34 88 129/66 05/31/20 12:54 154/67 05/31/20 12:47 95 T-Piece 5.0 28 05/31/20 12:00 89 05/31/20 12:00 99.3 83 20 154/67 (96) 97 05/31/20 08:42 Trach Collar 8.0 05/31/20 08:00 105 05/31/20 08:00 96.3 74 20 149/67 (94) 100 05/31/20 06:45 100 T-Piece 5.0 28 05/31/20 05:15 161/72 05/31/20 05:14 78 161/72 05/31/20 04:00 87 05/31/20 04:00 99.1 78 18 161/72 (101) 99 ROS: no change from my assessment of 05/25/20 - remains unobtainable from patient HEENT: normal ENT inspection, Thick Trach secretions RHYTHM: NSR, PACs LUNGS: diminished breath sounds - left, bilateral rhonchi CARDIAC: normal rate, regular rhythm, normal S1 and S2 ABDOMEN: normal bowel sounds, non tender, soft, G-Tube intact EXTREMITIES: trace edema, other - sacral decub. noncommunicative Laboratory Tests Test 05/31/20 05:28 05/31/20 06:15 05/31/20 13:04 05/31/20 18:37 POC Whole Blood Glucose Pending 302 MG/DL (74-106) H Pending White Blood Count 15.7 K/UL (4.8-10.8) H Red Blood Count 3.87 M/UL (4.20-5.40) L Hemoglobin 9.4 G/DL (12.0-16.0) L Hematocrit 29.9 % (37.0-47.0) L Mean Corpuscular Volume 77 FL (80-99) L Mean Corpuscular Hemoglobin 24.3 PG (27.0-31.0) L Mean Corpuscular Hemoglobin Concent 31.4 G/DL (32.0-36.0) L Red Cell Distribution Width 15.4 % (11.6-14.8) H Platelet Count 501 K/UL (150-450) H Mean Platelet Volume 7.3 FL (6.5-10.1) Neutrophils (%) (Auto) 75.9 % (45.0-75.0) H Lymphocytes (%) (Auto) 11.6 % (20.0-45.0) L Monocytes (%) (Auto) 7.3 % (1.0-10.0) Eosinophils (%) (Auto) 4.2 % (0.0-3.0) H Basophils (%) (Auto) 1.0 % (0.0-2.0) Sodium Level 136 MMOL/L (136-145) Potassium Level 3.9 MMOL/L (3.5-5.1) Chloride Level 98 MMOL/L (98-107) Carbon Dioxide Level 34 MMOL/L (21-32) H Anion Gap 5 mmol/L (5-15) Blood Urea Nitrogen 20 mg/dL (7-18) H Creatinine 0.8 MG/DL (0.55-1.30) Estimat Glomerular Filtration Rate > 60 mL/min (>60) Glucose Level 294 MG/DL (74-106) H Calcium Level 9.2 MG/DL (8.5-10.1) Pro-B-Type Natriuretic Peptide 3301 pg/mL (0-125) H Test 05/31/20 21:15 06/01/20 00:10 POC Whole Blood Glucose 239 MG/DL (74-106) H 276 MG/DL (74-106) H Microbiology Date/Time Source Procedure Growth Status 05/29/20 06:30 Blood Blood Culture - Preliminary NO GROWTH AFTER 24 HOURS Resulted 05/29/20 06:25 Blood Blood Culture - Preliminary NO GROWTH AFTER 24 HOURS Resulted 05/29/20 06:00 Sputum Gram Stain - Final Resulted 05/29/20 06:00 Sputum Culture - Preliminary Gram Negative Bacillus 1 Resulted 05/29/20 04:45 Indwelling Cath Urine Culture - Preliminary NO GROWTH AFTER 24 HOURS Resulted Assessment/Plan Assessment/Plan Healthcare associated PNA Left pleural effusion Acute myocardial ischemia with possible NSTE myocardial infarction Sepsis Respiratory failure Hypertension/HHD Parox AFib Conduction system disease with bifasc block Ac/chr diastolic CHF Low lipid parameters NSVT IRDM Hypomagnesemia Resp Rx Antimicrobials; follow-up new sputum culture result administration dean Off IVF; continue IV diuretic dosing, trend BNP, and monitor lytes Full anticoagulation Titrate CV regimen based on clinical parameters - advancing antianginal regimen , including beta pietro. No need for statin Add'l insulin rx Replace K+/Mg++. John Heard MD Jun 01, 2020 01:36
[2020-06-01] MEDS: Piperacillin/Tazobactam 3.375 GM in NS 110 ML IVPB SCH (01:53)
[2020-06-01 04:00] VITALS: BP 151/65
[2020-06-01] MEDS: Nitroglycerin 2% oint pkt TOPIC SCH ×3 (06:00→17:38)
[2020-06-01] MEDS: Metoprolol Tartrate 50mg tab GT SCH ×3 (06:00→21:50)
[2020-06-01 08:02] VITALS: BP 127/60
[2020-06-01] MEDS: Pantoprazole Inj IVP SCH (08:26)
[2020-06-01] MEDS: Ascorbic Acid 500mg tab GT SCH (08:27)
[2020-06-01] MEDS: Eliquis 5mg tablet GT SCH ×2 (08:27→17:38)
[2020-06-01] MEDS: Acetaminophen 650mg/20.3ml GT PRN (08:28)
--- NOTE | 2020-06-01 09:07 | Pulmonology Progress Note ---
Subjective ROS Limited/Unobtainable: Yes Constitutional: Reports: fever Allergies: Coded Allergies: No Known Allergies (Unverified , 05/15/20) Subjective care noted fevers noted wbc better Objective Last 24 Hour Vital Signs Date Time Temp Pulse Resp B/P (MAP) Pulse Ox O2 Delivery O2 Flow Rate FiO2 06/01/20 08:02 100.8 82 20 127/60 (82) 99 06/01/20 07:05 100 T-Piece 5.0 28 06/01/20 06:00 91 151/65 06/01/20 06:00 151/65 06/01/20 04:00 91 06/01/20 04:00 99.0 93 19 151/65 (93) 99 06/01/20 01:46 98 T-Piece 5.0 28 06/01/20 00:00 99.9 92 22 158/76 (103) 100 06/01/20 00:00 93 05/31/20 21:17 85 112/62 05/31/20 21:00 Trach Collar 8.0 05/31/20 20:00 80 05/31/20 20:00 99.5 85 18 112/62 (79) 97 05/31/20 19:17 131/61 05/31/20 19:17 97 T-Piece 5.0 28 05/31/20 17:12 99.1 05/31/20 16:00 81 05/31/20 14:34 88 129/66 05/31/20 12:54 154/67 05/31/20 12:47 95 T-Piece 5.0 28 05/31/20 12:00 89 05/31/20 12:00 99.3 83 20 154/67 (96) 97 Intake and Output 05/31/20 06/01/20 19:00 07:00 Output Total 850 ml 600 ml Balance -850 ml -600 ml Output Urine Total 850 ml 600 ml # Voids 1 # Bowel Movements 1 2 Objective WDWN NAD trach reduced breath sounds bilaterally with some rhonchi [id number] without MRG NABS nontender GT no CCE withdrawn Laboratory Tests 05/31/20 13:04: POC Whole Blood Glucose 302H 05/31/20 18:37: POC Whole Blood Glucose [Pending] 05/31/20 21:15: POC Whole Blood Glucose 239H 06/01/20 00:10: POC Whole Blood Glucose 276H 06/01/20 06:29: POC Whole Blood Glucose [Pending] Current Medications Medications (Trade) Dose Ordered Sig/Cayden Route PRN Reason Start Time Stop Time Status Last Admin Dose Admin Acetaminophen (Tylenol) 650 mg Q4H PRN GT Pain 05/26/20 07:45 06/25/20 07:44 06/01/20 08:28 Apixaban (Eliquis) 5 mg BID GT 05/26/20 09:00 08/24/20 08:59 06/01/20 08:27 Ascorbic Acid (Vitamin C) 250 mg DAILY GT 05/28/20 09:00 06/27/20 08:59 06/01/20 08:27 Dextrose (Dextrose 50%) 25 ml Q30M PRN IV Hypoglycemia 05/26/20 07:30 08/24/20 07:29 Dextrose (Dextrose 50%) 50 ml Q30M PRN IV Hypoglycemia 05/26/20 07:30 08/24/20 07:29 Furosemide (Lasix) 40 mg DAILY IV 05/29/20 09:00 06/28/20 08:59 06/01/20 08:26 Insulin Aspart (NovoLOG) Q6HR SUBQ 05/26/20 12:00 08/24/20 11:59 06/01/20 06:00 Insulin Detemir (Levemir) 22 units BEDTIME SUBQ 06/01/20 21:00 08/30/20 20:59 Metoprolol Tartrate (Lopressor) 50 mg EVERY 8 HOURS GT 05/28/20 22:00 08/26/20 21:59 06/01/20 06:00 Nitroglycerin (Nitro-Bid) 1 inch TID@0600,1200,1800 TOPIC 05/27/20 18:00 06/26/20 17:59 06/01/20 06:00 Pantoprazole (Protonix) 40 mg DAILY IVP 05/26/20 09:00 06/25/20 08:59 06/01/20 08:26 Piperacillin Sod/ Tazobactam Sod 3.375 gm/Sodium Chloride 110 ml @ 27.5 mls/hr Q8H IVPB 05/26/20 10:00 06/04/20 23:59 06/01/20 01:53 Assessment/Plan Assessment/Plan IMPRESSION leukocytosis sepsis Afib, chronic encephalopathy trach respiratory failure elevated troponin anemia bacteremia- staph fevers better PLAN Iv antibiotics ID follow up and recommendations and clearance dc to snf soon pending ID clearance respiratory care snf meds suction monitor cultures eliquis and monitor HH card follow up impression, plan, and exam edited and reviewed in detail care discussed with Fernie Ledezma MD Jun 01, 2020 09:07
--- NOTE | 2020-06-01 10:26 | Infectious Diseases Prog Note ---
Assessment/Plan Assessment/Plan antibiotics : zosyn A 1. aspiration pneumonia with acenitobacter 2. + blood cultures with coag neg staph likely contaminated 3. leucocytosis 4. diabetes mellitus 5. hypertension 6. CVA 7. dementia P 1. d/c zosyn 2. start inhaled colistin 3. will follow up cultures Subjective ROS Limited/Unobtainable: Yes Allergies: Coded Allergies: No Known Allergies (Unverified , 05/15/20) Objective Last 24 Hour Vital Signs Date Time Temp Pulse Resp B/P (MAP) Pulse Ox O2 Delivery O2 Flow Rate FiO2 06/01/20 08:02 100.8 82 20 127/60 (82) 99 06/01/20 07:05 100 T-Piece 5.0 28 06/01/20 06:00 91 151/65 06/01/20 06:00 151/65 06/01/20 04:00 91 06/01/20 04:00 99.0 93 19 151/65 (93) 99 06/01/20 01:46 98 T-Piece 5.0 28 06/01/20 00:00 99.9 92 22 158/76 (103) 100 06/01/20 00:00 93 05/31/20 21:17 85 112/62 05/31/20 21:00 Trach Collar 8.0 05/31/20 20:00 80 05/31/20 20:00 99.5 85 18 112/62 (79) 97 05/31/20 19:17 131/61 05/31/20 19:17 97 T-Piece 5.0 28 05/31/20 17:12 99.1 05/31/20 16:00 81 05/31/20 14:34 88 129/66 05/31/20 12:54 154/67 05/31/20 12:47 95 T-Piece 5.0 28 05/31/20 12:00 89 05/31/20 12:00 99.3 83 20 154/67 (96) 97 Height (Feet): 5 Height (Inches): 3.00 Weight (Pounds): 157 HEENT: status post trach Respiratory/Chest: lungs clear Cardiovascular: normal rate, regular rhythm, no gallop/murmur Abdomen: soft, non tender, other - GT Extremities: no edema Laboratory Tests Test 05/31/20 13:04 05/31/20 18:37 05/31/20 21:15 06/01/20 00:10 POC Whole Blood Glucose 302 MG/DL (74-106) H Pending 239 MG/DL (74-106) H 276 MG/DL (74-106) H Test 06/01/20 06:29 POC Whole Blood Glucose Pending Current Medications Medications (Trade) Dose Ordered Sig/Cayden Route PRN Reason Start Time Stop Time Status Last Admin Dose Admin Acetaminophen (Tylenol) 650 mg Q4H PRN GT Pain 05/26/20 07:45 06/25/20 07:44 06/01/20 08:28 Apixaban (Eliquis) 5 mg BID GT 05/26/20 09:00 08/24/20 08:59 06/01/20 08:27 Ascorbic Acid (Vitamin C) 250 mg DAILY GT 05/28/20 09:00 06/27/20 08:59 06/01/20 08:27 Dextrose (Dextrose 50%) 25 ml Q30M PRN IV Hypoglycemia 05/26/20 07:30 08/24/20 07:29 Dextrose (Dextrose 50%) 50 ml Q30M PRN IV Hypoglycemia 05/26/20 07:30 08/24/20 07:29 Furosemide (Lasix) 40 mg DAILY IV 05/29/20 09:00 06/28/20 08:59 06/01/20 08:26 Insulin Aspart (NovoLOG) Q6HR SUBQ 05/26/20 12:00 08/24/20 11:59 06/01/20 06:00 Insulin Detemir (Levemir) 22 units BEDTIME SUBQ 06/01/20 21:00 08/30/20 20:59 Metoprolol Tartrate (Lopressor) 50 mg EVERY 8 HOURS GT 05/28/20 22:00 08/26/20 21:59 06/01/20 06:00 Nitroglycerin (Nitro-Bid) 1 inch TID@0600,1200,1800 TOPIC 05/27/20 18:00 06/26/20 17:59 06/01/20 06:00 Pantoprazole (Protonix) 40 mg DAILY IVP 05/26/20 09:00 06/25/20 08:59 06/01/20 08:26 Piperacillin Sod/ Tazobactam Sod 3.375 gm/Sodium Chloride 110 ml @ 27.5 mls/hr Q8H IVPB 05/26/20 10:00 06/04/20 23:59 06/01/20 01:53 Mina Salamanca MD Jun 01, 2020 10:26
[2020-06-01 12:00] VITALS: BP 151/68
[2020-06-01] MEDS: Colistin for inhalation INH SCH ×2 (12:11→21:41)
[2020-06-01] MEDS ORDERED: Tubing IV Secondary IV ONE (13:49)
[2020-06-01] MEDS ORDERED: D5W 275ml ONE (13:49)
[2020-06-01 16:00] VITALS: BP 137/65
--- NOTE | 2020-06-01 18:15 | Surgery Progress Note ---
Surgery Progress Note Subjective Additional Comments labs stable comfortable appearing no n/v Objective Last 24 Hour Vital Signs Date Time Temp Pulse Resp B/P (MAP) Pulse Ox O2 Delivery O2 Flow Rate FiO2 06/01/20 17:38 137/65 06/01/20 16:00 89 06/01/20 16:00 100.0 89 20 137/65 (89) 100 06/01/20 14:37 84 157/58 06/01/20 14:37 157/58 06/01/20 12:12 92 20 100 Cool Aerosol 5.0 28 88 18 99 06/01/20 12:11 99 T-Piece 5.0 28 06/01/20 12:00 99.7 88 20 151/68 (95) 98 06/01/20 12:00 89 06/01/20 09:00 Trach Collar 8.0 06/01/20 08:58 99.6 06/01/20 08:02 100.8 82 20 127/60 (82) 99 06/01/20 08:00 84 06/01/20 07:05 100 T-Piece 5.0 06/01/20 06:00 91 151/65 06/01/20 06:00 151/65 06/01/20 04:00 91 06/01/20 04:00 99.0 93 19 151/65 (93) 99 06/01/20 01:46 98 T-Piece 5.0 06/01/20 00:00 99.9 92 22 158/76 (103) 100 06/01/20 00:00 93 05/31/20 21:17 85 112/62 05/31/20 21:00 Trach Collar 8.0 05/31/20 20:00 80 05/31/20 20:00 99.5 85 18 112/62 (79) 97 05/31/20 19:17 131/61 05/31/20 19:17 97 T-Piece 5.0 28 I&O Intake and Output 05/31/20 06/01/20 19:00 07:00 Output Total 850 ml 600 ml Balance -850 ml -600 ml Output Urine Total 850 ml 600 ml # Voids 1 # Bowel Movements 1 2 Dressing: saturated Cardiovascular: RSR Respiratory: clear, decreased breath sounds Abdomen: soft, non-tender, present bowel sounds Extremities: no edema, no tenderness, no cyanosis Laboratory Tests Test 05/31/20 18:37 05/31/20 21:15 06/01/20 00:10 06/01/20 06:29 POC Whole Blood Glucose Pending 239 MG/DL (74-106) H 276 MG/DL (74-106) H Pending Plan Problems: (1) Anemia (2) Sepsis Assessment & Plan: 74-year-old female with medical comorbidities present with leukocytosis anemia abnormal labs hypoalbuminemia failure to thrive malnutrition worsening decubitus ulcer admitted further care and management was prior on vancomycin now on IV antibiotics admitted and under monitoring. Full evaluation does not at the bedside and evaluation performed. Trach stable PEG tube stable skin deteriorating per her turgor worsening decubitus ulcer malnutrition continue tube feeds as tolerated continue antibiotics wounds unlikely etiology of patient's sepsis we will monitor and follow with recommendations trend labs thank you for letting participate patient's care DAILY ESTIMATED NEEDS: Needs based on Wound, DM/ 57kg abw 25-30 kcals/kg 6869-2200 total kcals 1.25-1.8 g protein/kg 71-103 g total protein 20-25 mL/kg 3408-3730 total fluid mLs NUTRITION DIAGNOSIS: * Increased kcal/prot needs R/T wound healing as evidenced by pt admiteed w/ unstageable sacral wound, refer to full wound care eval. * Swallowing difficulty R/T dysphagia, respiratory status as evidenced by pt on T-collar, PEG dep. CURRENT TF:Glucerna 1.2 @ 50ml/hr x 24 hrs ENTERAL NUTRITION RECOMMENDATIONS: Glucerna 1.2 @ 50ml/hr x 24 hrs to provide 1200ml, 1440kcal, 72g, 966ml free water * Maintain current TF * HOB over 30 degrees/ water flush per MD ADDITIONAL RECOMMENDATIONS: * Calibrated bedscale wt -w/ added p200 mattress + pump * Wound healing: TF @ goal will provide 100% RDI Add Vit C 250mg QD + Endy BID via PEG * Monitor lytes closely w/ Lasix, replete as needed (3) Elevated troponin (4) Pneumonia (5) Encounter for generalized patient complaints (6) Decubitus skin ulcer Assessment & Plan: Patient presented on admission with an Unstageable Sacral Pressure injury(L)9.8cm x (W)6.7cm. Base of wound is 80% necrotic ,20% mixed slough ,beefy red. Small amt serous exudate. Mild odor noted. Borders are macerated with surrounding maroon and indurated borders. MASD noted to Mons-pubis outer aspects of R and L buttocks. Perineum and bilat ischial tuberosities. Affected areas mentioned are erythematous, macerated with scattered satellite lesions. Non-Blanchable erythema without induration or fluctuance R and L Heels. Skin assessed under tracheal collar and no evidence of skin breakdown noted. Assessed pt and necrotic base of Sacral wound crosshatched by Md. Pineda.Plan: Cleanse Sacral wound with Saline. Apply TheraHoney. Apply Moisture Barrier Paste periwound. Cover with Optifoam Drsg. Change Daily and prn. Apply Moisture Barrier Paste to Mons Pubis, Perineum and buttocks with each Incontinence care. Apply Cavilon Skin Barrier to Both heels and Malleoli. Cover each site with Optifoam Drsg. Change every 7 days and prn. Reposition at least every 2hours or as tolerated. Off-load heels with Pillow. Reposition at least every 2hours or as tolerated. APM/DANIEL mattress overlay. Adrian Gar Jun 01, 2020 18:15
[2020-06-01 20:00] VITALS: BP 139/68
[2020-06-01] MEDS ORDERED: Levemir Flexpen SUBQ SCH (21:00)
[2020-06-02] VITALS: BP 138/58
[2020-06-02] MEDS: NovoLOG Insulin Flexpen SUBQ SCH ×5 (00:03→23:26)
--- NOTE | 2020-06-02 02:24 | Cardiology Progress Note ---
Subjective DATE OF SERVICE: Jun 01, 2020 On T-collar Sputum culture wiht gm neg rods Decreasing secretions WBC still improved; still glucose up. Monitor: Sinus with PAFIb and short runs of aberrancy. Objective Last 24 Hour Vital Signs Date Time Temp Pulse Resp B/P (MAP) Pulse Ox O2 Delivery O2 Flow Rate FiO2 06/02/20 00:48 99 T-Piece 5.0 28 06/02/20 00:00 73 06/02/20 00:00 100.0 73 20 138/58 (84) 100 06/01/20 21:50 88 142/75 06/01/20 21:41 81 18 100 Cool Aerosol 5.0 28 76 18 98 06/01/20 21:00 Trach Collar 8.0 Trach Collar 06/01/20 20:00 99.8 79 19 139/68 (91) 100 06/01/20 20:00 72 06/01/20 19:54 98 T-Piece 5.0 28 06/01/20 17:38 137/65 06/01/20 16:00 89 06/01/20 16:00 100.0 89 20 137/65 (89) 100 06/01/20 14:37 84 157/58 06/01/20 14:37 157/58 06/01/20 12:12 92 20 100 Cool Aerosol 5.0 28 88 18 99 06/01/20 12:11 99 T-Piece 5.0 28 06/01/20 12:00 99.7 88 20 151/68 (95) 98 06/01/20 12:00 89 06/01/20 09:00 Trach Collar 8.0 06/01/20 08:58 99.6 06/01/20 08:02 100.8 82 20 127/60 (82) 99 06/01/20 08:00 84 06/01/20 07:05 100 T-Piece 5.0 28 06/01/20 06:00 91 151/65 06/01/20 06:00 151/65 06/01/20 04:00 91 06/01/20 04:00 99.0 93 19 151/65 (93) 99 ROS: no change from my assessment of 05/25/20 - remains unobtainable from patient HEENT: normal ENT inspection, Thick Trach secretions RHYTHM: NSR, PACs LUNGS: diminished breath sounds - left, bilateral rhonchi CARDIAC: normal rate, regular rhythm, normal S1 and S2 ABDOMEN: normal bowel sounds, non tender, soft, G-Tube intact EXTREMITIES: trace edema, other - sacral decub. noncommunicative Laboratory Tests Test 06/01/20 06:29 06/01/20 21:12 06/01/20 23:54 POC Whole Blood Glucose Pending 276 MG/DL (74-106) H 283 MG/DL (74-106) H Assessment/Plan Assessment/Plan Healthcare associated PNA Left pleural effusion Acute myocardial ischemia with possible NSTE myocardial infarction Sepsis Respiratory failure Hypertension/HHD Parox AFib Conduction system disease with bifasc block Ac/chr diastolic CHF Low lipid parameters NSVT IRDM Hypomagnesemia Resp Rx Antimicrobials; follow-up new sputum culture result site monitor Off IVF; titrate IV diuretic dosing, trend BNP, and monitor lytes Full anticoagulation Titrate CV regimen based on clinical parameters - advancing antianginal regimen , including beta pietro. No need for statin Add'l insulin rx Replace K+/Mg++. John Heard MD Jun 02, 2020 02:24
[2020-06-02 04:00] VITALS: BP 159/82
[2020-06-02] MEDS: Nitroglycerin 2% oint pkt TOPIC SCH (06:22)
[2020-06-02] MEDS: Metoprolol Tartrate 50mg tab GT SCH ×3 (06:22→21:59)
[2020-06-02 07:11] LABS: ANION GAP 7 mmol/L (5-15); BLOOD UREA NITROGEN 25 mg/dL (7-18); CALCIUM 9.5 MG/DL (8.5-10.1); CARBON DIOXIDE 34 MMOL/L (21-32); CHLORIDE 99 MMOL/L (98-107); CREATININE 0.7 MG/DL (0.55-1.30); SODIUM 140 MMOL/L (136-145)
[2020-06-02 08:00] VITALS: BP 149/69
[2020-06-02 08:07] LABS: BASOPHILS % (AUTO) 0.7 % (0.0-2.0); EOSINOPHILS % (AUTO) 4.4 % (0.0-3.0); HEMATOCRIT 29.1 % (37.0-47.0); HEMOGLOBIN 9.2 G/DL (12.0-16.0); LYMPHOCYTES % (AUTO) 14.5 % (20.0-45.0); MEAN CORPUSCULAR VOLUME 78 FL (80-99); MONOCYTES % (AUTO) 5.8 % (1.0-10.0); NEUTROPHILS % (AUTO) 74.6 % (45.0-75.0); PLATELET COUNT 413 K/UL (150-450); RED BLOOD COUNT 3.71 M/UL (4.20-5.40); RED CELL DISTRIBUTION WIDTH 16.9 % (11.6-14.8); WHITE BLOOD COUNT 14.1 K/UL (4.8-10.8)
[2020-06-02] MEDS: Colistin for inhalation INH SCH ×2 (08:09→21:35)
--- NOTE | 2020-06-02 08:18 | Pulmonology Progress Note ---
Subjective ROS Limited/Unobtainable: Yes Constitutional: Reports: fever Allergies: Coded Allergies: No Known Allergies (Unverified , 05/15/20) Subjective care noted MDRO wbc noted Objective Last 24 Hour Vital Signs Date Time Temp Pulse Resp B/P (MAP) Pulse Ox O2 Delivery O2 Flow Rate FiO2 06/02/20 06:22 79 153/69 06/02/20 06:22 153/69 06/02/20 04:00 99.7 73 21 159/82 (107) 100 06/02/20 04:00 87 06/02/20 00:48 99 T-Piece 5.0 28 06/02/20 00:00 73 06/02/20 00:00 100.0 73 20 138/58 (84) 100 06/01/20 21:50 88 142/75 06/01/20 21:41 81 18 100 Cool Aerosol 5.0 28 76 18 98 06/01/20 21:00 Trach Collar 8.0 Trach Collar 06/01/20 20:00 99.8 79 19 139/68 (91) 100 06/01/20 20:00 72 06/01/20 19:54 98 T-Piece 5.0 28 06/01/20 17:38 137/65 06/01/20 16:00 89 06/01/20 16:00 100.0 89 20 137/65 (89) 100 06/01/20 14:37 84 157/58 06/01/20 14:37 157/58 06/01/20 12:12 92 20 100 Cool Aerosol 5.0 28 88 18 99 06/01/20 12:11 99 T-Piece 5.0 28 06/01/20 12:00 99.7 88 20 151/68 (95) 98 06/01/20 12:00 89 06/01/20 09:00 Trach Collar 8.0 06/01/20 08:58 99.6 Intake and Output 06/01/20 06/02/20 19:00 07:00 Intake Total 50 ml Output Total 800 ml 750 ml Balance -800 ml -700 ml Tube Feeding 50 ml Output Urine Total 800 ml 750 ml # Bowel Movements 1 1 Objective WDWN NAD trach reduced breath sounds bilaterally with some rhonchi [id number] without MRG NABS nontender GT no CCE withdrawn Laboratory Tests 06/01/20 21:12: POC Whole Blood Glucose 276H 9/2/20 23:54: POC Whole Blood Glucose 283H 06/02/20 05:21: POC Whole Blood Glucose 288H 06/02/20 06:19: White Blood Count 14.1H, Red Blood Count 3.71L, Hemoglobin 9.2L, Hematocrit 29.1L, Mean Corpuscular Volume 78L, Mean Corpuscular Hemoglobin 24.9L, Mean Corpuscular Hemoglobin Concent 31.7L, Red Cell Distribution Width 16.9H, Platelet Count 413, Mean Platelet Volume 8.2, Neutrophils (%) (Auto) 74.6, Lymphocytes (%) (Auto) 14.5L, Monocytes (%) (Auto) 5.8, Eosinophils (%) (Auto) 4.4H, Basophils (%) (Auto) 0.7, Sodium Level 140, Potassium Level 4.0, Chloride Level 99, Carbon Dioxide Level 34H, Anion Gap 7, Blood Urea Nitrogen 25H, Creatinine 0.7, Estimat Glomerular Filtration Rate > 60, Glucose Level 266H, Calcium Level 9.5, Magnesium Level 2.1, Pro-B-Type Natriuretic Peptide 2496H Current Medications Medications (Trade) Dose Ordered Sig/Cayden Route PRN Reason Start Time Stop Time Status Last Admin Dose Admin Acetaminophen (Tylenol) 650 mg Q4H PRN GT Pain 05/26/20 07:45 06/25/20 07:44 06/01/20 08:28 Apixaban (Eliquis) 5 mg BID GT 05/26/20 09:00 08/24/20 08:59 06/01/20 17:38 Ascorbic Acid (Vitamin C) 250 mg DAILY GT 05/28/20 09:00 06/27/20 08:59 06/01/20 08:27 Colistimethate Sodium (Colistin *inhalation use only*) 75 mg Q12HR@10,22 INH 06/01/20 11:00 06/08/20 10:59 06/02/20 08:09 Dextrose (Dextrose 50%) 25 ml Q30M PRN IV Hypoglycemia 05/26/20 07:30 08/24/20 07:29 Dextrose (Dextrose 50%) 50 ml Q30M PRN IV Hypoglycemia 05/26/20 07:30 08/24/20 07:29 Furosemide (Lasix) 40 mg DAILY IV 05/29/20 09:00 06/28/20 08:59 06/01/20 08:26 Insulin Aspart (NovoLOG) Q6HR SUBQ 05/26/20 12:00 08/24/20 11:59 06/02/20 06:21 Insulin Detemir (Levemir) 25 units BEDTIME SUBQ 06/02/20 21:00 08/31/20 20:59 Metoprolol Tartrate (Lopressor) 50 mg EVERY 8 HOURS GT 05/28/20 22:00 08/26/20 21:59 06/02/20 06:22 Nitroglycerin (Nitro-Bid) 1 inch TID@0600,1200,1800 TOPIC 05/27/20 18:00 06/26/20 17:59 06/02/20 06:22 Pantoprazole (Protonix) 40 mg DAILY IVP 05/26/20 09:00 06/25/20 08:59 06/01/20 08:26 Assessment/Plan Assessment/Plan IMPRESSION leukocytosis sepsis Afib, chronic encephalopathy trach respiratory failure elevated troponin anemia bacteremia- staph fevers better PLAN inhaled colisitin isolation ID follow up and recommendations and clearance dc to snf soon pending ID clearance respiratory care snf meds suction monitor cultures eliquis and monitor HH card follow up impression, plan, and exam edited and reviewed in detail care discussed with Fernie Ledezma MD Jun 02, 2020 08:18
--- NOTE | 2020-06-02 09:40 | Surgery Progress Note ---
Surgery Progress Note Subjective Symptoms: improved Additional Comments wbc trending down comfortable micro reviewed Objective Last 24 Hour Vital Signs Date Time Temp Pulse Resp B/P (MAP) Pulse Ox O2 Delivery O2 Flow Rate FiO2 06/02/20 08:19 73 20 100 Cool Aerosol 5.0 28 69 20 99 06/02/20 08:04 100 T-Piece 5.0 28 06/02/20 08:00 97.7 81 19 149/69 (95) 100 06/02/20 06:22 79 153/69 06/02/20 06:22 153/69 06/02/20 04:00 99.7 73 21 159/82 (107) 100 06/02/20 04:00 87 06/02/20 00:48 99 T-Piece 5.0 28 06/02/20 00:00 73 06/02/20 00:00 100.0 73 20 138/58 (84) 100 06/01/20 21:50 88 142/75 06/01/20 21:41 81 18 100 Cool Aerosol 5.0 28 76 18 98 06/01/20 21:00 Trach Collar 8.0 Trach Collar 06/01/20 20:00 99.8 79 19 139/68 (91) 100 06/01/20 20:00 72 06/01/20 19:54 98 T-Piece 5.0 28 06/01/20 17:38 137/65 06/01/20 16:00 89 06/01/20 16:00 100.0 89 20 137/65 (89) 100 06/01/20 14:37 84 157/58 06/01/20 14:37 157/58 06/01/20 12:12 92 20 100 Cool Aerosol 5.0 28 88 18 99 06/01/20 12:11 99 T-Piece 5.0 28 06/01/20 12:00 99.7 88 20 151/68 (95) 98 06/01/20 12:00 89 I&O Intake and Output 06/01/20 06/02/20 19:00 07:00 Intake Total 50 ml Output Total 800 ml 750 ml Balance -800 ml -700 ml Tube Feeding 50 ml Output Urine Total 800 ml 750 ml # Bowel Movements 1 1 Dressing: other Wound: other Cardiovascular: RSR Respiratory: decreased breath sounds Abdomen: soft, non-tender, present bowel sounds Extremities: no tenderness, no cyanosis Laboratory Tests Test 06/01/20 21:12 06/01/20 23:54 06/02/20 05:21 06/02/20 06:19 POC Whole Blood Glucose 276 MG/DL (74-106) H 283 MG/DL (74-106) H 288 MG/DL (74-106) H White Blood Count 14.1 K/UL (4.8-10.8) H Red Blood Count 3.71 M/UL (4.20-5.40) L Hemoglobin 9.2 G/DL (12.0-16.0) L Hematocrit 29.1 % (37.0-47.0) L Mean Corpuscular Volume 78 FL (80-99) L Mean Corpuscular Hemoglobin 24.9 PG (27.0-31.0) L Mean Corpuscular Hemoglobin Concent 31.7 G/DL (32.0-36.0) L Red Cell Distribution Width 16.9 % (11.6-14.8) H Platelet Count 413 K/UL (150-450) Mean Platelet Volume 8.2 FL (6.5-10.1) Neutrophils (%) (Auto) 74.6 % (45.0-75.0) Lymphocytes (%) (Auto) 14.5 % (20.0-45.0) L Monocytes (%) (Auto) 5.8 % (1.0-10.0) Eosinophils (%) (Auto) 4.4 % (0.0-3.0) H Basophils (%) (Auto) 0.7 % (0.0-2.0) Sodium Level 140 MMOL/L (136-145) Potassium Level 4.0 MMOL/L (3.5-5.1) Chloride Level 99 MMOL/L (98-107) Carbon Dioxide Level 34 MMOL/L (21-32) H Anion Gap 7 mmol/L (5-15) Blood Urea Nitrogen 25 mg/dL (7-18) H Creatinine 0.7 MG/DL (0.55-1.30) Estimat Glomerular Filtration Rate > 60 mL/min (>60) Glucose Level 266 MG/DL (74-106) H Calcium Level 9.5 MG/DL (8.5-10.1) Magnesium Level 2.1 MG/DL (1.8-2.4) Pro-B-Type Natriuretic Peptide 2496 pg/mL (0-125) H Plan Problems: (1) Anemia (2) Sepsis Assessment & Plan: 74-year-old female with medical comorbidities present with leukocytosis anemia abnormal labs hypoalbuminemia failure to thrive malnutrition worsening decubitus ulcer admitted further care and management was prior on vancomycin now on IV antibiotics admitted and under monitoring. Full evaluation does not at the bedside and evaluation performed. Trach stable PEG tube stable skin deteriorating per her turgor worsening decubitus ulcer malnutrition continue tube feeds as tolerated continue antibiotics wounds unlikely etiology of patient's sepsis we will monitor and follow with recommendations trend labs thank you for letting participate patient's care DAILY ESTIMATED NEEDS: Needs based on Wound, DM/ 57kg abw 25-30 kcals/kg 5912-8344 total kcals 1.25-1.8 g protein/kg 71-103 g total protein 20-25 mL/kg 2337-6537 total fluid mLs NUTRITION DIAGNOSIS: * Increased kcal/prot needs R/T wound healing as evidenced by pt admiteed w/ unstageable sacral wound, refer to full wound care eval. * Swallowing difficulty R/T dysphagia, respiratory status as evidenced by pt on T-collar, PEG dep. CURRENT TF:Glucerna 1.2 @ 50ml/hr x 24 hrs ENTERAL NUTRITION RECOMMENDATIONS: Glucerna 1.2 @ 50ml/hr x 24 hrs to provide 1200ml, 1440kcal, 72g, 966ml free water * Maintain current TF * HOB over 30 degrees/ water flush per MD ADDITIONAL RECOMMENDATIONS: * Calibrated bedscale wt -w/ added p200 mattress + pump * Wound healing: TF @ goal will provide 100% RDI Add Vit C 250mg QD + Endy BID via PEG * Monitor lytes closely w/ Lasix, replete as needed (3) Elevated troponin (4) Pneumonia (5) Encounter for generalized patient complaints (6) Decubitus skin ulcer Assessment & Plan: Patient presented on admission with an Unstageable Sacral Pressure injury(L)9.8cm x (W)6.7cm. Base of wound is 80% necrotic ,20% mixed slough ,beefy red. Small amt serous exudate. Mild odor noted. Borders are macerated with surrounding maroon and indurated borders. MASD noted to Mons-pubis outer aspects of R and L buttocks. Perineum and bilat ischial tuberosities. Affected areas mentioned are erythematous, macerated with scattered satellite lesions. Non-Blanchable erythema without induration or fluctuance R and L Heels. Skin assessed under tracheal collar and no evidence of skin breakdown noted. Assessed pt and necrotic base of Sacral wound crosshatched by Md. Pineda.Plan: Cleanse Sacral wound with Saline. Apply TheraHoney. Apply Moisture Barrier Paste periwound. Cover with Optifoam Drsg. Change Daily and prn. Apply Moisture Barrier Paste to Mons Pubis, Perineum and buttocks with each Incontinence care. Apply Cavilon Skin Barrier to Both heels and Malleoli. Cover each site with Optifoam Drsg. Change every 7 days and prn. Reposition at least every 2hours or as tolerated. Off-load heels with Pillow. Reposition at least every 2hours or as tolerated. APM/DANIEL mattress overlay. Adrian Gar Jun 02, 2020 09:40
[2020-06-02] MEDS: Ascorbic Acid 500mg tab GT SCH (09:56)
[2020-06-02] MEDS: Eliquis 5mg tablet GT SCH ×2 (09:57→19:50)
[2020-06-02] MEDS: Pantoprazole Inj IVP SCH (09:57)
--- NOTE | 2020-06-02 11:34 | Infectious Diseases Prog Note ---
Assessment/Plan Assessment/Plan A: 1. sepsis. 2. Acinetobacter pneumonia. 3. Leukocytosis is improving. 4. Diabetes. 5. Hypertension. 6. CVA. 7. Dementia. 8. COVID-19 test was negative. 9. Positive blood cultures likely contamination PLAN: 1. continue Colistin inhaler Subjective Constitutional: Reports: fever, other - [id number] Allergies: Coded Allergies: No Known Allergies (Unverified , 05/15/20) Objective Last 24 Hour Vital Signs Date Time Temp Pulse Resp B/P (MAP) Pulse Ox O2 Delivery O2 Flow Rate FiO2 06/02/20 08:19 73 20 100 Cool Aerosol 5.0 28 69 20 99 06/02/20 08:04 100 T-Piece 5.0 28 06/02/20 08:00 97.7 81 19 149/69 (95) 100 06/02/20 08:00 77 06/02/20 06:22 79 153/69 06/02/20 06:22 153/69 06/02/20 04:00 99.7 73 21 159/82 (107) 100 06/02/20 04:00 87 06/02/20 00:48 99 T-Piece 5.0 28 06/02/20 00:00 73 06/02/20 00:00 100.0 73 20 138/58 (84) 100 06/01/20 21:50 88 142/75 06/01/20 21:41 81 18 100 Cool Aerosol 5.0 28 76 18 98 06/01/20 21:00 Trach Collar 8.0 Trach Collar 06/01/20 20:00 99.8 79 19 139/68 (91) 100 06/01/20 20:00 72 06/01/20 19:54 98 T-Piece 5.0 06/01/20 17:38 137/65 06/01/20 16:00 89 06/01/20 16:00 100.0 89 20 137/65 (89) 100 06/01/20 14:37 84 157/58 06/01/20 14:37 157/58 06/01/20 12:12 92 20 100 Cool Aerosol 5.0 28 88 18 99 06/01/20 12:11 99 T-Piece 5.0 28 06/01/20 12:00 99.7 88 20 151/68 (95) 98 06/01/20 12:00 89 Height (Feet): 5 Height (Inches): 3.00 Weight (Pounds): 157 General Appearance: no acute distress HEENT: status post trach Respiratory/Chest: lungs clear, other - on T bar Cardiovascular: normal rate Abdomen: soft, non tender, other - GT feeding Extremities: other - right arm edema Neurologic/Psychiatric: aphasia Laboratory Tests Test 06/01/20 21:12 06/01/20 23:54 06/02/20 05:21 06/02/20 06:19 POC Whole Blood Glucose 276 MG/DL (74-106) H 283 MG/DL (74-106) H 288 MG/DL (74-106) H White Blood Count 14.1 K/UL (4.8-10.8) H Red Blood Count 3.71 M/UL (4.20-5.40) L Hemoglobin 9.2 G/DL (12.0-16.0) L Hematocrit 29.1 % (37.0-47.0) L Mean Corpuscular Volume 78 FL (80-99) L Mean Corpuscular Hemoglobin 24.9 PG (27.0-31.0) L Mean Corpuscular Hemoglobin Concent 31.7 G/DL (32.0-36.0) L Red Cell Distribution Width 16.9 % (11.6-14.8) H Platelet Count 413 K/UL (150-450) Mean Platelet Volume 8.2 FL (6.5-10.1) Neutrophils (%) (Auto) 74.6 % (45.0-75.0) Lymphocytes (%) (Auto) 14.5 % (20.0-45.0) L Monocytes (%) (Auto) 5.8 % (1.0-10.0) Eosinophils (%) (Auto) 4.4 % (0.0-3.0) H Basophils (%) (Auto) 0.7 % (0.0-2.0) Sodium Level 140 MMOL/L (136-145) Potassium Level 4.0 MMOL/L (3.5-5.1) Chloride Level 99 MMOL/L (98-107) Carbon Dioxide Level 34 MMOL/L (21-32) H Anion Gap 7 mmol/L (5-15) Blood Urea Nitrogen 25 mg/dL (7-18) H Creatinine 0.7 MG/DL (0.55-1.30) Estimat Glomerular Filtration Rate > 60 mL/min (>60) Glucose Level 266 MG/DL (74-106) H Calcium Level 9.5 MG/DL (8.5-10.1) Magnesium Level 2.1 MG/DL (1.8-2.4) Pro-B-Type Natriuretic Peptide 2496 pg/mL (0-125) H Current Medications Medications (Trade) Dose Ordered Sig/Cayden Route PRN Reason Start Time Stop Time Status Last Admin Dose Admin Acetaminophen (Tylenol) 650 mg Q4H PRN GT Pain 05/26/20 07:45 06/25/20 07:44 06/01/20 08:28 Apixaban (Eliquis) 5 mg BID GT 05/26/20 09:00 08/24/20 08:59 06/02/20 09:57 Ascorbic Acid (Vitamin C) 250 mg DAILY GT 05/28/20 09:00 06/27/20 08:59 06/02/20 09:56 Colistimethate Sodium (Colistin *inhalation use only*) 75 mg Q12HR@10,22 INH 06/01/20 11:00 06/08/20 10:59 06/02/20 08:09 Dextrose (Dextrose 50%) 25 ml Q30M PRN IV Hypoglycemia 05/26/20 07:30 08/24/20 07:29 Dextrose (Dextrose 50%) 50 ml Q30M PRN IV Hypoglycemia 05/26/20 07:30 08/24/20 07:29 Furosemide (Lasix) 40 mg DAILY IV 05/29/20 09:00 06/28/20 08:59 06/02/20 09:57 Insulin Aspart (NovoLOG) Q6HR SUBQ 05/26/20 12:00 08/24/20 11:59 06/02/20 06:21 Insulin Detemir (Levemir) 25 units BEDTIME SUBQ 06/02/20 21:00 08/31/20 20:59 Metoprolol Tartrate (Lopressor) 50 mg EVERY 8 HOURS GT 05/28/20 22:00 08/26/20 21:59 06/02/20 06:22 Nitroglycerin (Nitro-Bid) 1 inch TID@0600,1200,1800 TOPIC 05/27/20 18:00 06/26/20 17:59 06/02/20 06:22 Pantoprazole (Protonix) 40 mg DAILY IVP 05/26/20 09:00 06/25/20 08:59 06/02/20 09:57 Colby Rock MD Jun 02, 2020 11:34
--- NOTE | 2020-06-02 11:35 | Cardiology Progress Note ---
Subjective DATE OF SERVICE: Jun 02, 2020 On T-collar Sputum culture A.baumanni Decreasing secretions Monitor: Sinus with PAFIb and short runs of aberrancy. Objective Last 24 Hour Vital Signs Date Time Temp Pulse Resp B/P (MAP) Pulse Ox O2 Delivery O2 Flow Rate FiO2 06/02/20 08:19 73 20 100 Cool Aerosol 5.0 28 69 20 99 06/02/20 08:04 100 T-Piece 5.0 28 06/02/20 08:00 97.7 81 19 149/69 (95) 100 06/02/20 08:00 77 06/02/20 06:22 79 153/69 06/02/20 06:22 153/69 06/02/20 04:00 99.7 73 21 159/82 (107) 100 06/02/20 04:00 87 06/02/20 00:48 99 T-Piece 5.0 28 06/02/20 00:00 73 06/02/20 00:00 100.0 73 20 138/58 (84) 100 06/01/20 21:50 88 142/75 06/01/20 21:41 81 18 100 Cool Aerosol 5.0 28 76 18 98 06/01/20 21:00 Trach Collar 8.0 Trach Collar 06/01/20 20:00 99.8 79 19 139/68 (91) 100 06/01/20 20:00 72 06/01/20 19:54 98 T-Piece 5.0 06/01/20 17:38 137/65 06/01/20 16:00 89 06/01/20 16:00 100.0 89 20 137/65 (89) 100 06/01/20 14:37 84 157/58 06/01/20 14:37 157/58 06/01/20 12:12 92 20 100 Cool Aerosol 5.0 28 88 18 99 06/01/20 12:11 99 T-Piece 5.0 28 06/01/20 12:00 99.7 88 20 151/68 (95) 98 06/01/20 12:00 89 ROS: no change from my assessment of 05/25/20 - remains unobtainable from patient HEENT: normal ENT inspection, Thick Trach secretions RHYTHM: NSR, PACs LUNGS: diminished breath sounds - left, bilateral rhonchi CARDIAC: normal rate, regular rhythm, normal S1 and S2 ABDOMEN: normal bowel sounds, non tender, soft, G-Tube intact EXTREMITIES: trace edema, other - sacral decub. noncommunicative Laboratory Tests Test 06/01/20 21:12 06/01/20 23:54 06/02/20 05:21 06/02/20 06:19 POC Whole Blood Glucose 276 MG/DL (74-106) H 283 MG/DL (74-106) H 288 MG/DL (74-106) H White Blood Count 14.1 K/UL (4.8-10.8) H Red Blood Count 3.71 M/UL (4.20-5.40) L Hemoglobin 9.2 G/DL (12.0-16.0) L Hematocrit 29.1 % (37.0-47.0) L Mean Corpuscular Volume 78 FL (80-99) L Mean Corpuscular Hemoglobin 24.9 PG (27.0-31.0) L Mean Corpuscular Hemoglobin Concent 31.7 G/DL (32.0-36.0) L Red Cell Distribution Width 16.9 % (11.6-14.8) H Platelet Count 413 K/UL (150-450) Mean Platelet Volume 8.2 FL (6.5-10.1) Neutrophils (%) (Auto) 74.6 % (45.0-75.0) Lymphocytes (%) (Auto) 14.5 % (20.0-45.0) L Monocytes (%) (Auto) 5.8 % (1.0-10.0) Eosinophils (%) (Auto) 4.4 % (0.0-3.0) H Basophils (%) (Auto) 0.7 % (0.0-2.0) Sodium Level 140 MMOL/L (136-145) Potassium Level 4.0 MMOL/L (3.5-5.1) Chloride Level 99 MMOL/L (98-107) Carbon Dioxide Level 34 MMOL/L (21-32) H Anion Gap 7 mmol/L (5-15) Blood Urea Nitrogen 25 mg/dL (7-18) H Creatinine 0.7 MG/DL (0.55-1.30) Estimat Glomerular Filtration Rate > 60 mL/min (>60) Glucose Level 266 MG/DL (74-106) H Calcium Level 9.5 MG/DL (8.5-10.1) Magnesium Level 2.1 MG/DL (1.8-2.4) Pro-B-Type Natriuretic Peptide 2496 pg/mL (0-125) H Assessment/Plan Assessment/Plan Healthcare associated PNA Left pleural effusion Acute myocardial ischemia with possible NSTE myocardial infarction Sepsis Respiratory failure Hypertension/HHD Parox AFib Conduction system disease with bifasc block Ac/chr diastolic CHF now compensated Low lipid parameters NSVT IRDM Hypomagnesemia Resp Rx Antimicrobials; follow-up 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 Full anticoagulation Titrate CV regimen based on clinical parameters - continue current antianginal regimen, including beta pietro. No need for statin Titrate insulin rx John Heard MD Jun 02, 2020 11:35
[2020-06-02 12:00] VITALS: BP 125/77
[2020-06-02 16:00] VITALS: BP 136/80
[2020-06-02 20:00] VITALS: BP 151/50
[2020-06-02] MEDS: Acetaminophen 650mg/20.3ml GT PRN (21:55)
[2020-06-02] MEDS: Levemir Flexpen SUBQ SCH (21:58)
[2020-06-03] VITALS: BP 152/75
[2020-06-03 04:00] VITALS: BP 178/87
[2020-06-03] MEDS: Metoprolol Tartrate 50mg tab GT SCH ×3 (06:16→22:31)
[2020-06-03] MEDS: NovoLOG Insulin Flexpen SUBQ SCH ×3 (06:16→17:28)
[2020-06-03] MEDS: Acetaminophen 650mg/20.3ml GT PRN (06:18)
[2020-06-03 08:00] VITALS: BP 197/87
[2020-06-03] MEDS: Ascorbic Acid 500mg tab GT SCH (09:04)
[2020-06-03] MEDS: Pantoprazole Inj IVP SCH (09:04)
[2020-06-03] MEDS: Eliquis 5mg tablet GT SCH ×2 (09:05→17:35)
[2020-06-03] MEDS: Colistin for inhalation INH SCH ×2 (09:17→22:43)
--- NOTE | 2020-06-03 09:29 | Pulmonology Progress Note ---
Subjective ROS Limited/Unobtainable: Yes Constitutional: Reports: fever, other - [id number] Allergies: Coded Allergies: No Known Allergies (Unverified , 05/15/20) Subjective care noted MDRO wbc noted elevated bp Objective Last 24 Hour Vital Signs Date Time Temp Pulse Resp B/P (MAP) Pulse Ox O2 Delivery O2 Flow Rate FiO2 06/03/20 09:04 197/87 06/03/20 09:04 197/87 06/03/20 08:00 97.9 89 22 197/87 (123) 100 06/03/20 07:15 97 T-Piece 5.0 28 06/03/20 06:48 98.7 06/03/20 06:16 87 178/87 06/03/20 04:00 100.6 82 19 178/87 (117) 100 06/03/20 04:00 87 06/03/20 01:31 99 T-Piece 5.0 28 06/03/20 00:00 97.5 81 21 152/75 (100) 98 06/03/20 00:00 82 06/02/20 21:59 88 140/60 06/02/20 21:35 77 20 100 Cool Aerosol 5.0 28 78 20 98 06/02/20 21:00 Trach Collar 8.0 06/02/20 20:04 100 T-Piece 5.0 28 06/02/20 20:00 100.8 86 19 151/50 (83) 100 06/02/20 19:50 136/80 06/02/20 19:49 75 125/77 06/02/20 16:00 84 06/02/20 16:00 98.8 84 18 136/80 (98) 96 06/02/20 12:40 125/77 06/02/20 12:00 81 06/02/20 12:00 98.8 75 20 125/77 (93) 97 Intake and Output 06/02/20 06/03/20 19:00 07:00 Output Total 1600 ml Balance -1600 ml Output Urine Total 1600 ml # Bowel Movements 1 Objective WDWN NAD trach reduced breath sounds bilaterally with some rhonchi [id number] without MRG NABS nontender GT no CCE withdrawn Laboratory Tests 06/02/20 12:01: POC Whole Blood Glucose [Pending] Current Medications Medications (Trade) Dose Ordered Sig/Cayden Route PRN Reason Start Time Stop Time Status Last Admin Dose Admin Acetaminophen (Tylenol) 650 mg Q4H PRN GT Pain 05/26/20 07:45 06/25/20 07:44 06/03/20 06:18 Apixaban (Eliquis) 5 mg BID GT 05/26/20 09:00 08/24/20 08:59 06/03/20 09:05 Ascorbic Acid (Vitamin C) 250 mg DAILY GT 05/28/20 09:00 06/27/20 08:59 06/03/20 09:04 Clonidine HCl (Catapres Tab) 0.1 mg Q4H PRN ORAL for sbp>150 06/03/20 09:00 09/01/20 08:59 06/03/20 09:04 Colistimethate Sodium (Colistin *inhalation use only*) 75 mg Q12HR@10,22 INH 06/01/20 11:00 06/08/20 10:59 06/03/20 09:17 Dextrose (Dextrose 50%) 25 ml Q30M PRN IV Hypoglycemia 05/26/20 07:30 08/24/20 07:29 Dextrose (Dextrose 50%) 50 ml Q30M PRN IV Hypoglycemia 05/26/20 07:30 08/24/20 07:29 Furosemide (Lasix) 20 mg DAILY GT 06/03/20 09:00 07/03/20 08:59 06/03/20 09:04 Insulin Aspart (NovoLOG) Q6HR SUBQ 05/26/20 12:00 08/24/20 11:59 06/03/20 06:16 Insulin Detemir (Levemir) 25 units BEDTIME SUBQ 06/02/20 21:00 08/31/20 20:59 06/02/20 21:58 Isosorbide Dinitrate (Isordil) 20 mg THREE TIMES A DAY GT 06/02/20 13:00 07/02/20 12:59 06/03/20 09:04 Metoprolol Tartrate (Lopressor) 50 mg EVERY 8 HOURS GT 05/28/20 22:00 08/26/20 21:59 06/03/20 06:16 Pantoprazole (Protonix) 40 mg DAILY IVP 05/26/20 09:00 06/25/20 08:59 06/03/20 09:04 Assessment/Plan Assessment/Plan IMPRESSION leukocytosis sepsis Afib, chronic encephalopathy trach respiratory failure elevated troponin anemia bacteremia- staph fevers better hypertension PLAN inhaled colisitin prn clonidine isolation ID follow up and recommendations and clearance dc to snf soon pending ID clearance respiratory care snf meds suction monitor cultures eliquis and monitor HH card follow up impression, plan, and exam edited and reviewed in detail care discussed with Fernie Ledezma MD Jun 03, 2020 09:29
--- NOTE | 2020-06-03 10:08 | Infectious Diseases Prog Note ---
Assessment/Plan Assessment/Plan antibiotics : inhaled colistin 9.2.20 - A 1. aspiration pneumonia with acenitobacter 2. + blood cultures with coag neg staph likely contaminated 3. leucocytosis 4. diabetes mellitus 5. hypertension 6. CVA 7. dementia P 1. continue inhaled colistin 4 more days 2. will follow up cultures Subjective ROS Limited/Unobtainable: Yes Allergies: Coded Allergies: No Known Allergies (Unverified , 05/15/20) Objective Last 24 Hour Vital Signs Date Time Temp Pulse Resp B/P (MAP) Pulse Ox O2 Delivery O2 Flow Rate FiO2 06/03/20 09:27 94 20 100 Cool Aerosol 5.0 28 94 20 98 06/03/20 09:04 197/87 06/03/20 09:04 19787 06/03/20 08:00 97.9 89 22 197/87 (123) 100 06/03/20 07:15 97 T-Piece 5.0 28 06/03/20 06:48 98.7 06/03/20 06:16 87 178/87 06/03/20 04:00 100.6 82 19 178/87 (117) 100 06/03/20 04:00 87 06/03/20 01:31 99 T-Piece 5.0 28 06/03/20 00:00 97.5 81 21 152/75 (100) 98 06/03/20 00:00 82 06/02/20 21:59 88 140/60 06/02/20 21:35 77 20 100 Cool Aerosol 5.0 28 78 20 98 06/02/20 21:00 Trach Collar 8.0 06/02/20 20:04 100 T-Piece 5.0 28 06/02/20 20:00 100.8 86 19 151/50 (83) 100 06/02/20 19:50 136/80 06/02/20 19:49 75 125/77 06/02/20 16:00 84 06/02/20 16:00 98.8 84 18 136/80 (98) 96 06/02/20 12:40 125/77 06/02/20 12:00 81 06/02/20 12:00 98.8 75 20 125/77 (93) 97 Height (Feet): 5 Height (Inches): 3.00 Weight (Pounds): 157 HEENT: status post trach Respiratory/Chest: lungs clear Cardiovascular: normal rate, regular rhythm, no gallop/murmur Abdomen: soft, non tender, other - GT Extremities: no edema Laboratory Tests Test 06/02/20 12:01 POC Whole Blood Glucose Pending Current Medications Medications (Trade) Dose Ordered Sig/Cayden Route PRN Reason Start Time Stop Time Status Last Admin Dose Admin Acetaminophen (Tylenol) 650 mg Q4H PRN GT Pain 05/26/20 07:45 06/25/20 07:44 06/03/20 06:18 Apixaban (Eliquis) 5 mg BID GT 05/26/20 09:00 08/24/20 08:59 06/03/20 09:05 Ascorbic Acid (Vitamin C) 250 mg DAILY GT 05/28/20 09:00 06/27/20 08:59 06/03/20 09:04 Clonidine HCl (Catapres Tab) 0.1 mg Q4H PRN ORAL for sbp>150 06/03/20 09:00 09/01/20 08:59 06/03/20 09:04 Colistimethate Sodium (Colistin *inhalation use only*) 75 mg Q12HR@10,22 INH 06/01/20 11:00 06/08/20 10:59 06/03/20 09:17 Dextrose (Dextrose 50%) 25 ml Q30M PRN IV Hypoglycemia 05/26/20 07:30 08/24/20 07:29 Dextrose (Dextrose 50%) 50 ml Q30M PRN IV Hypoglycemia 05/26/20 07:30 08/24/20 07:29 Furosemide (Lasix) 20 mg DAILY GT 06/03/20 09:00 07/03/20 08:59 06/03/20 09:04 Insulin Aspart (NovoLOG) Q6HR SUBQ 05/26/20 12:00 08/24/20 11:59 06/03/20 06:16 Insulin Detemir (Levemir) 25 units BEDTIME SUBQ 06/02/20 21:00 08/31/20 20:59 06/02/20 21:58 Isosorbide Dinitrate (Isordil) 20 mg THREE TIMES A DAY GT 06/02/20 13:00 07/02/20 12:59 06/03/20 09:04 Metoprolol Tartrate (Lopressor) 50 mg EVERY 8 HOURS GT 05/28/20 22:00 08/26/20 21:59 06/03/20 06:16 Pantoprazole (Protonix) 40 mg DAILY IVP 05/26/20 09:00 06/25/20 08:59 06/03/20 09:04 Mina Salamanca MD Jun 03, 2020 10:08
[2020-06-03 12:00] VITALS: BP 179/85
--- NOTE | 2020-06-03 12:38 | Surgery Progress Note ---
Surgery Progress Note Subjective Symptoms: improved, tolerating diet, passing flatus, BM Objective Last 24 Hour Vital Signs Date Time Temp Pulse Resp B/P (MAP) Pulse Ox O2 Delivery O2 Flow Rate FiO2 06/03/20 09:27 94 20 100 Cool Aerosol 5.0 28 94 20 98 06/03/20 09:04 197/87 06/03/20 09:04 197/87 06/03/20 09:00 Trach Collar 8.0 06/03/20 08:00 90 06/03/20 08:00 97.9 89 22 197/87 (123) 100 06/03/20 07:15 97 T-Piece 5.0 28 06/03/20 06:48 98.7 06/03/20 06:16 87 178/87 06/03/20 04:00 100.6 82 19 178/87 (117) 100 06/03/20 04:00 87 06/03/20 01:31 99 T-Piece 5.0 28 06/03/20 00:00 97.5 81 21 152/75 (100) 98 06/03/20 00:00 82 06/02/20 21:59 88 140/60 06/02/20 21:35 77 20 100 Cool Aerosol 5.0 28 78 20 98 06/02/20 21:00 Trach Collar 8.0 06/02/20 20:04 100 T-Piece 5.0 28 06/02/20 20:00 100.8 86 19 151/50 (83) 100 06/02/20 19:50 136/80 06/02/20 19:49 75 125/77 06/02/20 16:00 84 06/02/20 16:00 98.8 84 18 136/80 (98) 96 06/02/20 12:40 125/77 I&O Intake and Output 06/02/20 06/03/20 19:00 07:00 Output Total 1600 ml Balance -1600 ml Output Urine Total 1600 ml # Bowel Movements 1 Dressing: saturated Wound: clean Cardiovascular: RSR Respiratory: clear, decreased breath sounds Abdomen: soft, non-tender, present bowel sounds Extremities: no cyanosis Plan Problems: (1) Anemia (2) Sepsis Assessment & Plan: 74-year-old female with medical comorbidities present with leukocytosis anemia abnormal labs hypoalbuminemia failure to thrive malnutrition worsening decubitus ulcer admitted further care and management was prior on vancomycin now on IV antibiotics admitted and under monitoring. Full evaluation does not at the bedside and evaluation performed. Trach stable PEG tube stable skin deteriorating per her turgor worsening decubitus ulcer malnutrition continue tube feeds as tolerated continue antibiotics wounds unlikely etiology of patient's sepsis we will monitor and follow with recommendations trend labs thank you for letting participate patient's care DAILY ESTIMATED NEEDS: Needs based on Wound, DM/ 57kg abw 25-30 kcals/kg 6755-7805 total kcals 1.25-1.8 g protein/kg 71-103 g total protein 20-25 mL/kg 5079-9685 total fluid mLs NUTRITION DIAGNOSIS: * Increased kcal/prot needs R/T wound healing as evidenced by pt admiteed w/ unstageable sacral wound, refer to full wound care eval. * Swallowing difficulty R/T dysphagia, respiratory status as evidenced by pt on T-collar, PEG dep. CURRENT TF:Glucerna 1.2 @ 50ml/hr x 24 hrs ENTERAL NUTRITION RECOMMENDATIONS: Glucerna 1.2 @ 50ml/hr x 24 hrs to provide 1200ml, 1440kcal, 72g, 966ml free water * Maintain current TF * HOB over 30 degrees/ water flush per MD ADDITIONAL RECOMMENDATIONS: * Calibrated bedscale wt -w/ added p200 mattress + pump * Wound healing: TF @ goal will provide 100% RDI Add Vit C 250mg QD + Endy BID via PEG * Monitor lytes closely w/ Lasix, replete as needed (3) Elevated troponin (4) Pneumonia (5) Encounter for generalized patient complaints (6) Decubitus skin ulcer Assessment & Plan: Patient presented on admission with an Unstageable Sacral Pressure injury(L)9.8cm x (W)6.7cm. Base of wound is 80% necrotic ,20% mixed slough ,beefy red. Small amt serous exudate. Mild odor noted. Borders are macerated with surrounding maroon and indurated borders. MASD noted to Mons-pubis outer aspects of R and L buttocks. Perineum and bilat ischial tuberosities. Affected areas mentioned are erythematous, macerated with scattered satellite lesions. Non-Blanchable erythema without induration or fluctuance R and L Heels. Skin assessed under tracheal collar and no evidence of skin breakdown noted. Assessed pt and necrotic base of Sacral wound crosshatched by Md. Pineda.Plan: Cleanse Sacral wound with Saline. Apply TheraHoney. Apply Moisture Barrier Paste periwound. Cover with Optifoam Drsg. Change Daily and prn. Apply Moisture Barrier Paste to Mons Pubis, Perineum and buttocks with each Incontinence care. Apply Cavilon Skin Barrier to Both heels and Malleoli. Cover each site with Optifoam Drsg. Change every 7 days and prn. Reposition at least every 2hours or as tolerated. Off-load heels with Pillow. Reposition at least every 2hours or as tolerated. APM/DANIEL mattress overlay. Adrian Gar Jun 03, 2020 12:38
[2020-06-03 16:00] VITALS: BP 180/87
[2020-06-03 20:00] VITALS: BP 131/69
[2020-06-03] MEDS: Levemir Flexpen SUBQ SCH (20:07)
[2020-06-04] VITALS: BP 130/57
[2020-06-04] MEDS: NovoLOG Insulin Flexpen SUBQ SCH ×4 (00:14→18:03)
[2020-06-04 04:00] VITALS: BP 133/52
[2020-06-04] MEDS: Metoprolol Tartrate 50mg tab GT SCH ×3 (05:31→22:03)
[2020-06-04 08:00] VITALS: BP 124/56
--- NOTE | 2020-06-04 09:47 | Pulmonology Progress Note ---
Subjective ROS Limited/Unobtainable: Yes Constitutional: Reports: fever, other - Gx=539 Allergies: Coded Allergies: No Known Allergies (Unverified , 05/15/20) Objective Last 24 Hour Vital Signs Date Time Temp Pulse Resp B/P (MAP) Pulse Ox O2 Delivery O2 Flow Rate FiO2 06/04/20 08:00 98.7 77 19 124/56 (78) 97 06/04/20 06:49 99 T-Piece 5.0 28 06/04/20 05:31 80 133/52 06/04/20 04:00 98.1 81 22 133/52 (79) 100 06/04/20 03:54 76 06/04/20 01:14 99 T-Piece 5.0 28 06/04/20 00:06 61 06/04/20 00:00 98.5 66 20 130/57 (81) 100 06/03/20 22:43 68 20 100 Cool Aerosol 5.0 28 65 20 99 06/03/20 22:31 64 147/61 06/03/20 21:00 Trach Collar 8.0 06/03/20 20:00 65 06/03/20 20:00 99.0 70 20 131/69 (89) 98 06/03/20 19:34 100 T-Piece 5.0 28 06/03/20 17:37 180/87 06/03/20 17:36 180/87 06/03/20 16:00 74 06/03/20 16:00 98.7 97 21 180/87 (118) 97 06/03/20 15:01 89 179/85 06/03/20 13:29 98 T-Piece 5.0 28 06/03/20 12:56 179/85 06/03/20 12:56 179/85 06/03/20 12:00 96.6 89 20 179/85 (116) 100 06/03/20 12:00 88 Intake and Output 06/03/20 06/04/20 19:00 07:00 Intake Total 100 ml 435 ml Output Total 1500 ml 1000 ml Balance -1400 ml -565 ml Intake Free Water 50 ml 50 ml Tube Feeding 50 ml 385 ml Output Urine Total 1500 ml 1000 ml # Bowel Movements 3 Current Medications Medications (Trade) Dose Ordered Sig/Cayden Route PRN Reason Start Time Stop Time Status Last Admin Dose Admin Acetaminophen (Tylenol) 650 mg Q4H PRN GT Pain 05/26/20 07:45 06/25/20 07:44 06/03/20 06:18 Apixaban (Eliquis) 5 mg BID GT 05/26/20 09:00 08/24/20 08:59 06/03/20 17:35 Ascorbic Acid (Vitamin C) 250 mg DAILY GT 05/28/20 09:00 06/27/20 08:59 06/03/20 09:04 Clonidine HCl (Catapres Tab) 0.1 mg Q4H PRN ORAL for sbp>150 06/03/20 09:00 09/01/20 08:59 06/03/20 17:37 Colistimethate Sodium (Colistin *inhalation use only*) 75 mg Q12HR@10,22 INH 06/01/20 11:00 06/08/20 10:59 06/03/20 22:43 Dextrose (Dextrose 50%) 25 ml Q30M PRN IV Hypoglycemia 05/26/20 07:30 08/24/20 07:29 Dextrose (Dextrose 50%) 50 ml Q30M PRN IV Hypoglycemia 05/26/20 07:30 08/24/20 07:29 Furosemide (Lasix) 20 mg DAILY GT 06/03/20 09:00 07/03/20 08:59 06/03/20 09:04 Insulin Aspart (NovoLOG) Q6HR SUBQ 05/26/20 12:00 08/24/20 11:59 06/04/20 05:04 Insulin Detemir (Levemir) 25 units BEDTIME SUBQ 06/02/20 21:00 08/31/20 20:59 06/03/20 20:07 Isosorbide Dinitrate (Isordil) 20 mg THREE TIMES A DAY GT 06/02/20 13:00 07/02/20 12:59 06/03/20 17:36 Metoprolol Tartrate (Lopressor) 50 mg EVERY 8 HOURS GT 05/28/20 22:00 08/26/20 21:59 06/04/20 05:31 Pantoprazole (Protonix) 40 mg DAILY IVP 05/26/20 09:00 06/25/20 08:59 06/03/20 09:04 Assessment/Plan Assessment/Plan Pulmonary Progress Note Subjective ROS Limited/Unobtainable: Yes Constitutional: Reports: fever, other - Nh=530 Allergies: Coded Allergies: No Known Allergies (Unverified , 05/15/20) Subjective care noted MDRO wbc noted stable overnight Objective Vital Signs noted Objective WDWN NAD trach - t piece reduced breath sounds bilaterally with some rhonchi [id number] without MRG NABS nontender GT no CCE withdrawn Laboratory Tests noted Assessment/Plan Assessment/Plan leukocytosis sepsis Afib, chronic encephalopathy trach respiratory failure elevated troponin anemia bacteremia- staph fevers better hypertension PLAN inhaled colisitin prn clonidine isolation ID follow up and recommendations and clearance dc to snf soon pending ID clearance respiratory care snf meds suction monitor cultures eliquis and monitor HH card follow up impression, plan, and exam edited and reviewed in detail care discussed with John Wilson MD Jun 04, 2020 09:47
[2020-06-04] MEDS: Ascorbic Acid 500mg tab GT SCH (10:15)
[2020-06-04] MEDS: Pantoprazole Inj IVP SCH (10:17)
[2020-06-04] MEDS: Eliquis 5mg tablet GT SCH ×2 (10:17→17:55)
[2020-06-04] MEDS: Colistin for inhalation INH SCH ×2 (10:22→22:14)
--- NOTE | 2020-06-04 10:33 | Infectious Diseases Prog Note ---
Assessment/Plan Assessment/Plan antibiotics : inhaled colistin 9.2.20 - A 1. aspiration pneumonia with acenitobacter 2. + blood cultures with coag neg staph likely contaminated 3. leucocytosis improving 4. diabetes mellitus 5. hypertension 6. CVA 7. dementia P 1. continue inhaled colistin 3 more days 2. will follow up cultures Subjective ROS Limited/Unobtainable: Yes Allergies: Coded Allergies: No Known Allergies (Unverified , 05/15/20) Objective Last 24 Hour Vital Signs Date Time Temp Pulse Resp B/P (MAP) Pulse Ox O2 Delivery O2 Flow Rate FiO2 06/04/20 10:22 43 20 100 Cool Aerosol 5.0 28 74 20 98 06/04/20 10:16 124/56 06/04/20 08:00 98.7 77 19 124/56 (78) 97 06/04/20 06:49 99 T-Piece 5.0 06/04/20 05:31 80 133/52 06/04/20 04:00 98.1 81 22 133/52 (79) 100 06/04/20 03:54 76 06/04/20 01:14 99 T-Piece 5.0 06/04/20 00:06 61 06/04/20 00:00 98.5 66 20 130/57 (81) 100 06/03/20 22:43 68 20 100 Cool Aerosol 5.0 65 20 99 06/03/20 22:31 64 147/61 06/03/20 21:00 Trach Collar 8.0 06/03/20 20:00 65 06/03/20 20:00 99.0 70 20 131/69 (89) 98 06/03/20 19:34 100 T-Piece 5.0 06/03/20 17:37 180/87 06/03/20 17:36 180/87 06/03/20 16:00 74 06/03/20 16:00 98.7 97 21 180/87 (118) 97 06/03/20 15:01 89 179/85 06/03/20 13:29 98 T-Piece 5.0 06/03/20 12:56 179/85 06/03/20 12:56 179/85 06/03/20 12:00 96.6 89 20 179/85 (116) 100 06/03/20 12:00 88 Height (Feet): 5 Height (Inches): 3.00 Weight (Pounds): 157 HEENT: status post trach Respiratory/Chest: lungs clear Cardiovascular: normal rate, regular rhythm, no gallop/murmur Abdomen: soft, non tender, other - GT Extremities: no edema Current Medications Medications (Trade) Dose Ordered Sig/Cayden Route PRN Reason Start Time Stop Time Status Last Admin Dose Admin Acetaminophen (Tylenol) 650 mg Q4H PRN GT Pain 05/26/20 07:45 06/25/20 07:44 06/03/20 06:18 Apixaban (Eliquis) 5 mg BID GT 05/26/20 09:00 08/24/20 08:59 06/04/20 10:17 Ascorbic Acid (Vitamin C) 250 mg DAILY GT 05/28/20 09:00 06/27/20 08:59 06/04/20 10:15 Clonidine HCl (Catapres Tab) 0.1 mg Q4H PRN ORAL for sbp>150 06/03/20 09:00 09/01/20 08:59 06/03/20 17:37 Colistimethate Sodium (Colistin *inhalation use only*) 75 mg Q12HR@10,22 INH 06/01/20 11:00 06/08/20 10:59 06/04/20 10:22 Dextrose (Dextrose 50%) 25 ml Q30M PRN IV Hypoglycemia 05/26/20 07:30 08/24/20 07:29 Dextrose (Dextrose 50%) 50 ml Q30M PRN IV Hypoglycemia 05/26/20 07:30 08/24/20 07:29 Furosemide (Lasix) 20 mg DAILY GT 06/03/20 09:00 07/03/20 08:59 06/04/20 10:16 Insulin Aspart (NovoLOG) Q6HR SUBQ 05/26/20 12:00 08/24/20 11:59 06/04/20 05:04 Insulin Detemir (Levemir) 25 units BEDTIME SUBQ 06/02/20 21:00 08/31/20 20:59 06/03/20 20:07 Isosorbide Dinitrate (Isordil) 20 mg THREE TIMES A DAY GT 06/02/20 13:00 07/02/20 12:59 06/04/20 10:16 Metoprolol Tartrate (Lopressor) 50 mg EVERY 8 HOURS GT 05/28/20 22:00 08/26/20 21:59 06/04/20 05:31 Pantoprazole (Protonix) 40 mg DAILY IVP 05/26/20 09:00 06/25/20 08:59 06/04/20 10:17 Mina Salamanca MD Jun 04, 2020 10:33
--- NOTE | 2020-06-04 10:37 | Surgery Progress Note ---
Surgery Progress Note Subjective Symptoms: improved, tolerating diet, passing flatus, BM, other Objective Last 24 Hour Vital Signs Date Time Temp Pulse Resp B/P (MAP) Pulse Ox O2 Delivery O2 Flow Rate FiO2 06/04/20 10:22 43 20 100 Cool Aerosol 5.0 28 74 20 98 06/04/20 10:16 124/56 06/04/20 08:00 98.7 77 19 124/56 (78) 97 06/04/20 06:49 99 T-Piece 5.0 28 06/04/20 05:31 80 133/52 06/04/20 04:00 98.1 81 22 133/52 (79) 100 06/04/20 03:54 76 06/04/20 01:14 99 T-Piece 5.0 06/04/20 00:06 61 06/04/20 00:00 98.5 66 20 130/57 (81) 100 06/03/20 22:43 68 20 100 Cool Aerosol 5.0 28 65 20 99 06/03/20 22:31 64 147/61 06/03/20 21:00 Trach Collar 8.0 06/03/20 20:00 65 06/03/20 20:00 99.0 70 20 131/69 (89) 98 06/03/20 19:34 100 T-Piece 5.0 06/03/20 17:37 180/87 06/03/20 17:36 180/87 06/03/20 16:00 74 06/03/20 16:00 98.7 97 21 180/87 (118) 97 06/03/20 15:01 89 179/85 06/03/20 13:29 98 T-Piece 5.0 06/03/20 12:56 179/85 06/03/20 12:56 179/85 06/03/20 12:00 96.6 89 20 179/85 (116) 100 06/03/20 12:00 88 I&O Intake and Output 06/03/20 06/04/20 19:00 07:00 Intake Total 100 ml 435 ml Output Total 1500 ml 1000 ml Balance -1400 ml -565 ml Intake Free Water 50 ml 50 ml Tube Feeding 50 ml 385 ml Output Urine Total 1500 ml 1000 ml # Bowel Movements 3 Dressing: saturated Cardiovascular: RSR Respiratory: decreased breath sounds Abdomen: soft, non-tender, present bowel sounds Extremities: no tenderness, no cyanosis Plan Problems: (1) Anemia (2) Sepsis Assessment & Plan: 74-year-old female with medical comorbidities present with leukocytosis anemia abnormal labs hypoalbuminemia failure to thrive malnutrition worsening decubitus ulcer admitted further care and management was prior on vancomycin now on IV antibiotics admitted and under monitoring. Full evaluation does not at the bedside and evaluation performed. Trach stable PEG tube stable skin deteriorating per her turgor worsening decubitus ulcer malnutrition continue tube feeds as tolerated continue antibiotics wounds unlikely etiology of patient's sepsis we will monitor and follow with recommendations trend labs thank you for letting participate patient's care DAILY ESTIMATED NEEDS: Needs based on Wound, DM/ 57kg abw 25-30 kcals/kg 2451-4427 total kcals 1.25-1.8 g protein/kg 71-103 g total protein 20-25 mL/kg 5591-7030 total fluid mLs NUTRITION DIAGNOSIS: * Increased kcal/prot needs R/T wound healing as evidenced by pt admiteed w/ unstageable sacral wound, refer to full wound care eval. * Swallowing difficulty R/T dysphagia, respiratory status as evidenced by pt on T-collar, PEG dep. CURRENT TF:Glucerna 1.2 @ 50ml/hr x 24 hrs ENTERAL NUTRITION RECOMMENDATIONS: Glucerna 1.2 @ 50ml/hr x 24 hrs to provide 1200ml, 1440kcal, 72g, 966ml free water * Maintain current TF * HOB over 30 degrees/ water flush per MD ADDITIONAL RECOMMENDATIONS: * Calibrated bedscale wt -w/ added p200 mattress + pump * Wound healing: TF @ goal will provide 100% RDI Add Vit C 250mg QD + Endy BID via PEG * Monitor lytes closely w/ Lasix, replete as needed (3) Elevated troponin (4) Pneumonia (5) Encounter for generalized patient complaints (6) Decubitus skin ulcer Assessment & Plan: Patient presented on admission with an Unstageable Sacral Pressure injury(L)9.8cm x (W)6.7cm. Base of wound is 80% necrotic ,20% mixed slough ,beefy red. Small amt serous exudate. Mild odor noted. Borders are macerated with surrounding maroon and indurated borders. MASD noted to Mons-pubis outer aspects of R and L buttocks. Perineum and bilat ischial tuberosities. Affected areas mentioned are erythematous, macerated with scattered satellite lesions. Non-Blanchable erythema without induration or fluctuance R and L Heels. Skin assessed under tracheal collar and no evidence of skin breakdown noted. Assessed pt and necrotic base of Sacral wound crosshatched by Md. Pineda.Plan: Cleanse Sacral wound with Saline. Apply TheraHoney. Apply Moisture Barrier Paste periwound. Cover with Optifoam Drsg. Change Daily and prn. Apply Moisture Barrier Paste to Mons Pubis, Perineum and buttocks with each Incontinence care. Apply Cavilon Skin Barrier to Both heels and Malleoli. Cover each site with Optifoam Drsg. Change every 7 days and prn. Reposition at least every 2hours or as tolerated. Off-load heels with Pillow. Reposition at least every 2hours or as tolerated. APM/DANIEL mattress overlay. Adrian Gar Jun 04, 2020 10:37
[2020-06-04 12:00] VITALS: BP 132/57
[2020-06-04 16:00] VITALS: BP 130/61
[2020-06-04 20:00] VITALS: BP 116/60
[2020-06-04] MEDS: Levemir Flexpen SUBQ SCH (21:00)
[2020-06-05] VITALS: BP 153/72
[2020-06-05] MEDS: NovoLOG Insulin Flexpen SUBQ SCH ×4 (00:30→17:43)
[2020-06-05 04:00] VITALS: BP 155/72
[2020-06-05] MEDS: Metoprolol Tartrate 50mg tab GT SCH ×3 (06:00→21:04)
[2020-06-05 08:00] VITALS: BP 109/63
[2020-06-05] MEDS: Colistin for inhalation INH SCH ×2 (08:23→21:51)
[2020-06-05] MEDS: Pantoprazole Inj IVP SCH (09:19)
[2020-06-05] MEDS: Eliquis 5mg tablet GT SCH ×2 (09:20→17:41)
[2020-06-05] MEDS: Ascorbic Acid 500mg tab GT SCH (09:20)
--- NOTE | 2020-06-05 11:03 | Infectious Diseases Prog Note ---
Assessment/Plan Assessment/Plan A: 1. sepsis. 2. Acinetobacter pneumonia. 3. Leukocytosis is improving. 4. Diabetes. 5. Hypertension. 6. CVA. 7. Dementia. 8. COVID-19 test was negative. 9. Positive blood cultures likely contamination PLAN: 1. continue Colistin inhaler X 2 days Subjective ROS Limited/Unobtainable: Yes Constitutional: Denies: fever Allergies: Coded Allergies: No Known Allergies (Unverified , 05/15/20) Objective Last 24 Hour Vital Signs Date Time Temp Pulse Resp B/P (MAP) Pulse Ox O2 Delivery O2 Flow Rate FiO2 06/05/20 09:19 109/63 06/05/20 09:00 Trach Collar 8.0 06/05/20 08:28 81 16 98 Cool Aerosol 5.0 28 80 16 98 06/05/20 08:00 97.7 80 20 109/63 (78) 100 06/05/20 07:30 99 T-Piece 5.0 28 06/05/20 06:00 87 155/72 06/05/20 04:00 99.5 87 20 155/72 (99) 100 06/05/20 04:00 86 06/05/20 01:44 100 T-Piece 5.0 28 06/05/20 00:00 98.5 89 18 153/72 (99) 100 06/04/20 22:14 66 20 100 Cool Aerosol 5.0 28 68 20 100 06/04/20 22:03 86 148/71 06/04/20 21:00 Trach Collar 8.0 06/04/20 20:00 68 06/04/20 20:00 97.9 91 20 116/60 (78) 96 06/04/20 19:26 99 T-Piece 5.0 28 06/04/20 17:55 130/61 06/04/20 16:00 68 06/04/20 16:00 98.6 81 19 130/61 (84) 100 06/04/20 14:08 132/57 06/04/20 14:08 77 132/57 06/04/20 13:56 97 T-Piece 5.0 28 06/04/20 12:00 99.0 77 18 132/57 (82) 96 06/04/20 12:00 77 Height (Feet): 5 Height (Inches): 3.00 Weight (Pounds): 157 HEENT: mucous membranes moist, status post trach Respiratory/Chest: lungs clear, other - on T bar Cardiovascular: normal rate Abdomen: soft, non tender, other - GT feeding Extremities: no edema Neurologic/Psychiatric: aphasia Current Medications Medications (Trade) Dose Ordered Sig/Cayden Route PRN Reason Start Time Stop Time Status Last Admin Dose Admin Acetaminophen (Tylenol) 650 mg Q4H PRN GT Pain 05/26/20 07:45 06/25/20 07:44 06/03/20 06:18 Apixaban (Eliquis) 5 mg BID GT 05/26/20 09:00 08/24/20 08:59 06/05/20 09:20 Ascorbic Acid (Vitamin C) 250 mg DAILY GT 05/28/20 09:00 06/27/20 08:59 06/05/20 09:20 Clonidine HCl (Catapres Tab) 0.1 mg Q4H PRN ORAL for sbp>150 06/03/20 09:00 09/01/20 08:59 06/03/20 17:37 Colistimethate Sodium (Colistin *inhalation use only*) 75 mg Q12HR@10,22 INH 06/01/20 11:00 06/08/20 10:59 06/05/20 08:23 Dextrose (Dextrose 50%) 25 ml Q30M PRN IV Hypoglycemia 05/26/20 07:30 08/24/20 07:29 Dextrose (Dextrose 50%) 50 ml Q30M PRN IV Hypoglycemia 05/26/20 07:30 08/24/20 07:29 Furosemide (Lasix) 20 mg DAILY GT 06/03/20 09:00 07/03/20 08:59 06/05/20 09:19 Insulin Aspart (NovoLOG) Q6HR SUBQ 05/26/20 12:00 08/24/20 11:59 06/05/20 06:00 Insulin Detemir (Levemir) 25 units BEDTIME SUBQ 06/02/20 21:00 08/31/20 20:59 06/04/20 21:00 Isosorbide Dinitrate (Isordil) 20 mg THREE TIMES A DAY GT 06/02/20 13:00 07/02/20 12:59 06/05/20 09:19 Metoprolol Tartrate (Lopressor) 50 mg EVERY 8 HOURS GT 05/28/20 22:00 08/26/20 21:59 06/05/20 06:00 Pantoprazole (Protonix) 40 mg DAILY IVP 05/26/20 09:00 06/25/20 08:59 06/05/20 09:19 Colby Rock MD Jun 05, 2020 11:03
[2020-06-05 12:00] VITALS: BP 110/71
--- NOTE | 2020-06-05 12:04 | Pulmonology Progress Note ---
Subjective ROS Limited/Unobtainable: Yes Constitutional: Denies: fever Allergies: Coded Allergies: No Known Allergies (Unverified , 05/15/20) Objective Last 24 Hour Vital Signs Date Time Temp Pulse Resp B/P (MAP) Pulse Ox O2 Delivery O2 Flow Rate FiO2 06/05/20 09:19 109/63 06/05/20 09:00 Trach Collar 8.0 06/05/20 08:28 81 16 98 Cool Aerosol 5.0 28 80 16 98 06/05/20 08:00 97.7 80 20 109/63 (78) 100 06/05/20 07:30 99 T-Piece 5.0 28 06/05/20 06:00 87 155/72 06/05/20 04:00 99.5 87 20 155/72 (99) 100 06/05/20 04:00 86 06/05/20 01:44 100 T-Piece 5.0 28 06/05/20 00:00 98.5 89 18 153/72 (99) 100 06/04/20 22:14 66 20 100 Cool Aerosol 5.0 68 20 100 06/04/20 22:03 86 148/71 06/04/20 21:00 Trach Collar 8.0 06/04/20 20:00 68 06/04/20 20:00 97.9 91 20 116/60 (78) 96 06/04/20 19:26 99 T-Piece 5.0 28 06/04/20 17:55 130/61 06/04/20 16:00 68 06/04/20 16:00 98.6 81 19 130/61 (84) 100 06/04/20 14:08 132/57 06/04/20 14:08 77 132/57 06/04/20 13:56 97 T-Piece 5.0 28 Intake and Output 06/04/20 06/05/20 19:00 07:00 Intake Total 85 ml Output Total 2200 ml 700 ml Balance -2115 ml -700 ml Intake Oral 0 ml Free Water 50 ml Tube Feeding 35 ml Output Urine Total 2200 ml 700 ml # Voids 3 1 # Bowel Movements 2 Current Medications Medications (Trade) Dose Ordered Sig/Cayden Route PRN Reason Start Time Stop Time Status Last Admin Dose Admin Acetaminophen (Tylenol) 650 mg Q4H PRN GT Pain 05/26/20 07:45 06/25/20 07:44 9/4/20 06:18 Apixaban (Eliquis) 5 mg BID GT 05/26/20 09:00 08/24/20 08:59 06/05/20 09:20 Ascorbic Acid (Vitamin C) 250 mg DAILY GT 05/28/20 09:00 06/27/20 08:59 06/05/20 09:20 Clonidine HCl (Catapres Tab) 0.1 mg Q4H PRN ORAL for sbp>150 06/03/20 09:00 09/01/20 08:59 06/03/20 17:37 Colistimethate Sodium (Colistin *inhalation use only*) 75 mg Q12HR@10,22 INH 06/01/20 11:00 06/08/20 10:59 06/05/20 08:23 Dextrose (Dextrose 50%) 25 ml Q30M PRN IV Hypoglycemia 05/26/20 07:30 08/24/20 07:29 Dextrose (Dextrose 50%) 50 ml Q30M PRN IV Hypoglycemia 05/26/20 07:30 08/24/20 07:29 Furosemide (Lasix) 20 mg DAILY GT 06/03/20 09:00 07/03/20 08:59 06/05/20 09:19 Insulin Aspart (NovoLOG) Q6HR SUBQ 05/26/20 12:00 08/24/20 11:59 06/05/20 06:00 Insulin Detemir (Levemir) 25 units BEDTIME SUBQ 06/02/20 21:00 08/31/20 20:59 06/04/20 21:00 Isosorbide Dinitrate (Isordil) 20 mg THREE TIMES A DAY GT 06/02/20 13:00 07/02/20 12:59 06/05/20 09:19 Metoprolol Tartrate (Lopressor) 50 mg EVERY 8 HOURS GT 05/28/20 22:00 08/26/20 21:59 06/05/20 06:00 Pantoprazole (Protonix) 40 mg DAILY IVP 05/26/20 09:00 06/25/20 08:59 06/05/20 09:19 Assessment/Plan Assessment/Plan Pulmonary Progress Note Subjective ROS Limited/Unobtainable: Yes Constitutional: Reports: fever, other - Se=167 Allergies: Coded Allergies: No Known Allergies (Unverified , 05/15/20) Subjective care noted MDRO - Acinetobacter pneumonia wbc noted stable overnight Objective Vital Signs noted Objective WDWN NAD trach - t piece reduced breath sounds bilaterally with some rhonchi [id number] without MRG NABS nontender GT no CCE withdrawn Laboratory Tests noted Assessment/Plan Assessment/Plan leukocytosis sepsis Afib, chronic encephalopathy trach respiratory failure elevated troponin anemia bacteremia- staph fevers better hypertension PLAN inhaled colisitin prn clonidine isolation ID follow up and recommendations and clearance dc to snf soon pending ID clearance respiratory care snf meds suction monitor cultures eliquis and monitor HH card follow up impression, plan, and exam edited and reviewed in detail care discussed with John Wilson MD Jun 05, 2020 12:04
[2020-06-05 16:00] VITALS: BP 120/67
[2020-06-05 20:00] VITALS: BP 144/60
[2020-06-05] MEDS: Levemir Flexpen SUBQ SCH (21:04)
[2020-06-06] VITALS: BP 145/57
[2020-06-06] MEDS: Acetaminophen 650mg/20.3ml GT PRN ×2 (01:15→12:14)
[2020-06-06 04:00] VITALS: BP 135/61
[2020-06-06] MEDS: Metoprolol Tartrate 50mg tab GT SCH ×3 (06:08→21:47)
[2020-06-06] MEDS: NovoLOG Insulin Flexpen SUBQ SCH ×5 (06:11→21:57)
[2020-06-06] MEDS: Colistin for inhalation INH SCH ×2 (07:38→21:37)
[2020-06-06 08:00] VITALS: BP 119/45
[2020-06-06] MEDS: Eliquis 5mg tablet GT SCH ×2 (08:59→18:02)
[2020-06-06] MEDS: Ascorbic Acid 500mg tab GT SCH (08:59)
[2020-06-06] MEDS: Pantoprazole Inj IVP SCH (09:01)
--- NOTE | 2020-06-06 10:50 | Infectious Diseases Prog Note ---
Assessment/Plan Assessment/Plan antibiotics : inhaled colistin 9.2.20 - A 1. aspiration pneumonia with acenitobacter 2. + blood cultures with coag neg staph likely contaminated 3. leucocytosis improving 4. diabetes mellitus 5. hypertension 6. CVA 7. dementia P 1. continue inhaled colistin 1 more day 2. will follow up cultures Subjective ROS Limited/Unobtainable: Yes Allergies: Coded Allergies: No Known Allergies (Unverified , 05/15/20) Objective Last 24 Hour Vital Signs Date Time Temp Pulse Resp B/P (MAP) Pulse Ox O2 Delivery O2 Flow Rate FiO2 06/06/20 09:00 85 06/06/20 09:00 119/45 06/06/20 09:00 Trach Collar 8.0 06/06/20 08:00 99.3 81 20 119/45 (69) 100 06/06/20 07:45 71 20 100 Cool Aerosol 5.0 28 73 18 99 06/06/20 07:45 98 T-Piece 5.0 28 06/06/20 06:08 88 135/61 06/06/20 04:00 88 06/06/20 04:00 99.4 89 20 135/61 (85) 97 06/06/20 01:52 99.0 06/06/20 01:25 99 T-Piece 5.0 28 06/06/20 00:00 100.7 76 20 145/57 (86) 97 06/05/20 22:06 73 18 100 T-Piece 5.0 28 06/05/20 21:51 74 18 100 T-Piece 5.0 28 06/05/20 21:04 79 144/60 06/05/20 21:00 Trach Collar 8.0 06/05/20 20:00 99.6 79 18 144/60 (88) 95 06/05/20 20:00 76 06/05/20 19:50 100 T-Piece 5.0 28 06/05/20 17:42 120/67 06/05/20 16:00 72 06/05/20 16:00 98.1 81 18 120/67 (84) 97 06/05/20 14:10 79 110/71 06/05/20 12:43 98 T-Piece 5.0 28 06/05/20 12:17 110/71 06/05/20 12:00 79 06/05/20 12:00 96.8 79 19 110/71 (84) 98 Height (Feet): 5 Height (Inches): 3.00 Weight (Pounds): 157 HEENT: status post trach Respiratory/Chest: lungs clear Cardiovascular: normal rate, regular rhythm, no gallop/murmur Abdomen: soft, non tender, other - GT Extremities: no edema Current Medications Medications (Trade) Dose Ordered Sig/Cayden Route PRN Reason Start Time Stop Time Status Last Admin Dose Admin Acetaminophen (Tylenol) 650 mg Q4H PRN GT Pain 05/26/20 07:45 06/25/20 07:44 06/06/20 01:15 Apixaban (Eliquis) 5 mg BID GT 05/26/20 09:00 08/24/20 08:59 06/06/20 08:59 Ascorbic Acid (Vitamin C) 250 mg DAILY GT 05/28/20 09:00 06/27/20 08:59 06/06/20 08:59 Clonidine HCl (Catapres Tab) 0.1 mg Q4H PRN ORAL for sbp>150 06/03/20 09:00 09/01/20 08:59 06/03/20 17:37 Colistimethate Sodium (Colistin *inhalation use only*) 75 mg Q12HR@10,22 INH 06/01/20 11:00 06/08/20 10:59 06/06/20 07:38 Dextrose (Dextrose 50%) 25 ml Q30M PRN IV Hypoglycemia 05/26/20 07:30 08/24/20 07:29 Dextrose (Dextrose 50%) 50 ml Q30M PRN IV Hypoglycemia 05/26/20 07:30 08/24/20 07:29 Furosemide (Lasix) 20 mg DAILY GT 06/03/20 09:00 07/03/20 08:59 06/06/20 09:00 Insulin Aspart (NovoLOG) Q6HR SUBQ 05/26/20 12:00 08/24/20 11:59 06/06/20 06:11 Insulin Detemir (Levemir) 25 units BEDTIME SUBQ 06/02/20 21:00 08/31/20 20:59 06/05/20 21:04 Isosorbide Dinitrate (Isordil) 20 mg THREE TIMES A DAY GT 06/02/20 13:00 07/02/20 12:59 06/06/20 09:00 Metoprolol Tartrate (Lopressor) 50 mg EVERY 8 HOURS GT 05/28/20 22:00 08/26/20 21:59 06/06/20 06:08 Pantoprazole (Protonix) 40 mg DAILY IVP 05/26/20 09:00 06/25/20 08:59 06/06/20 09:01 Mina Salamanca MD Jun 06, 2020 10:50
[2020-06-06 12:00] VITALS: BP 124/76
--- NOTE | 2020-06-06 12:19 | Surgery Progress Note ---
Surgery Progress Note Subjective Additional Comments no acute events comfortable stable labs reviewed exam unchanged Objective Last 24 Hour Vital Signs Date Time Temp Pulse Resp B/P (MAP) Pulse Ox O2 Delivery O2 Flow Rate FiO2 06/06/20 12:11 124/76 06/06/20 09:00 85 06/06/20 09:00 119/45 06/06/20 09:00 Trach Collar 8.0 06/06/20 08:00 99.3 81 20 119/45 (69) 100 06/06/20 07:45 71 20 100 Cool Aerosol 5.0 28 73 18 99 06/06/20 07:45 98 T-Piece 5.0 28 06/06/20 06:08 88 135/61 06/06/20 04:00 88 06/06/20 04:00 99.4 89 20 135/61 (85) 97 06/06/20 01:52 99.0 06/06/20 01:25 99 T-Piece 5.0 28 06/06/20 00:00 100.7 76 20 145/57 (86) 97 06/05/20 22:06 73 18 100 T-Piece 5.0 28 06/05/20 21:51 74 18 100 T-Piece 5.0 28 06/05/20 21:04 79 144/60 06/05/20 21:00 Trach Collar 8.0 06/05/20 20:00 99.6 79 18 144/60 (88) 95 06/05/20 20:00 76 06/05/20 19:50 100 T-Piece 5.0 28 06/05/20 17:42 120/67 06/05/20 16:00 72 06/05/20 16:00 98.1 81 18 120/67 (84) 97 06/05/20 14:10 79 110/71 06/05/20 12:43 98 T-Piece 5.0 28 I&O Intake and Output 06/05/20 06/06/20 19:00 07:00 Intake Total 25 ml 35 ml Output Total 1200 ml 1000 ml Balance -1175 ml -965 ml Tube Feeding 25 ml 35 ml Output Urine Total 1200 ml 1000 ml # Voids 3 # Bowel Movements 1 3 Dressing: other Wound: other Cardiovascular: RSR Respiratory: decreased breath sounds Abdomen: soft, non-tender, present bowel sounds Extremities: no edema, no tenderness, no cyanosis Plan Problems: (1) Anemia (2) Sepsis Assessment & Plan: 74-year-old female with medical comorbidities present with leukocytosis anemia abnormal labs hypoalbuminemia failure to thrive malnutrition worsening decubitus ulcer admitted further care and management was prior on vancomycin now on IV antibiotics admitted and under monitoring. Full evaluation does not at the bedside and evaluation performed. Trach stable PEG tube stable skin deteriorating per her turgor worsening decubitus ulcer malnutrition continue tube feeds as tolerated continue antibiotics wounds unlikely etiology of patient's sepsis we will monitor and follow with recommendations trend labs thank you for letting participate patient's care improving DAILY ESTIMATED NEEDS: Needs based on Wound, DM/ 57kg abw 25-30 kcals/kg 0756-4710 total kcals 1.25-1.8 g protein/kg 71-103 g total protein 20-25 mL/kg 7089-8860 total fluid mLs NUTRITION DIAGNOSIS: * Increased kcal/prot needs R/T wound healing as evidenced by pt admiteed w/ unstageable sacral wound, refer to full wound care eval. * Swallowing difficulty R/T dysphagia, respiratory status as evidenced by pt on T-collar, PEG dep. CURRENT TF:Glucerna 1.2 @ 50ml/hr x 24 hrs ENTERAL NUTRITION RECOMMENDATIONS: Glucerna 1.2 @ 50ml/hr x 24 hrs to provide 1200ml, 1440kcal, 72g, 966ml free water * Maintain current TF * HOB over 30 degrees/ water flush per MD ADDITIONAL RECOMMENDATIONS: * Calibrated bedscale wt -w/ added p200 mattress + pump * Wound healing: TF @ goal will provide 100% RDI Add Vit C 250mg QD + Endy BID via PEG * Monitor lytes closely w/ Lasix, replete as needed (3) Elevated troponin (4) Pneumonia (5) Encounter for generalized patient complaints (6) Decubitus skin ulcer Assessment & Plan: Patient presented on admission with an Unstageable Sacral Pressure injury(L)9.8cm x (W)6.7cm. Base of wound is 80% necrotic ,20% mixed slough ,beefy red. Small amt serous exudate. Mild odor noted. Borders are macerated with surrounding maroon and indurated borders. MASD noted to Mons-pubis outer aspects of R and L buttocks. Perineum and bilat ischial tuberosities. Affected areas mentioned are erythematous, macerated with scattered satellite lesions. Non-Blanchable erythema without induration or fluctuance R and L Heels. Skin assessed under tracheal collar and no evidence of skin breakdown noted. Assessed pt and necrotic base of Sacral wound crosshatched by . Unstageable Sacral Pressure Injury (L)9.8cm x (W)7cm. 90% dry necrotic cap ,10% lj borders. Edges are adherent to base of wound. Periwound is pink and dry. No odor or exudate noted. Small external haemorrhoid with small amt bleeding noted. R and L heels are both blanchable. No new skin concerns noted. Wound Tx are effective and continued as ordered . All wound prevention protocols continued as care-planned. Pt has an APM/DANIEL Mattress overlay and is being positioned as per tolerance and within protocols. Tx.Plan: Cleanse Sacral wound with Saline. Apply TheraHoney. Apply Moisture Barrier Paste periwound. Cover with Optifoam Drsg. Change Daily and prn. Apply Moisture Barrier Paste to Mons Pubis, Perineum and buttocks with each Incontinence care. Apply Cavilon Skin Barrier to Both heels and Malleoli. Cover each site with Optifoam Drsg. Change every 7 days and prn. Reposition at least every 2hours or as tolerated. Off-load heels with Pillow. Reposition at least every 2hours or as tolerated. APM/DANEIL mattress overlay. Adrian Gar Jun 06, 2020 12:18
--- NOTE | 2020-06-06 13:24 | Pulmonology Progress Note ---
Subjective ROS Limited/Unobtainable: No Constitutional: Denies: fever Allergies: Coded Allergies: No Known Allergies (Unverified , 05/15/20) Objective Last 24 Hour Vital Signs Date Time Temp Pulse Resp B/P (MAP) Pulse Ox O2 Delivery O2 Flow Rate FiO2 06/06/20 12:49 86 124/76 06/06/20 12:44 97.6 06/06/20 12:11 124/76 06/06/20 12:00 99.3 80 19 124/76 (92) 100 06/06/20 12:00 86 06/06/20 09:00 85 06/06/20 09:00 119/45 06/06/20 09:00 Trach Collar 8.0 06/06/20 08:00 99.3 81 20 119/45 (69) 100 06/06/20 07:45 71 20 100 Cool Aerosol 5.0 28 73 18 99 06/06/20 07:45 98 T-Piece 5.0 28 06/06/20 06:08 88 135/61 06/06/20 04:00 88 06/06/20 04:00 99.4 89 20 135/61 (85) 97 06/06/20 01:25 99 T-Piece 5.0 28 06/06/20 00:00 100.7 76 20 145/57 (86) 97 06/05/20 22:06 73 18 100 T-Piece 5.0 28 06/05/20 21:51 74 18 100 T-Piece 5.0 28 06/05/20 21:04 79 144/60 06/05/20 21:00 Trach Collar 8.0 06/05/20 20:00 99.6 79 18 144/60 (88) 95 06/05/20 20:00 76 06/05/20 19:50 100 T-Piece 5.0 28 06/05/20 17:42 120/67 06/05/20 16:00 72 06/05/20 16:00 98.1 81 18 120/67 (84) 97 06/05/20 14:10 79 110/71 Intake and Output 06/05/20 06/06/20 19:00 07:00 Intake Total 25 ml 35 ml Output Total 1200 ml 1000 ml Balance -1175 ml -965 ml Tube Feeding 25 ml 35 ml Output Urine Total 1200 ml 1000 ml # Voids 3 # Bowel Movements 1 3 Current Medications Medications (Trade) Dose Ordered Sig/Cayden Route PRN Reason Start Time Stop Time Status Last Admin Dose Admin Acetaminophen (Tylenol) 650 mg Q4H PRN GT Pain 05/26/20 07:45 06/25/20 07:44 06/06/20 12:14 Apixaban (Eliquis) 5 mg BID GT 05/26/20 09:00 08/24/20 08:59 06/06/20 08:59 Ascorbic Acid (Vitamin C) 250 mg DAILY GT 05/28/20 09:00 06/27/20 08:59 06/06/20 08:59 Clonidine HCl (Catapres Tab) 0.1 mg Q4H PRN ORAL for sbp>150 06/03/20 09:00 09/01/20 08:59 06/03/20 17:37 Colistimethate Sodium (Colistin *inhalation use only*) 75 mg Q12HR@10,22 INH 06/01/20 11:00 06/08/20 10:59 06/06/20 07:38 Dextrose (Dextrose 50%) 25 ml Q30M PRN IV Hypoglycemia 05/26/20 07:30 08/24/20 07:29 Dextrose (Dextrose 50%) 50 ml Q30M PRN IV Hypoglycemia 05/26/20 07:30 08/24/20 07:29 Furosemide (Lasix) 20 mg DAILY GT 06/03/20 09:00 07/03/20 08:59 06/06/20 09:00 Insulin Aspart (NovoLOG) Q6HR SUBQ 05/26/20 12:00 08/24/20 11:59 06/06/20 12:14 Insulin Detemir (Levemir) 25 units BEDTIME SUBQ 06/02/20 21:00 08/31/20 20:59 06/05/20 21:04 Isosorbide Dinitrate (Isordil) 20 mg THREE TIMES A DAY GT 06/02/20 13:00 07/02/20 12:59 06/06/20 12:11 Metoprolol Tartrate (Lopressor) 50 mg EVERY 8 HOURS GT 05/28/20 22:00 08/26/20 21:59 06/06/20 12:49 Pantoprazole (Protonix) 40 mg DAILY IVP 05/26/20 09:00 06/25/20 08:59 06/06/20 09:01 Assessment/Plan Assessment/Plan Pulmonary Progress Note Subjective ROS Limited/Unobtainable: Yes Allergies: Coded Allergies: No Known Allergies (Unverified , 05/15/20) Subjective care noted MDRO - Acinetobacter pneumonia wbc noted stable overnight Objective Vital Signs noted Objective WDWN NAD trach - t piece reduced breath sounds bilaterally [id number] without MRG NABS nontender GT no CCE withdrawn Laboratory Tests noted Assessment/Plan Assessment/Plan leukocytosis sepsis Afib, chronic encephalopathy trach respiratory failure elevated troponin anemia bacteremia- staph fevers better hypertension PLAN inhaled colisitin prn clonidine isolation ID follow up and recommendations and clearance dc to snf soon pending ID clearance respiratory care snf meds suction monitor cultures eliquis and monitor HH card follow up impression, plan, and exam edited and reviewed in detail care discussed with John Wilson MD Jun 06, 2020 13:24
[2020-06-06 16:00] VITALS: BP 131/63
[2020-06-06 20:00] VITALS: BP 167/77
[2020-06-06] MEDS: Levemir Flexpen SUBQ SCH (21:47)
[2020-06-07] VITALS: BP 158/80
--- NOTE | 2020-06-07 00:27 | Cardiology Progress Note ---
Subjective DATE OF SERVICE: Jun 06, 2020 On T-collar Sputum culture A.baumanni Decreasing thin secretions Monitor: Sinus with PAFIb and short runs of aberrancy. Objective Last 24 Hour Vital Signs Date Time Temp Pulse Resp B/P (MAP) Pulse Ox O2 Delivery O2 Flow Rate FiO2 06/06/20 21:47 86 167/77 06/06/20 20:00 87 06/06/20 20:00 98.4 87 20 167/77 (107) 100 06/06/20 19:45 96 T-Piece 5.0 28 06/06/20 18:01 131/63 06/06/20 16:00 98.8 82 20 131/63 (85) 100 06/06/20 16:00 82 06/06/20 13:29 100 T-Piece 5.0 28 06/06/20 12:49 86 124/76 06/06/20 12:44 97.6 06/06/20 12:11 124/76 06/06/20 12:00 99.3 80 19 124/76 (92) 100 06/06/20 12:00 86 06/06/20 09:00 85 06/06/20 09:00 119/45 06/06/20 09:00 Trach Collar 8.0 06/06/20 08:00 99.3 81 20 119/45 (69) 100 06/06/20 07:45 71 20 100 Cool Aerosol 5.0 28 73 18 99 06/06/20 07:45 98 T-Piece 5.0 28 06/06/20 06:08 88 135/61 06/06/20 04:00 88 06/06/20 04:00 99.4 89 20 135/61 (85) 97 06/06/20 01:25 99 T-Piece 5.0 28 ROS: no change from my assessment of 05/25/20 - remains unobtainable from patient HEENT: normal ENT inspection, Thick Trach secretions RHYTHM: NSR, PACs LUNGS: diminished breath sounds - left, bilateral rhonchi CARDIAC: normal rate, regular rhythm, normal S1 and S2, arrhythmia ABDOMEN: normal bowel sounds, non tender, soft, G-Tube intact EXTREMITIES: trace edema, other - sacral decub. noncommunicative Assessment/Plan Assessment/Plan Healthcare associated PNA Left pleural effusion Acute myocardial ischemia with possible NSTE myocardial infarction Sepsis Respiratory failure Hypertension/HHD Parox AFib Conduction system disease with bifasc block Ac/chr diastolic CHF now compensated Low lipid parameters NSVT IRDM with hyperglycemia Hypomagnesemia Resp Rx Antimicrobials; follow-up new sputum culture result manager monitoring Maintenance oral diuretic dosing, trend BNP, and monitor/replace lytes as needed. Full anticoagulation Titrate CV regimen based on clinical parameters - continue current antianginal regimen, including beta pietro. No need for statin Titrate insulin rx Recheck labs and CXR, and finalize maintenance diuretic dose. John Heard MD Jun 07, 2020 00:27
[2020-06-07 04:00] VITALS: BP 180/85
[2020-06-07] MEDS: NovoLOG Insulin Flexpen SUBQ SCH ×3 (06:00→17:28)
[2020-06-07] MEDS: Metoprolol Tartrate 50mg tab GT SCH ×3 (06:41→21:52)
[2020-06-07 07:55] VITALS: BP 138/69
--- NOTE | 2020-06-07 08:16 | Pulmonology Progress Note ---
Subjective ROS Limited/Unobtainable: Yes Constitutional: Denies: fever Allergies: Coded Allergies: No Known Allergies (Unverified , 05/15/20) Subjective care noted MDRO wbc noted plan to dc antibiotics noted Objective Last 24 Hour Vital Signs Date Time Temp Pulse Resp B/P (MAP) Pulse Ox O2 Delivery O2 Flow Rate FiO2 06/07/20 07:55 98.9 78 20 138/69 (92) 100 06/07/20 06:41 85 154/71 06/07/20 04:28 180/85 06/07/20 04:00 90 06/07/20 04:00 98.9 90 20 180/85 (116) 100 06/07/20 01:31 97 T-Piece 5.0 28 06/07/20 00:00 98.6 84 20 158/80 (106) 100 06/07/20 00:00 84 06/06/20 21:47 86 167/77 06/06/20 21:37 88 16 98 Cool Aerosol 5.0 28 86 18 99 06/06/20 21:00 Trach Collar 8.0 06/06/20 20:00 87 06/06/20 20:00 98.4 87 20 167/77 (107) 100 06/06/20 19:45 96 T-Piece 5.0 28 06/06/20 18:01 131/63 06/06/20 16:00 98.8 82 20 131/63 (85) 100 06/06/20 16:00 82 06/06/20 13:29 100 T-Piece 5.0 28 06/06/20 12:49 86 124/76 06/06/20 12:44 97.6 06/06/20 12:11 124/76 06/06/20 12:00 99.3 80 19 124/76 (92) 100 06/06/20 12:00 86 06/06/20 09:00 85 06/06/20 09:00 119/45 06/06/20 09:00 Trach Collar 8.0 Intake and Output 06/06/20 06/07/20 19:00 07:00 Intake Total 150 ml 500 ml Output Total 1000 ml 700 ml Balance -850 ml -200 ml Free Water 100 ml 100 ml Tube Feeding 50 ml 400 ml Output Urine Total 1000 ml 700 ml # Bowel Movements 1 Objective WDWN NAD trach reduced breath sounds bilaterally without rhonchi [id number] without MRG NABS nontender GT no CCE withdrawn Current Medications Medications (Trade) Dose Ordered Sig/Cayden Route PRN Reason Start Time Stop Time Status Last Admin Dose Admin Acetaminophen (Tylenol) 650 mg Q4H PRN GT Pain 05/26/20 07:45 06/25/20 07:44 06/06/20 12:14 Apixaban (Eliquis) 5 mg BID GT 05/26/20 09:00 08/24/20 08:59 06/06/20 18:02 Ascorbic Acid (Vitamin C) 250 mg DAILY GT 05/28/20 09:00 06/27/20 08:59 06/06/20 08:59 Clonidine HCl (Catapres Tab) 0.1 mg Q4H PRN ORAL for sbp>150 06/03/20 09:00 09/01/20 08:59 06/07/20 04:28 Colistimethate Sodium (Colistin *inhalation use only*) 75 mg Q12HR@10,22 INH 06/01/20 11:00 06/08/20 10:59 06/06/20 21:37 Dextrose (Dextrose 50%) 25 ml Q30M PRN IV Hypoglycemia 05/26/20 07:30 08/24/20 07:29 Dextrose (Dextrose 50%) 50 ml Q30M PRN IV Hypoglycemia 05/26/20 07:30 08/24/20 07:29 Furosemide (Lasix) 20 mg DAILY GT 06/03/20 09:00 07/03/20 08:59 06/06/20 09:00 Insulin Aspart (NovoLOG) Q6HR SUBQ 05/26/20 12:00 08/24/20 11:59 06/07/20 06:00 Insulin Detemir (Levemir) 15 units EVERY 12 HOURS SUBQ 06/07/20 09:00 09/05/20 08:59 Isosorbide Dinitrate (Isordil) 20 mg THREE TIMES A DAY GT 06/02/20 13:00 07/02/20 12:59 06/06/20 18:01 Metoprolol Tartrate (Lopressor) 50 mg EVERY 8 HOURS GT 05/28/20 22:00 08/26/20 21:59 06/07/20 06:41 Pantoprazole (Protonix) 40 mg DAILY IVP 05/26/20 09:00 06/25/20 08:59 06/06/20 09:01 Assessment/Plan Assessment/Plan IMPRESSION leukocytosis sepsis Afib, chronic encephalopathy trach respiratory failure elevated troponin anemia bacteremia- staph fevers better hypertension PLAN inhaled colisitin to dc today prn clonidine isolation ID follow up and recommendations and clearance hopefully today pending wbc repeat dc to snf soon pending ID clearance respiratory care snf meds noted suction monitor cultures eliquis as is card follow up impression, plan, and exam edited and reviewed in detail care discussed with Fernie Ledezma MD Jun 07, 2020 08:16
[2020-06-07 09:00] LABS: BASOPHILS % (AUTO) 1.2 % (0.0-2.0); EOSINOPHILS % (AUTO) 3.3 % (0.0-3.0); HEMATOCRIT 29.7 % (37.0-47.0); HEMOGLOBIN 9.4 G/DL (12.0-16.0); LYMPHOCYTES % (AUTO) 11.4 % (20.0-45.0); MEAN CORPUSCULAR VOLUME 77 FL (80-99); MONOCYTES % (AUTO) 6.4 % (1.0-10.0); NEUTROPHILS % (AUTO) 77.7 % (45.0-75.0); PLATELET COUNT 342 K/UL (150-450); RED BLOOD COUNT 3.85 M/UL (4.20-5.40); RED CELL DISTRIBUTION WIDTH 15.6 % (11.6-14.8); WHITE BLOOD COUNT 16.3 K/UL (4.8-10.8)
[2020-06-07] MEDS: Ascorbic Acid 500mg tab GT SCH (09:14)
[2020-06-07] MEDS: Pantoprazole Inj IVP SCH (09:14)
[2020-06-07] MEDS: Eliquis 5mg tablet GT SCH ×2 (09:14→17:25)
[2020-06-07] MEDS: Levemir Flexpen SUBQ SCH ×2 (09:16→21:51)
[2020-06-07 09:52] LABS: ALANINE AMINOTRANSFERASE 17 U/L (12-78); ALBUMIN 2.4 G/DL (3.4-5.0); ALBUMIN/GLOBULIN RATIO 0.5 (1.0-2.7); ALKALINE PHOSPHATASE 96 U/L (46-116); ANION GAP 5 mmol/L (5-15); ASPARTATE AMINO TRANSFERASE 15 U/L (15-37); BILIRUBIN,TOTAL 0.3 MG/DL (0.2-1.0); BLOOD UREA NITROGEN 23 mg/dL (7-18); CALCIUM 9.5 MG/DL (8.5-10.1); CARBON DIOXIDE 32 MMOL/L (21-32); CHLORIDE 100 MMOL/L (98-107); CREATININE 0.6 MG/DL (0.55-1.30); POTASSIUM 3.9 MMOL/L (3.5-5.1); SODIUM 137 MMOL/L (136-145)
--- NOTE | 2020-06-07 11:00 | Infectious Diseases Prog Note ---
Assessment/Plan Assessment/Plan antibiotics : inhaled colistin 9.2.20 - A 1. aspiration pneumonia with acenitobacter 2. + blood cultures with coag neg staph likely contaminated 3. leucocytosis 4. diabetes mellitus 5. hypertension 6. CVA 7. dementia P 1. d/c inhaled colistin 2. observe off antibiotics 3. will follow up cultures Subjective ROS Limited/Unobtainable: Yes Allergies: Coded Allergies: No Known Allergies (Unverified , 05/15/20) Objective Last 24 Hour Vital Signs Date Time Temp Pulse Resp B/P (MAP) Pulse Ox O2 Delivery O2 Flow Rate FiO2 06/07/20 09:15 138/69 06/07/20 07:55 98.9 78 20 138/69 (92) 100 06/07/20 07:52 76 06/07/20 06:41 85 154/71 06/07/20 04:28 180/85 06/07/20 04:00 90 06/07/20 04:00 98.9 90 20 180/85 (116) 100 06/07/20 01:31 97 T-Piece 5.0 28 06/07/20 00:00 98.6 84 20 158/80 (106) 100 06/07/20 00:00 84 06/06/20 21:47 86 167/77 06/06/20 21:37 88 16 98 Cool Aerosol 5.0 28 86 18 99 06/06/20 21:00 Trach Collar 8.0 06/06/20 20:00 87 06/06/20 20:00 98.4 87 20 167/77 (107) 100 06/06/20 19:45 96 T-Piece 5.0 28 06/06/20 18:01 131/63 06/06/20 16:00 98.8 82 20 131/63 (85) 100 06/06/20 16:00 82 06/06/20 13:29 100 T-Piece 5.0 28 06/06/20 12:49 86 124/76 06/06/20 12:44 97.6 06/06/20 12:11 124/76 06/06/20 12:00 99.3 80 19 124/76 (92) 100 06/06/20 12:00 86 Height (Feet): 5 Height (Inches): 3.00 Weight (Pounds): 157 HEENT: status post trach Respiratory/Chest: lungs clear Cardiovascular: normal rate, regular rhythm, no gallop/murmur Abdomen: soft, non tender, other - GT Extremities: no edema Laboratory Tests Test 06/07/20 08:30 White Blood Count 16.3 K/UL (4.8-10.8) H Red Blood Count 3.85 M/UL (4.20-5.40) L Hemoglobin 9.4 G/DL (12.0-16.0) L Hematocrit 29.7 % (37.0-47.0) L Mean Corpuscular Volume 77 FL (80-99) L Mean Corpuscular Hemoglobin 24.3 PG (27.0-31.0) L Mean Corpuscular Hemoglobin Concent 31.5 G/DL (32.0-36.0) L Red Cell Distribution Width 15.6 % (11.6-14.8) H Platelet Count 342 K/UL (150-450) Mean Platelet Volume 8.9 FL (6.5-10.1) Neutrophils (%) (Auto) 77.7 % (45.0-75.0) H Lymphocytes (%) (Auto) 11.4 % (20.0-45.0) L Monocytes (%) (Auto) 6.4 % (1.0-10.0) Eosinophils (%) (Auto) 3.3 % (0.0-3.0) H Basophils (%) (Auto) 1.2 % (0.0-2.0) Sodium Level 137 MMOL/L (136-145) Potassium Level 3.9 MMOL/L (3.5-5.1) Chloride Level 100 MMOL/L (98-107) Carbon Dioxide Level 32 MMOL/L (21-32) Anion Gap 5 mmol/L (5-15) Blood Urea Nitrogen 23 mg/dL (7-18) H Creatinine 0.6 MG/DL (0.55-1.30) Estimat Glomerular Filtration Rate > 60 mL/min (>60) Glucose Level 220 MG/DL (74-106) H Calcium Level 9.5 MG/DL (8.5-10.1) Magnesium Level 1.9 MG/DL (1.8-2.4) Total Bilirubin 0.3 MG/DL (0.2-1.0) Aspartate Amino Transf (AST/SGOT) 15 U/L (15-37) Alanine Aminotransferase (ALT/SGPT) 17 U/L (12-78) Alkaline Phosphatase 96 U/L (46-116) Pro-B-Type Natriuretic Peptide 3073 pg/mL (0-125) H Total Protein 7.0 G/DL (6.4-8.2) Albumin 2.4 G/DL (3.4-5.0) L Globulin 4.6 g/dL Albumin/Globulin Ratio 0.5 (1.0-2.7) L Current Medications Medications (Trade) Dose Ordered Sig/Cayden Route PRN Reason Start Time Stop Time Status Last Admin Dose Admin Acetaminophen (Tylenol) 650 mg Q4H PRN GT Pain 05/26/20 07:45 06/25/20 07:44 06/06/20 12:14 Apixaban (Eliquis) 5 mg BID GT 05/26/20 09:00 08/24/20 08:59 06/07/20 09:14 Ascorbic Acid (Vitamin C) 250 mg DAILY GT 05/28/20 09:00 06/27/20 08:59 06/07/20 09:14 Clonidine HCl (Catapres Tab) 0.1 mg Q4H PRN ORAL for sbp>150 06/03/20 09:00 09/01/20 08:59 06/07/20 04:28 Colistimethate Sodium (Colistin *inhalation use only*) 75 mg Q12HR@10,22 INH 06/01/20 11:00 06/08/20 10:59 06/06/20 21:37 Dextrose (Dextrose 50%) 25 ml Q30M PRN IV Hypoglycemia 05/26/20 07:30 08/24/20 07:29 Dextrose (Dextrose 50%) 50 ml Q30M PRN IV Hypoglycemia 05/26/20 07:30 08/24/20 07:29 Furosemide (Lasix) 20 mg DAILY GT 06/03/20 09:00 07/03/20 08:59 06/07/20 09:14 Insulin Aspart (NovoLOG) Q6HR SUBQ 05/26/20 12:00 08/24/20 11:59 06/07/20 06:00 Insulin Detemir (Levemir) 15 units EVERY 12 HOURS SUBQ 06/07/20 09:00 09/05/20 08:59 06/07/20 09:16 Isosorbide Dinitrate (Isordil) 20 mg THREE TIMES A DAY GT 06/02/20 13:00 07/02/20 12:59 06/07/20 09:15 Metoprolol Tartrate (Lopressor) 50 mg EVERY 8 HOURS GT 05/28/20 22:00 08/26/20 21:59 06/07/20 06:41 Pantoprazole (Protonix) 40 mg DAILY IVP 05/26/20 09:00 06/25/20 08:59 06/07/20 09:14 Mina Salamanca MD Jun 07, 2020 11:00
[2020-06-07 11:41] VITALS: BP 144/69
--- NOTE | 2020-06-07 12:19 | Surgery Progress Note ---
Surgery Progress Note Subjective Additional Comments pending CXR results off abx labs noted exam stable Objective Last 24 Hour Vital Signs Date Time Temp Pulse Resp B/P (MAP) Pulse Ox O2 Delivery O2 Flow Rate FiO2 06/07/20 11:41 98.1 78 20 144/69 (94) 100 06/07/20 09:15 138/69 06/07/20 09:00 Trach Collar 8.0 06/07/20 07:55 98.9 78 20 138/69 (92) 100 06/07/20 07:52 76 06/07/20 06:41 85 154/71 06/07/20 06:40 100 T-Piece 5.0 28 06/07/20 04:28 180/85 06/07/20 04:00 90 06/07/20 04:00 98.9 90 20 180/85 (116) 100 06/07/20 01:31 97 T-Piece 5.0 28 06/07/20 00:00 98.6 84 20 158/80 (106) 100 06/07/20 00:00 84 06/06/20 21:47 86 167/77 06/06/20 21:37 88 16 98 Cool Aerosol 5.0 28 86 18 99 06/06/20 21:00 Trach Collar 8.0 06/06/20 20:00 87 06/06/20 20:00 98.4 87 20 167/77 (107) 100 06/06/20 19:45 96 T-Piece 5.0 28 06/06/20 18:01 131/63 06/06/20 16:00 98.8 82 20 131/63 (85) 100 06/06/20 16:00 82 06/06/20 13:29 100 T-Piece 5.0 06/06/20 12:49 86 124/76 06/06/20 12:44 97.6 I&O Intake and Output 06/06/20 06/07/20 19:00 07:00 Intake Total 150 ml 500 ml Output Total 1000 ml 700 ml Balance -850 ml -200 ml Free Water 100 ml 100 ml Tube Feeding 50 ml 400 ml Output Urine Total 1000 ml 700 ml # Bowel Movements 1 Dressing: other Wound: other Cardiovascular: RSR Respiratory: decreased breath sounds Abdomen: soft, non-tender, present bowel sounds Extremities: no edema, no cyanosis Laboratory Tests Test 06/07/20 08:30 White Blood Count 16.3 K/UL (4.8-10.8) H Red Blood Count 3.85 M/UL (4.20-5.40) L Hemoglobin 9.4 G/DL (12.0-16.0) L Hematocrit 29.7 % (37.0-47.0) L Mean Corpuscular Volume 77 FL (80-99) L Mean Corpuscular Hemoglobin 24.3 PG (27.0-31.0) L Mean Corpuscular Hemoglobin Concent 31.5 G/DL (32.0-36.0) L Red Cell Distribution Width 15.6 % (11.6-14.8) H Platelet Count 342 K/UL (150-450) Mean Platelet Volume 8.9 FL (6.5-10.1) Neutrophils (%) (Auto) 77.7 % (45.0-75.0) H Lymphocytes (%) (Auto) 11.4 % (20.0-45.0) L Monocytes (%) (Auto) 6.4 % (1.0-10.0) Eosinophils (%) (Auto) 3.3 % (0.0-3.0) H Basophils (%) (Auto) 1.2 % (0.0-2.0) Sodium Level 137 MMOL/L (136-145) Potassium Level 3.9 MMOL/L (3.5-5.1) Chloride Level 100 MMOL/L (98-107) Carbon Dioxide Level 32 MMOL/L (21-32) Anion Gap 5 mmol/L (5-15) Blood Urea Nitrogen 23 mg/dL (7-18) H Creatinine 0.6 MG/DL (0.55-1.30) Estimat Glomerular Filtration Rate > 60 mL/min (>60) Glucose Level 220 MG/DL (74-106) H Calcium Level 9.5 MG/DL (8.5-10.1) Magnesium Level 1.9 MG/DL (1.8-2.4) Total Bilirubin 0.3 MG/DL (0.2-1.0) Aspartate Amino Transf (AST/SGOT) 15 U/L (15-37) Alanine Aminotransferase (ALT/SGPT) 17 U/L (12-78) Alkaline Phosphatase 96 U/L (46-116) Pro-B-Type Natriuretic Peptide 3073 pg/mL (0-125) H Total Protein 7.0 G/DL (6.4-8.2) Albumin 2.4 G/DL (3.4-5.0) L Globulin 4.6 g/dL Albumin/Globulin Ratio 0.5 (1.0-2.7) L Plan Problems: (1) Anemia (2) Sepsis Assessment & Plan: 74-year-old female with medical comorbidities present with leukocytosis anemia abnormal labs hypoalbuminemia failure to thrive malnutrition worsening decubitus ulcer admitted further care and management was prior on vancomycin now on IV antibiotics admitted and under monitoring. Full evaluation does not at the bedside and evaluation performed. Trach stable PEG tube stable skin deteriorating per her turgor worsening decubitus ulcer malnutrition continue tube feeds as tolerated continue antibiotics wounds unlikely etiology of patient's sepsis we will monitor and follow with recommendations trend labs thank you for letting participate patient's care improving DAILY ESTIMATED NEEDS: Needs based on Wound, DM/ 57kg abw 25-30 kcals/kg 7775-8686 total kcals 1.25-1.8 g protein/kg 71-103 g total protein 20-25 mL/kg 3345-5988 total fluid mLs NUTRITION DIAGNOSIS: * Increased kcal/prot needs R/T wound healing as evidenced by pt admiteed w/ unstageable sacral wound, refer to full wound care eval. * Swallowing difficulty R/T dysphagia, respiratory status as evidenced by pt on T-collar, PEG dep. CURRENT TF:Glucerna 1.2 @ 50ml/hr x 24 hrs ENTERAL NUTRITION RECOMMENDATIONS: Glucerna 1.2 @ 50ml/hr x 24 hrs to provide 1200ml, 1440kcal, 72g, 966ml free water * Maintain current TF * HOB over 30 degrees/ water flush per MD : ADDITIONAL RECOMMENDATIONS: * Calibrated bedscale wt -w/ added p200 mattress + pump * Wound healing: TF @ goal will provide 100% RDI Continue Vit C 250mg QD Add Endy BID via PEG * Monitor lytes closely w/ Lasix, replete as needed * Check updated CBC and BMP (last done 06/02) * Monitor BGs closely, need to adjust insulin (3) Elevated troponin (4) Pneumonia (5) Encounter for generalized patient complaints (6) Decubitus skin ulcer Assessment & Plan: Patient presented on admission with an Unstageable Sacral Pressure injury(L)9.8cm x (W)6.7cm. Base of wound is 80% necrotic ,20% mixed slough ,beefy red. Small amt serous exudate. Mild odor noted. Borders are macerated with surrounding maroon and indurated borders. MASD noted to Mons-pubis outer aspects of R and L buttocks. Perineum and bilat ischial tuberosities. Affected areas mentioned are erythematous, macerated with scattered satellite lesions. Non-Blanchable erythema without induration or fluctuance R and L Heels. Skin assessed under tracheal collar and no evidence of skin breakdown noted. Assessed pt and necrotic base of Sacral wound crosshatched by Md. Unstageable Sacral Pressure Injury (L)9.8cm x (W)7cm. 90% dry necrotic cap ,10% lj borders. Edges are adherent to base of wound. Periwound is pink and dry. No odor or exudate noted. Small external haemorrhoid with small amt bleeding noted. R and L heels are both blanchable. No new skin concerns noted. Wound Tx are effective and continued as ordered . All wound prevention protocols continued as care-planned. Pt has an APM/DANIEL Mattress overlay and is being positioned as per tolerance and within protocols. Tx.Plan: Cleanse Sacral wound with Saline. Apply TheraHoney. Apply Moisture Barrier Paste periwound. Cover with Optifoam Drsg. Change Daily and prn. Apply Moisture Barrier Paste to Mons Pubis, Perineum and buttocks with each Incontinence care. Apply Cavilon Skin Barrier to Both heels and Malleoli. Cover each site with Optifoam Drsg. Change every 7 days and prn. Reposition at least every 2hours or as tolerated. Off-load heels with Pillow. Reposition at least every 2hours or as tolerated. APM/DANIEL mattress overlay. Adrian Gar Jun 07, 2020 12:19
--- NOTE | 2020-06-07 13:37 | Diagnostic Imaging Report ---
Indication: Cough Technique: One view of the chest Comparison: 05/29/2020 Findings: There is now partial visualization of the left hemidiaphragm, may indicate improving pleural fluid or atelectasis at the left lung base. Mild interstitial congestion persists although appears improved. The heart is borderline enlarged. There is tracheostomy again demonstrated. Impression: Partial improvement of previously demonstrated left basilar pleural fluid and/or parenchymal disease Persistent mild interstitial congestion, slightly improved
[2020-06-07] MEDS ORDERED: NS 275ml ONE ×2 (14:09→15:43)
[2020-06-07 15:52] VITALS: BP 140/72
[2020-06-07 20:00] VITALS: BP 147/69
--- NOTE | 2020-06-07 22:48 | Cardiology Progress Note ---
Subjective DATE OF SERVICE: Jun 07, 2020 On T-collar BP range improved Sputum culture A.baumanni Decreasing thin secretions Monitor: Sinus with PAFIb and short runs of aberrancy. Objective Last 24 Hour Vital Signs Date Time Temp Pulse Resp B/P (MAP) Pulse Ox O2 Delivery O2 Flow Rate FiO2 06/07/20 21:52 99 147/69 06/07/20 19:04 98 T-Piece 5.0 28 06/07/20 17:26 140/72 06/07/20 15:52 98.6 78 20 140/72 (94) 100 06/07/20 15:43 82 06/07/20 13:47 98 T-Piece 5.0 28 06/07/20 13:04 78 144/69 06/07/20 12:22 144/69 06/07/20 11:46 78 06/07/20 11:41 98.1 78 20 144/69 (94) 100 06/07/20 09:15 138/69 06/07/20 09:00 Trach Collar 8.0 06/07/20 07:55 98.9 78 20 138/69 (92) 100 06/07/20 07:52 76 06/07/20 06:41 85 154/71 06/07/20 06:40 100 T-Piece 5.0 28 06/07/20 04:28 180/85 06/07/20 04:00 90 06/07/20 04:00 98.9 90 20 180/85 (116) 100 06/07/20 01:31 97 T-Piece 5.0 28 06/07/20 00:00 98.6 84 20 158/80 (106) 100 06/07/20 00:00 84 ROS: no change from my assessment of 05/25/20 - remains unobtainable from patient HEENT: normal ENT inspection, Thick Trach secretions RHYTHM: NSR, PACs LUNGS: diminished breath sounds - left, bilateral rhonchi CARDIAC: normal rate, regular rhythm, normal S1 and S2, arrhythmia ABDOMEN: normal bowel sounds, non tender, soft, G-Tube intact EXTREMITIES: trace edema, other - sacral decub. noncommunicative Laboratory Tests Test 06/07/20 08:30 White Blood Count 16.3 K/UL (4.8-10.8) H Red Blood Count 3.85 M/UL (4.20-5.40) L Hemoglobin 9.4 G/DL (12.0-16.0) L Hematocrit 29.7 % (37.0-47.0) L Mean Corpuscular Volume 77 FL (80-99) L Mean Corpuscular Hemoglobin 24.3 PG (27.0-31.0) L Mean Corpuscular Hemoglobin Concent 31.5 G/DL (32.0-36.0) L Red Cell Distribution Width 15.6 % (11.6-14.8) H Platelet Count 342 K/UL (150-450) Mean Platelet Volume 8.9 FL (6.5-10.1) Neutrophils (%) (Auto) 77.7 % (45.0-75.0) H Lymphocytes (%) (Auto) 11.4 % (20.0-45.0) L Monocytes (%) (Auto) 6.4 % (1.0-10.0) Eosinophils (%) (Auto) 3.3 % (0.0-3.0) H Basophils (%) (Auto) 1.2 % (0.0-2.0) Sodium Level 137 MMOL/L (136-145) Potassium Level 3.9 MMOL/L (3.5-5.1) Chloride Level 100 MMOL/L (98-107) Carbon Dioxide Level 32 MMOL/L (21-32) Anion Gap 5 mmol/L (5-15) Blood Urea Nitrogen 23 mg/dL (7-18) H Creatinine 0.6 MG/DL (0.55-1.30) Estimat Glomerular Filtration Rate > 60 mL/min (>60) Glucose Level 220 MG/DL (74-106) H Calcium Level 9.5 MG/DL (8.5-10.1) Magnesium Level 1.9 MG/DL (1.8-2.4) Total Bilirubin 0.3 MG/DL (0.2-1.0) Aspartate Amino Transf (AST/SGOT) 15 U/L (15-37) Alanine Aminotransferase (ALT/SGPT) 17 U/L (12-78) Alkaline Phosphatase 96 U/L (46-116) Pro-B-Type Natriuretic Peptide 3073 pg/mL (0-125) H Total Protein 7.0 G/DL (6.4-8.2) Albumin 2.4 G/DL (3.4-5.0) L Globulin 4.6 g/dL Albumin/Globulin Ratio 0.5 (1.0-2.7) L Assessment/Plan Assessment/Plan Healthcare associated PNA Left pleural effusion Acute myocardial ischemia with possible NSTE myocardial infarction Sepsis Respiratory failure Hypertension/HHD Parox AFib Conduction system disease with bifasc block Ac/chr diastolic CHF now mostly compensated Low lipid parameters NSVT IRDM with hyperglycemia Hypomagnesemia Resp Rx Antimicrobials; follow-up new sputum culture result quality assurance monitor chassis Maintain current oral diuretic dose and trend BNP; monitor/replace lytes as needed. Full anticoagulation Titrate CV regimen based on clinical parameters - continue current antianginal regimen, including beta pietro; add ACEi. No need for statin Titrate insulin rx Maintain current maintenance diuretic dose. John Heard MD Jun 07, 2020 22:48
[2020-06-08] VITALS: BP 139/69
[2020-06-08] MEDS: NovoLOG Insulin Flexpen SUBQ SCH ×4 (00:35→18:10)
[2020-06-08 04:00] VITALS: BP 144/58
[2020-06-08] MEDS: Metoprolol Tartrate 50mg tab GT SCH ×3 (05:42→21:19)
[2020-06-08 08:37] VITALS: BP 155/72
[2020-06-08] MEDS: Pantoprazole Inj IVP SCH (09:20)
[2020-06-08] MEDS: Ascorbic Acid 500mg tab GT SCH (09:21)
[2020-06-08] MEDS: Eliquis 5mg tablet GT SCH ×2 (09:21→18:16)
[2020-06-08] MEDS: Lisinopril 10mg tab GT SCH (09:21)
[2020-06-08] MEDS: Levemir Flexpen SUBQ SCH ×2 (09:23→21:30)
--- NOTE | 2020-06-08 10:39 | Infectious Diseases Prog Note ---
Assessment/Plan Assessment/Plan antibiotics : none A 1. aspiration pneumonia with acenitobacter s/p rx 2. + blood cultures with coag neg staph likely contaminated 3. leucocytosis 4. diabetes mellitus 5. hypertension 6. CVA 7. dementia P 1. observe off antibiotics 2. will follow up cultures Subjective ROS Limited/Unobtainable: Yes Allergies: Coded Allergies: No Known Allergies (Unverified , 05/15/20) Objective Last 24 Hour Vital Signs Date Time Temp Pulse Resp B/P (MAP) Pulse Ox O2 Delivery O2 Flow Rate FiO2 06/08/20 09:21 155/72 06/08/20 09:20 155/72 06/08/20 09:16 Trach Collar 8.0 06/08/20 08:37 72 06/08/20 08:37 98.8 75 20 155/72 (99) 100 06/08/20 08:14 97 T-Piece 5.0 28 06/08/20 05:42 72 144/58 06/08/20 04:00 99.0 74 20 144/58 (86) 100 06/08/20 04:00 72 06/08/20 01:21 99 T-Piece 5.0 28 06/08/20 00:00 76 06/08/20 00:00 99.1 74 18 139/69 (92) 99 06/07/20 21:52 99 147/69 06/07/20 21:00 Trach Collar 8.0 06/07/20 20:00 79 06/07/20 20:00 99.7 78 19 147/69 (95) 99 06/07/20 19:04 98 T-Piece 5.0 28 06/07/20 17:26 140/72 06/07/20 15:52 98.6 78 20 140/72 (94) 100 06/07/20 15:43 82 06/07/20 13:47 98 T-Piece 5.0 28 06/07/20 13:04 78 144/69 06/07/20 12:22 144/69 06/07/20 11:46 78 06/07/20 11:41 98.1 78 20 144/69 (94) 100 Height (Feet): 5 Height (Inches): 3.00 Weight (Pounds): 157 HEENT: status post trach Respiratory/Chest: lungs clear Cardiovascular: normal rate, regular rhythm, no gallop/murmur Abdomen: soft, non tender, other - GT Extremities: no edema Current Medications Medications (Trade) Dose Ordered Sig/Cayden Route PRN Reason Start Time Stop Time Status Last Admin Dose Admin Acetaminophen (Tylenol) 650 mg Q4H PRN GT Pain 05/26/20 07:45 06/25/20 07:44 06/06/20 12:14 Apixaban (Eliquis) 5 mg BID GT 05/26/20 09:00 08/24/20 08:59 06/08/20 09:21 Ascorbic Acid (Vitamin C) 250 mg DAILY GT 05/28/20 09:00 06/27/20 08:59 06/08/20 09:21 Clonidine HCl (Catapres Tab) 0.1 mg Q4H PRN ORAL for sbp>150 06/03/20 09:00 09/01/20 08:59 06/07/20 04:28 Dextrose (Dextrose 50%) 25 ml Q30M PRN IV Hypoglycemia 05/26/20 07:30 08/24/20 07:29 Dextrose (Dextrose 50%) 50 ml Q30M PRN IV Hypoglycemia 05/26/20 07:30 08/24/20 07:29 Furosemide (Lasix) 20 mg DAILY GT 06/03/20 09:00 07/03/20 08:59 06/08/20 09:20 Insulin Aspart (NovoLOG) Q6HR SUBQ 05/26/20 12:00 08/24/20 11:59 06/08/20 05:47 Insulin Detemir (Levemir) 15 units EVERY 12 HOURS SUBQ 06/07/20 09:00 09/05/20 08:59 06/08/20 09:23 Isosorbide Dinitrate (Isordil) 20 mg THREE TIMES A DAY GT 06/02/20 13:00 07/02/20 12:59 06/08/20 09:20 Lisinopril (ZestriL) 10 mg DAILY GT 06/08/20 09:00 07/08/20 08:59 06/08/20 09:21 Metoprolol Tartrate (Lopressor) 50 mg EVERY 8 HOURS GT 05/28/20 22:00 08/26/20 21:59 06/08/20 05:42 Pantoprazole (Protonix) 40 mg DAILY IVP 05/26/20 09:00 06/25/20 08:59 06/08/20 09:20 Mina Salamanca MD Jun 08, 2020 10:39
[2020-06-08 12:00] VITALS: BP 107/53
--- NOTE | 2020-06-08 14:56 | Surgery Progress Note ---
Surgery Progress Note Subjective Additional Comments no acute events wbc noted exam stable comfortable Objective Last 24 Hour Vital Signs Date Time Temp Pulse Resp B/P (MAP) Pulse Ox O2 Delivery O2 Flow Rate FiO2 06/08/20 12:00 98.1 73 18 107/53 (71) 100 06/08/20 12:00 76 06/08/20 09:21 155/72 06/08/20 09:20 155/72 06/08/20 09:16 Trach Collar 8.0 06/08/20 08:37 98.8 75 20 155/72 (99) 100 06/08/20 08:14 97 T-Piece 5.0 28 06/08/20 08:00 79 06/08/20 05:42 72 144/58 06/08/20 04:00 99.0 74 20 144/58 (86) 100 06/08/20 04:00 72 06/08/20 01:21 99 T-Piece 5.0 28 06/08/20 00:00 76 06/08/20 00:00 99.1 74 18 139/69 (92) 99 06/07/20 21:52 99 147/69 06/07/20 21:00 Trach Collar 8.0 06/07/20 20:00 79 06/07/20 20:00 99.7 78 19 147/69 (95) 99 06/07/20 19:04 98 T-Piece 5.0 28 06/07/20 17:26 140/72 06/07/20 15:52 98.6 78 20 140/72 (94) 100 06/07/20 15:43 82 I&O Intake and Output 06/07/20 06/08/20 19:00 07:00 Intake Total 50 ml 700 ml Output Total 500 ml 800 ml Balance -450 ml -100 ml Free Water 100 ml Tube Feeding 50 ml 600 ml Output Urine Total 500 ml 800 ml # Voids 1 # Bowel Movements 1 2 Dressing: other Wound: other Cardiovascular: RSR Respiratory: decreased breath sounds Abdomen: soft, non-tender, present bowel sounds Extremities: no edema, no cyanosis Laboratory Tests Test 06/07/20 16:51 06/08/20 05:45 POC Whole Blood Glucose 200 MG/DL (74-106) H Pending Plan Problems: (1) Anemia (2) Sepsis Assessment & Plan: 74-year-old female with medical comorbidities present with leukocytosis anemia abnormal labs hypoalbuminemia failure to thrive malnutrition worsening decubitus ulcer admitted further care and management was prior on vancomycin now on IV antibiotics admitted and under monitoring. Full evaluation does not at the bedside and evaluation performed. Trach stable PEG tube stable skin deteriorating per her turgor worsening decubitus ulcer malnutrition continue tube feeds as tolerated continue antibiotics wounds unlikely etiology of patient's sepsis we will monitor and follow with recommendations trend labs thank you for letting participate patient's care improving DAILY ESTIMATED NEEDS: Needs based on Wound, DM/ 57kg abw 25-30 kcals/kg 4471-3534 total kcals 1.25-1.8 g protein/kg 71-103 g total protein 20-25 mL/kg 0347-4014 total fluid mLs NUTRITION DIAGNOSIS: * Increased kcal/prot needs R/T wound healing as evidenced by pt admiteed w/ unstageable sacral wound, refer to full wound care eval. * Swallowing difficulty R/T dysphagia, respiratory status as evidenced by pt on T-collar, PEG dep. CURRENT TF:Glucerna 1.2 @ 50ml/hr x 24 hrs ENTERAL NUTRITION RECOMMENDATIONS: Glucerna 1.2 @ 50ml/hr x 24 hrs to provide 1200ml, 1440kcal, 72g, 966ml free water * Maintain current TF * HOB over 30 degrees/ water flush per MD : ADDITIONAL RECOMMENDATIONS: * Calibrated bedscale wt -w/ added p200 mattress + pump * Wound healing: TF @ goal will provide 100% RDI Continue Vit C 250mg QD Add Endy BID via PEG * Monitor lytes closely w/ Lasix, replete as needed * Check updated CBC and BMP (last done 06/02) * Monitor BGs closely, need to adjust insulin (3) Elevated troponin (4) Pneumonia (5) Encounter for generalized patient complaints (6) Decubitus skin ulcer Assessment & Plan: Patient presented on admission with an Unstageable Sacral Pressure injury(L)9.8cm x (W)6.7cm. Base of wound is 80% necrotic ,20% mixed slough ,beefy red. Small amt serous exudate. Mild odor noted. Borders are macerated with surrounding maroon and indurated borders. MASD noted to Mons-pubis outer aspects of R and L buttocks. Perineum and bilat ischial tuberosities. Affected areas mentioned are erythematous, macerated with scattered satellite lesions. Non-Blanchable erythema without induration or fluctuance R and L Heels. Skin assessed under tracheal collar and no evidence of skin breakdown noted. Assessed pt and necrotic base of Sacral wound crosshatched by . Unstageable Sacral Pressure Injury (L)9.8cm x (W)7cm. 90% dry necrotic cap ,10% lj borders. Edges are adherent to base of wound. Periwound is pink and dry. No odor or exudate noted. Small external haemorrhoid with small amt bleeding noted. R and L heels are both blanchable. No new skin concerns noted. Wound Tx are effective and continued as ordered . All wound prevention protocols continued as care-planned. Pt has an APM/DANIEL Mattress overlay and is being positioned as per tolerance and within protocols. Tx.Plan: Cleanse Sacral wound with Saline. Apply TheraHoney. Apply Moisture Barrier Paste periwound. Cover with Optifoam Drsg. Change Daily and prn. Apply Moisture Barrier Paste to Mons Pubis, Perineum and buttocks with each Incontinence care. Apply Cavilon Skin Barrier to Both heels and Malleoli. Cover each site with Optifoam Drsg. Change every 7 days and prn. Reposition at least every 2hours or as tolerated. Off-load heels with Pillow. Reposition at least every 2hours or as tolerated. APM/DANIEL mattress overlay. Adrian Gar Jun 08, 2020 14:56
[2020-06-08 16:00] VITALS: BP 156/74
--- NOTE | 2020-06-08 17:33 | Pulmonology Progress Note ---
Subjective ROS Limited/Unobtainable: Yes Constitutional: Denies: fever Allergies: Coded Allergies: No Known Allergies (Unverified , 05/15/20) Subjective care noted MDRO wbc noted and now worse ID reviewed Objective Last 24 Hour Vital Signs Date Time Temp Pulse Resp B/P (MAP) Pulse Ox O2 Delivery O2 Flow Rate FiO2 06/08/20 15:24 156/74 06/08/20 15:24 100 156/74 06/08/20 13:29 98 T-Piece 5.0 28 06/08/20 12:00 98.1 73 18 107/53 (71) 100 06/08/20 12:00 76 06/08/20 09:21 155/72 06/08/20 09:20 155/72 06/08/20 09:16 Trach Collar 8.0 06/08/20 08:37 98.8 75 20 155/72 (99) 100 06/08/20 08:14 97 T-Piece 5.0 28 06/08/20 08:00 79 06/08/20 05:42 72 144/58 06/08/20 04:00 99.0 74 20 144/58 (86) 100 06/08/20 04:00 72 06/08/20 01:21 99 T-Piece 5.0 28 06/08/20 00:00 76 06/08/20 00:00 99.1 74 18 139/69 (92) 99 06/07/20 21:52 99 147/69 06/07/20 21:00 Trach Collar 8.0 06/07/20 20:00 79 06/07/20 20:00 99.7 78 19 147/69 (95) 99 06/07/20 19:04 98 T-Piece 5.0 28 Intake and Output 06/07/20 06/08/20 19:00 07:00 Intake Total 50 ml 700 ml Output Total 500 ml 800 ml Balance -450 ml -100 ml Free Water 100 ml Tube Feeding 50 ml 600 ml Output Urine Total 500 ml 800 ml # Voids 1 # Bowel Movements 1 2 Objective WDWN NAD trach reduced breath sounds bilaterally without rhonchi [id number] without MRG NABS nontender GT no CCE withdrawn Laboratory Tests 06/08/20 05:45: POC Whole Blood Glucose [Pending] Current Medications Medications (Trade) Dose Ordered Sig/Cayden Route PRN Reason Start Time Stop Time Status Last Admin Dose Admin Acetaminophen (Tylenol) 650 mg Q4H PRN GT Pain 05/26/20 07:45 06/25/20 07:44 06/06/20 12:14 Apixaban (Eliquis) 5 mg BID GT 05/26/20 09:00 08/24/20 08:59 06/08/20 09:21 Ascorbic Acid (Vitamin C) 250 mg DAILY GT 05/28/20 09:00 06/27/20 08:59 06/08/20 09:21 Clonidine HCl (Catapres Tab) 0.1 mg Q4H PRN ORAL for sbp>150 06/03/20 09:00 09/01/20 08:59 06/07/20 04:28 Dextrose (Dextrose 50%) 25 ml Q30M PRN IV Hypoglycemia 05/26/20 07:30 08/24/20 07:29 Dextrose (Dextrose 50%) 50 ml Q30M PRN IV Hypoglycemia 05/26/20 07:30 08/24/20 07:29 Furosemide (Lasix) 20 mg DAILY GT 06/03/20 09:00 07/03/20 08:59 06/08/20 09:20 Insulin Aspart (NovoLOG) Q6HR SUBQ 05/26/20 12:00 08/24/20 11:59 06/08/20 12:29 Insulin Detemir (Levemir) 15 units EVERY 12 HOURS SUBQ 06/07/20 09:00 09/05/20 08:59 06/08/20 09:23 Isosorbide Dinitrate (Isordil) 20 mg THREE TIMES A DAY GT 06/02/20 13:00 07/02/20 12:59 06/08/20 15:24 Lisinopril (ZestriL) 10 mg DAILY GT 06/08/20 09:00 07/08/20 08:59 06/08/20 09:21 Metoprolol Tartrate (Lopressor) 50 mg EVERY 8 HOURS GT 05/28/20 22:00 08/26/20 21:59 06/08/20 15:24 Pantoprazole (Protonix) 40 mg DAILY IVP 05/26/20 09:00 06/25/20 08:59 06/08/20 09:20 Assessment/Plan Assessment/Plan IMPRESSION leukocytosis sepsis Afib, chronic encephalopathy trach respiratory failure elevated troponin anemia bacteremia- staph fevers better hypertension PLAN off antibiotics prn clonidine isolation ID follow up and recommendations and clearance dc to snf if wbc improves respiratory care snf meds noted suction monitor cultures eliquis as is card follow up impression, plan, and exam edited and reviewed in detail care discussed with Fernie Ledezma MD Jun 08, 2020 17:33
[2020-06-08 20:00] VITALS: BP 138/65
--- NOTE | 2020-06-08 23:42 | Cardiology Progress Note ---
Subjective DATE OF SERVICE: Jun 08, 2020 On T-collar BP range improved Sputum culture A.baumanni Decreasing thin secretions, but WBC rising Monitor: Sinus with PAFIb and short runs of aberrancy. Objective Last 24 Hour Vital Signs Date Time Temp Pulse Resp B/P (MAP) Pulse Ox O2 Delivery O2 Flow Rate FiO2 06/08/20 21:19 87 138/65 06/08/20 20:00 98 T-Piece 5.0 28 06/08/20 18:00 156/74 06/08/20 16:00 98.1 83 20 156/74 (101) 99 06/08/20 16:00 100 06/08/20 15:24 156/74 06/08/20 15:24 100 156/74 06/08/20 13:29 98 T-Piece 5.0 28 06/08/20 12:00 98.1 73 18 107/53 (71) 100 06/08/20 12:00 76 06/08/20 09:21 155/72 06/08/20 09:20 155/72 06/08/20 09:16 Trach Collar 8.0 06/08/20 08:37 98.8 75 20 155/72 (99) 100 06/08/20 08:14 97 T-Piece 5.0 28 06/08/20 08:00 79 06/08/20 05:42 72 144/58 06/08/20 04:00 99.0 74 20 144/58 (86) 100 06/08/20 04:00 72 06/08/20 01:21 99 T-Piece 5.0 28 06/08/20 00:00 76 06/08/20 00:00 99.1 74 18 139/69 (92) 99 ROS: no change from my assessment of 05/25/20 - remains unobtainable from patient HEENT: normal ENT inspection, Thick Trach secretions RHYTHM: NSR, PACs LUNGS: diminished breath sounds - left, bilateral rhonchi CARDIAC: normal rate, regular rhythm, normal S1 and S2, arrhythmia ABDOMEN: normal bowel sounds, non tender, soft, G-Tube intact EXTREMITIES: trace edema, other - sacral decub. noncommunicative Laboratory Tests Test 06/08/20 05:45 06/08/20 21:20 POC Whole Blood Glucose Pending Pending Assessment/Plan Assessment/Plan Healthcare associated PNA Left pleural effusion Acute myocardial ischemia with possible NSTE myocardial infarction Sepsis Respiratory failure Hypertension/HHD Parox AFib Conduction system disease with bifasc block Ac/chr diastolic CHF now mostly compensated Low lipid parameters NSVT IRDM with hyperglycemia Hypomagnesemia Resp Rx Antimicrobials; follow-up new sputum culture result media monitor Maintain current maintenance diuretic dose and trend BNP; monitor/replace lytes as needed. Full anticoagulation Titrate CV regimen based on clinical parameters - continue current antianginal regimen, including beta pietro; ACEi added. No need for statin Titrate insulin rx further John Heard MD Jun 08, 2020 23:42
[2020-06-09] VITALS: BP 103/70
[2020-06-09] MEDS: NovoLOG Insulin Flexpen SUBQ SCH ×5 (00:24→23:59)
[2020-06-09 04:00] VITALS: BP 157/72
[2020-06-09] MEDS: Metoprolol Tartrate 50mg tab GT SCH ×3 (06:36→20:53)
[2020-06-09 06:49] LABS: EOSINOPHILS % (AUTO) 2.4 % (0.0-3.0); HEMATOCRIT 32.9 % (37.0-47.0); HEMOGLOBIN 10.3 G/DL (12.0-16.0); LYMPHOCYTES % (AUTO) 10.3 % (20.0-45.0); MEAN CORPUSCULAR VOLUME 77 FL (80-99); MONOCYTES % (AUTO) 6.9 % (1.0-10.0); NEUTROPHILS % (AUTO) 79.4 % (45.0-75.0); PLATELET COUNT 391 K/UL (150-450); RED CELL DISTRIBUTION WIDTH 15.6 % (11.6-14.8); WHITE BLOOD COUNT 14.8 K/UL (4.8-10.8)
[2020-06-09 07:11] LABS: ANION GAP 8 mmol/L (5-15); BLOOD UREA NITROGEN 20 mg/dL (7-18); CALCIUM 9.7 MG/DL (8.5-10.1); CARBON DIOXIDE 31 MMOL/L (21-32); CHLORIDE 98 MMOL/L (98-107); CREATININE 0.7 MG/DL (0.55-1.30); POTASSIUM 4.5 MMOL/L (3.5-5.1); SODIUM 137 MMOL/L (136-145)
--- NOTE | 2020-06-09 07:49 | Pulmonology Progress Note ---
Subjective ROS Limited/Unobtainable: Yes Constitutional: Denies: fever Allergies: Coded Allergies: No Known Allergies (Unverified , 05/15/20) Subjective care noted MDRO wbc noted and now worse ID reviewed Objective Last 24 Hour Vital Signs Date Time Temp Pulse Resp B/P (MAP) Pulse Ox O2 Delivery O2 Flow Rate FiO2 06/09/20 06:36 86 157/72 06/09/20 04:00 98.2 19 157/72 (100) 94 06/09/20 04:00 86 06/09/20 01:03 97 T-Piece 5.0 28 06/09/20 00:00 84 06/09/20 00:00 98.1 83 17 103/70 (81) 99 06/08/20 21:19 87 138/65 06/08/20 21:00 Trach Collar 8.0 06/08/20 20:00 79 06/08/20 20:00 99.0 84 16 138/65 (89) 99 06/08/20 20:00 98 T-Piece 5.0 28 06/08/20 18:00 156/74 06/08/20 16:00 98.1 83 20 156/74 (101) 99 06/08/20 16:00 100 06/08/20 15:24 156/74 06/08/20 15:24 100 156/74 06/08/20 13:29 98 T-Piece 5.0 28 06/08/20 12:00 98.1 73 18 107/53 (71) 100 06/08/20 12:00 76 06/08/20 09:21 155/72 06/08/20 09:20 155/72 06/08/20 09:16 Trach Collar 8.0 06/08/20 08:37 98.8 75 20 155/72 (99) 100 06/08/20 08:14 97 T-Piece 5.0 28 06/08/20 08:00 79 Intake and Output 06/08/20 06/09/20 19:00 07:00 Intake Total 50 ml 760 ml Output Total 750 ml 600 ml Balance -700 ml 160 ml Free Water 160 ml Tube Feeding 50 ml 600 ml Output Urine Total 750 ml 600 ml # Bowel Movements 1 Objective WDWN NAD trach reduced breath sounds bilaterally without rhonchi [id number] without MRG NABS nontender GT no CCE withdrawn Laboratory Tests 06/08/20 21:20: POC Whole Blood Glucose [Pending] 06/09/20 00:19: POC Whole Blood Glucose [Pending] 06/09/20 06:20: White Blood Count 14.8H, Red Blood Count 4.30, Hemoglobin 10.3L, Hematocrit 32.9L, Mean Corpuscular Volume 77L, Mean Corpuscular Hemoglobin 23.9L, Mean Corpuscular Hemoglobin Concent 31.2L, Red Cell Distribution Width 15.6H, Platelet Count 391, Mean Platelet Volume 9.5, Neutrophils (%) (Auto) 79.4H, Lymphocytes (%) (Auto) 10.3L, Monocytes (%) (Auto) 6.9, Eosinophils (%) (Auto) 2.4, Basophils (%) (Auto) 1.0, Sodium Level 137, Potassium Level 4.5, Chloride Level 98, Carbon Dioxide Level 31, Anion Gap 8, Blood Urea Nitrogen 20H, Creatinine 0.7, Estimat Glomerular Filtration Rate > 60, Glucose Level 249H, Calcium Level 9.7 Current Medications Medications (Trade) Dose Ordered Sig/Cayden Route PRN Reason Start Time Stop Time Status Last Admin Dose Admin Acetaminophen (Tylenol) 650 mg Q4H PRN GT Pain 05/26/20 07:45 06/25/20 07:44 06/06/20 12:14 Apixaban (Eliquis) 5 mg BID GT 05/26/20 09:00 08/24/20 08:59 06/08/20 18:16 Ascorbic Acid (Vitamin C) 250 mg DAILY GT 05/28/20 09:00 06/27/20 08:59 06/08/20 09:21 Clonidine HCl (Catapres Tab) 0.1 mg Q4H PRN ORAL for sbp>150 06/03/20 09:00 09/01/20 08:59 06/07/20 04:28 Dextrose (Dextrose 50%) 25 ml Q30M PRN IV Hypoglycemia 05/26/20 07:30 08/24/20 07:29 Dextrose (Dextrose 50%) 50 ml Q30M PRN IV Hypoglycemia 05/26/20 07:30 08/24/20 07:29 Furosemide (Lasix) 20 mg DAILY GT 06/03/20 09:00 07/03/20 08:59 06/08/20 09:20 Insulin Aspart (NovoLOG) Q6HR SUBQ 05/26/20 12:00 08/24/20 11:59 06/09/20 06:39 Insulin Detemir (Levemir) 18 units EVERY 12 HOURS SUBQ 06/09/20 09:00 09/07/20 08:59 Isosorbide Dinitrate (Isordil) 20 mg THREE TIMES A DAY GT 06/02/20 13:00 07/02/20 12:59 06/08/20 18:00 Lisinopril (ZestriL) 10 mg DAILY GT 06/08/20 09:00 07/08/20 08:59 06/08/20 09:21 Metoprolol Tartrate (Lopressor) 50 mg EVERY 8 HOURS GT 05/28/20 22:00 08/26/20 21:59 06/09/20 06:36 Pantoprazole (Protonix) 40 mg DAILY IVP 05/26/20 09:00 06/25/20 08:59 06/08/20 09:20 Assessment/Plan Assessment/Plan IMPRESSION leukocytosis sepsis Afib, chronic encephalopathy trach respiratory failure elevated troponin anemia bacteremia- staph fevers better hypertension PLAN off antibiotics prn clonidine isolation ID follow up and recommendations and clearance dc to snf if wbc continues to improve respiratory care snf meds noted suction monitor cultures eliquis as is card follow up impression, plan, and exam edited and reviewed in detail care discussed with Fernie Ledezma MD Jun 09, 2020 07:49
[2020-06-09 08:00] VITALS: BP 160/78
[2020-06-09] MEDS: Eliquis 5mg tablet GT SCH ×2 (09:53→17:29)
[2020-06-09] MEDS: Lisinopril 10mg tab GT SCH (09:53)
[2020-06-09] MEDS: Ascorbic Acid 500mg tab GT SCH (09:54)
[2020-06-09] MEDS: Pantoprazole Inj IVP SCH (09:54)
[2020-06-09] MEDS: Levemir Flexpen SUBQ SCH ×2 (10:11→20:54)
--- NOTE | 2020-06-09 10:20 | Surgery Progress Note ---
Surgery Progress Note Subjective Additional Comments leukocytosis noted exam stable no acute events HD stable Objective Last 24 Hour Vital Signs Date Time Temp Pulse Resp B/P (MAP) Pulse Ox O2 Delivery O2 Flow Rate FiO2 06/09/20 09:54 160/78 06/09/20 09:53 160/78 06/09/20 08:00 98.8 79 20 160/78 (105) 100 06/09/20 06:45 98 T-Piece 5.0 28 06/09/20 06:36 86 157/72 06/09/20 04:00 98.2 19 157/72 (100) 94 06/09/20 04:00 86 06/09/20 01:03 97 T-Piece 5.0 28 06/09/20 00:00 84 06/09/20 00:00 98.1 83 17 103/70 (81) 99 06/08/20 21:19 87 138/65 06/08/20 21:00 Trach Collar 8.0 06/08/20 20:00 79 06/08/20 20:00 99.0 84 16 138/65 (89) 99 06/08/20 20:00 98 T-Piece 5.0 28 06/08/20 18:00 156/74 06/08/20 16:00 98.1 83 20 156/74 (101) 99 06/08/20 16:00 100 06/08/20 15:24 156/74 06/08/20 15:24 100 156/74 06/08/20 13:29 98 T-Piece 5.0 28 06/08/20 12:00 98.1 73 18 107/53 (71) 100 06/08/20 12:00 76 I&O Intake and Output 06/08/20 06/09/20 19:00 07:00 Intake Total 50 ml 760 ml Output Total 750 ml 600 ml Balance -700 ml 160 ml Free Water 160 ml Tube Feeding 50 ml 600 ml Output Urine Total 750 ml 600 ml # Bowel Movements 1 Dressing: other Wound: other Cardiovascular: RSR Respiratory: decreased breath sounds Abdomen: soft, non-tender, present bowel sounds Extremities: no tenderness, no cyanosis Laboratory Tests Test 06/08/20 21:20 06/09/20 00:19 06/09/20 06:20 POC Whole Blood Glucose Pending Pending White Blood Count 14.8 K/UL (4.8-10.8) H Red Blood Count 4.30 M/UL (4.20-5.40) Hemoglobin 10.3 G/DL (12.0-16.0) L Hematocrit 32.9 % (37.0-47.0) L Mean Corpuscular Volume 77 FL (80-99) L Mean Corpuscular Hemoglobin 23.9 PG (27.0-31.0) L Mean Corpuscular Hemoglobin Concent 31.2 G/DL (32.0-36.0) L Red Cell Distribution Width 15.6 % (11.6-14.8) H Platelet Count 391 K/UL (150-450) Mean Platelet Volume 9.5 FL (6.5-10.1) Neutrophils (%) (Auto) 79.4 % (45.0-75.0) H Lymphocytes (%) (Auto) 10.3 % (20.0-45.0) L Monocytes (%) (Auto) 6.9 % (1.0-10.0) Eosinophils (%) (Auto) 2.4 % (0.0-3.0) Basophils (%) (Auto) 1.0 % (0.0-2.0) Sodium Level 137 MMOL/L (136-145) Potassium Level 4.5 MMOL/L (3.5-5.1) Chloride Level 98 MMOL/L (98-107) Carbon Dioxide Level 31 MMOL/L (21-32) Anion Gap 8 mmol/L (5-15) Blood Urea Nitrogen 20 mg/dL (7-18) H Creatinine 0.7 MG/DL (0.55-1.30) Estimat Glomerular Filtration Rate > 60 mL/min (>60) Glucose Level 249 MG/DL (74-106) H Calcium Level 9.7 MG/DL (8.5-10.1) Plan Problems: (1) Anemia (2) Sepsis Assessment & Plan: 74-year-old female with medical comorbidities present with leukocytosis anemia abnormal labs hypoalbuminemia failure to thrive malnutrition worsening decubitus ulcer admitted further care and management was prior on vancomycin now on IV antibiotics admitted and under monitoring. Full evaluation does not at the bedside and evaluation performed. Trach stable PEG tube stable skin deteriorating per her turgor worsening decubitus ulcer malnutrition continue tube feeds as tolerated continue antibiotics wounds unlikely etiology of patient's sepsis we will monitor and follow with recommendations trend labs thank you for letting participate patient's care improving DAILY ESTIMATED NEEDS: Needs based on Wound, DM/ 57kg abw 25-30 kcals/kg 8998-9976 total kcals 1.25-1.8 g protein/kg 71-103 g total protein 20-25 mL/kg 9681-2645 total fluid mLs NUTRITION DIAGNOSIS: * Increased kcal/prot needs R/T wound healing as evidenced by pt admiteed w/ unstageable sacral wound, refer to full wound care eval. * Swallowing difficulty R/T dysphagia, respiratory status as evidenced by pt on T-collar, PEG dep. CURRENT TF:Glucerna 1.2 @ 50ml/hr x 24 hrs ENTERAL NUTRITION RECOMMENDATIONS: Glucerna 1.2 @ 50ml/hr x 24 hrs to provide 1200ml, 1440kcal, 72g, 966ml free water * Maintain current TF * HOB over 30 degrees/ water flush per MD : ADDITIONAL RECOMMENDATIONS: * Calibrated bedscale wt -w/ added p200 mattress + pump * Wound healing: TF @ goal will provide 100% RDI Continue Vit C 250mg QD Add Endy BID via PEG * Monitor lytes closely w/ Lasix, replete as needed * Check updated CBC and BMP (last done 06/02) * Monitor BGs closely, need to adjust insulin (3) Elevated troponin (4) Pneumonia (5) Encounter for generalized patient complaints (6) Decubitus skin ulcer Assessment & Plan: Patient presented on admission with an Unstageable Sacral Pressure injury(L)9.8cm x (W)6.7cm. Base of wound is 80% necrotic ,20% mixed slough ,beefy red. Small amt serous exudate. Mild odor noted. Borders are macerated with surrounding maroon and indurated borders. MASD noted to Mons-pubis outer aspects of R and L buttocks. Perineum and bilat ischial tuberosities. Affected areas mentioned are erythematous, macerated with scattered satellite lesions. Non-Blanchable erythema without induration or fluctuance R and L Heels. Skin assessed under tracheal collar and no evidence of skin breakdown noted. Assessed pt and necrotic base of Sacral wound crosshatched by Md. Unstageable Sacral Pressure Injury (L)9.8cm x (W)7cm. 90% dry necrotic cap ,10% lj borders. Edges are adherent to base of wound. Periwound is pink and dry. No odor or exudate noted. Small external haemorrhoid with small amt bleeding noted. R and L heels are both blanchable. No new skin concerns noted. Wound Tx are effective and continued as ordered . All wound prevention protocols continued as care-planned. Pt has an APM/DANIEL Mattress overlay and is being positioned as per tolerance and within protocols. Tx.Plan: Cleanse Sacral wound with Saline. Apply TheraHoney. Apply Moisture Barrier Paste periwound. Cover with Optifoam Drsg. Change Daily and prn. Apply Moisture Barrier Paste to Mons Pubis, Perineum and buttocks with each Incontinence care. Apply Cavilon Skin Barrier to Both heels and Malleoli. Cover each site with Optifoam Drsg. Change every 7 days and prn. Reposition at least every 2hours or as tolerated. Off-load heels with Pillow. Reposition at least every 2hours or as tolerated. APM/DANIEL mattress overlay. Adrian Gar Jun 09, 2020 10:20
[2020-06-09 12:00] VITALS: BP 151/81
--- NOTE | 2020-06-09 13:09 | Infectious Diseases Prog Note ---
Assessment/Plan Assessment/Plan A: 1. sepsis. 2. Acinetobacter pneumonia treated 3. Leukocytosis 4. Diabetes. 5. Hypertension. 6. CVA. 7. Dementia. 8. COVID-19 test was negative. 9. Positive blood cultures likely contamination PLAN: 1. Observe off antibiotic Subjective ROS Limited/Unobtainable: Yes Constitutional: Denies: fever Allergies: Coded Allergies: No Known Allergies (Unverified , 05/15/20) Objective Last 24 Hour Vital Signs Date Time Temp Pulse Resp B/P (MAP) Pulse Ox O2 Delivery O2 Flow Rate FiO2 06/09/20 12:50 97 T-Piece 5.0 28 06/09/20 12:00 96.7 67 19 151/81 (104) 99 06/09/20 09:54 160/78 06/09/20 09:53 160/78 06/09/20 09:00 Trach Collar 8.0 06/09/20 08:00 98.8 79 20 160/78 (105) 100 06/09/20 07:45 80 06/09/20 06:45 98 T-Piece 5.0 28 06/09/20 06:36 86 157/72 06/09/20 04:00 98.2 19 157/72 (100) 94 06/09/20 04:00 86 06/09/20 01:03 97 T-Piece 5.0 28 06/09/20 00:00 84 06/09/20 00:00 98.1 83 17 103/70 (81) 99 06/08/20 21:19 87 138/65 06/08/20 21:00 Trach Collar 8.0 06/08/20 20:00 79 06/08/20 20:00 99.0 84 16 138/65 (89) 99 06/08/20 20:00 98 T-Piece 5.0 28 06/08/20 18:00 156/74 06/08/20 16:00 98.1 83 20 156/74 (101) 99 06/08/20 16:00 100 06/08/20 15:24 156/74 06/08/20 15:24 100 156/74 06/08/20 13:29 98 T-Piece 5.0 28 Height (Feet): 5 Height (Inches): 3.00 Weight (Pounds): 157 General Appearance: no acute distress HEENT: status post trach Respiratory/Chest: lungs clear, other - on T bar Cardiovascular: normal rate Abdomen: soft, non tender, other - GT feeding Extremities: no edema Neurologic/Psychiatric: unresponsiveness, aphasia Laboratory Tests Test 06/08/20 21:20 06/09/20 00:19 06/09/20 06:20 06/09/20 11:40 POC Whole Blood Glucose Pending Pending 206 MG/DL (74-106) H White Blood Count 14.8 K/UL (4.8-10.8) H Red Blood Count 4.30 M/UL (4.20-5.40) Hemoglobin 10.3 G/DL (12.0-16.0) L Hematocrit 32.9 % (37.0-47.0) L Mean Corpuscular Volume 77 FL (80-99) L Mean Corpuscular Hemoglobin 23.9 PG (27.0-31.0) L Mean Corpuscular Hemoglobin Concent 31.2 G/DL (32.0-36.0) L Red Cell Distribution Width 15.6 % (11.6-14.8) H Platelet Count 391 K/UL (150-450) Mean Platelet Volume 9.5 FL (6.5-10.1) Neutrophils (%) (Auto) 79.4 % (45.0-75.0) H Lymphocytes (%) (Auto) 10.3 % (20.0-45.0) L Monocytes (%) (Auto) 6.9 % (1.0-10.0) Eosinophils (%) (Auto) 2.4 % (0.0-3.0) Basophils (%) (Auto) 1.0 % (0.0-2.0) Sodium Level 137 MMOL/L (136-145) Potassium Level 4.5 MMOL/L (3.5-5.1) Chloride Level 98 MMOL/L (98-107) Carbon Dioxide Level 31 MMOL/L (21-32) Anion Gap 8 mmol/L (5-15) Blood Urea Nitrogen 20 mg/dL (7-18) H Creatinine 0.7 MG/DL (0.55-1.30) Estimat Glomerular Filtration Rate > 60 mL/min (>60) Glucose Level 249 MG/DL (74-106) H Calcium Level 9.7 MG/DL (8.5-10.1) Current Medications Medications (Trade) Dose Ordered Sig/Cayden Route PRN Reason Start Time Stop Time Status Last Admin Dose Admin Acetaminophen (Tylenol) 650 mg Q4H PRN GT Pain 05/26/20 07:45 06/25/20 07:44 06/06/20 12:14 Apixaban (Eliquis) 5 mg BID GT 05/26/20 09:00 08/24/20 08:59 06/09/20 09:53 Ascorbic Acid (Vitamin C) 250 mg DAILY GT 05/28/20 09:00 06/27/20 08:59 06/09/20 09:54 Clonidine HCl (Catapres Tab) 0.1 mg Q4H PRN ORAL for sbp>150 06/03/20 09:00 09/01/20 08:59 06/07/20 04:28 Dextrose (Dextrose 50%) 25 ml Q30M PRN IV Hypoglycemia 05/26/20 07:30 08/24/20 07:29 Dextrose (Dextrose 50%) 50 ml Q30M PRN IV Hypoglycemia 05/26/20 07:30 08/24/20 07:29 Furosemide (Lasix) 20 mg DAILY GT 06/03/20 09:00 07/03/20 08:59 06/09/20 09:54 Insulin Aspart (NovoLOG) Q6HR SUBQ 05/26/20 12:00 08/24/20 11:59 06/09/20 12:20 Insulin Detemir (Levemir) 18 units EVERY 12 HOURS SUBQ 06/09/20 09:00 09/07/20 08:59 06/09/20 10:11 Isosorbide Dinitrate (Isordil) 20 mg THREE TIMES A DAY GT 06/02/20 13:00 07/02/20 12:59 06/09/20 09:54 Lisinopril (ZestriL) 10 mg DAILY GT 06/08/20 09:00 07/08/20 08:59 06/09/20 09:53 Metoprolol Tartrate (Lopressor) 50 mg EVERY 8 HOURS GT 05/28/20 22:00 08/26/20 21:59 06/09/20 06:36 Pantoprazole (Protonix) 40 mg DAILY IVP 05/26/20 09:00 9/26/20 08:59 06/09/20 09:54 Colby Rock MD Jun 09, 2020 13:09
[2020-06-09] MEDS ORDERED: Omnipaque-300 100ml vial INJ ONE (14:15)
[2020-06-09 16:00] VITALS: BP 135/59
[2020-06-09 20:00] VITALS: BP 129/52
[2020-06-10] VITALS: BP 147/71
[2020-06-10] MEDS ORDERED: Omnipaque-300 100ml vial INJ PRN
--- NOTE | 2020-06-10 01:39 | Cardiology Progress Note ---
Subjective DATE OF SERVICE: Jun 09, 2020 On T-collar BP range improved Sputum culture A.baumanni Monitor: Sinus with PAFIb and short runs of aberrancy. Objective Last 24 Hour Vital Signs Date Time Temp Pulse Resp B/P (MAP) Pulse Ox O2 Delivery O2 Flow Rate FiO2 06/10/20 00:27 81 06/10/20 00:00 99.5 87 18 147/71 (96) 100 06/09/20 21:00 Trach Collar 8.0 06/09/20 20:53 85 127/60 06/09/20 20:00 98.8 85 20 129/52 (77) 99 06/09/20 20:00 99 T-Piece 5.0 28 06/09/20 20:00 82 06/09/20 17:29 135/59 06/09/20 16:00 97.9 74 20 135/59 (84) 97 06/09/20 15:56 80 06/09/20 13:17 151/81 06/09/20 13:17 67 151/81 06/09/20 12:50 97 T-Piece 5.0 28 06/09/20 12:00 96.7 67 19 151/81 (104) 99 06/09/20 11:34 69 06/09/20 09:54 160/78 06/09/20 09:53 160/78 06/09/20 09:00 Trach Collar 8.0 06/09/20 08:00 98.8 79 20 160/78 (105) 100 06/09/20 07:45 80 06/09/20 06:45 98 T-Piece 5.0 28 06/09/20 06:36 86 157/72 06/09/20 04:00 98.2 19 157/72 (100) 94 06/09/20 04:00 86 ROS: no change from my assessment of 05/25/20 - remains unobtainable from patient HEENT: normal ENT inspection, Thick Trach secretions RHYTHM: NSR, PACs LUNGS: diminished breath sounds - left, bilateral rhonchi CARDIAC: normal rate, regular rhythm, normal S1 and S2, arrhythmia ABDOMEN: normal bowel sounds, non tender, soft, G-Tube intact EXTREMITIES: trace edema, other - sacral decub. noncommunicative Laboratory Tests Test 06/09/20 06:20 06/09/20 11:40 06/09/20 23:51 White Blood Count 14.8 K/UL (4.8-10.8) H Red Blood Count 4.30 M/UL (4.20-5.40) Hemoglobin 10.3 G/DL (12.0-16.0) L Hematocrit 32.9 % (37.0-47.0) L Mean Corpuscular Volume 77 FL (80-99) L Mean Corpuscular Hemoglobin 23.9 PG (27.0-31.0) L Mean Corpuscular Hemoglobin Concent 31.2 G/DL (32.0-36.0) L Red Cell Distribution Width 15.6 % (11.6-14.8) H Platelet Count 391 K/UL (150-450) Mean Platelet Volume 9.5 FL (6.5-10.1) Neutrophils (%) (Auto) 79.4 % (45.0-75.0) H Lymphocytes (%) (Auto) 10.3 % (20.0-45.0) L Monocytes (%) (Auto) 6.9 % (1.0-10.0) Eosinophils (%) (Auto) 2.4 % (0.0-3.0) Basophils (%) (Auto) 1.0 % (0.0-2.0) Sodium Level 137 MMOL/L (136-145) Potassium Level 4.5 MMOL/L (3.5-5.1) Chloride Level 98 MMOL/L (98-107) Carbon Dioxide Level 31 MMOL/L (21-32) Anion Gap 8 mmol/L (5-15) Blood Urea Nitrogen 20 mg/dL (7-18) H Creatinine 0.7 MG/DL (0.55-1.30) Estimat Glomerular Filtration Rate > 60 mL/min (>60) Glucose Level 249 MG/DL (74-106) H Calcium Level 9.7 MG/DL (8.5-10.1) POC Whole Blood Glucose 206 MG/DL (74-106) H 235 MG/DL (74-106) H Assessment/Plan Assessment/Plan Healthcare associated PNA Left pleural effusion Acute myocardial ischemia with possible NSTE myocardial infarction Sepsis Respiratory failure Hypertension/HHD Parox AFib Conduction system disease with bifasc block Ac/chr diastolic CHF now mostly compensated Low lipid parameters NSVT IRDM with hyperglycemia Hypomagnesemia Contaminant in positive blood cultures Resp Rx Off antibiotics per ID senior specialist Maintain current maintenance diuretic dose and trend BNP; monitor/replace lytes as needed. Full anticoagulation Titrate CV regimen based on clinical parameters - continue current antianginal regimen, including beta pietro; ACEi added - to be titrated. No need for statin Titrate insulin rx further John Heard MD Jun 10, 2020 01:39
[2020-06-10 04:00] VITALS: BP 144/65
[2020-06-10] MEDS: Metoprolol Tartrate 50mg tab GT SCH ×3 (06:06→21:09)
[2020-06-10] MEDS: NovoLOG Insulin Flexpen SUBQ SCH ×3 (06:08→17:27)
[2020-06-10 08:00] VITALS: BP 132/63
--- NOTE | 2020-06-10 08:25 | Pulmonology Progress Note ---
Subjective ROS Limited/Unobtainable: Yes Constitutional: Denies: fever Allergies: Coded Allergies: No Known Allergies (Unverified , 05/15/20) Subjective care noted MDRO- treated wbc noted and still elevated ID reviewed Objective Last 24 Hour Vital Signs Date Time Temp Pulse Resp B/P (MAP) Pulse Ox O2 Delivery O2 Flow Rate FiO2 06/10/20 07:49 97 T-Piece 5.0 28 06/10/20 06:06 81 144/65 06/10/20 04:00 98.1 82 18 144/65 (91) 99 06/10/20 04:00 81 06/10/20 01:30 98 T-Piece 5.0 28 06/10/20 00:27 81 06/10/20 00:00 99.5 87 18 147/71 (96) 100 06/09/20 21:00 Trach Collar 8.0 06/09/20 20:53 85 127/60 06/09/20 20:00 98.8 85 20 129/52 (77) 99 06/09/20 20:00 99 T-Piece 5.0 28 06/09/20 20:00 82 06/09/20 17:29 135/59 06/09/20 16:00 97.9 74 20 135/59 (84) 97 06/09/20 15:56 80 06/09/20 13:17 151/81 06/09/20 13:17 67 151/81 06/09/20 12:50 97 T-Piece 5.0 28 06/09/20 12:00 96.7 67 19 151/81 (104) 99 06/09/20 11:34 69 06/09/20 09:54 160/78 06/09/20 09:53 160/78 06/09/20 09:00 Trach Collar 8.0 Intake and Output 06/09/20 06/10/20 19:00 07:00 Intake Total 600 ml 370 ml Output Total 700 ml 600 ml Balance -100 ml -230 ml Free Water 120 ml Tube Feeding 600 ml 250 ml Output Urine Total 700 ml 600 ml # Voids 1 # Bowel Movements 2 Objective WDWN NAD trach reduced breath sounds bilaterally without rhonchi [id number] without MRG NABS nontender GT no CCE withdrawn Laboratory Tests 06/09/20 11:40: POC Whole Blood Glucose 206H 06/09/20 23:51: POC Whole Blood Glucose 235H Current Medications Medications (Trade) Dose Ordered Sig/Cayden Route PRN Reason Start Time Stop Time Status Last Admin Dose Admin Acetaminophen (Tylenol) 650 mg Q4H PRN GT Pain 05/26/20 07:45 06/25/20 07:44 06/06/20 12:14 Apixaban (Eliquis) 5 mg BID GT 05/26/20 09:00 08/24/20 08:59 06/09/20 17:29 Ascorbic Acid (Vitamin C) 250 mg DAILY GT 05/28/20 09:00 06/27/20 08:59 06/09/20 09:54 Barium Sulfate (Readi-Cat 2) 450 ml NOW PRN ORAL Radiology Procedure 06/09/20 14:15 06/11/20 14:10 Clonidine HCl (Catapres Tab) 0.1 mg Q4H PRN ORAL for sbp>150 06/03/20 09:00 09/01/20 08:59 06/07/20 04:28 Dextrose (Dextrose 50%) 25 ml Q30M PRN IV Hypoglycemia 05/26/20 07:30 08/24/20 07:29 Dextrose (Dextrose 50%) 50 ml Q30M PRN IV Hypoglycemia 05/26/20 07:30 08/24/20 07:29 Furosemide (Lasix) 20 mg DAILY GT 06/03/20 09:00 07/03/20 08:59 06/09/20 09:54 Insulin Aspart (NovoLOG) Q6HR SUBQ 05/26/20 12:00 08/24/20 11:59 06/10/20 06:08 Insulin Detemir (Levemir) 18 units EVERY 12 HOURS SUBQ 06/09/20 09:00 09/07/20 08:59 06/09/20 20:54 Iohexol (OMNIPAQUE-300 100ml) 100 ml ONCE [address]N INJ CT SCAN 06/10/20 00:00 06/10/20 23:59 Isosorbide Dinitrate (Isordil) 20 mg THREE TIMES A DAY GT 06/02/20 13:00 07/02/20 12:59 06/09/20 17:29 Lisinopril (ZestriL) 10 mg DAILY GT 06/08/20 09:00 07/08/20 08:59 06/09/20 09:53 Metoprolol Tartrate (Lopressor) 50 mg EVERY 8 HOURS GT 05/28/20 22:00 08/26/20 21:59 06/10/20 06:06 Pantoprazole (Protonix) 40 mg DAILY IVP 05/26/20 09:00 06/25/20 08:59 06/09/20 09:54 Assessment/Plan Assessment/Plan IMPRESSION leukocytosis sepsis Afib, chronic encephalopathy trach respiratory failure elevated troponin anemia bacteremia- staph fevers better hypertension PLAN off antibiotics body CT prn clonidine isolation ID follow up and recommendations and clearance dc to snf if CT negative respiratory care snf meds noted suction monitor cultures eliquis as is card follow up impression, plan, and exam edited and reviewed in detail care discussed with Fernie Ledezma MD Jun 10, 2020 08:25
[2020-06-10] MEDS: Eliquis 5mg tablet GT SCH ×2 (09:08→17:30)
[2020-06-10] MEDS: Lisinopril 10mg tab GT SCH (09:08)
[2020-06-10] MEDS: Ascorbic Acid 500mg tab GT SCH (09:08)
[2020-06-10] MEDS: Pantoprazole Inj IVP SCH (09:09)
[2020-06-10 09:12] LABS: EOSINOPHILS % (AUTO) 2.6 % (0.0-3.0); HEMATOCRIT 32.2 % (37.0-47.0); LYMPHOCYTES % (AUTO) 13.1 % (20.0-45.0); MEAN CORPUSCULAR VOLUME 77 FL (80-99); MONOCYTES % (AUTO) 6.2 % (1.0-10.0); NEUTROPHILS % (AUTO) 77.2 % (45.0-75.0); PLATELET COUNT 386 K/UL (150-450); RED CELL DISTRIBUTION WIDTH 15.4 % (11.6-14.8); WHITE BLOOD COUNT 15.4 K/UL (4.8-10.8)
[2020-06-10] MEDS: Levemir Flexpen SUBQ SCH ×2 (09:17→21:11)
[2020-06-10 09:28] LABS: ALANINE AMINOTRANSFERASE 14 U/L (12-78); ALBUMIN 2.8 G/DL (3.4-5.0); ALBUMIN/GLOBULIN RATIO 0.5 (1.0-2.7); ALKALINE PHOSPHATASE 97 U/L (46-116); ANION GAP 7 mmol/L (5-15); ASPARTATE AMINO TRANSFERASE 12 U/L (15-37); BILIRUBIN,TOTAL 0.5 MG/DL (0.2-1.0); BLOOD UREA NITROGEN 18 mg/dL (7-18); CALCIUM 9.8 MG/DL (8.5-10.1); CARBON DIOXIDE 32 MMOL/L (21-32); CHLORIDE 98 MMOL/L (98-107); CREATININE 0.6 MG/DL (0.55-1.30); POTASSIUM 4.3 MMOL/L (3.5-5.1); SODIUM 137 MMOL/L (136-145)
--- NOTE | 2020-06-10 10:36 | Infectious Diseases Prog Note ---
"Assessment/Plan Assessment/Plan antibiotics : none A 1. aspiration pneumonia with acenitobacter s/p rx 2. + blood cultures with coag neg staph likely contaminated 3. leucocytosis 4. diabetes mellitus 5. hypertension 6. CVA 7. dementia P 1. observe off antibiotics 2. will follow up cultures 3. CT chest | abdomen | pelvis Subjective ROS Limited/Unobtainable: Yes Allergies: Coded Allergies: No Known Allergies (Unverified , 05/15/20) Objective Last 24 Hour Vital Signs Date Time Temp Pulse Resp B/P (MAP) Pulse Ox O2 Delivery O2 Flow Rate FiO2 06/10/20 09:09 132/63 06/10/20 09:08 132/63 06/10/20 08:00 97.9 83 20 132/63 (86) 100 06/10/20 07:49 97 T-Piece 5.0 28 06/10/20 06:06 81 144/65 06/10/20 04:00 98.1 82 18 144/65 (91) 99 06/10/20 04:00 81 06/10/20 01:30 98 T-Piece 5.0 28 06/10/20 00:27 81 06/10/20 00:00 99.5 87 18 147/71 (96) 100 06/09/20 21:00 Trach Collar 8.0 06/09/20 20:53 85 127/60 06/09/20 20:00 98.8 85 20 129/52 (77) 99 06/09/20 20:00 99 T-Piece 5.0 28 06/09/20 20:00 82 06/09/20 17:29 135/59 06/09/20 16:00 97.9 74 20 135/59 (84) 97 06/09/20 15:56 80 06/09/20 13:17 151/81 06/09/20 13:17 67 151/81 06/09/20 12:50 97 T-Piece 5.0 28 06/09/20 12:00 96.7 67 19 151/81 (104) 99 06/09/20 11:34 69 Height (Feet): 5 Height (Inches): 3.00 Weight (Pounds): 157 HEENT: status post trach Respiratory/Chest: lungs clear Cardiovascular: normal rate, regular rhythm, no gallop/murmur Abdomen: soft, non tender, other - GT Extremities: no edema Laboratory Tests Test 06/09/20 11:40 06/09/20 17:32 06/09/20 20:50 06/09/20 23:51 POC Whole Blood Glucose 206 MG/DL (74-106) H Pending 237 MG/DL (74-106) H 235 MG/DL (74-106) H Test 06/10/20 05:51 06/10/20 08:05 06/10/20 09:16 POC Whole Blood Glucose 191 MG/DL (74-106) H Pending White Blood Count 15.4 K/UL (4.8-10.8) H Red Blood Count 4.20 M/UL (4.20-5.40) Hemoglobin 10.0 G/DL (12.0-16.0) L Hematocrit 32.2 % (37.0-47.0) L Mean Corpuscular Volume 77 FL (80-99) L Mean Corpuscular Hemoglobin 23.8 PG (27.0-31.0) L Mean Corpuscular Hemoglobin Concent 31.1 G/DL (32.0-36.0) L Red Cell Distribution Width 15.4 % (11.6-14.8) H Platelet Count 386 K/UL (150-450) Mean Platelet Volume 9.2 FL (6.5-10.1) Neutrophils (%) (Auto) 77.2 % (45.0-75.0) H Lymphocytes (%) (Auto) 13.1 % (20.0-45.0) L Monocytes (%) (Auto) 6.2 % (1.0-10.0) Eosinophils (%) (Auto) 2.6 % (0.0-3.0) Basophils (%) (Auto) 1.0 % (0.0-2.0) Erythrocyte Sedimentation Rate 102 MM/HR (0-30) H Sodium Level 137 MMOL/L (136-145) Potassium Level 4.3 MMOL/L (3.5-5.1) Chloride Level 98 MMOL/L (98-107) Carbon Dioxide Level 32 MMOL/L (21-32) Anion Gap 7 mmol/L (5-15) Blood Urea Nitrogen 18 mg/dL (7-18) Creatinine 0.6 MG/DL (0.55-1.30) Estimat Glomerular Filtration Rate > 60 mL/min (>60) Glucose Level 172 MG/DL (74-106) H Calcium Level 9.8 MG/DL (8.5-10.1) Total Bilirubin 0.5 MG/DL (0.2-1.0) Aspartate Amino Transf (AST/SGOT) 12 U/L (15-37) L Alanine Aminotransferase (ALT/SGPT) 14 U/L (12-78) Alkaline Phosphatase 97 U/L (46-116) C-Reactive Protein, Quantitative 12.3 mg/dL (0.00-0.90) H Total Protein 7.9 G/DL (6.4-8.2) Albumin 2.8 G/DL (3.4-5.0) L Globulin 5.1 g/dL Albumin/Globulin Ratio 0.5 (1.0-2.7) L Current Medications Medications (Trade) Dose Ordered Sig/Cayden Route PRN Reason Start Time Stop Time Status Last Admin Dose Admin Acetaminophen (Tylenol) 650 mg Q4H PRN GT Pain 05/26/20 07:45 06/25/20 07:44 06/06/20 12:14 Apixaban (Eliquis) 5 mg BID GT 05/26/20 09:00 08/24/20 08:59 06/10/20 09:08 Ascorbic Acid (Vitamin C) 250 mg DAILY GT 05/28/20 09:00 06/27/20 08:59 06/10/20 09:08 Barium Sulfate (Readi-Cat 2) 450 ml NOW PRN ORAL Radiology Procedure 06/09/20 14:15 06/11/20 14:10 Clonidine HCl (Catapres Tab) 0.1 mg Q4H PRN ORAL for sbp>150 06/03/20 09:00 09/01/20 08:59 06/07/20 04:28 Dextrose (Dextrose 50%) 25 ml Q30M PRN IV Hypoglycemia 05/26/20 07:30 08/24/20 07:29 Dextrose (Dextrose 50%) 50 ml Q30M PRN IV Hypoglycemia 05/26/20 07:30 08/24/20 07:29 Furosemide (Lasix) 20 mg DAILY GT 06/03/20 09:00 07/03/20 08:59 06/10/20 09:08 Insulin Aspart (NovoLOG) Q6HR SUBQ 05/26/20 12:00 08/24/20 11:59 06/10/20 06:08 Insulin Detemir (Levemir) 18 units EVERY 12 HOURS SUBQ 06/09/20 09:00 09/07/20 08:59 06/10/20 09:17 Iohexol (OMNIPAQUE-300 100ml) 100 ml ONCE PRN INJ CT SCAN 06/10/20 00:00 06/10/20 23:59 Isosorbide Dinitrate (Isordil) 20 mg THREE TIMES A DAY GT 06/02/20 13:00 07/02/20 12:59 06/10/20 09:09 Lisinopril (ZestriL) 10 mg DAILY GT 06/08/20 09:00 07/08/20 08:59 06/10/20 09:08 Metoprolol Tartrate (Lopressor) 50 mg EVERY 8 HOURS GT 05/28/20 22:00 08/26/20 21:59 06/10/20 06:06 Pantoprazole (Protonix) 40 mg DAILY IVP 05/26/20 09:00 06/25/20 08:59 06/10/20 09:09 Mina Salamanca MD Jun 10, 2020 10:36"
[2020-06-10 12:00] VITALS: BP 130/73
--- NOTE | 2020-06-10 14:39 | Surgery Progress Note ---
Surgery Progress Note Subjective Additional Comments required debridement of ulcer today Objective Last 24 Hour Vital Signs Date Time Temp Pulse Resp B/P (MAP) Pulse Ox O2 Delivery O2 Flow Rate FiO2 06/10/20 13:55 83 132/63 06/10/20 13:00 132/63 06/10/20 13:00 98 T-Piece 5.0 28 06/10/20 12:00 96.6 73 19 130/73 (92) 100 06/10/20 09:09 132/63 06/10/20 09:08 132/63 06/10/20 09:00 Trach Collar 5.0 06/10/20 08:00 97.9 83 20 132/63 (86) 100 06/10/20 07:51 81 06/10/20 07:49 97 T-Piece 5.0 28 06/10/20 06:06 81 144/65 06/10/20 04:00 98.1 82 18 144/65 (91) 99 06/10/20 04:00 81 06/10/20 01:30 98 T-Piece 5.0 28 06/10/20 00:27 81 06/10/20 00:00 99.5 87 18 147/71 (96) 100 06/09/20 21:00 Trach Collar 8.0 06/09/20 20:53 85 127/60 06/09/20 20:00 98.8 85 20 129/52 (77) 99 06/09/20 20:00 99 T-Piece 5.0 28 06/09/20 20:00 82 06/09/20 17:29 135/59 06/09/20 16:00 97.9 74 20 135/59 (84) 97 06/09/20 15:56 80 I&O Intake and Output 06/09/20 06/10/20 19:00 07:00 Intake Total 600 ml 370 ml Output Total 700 ml 600 ml Balance -100 ml -230 ml Free Water 120 ml Tube Feeding 600 ml 250 ml Output Urine Total 700 ml 600 ml # Voids 1 # Bowel Movements 2 Dressing: saturated Cardiovascular: RSR Respiratory: decreased breath sounds Abdomen: soft, non-tender, present bowel sounds Extremities: no tenderness, no cyanosis Laboratory Tests Test 06/09/20 17:32 06/09/20 20:50 06/09/20 23:51 9/11/20 05:51 POC Whole Blood Glucose Pending 237 MG/DL (74-106) H 235 MG/DL (74-106) H 191 MG/DL (74-106) H Test 06/10/20 08:05 06/10/20 09:16 06/10/20 11:44 White Blood Count 15.4 K/UL (4.8-10.8) H Red Blood Count 4.20 M/UL (4.20-5.40) Hemoglobin 10.0 G/DL (12.0-16.0) L Hematocrit 32.2 % (37.0-47.0) L Mean Corpuscular Volume 77 FL (80-99) L Mean Corpuscular Hemoglobin 23.8 PG (27.0-31.0) L Mean Corpuscular Hemoglobin Concent 31.1 G/DL (32.0-36.0) L Red Cell Distribution Width 15.4 % (11.6-14.8) H Platelet Count 386 K/UL (150-450) Mean Platelet Volume 9.2 FL (6.5-10.1) Neutrophils (%) (Auto) 77.2 % (45.0-75.0) H Lymphocytes (%) (Auto) 13.1 % (20.0-45.0) L Monocytes (%) (Auto) 6.2 % (1.0-10.0) Eosinophils (%) (Auto) 2.6 % (0.0-3.0) Basophils (%) (Auto) 1.0 % (0.0-2.0) Erythrocyte Sedimentation Rate 102 MM/HR (0-30) H Sodium Level 137 MMOL/L (136-145) Potassium Level 4.3 MMOL/L (3.5-5.1) Chloride Level 98 MMOL/L (98-107) Carbon Dioxide Level 32 MMOL/L (21-32) Anion Gap 7 mmol/L (5-15) Blood Urea Nitrogen 18 mg/dL (7-18) Creatinine 0.6 MG/DL (0.55-1.30) Estimat Glomerular Filtration Rate > 60 mL/min (>60) Glucose Level 172 MG/DL (74-106) H Calcium Level 9.8 MG/DL (8.5-10.1) Total Bilirubin 0.5 MG/DL (0.2-1.0) Aspartate Amino Transf (AST/SGOT) 12 U/L (15-37) L Alanine Aminotransferase (ALT/SGPT) 14 U/L (12-78) Alkaline Phosphatase 97 U/L (46-116) C-Reactive Protein, Quantitative 12.3 mg/dL (0.00-0.90) H Total Protein 7.9 G/DL (6.4-8.2) Albumin 2.8 G/DL (3.4-5.0) L Globulin 5.1 g/dL Albumin/Globulin Ratio 0.5 (1.0-2.7) L POC Whole Blood Glucose Pending 160 MG/DL (74-106) H Plan Problems: (1) Anemia (2) Sepsis Assessment & Plan: 74-year-old female with medical comorbidities present with leukocytosis anemia abnormal labs hypoalbuminemia failure to thrive malnutrition worsening decubitus ulcer admitted further care and management was prior on vancomycin now on IV antibiotics admitted and under monitoring. Full evaluation does not at the bedside and evaluation performed. Trach stable PEG tube stable skin deteriorating per her turgor worsening decubitus ulcer malnutrition continue tube feeds as tolerated continue antibiotics wounds unlikely etiology of patient's sepsis we will monitor and follow with recommendations trend labs thank you for letting participate patient's care improving DAILY ESTIMATED NEEDS: Needs based on Wound, DM/ 57kg abw 25-30 kcals/kg 3612-0176 total kcals 1.25-1.8 g protein/kg 71-103 g total protein 20-25 mL/kg 8715-8231 total fluid mLs NUTRITION DIAGNOSIS: * Increased kcal/prot needs R/T wound healing as evidenced by pt admiteed w/ unstageable sacral wound, refer to full wound care eval. * Swallowing difficulty R/T dysphagia, respiratory status as evidenced by pt on T-collar, PEG dep. CURRENT TF:Glucerna 1.2 @ 50ml/hr x 24 hrs ENTERAL NUTRITION RECOMMENDATIONS: Glucerna 1.2 @ 50ml/hr x 24 hrs to provide 1200ml, 1440kcal, 72g, 966ml free water * Maintain current TF * HOB over 30 degrees/ water flush per MD : ADDITIONAL RECOMMENDATIONS: * Calibrated bedscale wt -w/ added p200 mattress + pump * Wound healing: TF @ goal will provide 100% RDI Continue Vit C 250mg QD Add Endy BID via PEG * Monitor lytes closely w/ Lasix, replete as needed * Check updated CBC and BMP (last done 06/02) * Monitor BGs closely, need to adjust insulin (3) Elevated troponin (4) Pneumonia (5) Encounter for generalized patient complaints (6) Decubitus skin ulcer Assessment & Plan: Patient presented on admission with an Unstageable Sacral Pressure injury(L)9.8cm x (W)6.7cm. Base of wound is 80% necrotic ,20% mixed slough ,beefy red. Small amt serous exudate. Mild odor noted. Borders are macerated with surrounding maroon and indurated borders. MASD noted to Mons-pubis outer aspects of R and L buttocks. Perineum and bilat ischial tuberosities. Affected areas mentioned are erythematous, macerated with scattered satellite lesions. Non-Blanchable erythema without induration or fluctuance R and L Heels. Skin assessed under tracheal collar and no evidence of skin breakdown noted. Assessed pt and necrotic base of Sacral wound crosshatched by Md. Unstageable Sacral Pressure Injury (L)9.8cm x (W)7cm. 90% dry necrotic cap ,10% lj borders. Edges are adherent to base of wound. Periwound is pink and dry. No odor or exudate noted. Small external haemorrhoid with small amt bleeding noted. R and L heels are both blanchable. No new skin concerns noted. Wound Tx are effective and continued as ordered . All wound prevention protocols continued as care-planned. Pt has an APM/DANIEL Mattress overlay and is being positioned as per tolerance and within protocols. s/p excisional debridement of stage 4 decubitus ulcer Tx.Plan: Cleanse Sacral wound with Saline. Apply TheraHoney. Apply Moisture Barrier Paste periwound. Cover with Optifoam Drsg. Change Daily and prn. Apply Moisture Barrier Paste to Mons Pubis, Perineum and buttocks with each Incontinence care. Apply Cavilon Skin Barrier to Both heels and Malleoli. Cover each site with Optifoam Drsg. Change every 7 days and prn. Reposition at least every 2hours or as tolerated. Off-load heels with Pillow. Reposition at least every 2hours or as tolerated. APM/DANIEL mattress overlay. Adrian Gar Jun 10, 2020 14:39
--- NOTE | 2020-06-10 14:41 | Operative Note - PDOC ---
Operative Note Operative Note Date of Operation/Procedure: Jun 10, 2020 Pre-op Diagnosis: Unstageable sacral decubitus ulcer with foul-smelling necrotic eschar Now draining and eschar Falling off Procedure: Excisional debridement of sacral decubitus ulcer 10 cm x 10 cm x 4 cm deep down to bone Post-op Diagnosis: Stage IV sacral decubitus ulcer Surgeon: Adrian Gar MD Specimen: yes Complications: none Condition: stable Estimated Blood Loss: minimal Drains: none Implant(s) used?: No Indications for Procedure 74-year-old female with unstageable sacral cubitus ulcer large area of eschar necrosis now nearly falling off with drainage. Debridement indicated recommended and necessary for patient's care and perform during wound care today given the severity of the wound identified during care Description of Procedure Patient was made comfortable bedside left lateral decubitus position. With wound care team present the site was cleansed. Incontinence was clean. Site was prepped and draped. Using #10 scalpel and surgical scissors the necrotic eschar And nonviable underneath tissue were debrided to an area approximately 10 cm x 10 a centimeter by 4 cm deep the bone was palpable identified. No other tunneling was identified. The periwound was intact. Once the slough and necrotic tissue evacuated the underlying fluid collections that been building up in the sloth were cleaned up and excised removed and down to healthy viable tissue. The wound will significantly be improved at this time for care plan and if granulation tissue forms can consider closure. Adrian Gar Jun 10, 2020 14:41
--- NOTE | 2020-06-10 15:01 | Diagnostic Imaging Report ---
CLINICAL INDICATION:Chest pain and abdominal pain TECHNIQUE: Patient given enteric contrast via gastrostomy. IV administration nonionic contrast Spiral acquisitions obtained through the chest, abdomen, and pelvis. Multiplanar reconstructions were generated. Total dose length product 951 mGycm. CTDIvol(s) 56, 2, 9, 9 mGy. Radiation dose was minimized using automated exposure control COMPARISON: none FINDINGS Chest: There is a small to moderate left pleural effusion. This results in compressive atelectasis of the posterior inferior left lower lobe. The remainder of the lungs demonstrate mosaic perfusion pattern, without definite infiltrates, mass, or nodule. There is a tracheostomy which appears adequately positioned. The proximal airways appear unremarkable. The heart is enlarged. No mediastinal or hilar mass or adenopathy. Subcentimeter right lobe thyroid nodule is noted. No axillary or chest wall mass or adenopathy demonstrated. The bones are unremarkable. Abdomen pelvis: There are fairly extensive decubitus changes in the retrococcygeal region. There is considerable skin thickening, and subcutaneous gas bubbles either indicate penetrating decubitus ulcer or infection with a gas-forming organism. There may be a tiny fluid collection posterior to the tip of the coccyx to the right of midline which if real measures approximately 2.5 x 0.5 cm. There may be some erosive changes of the adjacent sacrum and coccyx although this is difficult to state for certain. The bladder contains a Hinkle catheter. There is a 8 mm calculus in the dependent portion of the bladder lumen to the left of midline. There is urine within the bladder despite the presence of the Hinkle catheter. No evidence of diverticulosis or diverticulitis. The appendix is normal. No small bowel distention or small bowel wall thickening. Gastrostomy appears appropriately positioned. The stomach and duodenum are otherwise unremarkable. The esophagus is unremarkable. There are cholecystectomy clips. The liver, bile ducts, pancreas, spleen, adrenals are unremarkable. The kidneys demonstrate subcentimeter low-attenuation lesions and some cortical scarring bilaterally. No retroperitoneal or mesenteric mass or adenopathy. No pelvic mass or adenopathy. The uterus is absent. The bones are unremarkable other than the possible retrococcygeal erosive changes. IMPRESSION: Cardiomegaly Small to moderate left pleural effusion. Compressive atelectasis of portions of the posterior inferior left lower lobe. Subtle mosaic pulmonary perfusion pattern, nonspecific but likely on the basis of mild pulmonary edema, given the above findings Retrococcygeal decubitus changes, with evidence of skin thickening and subcutaneous gas bubbles, latter most likely indicating penetrating ulcer but infection with a gas-forming organism also possible. Possible tiny 2.5 x 0.5 cm fluid collection, could indicate a small abscess. This was discussed by phone with Dr. Salamanca at the time of interpretation Hinkle catheter. Retained urine despite the Hinkle catheter 8 mm bladder stone Gastrostomy Evidence of prior hysterectomy and cholecystectomy Tracheostomy Probable small bilateral renal cysts, small thyroid nodule incidentally noted The CT scanner at [facility] is accredited by the [employer] and the scans are performed using protocols designed to limit radiation exposure to as low as reasonably achievable to attain images of sufficient resolution adequate for diagnostic evaluation.
[2020-06-10 16:00] VITALS: BP 131/81
[2020-06-10] MEDS: Vancomycin 750 MG in NS 275 ML IVPB SCH (16:57)
[2020-06-10 20:00] VITALS: BP 153/64
[2020-06-10] MEDS: Cefepime 1gm in D5W 55ml IVPB SCH (21:08)
--- NOTE | 2020-06-10 22:05 | Cardiology Progress Note ---
Subjective DATE OF SERVICE: Jun 10, 2020 On T-collar BP range improved Sputum culture A.baumanni Monitor: Sinus with PAFIb and short runs of aberrancy. CT scan: Pulmonary edema and pleural effusion Wound with abscess or gas forming organisms Objective Last 24 Hour Vital Signs Date Time Temp Pulse Resp B/P (MAP) Pulse Ox O2 Delivery O2 Flow Rate FiO2 06/10/20 21:09 93 153/64 06/10/20 21:00 Trach Collar 5.0 06/10/20 20:20 98 T-Piece 5.0 28 06/10/20 20:00 99.1 93 22 153/64 (93) 94 06/10/20 17:30 131/81 06/10/20 16:09 80 06/10/20 16:00 96.8 86 18 131/81 (98) 100 06/10/20 13:55 83 132/63 06/10/20 13:00 132/63 06/10/20 13:00 98 T-Piece 5.0 28 06/10/20 12:00 96.6 73 19 130/73 (92) 100 06/10/20 11:49 89 06/10/20 09:09 132/63 06/10/20 09:08 132/63 06/10/20 09:00 Trach Collar 5.0 06/10/20 08:00 97.9 83 20 132/63 (86) 100 06/10/20 07:51 81 06/10/20 07:49 97 T-Piece 5.0 28 06/10/20 06:06 81 144/65 06/10/20 04:00 98.1 82 18 144/65 (91) 99 06/10/20 04:00 81 06/10/20 01:30 98 T-Piece 5.0 28 06/10/20 00:27 81 06/10/20 00:00 99.5 87 18 147/71 (96) 100 ROS: no change from my assessment of 05/25/20 - remains unobtainable from patient HEENT: normal ENT inspection, Thick Trach secretions RHYTHM: NSR, PACs LUNGS: diminished breath sounds - left, bilateral rhonchi CARDIAC: normal rate, regular rhythm, normal S1 and S2, arrhythmia ABDOMEN: normal bowel sounds, non tender, soft, G-Tube intact EXTREMITIES: trace edema, other - sacral decub. noncommunicative Laboratory Tests Test 06/09/20 23:51 06/10/20 05:51 06/10/20 08:05 06/10/20 09:16 POC Whole Blood Glucose 235 MG/DL (74-106) H 191 MG/DL (74-106) H Pending White Blood Count 15.4 K/UL (4.8-10.8) H Red Blood Count 4.20 M/UL (4.20-5.40) Hemoglobin 10.0 G/DL (12.0-16.0) L Hematocrit 32.2 % (37.0-47.0) L Mean Corpuscular Volume 77 FL (80-99) L Mean Corpuscular Hemoglobin 23.8 PG (27.0-31.0) L Mean Corpuscular Hemoglobin Concent 31.1 G/DL (32.0-36.0) L Red Cell Distribution Width 15.4 % (11.6-14.8) H Platelet Count 386 K/UL (150-450) Mean Platelet Volume 9.2 FL (6.5-10.1) Neutrophils (%) (Auto) 77.2 % (45.0-75.0) H Lymphocytes (%) (Auto) 13.1 % (20.0-45.0) L Monocytes (%) (Auto) 6.2 % (1.0-10.0) Eosinophils (%) (Auto) 2.6 % (0.0-3.0) Basophils (%) (Auto) 1.0 % (0.0-2.0) Erythrocyte Sedimentation Rate 102 MM/HR (0-30) H Sodium Level 137 MMOL/L (136-145) Potassium Level 4.3 MMOL/L (3.5-5.1) Chloride Level 98 MMOL/L (98-107) Carbon Dioxide Level 32 MMOL/L (21-32) Anion Gap 7 mmol/L (5-15) Blood Urea Nitrogen 18 mg/dL (7-18) Creatinine 0.6 MG/DL (0.55-1.30) Estimat Glomerular Filtration Rate > 60 mL/min (>60) Glucose Level 172 MG/DL (74-106) H Calcium Level 9.8 MG/DL (8.5-10.1) Total Bilirubin 0.5 MG/DL (0.2-1.0) Aspartate Amino Transf (AST/SGOT) 12 U/L (15-37) L Alanine Aminotransferase (ALT/SGPT) 14 U/L (12-78) Alkaline Phosphatase 97 U/L (46-116) C-Reactive Protein, Quantitative 12.3 mg/dL (0.00-0.90) H Total Protein 7.9 G/DL (6.4-8.2) Albumin 2.8 G/DL (3.4-5.0) L Globulin 5.1 g/dL Albumin/Globulin Ratio 0.5 (1.0-2.7) L Test 06/10/20 11:44 06/10/20 17:24 06/10/20 20:04 POC Whole Blood Glucose 160 MG/DL (74-106) H Pending 260 MG/DL (74-106) H Assessment/Plan Assessment/Plan Healthcare associated PNA Left pleural effusion Acute myocardial ischemia with possible NSTE myocardial infarction Sepsis Respiratory failure Hypertension/HHD Parox AFib Conduction system disease with bifasc block Ac/chr diastolic CHF Low lipid parameters NSVT IRDM with hyperglycemia Hypomagnesemia Contaminant in positive blood cultures Resp Rx Off antibiotics 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 Full anticoagulation Titrate CV regimen based on clinical parameters - continue current antianginal regimen, including beta pietro; ACEi added - to be titrated. No need for statin Titrate insulin rx as needed Wound care Consider thorocentesis John Heard MD Jun 10, 2020 22:05
[2020-06-11] VITALS: BP 148/73
[2020-06-11] MEDS: NovoLOG Insulin Flexpen SUBQ SCH ×4 (00:15→17:49)
[2020-06-11 04:00] VITALS: BP 190/79
[2020-06-11] MEDS: Vancomycin 750 MG in NS 275 ML IVPB SCH ×2 (04:10→16:14)
[2020-06-11] MEDS: Metoprolol Tartrate 50mg tab GT SCH ×3 (05:49→22:39)
[2020-06-11 08:00] VITALS: BP 163/90
[2020-06-11] MEDS: Pantoprazole Inj IVP SCH (09:00)
[2020-06-11] MEDS: Lisinopril 10mg tab GT SCH (09:00)
[2020-06-11] MEDS: Eliquis 5mg tablet GT SCH ×2 (09:00→17:47)
[2020-06-11] MEDS: Cefepime 1gm in D5W 55ml IVPB SCH ×2 (09:00→20:47)
[2020-06-11] MEDS: Ascorbic Acid 500mg tab GT SCH (09:00)
[2020-06-11] MEDS: Levemir Flexpen SUBQ SCH ×2 (09:00→20:50)
[2020-06-11 12:00] VITALS: BP 146/77
--- NOTE | 2020-06-11 12:10 | Surgery Progress Note ---
Surgery Progress Note Subjective Procedure Performed Excisional debridement of sacral decubitus ulcer 10 cm x 10 cm x 4 cm deep down to bone Additional Comments no acute events wound much improved since debridement Objective Last 24 Hour Vital Signs Date Time Temp Pulse Resp B/P (MAP) Pulse Ox O2 Delivery O2 Flow Rate FiO2 06/11/20 09:00 Trach Collar 5.0 06/11/20 09:00 163/90 06/11/20 09:00 163/90 06/11/20 08:00 98.2 97 18 163/90 (114) 98 06/11/20 08:00 99 06/11/20 05:49 190/79 06/11/20 05:49 106 190/79 06/11/20 04:00 106 06/11/20 04:00 99.0 90 22 190/79 (116) 98 06/11/20 01:19 98 T-Piece 5.0 28 06/11/20 00:00 100 06/11/20 00:00 98.6 87 22 148/73 (98) 94 06/10/20 21:09 93 153/64 06/10/20 21:00 Trach Collar 5.0 06/10/20 20:20 98 T-Piece 5.0 28 06/10/20 20:00 92 06/10/20 20:00 99.1 93 22 153/64 (93) 94 06/10/20 17:30 131/81 06/10/20 16:09 80 06/10/20 16:00 96.8 86 18 131/81 (98) 100 06/10/20 13:55 83 132/63 06/10/20 13:00 132/63 06/10/20 13:00 98 T-Piece 5.0 28 I&O Intake and Output 06/10/20 06/11/20 19:00 07:00 Intake Total 710 ml 550 ml Output Total 900 ml Balance -190 ml 550 ml Free Water 60 ml Tube Feeding 650 ml 550 ml Output Urine Total 900 ml # Bowel Movements 2 2 Dressing: saturated Cardiovascular: RSR Respiratory: decreased breath sounds Abdomen: soft, non-tender, present bowel sounds Extremities: no edema, no tenderness, no cyanosis Laboratory Tests Test 06/10/20 17:24 06/10/20 20:04 06/11/20 10:07 06/11/20 11:49 POC Whole Blood Glucose Pending 260 MG/DL (74-106) H Pending 312 MG/DL (74-106) H Assessment Post-op Diagnosis Stage IV sacral decubitus ulcer Plan Problems: (1) Anemia (2) Sepsis Assessment & Plan: 74-year-old female with medical comorbidities present with leukocytosis anemia abnormal labs hypoalbuminemia failure to thrive malnutrition worsening decubitus ulcer admitted further care and management was prior on vancomycin now on IV antibiotics admitted and under monitoring. Full evaluation does not at the bedside and evaluation performed. Trach stable PEG tube stable skin deteriorating per her turgor worsening decubitus ulcer malnutrition continue tube feeds as tolerated continue antibiotics wounds unlikely etiology of patient's sepsis we will monitor and follow with recommendations trend labs thank you for letting participate patient's care improving DAILY ESTIMATED NEEDS: Needs based on Wound, DM/ 57kg abw 25-30 kcals/kg 4067-1627 total kcals 1.25-1.8 g protein/kg 71-103 g total protein 20-25 mL/kg 3524-3570 total fluid mLs NUTRITION DIAGNOSIS: * Increased kcal/prot needs R/T wound healing as evidenced by pt admiteed w/ unstageable sacral wound, refer to full wound care eval. * Swallowing difficulty R/T dysphagia, respiratory status as evidenced by pt on T-collar, PEG dep. CURRENT TF:Glucerna 1.2 @ 50ml/hr x 24 hrs ENTERAL NUTRITION RECOMMENDATIONS: Glucerna 1.2 @ 50ml/hr x 24 hrs to provide 1200ml, 1440kcal, 72g, 966ml free water * Maintain current TF * HOB over 30 degrees/ water flush per MD ADDITIONAL RECOMMENDATIONS: * Calibrated bedscale wt -w/ added p200 mattress + pump * Wound healing: TF @ goal will provide 100% RDI Continue Vit C 250mg QD + add Endy BID via PEG * Monitor lytes closely w/ Lasix, replete as needed * Monitor BGs, rec increasing Levemir (POC glu 373 310) . (3) Elevated troponin (4) Pneumonia (5) Encounter for generalized patient complaints (6) Decubitus skin ulcer Assessment & Plan: Patient presented on admission with an Unstageable Sacral Pressure injury(L)9.8cm x (W)6.7cm. Base of wound is 80% necrotic ,20% mixed slough ,beefy red. Small amt serous exudate. Mild odor noted. Borders are macerated with surrounding maroon and indurated borders. MASD noted to Mons-pubis outer aspects of R and L buttocks. Perineum and bilat ischial tuberosities. Affected areas mentioned are erythematous, macerated with scattered satellite lesions. Non-Blanchable erythema without induration or fluctuance R and L Heels. Skin assessed under tracheal collar and no evidence of skin breakdown noted. Assessed pt and necrotic base of Sacral wound crosshatched by . Unstageable Sacral Pressure Injury (L)9.8cm x (W)7cm. 90% dry necrotic cap ,10% lj borders. Edges are adherent to base of wound. Periwound is pink and dry. No odor or exudate noted. Small external haemorrhoid with small amt bleeding noted. R and L heels are both blanchable. No new skin concerns noted. Wound Tx are effective and continued as ordered . All wound prevention protocols continued as care-planned. Pt has an APM/DANIEL Mattress overlay and is being positioned as per tolerance and within protocols. s/p excisional debridement of stage 4 decubitus ulcer Tx.Plan: Cleanse Sacral wound with Saline. Apply TheraHoney. Apply Moisture Barrier Paste periwound. Cover with Optifoam Drsg. Change Daily and prn. Apply Moisture Barrier Paste to Mons Pubis, Perineum and buttocks with each Incontinence care. Apply Cavilon Skin Barrier to Both heels and Malleoli. Cover each site with Optifoam Drsg. Change every 7 days and prn. Reposition at least every 2hours or as tolerated. Off-load heels with Pillow. Reposition at least every 2hours or as tolerated. APM/DANIEL mattress overlay. Adrian Gar Jun 11, 2020 12:10
--- NOTE | 2020-06-11 13:32 | Pulmonology Progress Note ---
Subjective ROS Limited/Unobtainable: Yes Constitutional: Denies: fever Allergies: Coded Allergies: No Known Allergies (Unverified , 05/15/20) Subjective care noted MDRO- treated wbc noted and still elevated ID reviewed elevated ESR and osteo Objective Last 24 Hour Vital Signs Date Time Temp Pulse Resp B/P (MAP) Pulse Ox O2 Delivery O2 Flow Rate FiO2 06/11/20 13:29 146/77 06/11/20 13:28 98 146/77 06/11/20 12:00 98.2 98 21 146/77 (100) 98 06/11/20 12:00 101 06/11/20 09:00 Trach Collar 5.0 06/11/20 09:00 163/90 06/11/20 09:00 163/90 06/11/20 08:00 98.2 97 18 163/90 (114) 98 06/11/20 08:00 99 06/11/20 07:56 98 T-Piece 5.0 28 06/11/20 05:49 190/79 06/11/20 05:49 106 190/79 06/11/20 04:00 106 06/11/20 04:00 99.0 90 22 190/79 (116) 98 06/11/20 01:19 98 T-Piece 5.0 28 06/11/20 00:00 100 06/11/20 00:00 98.6 87 22 148/73 (98) 94 06/10/20 21:09 93 153/64 06/10/20 21:00 Trach Collar 5.0 06/10/20 20:20 98 T-Piece 5.0 28 06/10/20 20:00 92 06/10/20 20:00 99.1 93 22 153/64 (93) 94 06/10/20 17:30 131/81 06/10/20 16:09 80 06/10/20 16:00 96.8 86 18 131/81 (98) 100 06/10/20 13:55 83 132/63 Intake and Output 06/10/20 06/11/20 19:00 07:00 Intake Total 710 ml 550 ml Output Total 900 ml Balance -190 ml 550 ml Free Water 60 ml Tube Feeding 650 ml 550 ml Output Urine Total 900 ml # Bowel Movements 2 2 Objective WDWN NAD trach reduced breath sounds bilaterally without rhonchi [id number] without MRG NABS nontender GT no CCE withdrawn Laboratory Tests 06/10/20 17:24: POC Whole Blood Glucose [Pending] 06/10/20 20:04: POC Whole Blood Glucose 260H 06/11/20 10:07: POC Whole Blood Glucose [Pending] 06/11/20 11:49: POC Whole Blood Glucose 312H Current Medications Medications (Trade) Dose Ordered Sig/Cayden Route PRN Reason Start Time Stop Time Status Last Admin Dose Admin Acetaminophen (Tylenol) 650 mg Q4H PRN GT Pain 05/26/20 07:45 06/25/20 07:44 06/06/20 12:14 Apixaban (Eliquis) 5 mg BID GT 05/26/20 09:00 08/24/20 08:59 06/11/20 09:00 Ascorbic Acid (Vitamin C) 250 mg DAILY GT 05/28/20 09:00 06/27/20 08:59 06/11/20 09:00 Barium Sulfate (Readi-Cat 2) 450 ml NOW PRN ORAL Radiology Procedure 06/09/20 14:15 06/11/20 14:10 Cefepime HCl 1 gm/ Dextrose 55 ml @ 110 mls/hr EVERY 12 HOURS IVPB 06/10/20 21:00 06/17/20 20:59 06/11/20 09:00 Clonidine HCl (Catapres Tab) 0.1 mg Q4H PRN ORAL for sbp>150 06/03/20 09:00 09/01/20 08:59 06/11/20 05:49 Dextrose (Dextrose 50%) 25 ml Q30M PRN IV Hypoglycemia 05/26/20 07:30 08/24/20 07:29 Dextrose (Dextrose 50%) 50 ml Q30M PRN IV Hypoglycemia 05/26/20 07:30 08/24/20 07:29 Furosemide (Lasix) 40 mg DAILY IV 06/11/20 09:00 07/11/20 08:59 06/11/20 09:00 Insulin Aspart (NovoLOG) Q6HR SUBQ 05/26/20 12:00 08/24/20 11:59 06/11/20 11:56 Insulin Detemir (Levemir) 18 units EVERY 12 HOURS SUBQ 06/09/20 09:00 09/07/20 08:59 06/11/20 09:00 Isosorbide Dinitrate (Isordil) 20 mg THREE TIMES A DAY GT 06/02/20 13:00 07/02/20 12:59 06/11/20 13:29 Lisinopril (ZestriL) 10 mg DAILY GT 06/08/20 09:00 07/08/20 08:59 06/11/20 09:00 Metoprolol Tartrate (Lopressor) 50 mg EVERY 8 HOURS GT 05/28/20 22:00 08/26/20 21:59 06/11/20 13:28 Pantoprazole (Protonix) 40 mg DAILY IVP 05/26/20 09:00 06/25/20 08:59 06/11/20 09:00 Vancomycin HCl (Vanco pharmacy to dose) 1 ea DAILY PRN MISC Per rx protocol 06/10/20 14:30 07/10/20 14:29 Vancomycin HCl 750 mg/Sodium Chloride 275 ml @ 183.333 mls/hr Q12HR@0400,1600 IVPB 06/10/20 16:00 06/15/20 15:59 06/11/20 04:10 Assessment/Plan Assessment/Plan IMPRESSION leukocytosis sepsis Afib, chronic encephalopathy trach respiratory failure elevated troponin anemia bacteremia- staph fevers better hypertension osteo PLAN CT with osteo ESR elevated respiratory care snf meds noted suction monitor cultures eliquis as is card follow up IV antibiotics and care impression, plan, and exam edited and reviewed in detail care discussed with Fernie Ledezma MD Jun 11, 2020 13:32
[2020-06-11 16:00] VITALS: BP 144/76
--- NOTE | 2020-06-11 18:49 | Cardiology Progress Note ---
Subjective DATE OF SERVICE: Jun 11, 2020 On T-collar BP range elevated at times Glucose trend up Sputum culture A.baumanni Monitor: Sinus with PAFIb and short runs of aberrancy. CT scan: Pulmonary edema and pleural effusion Wound with abscess or gas forming organisms Objective Last 24 Hour Vital Signs Date Time Temp Pulse Resp B/P (MAP) Pulse Ox O2 Delivery O2 Flow Rate FiO2 06/11/20 17:47 144/76 06/11/20 16:00 98.0 86 20 144/76 (98) 98 06/11/20 16:00 105 06/11/20 13:29 146/77 06/11/20 13:28 98 146/77 06/11/20 13:22 98 T-Piece 5.0 28 06/11/20 12:00 98.2 98 21 146/77 (100) 98 06/11/20 12:00 101 06/11/20 09:00 Trach Collar 5.0 06/11/20 09:00 163/90 06/11/20 09:00 163/90 06/11/20 08:00 98.2 97 18 163/90 (114) 98 06/11/20 08:00 99 06/11/20 07:56 98 T-Piece 5.0 28 06/11/20 05:49 190/79 06/11/20 05:49 106 190/79 06/11/20 04:00 106 06/11/20 04:00 99.0 90 22 190/79 (116) 98 06/11/20 01:19 98 T-Piece 5.0 28 06/11/20 00:00 100 06/11/20 00:00 98.6 87 22 148/73 (98) 94 06/10/20 21:09 93 153/64 06/10/20 21:00 Trach Collar 5.0 06/10/20 20:20 98 T-Piece 5.0 28 06/10/20 20:00 92 06/10/20 20:00 99.1 93 22 153/64 (93) 94 ROS: no change from my assessment of 05/25/20 - remains unobtainable from patient HEENT: normal ENT inspection, Thick Trach secretions RHYTHM: NSR, PACs LUNGS: diminished breath sounds - left, bilateral rhonchi CARDIAC: normal rate, regular rhythm, normal S1 and S2, arrhythmia ABDOMEN: normal bowel sounds, non tender, soft, G-Tube intact EXTREMITIES: trace edema, other - sacral decub. 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 Full anticoagulation Titrate CV regimen based on clinical parameters - continue current antianginal regimen, including beta pietro; ACEi advanced. No need for statin Titrate insulin rx - advancing levemir. Wound care Consider thorocentesis John Heard MD Jun 11, 2020 18:49
[2020-06-11 20:00] VITALS: BP 126/55
[2020-06-12] VITALS: BP 147/74
[2020-06-12] MEDS: NovoLOG Insulin Flexpen SUBQ SCH ×5 (00:56→23:52)
[2020-06-12 04:00] VITALS: BP 128/73
[2020-06-12] MEDS: Metoprolol Tartrate 50mg tab GT SCH ×3 (06:24→21:18)
[2020-06-12 08:00] VITALS: BP 140/78
[2020-06-12] MEDS: Ascorbic Acid 500mg tab GT SCH (09:16)
[2020-06-12] MEDS: Lisinopril 10mg tab GT SCH (09:16)
[2020-06-12] MEDS: Eliquis 5mg tablet GT SCH ×2 (09:16→17:29)
[2020-06-12] MEDS: Cefepime 1gm in D5W 55ml IVPB SCH ×2 (09:16→21:17)
[2020-06-12] MEDS: Pantoprazole Inj IVP SCH (09:17)
[2020-06-12] MEDS: Levemir Flexpen SUBQ SCH ×2 (09:18→21:21)
[2020-06-12 12:00] VITALS: BP 125/68
[2020-06-12] MEDS ORDERED: Vancomycin 1.5gm/NS Premix IVPB SCH (12:00)
--- NOTE | 2020-06-12 12:59 | Pulmonology Progress Note ---
Subjective ROS Limited/Unobtainable: Yes Constitutional: Denies: fever Allergies: Coded Allergies: No Known Allergies (Unverified , 05/15/20) Subjective care noted MDRO- treated wbc noted and still elevated ID reviewed elevated ESR and osteo Objective Last 24 Hour Vital Signs Date Time Temp Pulse Resp B/P (MAP) Pulse Ox O2 Delivery O2 Flow Rate FiO2 06/12/20 12:21 140/78 06/12/20 09:16 140/78 06/12/20 09:14 140/78 06/12/20 07:00 96 T-Piece 5.0 28 06/12/20 06:24 96 128/73 06/12/20 04:00 96 06/12/20 04:00 98.1 96 24 128/73 (91) 98 06/12/20 01:12 97 T-Piece 5.0 28 06/12/20 00:00 97.9 95 24 147/74 (98) 97 06/12/20 00:00 94 06/11/20 22:39 88 126/55 06/11/20 21:00 Trach Collar 5.0 06/11/20 20:00 88 06/11/20 20:00 98.1 88 26 126/55 (78) 97 06/11/20 19:41 98 T-Piece 5.0 28 06/11/20 17:47 144/76 06/11/20 16:00 98.0 86 20 144/76 (98) 98 06/11/20 16:00 105 06/11/20 13:29 146/77 06/11/20 13:28 98 146/77 06/11/20 13:22 98 T-Piece 5.0 28 Intake and Output 06/11/20 06/12/20 19:00 07:00 Intake Total 330.000 ml 50 ml Output Total 800 ml 50 ml Balance -470.000 ml 0 ml IV Total 330.000 ml Tube Feeding 50 ml Output Urine Total 800 ml 50 ml # Bowel Movements 2 Objective WDWN NAD trach reduced breath sounds bilaterally without rhonchi [id number] without MRG NABS nontender GT no CCE withdrawn Laboratory Tests 06/11/20 20:12: POC Whole Blood Glucose 285H 06/12/20 00:52: POC Whole Blood Glucose 338H 06/12/20 02:50: Vancomycin Level Trough 24.6H 06/12/20 09:13: POC Whole Blood Glucose [Pending] 06/12/20 12:20: POC Whole Blood Glucose [Pending] Current Medications Medications (Trade) Dose Ordered Sig/Cayden Route PRN Reason Start Time Stop Time Status Last Admin Dose Admin Acetaminophen (Tylenol) 650 mg Q4H PRN GT Pain 05/26/20 07:45 06/25/20 07:44 06/06/20 12:14 Apixaban (Eliquis) 5 mg BID GT 05/26/20 09:00 08/24/20 08:59 06/12/20 09:16 Ascorbic Acid (Vitamin C) 250 mg DAILY GT 05/28/20 09:00 06/27/20 08:59 06/12/20 09:16 Cefepime HCl 1 gm/ Dextrose 55 ml @ 110 mls/hr EVERY 12 HOURS IVPB 06/10/20 21:00 06/17/20 20:59 06/12/20 09:16 Clonidine HCl (Catapres Tab) 0.1 mg Q4H PRN ORAL for sbp>150 06/03/20 09:00 09/01/20 08:59 06/11/20 05:49 Dextrose (Dextrose 50%) 25 ml Q30M PRN IV Hypoglycemia 05/26/20 07:30 08/24/20 07:29 Dextrose (Dextrose 50%) 50 ml Q30M PRN IV Hypoglycemia 05/26/20 07:30 08/24/20 07:29 Furosemide (Lasix) 40 mg DAILY IV 06/11/20 09:00 07/11/20 08:59 06/12/20 09:17 Insulin Aspart (NovoLOG) Q6HR SUBQ 05/26/20 12:00 08/24/20 11:59 06/12/20 12:22 Insulin Detemir (Levemir) 20 units EVERY 12 HOURS SUBQ 06/11/20 21:00 09/09/20 20:59 06/12/20 09:18 Isosorbide Dinitrate (Isordil) 20 mg THREE TIMES A DAY GT 06/02/20 13:00 07/02/20 12:59 06/12/20 12:21 Lisinopril (ZestriL) 20 mg DAILY GT 06/12/20 09:00 07/12/20 08:59 06/12/20 09:16 Metoprolol Tartrate (Lopressor) 50 mg EVERY 8 HOURS GT 05/28/20 22:00 08/26/20 21:59 06/12/20 06:24 Pantoprazole (Protonix) 40 mg DAILY IVP 05/26/20 09:00 06/25/20 08:59 06/12/20 09:17 Vancomycin HCl (Vanco pharmacy to dose) 1 ea DAILY PRN MISC Per rx protocol 06/10/20 14:30 07/10/20 14:29 Vancomycin/Sodium Chloride 275 ml @ 137.5 mls/ hr Q24H IVPB 06/12/20 12:00 06/17/20 11:59 06/12/20 12:21 Assessment/Plan Assessment/Plan IMPRESSION leukocytosis sepsis Afib, chronic encephalopathy trach respiratory failure elevated troponin anemia bacteremia- staph fevers better hypertension osteo PLAN CT with osteo ESR elevated respiratory care snf meds noted suction monitor cultures eliquis as is card follow up IV antibiotics and care ID follow up and recommendations for dc planning impression, plan, and exam edited and reviewed in detail care discussed with Fernie Ledezma MD Jun 12, 2020 12:59
--- NOTE | 2020-06-12 15:42 | Infectious Diseases Prog Note ---
Assessment/Plan Assessment/Plan A: 1. sepsis. 2. Acinetobacter pneumonia treated 3. Leukocytosis 4. Diabetes. 5. Hypertension. 6. CVA. 7. Dementia. 8. COVID-19 test was negative. 9. Positive blood cultures likely contamination 10 Infected sacral pressure ulcer PLAN: 1. Continue Cefepime & Vancomycin 2. Wound care Subjective ROS Limited/Unobtainable: Yes Allergies: Coded Allergies: No Known Allergies (Unverified , 05/15/20) Objective Last 24 Hour Vital Signs Date Time Temp Pulse Resp B/P (MAP) Pulse Ox O2 Delivery O2 Flow Rate FiO2 06/12/20 14:33 99 125/68 06/12/20 12:21 140/78 06/12/20 12:00 98.8 99 20 125/68 (87) 94 06/12/20 12:00 100 06/12/20 09:16 140/78 06/12/20 09:14 140/78 06/12/20 09:00 Trach Collar 5.0 06/12/20 08:00 98 06/12/20 08:00 98.7 101 18 140/78 (98) 94 06/12/20 07:00 96 T-Piece 5.0 28 06/12/20 06:24 96 128/73 06/12/20 04:00 96 06/12/20 04:00 98.1 96 24 128/73 (91) 98 06/12/20 01:12 97 T-Piece 5.0 28 06/12/20 00:00 97.9 95 24 147/74 (98) 97 06/12/20 00:00 94 06/11/20 22:39 88 126/55 06/11/20 21:00 Trach Collar 5.0 06/11/20 20:00 88 06/11/20 20:00 98.1 88 26 126/55 (78) 97 06/11/20 19:41 98 T-Piece 5.0 28 06/11/20 17:47 144/76 06/11/20 16:00 98.0 86 20 144/76 (98) 98 06/11/20 16:00 105 Height (Feet): 5 Height (Inches): 3.00 Weight (Pounds): 157 General Appearance: no acute distress HEENT: status post trach Respiratory/Chest: lungs clear, other - on T-bar Cardiovascular: normal rate Abdomen: soft, non tender, other - GT feeding Extremities: other - edema of R arm Neurologic/Psychiatric: unresponsiveness Laboratory Tests Test 06/11/20 20:12 06/12/20 00:52 06/12/20 02:50 06/12/20 09:13 POC Whole Blood Glucose 285 MG/DL (74-106) H 338 MG/DL (74-106) H Pending Vancomycin Level Trough 24.6 ug/mL (5.0-12.0) H Test 06/12/20 12:20 POC Whole Blood Glucose Pending Current Medications Medications (Trade) Dose Ordered Sig/Cayden Route PRN Reason Start Time Stop Time Status Last Admin Dose Admin Acetaminophen (Tylenol) 650 mg Q4H PRN GT Pain 05/26/20 07:45 06/25/20 07:44 06/06/20 12:14 Apixaban (Eliquis) 5 mg BID GT 05/26/20 09:00 08/24/20 08:59 06/12/20 09:16 Ascorbic Acid (Vitamin C) 250 mg DAILY GT 05/28/20 09:00 06/27/20 08:59 06/12/20 09:16 Cefepime HCl 1 gm/ Dextrose 55 ml @ 110 mls/hr EVERY 12 HOURS IVPB 06/10/20 21:00 06/17/20 20:59 06/12/20 09:16 Clonidine HCl (Catapres Tab) 0.1 mg Q4H PRN ORAL for sbp>150 06/03/20 09:00 09/01/20 08:59 06/11/20 05:49 Dextrose (Dextrose 50%) 25 ml Q30M PRN IV Hypoglycemia 05/26/20 07:30 08/24/20 07:29 Dextrose (Dextrose 50%) 50 ml Q30M PRN IV Hypoglycemia 05/26/20 07:30 08/24/20 07:29 Furosemide (Lasix) 40 mg DAILY IV 06/11/20 09:00 07/11/20 08:59 06/12/20 09:17 Insulin Aspart (NovoLOG) Q6HR SUBQ 05/26/20 12:00 08/24/20 11:59 06/12/20 12:22 Insulin Detemir (Levemir) 20 units EVERY 12 HOURS SUBQ 06/11/20 21:00 09/09/20 20:59 06/12/20 09:18 Isosorbide Dinitrate (Isordil) 20 mg THREE TIMES A DAY GT 06/02/20 13:00 07/02/20 12:59 06/12/20 12:21 Lisinopril (ZestriL) 20 mg DAILY GT 06/12/20 09:00 07/12/20 08:59 06/12/20 09:16 Metoprolol Tartrate (Lopressor) 50 mg EVERY 8 HOURS GT 05/28/20 22:00 08/26/20 21:59 06/12/20 14:33 Pantoprazole (Protonix) 40 mg DAILY IVP 05/26/20 09:00 06/25/20 08:59 06/12/20 09:17 Vancomycin HCl (Vanco pharmacy to dose) 1 ea DAILY PRN MISC Per rx protocol 06/10/20 14:30 07/10/20 14:29 Vancomycin/Sodium Chloride 275 ml @ 137.5 mls/ hr Q24H IVPB 06/12/20 12:00 06/17/20 11:59 06/12/20 12:21 Colby Rock MD Jun 12, 2020 15:42
[2020-06-12 16:00] VITALS: BP 120/66
--- NOTE | 2020-06-12 16:44 | Surgery Progress Note ---
Surgery Progress Note Subjective Procedure Performed Excisional debridement of sacral decubitus ulcer 10 cm x 10 cm x 4 cm deep down to bone Symptoms: improved, tolerating diet, passing flatus, BM Objective Last 24 Hour Vital Signs Date Time Temp Pulse Resp B/P (MAP) Pulse Ox O2 Delivery O2 Flow Rate FiO2 06/12/20 16:00 98.5 94 19 120/66 (84) 99 06/12/20 16:00 95 06/12/20 14:33 99 125/68 06/12/20 13:00 98 T-Piece 5.0 28 06/12/20 12:21 140/78 06/12/20 12:00 98.8 99 20 125/68 (87) 94 06/12/20 12:00 100 06/12/20 09:16 140/78 06/12/20 09:14 140/78 06/12/20 09:00 Trach Collar 5.0 06/12/20 08:00 98 06/12/20 08:00 98.7 101 18 140/78 (98) 94 06/12/20 07:00 96 T-Piece 5.0 28 06/12/20 06:24 96 128/73 06/12/20 04:00 96 06/12/20 04:00 98.1 96 24 128/73 (91) 98 06/12/20 01:12 97 T-Piece 5.0 28 06/12/20 00:00 97.9 95 24 147/74 (98) 97 06/12/20 00:00 94 06/11/20 22:39 88 126/55 06/11/20 21:00 Trach Collar 5.0 06/11/20 20:00 88 06/11/20 20:00 98.1 88 26 126/55 (78) 97 06/11/20 19:41 98 T-Piece 5.0 28 06/11/20 17:47 144/76 I&O Intake and Output 06/11/20 06/12/20 19:00 07:00 Intake Total 330.000 ml 50 ml Output Total 800 ml 50 ml Balance -470.000 ml 0 ml IV Total 330.000 ml Tube Feeding 50 ml Output Urine Total 800 ml 50 ml # Bowel Movements 2 Dressing: saturated Cardiovascular: RSR Respiratory: decreased breath sounds Abdomen: non-tender, present bowel sounds Extremities: no edema, no tenderness, no cyanosis Laboratory Tests Test 06/11/20 20:12 06/12/20 00:52 06/12/20 02:50 06/12/20 09:13 POC Whole Blood Glucose 285 MG/DL (74-106) H 338 MG/DL (74-106) H Pending Vancomycin Level Trough 24.6 ug/mL (5.0-12.0) H Test 06/12/20 12:20 POC Whole Blood Glucose Pending Assessment Post-op Diagnosis Stage IV sacral decubitus ulcer Plan Problems: (1) Anemia (2) Sepsis Assessment & Plan: 74-year-old female with medical comorbidities present with leukocytosis anemia abnormal labs hypoalbuminemia failure to thrive malnutrition worsening decubitus ulcer admitted further care and management was prior on vancomycin now on IV antibiotics admitted and under monitoring. Full evaluation does not at the bedside and evaluation performed. Trach stable PEG tube stable skin deteriorating per her turgor worsening decubitus ulcer malnutrition continue tube feeds as tolerated continue antibiotics wounds unlikely etiology of patient's sepsis we will monitor and follow with recommendations trend labs thank you for letting participate patient's care improving DAILY ESTIMATED NEEDS: Needs based on Wound, DM/ 57kg abw 25-30 kcals/kg 2636-0803 total kcals 1.25-1.8 g protein/kg 71-103 g total protein 20-25 mL/kg 4532-7076 total fluid mLs NUTRITION DIAGNOSIS: * Increased kcal/prot needs R/T wound healing as evidenced by pt admiteed w/ unstageable sacral wound, refer to full wound care eval. * Swallowing difficulty R/T dysphagia, respiratory status as evidenced by pt on T-collar, PEG dep. CURRENT TF:Glucerna 1.2 @ 50ml/hr x 24 hrs ENTERAL NUTRITION RECOMMENDATIONS: Glucerna 1.2 @ 50ml/hr x 24 hrs to provide 1200ml, 1440kcal, 72g, 966ml free water * Maintain current TF * HOB over 30 degrees/ water flush per MD ADDITIONAL RECOMMENDATIONS: * Calibrated bedscale wt -w/ added p200 mattress + pump * Wound healing: TF @ goal will provide 100% RDI Continue Vit C 250mg QD + add Endy BID via PEG * Monitor lytes closely w/ Lasix, replete as needed * Monitor BGs, rec increasing Levemir (POC glu 373 310) . (3) Elevated troponin (4) Pneumonia (5) Encounter for generalized patient complaints (6) Decubitus skin ulcer Assessment & Plan: Patient presented on admission with an Unstageable Sacral Pressure injury(L)9.8cm x (W)6.7cm. Base of wound is 80% necrotic ,20% mixed slough ,beefy red. Small amt serous exudate. Mild odor noted. Borders are macerated with surrounding maroon and indurated borders. MASD noted to Mons-pubis outer aspects of R and L buttocks. Perineum and bilat ischial tuberosities. Affected areas mentioned are erythematous, macerated with scattered satellite lesions. Non-Blanchable erythema without induration or fluctuance R and L Heels. Skin assessed under tracheal collar and no evidence of skin breakdown noted. Assessed pt and necrotic base of Sacral wound crosshatched by Md. Unstageable Sacral Pressure Injury (L)9.8cm x (W)7cm. 90% dry necrotic cap ,10% lj borders. Edges are adherent to base of wound. Periwound is pink and dry. No odor or exudate noted. Small external haemorrhoid with small amt bleeding noted. R and L heels are both blanchable. No new skin concerns noted. Wound Tx are effective and continued as ordered . All wound prevention protocols continued as care-planned. Pt has an APM/DANIEL Mattress overlay and is being positioned as per tolerance and within protocols. s/p excisional debridement of stage 4 decubitus ulcer Tx.Plan: Cleanse Sacral wound with Saline. Apply TheraHoney. Apply Moisture Barrier Paste periwound. Cover with Optifoam Drsg. Change Daily and prn. Apply Moisture Barrier Paste to Mons Pubis, Perineum and buttocks with each Incontinence care. Apply Cavilon Skin Barrier to Both heels and Malleoli. Cover each site with Optifoam Drsg. Change every 7 days and prn. Reposition at least every 2hours or as tolerated. Off-load heels with Pillow. Reposition at least every 2hours or as tolerated. APM/DANIEL mattress overlay. Adrian Gar Jun 12, 2020 16:44
[2020-06-12 20:00] VITALS: BP 139/58
--- NOTE | 2020-06-12 23:55 | Cardiology Progress Note ---
Subjective DATE OF SERVICE: Jun 12, 2020 On T-collar BP range elevated at times, but improving Glucose trend up Sputum culture A.baumanni Monitor: Sinus with PAFIb and short runs of aberrancy. CT scan: Pulmonary edema and pleural effusion Wound with abscess or gas forming organisms Objective Last 24 Hour Vital Signs Date Time Temp Pulse Resp B/P (MAP) Pulse Ox O2 Delivery O2 Flow Rate FiO2 06/12/20 21:18 98 114/54 06/12/20 21:00 Trach Collar 5.0 06/12/20 20:00 98.0 65 18 139/58 (85) 98 06/12/20 20:00 97 06/12/20 19:45 98 T-Piece 5.0 28 06/12/20 17:29 120/66 06/12/20 16:00 98.5 94 19 120/66 (84) 99 06/12/20 16:00 95 06/12/20 14:33 99 125/68 06/12/20 13:00 98 T-Piece 5.0 28 06/12/20 12:21 140/78 06/12/20 12:00 98.8 99 20 125/68 (87) 94 06/12/20 12:00 100 06/12/20 09:16 140/78 06/12/20 09:14 140/78 06/12/20 09:00 Trach Collar 5.0 06/12/20 08:00 98 06/12/20 08:00 98.7 101 18 140/78 (98) 94 06/12/20 07:00 96 T-Piece 5.0 28 06/12/20 06:24 96 128/73 06/12/20 04:00 96 06/12/20 04:00 98.1 96 24 128/73 (91) 98 06/12/20 01:12 97 T-Piece 5.0 28 06/12/20 00:00 97.9 95 24 147/74 (98) 97 06/12/20 00:00 94 ROS: no change from my assessment of 05/25/20 - remains unobtainable from patient HEENT: normal ENT inspection, Thick Trach secretions RHYTHM: NSR, PACs LUNGS: diminished breath sounds - left, bilateral rhonchi CARDIAC: normal rate, regular rhythm, normal S1 and S2, arrhythmia ABDOMEN: normal bowel sounds, non tender, soft, G-Tube intact EXTREMITIES: trace edema, other - sacral decub. noncommunicative Laboratory Tests Test 06/12/20 00:52 06/12/20 02:50 06/12/20 09:13 06/12/20 12:20 POC Whole Blood Glucose 338 MG/DL (74-106) H Pending Pending Vancomycin Level Trough 24.6 ug/mL (5.0-12.0) H Test 06/12/20 17:02 06/12/20 23:46 POC Whole Blood Glucose 300 MG/DL (74-106) H 260 MG/DL (74-106) H Assessment/Plan Assessment/Plan Healthcare associated PNA Left pleural effusion Acute myocardial ischemia with possible NSTE myocardial infarction Sepsis Respiratory failure Hypertension/HHD with elev BP Parox AFib Conduction system disease with bifasc block Ac/chr diastolic CHF Low lipid parameters NSVT IRDM with hyperglycemia still Hypomagnesemia Contaminant in positive blood cultures Resp Rx Off antibiotics per ID picker tender helper Advance to IV diuretic dose and trend BNP; monitor/replace lytes as needed. Full anticoagulation Titrate CV regimen based on clinical parameters - continue current antianginal regimen, including beta pietro; ACEi advanced. No need for statin Titrate insulin rx - advancing levemir. Wound care Consider thorocentesis John Heard MD Jun 12, 2020 23:55
[2020-06-13] VITALS: BP 121/68
[2020-06-13 04:00] VITALS: BP 113/68
[2020-06-13] MEDS: Metoprolol Tartrate 50mg tab GT SCH ×3 (05:47→21:43)
[2020-06-13] MEDS: NovoLOG Insulin Flexpen SUBQ SCH ×3 (05:47→17:44)
[2020-06-13 05:52] LABS: HEMATOCRIT 28.4 % (37.0-47.0); HEMOGLOBIN 8.7 G/DL (12.0-16.0); MEAN CORPUSCULAR VOLUME 76 FL (80-99); PLATELET COUNT 454 K/UL (150-450); RED BLOOD COUNT 3.76 M/UL (4.20-5.40); RED CELL DISTRIBUTION WIDTH 15.7 % (11.6-14.8)
[2020-06-13 06:02] LABS: WHITE BLOOD COUNT 43.4 K/UL (4.8-10.8)
[2020-06-13 06:18] LABS: ALBUMIN/GLOBULIN RATIO 0.4 (1.0-2.7); BILIRUBIN,TOTAL 0.7 MG/DL (0.2-1.0); CALCIUM 9.2 MG/DL (8.5-10.1); CREATININE 3.3 MG/DL (0.55-1.30)
[2020-06-13 06:20] LABS: POTASSIUM 6.1 MMOL/L (3.5-5.1)
[2020-06-13] MEDS ORDERED: Sodium Polystyrene Sulfonate 15gm Powder ORAL SCH (06:45)
[2020-06-13 08:00] VITALS: BP 102/69
--- NOTE | 2020-06-13 08:22 | Pulmonology Progress Note ---
Subjective ROS Limited/Unobtainable: Yes Constitutional: Denies: fever Allergies: Coded Allergies: No Known Allergies (Unverified , 05/15/20) Subjective care noted wbc much worse ID notified elevated ESR and osteo Objective Last 24 Hour Vital Signs Date Time Temp Pulse Resp B/P (MAP) Pulse Ox O2 Delivery O2 Flow Rate FiO2 06/13/20 05:47 101 113/68 06/13/20 04:00 100 06/13/20 04:00 98.6 101 24 113/68 (83) 98 06/13/20 01:19 98 T-Piece 5.0 28 06/13/20 00:00 99.8 61 24 121/68 (85) 98 06/13/20 00:00 99 06/12/20 21:18 98 114/54 06/12/20 21:00 Trach Collar 5.0 06/12/20 20:00 98.0 65 18 139/58 (85) 98 06/12/20 20:00 97 06/12/20 19:45 98 T-Piece 5.0 28 06/12/20 17:29 120/66 06/12/20 16:00 98.5 94 19 120/66 (84) 99 06/12/20 16:00 95 06/12/20 14:33 99 125/68 06/12/20 13:00 98 T-Piece 5.0 28 06/12/20 12:21 140/78 06/12/20 12:00 98.8 99 20 125/68 (87) 94 06/12/20 12:00 100 06/12/20 09:16 140/78 06/12/20 09:14 140/78 06/12/20 09:00 Trach Collar 5.0 Intake and Output 06/12/20 06/13/20 19:00 07:00 Output Total 500 ml 500 ml Balance -500 ml -500 ml Output Urine Total 500 ml 500 ml Objective WDWN NAD trach reduced breath sounds bilaterally without rhonchi [id number] without MRG NABS nontender GT no CCE withdrawn Laboratory Tests 06/12/20 09:13: POC Whole Blood Glucose [Pending] 06/12/20 12:20: POC Whole Blood Glucose [Pending] 06/12/20 17:02: POC Whole Blood Glucose 300H 06/12/20 23:46: POC Whole Blood Glucose 260H 06/13/20 05:34: POC Whole Blood Glucose 241H 06/13/20 05:35: White Blood Count 43.4*H, Red Blood Count 3.76L, Hemoglobin 8.7L, Hematocrit 28.4L, Mean Corpuscular Volume 76L, Mean Corpuscular Hemoglobin 23.3L, Mean Corpuscular Hemoglobin Concent 30.7L, Red Cell Distribution Width 15.7H, Platelet Count 454H, Mean Platelet Volume 8.8, Neutrophils (%) (Auto) , Lymphocytes (%) (Auto) , Monocytes (%) (Auto) , Eosinophils (%) (Auto) , Basophils (%) (Auto) , Neutrophils % (Manual) [Pending], Lymphocytes % (Manual) [Pending], Platelet Estimate [Pending], Platelet Morphology [Pending], Sodium Level 133L, Potassium Level 6.1*H, Chloride Level 97L, Carbon Dioxide Level 22, Anion Gap 15, Blood Urea Nitrogen 78H, Creatinine 3.3H, Estimat Glomerular Filtration Rate 13.7, Glucose Level 248H, Calcium Level 9.2, Magnesium Level 2.0 , Total Bilirubin 0.7, Aspartate Amino Transf (AST/SGOT) 8L, Alanine Aminotransferase (ALT/SGPT) 10L, Alkaline Phosphatase 98, Pro-B-Type Natriuretic Peptide 55489X, Total Protein 7.4, Albumin 2.0L, Globulin 5.4, Albumin/Globulin Ratio 0.4L Current Medications Medications (Trade) Dose Ordered Sig/Cayden Route PRN Reason Start Time Stop Time Status Last Admin Dose Admin Acetaminophen (Tylenol) 650 mg Q4H PRN GT Pain 05/26/20 07:45 06/25/20 07:44 06/06/20 12:14 Apixaban (Eliquis) 5 mg BID GT 05/26/20 09:00 08/24/20 08:59 06/12/20 17:29 Ascorbic Acid (Vitamin C) 250 mg DAILY GT 05/28/20 09:00 06/27/20 08:59 06/12/20 09:16 Cefepime HCl 1 gm/ Dextrose 55 ml @ 110 mls/hr EVERY 12 HOURS IVPB 06/10/20 21:00 06/17/20 20:59 06/12/20 21:17 Clonidine HCl (Catapres Tab) 0.1 mg Q4H PRN ORAL for sbp>150 06/03/20 09:00 09/01/20 08:59 06/11/20 05:49 Dextrose (Dextrose 50%) 25 ml Q30M PRN IV Hypoglycemia 05/26/20 07:30 08/24/20 07:29 Dextrose (Dextrose 50%) 50 ml Q30M PRN IV Hypoglycemia 05/26/20 07:30 08/24/20 07:29 Furosemide (Lasix) 40 mg DAILY IV 06/11/20 09:00 07/11/20 08:59 06/12/20 09:17 Insulin Aspart (NovoLOG) Q6HR SUBQ 05/26/20 12:00 08/24/20 11:59 06/13/20 05:47 Insulin Detemir (Levemir) 20 units EVERY 12 HOURS SUBQ 06/11/20 21:00 09/09/20 20:59 06/12/20 21:21 Isosorbide Dinitrate (Isordil) 20 mg THREE TIMES A DAY GT 06/02/20 13:00 07/02/20 12:59 06/12/20 17:29 Lisinopril (ZestriL) 20 mg DAILY GT 06/12/20 09:00 07/12/20 08:59 06/12/20 09:16 Metoprolol Tartrate (Lopressor) 50 mg EVERY 8 HOURS GT 05/28/20 22:00 08/26/20 21:59 06/13/20 05:47 Pantoprazole (Protonix) 40 mg DAILY IVP 05/26/20 09:00 06/25/20 08:59 06/12/20 09:17 Sodium Polystyrene Sulfonate (Kayexalate) 30 gm ONCE ORAL 06/13/20 06:45 06/13/20 08:45 Vancomycin HCl (Vanco pharmacy to dose) 1 ea DAILY PRN MISC Per rx protocol 06/10/20 14:30 07/10/20 14:29 Vancomycin/Sodium Chloride 275 ml @ 137.5 mls/ hr Q24H IVPB 06/12/20 12:00 06/17/20 11:59 06/12/20 12:21 Assessment/Plan Assessment/Plan IMPRESSION leukocytosis, worse Afib, chronic encephalopathy trach respiratory failure elevated troponin anemia bacteremia- staph fevers better hypertension osteo PLAN CT with osteo ESR elevated wbc change; defer to ID respiratory care snf meds noted suction monitor cultures eliquis as is card follow up IV antibiotics and care ID follow up and recommendations - not stable for dc impression, plan, and exam edited and reviewed in detail care discussed with Fernie Ledezma MD Jun 13, 2020 08:22
[2020-06-13] MEDS: Lisinopril 10mg tab GT SCH (09:00)
[2020-06-13] MEDS: Eliquis 5mg tablet GT SCH ×2 (09:05→17:46)
[2020-06-13] MEDS: Ascorbic Acid 500mg tab GT SCH (09:05)
[2020-06-13] MEDS: Cefepime 1gm in D5W 55ml IVPB SCH ×2 (09:07→21:00)
[2020-06-13] MEDS: Pantoprazole Inj IVP SCH (09:07)
[2020-06-13] MEDS: Levemir Flexpen SUBQ SCH ×2 (09:15→21:19)
--- NOTE | 2020-06-13 11:18 | Infectious Diseases Prog Note ---
Assessment/Plan Assessment/Plan antibiotics : none A 1. aspiration pneumonia with acenitobacter s/p rx 2. + blood cultures with coag neg staph likely contaminated 3. leucocytosis increased 4. diabetes mellitus 5. hypertension 6. CVA 7. dementia 8. coccygeal osteomyelitis s/p debridement 9. renal failure P 1. continue cefepime 2. d/c iv vancomycin 3. start linezolid 4. will follow up cultures Subjective ROS Limited/Unobtainable: Yes Allergies: Coded Allergies: No Known Allergies (Unverified , 05/15/20) Objective Last 24 Hour Vital Signs Date Time Temp Pulse Resp B/P (MAP) Pulse Ox O2 Delivery O2 Flow Rate FiO2 06/13/20 09:00 102/69 06/13/20 09:00 102/69 06/13/20 09:00 Trach Collar 5.0 06/13/20 08:00 76 06/13/20 08:00 98.4 99 22 102/69 (80) 100 06/13/20 07:41 98 T-Piece 5.0 28 06/13/20 05:47 101 113/68 06/13/20 04:00 100 06/13/20 04:00 98.6 101 24 113/68 (83) 98 06/13/20 01:19 98 T-Piece 5.0 28 06/13/20 00:00 99.8 61 24 121/68 (85) 98 06/13/20 00:00 99 06/12/20 21:18 98 114/54 06/12/20 21:00 Trach Collar 5.0 06/12/20 20:00 98.0 65 18 139/58 (85) 98 06/12/20 20:00 97 06/12/20 19:45 98 T-Piece 5.0 28 06/12/20 17:29 120/66 06/12/20 16:00 98.5 94 19 120/66 (84) 99 06/12/20 16:00 95 06/12/20 14:33 99 125/68 06/12/20 13:00 98 T-Piece 5.0 28 06/12/20 12:21 140/78 06/12/20 12:00 98.8 99 20 125/68 (87) 94 06/12/20 12:00 100 Height (Feet): 5 Height (Inches): 3.00 Weight (Pounds): 157 HEENT: status post trach Respiratory/Chest: lungs clear Cardiovascular: normal rate, regular rhythm, no gallop/murmur Abdomen: soft, non tender, other - Gt Extremities: no edema Laboratory Tests Test 06/12/20 12:20 06/12/20 17:02 06/12/20 23:46 06/13/20 05:34 POC Whole Blood Glucose Pending 300 MG/DL (74-106) H 260 MG/DL (74-106) H 241 MG/DL (74-106) H Test 06/13/20 05:35 White Blood Count 43.4 K/UL (4.8-10.8) *H Red Blood Count 3.76 M/UL (4.20-5.40) L Hemoglobin 8.7 G/DL (12.0-16.0) L Hematocrit 28.4 % (37.0-47.0) L Mean Corpuscular Volume 76 FL (80-99) L Mean Corpuscular Hemoglobin 23.3 PG (27.0-31.0) L Mean Corpuscular Hemoglobin Concent 30.7 G/DL (32.0-36.0) L Red Cell Distribution Width 15.7 % (11.6-14.8) H Platelet Count 454 K/UL (150-450) H Mean Platelet Volume 8.8 FL (6.5-10.1) Neutrophils (%) (Auto) % (45.0-75.0) Lymphocytes (%) (Auto) % (20.0-45.0) Monocytes (%) (Auto) % (1.0-10.0) Eosinophils (%) (Auto) % (0.0-3.0) Basophils (%) (Auto) % (0.0-2.0) Differential Total Cells Counted 100 Neutrophils % (Manual) 92 % (45-75) H Lymphocytes % (Manual) 3 % (20-45) L Monocytes % (Manual) 5 % (1-10) Eosinophils % (Manual) 0 % (0-3) Basophils % (Manual) 0 % (0-2) Band Neutrophils 0 % (0-8) Platelet Estimate Adequate Platelet Morphology Normal Hypochromasia 2+ Anisocytosis 1+ Microcytosis 1+ Sodium Level 133 MMOL/L (136-145) L Potassium Level 6.1 MMOL/L (3.5-5.1) *H Chloride Level 97 MMOL/L (98-107) L Carbon Dioxide Level 22 MMOL/L (21-32) Anion Gap 15 mmol/L (5-15) Blood Urea Nitrogen 78 mg/dL (7-18) H Creatinine 3.3 MG/DL (0.55-1.30) H Estimat Glomerular Filtration Rate 13.7 mL/min (>60) Glucose Level 248 MG/DL (74-106) H Calcium Level 9.2 MG/DL (8.5-10.1) Magnesium Level 2.0 MG/DL (1.8-2.4) Total Bilirubin 0.7 MG/DL (0.2-1.0) Aspartate Amino Transf (AST/SGOT) 8 U/L (15-37) L Alanine Aminotransferase (ALT/SGPT) 10 U/L (12-78) L Alkaline Phosphatase 98 U/L (46-116) Pro-B-Type Natriuretic Peptide 69266 pg/mL (0-125) H Total Protein 7.4 G/DL (6.4-8.2) Albumin 2.0 G/DL (3.4-5.0) L Globulin 5.4 g/dL Albumin/Globulin Ratio 0.4 (1.0-2.7) L Current Medications Medications (Trade) Dose Ordered Sig/Cayden Route PRN Reason Start Time Stop Time Status Last Admin Dose Admin Acetaminophen (Tylenol) 650 mg Q4H PRN GT Pain 05/26/20 07:45 06/25/20 07:44 06/06/20 12:14 Apixaban (Eliquis) 5 mg BID GT 05/26/20 09:00 08/24/20 08:59 06/13/20 09:05 Ascorbic Acid (Vitamin C) 250 mg DAILY GT 05/28/20 09:00 06/27/20 08:59 06/13/20 09:05 Cefepime HCl 1 gm/ Dextrose 55 ml @ 110 mls/hr EVERY 12 HOURS IVPB 06/10/20 21:00 06/17/20 20:59 06/13/20 09:07 Clonidine HCl (Catapres Tab) 0.1 mg Q4H PRN ORAL for sbp>150 06/03/20 09:00 09/01/20 08:59 06/11/20 05:49 Dextrose (Dextrose 50%) 25 ml Q30M PRN IV Hypoglycemia 05/26/20 07:30 08/24/20 07:29 Dextrose (Dextrose 50%) 50 ml Q30M PRN IV Hypoglycemia 05/26/20 07:30 08/24/20 07:29 Furosemide (Lasix) 40 mg DAILY IV 06/11/20 09:00 07/11/20 08:59 06/13/20 09:07 Insulin Aspart (NovoLOG) Q6HR SUBQ 05/26/20 12:00 08/24/20 11:59 06/13/20 05:47 Insulin Detemir (Levemir) 20 units EVERY 12 HOURS SUBQ 06/11/20 21:00 09/09/20 20:59 06/13/20 09:15 Isosorbide Dinitrate (Isordil) 20 mg THREE TIMES A DAY GT 06/02/20 13:00 07/02/20 12:59 06/12/20 17:29 Lisinopril (ZestriL) 20 mg DAILY GT 06/12/20 09:00 07/12/20 08:59 06/12/20 09:16 Metoprolol Tartrate (Lopressor) 50 mg EVERY 8 HOURS GT 05/28/20 22:00 08/26/20 21:59 06/13/20 05:47 Pantoprazole (Protonix) 40 mg DAILY IVP 05/26/20 09:00 06/25/20 08:59 06/13/20 09:07 Vancomycin HCl (Vanco pharmacy to dose) 1 ea DAILY PRN MISC Per rx protocol 06/10/20 14:30 07/10/20 14:29 Vancomycin/Sodium Chloride 275 ml @ 137.5 mls/ hr Q24H IVPB 06/12/20 12:00 06/17/20 11:59 06/12/20 12:21 Mina Salamanca MD Jun 13, 2020 11:18
[2020-06-13 12:00] VITALS: BP 121/60
[2020-06-13] MEDS: Acetaminophen 650mg/20.3ml GT PRN ×2 (12:12→17:57)
[2020-06-13 16:00] VITALS: BP 96/48
--- NOTE | 2020-06-13 16:23 | Surgery Progress Note ---
Surgery Progress Note Subjective Procedure Performed Excisional debridement of sacral decubitus ulcer 10 cm x 10 cm x 4 cm deep down to bone Additional Comments acute severe leukocytosis not stable for d/c abx changed as per ID wound stable. improved since debridement Objective Last 24 Hour Vital Signs Date Time Temp Pulse Resp B/P (MAP) Pulse Ox O2 Delivery O2 Flow Rate FiO2 06/13/20 14:53 121/60 06/13/20 14:53 101 121/60 06/13/20 12:42 101.3 06/13/20 12:31 98 T-Piece 5.0 28 06/13/20 12:00 101 06/13/20 12:00 101.3 101 24 121/60 (80) 99 06/13/20 09:00 102/69 06/13/20 09:00 102/69 06/13/20 09:00 Trach Collar 5.0 06/13/20 08:00 76 06/13/20 08:00 98.4 99 22 102/69 (80) 100 06/13/20 07:41 98 T-Piece 5.0 28 06/13/20 05:47 101 113/68 06/13/20 04:00 100 06/13/20 04:00 98.6 101 24 113/68 (83) 98 06/13/20 01:19 98 T-Piece 5.0 28 06/13/20 00:00 99.8 61 24 121/68 (85) 98 06/13/20 00:00 99 06/12/20 21:18 98 114/54 06/12/20 21:00 Trach Collar 5.0 06/12/20 20:00 98.0 65 18 139/58 (85) 98 06/12/20 20:00 97 06/12/20 19:45 98 T-Piece 5.0 28 06/12/20 17:29 120/66 I&O Intake and Output 06/12/20 06/13/20 19:00 07:00 Output Total 500 ml 500 ml Balance -500 ml -500 ml Output Urine Total 500 ml 500 ml Dressing: saturated Cardiovascular: RSR Respiratory: decreased breath sounds Abdomen: soft, non-tender, present bowel sounds Extremities: no tenderness, no cyanosis Laboratory Tests Test 06/12/20 17:02 06/12/20 23:46 06/13/20 05:34 06/13/20 05:35 POC Whole Blood Glucose 300 MG/DL (74-106) H 260 MG/DL (74-106) H 241 MG/DL (74-106) H White Blood Count 43.4 K/UL (4.8-10.8) *H Red Blood Count 3.76 M/UL (4.20-5.40) L Hemoglobin 8.7 G/DL (12.0-16.0) L Hematocrit 28.4 % (37.0-47.0) L Mean Corpuscular Volume 76 FL (80-99) L Mean Corpuscular Hemoglobin 23.3 PG (27.0-31.0) L Mean Corpuscular Hemoglobin Concent 30.7 G/DL (32.0-36.0) L Red Cell Distribution Width 15.7 % (11.6-14.8) H Platelet Count 454 K/UL (150-450) H Mean Platelet Volume 8.8 FL (6.5-10.1) Neutrophils (%) (Auto) % (45.0-75.0) Lymphocytes (%) (Auto) % (20.0-45.0) Monocytes (%) (Auto) % (1.0-10.0) Eosinophils (%) (Auto) % (0.0-3.0) Basophils (%) (Auto) % (0.0-2.0) Differential Total Cells Counted 100 Neutrophils % (Manual) 92 % (45-75) H Lymphocytes % (Manual) 3 % (20-45) L Monocytes % (Manual) 5 % (1-10) Eosinophils % (Manual) 0 % (0-3) Basophils % (Manual) 0 % (0-2) Band Neutrophils 0 % (0-8) Platelet Estimate Adequate Platelet Morphology Normal Hypochromasia 2+ Anisocytosis 1+ Microcytosis 1+ Sodium Level 133 MMOL/L (136-145) L Potassium Level 6.1 MMOL/L (3.5-5.1) *H Chloride Level 97 MMOL/L (98-107) L Carbon Dioxide Level 22 MMOL/L (21-32) Anion Gap 15 mmol/L (5-15) Blood Urea Nitrogen 78 mg/dL (7-18) H Creatinine 3.3 MG/DL (0.55-1.30) H Estimat Glomerular Filtration Rate 13.7 mL/min (>60) Glucose Level 248 MG/DL (74-106) H Calcium Level 9.2 MG/DL (8.5-10.1) Magnesium Level 2.0 MG/DL (1.8-2.4) Total Bilirubin 0.7 MG/DL (0.2-1.0) Aspartate Amino Transf (AST/SGOT) 8 U/L (15-37) L Alanine Aminotransferase (ALT/SGPT) 10 U/L (12-78) L Alkaline Phosphatase 98 U/L (46-116) Pro-B-Type Natriuretic Peptide 09505 pg/mL (0-125) H Total Protein 7.4 G/DL (6.4-8.2) Albumin 2.0 G/DL (3.4-5.0) L Globulin 5.4 g/dL Albumin/Globulin Ratio 0.4 (1.0-2.7) L Test 06/13/20 16:01 POC Whole Blood Glucose 250 MG/DL (74-106) H Assessment Post-op Diagnosis Stage IV sacral decubitus ulcer Plan Problems: (1) Anemia (2) Sepsis Assessment & Plan: 74-year-old female with medical comorbidities present with leukocytosis anemia abnormal labs hypoalbuminemia failure to thrive malnutrition worsening decubitus ulcer admitted further care and management was prior on vancomycin now on IV antibiotics admitted and under monitoring. Full evaluation does not at the bedside and evaluation performed. Trach stable PEG tube stable skin deteriorating per her turgor worsening decubitus ulcer malnutrition continue tube feeds as tolerated continue antibiotics wounds unlikely etiology of patient's sepsis we will monitor and follow with recommendations trend labs thank you for letting participate patient's care improving 06/13 acute severe leukocytosis abx changed wound improved since debridement will monitor DAILY ESTIMATED NEEDS: Needs based on Wound, DM/ 57kg abw 25-30 kcals/kg 0677-2238 total kcals 1.25-1.8 g protein/kg 71-103 g total protein 20-25 mL/kg 4388-5262 total fluid mLs NUTRITION DIAGNOSIS: * Increased kcal/prot needs R/T wound healing as evidenced by pt admiteed w/ unstageable sacral wound, refer to full wound care eval. * Swallowing difficulty R/T dysphagia, respiratory status as evidenced by pt on T-collar, PEG dep. CURRENT TF:Glucerna 1.2 @ 50ml/hr x 24 hrs ENTERAL NUTRITION RECOMMENDATIONS: Glucerna 1.2 @ 50ml/hr x 24 hrs to provide 1200ml, 1440kcal, 72g, 966ml free water * Maintain current TF * HOB over 30 degrees/ water flush per MD ADDITIONAL RECOMMENDATIONS: * Calibrated bedscale wt -w/ added p200 mattress + pump * Wound healing: TF @ goal will provide 100% RDI Continue Vit C 250mg QD + add Endy BID via PEG * Monitor lytes closely w/ Lasix, replete as needed * Monitor BGs, rec increasing Levemir (POC glu 373 310) . (3) Elevated troponin (4) Pneumonia (5) Encounter for generalized patient complaints (6) Decubitus skin ulcer Assessment & Plan: Patient presented on admission with an Unstageable Sacral Pressure injury(L)9.8cm x (W)6.7cm. Base of wound is 80% necrotic ,20% mixed slough ,beefy red. Small amt serous exudate. Mild odor noted. Borders are macerated with surrounding maroon and indurated borders. MASD noted to Mons-pubis outer aspects of R and L buttocks. Perineum and bilat ischial tuberosities. Affected areas mentioned are erythematous, macerated with scattered satellite lesions. Non-Blanchable erythema without induration or fluctuance R and L Heels. Skin assessed under tracheal collar and no evidence of skin breakdown noted. Assessed pt and necrotic base of Sacral wound crosshatched by Md. Unstageable Sacral Pressure Injury (L)9.8cm x (W)7cm. 90% dry necrotic cap ,10% lj borders. Edges are adherent to base of wound. Periwound is pink and dry. No odor or exudate noted. Small external haemorrhoid with small amt bleeding noted. R and L heels are both blanchable. No new skin concerns noted. Wound Tx are effective and continued as ordered . All wound prevention protocols continued as care-planned. Pt has an APM/DANIEL Mattress overlay and is being positioned as per tolerance and within protocols. s/p excisional debridement of stage 4 decubitus ulcer Tx.Plan: Cleanse Sacral wound with Saline. Apply TheraHoney. Apply Moisture Barrier Paste periwound. Cover with Optifoam Drsg. Change Daily and prn. Apply Moisture Barrier Paste to Mons Pubis, Perineum and buttocks with each Incontinence care. Apply Cavilon Skin Barrier to Both heels and Malleoli. Cover each site with Optifoam Drsg. Change every 7 days and prn. Reposition at least every 2hours or as tolerated. Off-load heels with Pillow. Reposition at least every 2hours or as tolerated. APM/DANIEL mattress overlay. Adrian Gar Jun 13, 2020 16:23
[2020-06-13 20:00] VITALS: BP 132/73
[2020-06-14] VITALS: BP 119/64
[2020-06-14] MEDS: NovoLOG Insulin Flexpen SUBQ SCH ×5 (00:14→23:54)
--- NOTE | 2020-06-14 01:20 | Cardiology Progress Note ---
Subjective DATE OF SERVICE: Jun 13, 2020 On T-collar Now with acute increase in renal parameters and potassium BP range elevated at times, but improving Glucose trend up Sputum culture A.baumanni Monitor: Sinus with PAFIb and short runs of aberrancy. CT scan: Pulmonary edema and pleural effusion Wound with abscess or gas forming organisms Objective Last 24 Hour Vital Signs Date Time Temp Pulse Resp B/P (MAP) Pulse Ox O2 Delivery O2 Flow Rate FiO2 06/14/20 01:15 98 T-Piece 5.0 28 06/14/20 00:00 96 06/14/20 00:00 99.3 68 18 119/64 (82) 98 06/13/20 21:43 66 115/56 06/13/20 21:20 97 T-Piece 5.0 28 06/13/20 21:00 Trach Collar 5.0 06/13/20 20:00 98 06/13/20 20:00 99.9 93 18 132/73 (92) 95 06/13/20 18:27 101.3 06/13/20 17:46 121/60 06/13/20 16:00 99 06/13/20 16:00 101.3 100 24 96/48 (64) 98 06/13/20 14:53 121/60 06/13/20 14:53 101 121/60 06/13/20 12:31 98 T-Piece 5.0 28 06/13/20 12:00 101 06/13/20 12:00 101.3 101 24 121/60 (80) 99 06/13/20 09:00 102/69 06/13/20 09:00 102/69 06/13/20 09:00 Trach Collar 5.0 06/13/20 08:00 76 06/13/20 08:00 98.4 99 22 102/69 (80) 100 06/13/20 07:41 98 T-Piece 5.0 28 06/13/20 05:47 101 113/68 06/13/20 04:00 100 06/13/20 04:00 98.6 101 24 113/68 (83) 98 06/13/20 01:19 98 T-Piece 5.0 28 ROS: no change from my assessment of 05/25/20 - remains unobtainable from patient HEENT: normal ENT inspection, Thin Trach secretions RHYTHM: NSR, PACs LUNGS: diminished breath sounds - left, bilateral rhonchi CARDIAC: normal rate, regular rhythm, normal S1 and S2, arrhythmia ABDOMEN: normal bowel sounds, non tender, soft, G-Tube intact EXTREMITIES: trace edema, other - sacral decub. noncommunicative Laboratory Tests Test 06/13/20 05:34 06/13/20 05:35 06/13/20 16:01 06/13/20 20:58 POC Whole Blood Glucose 241 MG/DL (74-106) H 250 MG/DL (74-106) H 256 MG/DL (74-106) H White Blood Count 43.4 K/UL (4.8-10.8) *H Red Blood Count 3.76 M/UL (4.20-5.40) L Hemoglobin 8.7 G/DL (12.0-16.0) L Hematocrit 28.4 % (37.0-47.0) L Mean Corpuscular Volume 76 FL (80-99) L Mean Corpuscular Hemoglobin 23.3 PG (27.0-31.0) L Mean Corpuscular Hemoglobin Concent 30.7 G/DL (32.0-36.0) L Red Cell Distribution Width 15.7 % (11.6-14.8) H Platelet Count 454 K/UL (150-450) H Mean Platelet Volume 8.8 FL (6.5-10.1) Neutrophils (%) (Auto) % (45.0-75.0) Lymphocytes (%) (Auto) % (20.0-45.0) Monocytes (%) (Auto) % (1.0-10.0) Eosinophils (%) (Auto) % (0.0-3.0) Basophils (%) (Auto) % (0.0-2.0) Differential Total Cells Counted 100 Neutrophils % (Manual) 92 % (45-75) H Lymphocytes % (Manual) 3 % (20-45) L Monocytes % (Manual) 5 % (1-10) Eosinophils % (Manual) 0 % (0-3) Basophils % (Manual) 0 % (0-2) Band Neutrophils 0 % (0-8) Platelet Estimate Adequate Platelet Morphology Normal Hypochromasia 2+ Anisocytosis 1+ Microcytosis 1+ Sodium Level 133 MMOL/L (136-145) L Potassium Level 6.1 MMOL/L (3.5-5.1) *H Chloride Level 97 MMOL/L (98-107) L Carbon Dioxide Level 22 MMOL/L (21-32) Anion Gap 15 mmol/L (5-15) Blood Urea Nitrogen 78 mg/dL (7-18) H Creatinine 3.3 MG/DL (0.55-1.30) H Estimat Glomerular Filtration Rate 13.7 mL/min (>60) Glucose Level 248 MG/DL (74-106) H Calcium Level 9.2 MG/DL (8.5-10.1) Magnesium Level 2.0 MG/DL (1.8-2.4) Total Bilirubin 0.7 MG/DL (0.2-1.0) Aspartate Amino Transf (AST/SGOT) 8 U/L (15-37) L Alanine Aminotransferase (ALT/SGPT) 10 U/L (12-78) L Alkaline Phosphatase 98 U/L (46-116) Pro-B-Type Natriuretic Peptide 99557 pg/mL (0-125) H Total Protein 7.4 G/DL (6.4-8.2) Albumin 2.0 G/DL (3.4-5.0) L Globulin 5.4 g/dL Albumin/Globulin Ratio 0.4 (1.0-2.7) L Assessment/Plan Assessment/Plan Healthcare associated PNA Left pleural effusion Acute myocardial ischemia with possible NSTE myocardial infarction Sepsis Respiratory failure Hypertension/HHD with elev BP Parox AFib 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 No need for statin Titrate insulin rx - advancing levemir. Wound care Dose adjust apixaban for renal fxJohn Alcala MD Jun 14, 2020 01:20
[2020-06-14 04:00] VITALS: BP 109/50
[2020-06-14] MEDS: Metoprolol Tartrate 50mg tab GT SCH ×3 (05:34→21:41)
[2020-06-14 08:00] VITALS: BP 99/43
[2020-06-14] MEDS: Levemir Flexpen SUBQ SCH ×2 (09:00→20:28)
[2020-06-14] MEDS ORDERED: Eliquis 5mg tablet GT SCH (09:00)
[2020-06-14] MEDS: Cefepime 1gm in D5W 55ml IVPB SCH (09:33)
[2020-06-14] MEDS: Ascorbic Acid 500mg tab GT SCH (09:34)
[2020-06-14] MEDS: Pantoprazole Inj IVP SCH (10:34)
--- NOTE | 2020-06-14 10:38 | Infectious Diseases Prog Note ---
Assessment/Plan Assessment/Plan antibiotics : linezolid, cefepime A 1. aspiration pneumonia with acenitobacter s/p rx 2. + blood cultures with coag neg staph likely contaminated 3. leucocytosis increased 4. diabetes mellitus 5. hypertension 6. CVA 7. dementia 8. coccygeal osteomyelitis s/p debridement 9. renal failure P 1. continue cefepime, linezolid 2. will follow up cultures Subjective ROS Limited/Unobtainable: Yes Allergies: Coded Allergies: No Known Allergies (Unverified , 05/15/20) Objective Last 24 Hour Vital Signs Date Time Temp Pulse Resp B/P (MAP) Pulse Ox O2 Delivery O2 Flow Rate FiO2 06/14/20 09:00 99/43 06/14/20 08:35 97 T-Piece 5.0 28 06/14/20 05:34 88 126/65 06/14/20 04:00 97 06/14/20 04:00 97.5 100 19 109/50 (69) 99 06/14/20 01:15 98 T-Piece 5.0 28 06/14/20 00:00 96 06/14/20 00:00 99.3 68 18 119/64 (82) 98 06/13/20 21:43 66 115/56 06/13/20 21:20 97 T-Piece 5.0 28 06/13/20 21:00 Trach Collar 5.0 06/13/20 20:00 98 06/13/20 20:00 99.9 93 18 132/73 (92) 95 06/13/20 18:27 101.3 06/13/20 17:46 121/60 06/13/20 16:00 99 06/13/20 16:00 101.3 100 24 96/48 (64) 98 06/13/20 14:53 121/60 06/13/20 14:53 101 121/60 06/13/20 12:31 98 T-Piece 5.0 28 06/13/20 12:00 101 06/13/20 12:00 101.3 101 24 121/60 (80) 99 Height (Feet): 5 Height (Inches): 3.00 Weight (Pounds): 157 HEENT: status post trach Respiratory/Chest: lungs clear Cardiovascular: normal rate, regular rhythm, no gallop/murmur Abdomen: soft, non tender, other - GT Extremities: no edema Laboratory Tests Test 06/13/20 11:38 06/13/20 16:01 06/13/20 20:58 06/13/20 23:33 POC Whole Blood Glucose 262 MG/DL (74-106) H 250 MG/DL (74-106) H 256 MG/DL (74-106) H 276 MG/DL (74-106) H Test 06/14/20 05:09 POC Whole Blood Glucose 240 MG/DL (74-106) H Current Medications Medications (Trade) Dose Ordered Sig/Cayden Route PRN Reason Start Time Stop Time Status Last Admin Dose Admin Acetaminophen (Tylenol) 650 mg Q4H PRN GT Pain 05/26/20 07:45 06/25/20 07:44 06/13/20 17:57 Ascorbic Acid (Vitamin C) 250 mg DAILY GT 05/28/20 09:00 06/27/20 08:59 06/14/20 09:34 Cefepime HCl 1 gm/ Dextrose 55 ml @ 110 mls/hr Q24H IVPB 06/15/20 09:00 06/22/20 08:59 Clonidine HCl (Catapres Tab) 0.1 mg Q4H PRN ORAL for sbp>150 06/03/20 09:00 09/01/20 08:59 06/11/20 05:49 Dextrose (Dextrose 50%) 25 ml Q30M PRN IV Hypoglycemia 05/26/20 07:30 08/24/20 07:29 Dextrose (Dextrose 50%) 50 ml Q30M PRN IV Hypoglycemia 05/26/20 07:30 08/24/20 07:29 Insulin Aspart (NovoLOG) Q6HR SUBQ 05/26/20 12:00 08/24/20 11:59 06/14/20 05:36 Insulin Detemir (Levemir) 20 units EVERY 12 HOURS SUBQ 06/11/20 21:00 09/09/20 20:59 06/14/20 09:00 Isosorbide Dinitrate (Isordil) 20 mg THREE TIMES A DAY GT 06/02/20 13:00 07/02/20 12:59 06/13/20 14:53 Linezolid (Zyvox) 600 mg EVERY 12 HOURS ORAL 06/13/20 11:30 06/18/20 11:29 06/14/20 09:33 Metoprolol Tartrate (Lopressor) 50 mg EVERY 8 HOURS GT 05/28/20 22:00 08/26/20 21:59 06/14/20 05:34 Pantoprazole (Protonix) 40 mg DAILY IVP 05/26/20 09:00 06/25/20 08:59 06/13/20 09:07 Mina Salamanca MD Jun 14, 2020 10:38
--- NOTE | 2020-06-14 11:18 | Pulmonology Progress Note ---
Subjective ROS Limited/Unobtainable: Yes Constitutional: Denies: fever Allergies: Coded Allergies: No Known Allergies (Unverified , 05/15/20) Subjective care noted hematuria this am elevated ESR and osteo Objective Last 24 Hour Vital Signs Date Time Temp Pulse Resp B/P (MAP) Pulse Ox O2 Delivery O2 Flow Rate FiO2 06/14/20 09:00 99/43 06/14/20 09:00 Trach Collar 5.0 06/14/20 08:35 97 T-Piece 5.0 28 06/14/20 08:00 103 06/14/20 08:00 97.5 103 24 99/43 (61) 98 06/14/20 05:34 88 126/65 06/14/20 04:00 97 06/14/20 04:00 97.5 100 19 109/50 (69) 99 06/14/20 01:15 98 T-Piece 5.0 28 06/14/20 00:00 96 06/14/20 00:00 99.3 68 18 119/64 (82) 98 06/13/20 21:43 66 115/56 06/13/20 21:20 97 T-Piece 5.0 28 06/13/20 21:00 Trach Collar 5.0 06/13/20 20:00 98 06/13/20 20:00 99.9 93 18 132/73 (92) 95 06/13/20 18:27 101.3 06/13/20 17:46 121/60 06/13/20 16:00 99 06/13/20 16:00 101.3 100 24 96/48 (64) 98 06/13/20 14:53 121/60 06/13/20 14:53 101 121/60 06/13/20 12:31 98 T-Piece 5.0 28 06/13/20 12:00 101 06/13/20 12:00 101.3 101 24 121/60 (80) 99 Intake and Output 06/13/20 06/14/20 19:00 07:00 Intake Total 50 ml Output Total 300 ml 500 ml Balance -300 ml -450 ml Tube Feeding 50 ml Output Urine Total 300 ml 500 ml Objective WDWN NAD trach reduced breath sounds bilaterally without rhonchi [id number] without MRG NABS nontender GT no CCE withdrawn Laboratory Tests 06/13/20 11:38: POC Whole Blood Glucose 262H 06/13/20 16:01: POC Whole Blood Glucose 250H 06/13/20 20:58: POC Whole Blood Glucose 256H 06/13/20 23:33: POC Whole Blood Glucose 276H 06/14/20 05:09: POC Whole Blood Glucose 240H Current Medications Medications (Trade) Dose Ordered Sig/Cayden Route PRN Reason Start Time Stop Time Status Last Admin Dose Admin Acetaminophen (Tylenol) 650 mg Q4H PRN GT Pain 05/26/20 07:45 06/25/20 07:44 06/13/20 17:57 Ascorbic Acid (Vitamin C) 250 mg DAILY GT 05/28/20 09:00 06/27/20 08:59 06/14/20 09:34 Cefepime HCl 1 gm/ Dextrose 55 ml @ 110 mls/hr Q24H IVPB 06/15/20 09:00 06/22/20 08:59 Clonidine HCl (Catapres Tab) 0.1 mg Q4H PRN ORAL for sbp>150 06/03/20 09:00 09/01/20 08:59 06/11/20 05:49 Dextrose (Dextrose 50%) 25 ml Q30M PRN IV Hypoglycemia 05/26/20 07:30 08/24/20 07:29 Dextrose (Dextrose 50%) 50 ml Q30M PRN IV Hypoglycemia 05/26/20 07:30 08/24/20 07:29 Insulin Aspart (NovoLOG) Q6HR SUBQ 05/26/20 12:00 08/24/20 11:59 06/14/20 05:36 Insulin Detemir (Levemir) 20 units EVERY 12 HOURS SUBQ 06/11/20 21:00 09/09/20 20:59 06/14/20 09:00 Isosorbide Dinitrate (Isordil) 20 mg THREE TIMES A DAY GT 06/02/20 13:00 07/02/20 12:59 06/13/20 14:53 Linezolid (Zyvox) 600 mg EVERY 12 HOURS ORAL 06/13/20 11:30 06/18/20 11:29 06/14/20 09:33 Metoprolol Tartrate (Lopressor) 50 mg EVERY 8 HOURS GT 05/28/20 22:00 08/26/20 21:59 06/14/20 05:34 Pantoprazole (Protonix) 40 mg DAILY IVP 05/26/20 09:00 06/25/20 08:59 06/14/20 10:34 Assessment/Plan Assessment/Plan IMPRESSION leukocytosis, worse Afib, chronic encephalopathy trach respiratory failure elevated troponin anemia bacteremia- staph fevers better hypertension osteo hematuria PLAN CT with osteo ESR elevated wbc change; defer to ID respiratory care snf meds noted suction monitor cultures eliquis hold for now and IRRIGATE SOTO card follow up IV antibiotics and care ID follow up and recommendations - not stable for dc impression, plan, and exam edited and reviewed in detail care discussed with Fernie Ledezma MD Jun 14, 2020 11:18
[2020-06-14 12:00] VITALS: BP 112/60
[2020-06-14 16:00] VITALS: BP 112/55
--- NOTE | 2020-06-14 18:05 | Surgery Progress Note ---
Surgery Progress Note Subjective Procedure Performed Excisional debridement of sacral decubitus ulcer 10 cm x 10 cm x 4 cm deep down to bone Additional Comments afebrile, HD stable labs reviewed micro noted exam stable pending labs hematuria Objective Last 24 Hour Vital Signs Date Time Temp Pulse Resp B/P (MAP) Pulse Ox O2 Delivery O2 Flow Rate FiO2 06/14/20 17:43 112/60 06/14/20 16:00 96.8 103 24 112/55 (74) 100 06/14/20 13:22 112/60 06/14/20 13:21 106 112/60 06/14/20 13:05 96 T-Piece 5.0 28 06/14/20 12:00 96.8 106 24 112/60 (77) 99 06/14/20 12:00 106 06/14/20 09:00 99/43 06/14/20 09:00 Trach Collar 5.0 06/14/20 08:35 97 T-Piece 5.0 28 06/14/20 08:00 103 06/14/20 08:00 97.5 103 24 99/43 (61) 98 06/14/20 05:34 88 126/65 06/14/20 04:00 97 06/14/20 04:00 97.5 100 19 109/50 (69) 99 06/14/20 01:15 98 T-Piece 5.0 28 06/14/20 00:00 96 06/14/20 00:00 99.3 68 18 119/64 (82) 98 06/13/20 21:43 66 115/56 06/13/20 21:20 97 T-Piece 5.0 28 06/13/20 21:00 Trach Collar 5.0 06/13/20 20:00 98 06/13/20 20:00 99.9 93 18 132/73 (92) 95 06/13/20 18:27 101.3 I&O Intake and Output 06/13/20 06/14/20 19:00 07:00 Intake Total 50 ml Output Total 300 ml 500 ml Balance -300 ml -450 ml Tube Feeding 50 ml Output Urine Total 300 ml 500 ml Dressing: saturated Cardiovascular: RSR Respiratory: decreased breath sounds Abdomen: soft, non-tender, present bowel sounds Extremities: no tenderness, no cyanosis Laboratory Tests Test 06/13/20 20:58 06/13/20 23:33 06/14/20 05:09 06/14/20 11:52 POC Whole Blood Glucose 256 MG/DL (74-106) H 276 MG/DL (74-106) H 240 MG/DL (74-106) H Pending Test 06/14/20 17:34 POC Whole Blood Glucose 211 MG/DL (74-106) H Assessment Post-op Diagnosis Stage IV sacral decubitus ulcer Plan Problems: (1) Anemia (2) Sepsis Assessment & Plan: 74-year-old female with medical comorbidities present with leukocytosis anemia abnormal labs hypoalbuminemia failure to thrive malnutrition worsening decubitus ulcer admitted further care and management was prior on vancomycin now on IV antibiotics admitted and under monitoring. Full evaluation does not at the bedside and evaluation performed. Trach stable PEG tube stable skin deteriorating per her turgor worsening decubitus ulcer malnutrition continue tube feeds as tolerated continue antibiotics wounds unlikely etiology of patient's sepsis we will monitor and follow with recommendations trend labs thank you for letting participate patient's care improving 06/13 acute severe leukocytosis abx changed wound improved since debridement will monitor DAILY ESTIMATED NEEDS: Needs based on Wound, DM/ 57kg abw 25-30 kcals/kg 0950-2843 total kcals 1.25-1.8 g protein/kg 71-103 g total protein 20-25 mL/kg 2468-2757 total fluid mLs NUTRITION DIAGNOSIS: * Increased kcal/prot needs R/T wound healing as evidenced by pt admiteed w/ unstageable sacral wound, refer to full wound care eval. * Swallowing difficulty R/T dysphagia, respiratory status as evidenced by pt on T-collar, PEG dep. CURRENT TF:Glucerna 1.2 @ 50ml/hr x 24 hrs ENTERAL NUTRITION RECOMMENDATIONS: Glucerna 1.2 @ 50ml/hr x 24 hrs to provide 1200ml, 1440kcal, 72g, 966ml free water * Maintain current TF * HOB over 30 degrees/ water flush per MD ADDITIONAL RECOMMENDATIONS: * Calibrated bedscale wt -w/ added p200 mattress + pump * Wound healing: TF @ goal will provide 100% RDI Continue Vit C 250mg QD + add Endy BID via PEG * Monitor lytes closely w/ Lasix, replete as needed * Monitor BGs, rec increasing Levemir (POC glu 373 310) . (3) Elevated troponin (4) Pneumonia (5) Encounter for generalized patient complaints (6) Decubitus skin ulcer Assessment & Plan: Patient presented on admission with an Unstageable Sacral Pressure injury(L)9.8cm x (W)6.7cm. Base of wound is 80% necrotic ,20% mixed slough ,beefy red. Small amt serous exudate. Mild odor noted. Borders are macerated with surrounding maroon and indurated borders. MASD noted to Mons-pubis outer aspects of R and L buttocks. Perineum and bilat ischial tuberosities. Affected areas mentioned are erythematous, macerated with scattered satellite lesions. Non-Blanchable erythema without induration or fluctuance R and L Heels. Skin assessed under tracheal collar and no evidence of skin breakdown noted. Assessed pt and necrotic base of Sacral wound crosshatched by Md. Unstageable Sacral Pressure Injury (L)9.8cm x (W)7cm. 90% dry necrotic cap ,10% lj borders. Edges are adherent to base of wound. Periwound is pink and dry. No odor or exudate noted. Small external haemorrhoid with small amt bleeding noted. R and L heels are both blanchable. No new skin concerns noted. Wound Tx are effective and continued as ordered . All wound prevention protocols continued as care-planned. Pt has an APM/DANIEL Mattress overlay and is being positioned as per tolerance and within protocols. s/p excisional debridement of stage 4 decubitus ulcer Tx.Plan: Cleanse Sacral wound with Saline. Apply TheraHoney. Apply Moisture Barrier Paste periwound. Cover with Optifoam Drsg. Change Daily and prn. Apply Moisture Barrier Paste to Mons Pubis, Perineum and buttocks with each Incontinence care. Apply Cavilon Skin Barrier to Both heels and Malleoli. Cover each site with Optifoam Drsg. Change every 7 days and prn. Reposition at least every 2hours or as tolerated. Off-load heels with Pillow. Reposition at least every 2hours or as tolerated. APM/DANIEL mattress overlay. Adrian Gar Jun 14, 2020 18:05
[2020-06-14 20:00] VITALS: BP 105/55
[2020-06-15] VITALS: BP 105/66
--- NOTE | 2020-06-15 01:46 | Cardiology Progress Note ---
Subjective DATE OF SERVICE: Jun 14, 2020 On T-collar Acute increase in renal parameters and potassium noted yesterday Now with hematuria; anticoagulation on hold. BP range elevated at times, but improving Glucose trend up Sputum culture A.baumanni Monitor: Sinus with PAFIb and short runs of aberrancy. CT scan: Pulmonary edema and pleural effusion Wound with abscess or gas forming organisms Objective Last 24 Hour Vital Signs Date Time Temp Pulse Resp B/P (MAP) Pulse Ox O2 Delivery O2 Flow Rate FiO2 06/15/20 00:01 97 T-Piece 5.0 28 06/15/20 00:00 98 06/15/20 00:00 97.7 97 24 105/66 (79) 98 06/14/20 21:41 101 105/55 06/14/20 21:00 Trach Collar 5.0 06/14/20 20:00 99 06/14/20 20:00 97.9 101 24 105/55 (72) 98 06/14/20 18:51 96 T-Piece 5.0 28 06/14/20 17:43 112/60 06/14/20 16:00 104 06/14/20 16:00 96.8 103 24 112/55 (74) 100 06/14/20 13:22 112/60 06/14/20 13:21 106 112/60 06/14/20 13:05 96 T-Piece 5.0 28 06/14/20 12:00 96.8 106 24 112/60 (77) 99 06/14/20 12:00 106 06/14/20 09:00 99/43 06/14/20 09:00 Trach Collar 5.0 06/14/20 08:35 97 T-Piece 5.0 28 06/14/20 08:00 103 06/14/20 08:00 97.5 103 24 99/43 (61) 98 06/14/20 05:34 88 126/65 06/14/20 04:00 97 06/14/20 04:00 97.5 100 19 109/50 (69) 99 ROS: no change from my assessment of 05/25/20 - remains unobtainable from patient HEENT: normal ENT inspection, Thin Trach secretions RHYTHM: NSR, PACs LUNGS: diminished breath sounds - left, bilateral rhonchi CARDIAC: normal rate, regular rhythm, normal S1 and S2, arrhythmia ABDOMEN: normal bowel sounds, non tender, soft, G-Tube intact EXTREMITIES: trace edema, other - sacral decub. noncommunicative Laboratory Tests Test 06/14/20 05:09 06/14/20 11:52 06/14/20 17:34 06/14/20 19:59 POC Whole Blood Glucose 240 MG/DL (74-106) H Pending 211 MG/DL (74-106) H 213 MG/DL (74-106) H Test 06/14/20 23:53 POC Whole Blood Glucose 212 MG/DL (74-106) H Assessment/Plan Assessment/Plan Healthcare associated PNA Left pleural effusion Acute myocardial ischemia with possible NSTE myocardial infarction Sepsis Respiratory failure Hypertension/HHD with elev BP Parox AFib Conduction system disease with bifasc block Chr diastolic CHF Low lipid parameters NSVT IRDM with hyperglycemia still Hypomagnesemia Contaminant in positive blood cultures Osteomyelitis Acute renal faillure Hyperkalemia Hematuria Resp Rx Off antibiotics per ID quality assurance monitor body DC diuretics and ACEi IVF Anticoagulation on hold due to bleeding. Titrate CV regimen based on clinical parameters - continue current antianginal regimen, including beta pietro. No need for statin Titrate insulin rx - advancing levemir. Wound care Monitor hemoglobin. John Heard MD Jun 15, 2020 01:46
[2020-06-15 04:00] VITALS: BP 117/60
[2020-06-15] MEDS: Metoprolol Tartrate 50mg tab GT SCH ×3 (05:37→22:44)
[2020-06-15] MEDS: NovoLOG Insulin Flexpen SUBQ SCH ×4 (05:42→23:10)
[2020-06-15 07:18] LABS: HEMOGLOBIN 7.6 G/DL (12.0-16.0); MEAN CORPUSCULAR VOLUME 76 FL (80-99); PLATELET COUNT 388 K/UL (150-450); RED BLOOD COUNT 3.16 M/UL (4.20-5.40); RED CELL DISTRIBUTION WIDTH 15.9 % (11.6-14.8)
[2020-06-15 07:32] LABS: WHITE BLOOD COUNT 29.8 K/UL (4.8-10.8)
[2020-06-15 07:35] LABS: ALBUMIN 1.6 G/DL (3.4-5.0); ALBUMIN/GLOBULIN RATIO 0.3 (1.0-2.7); BILIRUBIN,TOTAL 0.4 MG/DL (0.2-1.0); CALCIUM 8.7 MG/DL (8.5-10.1); CREATININE 3.4 MG/DL (0.55-1.30)
[2020-06-15 08:00] VITALS: BP 120/58
[2020-06-15] MEDS: Ascorbic Acid 500mg tab GT SCH (08:43)
[2020-06-15] MEDS: Cefepime 1gm in D5W 55ml IVPB SCH (08:43)
[2020-06-15] MEDS: Levemir Flexpen SUBQ SCH ×2 (08:48→20:39)
[2020-06-15] MEDS: Pantoprazole Inj IVP SCH (09:16)
--- NOTE | 2020-06-15 09:41 | Pulmonology Progress Note ---
Subjective ROS Limited/Unobtainable: Yes Constitutional: Denies: fever Allergies: Coded Allergies: No Known Allergies (Unverified , 05/15/20) Subjective care noted hematuria noted elevated ESR and osteo Objective Last 24 Hour Vital Signs Date Time Temp Pulse Resp B/P (MAP) Pulse Ox O2 Delivery O2 Flow Rate FiO2 06/15/20 08:42 120/58 06/15/20 08:00 98.4 86 20 120/58 (78) 100 06/15/20 07:35 98 T-Piece 5.0 28 06/15/20 05:37 90 110/57 06/15/20 04:00 84 06/15/20 04:00 97.7 87 24 117/60 (79) 100 06/15/20 00:01 97 T-Piece 5.0 28 06/15/20 00:00 98 06/15/20 00:00 97.7 97 24 105/66 (79) 98 06/14/20 21:41 101 105/55 06/14/20 21:00 Trach Collar 5.0 06/14/20 20:00 99 06/14/20 20:00 97.9 101 24 105/55 (72) 98 06/14/20 18:51 96 T-Piece 5.0 28 06/14/20 17:43 112/60 06/14/20 16:00 104 06/14/20 16:00 96.8 103 24 112/55 (74) 100 06/14/20 13:22 112/60 06/14/20 13:21 106 112/60 06/14/20 13:05 96 T-Piece 5.0 28 06/14/20 12:00 96.8 106 24 112/60 (77) 99 06/14/20 12:00 106 Intake and Output 06/14/20 06/15/20 19:00 07:00 Intake Total 600 ml 800 ml Output Total 900 ml 750 ml Balance -300 ml 50 ml Free Water 300 ml Tube Feeding 600 ml 500 ml Output Urine Total 900 ml 750 ml # Bowel Movements 2 Objective WDWN NAD trach reduced breath sounds bilaterally without rhonchi [id number] without MRG NABS nontender GT no CCE withdrawn Laboratory Tests 06/14/20 11:52: POC Whole Blood Glucose [Pending] 06/14/20 17:34: POC Whole Blood Glucose 211H 06/14/20 19:59: POC Whole Blood Glucose 213H 06/14/20 23:53: POC Whole Blood Glucose 212H 06/15/20 05:39: POC Whole Blood Glucose 194H 06/15/20 06:26: White Blood Count 29.8*H, Red Blood Count 3.16L, Hemoglobin 7.6L, Hematocrit 24.0L, Mean Corpuscular Volume 76L, Mean Corpuscular Hemoglobin 24.1L, Mean Corpuscular Hemoglobin Concent 31.7L, Red Cell Distribution Width 15.9H, Platelet Count 388, Mean Platelet Volume 9.0, Neutrophils (%) (Auto) , Lymphocytes (%) (Auto) , Monocytes (%) (Auto) , Eosinophils (%) (Auto) , Basophils (%) (Auto) , Neutrophils % (Manual) [Pending], Lymphocytes % (Manual) [Pending], Platelet Estimate [Pending], Platelet Morphology [Pending], Erythrocyte Sedimentation Rate 128H, Sodium Level 135L, Potassium Level 5.0, Chloride Level 98, Carbon Dioxide Level 20L, Anion Gap 17H, Blood Urea Nitrogen 105H, Creatinine 3.4H, Estimat Glomerular Filtration Rate 13.2, Glucose Level 189H, Calcium Level 8.7, Total Bilirubin 0.4, Aspartate Amino Transf (AST/SGOT) 13L, Alanine Aminotransferase (ALT/SGPT) 10L, Alkaline Phosphatase 104, C- Reactive Protein, Quantitative 47.7H, Total Protein 6.9, Albumin 1.6L, Globulin 5.3, Albumin/Globulin Ratio 0.3L Current Medications Medications (Trade) Dose Ordered Sig/Cayden Route PRN Reason Start Time Stop Time Status Last Admin Dose Admin Acetaminophen (Tylenol) 650 mg Q4H PRN GT Pain 05/26/20 07:45 06/25/20 07:44 06/13/20 17:57 Ascorbic Acid (Vitamin C) 250 mg DAILY GT 05/28/20 09:00 06/27/20 08:59 06/15/20 08:43 Cefepime HCl 1 gm/ Dextrose 55 ml @ 110 mls/hr Q24H IVPB 06/15/20 09:00 06/22/20 08:59 06/15/20 08:43 Clonidine HCl (Catapres Tab) 0.1 mg Q4H PRN ORAL for sbp>150 06/03/20 09:00 09/01/20 08:59 06/11/20 05:49 Dextrose (Dextrose 50%) 25 ml Q30M PRN IV Hypoglycemia 05/26/20 07:30 08/24/20 07:29 Dextrose (Dextrose 50%) 50 ml Q30M PRN IV Hypoglycemia 05/26/20 07:30 08/24/20 07:29 Insulin Aspart (NovoLOG) Q6HR SUBQ 05/26/20 12:00 08/24/20 11:59 06/15/20 05:42 Insulin Detemir (Levemir) 20 units EVERY 12 HOURS SUBQ 06/11/20 21:00 09/09/20 20:59 06/15/20 08:48 Isosorbide Dinitrate (Isordil) 20 mg THREE TIMES A DAY GT 06/02/20 13:00 07/02/20 12:59 06/15/20 08:42 Linezolid (Zyvox) 600 mg EVERY 12 HOURS ORAL 06/13/20 11:30 06/18/20 11:29 06/15/20 08:43 Metoprolol Tartrate (Lopressor) 50 mg EVERY 8 HOURS GT 05/28/20 22:00 08/26/20 21:59 06/15/20 05:37 Pantoprazole (Protonix) 40 mg DAILY IVP 05/26/20 09:00 06/25/20 08:59 06/15/20 09:16 Assessment/Plan Assessment/Plan IMPRESSION leukocytosis, worse Afib, chronic encephalopathy trach respiratory failure elevated troponin anemia bacteremia- staph fevers better hypertension osteo hematuria PLAN CT with osteo ESR elevated wbc change; defer to ID respiratory care snf meds noted suction monitor cultures eliquis hold for now and IRRIGATE SOTO as needed and will resume when resolved card follow up IV antibiotics and care ID follow up and recommendations - not stable for dc impression, plan, and exam edited and reviewed in detail care discussed with Fernie Ledezma MD Jun 15, 2020 09:41
--- NOTE | 2020-06-15 10:33 | Infectious Diseases Prog Note ---
Assessment/Plan Assessment/Plan antibiotics : linezolid, cefepime A 1. aspiration pneumonia with acenitobacter s/p rx 2. + blood cultures with coag neg staph likely contaminated 3. leucocytosis improving 4. diabetes mellitus 5. hypertension 6. CVA 7. dementia 8. coccygeal osteomyelitis s/p debridement 9. renal failure P 1. continue cefepime, linezolid 2. will follow up cultures Subjective ROS Limited/Unobtainable: Yes Allergies: Coded Allergies: No Known Allergies (Unverified , 05/15/20) Objective Last 24 Hour Vital Signs Date Time Temp Pulse Resp B/P (MAP) Pulse Ox O2 Delivery O2 Flow Rate FiO2 06/15/20 08:42 120/58 06/15/20 08:00 98.4 86 20 120/58 (78) 100 06/15/20 07:35 98 T-Piece 5.0 28 06/15/20 07:27 80 06/15/20 05:37 90 110/57 06/15/20 04:00 84 06/15/20 04:00 97.7 87 24 117/60 (79) 100 06/15/20 00:01 97 T-Piece 5.0 28 06/15/20 00:00 98 06/15/20 00:00 97.7 97 24 105/66 (79) 98 06/14/20 21:41 101 105/55 06/14/20 21:00 Trach Collar 5.0 06/14/20 20:00 99 06/14/20 20:00 97.9 101 24 105/55 (72) 98 06/14/20 18:51 96 T-Piece 5.0 28 06/14/20 17:43 112/60 06/14/20 16:00 104 06/14/20 16:00 96.8 103 24 112/55 (74) 100 06/14/20 13:22 112/60 06/14/20 13:21 106 112/60 06/14/20 13:05 96 T-Piece 5.0 28 06/14/20 12:00 96.8 106 24 112/60 (77) 99 06/14/20 12:00 106 Height (Feet): 5 Height (Inches): 3.00 Weight (Pounds): 157 HEENT: status post trach Respiratory/Chest: lungs clear Cardiovascular: normal rate, regular rhythm, no gallop/murmur Abdomen: soft, non tender, other - GT Extremities: no edema Laboratory Tests Test 06/14/20 11:52 06/14/20 17:34 06/14/20 19:59 06/14/20 23:53 POC Whole Blood Glucose Pending 211 MG/DL (74-106) H 213 MG/DL (74-106) H 212 MG/DL (74-106) H Test 06/15/20 05:39 06/15/20 06:26 POC Whole Blood Glucose 194 MG/DL (74-106) H White Blood Count 29.8 K/UL (4.8-10.8) *H Red Blood Count 3.16 M/UL (4.20-5.40) L Hemoglobin 7.6 G/DL (12.0-16.0) L Hematocrit 24.0 % (37.0-47.0) L Mean Corpuscular Volume 76 FL (80-99) L Mean Corpuscular Hemoglobin 24.1 PG (27.0-31.0) L Mean Corpuscular Hemoglobin Concent 31.7 G/DL (32.0-36.0) L Red Cell Distribution Width 15.9 % (11.6-14.8) H Platelet Count 388 K/UL (150-450) Mean Platelet Volume 9.0 FL (6.5-10.1) Neutrophils (%) (Auto) % (45.0-75.0) Lymphocytes (%) (Auto) % (20.0-45.0) Monocytes (%) (Auto) % (1.0-10.0) Eosinophils (%) (Auto) % (0.0-3.0) Basophils (%) (Auto) % (0.0-2.0) Neutrophils % (Manual) Pending Lymphocytes % (Manual) Pending Platelet Estimate Pending Platelet Morphology Pending Erythrocyte Sedimentation Rate 128 MM/HR (0-30) H Sodium Level 135 MMOL/L (136-145) L Potassium Level 5.0 MMOL/L (3.5-5.1) Chloride Level 98 MMOL/L (98-107) Carbon Dioxide Level 20 MMOL/L (21-32) L Anion Gap 17 mmol/L (5-15) H Blood Urea Nitrogen 105 mg/dL (7-18) H Creatinine 3.4 MG/DL (0.55-1.30) H Estimat Glomerular Filtration Rate 13.2 mL/min (>60) Glucose Level 189 MG/DL (74-106) H Calcium Level 8.7 MG/DL (8.5-10.1) Total Bilirubin 0.4 MG/DL (0.2-1.0) Aspartate Amino Transf (AST/SGOT) 13 U/L (15-37) L Alanine Aminotransferase (ALT/SGPT) 10 U/L (12-78) L Alkaline Phosphatase 104 U/L (46-116) C-Reactive Protein, Quantitative 47.7 mg/dL (0.00-0.90) H Total Protein 6.9 G/DL (6.4-8.2) Albumin 1.6 G/DL (3.4-5.0) L Globulin 5.3 g/dL Albumin/Globulin Ratio 0.3 (1.0-2.7) L Current Medications Medications (Trade) Dose Ordered Sig/Cayden Route PRN Reason Start Time Stop Time Status Last Admin Dose Admin Acetaminophen (Tylenol) 650 mg Q4H PRN GT Pain 05/26/20 07:45 06/25/20 07:44 06/13/20 17:57 Ascorbic Acid (Vitamin C) 250 mg DAILY GT 05/28/20 09:00 06/27/20 08:59 06/15/20 08:43 Cefepime HCl 1 gm/ Dextrose 55 ml @ 110 mls/hr Q24H IVPB 06/15/20 09:00 06/22/20 08:59 06/15/20 08:43 Clonidine HCl (Catapres Tab) 0.1 mg Q4H PRN ORAL for sbp>150 06/03/20 09:00 09/01/20 08:59 06/11/20 05:49 Dextrose (Dextrose 50%) 25 ml Q30M PRN IV Hypoglycemia 05/26/20 07:30 08/24/20 07:29 Dextrose (Dextrose 50%) 50 ml Q30M PRN IV Hypoglycemia 05/26/20 07:30 08/24/20 07:29 Insulin Aspart (NovoLOG) Q6HR SUBQ 05/26/20 12:00 08/24/20 11:59 06/15/20 05:42 Insulin Detemir (Levemir) 20 units EVERY 12 HOURS SUBQ 06/11/20 21:00 09/09/20 20:59 06/15/20 08:48 Isosorbide Dinitrate (Isordil) 20 mg THREE TIMES A DAY GT 06/02/20 13:00 07/02/20 12:59 06/15/20 08:42 Linezolid (Zyvox) 600 mg EVERY 12 HOURS ORAL 06/13/20 11:30 06/18/20 11:29 06/15/20 08:43 Metoprolol Tartrate (Lopressor) 50 mg EVERY 8 HOURS GT 05/28/20 22:00 08/26/20 21:59 06/15/20 05:37 Pantoprazole (Protonix) 40 mg DAILY IVP 05/26/20 09:00 06/25/20 08:59 06/15/20 09:16 Mina Salamanca MD Jun 15, 2020 10:33
[2020-06-15 11:54] VITALS: BP 125/67
--- NOTE | 2020-06-15 12:00 | Diagnostic Imaging Report ---
Procedure: XRAY Chest 1v Reason for study: Shortness of breath. Comparison films: 06/07/2020. FINDINGS: Tracheostomy remains in place. Vascularity is normal. There is a somewhat rounded density noted in the left midlung new compared to previous study. 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 Cardiomegaly unchanged. CP angles are sharp. The bony thorax appear unremarkable. 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
--- NOTE | 2020-06-15 13:59 | Surgery Progress Note ---
Surgery Progress Note Subjective Procedure Performed Excisional debridement of sacral decubitus ulcer 10 cm x 10 cm x 4 cm deep down to bone Additional Comments no acute events comfortable labs noted cxr noted wbc trending down likely fluid in fissure Objective Last 24 Hour Vital Signs Date Time Temp Pulse Resp B/P (MAP) Pulse Ox O2 Delivery O2 Flow Rate FiO2 06/15/20 13:44 125/67 06/15/20 13:44 93 125/67 06/15/20 11:54 97.5 93 20 125/67 (86) 100 06/15/20 11:38 92 06/15/20 09:00 Trach Collar 5.0 06/15/20 08:42 120/58 06/15/20 08:00 98.4 86 20 120/58 (78) 100 06/15/20 07:35 98 T-Piece 5.0 28 06/15/20 07:27 80 06/15/20 05:37 90 110/57 06/15/20 04:00 84 06/15/20 04:00 97.7 87 24 117/60 (79) 100 06/15/20 00:01 97 T-Piece 5.0 28 06/15/20 00:00 98 06/15/20 00:00 97.7 97 24 105/66 (79) 98 06/14/20 21:41 101 105/55 06/14/20 21:00 Trach Collar 5.0 06/14/20 20:00 99 06/14/20 20:00 97.9 101 24 105/55 (72) 98 06/14/20 18:51 96 T-Piece 5.0 28 06/14/20 17:43 112/60 06/14/20 16:00 104 06/14/20 16:00 96.8 103 24 112/55 (74) 100 I&O Intake and Output 06/14/20 06/15/20 19:00 07:00 Intake Total 600 ml 800 ml Output Total 900 ml 750 ml Balance -300 ml 50 ml Free Water 300 ml Tube Feeding 600 ml 500 ml Output Urine Total 900 ml 750 ml # Bowel Movements 2 Dressing: other Wound: other Cardiovascular: RSR Respiratory: decreased breath sounds Abdomen: soft, non-tender, present bowel sounds Extremities: no tenderness, no cyanosis Laboratory Tests Test 06/14/20 17:34 06/14/20 19:59 06/14/20 23:53 06/15/20 05:39 POC Whole Blood Glucose 211 MG/DL (74-106) H 213 MG/DL (74-106) H 212 MG/DL (74-106) H 194 MG/DL (74-106) H Test 06/15/20 06:26 06/15/20 11:13 White Blood Count 29.8 K/UL (4.8-10.8) *H Red Blood Count 3.16 M/UL (4.20-5.40) L Hemoglobin 7.6 G/DL (12.0-16.0) L Hematocrit 24.0 % (37.0-47.0) L Mean Corpuscular Volume 76 FL (80-99) L Mean Corpuscular Hemoglobin 24.1 PG (27.0-31.0) L Mean Corpuscular Hemoglobin Concent 31.7 G/DL (32.0-36.0) L Red Cell Distribution Width 15.9 % (11.6-14.8) H Platelet Count 388 K/UL (150-450) Mean Platelet Volume 9.0 FL (6.5-10.1) Neutrophils (%) (Auto) % (45.0-75.0) Lymphocytes (%) (Auto) % (20.0-45.0) Monocytes (%) (Auto) % (1.0-10.0) Eosinophils (%) (Auto) % (0.0-3.0) Basophils (%) (Auto) % (0.0-2.0) Differential Total Cells Counted 100 Neutrophils % (Manual) 95 % (45-75) H Lymphocytes % (Manual) 2 % (20-45) L Monocytes % (Manual) 2 % (1-10) Eosinophils % (Manual) 1 % (0-3) Basophils % (Manual) 0 % (0-2) Band Neutrophils 0 % (0-8) Platelet Estimate Adequate Platelet Morphology Normal Hypochromasia 3+ Anisocytosis 1+ Microcytosis 1+ Erythrocyte Sedimentation Rate 128 MM/HR (0-30) H Sodium Level 135 MMOL/L (136-145) L Potassium Level 5.0 MMOL/L (3.5-5.1) Chloride Level 98 MMOL/L (98-107) Carbon Dioxide Level 20 MMOL/L (21-32) L Anion Gap 17 mmol/L (5-15) H Blood Urea Nitrogen 105 mg/dL (7-18) H Creatinine 3.4 MG/DL (0.55-1.30) H Estimat Glomerular Filtration Rate 13.2 mL/min (>60) Glucose Level 189 MG/DL (74-106) H Calcium Level 8.7 MG/DL (8.5-10.1) Total Bilirubin 0.4 MG/DL (0.2-1.0) Aspartate Amino Transf (AST/SGOT) 13 U/L (15-37) L Alanine Aminotransferase (ALT/SGPT) 10 U/L (12-78) L Alkaline Phosphatase 104 U/L (46-116) C-Reactive Protein, Quantitative 47.7 mg/dL (0.00-0.90) H Total Protein 6.9 G/DL (6.4-8.2) Albumin 1.6 G/DL (3.4-5.0) L Globulin 5.3 g/dL Albumin/Globulin Ratio 0.3 (1.0-2.7) L POC Whole Blood Glucose 163 MG/DL (74-106) H Assessment Post-op Diagnosis Stage IV sacral decubitus ulcer Plan Problems: (1) Anemia (2) Sepsis Assessment & Plan: 74-year-old female with medical comorbidities present with leukocytosis anemia abnormal labs hypoalbuminemia failure to thrive malnutrition worsening decubitus ulcer admitted further care and management was prior on vancomycin now on IV antibiotics admitted and under monitoring. Full evaluation does not at the bedside and evaluation performed. Trach stable PEG tube stable skin deteriorating per her turgor worsening decubitus ulcer malnutrition continue tube feeds as tolerated continue antibiotics wounds unlikely etiology of patient's sepsis we will monitor and follow with recommendations trend labs thank you for letting participate patient's care improving 06/13 acute severe leukocytosis abx changed wound improved since debridement will monitor DAILY ESTIMATED NEEDS: Needs based on Wound, DM/ 57kg abw 25-30 kcals/kg 7301-1297 total kcals 1.25-1.8 g protein/kg 71-103 g total protein 20-25 mL/kg 3723-9726 total fluid mLs NUTRITION DIAGNOSIS: * Increased kcal/prot needs R/T wound healing as evidenced by pt admiteed w/ unstageable sacral wound, refer to full wound care eval. * Swallowing difficulty R/T dysphagia, respiratory status as evidenced by pt on T-collar, PEG dep. CURRENT TF:Glucerna 1.2 @ 50ml/hr x 24 hrs ENTERAL NUTRITION RECOMMENDATIONS: Glucerna 1.2 @ 50ml/hr x 24 hrs to provide 1200ml, 1440kcal, 72g, 966ml free water * Maintain current TF * HOB over 30 degrees/ water flush per MD ADDITIONAL RECOMMENDATIONS: * Calibrated bedscale wt -w/ added p200 mattress + pump * Wound healing: TF @ goal will provide 100% RDI Continue Vit C 250mg QD + add Endy BID via PEG * Monitor lytes closely w/ Lasix, replete as needed * Monitor BGs, rec increasing Levemir (POC glu [phone]) . (3) Elevated troponin (4) Pneumonia (5) Encounter for generalized patient complaints (6) Decubitus skin ulcer Assessment & Plan: Patient presented on admission with an Unstageable Sacral Pressure injury(L)9.8cm x (W)6.7cm. Base of wound is 80% necrotic ,20% mixed slough ,beefy red. Small amt serous exudate. Mild odor noted. Borders are macerated with surrounding maroon and indurated borders. MASD noted to Mons-pubis outer aspects of R and L buttocks. Perineum and bilat ischial tuberosities. Affected areas mentioned are erythematous, macerated with scattered satellite lesions. Non-Blanchable erythema without induration or fluctuance R and L Heels. Skin assessed under tracheal collar and no evidence of skin breakdown noted. Assessed pt and necrotic base of Sacral wound crosshatched by Md. Unstageable Sacral Pressure Injury (L)9.8cm x (W)7cm. 90% dry necrotic cap ,10% lj borders. Edges are adherent to base of wound. Periwound is pink and dry. No odor or exudate noted. Small external haemorrhoid with small amt bleeding noted. R and L heels are both blanchable. No new skin concerns noted. Wound Tx are effective and continued as ordered . All wound prevention protocols continued as care-planned. Pt has an APM/DANIEL Mattress overlay and is being positioned as per tolerance and within protocols. s/p excisional debridement of stage 4 decubitus ulcer Tx.Plan: Cleanse Sacral wound with Saline. Apply TheraHoney. Apply Moisture Barrier Paste periwound. Cover with Optifoam Drsg. Change Daily and prn. Apply Moisture Barrier Paste to Mons Pubis, Perineum and buttocks with each Incontinence care. Apply Cavilon Skin Barrier to Both heels and Malleoli. Cover each site with Optifoam Drsg. Change every 7 days and prn. Reposition at least every 2hours or as tolerated. Off-load heels with Pillow. Reposition at least every 2hours or as tolerated. APM/DANIEL mattress overlay. Adrian Gar Jun 15, 2020 13:59
[2020-06-15 16:00] VITALS: BP 107/58
[2020-06-15 20:00] VITALS: BP 103/50
--- NOTE | 2020-06-15 23:20 | Cardiology Progress Note ---
Subjective DATE OF SERVICE: Jun 15, 2020 On T-collar Acute increase in renal parameters and potassium persists Still with hematuria; anticoagulation on hold. BP range elevated at times, but improving Glucose trend continues to be elevated. Sputum culture A.baumanni Monitor: Sinus with PAFIb and short runs of aberrancy. CT scan: Pulmonary edema and pleural effusion Wound with abscess or gas forming organisms Objective Last 24 Hour Vital Signs Date Time Temp Pulse Resp B/P (MAP) Pulse Ox O2 Delivery O2 Flow Rate FiO2 06/15/20 22:15 91 06/15/20 21:00 Trach Collar 5.0 06/15/20 20:00 98.6 91 22 103/50 (67) 100 06/15/20 19:35 98 T-Piece 5.0 28 06/15/20 17:21 107/58 06/15/20 16:00 97.7 97 20 107/58 (74) 99 06/15/20 15:13 96 06/15/20 13:44 125/67 06/15/20 13:44 93 125/67 06/15/20 13:00 96 T-Piece 5.0 28 06/15/20 11:54 97.5 93 20 125/67 (86) 100 06/15/20 11:38 92 06/15/20 09:00 Trach Collar 5.0 06/15/20 08:42 120/58 06/15/20 08:00 98.4 86 20 120/58 (78) 100 06/15/20 07:35 98 T-Piece 5.0 28 06/15/20 07:27 80 06/15/20 05:37 90 110/57 06/15/20 04:00 84 06/15/20 04:00 97.7 87 24 117/60 (79) 100 06/15/20 00:01 97 T-Piece 5.0 28 06/15/20 00:00 98 06/15/20 00:00 97.7 97 24 105/66 (79) 98 ROS: no change from my assessment of 05/25/20 - remains unobtainable from patient HEENT: normal ENT inspection, Thin Trach secretions RHYTHM: NSR, PACs LUNGS: diminished breath sounds - left, bilateral rhonchi CARDIAC: normal rate, regular rhythm, normal S1 and S2, arrhythmia ABDOMEN: normal bowel sounds, non tender, soft, G-Tube intact EXTREMITIES: trace edema, other - sacral decub. noncommunicative Laboratory Tests Test 06/14/20 23:53 06/15/20 05:39 06/15/20 06:26 06/15/20 11:13 POC Whole Blood Glucose 212 MG/DL (74-106) H 194 MG/DL (74-106) H 163 MG/DL (74-106) H White Blood Count 29.8 K/UL (4.8-10.8) *H Red Blood Count 3.16 M/UL (4.20-5.40) L Hemoglobin 7.6 G/DL (12.0-16.0) L Hematocrit 24.0 % (37.0-47.0) L Mean Corpuscular Volume 76 FL (80-99) L Mean Corpuscular Hemoglobin 24.1 PG (27.0-31.0) L Mean Corpuscular Hemoglobin Concent 31.7 G/DL (32.0-36.0) L Red Cell Distribution Width 15.9 % (11.6-14.8) H Platelet Count 388 K/UL (150-450) Mean Platelet Volume 9.0 FL (6.5-10.1) Neutrophils (%) (Auto) % (45.0-75.0) Lymphocytes (%) (Auto) % (20.0-45.0) Monocytes (%) (Auto) % (1.0-10.0) Eosinophils (%) (Auto) % (0.0-3.0) Basophils (%) (Auto) % (0.0-2.0) Differential Total Cells Counted 100 Neutrophils % (Manual) 95 % (45-75) H Lymphocytes % (Manual) 2 % (20-45) L Monocytes % (Manual) 2 % (1-10) Eosinophils % (Manual) 1 % (0-3) Basophils % (Manual) 0 % (0-2) Band Neutrophils 0 % (0-8) Platelet Estimate Adequate Platelet Morphology Normal Hypochromasia 3+ Anisocytosis 1+ Microcytosis 1+ Erythrocyte Sedimentation Rate 128 MM/HR (0-30) H Sodium Level 135 MMOL/L (136-145) L Potassium Level 5.0 MMOL/L (3.5-5.1) Chloride Level 98 MMOL/L (98-107) Carbon Dioxide Level 20 MMOL/L (21-32) L Anion Gap 17 mmol/L (5-15) H Blood Urea Nitrogen 105 mg/dL (7-18) H Creatinine 3.4 MG/DL (0.55-1.30) H Estimat Glomerular Filtration Rate 13.2 mL/min (>60) Glucose Level 189 MG/DL (74-106) H Calcium Level 8.7 MG/DL (8.5-10.1) Total Bilirubin 0.4 MG/DL (0.2-1.0) Aspartate Amino Transf (AST/SGOT) 13 U/L (15-37) L Alanine Aminotransferase (ALT/SGPT) 10 U/L (12-78) L Alkaline Phosphatase 104 U/L (46-116) C-Reactive Protein, Quantitative 47.7 mg/dL (0.00-0.90) H Total Protein 6.9 G/DL (6.4-8.2) Albumin 1.6 G/DL (3.4-5.0) L Globulin 5.3 g/dL Albumin/Globulin Ratio 0.3 (1.0-2.7) L Test 06/15/20 23:08 POC Whole Blood Glucose 149 MG/DL (74-106) H Assessment/Plan Assessment/Plan Healthcare associated PNA Left pleural effusion Acute myocardial ischemia with possible NSTE myocardial infarction Sepsis Respiratory failure Hypertension/HHD with elev BP Parox AFib 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 Titrate CV regimen based on clinical parameters - continue current antianginal regimen, including beta pietro. No need for statin Titrate insulin rx - advancing levemir. Wound care Monitor hemoglobin. Consider renal consult John Heard MD Jun 15, 2020 23:20
[2020-06-16] VITALS: BP 118/55
[2020-06-16 04:00] VITALS: BP 130/64
[2020-06-16] MEDS: Metoprolol Tartrate 50mg tab GT SCH ×3 (05:07→22:01)
[2020-06-16] MEDS: NovoLOG Insulin Flexpen SUBQ SCH ×3 (05:07→17:45)
[2020-06-16 07:33] LABS: HEMATOCRIT 31.2 % (37.0-47.0); HEMOGLOBIN 10.4 G/DL (12.0-16.0); MEAN CORPUSCULAR VOLUME 78 FL (80-99); PLATELET COUNT 377 K/UL (150-450); RED BLOOD COUNT 4.02 M/UL (4.20-5.40); RED CELL DISTRIBUTION WIDTH 14.8 % (11.6-14.8)
[2020-06-16 08:00] VITALS: BP 126/67
[2020-06-16 08:06] LABS: WHITE BLOOD COUNT 26.1 K/UL (4.8-10.8)
--- NOTE | 2020-06-16 08:12 | Pulmonology Progress Note ---
Subjective ROS Limited/Unobtainable: Yes Constitutional: Denies: fever Allergies: Coded Allergies: No Known Allergies (Unverified , 05/15/20) Subjective care noted hematuria elevated ESR and osteo elevated wbc Objective Last 24 Hour Vital Signs Date Time Temp Pulse Resp B/P (MAP) Pulse Ox O2 Delivery O2 Flow Rate FiO2 06/16/20 05:07 93 132/64 06/16/20 04:00 98.6 92 22 130/64 (86) 97 06/16/20 04:00 92 06/16/20 01:13 98 T-Piece 5.0 28 06/16/20 00:00 99.0 91 22 118/55 (76) 100 06/16/20 00:00 89 06/15/20 22:15 91 06/15/20 21:00 Trach Collar 5.0 06/15/20 20:00 98.6 91 22 103/50 (67) 100 06/15/20 19:35 98 T-Piece 5.0 28 06/15/20 17:21 107/58 06/15/20 16:00 97.7 97 20 107/58 (74) 99 06/15/20 15:13 96 06/15/20 13:44 125/67 06/15/20 13:44 93 125/67 06/15/20 13:00 96 T-Piece 5.0 28 06/15/20 11:54 97.5 93 20 125/67 (86) 100 06/15/20 11:38 92 06/15/20 09:00 Trach Collar 5.0 06/15/20 08:42 120/58 Intake and Output 06/15/20 06/16/20 19:00 07:00 Intake Total 655 ml 550 ml Output Total 350 ml 800 ml Balance 305 ml -250 ml IV Total 55 ml Tube Feeding 600 ml 550 ml Output Urine Total 350 ml 800 ml # Bowel Movements 2 4 Objective WDWN NAD trach reduced breath sounds bilaterally without rhonchi [id number] without MRG NABS nontender GT no CCE withdrawn Laboratory Tests 06/15/20 11:13: POC Whole Blood Glucose 163H 06/15/20 17:22: POC Whole Blood Glucose 144H 06/15/20 20:34: POC Whole Blood Glucose 131H 06/15/20 23:08: POC Whole Blood Glucose 149H 06/16/20 05:05: POC Whole Blood Glucose 170H 06/16/20 07:10: White Blood Count 26.1*H, Red Blood Count 4.02L, Hemoglobin 10.4#L, Hematocrit 31.2L, Mean Corpuscular Volume 78L, Mean Corpuscular Hemoglobin 25.8L, Mean Corpuscular Hemoglobin Concent 33.3, Red Cell Distribution Width 14.8, Platelet Count 377, Mean Platelet Volume 8.3, Neutrophils (%) (Auto) , Lymphocytes (%) (Auto) , Monocytes (%) (Auto) , Eosinophils (%) (Auto) , Basophils (%) (Auto) , Neutrophils % (Manual) [Pending], Lymphocytes % (Manual) [Pending], Platelet Estimate [Pending], Platelet Morphology [Pending] Current Medications Medications (Trade) Dose Ordered Sig/Cayden Route PRN Reason Start Time Stop Time Status Last Admin Dose Admin Acetaminophen (Tylenol) 650 mg Q4H PRN GT Pain 05/26/20 07:45 06/25/20 07:44 06/13/20 17:57 Ascorbic Acid (Vitamin C) 250 mg DAILY GT 05/28/20 09:00 06/27/20 08:59 06/15/20 08:43 Cefepime HCl 1 gm/ Dextrose 55 ml @ 110 mls/hr Q24H IVPB 06/15/20 09:00 06/22/20 08:59 06/15/20 08:43 Clonidine HCl (Catapres Tab) 0.1 mg Q4H PRN ORAL for sbp>150 06/03/20 09:00 09/01/20 08:59 06/11/20 05:49 Dextrose (Dextrose 50%) 25 ml Q30M PRN IV Hypoglycemia 05/26/20 07:30 08/24/20 07:29 Dextrose (Dextrose 50%) 50 ml Q30M PRN IV Hypoglycemia 05/26/20 07:30 08/24/20 07:29 Insulin Aspart (NovoLOG) Q6HR SUBQ 05/26/20 12:00 08/24/20 11:59 06/16/20 05:07 Insulin Detemir (Levemir) 24 units EVERY 12 HOURS SUBQ 06/16/20 09:00 09/14/20 08:59 Isosorbide Dinitrate (Isordil) 20 mg THREE TIMES A DAY GT 06/02/20 13:00 07/02/20 12:59 06/15/20 17:21 Linezolid (Zyvox) 600 mg EVERY 12 HOURS ORAL 06/13/20 11:30 06/18/20 11:29 06/15/20 20:28 Metoprolol Tartrate (Lopressor) 50 mg EVERY 8 HOURS GT 05/28/20 22:00 08/26/20 21:59 06/16/20 05:07 Pantoprazole (Protonix) 40 mg DAILY IVP 05/26/20 09:00 06/25/20 08:59 06/15/20 09:16 Assessment/Plan Assessment/Plan IMPRESSION leukocytosis, worse Afib, chronic encephalopathy trach respiratory failure elevated troponin anemia bacteremia- staph fevers better hypertension osteo hematuria diabetes PLAN CT with osteo ESR elevated wbc not improving respiratory care snf meds noted suction monitor cultures eliquis resume once confirmed that hematuria resolved card follow up IV antibiotics and care ID follow up and recommendations - not stable for dc impression, plan, and exam edited and reviewed in detail care discussed with Fernie Ledezma MD Jun 16, 2020 08:12
[2020-06-16] MEDS: Ascorbic Acid 500mg tab GT SCH (09:51)
[2020-06-16] MEDS: Pantoprazole Inj IVP SCH (09:59)
[2020-06-16] MEDS: Cefepime 1gm in D5W 55ml IVPB SCH (09:59)
[2020-06-16] MEDS: Levemir Flexpen SUBQ SCH ×2 (10:03→22:07)
--- NOTE | 2020-06-16 10:16 | Surgery Progress Note ---
Surgery Progress Note Subjective Procedure Performed Excisional debridement of sacral decubitus ulcer 10 cm x 10 cm x 4 cm deep down to bone Additional Comments no acute events leukocytosis improving exam stable no n/v Objective Last 24 Hour Vital Signs Date Time Temp Pulse Resp B/P (MAP) Pulse Ox O2 Delivery O2 Flow Rate FiO2 06/16/20 09:52 132/64 06/16/20 08:15 98 T-Piece 5.0 28 06/16/20 05:07 93 132/64 06/16/20 04:00 98.6 92 22 130/64 (86) 97 06/16/20 04:00 92 06/16/20 01:13 98 T-Piece 5.0 28 06/16/20 00:00 99.0 91 22 118/55 (76) 100 06/16/20 00:00 89 06/15/20 22:15 91 06/15/20 21:00 Trach Collar 5.0 06/15/20 20:00 98.6 91 22 103/50 (67) 100 06/15/20 19:35 98 T-Piece 5.0 28 06/15/20 17:21 107/58 06/15/20 16:00 97.7 97 20 107/58 (74) 99 06/15/20 15:13 96 06/15/20 13:44 125/67 06/15/20 13:44 93 125/67 06/15/20 13:00 96 T-Piece 5.0 28 06/15/20 11:54 97.5 93 20 125/67 (86) 100 06/15/20 11:38 92 I&O Intake and Output 06/15/20 06/16/20 19:00 07:00 Intake Total 655 ml 550 ml Output Total 350 ml 800 ml Balance 305 ml -250 ml IV Total 55 ml Tube Feeding 600 ml 550 ml Output Urine Total 350 ml 800 ml # Bowel Movements 2 4 Dressing: other Wound: other Cardiovascular: RSR Respiratory: decreased breath sounds Abdomen: soft, non-tender, present bowel sounds Extremities: no tenderness, no cyanosis Laboratory Tests Test 06/15/20 11:13 06/15/20 17:22 06/15/20 20:34 06/15/20 23:08 POC Whole Blood Glucose 163 MG/DL (74-106) H 144 MG/DL (74-106) H 131 MG/DL (74-106) H 149 MG/DL (74-106) H Test 06/16/20 05:05 06/16/20 07:10 POC Whole Blood Glucose 170 MG/DL (74-106) H White Blood Count 26.1 K/UL (4.8-10.8) *H Red Blood Count 4.02 M/UL (4.20-5.40) L Hemoglobin 10.4 G/DL (12.0-16.0) #L Hematocrit 31.2 % (37.0-47.0) L Mean Corpuscular Volume 78 FL (80-99) L Mean Corpuscular Hemoglobin 25.8 PG (27.0-31.0) L Mean Corpuscular Hemoglobin Concent 33.3 G/DL (32.0-36.0) Red Cell Distribution Width 14.8 % (11.6-14.8) Platelet Count 377 K/UL (150-450) Mean Platelet Volume 8.3 FL (6.5-10.1) Neutrophils (%) (Auto) % (45.0-75.0) Lymphocytes (%) (Auto) % (20.0-45.0) Monocytes (%) (Auto) % (1.0-10.0) Eosinophils (%) (Auto) % (0.0-3.0) Basophils (%) (Auto) % (0.0-2.0) Neutrophils % (Manual) Pending Lymphocytes % (Manual) Pending Platelet Estimate Pending Platelet Morphology Pending Assessment Post-op Diagnosis Stage IV sacral decubitus ulcer Plan Problems: (1) Anemia (2) Sepsis Assessment & Plan: 74-year-old female with medical comorbidities present with leukocytosis anemia abnormal labs hypoalbuminemia failure to thrive malnutrition worsening decubitus ulcer admitted further care and management was prior on vancomycin now on IV antibiotics admitted and under monitoring. Full evaluation does not at the bedside and evaluation performed. Trach stable PEG tube stable skin deteriorating per her turgor worsening decubitus ulcer malnutrition continue tube feeds as tolerated continue antibiotics wounds unlikely etiology of patient's sepsis we will monitor and follow with recommendations trend labs thank you for letting participate patient's care improving 06/13 acute severe leukocytosis abx changed wound improved since debridement will monitor DAILY ESTIMATED NEEDS: Needs based on Wound, DM/ 57kg abw 25-30 kcals/kg 1830-1392 total kcals 1.25-1.8 g protein/kg 71-103 g total protein 20-25 mL/kg 8208-0944 total fluid mLs NUTRITION DIAGNOSIS: * Increased kcal/prot needs R/T wound healing as evidenced by pt admiteed w/ unstageable sacral wound, refer to full wound care eval. * Swallowing difficulty R/T dysphagia, respiratory status as evidenced by pt on T-collar, PEG dep. CURRENT TF:Glucerna 1.2 @ 50ml/hr x 24 hrs ENTERAL NUTRITION RECOMMENDATIONS: Glucerna 1.2 @ 50ml/hr x 24 hrs to provide 1200ml, 1440kcal, 72g, 966ml free water * Maintain current TF * HOB over 30 degrees/ water flush per MD ADDITIONAL RECOMMENDATIONS: * Calibrated bedscale wt -w/ added p200 mattress + pump * Wound healing: TF @ goal will provide 100% RDI Continue Vit C 250mg QD + add Endy BID via PEG * Monitor lytes closely w/ Lasix, replete as needed * Monitor BGs, rec increasing Levemir (POC glu 373 310) . (3) Elevated troponin (4) Pneumonia (5) Encounter for generalized patient complaints (6) Decubitus skin ulcer Assessment & Plan: Patient presented on admission with an Unstageable Sacral Pressure injury(L)9.8cm x (W)6.7cm. Base of wound is 80% necrotic ,20% mixed slough ,beefy red. Small amt serous exudate. Mild odor noted. Borders are macerated with surrounding maroon and indurated borders. MASD noted to Mons-pubis outer aspects of R and L buttocks. Perineum and bilat ischial tuberosities. Affected areas mentioned are erythematous, macerated with scattered satellite lesions. Non-Blanchable erythema without induration or fluctuance R and L Heels. Skin assessed under tracheal collar and no evidence of skin breakdown noted. Assessed pt and necrotic base of Sacral wound crosshatched by Md. Unstageable Sacral Pressure Injury (L)9.8cm x (W)7cm. 90% dry necrotic cap ,10% lj borders. Edges are adherent to base of wound. Periwound is pink and dry. No odor or exudate noted. Small external haemorrhoid with small amt bleeding noted. R and L heels are both blanchable. No new skin concerns noted. Wound Tx are effective and continued as ordered . All wound prevention protocols continued as care-planned. Pt has an APM/DANIEL Mattress overlay and is being positioned as per tolerance and within protocols. s/p excisional debridement of stage 4 decubitus ulcer Tx.Plan: Cleanse Sacral wound with Saline. Apply TheraHoney. Apply Moisture Barrier Paste periwound. Cover with Optifoam Drsg. Change Daily and prn. Apply Moisture Barrier Paste to Mons Pubis, Perineum and buttocks with each Incontinence care. Apply Cavilon Skin Barrier to Both heels and Malleoli. Cover each site with Optifoam Drsg. Change every 7 days and prn. Reposition at least every 2hours or as tolerated. Off-load heels with Pillow. Reposition at least every 2hours or as tolerated. APM/DANIEL mattress overlay. Adrian Gar Jun 16, 2020 10:16
--- NOTE | 2020-06-16 10:25 | Infectious Diseases Prog Note ---
Assessment/Plan Assessment/Plan A: 1. sepsis. 2. Acinetobacter pneumonia treated 3. Leukocytosis 4. Diabetes. 5. Hypertension. 6. CVA. 7. Dementia. 8. COVID-19 test was negative. 9. 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 Hematuria PLAN: 1. Continue Cefepime & Zyvox 2. Wound care 3. UA & urine culture Subjective ROS Limited/Unobtainable: Yes Constitutional: Denies: fever Allergies: Coded Allergies: No Known Allergies (Unverified , 05/15/20) Objective Last 24 Hour Vital Signs Date Time Temp Pulse Resp B/P (MAP) Pulse Ox O2 Delivery O2 Flow Rate FiO2 06/16/20 09:52 132/64 06/16/20 08:15 98 T-Piece 5.0 28 06/16/20 05:07 93 132/64 06/16/20 04:00 98.6 92 22 130/64 (86) 97 06/16/20 04:00 92 06/16/20 01:13 98 T-Piece 5.0 28 06/16/20 00:00 99.0 91 22 118/55 (76) 100 06/16/20 00:00 89 06/15/20 22:15 91 06/15/20 21:00 Trach Collar 5.0 06/15/20 20:00 98.6 91 22 103/50 (67) 100 06/15/20 19:35 98 T-Piece 5.0 28 06/15/20 17:21 107/58 06/15/20 16:00 97.7 97 20 107/58 (74) 99 06/15/20 15:13 96 06/15/20 13:44 125/67 06/15/20 13:44 93 125/67 06/15/20 13:00 96 T-Piece 5.0 28 06/15/20 11:54 97.5 93 20 125/67 (86) 100 06/15/20 11:38 92 Height (Feet): 5 Height (Inches): 3.00 Weight (Pounds): 157 HEENT: status post trach Respiratory/Chest: lungs clear, other - on T bar Cardiovascular: normal rate Abdomen: soft, non tender, other - GT tube Genitourinary: other - Hinkle catheter, hematuria Extremities: no edema, other - R knee arthritic changes Neurologic/Psychiatric: aphasia Laboratory Tests Test 06/15/20 11:13 06/15/20 17:22 06/15/20 20:34 06/15/20 23:08 POC Whole Blood Glucose 163 MG/DL (74-106) H 144 MG/DL (74-106) H 131 MG/DL (74-106) H 149 MG/DL (74-106) H Test 06/16/20 05:05 06/16/20 07:10 POC Whole Blood Glucose 170 MG/DL (74-106) H White Blood Count 26.1 K/UL (4.8-10.8) *H Red Blood Count 4.02 M/UL (4.20-5.40) L Hemoglobin 10.4 G/DL (12.0-16.0) #L Hematocrit 31.2 % (37.0-47.0) L Mean Corpuscular Volume 78 FL (80-99) L Mean Corpuscular Hemoglobin 25.8 PG (27.0-31.0) L Mean Corpuscular Hemoglobin Concent 33.3 G/DL (32.0-36.0) Red Cell Distribution Width 14.8 % (11.6-14.8) Platelet Count 377 K/UL (150-450) Mean Platelet Volume 8.3 FL (6.5-10.1) Neutrophils (%) (Auto) % (45.0-75.0) Lymphocytes (%) (Auto) % (20.0-45.0) Monocytes (%) (Auto) % (1.0-10.0) Eosinophils (%) (Auto) % (0.0-3.0) Basophils (%) (Auto) % (0.0-2.0) Neutrophils % (Manual) Pending Lymphocytes % (Manual) Pending Platelet Estimate Pending Platelet Morphology Pending Current Medications Medications (Trade) Dose Ordered Sig/Cayden Route PRN Reason Start Time Stop Time Status Last Admin Dose Admin Acetaminophen (Tylenol) 650 mg Q4H PRN GT Pain 05/26/20 07:45 06/25/20 07:44 06/13/20 17:57 Ascorbic Acid (Vitamin C) 250 mg DAILY GT 05/28/20 09:00 06/27/20 08:59 06/16/20 09:51 Cefepime HCl 1 gm/ Dextrose 55 ml @ 110 mls/hr Q24H IVPB 06/15/20 09:00 06/22/20 08:59 06/16/20 09:59 Clonidine HCl (Catapres Tab) 0.1 mg Q4H PRN ORAL for sbp>150 06/03/20 09:00 09/01/20 08:59 06/11/20 05:49 Dextrose (Dextrose 50%) 25 ml Q30M PRN IV Hypoglycemia 05/26/20 07:30 08/24/20 07:29 Dextrose (Dextrose 50%) 50 ml Q30M PRN IV Hypoglycemia 05/26/20 07:30 08/24/20 07:29 Insulin Aspart (NovoLOG) Q6HR SUBQ 05/26/20 12:00 08/24/20 11:59 06/16/20 05:07 Insulin Detemir (Levemir) 24 units EVERY 12 HOURS SUBQ 06/16/20 09:00 09/14/20 08:59 06/16/20 10:03 Isosorbide Dinitrate (Isordil) 20 mg THREE TIMES A DAY GT 06/02/20 13:00 07/02/20 12:59 06/16/20 09:52 Linezolid (Zyvox) 600 mg EVERY 12 HOURS ORAL 06/13/20 11:30 06/18/20 11:29 06/16/20 09:51 Metoprolol Tartrate (Lopressor) 50 mg EVERY 8 HOURS GT 05/28/20 22:00 08/26/20 21:59 06/16/20 05:07 Pantoprazole (Protonix) 40 mg DAILY IVP 05/26/20 09:00 06/25/20 08:59 06/16/20 09:59 Colby Rock MD Jun 16, 2020 10:25
[2020-06-16 11:28] VITALS: BP 133/63
[2020-06-16 13:27] LABS: APPEARANCE,URINE CLOUDY; BILIRUBIN, URINE NEGATIVE (NEGATIVE); GLUCOSE, URINE (UA) NEGATIVE (NEGATIVE); KETONES,URINE 1+ (NEGATIVE); LEUKOCYTE ESTERASE ,URINE 3+ (NEGATIVE); NITRITE,URINE POSITIVE (NEGATIVE); PH,URINE 5 (4.5-8.0); PROTEIN,URINE 3+ (NEGATIVE); UROBILINOGEN,URINE 1 MG/DL (0.0-1.0)
[2020-06-16 13:35] LABS: COLOR,URINE BROWN
[2020-06-16 16:00] VITALS: BP 120/63
[2020-06-16 20:00] VITALS: BP 115/64
[2020-06-16] MEDS: Acetaminophen 650mg/20.3ml GT PRN (22:01)
[2020-06-17] VITALS: BP 122/57
--- NOTE | 2020-06-17 00:28 | Cardiology Progress Note ---
Subjective DATE OF SERVICE: Jun 16, 2020 On T-collar Continued with abnormal renal function Urine culture pending Still with hematuria; anticoagulation on hold. BP range elevated at times, but improving Glucose trend continues to be elevated. Sputum culture A.baumanni Monitor: Sinus with PAFIb and short runs of aberrancy. CT scan: Pulmonary edema and pleural effusion Wound with abscess or gas forming organisms Objective Last 24 Hour Vital Signs Date Time Temp Pulse Resp B/P (MAP) Pulse Ox O2 Delivery O2 Flow Rate FiO2 06/16/20 22:31 98.1 06/16/20 22:01 90 115/64 06/16/20 21:00 Trach Collar 5.0 06/16/20 20:00 100.8 90 22 115/64 (81) 99 06/16/20 20:00 91 06/16/20 19:15 98 T-Piece 5.0 28 06/16/20 17:44 120/63 06/16/20 16:00 90 06/16/20 16:00 99.3 95 22 120/63 (82) 97 06/16/20 14:10 133/63 06/16/20 14:10 92 133/63 06/16/20 13:23 97 T-Piece 5.0 28 06/16/20 12:00 92 06/16/20 11:28 99.1 94 20 133/63 (86) 97 06/16/20 09:52 132/64 06/16/20 09:00 Trach Collar 5.0 06/16/20 08:15 98 T-Piece 5.0 28 06/16/20 08:00 88 06/16/20 08:00 99.3 89 20 126/67 (86) 95 06/16/20 05:07 93 132/64 06/16/20 04:00 98.6 92 22 130/64 (86) 97 06/16/20 04:00 92 06/16/20 01:13 98 T-Piece 5.0 28 ROS: no change from my assessment of 05/25/20 - remains unobtainable from patient HEENT: normal ENT inspection, Thin Trach secretions RHYTHM: NSR, PACs LUNGS: diminished breath sounds - left, bilateral rhonchi CARDIAC: normal rate, regular rhythm, normal S1 and S2, arrhythmia ABDOMEN: normal bowel sounds, non tender, soft, G-Tube intact EXTREMITIES: trace edema, other - sacral decub. noncommunicative Laboratory Tests Test 06/16/20 05:05 06/16/20 07:10 06/16/20 11:56 06/16/20 13:00 POC Whole Blood Glucose 170 MG/DL (74-106) H 192 MG/DL (74-106) H White Blood Count 26.1 K/UL (4.8-10.8) *H Red Blood Count 4.02 M/UL (4.20-5.40) L Hemoglobin 10.4 G/DL (12.0-16.0) #L Hematocrit 31.2 % (37.0-47.0) L Mean Corpuscular Volume 78 FL (80-99) L Mean Corpuscular Hemoglobin 25.8 PG (27.0-31.0) L Mean Corpuscular Hemoglobin Concent 33.3 G/DL (32.0-36.0) Red Cell Distribution Width 14.8 % (11.6-14.8) Platelet Count 377 K/UL (150-450) Mean Platelet Volume 8.3 FL (6.5-10.1) Neutrophils (%) (Auto) % (45.0-75.0) Lymphocytes (%) (Auto) % (20.0-45.0) Monocytes (%) (Auto) % (1.0-10.0) Eosinophils (%) (Auto) % (0.0-3.0) Basophils (%) (Auto) % (0.0-2.0) Differential Total Cells Counted 100 Neutrophils % (Manual) 88 % (45-75) H Lymphocytes % (Manual) 5 % (20-45) L Monocytes % (Manual) 5 % (1-10) Eosinophils % (Manual) 2 % (0-3) Basophils % (Manual) 0 % (0-2) Band Neutrophils 0 % (0-8) Nucleated Red Blood Cells 1 /100 WBC Platelet Estimate Adequate Platelet Morphology Normal Hypochromasia 1+ Microcytosis 1+ Spherocytes 1+ Urine Color Brown Urine Appearance Cloudy Urine pH 5 (4.5-8.0) Urine Specific [place] 1.015 (1.005-1.035) Urine Protein 3+ (NEGATIVE) H Urine Glucose (UA) Negative (NEGATIVE) Urine Ketones 1+ (NEGATIVE) H Urine Blood 5+ (NEGATIVE) H Urine Nitrite Positive (NEGATIVE) H Urine Bilirubin Negative (NEGATIVE) Urine Urobilinogen 1 MG/DL (0.0-1.0) H Urine Leukocyte Esterase 3+ (NEGATIVE) H Urine RBC 30-40 /HPF (0 - 2) H Urine WBC Tntc /HPF (0 - 2) H Urine Squamous Epithelial Cells Few /LPF (NONE/OCC) Urine Bacteria Many /HPF (NONE) H Urine Yeast Few /HPF (NONE) H Test 06/16/20 17:29 06/16/20 22:06 POC Whole Blood Glucose 212 MG/DL (74-106) H 209 MG/DL (74-106) H Assessment/Plan Assessment/Plan Healthcare associated PNA Hospital acquired UTI Left pleural effusion Acute myocardial ischemia with possible NSTE myocardial infarction Sepsis Respiratory failure Hypertension/HHD with elev BP Parox AFib 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 Titrate CV regimen based on clinical parameters - continue current antianginal regimen, including beta pietro. No need for statin Titrate insulin rx - advancing levemir. Wound care Monitor hemoglobin. Consider renal consult John Heard MD Jun 17, 2020 00:28
[2020-06-17] MEDS: NovoLOG Insulin Flexpen SUBQ SCH ×5 (00:37→23:44)
[2020-06-17 04:00] VITALS: BP 141/80
[2020-06-17] MEDS: Metoprolol Tartrate 50mg tab GT SCH ×3 (06:21→23:45)
[2020-06-17 08:00] VITALS: BP 138/81
--- NOTE | 2020-06-17 08:09 | Pulmonology Progress Note ---
Subjective ROS Limited/Unobtainable: Yes Constitutional: Denies: fever Allergies: Coded Allergies: No Known Allergies (Unverified , 05/15/20) Subjective care noted elevated ESR and osteo elevated wbc Objective Last 24 Hour Vital Signs Date Time Temp Pulse Resp B/P (MAP) Pulse Ox O2 Delivery O2 Flow Rate FiO2 06/17/20 06:21 87 141/80 06/17/20 04:00 86 06/17/20 04:00 97.7 87 23 141/80 (100) 98 06/17/20 01:15 98 T-Piece 5.0 28 06/17/20 00:00 100.4 84 21 122/57 (78) 97 06/17/20 00:00 84 06/16/20 22:31 98.1 06/16/20 22:01 90 115/64 06/16/20 21:00 Trach Collar 5.0 06/16/20 20:00 100.8 90 22 115/64 (81) 99 06/16/20 20:00 91 06/16/20 19:15 98 T-Piece 5.0 28 06/16/20 17:44 120/63 06/16/20 16:00 90 06/16/20 16:00 99.3 95 22 120/63 (82) 97 06/16/20 14:10 133/63 06/16/20 14:10 92 133/63 06/16/20 13:23 97 T-Piece 5.0 28 06/16/20 12:00 92 06/16/20 11:28 99.1 94 20 133/63 (86) 97 06/16/20 09:52 132/64 06/16/20 09:00 Trach Collar 5.0 06/16/20 08:15 98 T-Piece 5.0 28 Intake and Output 06/16/20 06/17/20 19:00 07:00 Intake Total 50 ml Output Total 500 ml 1200 ml Balance -500 ml -1150 ml Tube Feeding 50 ml Output Urine Total 500 ml 1200 ml # Bowel Movements 2 2 Objective WDWN NAD trach reduced breath sounds bilaterally without rhonchi [id number] without MRG NABS nontender GT no CCE withdrawn Microbiology Date/Time Source Procedure Growth Status 06/16/20 13:00 Indwelling Cath Urine Culture - Preliminary Resulted Laboratory Tests 06/16/20 11:56: POC Whole Blood Glucose 192H 06/16/20 13:00: Urine Color Brown, Urine Appearance Cloudy, Urine pH 5, Urine Specific [place] 1.015, Urine Protein 3+H, Urine Glucose (UA) Negative, Urine Ketones 1+H, Urine Blood 5+H, Urine Nitrite PositiveH, Urine Bilirubin Negative, Urine Urobilinogen 1H, Urine Leukocyte Esterase 3+H, Urine RBC 30-40H, Urine WBC TntcH, Urine Squamous Epithelial Cells Few, Urine Bacteria ManyH, Urine Yeast FewH 06/16/20 17:29: POC Whole Blood Glucose 212H 06/16/20 22:06: POC Whole Blood Glucose 209H 06/17/20 00:31: POC Whole Blood Glucose 200H 06/17/20 06:09: POC Whole Blood Glucose 182H Current Medications Medications (Trade) Dose Ordered Sig/Cayden Route PRN Reason Start Time Stop Time Status Last Admin Dose Admin Acetaminophen (Tylenol) 650 mg Q4H PRN GT Pain 05/26/20 07:45 06/25/20 07:44 06/16/20 22:01 Ascorbic Acid (Vitamin C) 250 mg DAILY GT 05/28/20 09:00 06/27/20 08:59 06/16/20 09:51 Cefepime HCl 1 gm/ Dextrose 55 ml @ 110 mls/hr Q24H IVPB 06/15/20 09:00 06/22/20 08:59 06/16/20 09:59 Clonidine HCl (Catapres Tab) 0.1 mg Q4H PRN ORAL for sbp>150 06/03/20 09:00 09/01/20 08:59 06/11/20 05:49 Dextrose (Dextrose 50%) 25 ml Q30M PRN IV Hypoglycemia 05/26/20 07:30 08/24/20 07:29 Dextrose (Dextrose 50%) 50 ml Q30M PRN IV Hypoglycemia 05/26/20 07:30 08/24/20 07:29 Insulin Aspart (NovoLOG) Q6HR SUBQ 05/26/20 12:00 08/24/20 11:59 06/17/20 06:20 Insulin Detemir (Levemir) 24 units EVERY 12 HOURS SUBQ 06/16/20 09:00 09/14/20 08:59 06/16/20 22:07 Isosorbide Dinitrate (Isordil) 20 mg THREE TIMES A DAY GT 06/02/20 13:00 07/02/20 12:59 06/16/20 17:44 Linezolid (Zyvox) 600 mg EVERY 12 HOURS ORAL 06/13/20 11:30 06/18/20 11:29 06/16/20 22:01 Metoprolol Tartrate (Lopressor) 50 mg EVERY 8 HOURS GT 05/28/20 22:00 08/26/20 21:59 06/17/20 06:21 Pantoprazole (Protonix) 40 mg DAILY IVP 05/26/20 09:00 06/25/20 08:59 06/16/20 09:59 Assessment/Plan Assessment/Plan IMPRESSION leukocytosis, worse Afib, chronic encephalopathy trach respiratory failure elevated troponin anemia bacteremia- staph fevers better hypertension osteo hematuria diabetes PLAN CT with osteo ESR elevated wbc not improving respiratory care snf meds noted suction monitor cultures eliquis resume once confirmed that hematuria resolved card follow up IV antibiotics and care ID follow up and recommendations - not stable for dc impression, plan, and exam edited and reviewed in detail care discussed with Fernie Ledezma MD Jun 17, 2020 08:09
[2020-06-17] MEDS: Pantoprazole Inj IVP SCH (08:55)
[2020-06-17] MEDS: Ascorbic Acid 500mg tab GT SCH (08:56)
[2020-06-17] MEDS: Cefepime 1gm in D5W 55ml IVPB SCH (08:57)
[2020-06-17] MEDS: Levemir Flexpen SUBQ SCH ×2 (09:01→23:43)
--- NOTE | 2020-06-17 10:55 | Infectious Diseases Prog Note ---
Assessment/Plan Assessment/Plan antibiotics : linezolid, cefepime A 1. acenitobacter pneumonia s/p rx 2. + blood cultures with coag neg staph likely contaminated 3. leucocytosis improving 4. diabetes mellitus 5. hypertension 6. CVA 7. dementia 8. coccygeal osteomyelitis s/p debridement 9. renal failure P 1. continue cefepime, linezolid 2. will follow up cultures Subjective ROS Limited/Unobtainable: Yes Allergies: Coded Allergies: No Known Allergies (Unverified , 05/15/20) Objective Last 24 Hour Vital Signs Date Time Temp Pulse Resp B/P (MAP) Pulse Ox O2 Delivery O2 Flow Rate FiO2 06/17/20 09:00 Trach Collar 5.0 06/17/20 08:56 138/81 06/17/20 08:00 83 06/17/20 08:00 98.0 84 21 138/81 (100) 98 06/17/20 06:21 87 141/80 06/17/20 04:00 86 06/17/20 04:00 97.7 87 23 141/80 (100) 98 06/17/20 01:15 98 T-Piece 5.0 28 06/17/20 00:00 100.4 84 21 122/57 (78) 97 06/17/20 00:00 84 06/16/20 22:31 98.1 06/16/20 22:01 90 115/64 06/16/20 21:00 Trach Collar 5.0 06/16/20 20:00 100.8 90 22 115/64 (81) 99 06/16/20 20:00 91 06/16/20 19:15 98 T-Piece 5.0 28 06/16/20 17:44 120/63 06/16/20 16:00 90 06/16/20 16:00 99.3 95 22 120/63 (82) 97 06/16/20 14:10 133/63 06/16/20 14:10 92 133/63 06/16/20 13:23 97 T-Piece 5.0 28 06/16/20 12:00 92 06/16/20 11:28 99.1 94 20 133/63 (86) 97 Height (Feet): 5 Height (Inches): 3.00 Weight (Pounds): 157 HEENT: status post trach Respiratory/Chest: lungs clear Cardiovascular: normal rate, regular rhythm, no gallop/murmur Abdomen: soft, non tender, other - GT Extremities: no edema Microbiology Date/Time Source Procedure Growth Status 06/16/20 13:00 Indwelling Cath Urine Culture - Preliminary Resulted Laboratory Tests Test 06/16/20 11:56 06/16/20 13:00 06/16/20 17:29 06/16/20 22:06 POC Whole Blood Glucose 192 MG/DL (74-106) H 212 MG/DL (74-106) H 209 MG/DL (74-106) H Urine Color Brown Urine Appearance Cloudy Urine pH 5 (4.5-8.0) Urine Specific [place] 1.015 (1.005-1.035) Urine Protein 3+ (NEGATIVE) H Urine Glucose (UA) Negative (NEGATIVE) Urine Ketones 1+ (NEGATIVE) H Urine Blood 5+ (NEGATIVE) H Urine Nitrite Positive (NEGATIVE) H Urine Bilirubin Negative (NEGATIVE) Urine Urobilinogen 1 MG/DL (0.0-1.0) H Urine Leukocyte Esterase 3+ (NEGATIVE) H Urine RBC 30-40 /HPF (0 - 2) H Urine WBC Tntc /HPF (0 - 2) H Urine Squamous Epithelial Cells Few /LPF (NONE/OCC) Urine Bacteria Many /HPF (NONE) H Urine Yeast Few /HPF (NONE) H Test 06/17/20 00:31 06/17/20 06:09 POC Whole Blood Glucose 200 MG/DL (74-106) H 182 MG/DL (74-106) H Current Medications Medications (Trade) Dose Ordered Sig/Cayden Route PRN Reason Start Time Stop Time Status Last Admin Dose Admin Acetaminophen (Tylenol) 650 mg Q4H PRN GT Pain 05/26/20 07:45 06/25/20 07:44 06/16/20 22:01 Ascorbic Acid (Vitamin C) 250 mg DAILY GT 05/28/20 09:00 06/27/20 08:59 06/17/20 08:56 Cefepime HCl 1 gm/ Dextrose 55 ml @ 110 mls/hr Q24H IVPB 06/15/20 09:00 06/22/20 08:59 06/17/20 08:57 Clonidine HCl (Catapres Tab) 0.1 mg Q4H PRN ORAL for sbp>150 06/03/20 09:00 09/01/20 08:59 06/11/20 05:49 Dextrose (Dextrose 50%) 25 ml Q30M PRN IV Hypoglycemia 05/26/20 07:30 08/24/20 07:29 Dextrose (Dextrose 50%) 50 ml Q30M PRN IV Hypoglycemia 05/26/20 07:30 08/24/20 07:29 Insulin Aspart (NovoLOG) Q6HR SUBQ 05/26/20 12:00 08/24/20 11:59 06/17/20 06:20 Insulin Detemir (Levemir) 24 units EVERY 12 HOURS SUBQ 06/16/20 09:00 09/14/20 08:59 06/17/20 09:01 Isosorbide Dinitrate (Isordil) 20 mg THREE TIMES A DAY GT 06/02/20 13:00 07/02/20 12:59 06/17/20 08:56 Linezolid (Zyvox) 600 mg EVERY 12 HOURS ORAL 06/13/20 11:30 06/18/20 11:29 06/17/20 08:55 Metoprolol Tartrate (Lopressor) 50 mg EVERY 8 HOURS GT 05/28/20 22:00 08/26/20 21:59 06/17/20 06:21 Pantoprazole (Protonix) 40 mg DAILY IVP 05/26/20 09:00 06/25/20 08:59 06/17/20 08:55 Mina Salamanca MD Jun 17, 2020 10:55
--- NOTE | 2020-06-17 11:34 | Surgery Progress Note ---
Surgery Progress Note Subjective Procedure Performed Excisional debridement of sacral decubitus ulcer 10 cm x 10 cm x 4 cm deep down to bone Additional Comments leukocytosis trending down wound okay exam unchanged ua noted Objective Last 24 Hour Vital Signs Date Time Temp Pulse Resp B/P (MAP) Pulse Ox O2 Delivery O2 Flow Rate FiO2 06/17/20 09:00 Trach Collar 5.0 06/17/20 08:56 138/81 06/17/20 08:00 83 06/17/20 08:00 98.0 84 21 138/81 (100) 98 06/17/20 07:45 95 T-Piece 5.0 28 06/17/20 06:21 87 141/80 06/17/20 04:00 86 06/17/20 04:00 97.7 87 23 141/80 (100) 98 06/17/20 01:15 98 T-Piece 5.0 28 06/17/20 00:00 100.4 84 21 122/57 (78) 97 06/17/20 00:00 84 06/16/20 22:31 98.1 06/16/20 22:01 90 115/64 06/16/20 21:00 Trach Collar 5.0 06/16/20 20:00 100.8 90 22 115/64 (81) 99 06/16/20 20:00 91 06/16/20 19:15 98 T-Piece 5.0 28 06/16/20 17:44 120/63 06/16/20 16:00 90 06/16/20 16:00 99.3 95 22 120/63 (82) 97 06/16/20 14:10 133/63 06/16/20 14:10 92 133/63 06/16/20 13:23 97 T-Piece 5.0 28 06/16/20 12:00 92 I&O Intake and Output 06/16/20 06/17/20 19:00 07:00 Intake Total 50 ml Output Total 500 ml 1200 ml Balance -500 ml -1150 ml Tube Feeding 50 ml Output Urine Total 500 ml 1200 ml # Bowel Movements 2 2 Dressing: saturated Cardiovascular: RSR Respiratory: decreased breath sounds Abdomen: soft, non-tender, present bowel sounds Extremities: no tenderness, no cyanosis Laboratory Tests Test 06/16/20 11:56 06/16/20 13:00 06/16/20 17:29 06/16/20 22:06 POC Whole Blood Glucose 192 MG/DL (74-106) H 212 MG/DL (74-106) H 209 MG/DL (74-106) H Urine Color Brown Urine Appearance Cloudy Urine pH 5 (4.5-8.0) Urine Specific [place] 1.015 (1.005-1.035) Urine Protein 3+ (NEGATIVE) H Urine Glucose (UA) Negative (NEGATIVE) Urine Ketones 1+ (NEGATIVE) H Urine Blood 5+ (NEGATIVE) H Urine Nitrite Positive (NEGATIVE) H Urine Bilirubin Negative (NEGATIVE) Urine Urobilinogen 1 MG/DL (0.0-1.0) H Urine Leukocyte Esterase 3+ (NEGATIVE) H Urine RBC 30-40 /HPF (0 - 2) H Urine WBC Tntc /HPF (0 - 2) H Urine Squamous Epithelial Cells Few /LPF (NONE/OCC) Urine Bacteria Many /HPF (NONE) H Urine Yeast Few /HPF (NONE) H Test 06/17/20 00:31 06/17/20 06:09 POC Whole Blood Glucose 200 MG/DL (74-106) H 182 MG/DL (74-106) H Assessment Post-op Diagnosis Stage IV sacral decubitus ulcer Plan Problems: (1) Anemia (2) Sepsis Assessment & Plan: 74-year-old female with medical comorbidities present with leukocytosis anemia abnormal labs hypoalbuminemia failure to thrive malnutrition worsening decubitus ulcer admitted further care and management was prior on vancomycin now on IV antibiotics admitted and under monitoring. Full evaluation does not at the bedside and evaluation performed. Trach stable PEG tube stable skin deteriorating per her turgor worsening decubitus ulcer malnutrition continue tube feeds as tolerated continue antibiotics wounds unlikely etiology of patient's sepsis we will monitor and follow with recommendations trend labs thank you for letting participate patient's care improving 06/13 acute severe leukocytosis abx changed wound improved since debridement will monitor DAILY ESTIMATED NEEDS: Needs based on Wound, DM/ 57kg abw 25-30 kcals/kg 4781-2031 total kcals 1.25-1.8 g protein/kg 71-103 g total protein 20-25 mL/kg 4674-3449 total fluid mLs NUTRITION DIAGNOSIS: * Increased kcal/prot needs R/T wound healing as evidenced by pt admiteed w/ unstageable sacral wound, refer to full wound care eval. * Swallowing difficulty R/T dysphagia, respiratory status as evidenced by pt on T-collar, PEG dep. CURRENT TF:Glucerna 1.2 @ 50ml/hr x 24 hrs ENTERAL NUTRITION RECOMMENDATIONS: Glucerna 1.2 @ 50ml/hr x 24 hrs to provide 1200ml, 1440kcal, 72g, 966ml free water * Maintain current TF * HOB over 30 degrees/ water flush per MD ADDITIONAL RECOMMENDATIONS: * Calibrated bedscale wt -w/ added p200 mattress + pump * Wound healing: TF @ goal will provide 100% RDI Continue Vit C 250mg QD + add Endy BID via PEG * Monitor lytes closely w/ Lasix, replete as needed * Monitor BGs, rec increasing Levemir (POC glu [id number]) . (3) Elevated troponin (4) Pneumonia (5) Encounter for generalized patient complaints (6) Decubitus skin ulcer Assessment & Plan: Patient presented on admission with an Unstageable Sacral Pressure injury(L)9.8cm x (W)6.7cm. Base of wound is 80% necrotic ,20% mixed slough ,beefy red. Small amt serous exudate. Mild odor noted. Borders are macerated with surrounding maroon and indurated borders. MASD noted to Mons-pubis outer aspects of R and L buttocks. Perineum and bilat ischial tuberosities. Affected areas mentioned are erythematous, macerated with scattered satellite lesions. Non-Blanchable erythema without induration or fluctuance R and L Heels. Skin assessed under tracheal collar and no evidence of skin breakdown noted. Assessed pt and necrotic base of Sacral wound crosshatched by Md. Unstageable Sacral Pressure Injury (L)9.8cm x (W)7cm. 90% dry necrotic cap ,10% lj borders. Edges are adherent to base of wound. Periwound is pink and dry. No odor or exudate noted. Small external haemorrhoid with small amt bleeding noted. R and L heels are both blanchable. No new skin concerns noted. Wound Tx are effective and continued as ordered . All wound prevention protocols continued as care-planned. Pt has an APM/DANIEL Mattress overlay and is being positioned as per tolerance and within protocols. s/p excisional debridement of stage 4 decubitus ulcer Tx.Plan: Cleanse Sacral wound with Saline. Apply TheraHoney. Apply Moisture Barrier Paste periwound. Cover with Optifoam Drsg. Change Daily and prn. Apply Moisture Barrier Paste to Mons Pubis, Perineum and buttocks with each Incontinence care. Apply Cavilon Skin Barrier to Both heels and Malleoli. Cover each site with Optifoam Drsg. Change every 7 days and prn. Reposition at least every 2hours or as tolerated. Off-load heels with Pillow. Reposition at least every 2hours or as tolerated. APM/DANIEL mattress overlay. Adrian Gar Jun 17, 2020 11:34
[2020-06-17 12:00] VITALS: BP 140/85
--- NOTE | 2020-06-17 12:22 | Cardiology Report ---
APPROVED REPORT EKG Measurement Heart [id number] <Conclusion> Normal sinus rhythm Right bundle branch block Left anterior fascicular block Bifascicular block Minimal voltage criteria for LVH, may be normal variant Abnormal ECG
[2020-06-17 16:00] VITALS: BP 135/82
[2020-06-17 20:00] VITALS: BP 137/69
[2020-06-18] VITALS: BP 156/72
--- NOTE | 2020-06-18 03:09 | Cardiology Progress Note ---
Subjective DATE OF SERVICE: Jun 17, 2020 On T-collar Continued with abnormal renal function Still with hematuria; anticoagulation on hold. BP range elevated at times, but improving Glucose trend continues to be elevated. Sputum culture A.baumanni Monitor: Sinus with PAFIb and short runs of aberrancy. CT scan: Pulmonary edema and pleural effusion Wound with abscess or gas forming organisms Objective Last 24 Hour Vital Signs Date Time Temp Pulse Resp B/P (MAP) Pulse Ox O2 Delivery O2 Flow Rate FiO2 06/18/20 01:06 97 T-Piece 5.0 28 06/18/20 00:00 93 06/17/20 23:45 91 137/69 06/17/20 20:00 87 06/17/20 20:00 98.4 96 20 137/69 (91) 97 06/17/20 19:46 98 T-Piece 5.0 28 06/17/20 18:29 135/82 06/17/20 16:00 84 06/17/20 16:00 98.3 95 21 135/82 (99) 97 06/17/20 13:30 97 T-Piece 5.0 28 06/17/20 13:09 86 140/85 06/17/20 13:08 140/85 06/17/20 12:00 85 06/17/20 12:00 98.0 86 21 140/85 (103) 98 06/17/20 09:00 Trach Collar 5.0 06/17/20 08:56 138/81 06/17/20 08:00 83 06/17/20 08:00 98.0 84 21 138/81 (100) 98 06/17/20 07:45 95 T-Piece 5.0 28 06/17/20 06:21 87 141/80 06/17/20 04:00 86 06/17/20 04:00 97.7 87 23 141/80 (100) 98 ROS: no change from my assessment of 05/25/20 - remains unobtainable from patient HEENT: normal ENT inspection, Thin Trach secretions RHYTHM: NSR, PACs LUNGS: diminished breath sounds - left, bilateral rhonchi CARDIAC: normal rate, regular rhythm, normal S1 and S2, arrhythmia ABDOMEN: normal bowel sounds, non tender, soft, G-Tube intact EXTREMITIES: trace edema, other - sacral decub. noncommunicative Laboratory Tests Test 06/17/20 06:09 06/17/20 11:19 06/17/20 17:35 06/17/20 23:42 POC Whole Blood Glucose 182 MG/DL (74-106) H 195 MG/DL (74-106) H 199 MG/DL (74-106) H Pending Microbiology Date/Time Source Procedure Growth Status 06/16/20 13:00 Indwelling Cath Urine Culture - Preliminary Resulted Assessment/Plan Assessment/Plan [facility] acquired UTI Left pleural effusion Acute myocardial ischemia with possible NSTE myocardial infarction Sepsis Respiratory failure Hypertension/HHD with elev BP Parox AFib Conduction system disease with bifasc block Chr diastolic CHF Low lipid parameters NSVT IRDM with hyperglycemia still Hypomagnesemia Contaminant in positive blood cultures Osteomyelitis Acute renal faillure Hyperkalemia Hematuria Resp Rx Antibiotics per ID mobile device developer Continue off diuretics and ACEi IVF Anticoagulation on hold due to bleeding - consider resumption if UA clears Titrate CV regimen based on clinical parameters - continue current antianginal regimen, including beta pietro. No need for statin Titrate insulin rx - advancing levemir. Wound care Monitor hemoglobin. Consider renal consult John Heard MD Jun 18, 2020 03:09
[2020-06-18 04:00] VITALS: BP 160/80
[2020-06-18] MEDS: Metoprolol Tartrate 50mg tab GT SCH ×3 (06:51→22:47)
[2020-06-18] MEDS: NovoLOG Insulin Flexpen SUBQ SCH ×4 (06:55→23:37)
[2020-06-18 08:00] VITALS: BP 154/77
[2020-06-18 08:23] LABS: HEMATOCRIT 31.8 % (37.0-47.0); HEMOGLOBIN 10.4 G/DL (12.0-16.0); MEAN CORPUSCULAR VOLUME 78 FL (80-99); PLATELET COUNT 370 K/UL (150-450); RED BLOOD COUNT 4.08 M/UL (4.20-5.40); RED CELL DISTRIBUTION WIDTH 15.7 % (11.6-14.8)
[2020-06-18 08:27] LABS: WHITE BLOOD COUNT 24.5 K/UL (4.8-10.8)
[2020-06-18 08:31] LABS: CALCIUM 8.2 MG/DL (8.5-10.1); CREATININE 2.2 MG/DL (0.55-1.30); POTASSIUM 4.5 MMOL/L (3.5-5.1)
[2020-06-18] MEDS: Cefepime 1gm in D5W 55ml IVPB SCH (09:10)
[2020-06-18] MEDS: Ascorbic Acid 500mg tab GT SCH (09:10)
[2020-06-18] MEDS: Pantoprazole Inj IVP SCH (09:10)
[2020-06-18 09:20] LABS: APPEARANCE,URINE CLOUDY; BILIRUBIN, URINE NEGATIVE (NEGATIVE); GLUCOSE, URINE (UA) NEGATIVE (NEGATIVE); KETONES,URINE NEGATIVE (NEGATIVE); LEUKOCYTE ESTERASE ,URINE 3+ (NEGATIVE); NITRITE,URINE NEGATIVE (NEGATIVE); PH,URINE 5 (4.5-8.0); PROTEIN,URINE 3+ (NEGATIVE); UROBILINOGEN,URINE NORMAL MG/DL (0.0-1.0)
[2020-06-18] MEDS: Levemir Flexpen SUBQ SCH ×2 (09:27→20:39)
[2020-06-18 09:34] LABS: COLOR,URINE BROWN
--- NOTE | 2020-06-18 10:47 | Pulmonology Progress Note ---
Subjective ROS Limited/Unobtainable: Yes Constitutional: Denies: fever Allergies: Coded Allergies: No Known Allergies (Unverified , 05/15/20) Objective Last 24 Hour Vital Signs Date Time Temp Pulse Resp B/P (MAP) Pulse Ox O2 Delivery O2 Flow Rate FiO2 06/18/20 09:10 154/77 06/18/20 08:20 98 T-Piece 5.0 28 06/18/20 08:00 98.1 82 20 154/77 (102) 100 06/18/20 07:51 82 06/18/20 06:51 87 160/80 06/18/20 04:00 98.1 87 20 160/80 (106) 98 06/18/20 04:00 87 06/18/20 01:06 97 T-Piece 5.0 28 06/18/20 00:00 93 06/18/20 00:00 99.0 90 19 156/72 (100) 98 06/17/20 23:45 91 137/69 06/17/20 21:00 Trach Collar 6.0 06/17/20 20:00 87 06/17/20 20:00 98.4 96 20 137/69 (91) 97 06/17/20 19:46 98 T-Piece 5.0 28 06/17/20 18:29 135/82 06/17/20 16:00 84 06/17/20 16:00 98.3 95 21 135/82 (99) 97 06/17/20 13:30 97 T-Piece 5.0 28 06/17/20 13:09 86 140/85 06/17/20 13:08 140/85 06/17/20 12:00 85 06/17/20 12:00 98.0 86 21 140/85 (103) 98 Intake and Output 06/17/20 06/18/20 19:00 07:00 Intake Total 50 ml 150 ml Output Total 840 ml 600 ml Balance -790 ml -450 ml Free Water 100 ml Tube Feeding 50 ml 50 ml Output Urine Total 840 ml 600 ml # Bowel Movements 2 Microbiology Date/Time Source Procedure Growth Status 06/16/20 13:00 Indwelling Cath Urine Culture - Preliminary Yeast Species Resulted Laboratory Tests 06/17/20 11:19: POC Whole Blood Glucose 195H 06/17/20 17:35: POC Whole Blood Glucose 199H 06/17/20 23:42: POC Whole Blood Glucose [Pending] 06/18/20 05:50: White Blood Count 24.5*H, Red Blood Count 4.08L, Hemoglobin 10.4L, Hematocrit 31.8L, Mean Corpuscular Volume 78L, Mean Corpuscular Hemoglobin 25.6L, Mean Corpuscular Hemoglobin Concent 32.8, Red Cell Distribution Width 15.7H, Platelet Count 370, Mean Platelet Volume 7.1, Neutrophils (%) (Auto) , Lymphocytes (%) (Auto) , Monocytes (%) (Auto) , Eosinophils (%) (Auto) , Basophils (%) (Auto) , Differential Total Cells Counted 100, Neutrophils % (Manual) 87H, Lymphocytes % (Manual) 7L, Monocytes % (Manual) 2, Eosinophils % (Manual) 0, Basophils % (Manual) 0, Metamyelocytes % 1H, Myelocytes % 1H, Band Neutrophils 2, Platelet Estimate Adequate, Platelet Morphology Normal, Anisocytosis 1+, Microcytosis 2+, Urine Color Brown, Urine Appearance Cloudy, Urine pH 5, Urine Specific [place] 1.015, Urine Protein 3+H, Urine Glucose (UA) Negative, Urine Ketones Negative, Urine Blood 5+H, Urine Nitrite Negative, Urine Bilirubin Negative, Urine Urobilinogen Normal, Urine Leukocyte Esterase 3+H, Urine RBC TntcH, Urine WBC TntcH, Urine Squamous Epithelial Cells Occasional, Urine Bacteria Few, Sodium Level 141, Potassium Level 4.5, Chloride Level 102, Carbon Dioxide Level 23, Anion Gap 16H, Blood Urea Nitrogen 99H, Creatinine 2.2H, Estimat Glomerular Filtration Rate 21.9, Glucose Level 196H, Calcium Level 8.2L, Magnesium Level 1.7L 06/18/20 06:16: POC Whole Blood Glucose [Pending] 06/18/20 09:26: POC Whole Blood Glucose [Pending] Current Medications Medications (Trade) Dose Ordered Sig/Cayden Route PRN Reason Start Time Stop Time Status Last Admin Dose Admin Acetaminophen (Tylenol) 650 mg Q4H PRN GT Pain 05/26/20 07:45 06/25/20 07:44 06/16/20 22:01 Ascorbic Acid (Vitamin C) 250 mg DAILY GT 05/28/20 09:00 06/27/20 08:59 06/18/20 09:10 Cefepime HCl 1 gm/ Dextrose 55 ml @ 110 mls/hr Q24H IVPB 06/15/20 09:00 06/22/20 08:59 06/18/20 09:10 Clonidine HCl (Catapres Tab) 0.1 mg Q4H PRN ORAL for sbp>150 06/03/20 09:00 09/01/20 08:59 06/11/20 05:49 Dextrose (Dextrose 50%) 25 ml Q30M PRN IV Hypoglycemia 05/26/20 07:30 08/24/20 07:29 Dextrose (Dextrose 50%) 50 ml Q30M PRN IV Hypoglycemia 05/26/20 07:30 08/24/20 07:29 Insulin Aspart (NovoLOG) Q6HR SUBQ 05/26/20 12:00 08/24/20 11:59 06/18/20 06:55 Insulin Detemir (Levemir) 24 units EVERY 12 HOURS SUBQ 06/16/20 09:00 09/14/20 08:59 06/18/20 09:27 Isosorbide Dinitrate (Isordil) 20 mg THREE TIMES A DAY GT 06/02/20 13:00 07/02/20 12:59 06/18/20 09:10 Linezolid (Zyvox) 600 mg EVERY 12 HOURS ORAL 06/13/20 11:30 06/19/20 11:29 06/18/20 09:10 Metoprolol Tartrate (Lopressor) 50 mg EVERY 8 HOURS GT 05/28/20 22:00 08/26/20 21:59 06/18/20 06:51 Pantoprazole (Protonix) 40 mg DAILY IVP 05/26/20 09:00 06/25/20 08:59 06/18/20 09:10 Assessment/Plan Assessment/Plan Pulmonary Progress Note Subjective ROS Limited/Unobtainable: Yes Allergies: Coded Allergies: No Known Allergies (Unverified , 05/15/20) Subjective care noted MDRO - Acinetobacter pneumonia wbc noted stable overnight Objective Vital Signs noted Objective WDWN NAD trach - t piece reduced breath sounds bilaterally [id number] without MRG NABS nontender GT no CCE withdrawn Laboratory Tests noted Assessment/Plan Assessment/Plan IMPRESSION leukocytosis, worse Afib, chronic encephalopathy trach respiratory failure elevated troponin anemia bacteremia- staph fevers better hypertension osteo hematuria diabetes PLAN CT with osteo ESR elevated wbc not improving respiratory care snf meds noted suction monitor cultures eliquis resume once confirmed that hematuria resolved card follow up IV antibiotics and care ID follow up and recommendations - not stable for dc impression, plan, and exam edited and reviewed in detail care discussed with John Wilson MD Jun 18, 2020 10:47
[2020-06-18 12:00] VITALS: BP 147/70
--- NOTE | 2020-06-18 15:09 | Surgery Progress Note ---
Surgery Progress Note Subjective Procedure Performed Excisional debridement of sacral decubitus ulcer 10 cm x 10 cm x 4 cm deep down to bone Additional Comments no acute events Objective Last 24 Hour Vital Signs Date Time Temp Pulse Resp B/P (MAP) Pulse Ox O2 Delivery O2 Flow Rate FiO2 06/18/20 13:50 147/70 06/18/20 13:49 85 147/70 06/18/20 13:17 98 T-Piece 5.0 28 06/18/20 12:00 98.1 85 18 147/70 (95) 99 06/18/20 11:40 87 06/18/20 09:10 154/77 06/18/20 09:00 Trach Collar 6.0 06/18/20 08:20 98 T-Piece 5.0 28 06/18/20 08:00 98.1 82 20 154/77 (102) 100 06/18/20 07:51 82 06/18/20 06:51 87 160/80 06/18/20 04:00 98.1 87 20 160/80 (106) 98 06/18/20 04:00 87 06/18/20 01:06 97 T-Piece 5.0 28 06/18/20 00:00 93 06/18/20 00:00 99.0 90 19 156/72 (100) 98 06/17/20 23:45 91 137/69 06/17/20 21:00 Trach Collar 6.0 06/17/20 20:00 87 06/17/20 20:00 98.4 96 20 137/69 (91) 97 06/17/20 19:46 98 T-Piece 5.0 28 06/17/20 18:29 135/82 06/17/20 16:00 84 06/17/20 16:00 98.3 95 21 135/82 (99) 97 I&O Intake and Output 06/17/20 06/18/20 19:00 07:00 Intake Total 50 ml 150 ml Output Total 840 ml 600 ml Balance -790 ml -450 ml Free Water 100 ml Tube Feeding 50 ml 50 ml Output Urine Total 840 ml 600 ml # Bowel Movements 2 Dressing: other Wound: other Cardiovascular: RSR Respiratory: decreased breath sounds Abdomen: soft, non-tender, present bowel sounds Extremities: no cyanosis Laboratory Tests Test 06/17/20 17:35 06/17/20 23:42 06/18/20 05:50 06/18/20 06:16 POC Whole Blood Glucose 199 MG/DL (74-106) H Pending Pending White Blood Count 24.5 K/UL (4.8-10.8) *H Red Blood Count 4.08 M/UL (4.20-5.40) L Hemoglobin 10.4 G/DL (12.0-16.0) L Hematocrit 31.8 % (37.0-47.0) L Mean Corpuscular Volume 78 FL (80-99) L Mean Corpuscular Hemoglobin 25.6 PG (27.0-31.0) L Mean Corpuscular Hemoglobin Concent 32.8 G/DL (32.0-36.0) Red Cell Distribution Width 15.7 % (11.6-14.8) H Platelet Count 370 K/UL (150-450) Mean Platelet Volume 7.1 FL (6.5-10.1) Neutrophils (%) (Auto) % (45.0-75.0) Lymphocytes (%) (Auto) % (20.0-45.0) Monocytes (%) (Auto) % (1.0-10.0) Eosinophils (%) (Auto) % (0.0-3.0) Basophils (%) (Auto) % (0.0-2.0) Differential Total Cells Counted 100 Neutrophils % (Manual) 87 % (45-75) H Lymphocytes % (Manual) 7 % (20-45) L Monocytes % (Manual) 2 % (1-10) Eosinophils % (Manual) 0 % (0-3) Basophils % (Manual) 0 % (0-2) Metamyelocytes % 1 % (0-0) H Myelocytes % 1 % (0-0) H Band Neutrophils 2 % (0-8) Platelet Estimate Adequate Platelet Morphology Normal Anisocytosis 1+ Microcytosis 2+ Urine Color Brown Urine Appearance Cloudy Urine pH 5 (4.5-8.0) Urine Specific [place] 1.015 (1.005-1.035) Urine Protein 3+ (NEGATIVE) H Urine Glucose (UA) Negative (NEGATIVE) Urine Ketones Negative (NEGATIVE) Urine Blood 5+ (NEGATIVE) H Urine Nitrite Negative (NEGATIVE) Urine Bilirubin Negative (NEGATIVE) Urine Urobilinogen Normal MG/DL (0.0-1.0) Urine Leukocyte Esterase 3+ (NEGATIVE) H Urine RBC Tntc /HPF (0 - 2) H Urine WBC Tntc /HPF (0 - 2) H Urine Squamous Epithelial Cells Occasional /LPF Urine Bacteria Few /HPF (NONE) Sodium Level 141 MMOL/L (136-145) Potassium Level 4.5 MMOL/L (3.5-5.1) Chloride Level 102 MMOL/L (98-107) Carbon Dioxide Level 23 MMOL/L (21-32) Anion Gap 16 mmol/L (5-15) H Blood Urea Nitrogen 99 mg/dL (7-18) H Creatinine 2.2 MG/DL (0.55-1.30) H Estimat Glomerular Filtration Rate 21.9 mL/min (>60) Glucose Level 196 MG/DL (74-106) H Calcium Level 8.2 MG/DL (8.5-10.1) L Magnesium Level 1.7 MG/DL (1.8-2.4) L Test 06/18/20 09:26 06/18/20 12:06 POC Whole Blood Glucose Pending Pending Assessment Post-op Diagnosis Stage IV sacral decubitus ulcer Plan Problems: (1) Anemia (2) Sepsis Assessment & Plan: 74-year-old female with medical comorbidities present with leukocytosis anemia abnormal labs hypoalbuminemia failure to thrive malnutrition worsening decubitus ulcer admitted further care and management was prior on vancomycin now on IV antibiotics admitted and under monitoring. Full evaluation does not at the bedside and evaluation performed. Trach stable PEG tube stable skin deteriorating per her turgor worsening decubitus ulcer malnutrition continue tube feeds as tolerated continue antibiotics wounds unlikely etiology of patient's sepsis we will monitor and follow with recommendations trend labs thank you for letting participate patient's care improving 06/13 acute severe leukocytosis abx changed wound improved since debridement will monitor DAILY ESTIMATED NEEDS: Needs based on Wound, DM/ 57kg abw 25-30 kcals/kg 4496-2440 total kcals 1.25-1.8 g protein/kg 71-103 g total protein 20-25 mL/kg 4440-1741 total fluid mLs NUTRITION DIAGNOSIS: * Increased kcal/prot needs R/T wound healing as evidenced by pt admiteed w/ unstageable sacral wound, refer to full wound care eval. * Swallowing difficulty R/T dysphagia, respiratory status as evidenced by pt on T-collar, PEG dep. CURRENT TF:Glucerna 1.2 @ 50ml/hr x 24 hrs ENTERAL NUTRITION RECOMMENDATIONS: Glucerna 1.2 @ 50ml/hr x 24 hrs to provide 1200ml, 1440kcal, 72g, 966ml free water * Maintain current TF * HOB over 30 degrees/ water flush per MD ADDITIONAL RECOMMENDATIONS: * Calibrated bedscale wt -w/ added p200 mattress + pump * Wound healing: TF @ goal will provide 100% RDI Continue Vit C 250mg QD + add Endy BID via PEG * Monitor lytes closely w/ Lasix, replete as needed * Monitor BGs, rec increasing Levemir (POC glu 373 310) . (3) Elevated troponin (4) Pneumonia (5) Encounter for generalized patient complaints (6) Decubitus skin ulcer Assessment & Plan: Patient presented on admission with an Unstageable Sacral Pressure injury(L)9.8cm x (W)6.7cm. Base of wound is 80% necrotic ,20% mixed slough ,beefy red. Small amt serous exudate. Mild odor noted. Borders are macerated with surrounding maroon and indurated borders. MASD noted to Mons-pubis outer aspects of R and L buttocks. Perineum and bilat ischial tuberosities. Affected areas mentioned are erythematous, macerated with scattered satellite lesions. Non-Blanchable erythema without induration or fluctuance R and L Heels. Skin assessed under tracheal collar and no evidence of skin breakdown noted. Assessed pt and necrotic base of Sacral wound crosshatched by Md. Unstageable Sacral Pressure Injury (L)9.8cm x (W)7cm. 90% dry necrotic cap ,10% lj borders. Edges are adherent to base of wound. Periwound is pink and dry. No odor or exudate noted. Small external haemorrhoid with small amt bleeding noted. R and L heels are both blanchable. No new skin concerns noted. Wound Tx are effective and continued as ordered . All wound prevention protocols continued as care-planned. Pt has an APM/DANIEL Mattress overlay and is being positioned as per tolerance and within protocols. s/p excisional debridement of stage 4 decubitus ulcer Tx.Plan: Cleanse Sacral wound with Saline. Apply TheraHoney. Apply Moisture Barrier Paste periwound. Cover with Optifoam Drsg. Change Daily and prn. Apply Moisture Barrier Paste to Mons Pubis, Perineum and buttocks with each Incontinence care. Apply Cavilon Skin Barrier to Both heels and Malleoli. Cover each site with Optifoam Drsg. Change every 7 days and prn. Reposition at least every 2hours or as tolerated. Off-load heels with Pillow. Reposition at least every 2hours or as tolerated. APM/DANIEL mattress overlay. Adrian Gar Jun 18, 2020 15:09
[2020-06-18 16:00] VITALS: BP 140/57
[2020-06-18 20:00] VITALS: BP 156/55
[2020-06-19] VITALS: BP 133/64
--- NOTE | 2020-06-19 00:55 | Cardiology Progress Note ---
Subjective DATE OF SERVICE: Jun 18, 2020 On T-collar UA still with TNTC white and red cells. Continued with abnormal renal function Still with hematuria; anticoagulation on hold. BP range elevated at times, but improving Glucose trend continues to be elevated. Sputum culture A.baumanni Monitor: Sinus with PAFIb and short runs of aberrancy. CT scan: Pulmonary edema and pleural effusion Wound with abscess or gas forming organisms Objective Last 24 Hour Vital Signs Date Time Temp Pulse Resp B/P (MAP) Pulse Ox O2 Delivery O2 Flow Rate FiO2 06/19/20 00:00 98.8 76 20 133/64 (87) 96 06/19/20 00:00 76 06/18/20 22:47 91 156/55 06/18/20 20:00 93 06/18/20 20:00 99.1 93 20 156/55 (88) 96 06/18/20 19:29 97 T-Piece 5.0 28 06/18/20 17:42 140/57 06/18/20 16:27 85 06/18/20 16:00 98.8 80 20 140/57 (84) 98 06/18/20 13:50 147/70 06/18/20 13:49 85 147/70 06/18/20 13:17 98 T-Piece 5.0 28 06/18/20 12:00 98.1 85 18 147/70 (95) 99 06/18/20 11:40 87 06/18/20 09:10 154/77 06/18/20 09:00 Trach Collar 6.0 06/18/20 08:20 98 T-Piece 5.0 28 06/18/20 08:00 98.1 82 20 154/77 (102) 100 06/18/20 07:51 82 06/18/20 06:51 87 160/80 06/18/20 04:00 98.1 87 20 160/80 (106) 98 06/18/20 04:00 87 06/18/20 01:06 97 T-Piece 5.0 28 ROS: no change from my assessment of 05/25/20 - remains unobtainable from patient HEENT: normal ENT inspection, Thin Trach secretions RHYTHM: NSR, PACs LUNGS: diminished breath sounds - left, bilateral rhonchi CARDIAC: normal rate, regular rhythm, normal S1 and S2, arrhythmia ABDOMEN: normal bowel sounds, non tender, soft, G-Tube intact EXTREMITIES: trace edema, other - sacral decub. noncommunicative Laboratory Tests Test 06/18/20 05:50 06/18/20 06:16 06/18/20 09:26 06/18/20 12:06 White Blood Count 24.5 K/UL (4.8-10.8) *H Red Blood Count 4.08 M/UL (4.20-5.40) L Hemoglobin 10.4 G/DL (12.0-16.0) L Hematocrit 31.8 % (37.0-47.0) L Mean Corpuscular Volume 78 FL (80-99) L Mean Corpuscular Hemoglobin 25.6 PG (27.0-31.0) L Mean Corpuscular Hemoglobin Concent 32.8 G/DL (32.0-36.0) Red Cell Distribution Width 15.7 % (11.6-14.8) H Platelet Count 370 K/UL (150-450) Mean Platelet Volume 7.1 FL (6.5-10.1) Neutrophils (%) (Auto) % (45.0-75.0) Lymphocytes (%) (Auto) % (20.0-45.0) Monocytes (%) (Auto) % (1.0-10.0) Eosinophils (%) (Auto) % (0.0-3.0) Basophils (%) (Auto) % (0.0-2.0) Differential Total Cells Counted 100 Neutrophils % (Manual) 87 % (45-75) H Lymphocytes % (Manual) 7 % (20-45) L Monocytes % (Manual) 2 % (1-10) Eosinophils % (Manual) 0 % (0-3) Basophils % (Manual) 0 % (0-2) Metamyelocytes % 1 % (0-0) H Myelocytes % 1 % (0-0) H Band Neutrophils 2 % (0-8) Platelet Estimate Adequate Platelet Morphology Normal Anisocytosis 1+ Microcytosis 2+ Urine Color Brown Urine Appearance Cloudy Urine pH 5 (4.5-8.0) Urine Specific [place] 1.015 (1.005-1.035) Urine Protein 3+ (NEGATIVE) H Urine Glucose (UA) Negative (NEGATIVE) Urine Ketones Negative (NEGATIVE) Urine Blood 5+ (NEGATIVE) H Urine Nitrite Negative (NEGATIVE) Urine Bilirubin Negative (NEGATIVE) Urine Urobilinogen Normal MG/DL (0.0-1.0) Urine Leukocyte Esterase 3+ (NEGATIVE) H Urine RBC Tntc /HPF (0 - 2) H Urine WBC Tntc /HPF (0 - 2) H Urine Squamous Epithelial Cells Occasional /LPF Urine Bacteria Few /HPF (NONE) Sodium Level 141 MMOL/L (136-145) Potassium Level 4.5 MMOL/L (3.5-5.1) Chloride Level 102 MMOL/L (98-107) Carbon Dioxide Level 23 MMOL/L (21-32) Anion Gap 16 mmol/L (5-15) H Blood Urea Nitrogen 99 mg/dL (7-18) H Creatinine 2.2 MG/DL (0.55-1.30) H Estimat Glomerular Filtration Rate 21.9 mL/min (>60) Glucose Level 196 MG/DL (74-106) H Calcium Level 8.2 MG/DL (8.5-10.1) L Magnesium Level 1.7 MG/DL (1.8-2.4) L POC Whole Blood Glucose Pending Pending Pending Test 06/18/20 17:39 06/18/20 20:28 06/18/20 23:23 POC Whole Blood Glucose Pending Pending Pending Microbiology Date/Time Source Procedure Growth Status 06/16/20 13:00 Indwelling Cath Urine Culture - Preliminary Yeast Species Resulted Assessment/Plan Assessment/Plan [facility] acquired UTI with persistent hematuria Left pleural effusion Acute myocardial ischemia with possible NSTE myocardial infarction Sepsis Respiratory failure Hypertension/HHD with elev BP Parox AFib 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 No need for statin Titrate insulin rx - advancing levemir. Wound care Monitor hemoglobin. Consider renal consult John Heard MD Jun 19, 2020 00:55
[2020-06-19 04:00] VITALS: BP 153/76
[2020-06-19] MEDS: Metoprolol Tartrate 50mg tab GT SCH ×3 (06:47→21:55)
[2020-06-19] MEDS: NovoLOG Insulin Flexpen SUBQ SCH ×3 (06:53→17:35)
[2020-06-19 08:00] VITALS: BP 157/79
[2020-06-19] MEDS: Cefepime 1gm in D5W 55ml IVPB SCH (09:17)
[2020-06-19] MEDS: Ascorbic Acid 500mg tab GT SCH (09:18)
[2020-06-19] MEDS: Pantoprazole Inj IVP SCH (09:18)
[2020-06-19] MEDS: Levemir Flexpen SUBQ SCH ×2 (09:38→21:53)
[2020-06-19 12:00] VITALS: BP 133/70
--- NOTE | 2020-06-19 13:23 | Surgery Progress Note ---
Surgery Progress Note Subjective Procedure Performed Excisional debridement of sacral decubitus ulcer 10 cm x 10 cm x 4 cm deep down to bone Additional Comments leukocytosis on abx exam stable Objective Last 24 Hour Vital Signs Date Time Temp Pulse Resp B/P (MAP) Pulse Ox O2 Delivery O2 Flow Rate FiO2 06/19/20 12:00 97.9 87 20 133/70 (91) 97 06/19/20 11:28 88 06/19/20 09:18 157/79 06/19/20 09:00 Trach Collar 6.0 06/19/20 08:00 97.7 77 18 157/79 (105) 98 06/19/20 07:52 98 T-Piece 6.0 28 06/19/20 07:47 76 06/19/20 06:47 87 153/76 06/19/20 04:00 87 06/19/20 04:00 98.1 77 20 153/76 (101) 98 06/19/20 01:44 97 T-Piece 5.0 28 06/19/20 00:00 98.8 76 20 133/64 (87) 96 06/19/20 00:00 76 06/18/20 22:47 91 156/55 06/18/20 21:00 Trach Collar 6.0 06/18/20 20:00 93 06/18/20 20:00 99.1 93 20 156/55 (88) 96 06/18/20 19:29 97 T-Piece 5.0 28 06/18/20 17:42 140/57 06/18/20 16:27 85 06/18/20 16:00 98.8 80 20 140/57 (84) 98 06/18/20 13:50 147/70 06/18/20 13:49 85 147/70 I&O Intake and Output 06/18/20 06/19/20 19:00 07:00 Output Total 800 ml 900 ml Balance -800 ml -900 ml Output Urine Total 800 ml 900 ml # Bowel Movements 1 1 Dressing: saturated Wound: clean Cardiovascular: RSR Respiratory: decreased breath sounds Abdomen: soft, non-tender, present bowel sounds Extremities: no tenderness, no cyanosis Laboratory Tests Test 06/18/20 17:39 06/18/20 20:28 06/18/20 23:23 06/19/20 06:49 POC Whole Blood Glucose Pending Pending Pending 156 MG/DL (74-106) H Test 06/19/20 09:36 POC Whole Blood Glucose Pending Assessment Post-op Diagnosis Stage IV sacral decubitus ulcer Plan Problems: (1) Anemia (2) Sepsis Assessment & Plan: 74-year-old female with medical comorbidities present with leukocytosis anemia abnormal labs hypoalbuminemia failure to thrive malnutrition worsening decubitus ulcer admitted further care and management was prior on vancomycin now on IV antibiotics admitted and under monitoring. Full evaluation does not at the bedside and evaluation performed. Trach stable PEG tube stable skin deteriorating per her turgor worsening decubitus ulcer malnutrition continue tube feeds as tolerated continue antibiotics wounds unlikely etiology of patient's sepsis we will monitor and follow with recommendations trend labs thank you for letting participate patient's care improving 06/13 acute severe leukocytosis abx changed wound improved since debridement will monitor DAILY ESTIMATED NEEDS: Needs based on Wound, DM/ 57kg abw 25-30 kcals/kg 4993-2869 total kcals 1.25-1.8 g protein/kg 71-103 g total protein 20-25 mL/kg 0789-2435 total fluid mLs NUTRITION DIAGNOSIS: * Increased kcal/prot needs R/T wound healing as evidenced by pt admiteed w/ unstageable sacral wound, refer to full wound care eval. * Swallowing difficulty R/T dysphagia, respiratory status as evidenced by pt on T-collar, PEG dep. CURRENT TF:Glucerna 1.2 @ 50ml/hr x 24 hrs ENTERAL NUTRITION RECOMMENDATIONS: Glucerna 1.2 @ 50ml/hr x 24 hrs to provide 1200ml, 1440kcal, 72g, 966ml free water * Maintain current TF * HOB over 30 degrees/ water flush per MD ADDITIONAL RECOMMENDATIONS: * Calibrated bedscale wt -w/ added p200 mattress + pump * Wound healing: TF @ goal will provide 100% RDI Continue Vit C 250mg QD + add Endy BID via PEG * Monitor lytes closely w/ Lasix, replete as needed * Monitor BGs, rec increasing Levemir (POC glu 373 310) . (3) Elevated troponin (4) Pneumonia (5) Encounter for generalized patient complaints (6) Decubitus skin ulcer Assessment & Plan: Patient presented on admission with an Unstageable Sacral Pressure injury(L)9.8cm x (W)6.7cm. Base of wound is 80% necrotic ,20% mixed slough ,beefy red. Small amt serous exudate. Mild odor noted. Borders are macerated with surrounding maroon and indurated borders. MASD noted to Mons-pubis outer aspects of R and L buttocks. Perineum and bilat ischial tuberosities. Affected areas mentioned are erythematous, macerated with scattered satellite lesions. Non-Blanchable erythema without induration or fluctuance R and L Heels. Skin assessed under tracheal collar and no evidence of skin breakdown noted. Assessed pt and necrotic base of Sacral wound crosshatched by . Unstageable Sacral Pressure Injury (L)9.8cm x (W)7cm. 90% dry necrotic cap ,10% lj borders. Edges are adherent to base of wound. Periwound is pink and dry. No odor or exudate noted. Small external haemorrhoid with small amt bleeding noted. R and L heels are both blanchable. No new skin concerns noted. Wound Tx are effective and continued as ordered . All wound prevention protocols continued as care-planned. Pt has an APM/DANIEL Mattress overlay and is being positioned as per tolerance and within protocols. s/p excisional debridement of stage 4 decubitus ulcer Tx.Plan: Cleanse Sacral wound with Saline. Apply TheraHoney. Apply Moisture Barrier Paste periwound. Cover with Optifoam Drsg. Change Daily and prn. Apply Moisture Barrier Paste to Mons Pubis, Perineum and buttocks with each Incontinence care. Apply Cavilon Skin Barrier to Both heels and Malleoli. Cover each site with Optifoam Drsg. Change every 7 days and prn. Reposition at least every 2hours or as tolerated. Off-load heels with Pillow. Reposition at least every 2hours or as tolerated. APM/DANIEL mattress overlay. Adrian Gar Jun 19, 2020 13:23
[2020-06-19 13:51] LABS: HEMATOCRIT 30.8 % (37.0-47.0); HEMOGLOBIN 10.1 G/DL (12.0-16.0); MEAN CORPUSCULAR VOLUME 78 FL (80-99); PLATELET COUNT 351 K/UL (150-450); RED BLOOD COUNT 3.96 M/UL (4.20-5.40); RED CELL DISTRIBUTION WIDTH 15.9 % (11.6-14.8)
[2020-06-19 13:52] LABS: WHITE BLOOD COUNT 22.6 K/UL (4.8-10.8)
--- NOTE | 2020-06-19 15:51 | Infectious Diseases Prog Note ---
Assessment/Plan Assessment/Plan A: 1. sepsis. 2. Acinetobacter pneumonia treated 3. Leukocytosis improving 4. Diabetes. 5. Hypertension. 6. CVA. 7. Dementia. 8. COVID-19 test was negative. 9. 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 Hematuria PLAN: 1. Continue Cefepime & Zyvox 2. Wound care Subjective ROS Limited/Unobtainable: Yes Allergies: Coded Allergies: No Known Allergies (Unverified , 05/15/20) Objective Last 24 Hour Vital Signs Date Time Temp Pulse Resp B/P (MAP) Pulse Ox O2 Delivery O2 Flow Rate FiO2 06/19/20 13:41 133/70 06/19/20 13:41 87 133/70 06/19/20 13:40 97 T-Piece 6.0 28 06/19/20 12:00 97.9 87 20 133/70 (91) 97 06/19/20 11:28 88 06/19/20 09:18 157/79 06/19/20 09:00 Trach Collar 6.0 06/19/20 08:00 97.7 77 18 157/79 (105) 98 06/19/20 07:52 98 T-Piece 6.0 28 06/19/20 07:47 76 06/19/20 06:47 87 153/76 06/19/20 04:00 87 06/19/20 04:00 98.1 77 20 153/76 (101) 98 06/19/20 01:44 97 T-Piece 5.0 28 06/19/20 00:00 98.8 76 20 133/64 (87) 96 06/19/20 00:00 76 06/18/20 22:47 91 156/55 06/18/20 21:00 Trach Collar 6.0 06/18/20 20:00 93 06/18/20 20:00 99.1 93 20 156/55 (88) 96 06/18/20 19:29 97 T-Piece 5.0 28 06/18/20 17:42 140/57 06/18/20 16:27 85 06/18/20 16:00 98.8 80 20 140/57 (84) 98 Height (Feet): 5 Height (Inches): 3.00 Weight (Pounds): 157 HEENT: status post trach Respiratory/Chest: lungs clear, other - T bar Cardiovascular: normal rate, other - GT feeding Abdomen: soft, non tender Extremities: no edema Neurologic/Psychiatric: aphasia, other - opens eyes Microbiology Date/Time Source Procedure Growth Status 06/18/20 05:50 Urine,Clean Catch Urine Culture - Preliminary NO GROWTH Resulted Laboratory Tests Test 06/18/20 17:39 06/18/20 20:28 06/18/20 23:23 06/19/20 06:49 POC Whole Blood Glucose Pending Pending Pending 156 MG/DL (74-106) H Test 06/19/20 09:36 06/19/20 13:35 POC Whole Blood Glucose Pending White Blood Count 22.6 K/UL (4.8-10.8) *H Red Blood Count 3.96 M/UL (4.20-5.40) L Hemoglobin 10.1 G/DL (12.0-16.0) L Hematocrit 30.8 % (37.0-47.0) L Mean Corpuscular Volume 78 FL (80-99) L Mean Corpuscular Hemoglobin 25.5 PG (27.0-31.0) L Mean Corpuscular Hemoglobin Concent 32.7 G/DL (32.0-36.0) Red Cell Distribution Width 15.9 % (11.6-14.8) H Platelet Count 351 K/UL (150-450) Mean Platelet Volume 6.8 FL (6.5-10.1) Neutrophils (%) (Auto) % (45.0-75.0) Lymphocytes (%) (Auto) % (20.0-45.0) Monocytes (%) (Auto) % (1.0-10.0) Eosinophils (%) (Auto) % (0.0-3.0) Basophils (%) (Auto) % (0.0-2.0) Differential Total Cells Counted 100 Neutrophils % (Manual) 90 % (45-75) H Lymphocytes % (Manual) 7 % (20-45) L Monocytes % (Manual) 2 % (1-10) Eosinophils % (Manual) 0 % (0-3) Basophils % (Manual) 1 % (0-2) Band Neutrophils 0 % (0-8) Platelet Estimate Adequate Platelet Morphology Normal Hypochromasia 1+ Anisocytosis 1+ Microcytosis 1+ Current Medications Medications (Trade) Dose Ordered Sig/Cayden Route PRN Reason Start Time Stop Time Status Last Admin Dose Admin Acetaminophen (Tylenol) 650 mg Q4H PRN GT Pain 05/26/20 07:45 06/25/20 07:44 06/16/20 22:01 Ascorbic Acid (Vitamin C) 250 mg DAILY GT 05/28/20 09:00 06/27/20 08:59 06/19/20 09:18 Cefepime HCl 1 gm/ Dextrose 55 ml @ 110 mls/hr Q24H IVPB 06/15/20 09:00 06/22/20 08:59 06/19/20 09:17 Clonidine HCl (Catapres Tab) 0.1 mg Q4H PRN ORAL for sbp>150 06/03/20 09:00 09/01/20 08:59 06/11/20 05:49 Dextrose (Dextrose 50%) 25 ml Q30M PRN IV Hypoglycemia 05/26/20 07:30 08/24/20 07:29 Dextrose (Dextrose 50%) 50 ml Q30M PRN IV Hypoglycemia 05/26/20 07:30 08/24/20 07:29 Insulin Aspart (NovoLOG) Q6HR SUBQ 05/26/20 12:00 08/24/20 11:59 06/19/20 12:15 Insulin Detemir (Levemir) 24 units EVERY 12 HOURS SUBQ 06/16/20 09:00 09/14/20 08:59 06/19/20 09:38 Isosorbide Dinitrate (Isordil) 20 mg THREE TIMES A DAY GT 06/02/20 13:00 07/02/20 12:59 06/19/20 13:41 Metoprolol Tartrate (Lopressor) 50 mg EVERY 8 HOURS GT 05/28/20 22:00 08/26/20 21:59 06/19/20 13:41 Pantoprazole (Protonix) 40 mg DAILY IVP 05/26/20 09:00 06/25/20 08:59 06/19/20 09:18 Colby Rock MD Jun 19, 2020 15:51
[2020-06-19 16:00] VITALS: BP 152/77
[2020-06-19 20:00] VITALS: BP 138/50
--- NOTE | 2020-06-19 21:36 | Pulmonology Progress Note ---
Subjective ROS Limited/Unobtainable: Yes Constitutional: Denies: fever Allergies: Coded Allergies: No Known Allergies (Unverified , 05/15/20) Objective Last 24 Hour Vital Signs Date Time Temp Pulse Resp B/P (MAP) Pulse Ox O2 Delivery O2 Flow Rate FiO2 06/19/20 19:43 97 T-Piece 6.0 28 06/19/20 17:34 152/77 06/19/20 16:00 97.9 83 18 152/77 (102) 99 06/19/20 15:41 83 06/19/20 13:41 133/70 06/19/20 13:41 87 133/70 06/19/20 13:40 97 T-Piece 6.0 28 06/19/20 12:00 97.9 87 20 133/70 (91) 97 06/19/20 11:28 88 06/19/20 09:18 157/79 06/19/20 09:00 Trach Collar 6.0 06/19/20 08:00 97.7 77 18 157/79 (105) 98 06/19/20 07:52 98 T-Piece 6.0 28 06/19/20 07:47 76 06/19/20 06:47 87 153/76 06/19/20 04:00 87 06/19/20 04:00 98.1 77 20 153/76 (101) 98 06/19/20 01:44 97 T-Piece 5.0 28 06/19/20 00:00 98.8 76 20 133/64 (87) 96 06/19/20 00:00 76 06/18/20 22:47 91 156/55 Intake and Output 06/18/20 06/19/20 19:00 07:00 Output Total 800 ml 900 ml Balance -800 ml -900 ml Output Urine Total 800 ml 900 ml # Bowel Movements 1 1 Microbiology Date/Time Source Procedure Growth Status 06/18/20 05:50 Urine,Clean Catch Urine Culture - Preliminary NO GROWTH Resulted Laboratory Tests 06/18/20 23:23: POC Whole Blood Glucose [Pending] 06/19/20 06:49: POC Whole Blood Glucose 156H 06/19/20 09:36: POC Whole Blood Glucose [Pending] 06/19/20 12:10: POC Whole Blood Glucose 184H 06/19/20 13:35: White Blood Count 22.6*H, Red Blood Count 3.96L, Hemoglobin 10.1L, Hematocrit 30.8L, Mean Corpuscular Volume 78L, Mean Corpuscular Hemoglobin 25.5L, Mean Corpuscular Hemoglobin Concent 32.7, Red Cell Distribution Width 15.9H, Platelet Count 351, Mean Platelet Volume 6.8, Neutrophils (%) (Auto) , Lymphocytes (%) (Auto) , Monocytes (%) (Auto) , Eosinophils (%) (Auto) , Basophils (%) (Auto) , Differential Total Cells Counted 100, Neutrophils % (Manual) 90H, Lymphocytes % (Manual) 7L, Monocytes % (Manual) 2, Eosinophils % (Manual) 0, Basophils % (Manual) 1, Band Neutrophils 0, Platelet Estimate Adequate, Platelet Morphology Normal, Hypochromasia 1+, Anisocytosis 1+, Microcytosis 1+ 06/19/20 17:25: POC Whole Blood Glucose 181H Current Medications Medications (Trade) Dose Ordered Sig/Cayden Route PRN Reason Start Time Stop Time Status Last Admin Dose Admin Acetaminophen (Tylenol) 650 mg Q4H PRN GT Pain 05/26/20 07:45 06/25/20 07:44 06/16/20 22:01 Ascorbic Acid (Vitamin C) 250 mg DAILY GT 05/28/20 09:00 06/27/20 08:59 06/19/20 09:18 Cefepime HCl 1 gm/ Dextrose 55 ml @ 110 mls/hr Q24H IVPB 06/15/20 09:00 06/22/20 08:59 06/19/20 09:17 Clonidine HCl (Catapres Tab) 0.1 mg Q4H PRN ORAL for sbp>150 06/03/20 09:00 09/01/20 08:59 06/11/20 05:49 Dextrose (Dextrose 50%) 25 ml Q30M PRN IV Hypoglycemia 05/26/20 07:30 08/24/20 07:29 Dextrose (Dextrose 50%) 50 ml Q30M PRN IV Hypoglycemia 05/26/20 07:30 08/24/20 07:29 Insulin Aspart (NovoLOG) Q6HR SUBQ 05/26/20 12:00 08/24/20 11:59 06/19/20 17:35 Insulin Detemir (Levemir) 24 units EVERY 12 HOURS SUBQ 06/16/20 09:00 09/14/20 08:59 06/19/20 09:38 Isosorbide Dinitrate (Isordil) 20 mg THREE TIMES A DAY GT 06/02/20 13:00 07/02/20 12:59 06/19/20 17:34 Linezolid (Zyvox) 600 mg EVERY 12 HOURS GT 06/19/20 21:00 06/24/20 20:59 Metoprolol Tartrate (Lopressor) 50 mg EVERY 8 HOURS GT 05/28/20 22:00 08/26/20 21:59 06/19/20 13:41 Pantoprazole (Protonix) 40 mg DAILY IVP 05/26/20 09:00 06/25/20 08:59 06/19/20 09:18 Assessment/Plan Assessment/Plan Pulmonary Progress Note Subjective ROS Limited/Unobtainable: Yes Allergies: Coded Allergies: No Known Allergies (Unverified , 05/15/20) Subjective care noted MDRO - Acinetobacter pneumonia wbc noted stable overnight Objective Vital Signs noted Objective WDWN NAD trach - t piece reduced breath sounds bilaterally [id number] without MRG NABS nontender GT no CCE withdrawn Laboratory Tests noted Assessment/Plan Assessment/Plan IMPRESSION leukocytosis atrial fibrillation chronic encephalopathy trach respiratory failure elevated troponin anemia bacteremia- staph fevers better hypertension osteo hematuria diabetes PLAN CT with osteo ESR elevated AB per ID wbc not improving respiratory care snf meds noted suction monitor cultures eliquis resume once confirmed that hematuria resolved card follow up IV antibiotics and care ID follow up and recommendations - not stable for dc impression, plan, and exam edited and reviewed in detail care discussed with John Wilson MD Jun 19, 2020 21:36
[2020-06-20] VITALS (7 sets, daily range): BP systolic 121–164; BP diastolic 52–78
--- NOTE | 2020-06-20 01:43 | Cardiology Progress Note ---
Subjective DATE OF SERVICE: Jun 19, 2020 On T-collar UA still with TNTC white and red cells. Continued with abnormal renal function Still with hematuria; anticoagulation on hold. BP range elevated at times, but improving Glucose trend continues to be elevated. Sputum culture A.baumanni Monitor: Sinus with PAFIb and short runs of aberrancy. CT scan: Pulmonary edema and pleural effusion Wound with abscess or gas forming organisms Objective Last 24 Hour Vital Signs Date Time Temp Pulse Resp B/P (MAP) Pulse Ox O2 Delivery O2 Flow Rate FiO2 06/20/20 01:23 97 T-Piece 6.0 28 06/20/20 00:00 82 06/20/20 00:00 99.0 82 18 127/52 (77) 96 06/19/20 21:55 88 155/80 06/19/20 21:00 Trach Collar 6.0 06/19/20 20:00 98.8 84 18 138/50 (79) 97 06/19/20 20:00 89 06/19/20 19:43 97 T-Piece 6.0 28 06/19/20 17:34 152/77 06/19/20 16:00 97.9 83 18 152/77 (102) 99 06/19/20 15:41 83 06/19/20 13:41 133/70 06/19/20 13:41 87 133/70 06/19/20 13:40 97 T-Piece 6.0 28 06/19/20 12:00 97.9 87 20 133/70 (91) 97 06/19/20 11:28 88 06/19/20 09:18 157/79 06/19/20 09:00 Trach Collar 6.0 06/19/20 08:00 97.7 77 18 157/79 (105) 98 06/19/20 07:52 98 T-Piece 6.0 28 06/19/20 07:47 76 06/19/20 06:47 87 153/76 06/19/20 04:00 87 06/19/20 04:00 98.1 77 20 153/76 (101) 98 06/19/20 01:44 97 T-Piece 5.0 28 ROS: no change from my assessment of 05/25/20 - remains unobtainable from patient HEENT: normal ENT inspection, Thin Trach secretions RHYTHM: NSR, PACs LUNGS: diminished breath sounds - left, bilateral rhonchi CARDIAC: normal rate, regular rhythm, normal S1 and S2, arrhythmia ABDOMEN: normal bowel sounds, non tender, soft, G-Tube intact EXTREMITIES: trace edema, other - sacral decub. noncommunicative Laboratory Tests Test 06/19/20 06:49 06/19/20 09:36 06/19/20 12:10 06/19/20 13:35 POC Whole Blood Glucose 156 MG/DL (74-106) H Pending 184 MG/DL (74-106) H White Blood Count 22.6 K/UL (4.8-10.8) *H Red Blood Count 3.96 M/UL (4.20-5.40) L Hemoglobin 10.1 G/DL (12.0-16.0) L Hematocrit 30.8 % (37.0-47.0) L Mean Corpuscular Volume 78 FL (80-99) L Mean Corpuscular Hemoglobin 25.5 PG (27.0-31.0) L Mean Corpuscular Hemoglobin Concent 32.7 G/DL (32.0-36.0) Red Cell Distribution Width 15.9 % (11.6-14.8) H Platelet Count 351 K/UL (150-450) Mean Platelet Volume 6.8 FL (6.5-10.1) Neutrophils (%) (Auto) % (45.0-75.0) Lymphocytes (%) (Auto) % (20.0-45.0) Monocytes (%) (Auto) % (1.0-10.0) Eosinophils (%) (Auto) % (0.0-3.0) Basophils (%) (Auto) % (0.0-2.0) Differential Total Cells Counted 100 Neutrophils % (Manual) 90 % (45-75) H Lymphocytes % (Manual) 7 % (20-45) L Monocytes % (Manual) 2 % (1-10) Eosinophils % (Manual) 0 % (0-3) Basophils % (Manual) 1 % (0-2) Band Neutrophils 0 % (0-8) Platelet Estimate Adequate Platelet Morphology Normal Hypochromasia 1+ Anisocytosis 1+ Microcytosis 1+ Test 06/19/20 17:25 06/19/20 21:50 POC Whole Blood Glucose 181 MG/DL (74-106) H Pending Microbiology Date/Time Source Procedure Growth Status 06/18/20 05:50 Urine,Clean Catch Urine Culture - Preliminary NO GROWTH Resulted Assessment/Plan Assessment/Plan [facility] acquired UTI with persistent hematuria Left pleural effusion Acute myocardial ischemia with possible NSTE myocardial infarction Sepsis Respiratory failure Hypertension/HHD with elev BP Parox AFib Conduction system disease with bifasc block Chr diastolic CHF Low lipid parameters NSVT IRDM with hyperglycemia still Hypomagnesemia Contaminant in positive blood cultures Osteomyelitis Acute renal faillure Hyperkalemia Hematuria Resp Rx Antibiotics per ID traffic monitor specialist Continue off diuretics and ACEi; add IVF IVF Anticoagulation on hold due to bleeding - consider resumption if UA clears Titrate CV regimen based on clinical parameters - continue current antianginal regimen, including beta pietro. No need for statin Titrate insulin rx - advancing levemir. Wound care Monitor hemoglobin. John Heard MD Jun 20, 2020 01:43
[2020-06-20] MEDS: NovoLOG Insulin Flexpen SUBQ SCH ×4 (05:48→17:23)
[2020-06-20] MEDS: Metoprolol Tartrate 50mg tab GT SCH ×3 (05:48→21:16)
--- NOTE | 2020-06-20 08:00 | Pulmonology Progress Note ---
Subjective ROS Limited/Unobtainable: Yes Constitutional: Denies: fever Allergies: Coded Allergies: No Known Allergies (Unverified , 05/15/20) Subjective care noted elevated ESR and osteo elevated wbc Objective Last 24 Hour Vital Signs Date Time Temp Pulse Resp B/P (MAP) Pulse Ox O2 Delivery O2 Flow Rate FiO2 06/20/20 05:48 88 134/80 06/20/20 04:00 88 06/20/20 04:00 99.5 88 18 148/74 (98) 96 06/20/20 01:23 97 T-Piece 6.0 28 06/20/20 00:00 82 06/20/20 00:00 99.0 82 18 127/52 (77) 96 06/19/20 21:55 88 155/80 06/19/20 21:00 Trach Collar 6.0 06/19/20 20:00 98.8 84 18 138/50 (79) 97 06/19/20 20:00 89 06/19/20 19:43 97 T-Piece 6.0 28 06/19/20 17:34 152/77 06/19/20 16:00 97.9 83 18 152/77 (102) 99 06/19/20 15:41 83 06/19/20 13:41 133/70 06/19/20 13:41 87 133/70 06/19/20 13:40 97 T-Piece 6.0 28 06/19/20 12:00 97.9 87 20 133/70 (91) 97 06/19/20 11:28 88 06/19/20 09:18 157/79 06/19/20 09:00 Trach Collar 6.0 06/19/20 08:00 97.7 77 18 157/79 (105) 98 Intake and Output 06/19/20 06/20/20 19:00 07:00 Output Total 800 ml 1100 ml Balance -800 ml -1100 ml Output Urine Total 800 ml 1100 ml # Bowel Movements 1 1 Objective WDWN NAD trach reduced breath sounds bilaterally without rhonchi [id number] without MRG NABS nontender GT no CCE withdrawn Microbiology Date/Time Source Procedure Growth Status 06/18/20 05:50 Urine,Clean Catch Urine Culture - Preliminary Yeast Species Resulted Laboratory Tests 06/19/20 09:36: POC Whole Blood Glucose [Pending] 06/19/20 12:10: POC Whole Blood Glucose 184H 06/19/20 13:35: White Blood Count 22.6*H, Red Blood Count 3.96L, Hemoglobin 10.1L, Hematocrit 30.8L, Mean Corpuscular Volume 78L, Mean Corpuscular Hemoglobin 25.5L, Mean Corpuscular Hemoglobin Concent 32.7, Red Cell Distribution Width 15.9H, Platelet Count 351, Mean Platelet Volume 6.8, Neutrophils (%) (Auto) , Lymphocytes (%) (Auto) , Monocytes (%) (Auto) , Eosinophils (%) (Auto) , Basophils (%) (Auto) , Differential Total Cells Counted 100, Neutrophils % (Manual) 90H, Lymphocytes % (Manual) 7L, Monocytes % (Manual) 2, Eosinophils % (Manual) 0, Basophils % (Manual) 1, Band Neutrophils 0, Platelet Estimate Adequate, Platelet Morphology Normal, Hypochromasia 1+, Anisocytosis 1+, Microcytosis 1+ 06/19/20 17:25: POC Whole Blood Glucose 181H 06/19/20 21:50: POC Whole Blood Glucose [Pending] 06/20/20 05:40: POC Whole Blood Glucose 129H Current Medications Medications (Trade) Dose Ordered Sig/Cayden Route PRN Reason Start Time Stop Time Status Last Admin Dose Admin Acetaminophen (Tylenol) 650 mg Q4H PRN GT Pain 05/26/20 07:45 06/25/20 07:44 06/16/20 22:01 Ascorbic Acid (Vitamin C) 250 mg DAILY GT 05/28/20 09:00 06/27/20 08:59 06/19/20 09:18 Cefepime HCl 1 gm/ Dextrose 55 ml @ 110 mls/hr Q24H IVPB 06/15/20 09:00 06/22/20 08:59 06/19/20 09:17 Clonidine HCl (Catapres Tab) 0.1 mg Q4H PRN ORAL for sbp>150 06/03/20 09:00 09/01/20 08:59 06/11/20 05:49 Dextrose (Dextrose 50%) 25 ml Q30M PRN IV Hypoglycemia 05/26/20 07:30 08/24/20 07:29 Dextrose (Dextrose 50%) 50 ml Q30M PRN IV Hypoglycemia 05/26/20 07:30 08/24/20 07:29 Insulin Aspart (NovoLOG) Q6HR SUBQ 05/26/20 12:00 08/24/20 11:59 06/19/20 17:35 Insulin Detemir (Levemir) 24 units EVERY 12 HOURS SUBQ 06/16/20 09:00 09/14/20 08:59 06/19/20 21:53 Isosorbide Dinitrate (Isordil) 20 mg THREE TIMES A DAY GT 06/02/20 13:00 07/02/20 12:59 06/19/20 17:34 Linezolid (Zyvox) 600 mg EVERY 12 HOURS GT 06/19/20 21:00 06/24/20 20:59 06/19/20 21:54 Metoprolol Tartrate (Lopressor) 50 mg EVERY 8 HOURS GT 05/28/20 22:00 08/26/20 21:59 06/20/20 05:48 Pantoprazole (Protonix) 40 mg DAILY IVP 05/26/20 09:00 06/25/20 08:59 06/19/20 09:18 Sodium Chloride 1,000 ml @ 100 mls/hr Q10H IV 06/20/20 01:45 07/20/20 01:44 06/20/20 01:45 Assessment/Plan Assessment/Plan IMPRESSION leukocytosis, worse Afib, chronic encephalopathy trach respiratory failure elevated troponin anemia bacteremia- staph fevers better hypertension osteo hematuria diabetes PLAN CT with osteo ESR elevated wbc not improving respiratory care snf meds noted suction monitor cultures eliquis resume card follow up IV antibiotics and care ID follow up and recommendations - not stable for dc impression, plan, and exam edited and reviewed in detail care discussed with Fernie Ledezma MD Jun 20, 2020 08:00
--- NOTE | 2020-06-20 08:41 | Surgery Progress Note ---
Surgery Progress Note Subjective Procedure Performed Excisional debridement of sacral decubitus ulcer 10 cm x 10 cm x 4 cm deep down to bone Additional Comments persistent leukocytosis pending labs dressings going well osteo tx abx Objective Last 24 Hour Vital Signs Date Time Temp Pulse Resp B/P (MAP) Pulse Ox O2 Delivery O2 Flow Rate FiO2 06/20/20 08:00 98.0 82 20 157/75 (102) 98 06/20/20 05:48 88 134/80 06/20/20 04:00 88 06/20/20 04:00 99.5 88 18 148/74 (98) 96 06/20/20 01:23 97 T-Piece 6.0 28 06/20/20 00:00 82 06/20/20 00:00 99.0 82 18 127/52 (77) 96 06/19/20 21:55 88 155/80 06/19/20 21:00 Trach Collar 6.0 06/19/20 20:00 98.8 84 18 138/50 (79) 97 06/19/20 20:00 89 06/19/20 19:43 97 T-Piece 6.0 28 06/19/20 17:34 152/77 06/19/20 16:00 97.9 83 18 152/77 (102) 99 06/19/20 15:41 83 06/19/20 13:41 133/70 06/19/20 13:41 87 133/70 06/19/20 13:40 97 T-Piece 6.0 28 06/19/20 12:00 97.9 87 20 133/70 (91) 97 06/19/20 11:28 88 06/19/20 09:18 157/79 06/19/20 09:00 Trach Collar 6.0 I&O Intake and Output 06/19/20 06/20/20 19:00 07:00 Output Total 800 ml 1100 ml Balance -800 ml -1100 ml Output Urine Total 800 ml 1100 ml # Bowel Movements 1 1 Dressing: other Wound: other Cardiovascular: RSR Respiratory: decreased breath sounds Abdomen: soft, non-tender, present bowel sounds Extremities: no edema, no tenderness, no cyanosis Laboratory Tests Test 06/19/20 09:36 06/19/20 12:10 06/19/20 13:35 06/19/20 17:25 POC Whole Blood Glucose Pending 184 MG/DL (74-106) H 181 MG/DL (74-106) H White Blood Count 22.6 K/UL (4.8-10.8) *H Red Blood Count 3.96 M/UL (4.20-5.40) L Hemoglobin 10.1 G/DL (12.0-16.0) L Hematocrit 30.8 % (37.0-47.0) L Mean Corpuscular Volume 78 FL (80-99) L Mean Corpuscular Hemoglobin 25.5 PG (27.0-31.0) L Mean Corpuscular Hemoglobin Concent 32.7 G/DL (32.0-36.0) Red Cell Distribution Width 15.9 % (11.6-14.8) H Platelet Count 351 K/UL (150-450) Mean Platelet Volume 6.8 FL (6.5-10.1) Neutrophils (%) (Auto) % (45.0-75.0) Lymphocytes (%) (Auto) % (20.0-45.0) Monocytes (%) (Auto) % (1.0-10.0) Eosinophils (%) (Auto) % (0.0-3.0) Basophils (%) (Auto) % (0.0-2.0) Differential Total Cells Counted 100 Neutrophils % (Manual) 90 % (45-75) H Lymphocytes % (Manual) 7 % (20-45) L Monocytes % (Manual) 2 % (1-10) Eosinophils % (Manual) 0 % (0-3) Basophils % (Manual) 1 % (0-2) Band Neutrophils 0 % (0-8) Platelet Estimate Adequate Platelet Morphology Normal Hypochromasia 1+ Anisocytosis 1+ Microcytosis 1+ Test 06/19/20 21:50 06/20/20 05:40 POC Whole Blood Glucose Pending 129 MG/DL (74-106) H Assessment Post-op Diagnosis Stage IV sacral decubitus ulcer Plan Problems: (1) Anemia (2) Sepsis Assessment & Plan: 74-year-old female with medical comorbidities present with leukocytosis anemia abnormal labs hypoalbuminemia failure to thrive malnutrition worsening decubitus ulcer admitted further care and management was prior on vancomycin now on IV antibiotics admitted and under monitoring. Full evaluation does not at the bedside and evaluation performed. Trach stable PEG tube stable skin deteriorating per her turgor worsening decubitus ulcer malnutrition continue tube feeds as tolerated continue antibiotics wounds unlikely etiology of patient's sepsis we will monitor and follow with recommendations trend labs thank you for letting participate patient's care improving 06/13 acute severe leukocytosis abx changed wound improved since debridement will monitor cont abx cont dressings trend labs DAILY ESTIMATED NEEDS: Needs based on Wound, DM/ 57kg abw 25-30 kcals/kg 5970-0520 total kcals 1.25-1.8 g protein/kg 71-103 g total protein 20-25 mL/kg 9283-5662 total fluid mLs NUTRITION DIAGNOSIS: * Increased kcal/prot needs R/T wound healing as evidenced by pt admiteed w/ unstageable sacral wound, refer to full wound care eval. * Swallowing difficulty R/T dysphagia, respiratory status as evidenced by pt on T-collar, PEG dep. CURRENT TF:Glucerna 1.2 @ 50ml/hr x 24 hrs ENTERAL NUTRITION RECOMMENDATIONS: Glucerna 1.2 @ 50ml/hr x 24 hrs to provide 1200ml, 1440kcal, 72g, 966ml free water * Maintain current TF * HOB over 30 degrees/ water flush per MD ADDITIONAL RECOMMENDATIONS: * Calibrated bedscale wt -w/ added p200 mattress + pump * Wound healing: TF @ goal will provide 100% RDI Continue Vit C 250mg QD + add Endy BID via PEG * Monitor lytes closely w/ Lasix, replete as needed * Monitor BGs, rec increasing Levemir (POC glu [phone]) . (3) Elevated troponin (4) Pneumonia (5) Encounter for generalized patient complaints (6) Decubitus skin ulcer Assessment & Plan: Patient presented on admission with an Unstageable Sacral Pressure injury(L)9.8cm x (W)6.7cm. Base of wound is 80% necrotic ,20% mixed slough ,beefy red. Small amt serous exudate. Mild odor noted. Borders are macerated with surrounding maroon and indurated borders. MASD noted to Mons-pubis outer aspects of R and L buttocks. Perineum and bilat ischial tuberosities. Affected areas mentioned are erythematous, macerated with scattered satellite lesions. Non-Blanchable erythema without induration or fluctuance R and L Heels. Skin assessed under tracheal collar and no evidence of skin breakdown noted. A ssessed pt and necrotic base of Sacral wound crosshatched by Md. Unstageable Sacral Pressure Injury (L)9.8cm x (W)7cm. 90% dry necrotic cap ,10% lj borders. Edges are adherent to base of wound. Periwound is pink and dry. No odor or exudate noted. Small external haemorrhoid with small amt bleeding noted. R and L heels are both blanchable. No new skin concerns noted. Wound Tx are effective and continued as ordered . All wound prevention protocols continued as care-planned. Pt has an APM/DANIEL Mattress overlay and is being positioned as per tolerance and within protocols. s/p excisional debridement of stage 4 decubitus ulcer Tx.Plan: Cleanse Sacral wound with Saline. Apply TheraHoney. Apply Moisture Barrier Paste periwound. Cover with Optifoam Drsg. Change Daily and prn. Apply Moisture Barrier Paste to Mons Pubis, Perineum and buttocks with each Incontinence care. Apply Cavilon Skin Barrier to Both heels and Malleoli. Cover each site with Optifoam Drsg. Change every 7 days and prn. Reposition at least every 2hours or as tolerated. Off-load heels with Pillow. Reposition at least every 2hours or as tolerated. APM/DANIEL mattress overlay. Adrian Gar Jun 20, 2020 08:41
[2020-06-20] MEDS: Ascorbic Acid 500mg tab GT SCH (08:59)
[2020-06-20] MEDS: Eliquis 5mg tablet GT SCH ×2 (08:59→17:21)
[2020-06-20] MEDS: Pantoprazole Inj IVP SCH (09:01)
[2020-06-20] MEDS: Cefepime 1gm in D5W 55ml IVPB SCH (09:02)
[2020-06-20] MEDS: Levemir Flexpen SUBQ SCH ×2 (09:07→21:06)
[2020-06-20] MEDS ORDERED: Tubing IV Blood Pump IV ONE (10:45)
[2020-06-20] MEDS ORDERED: Tubing IV Secondary IV ONE (10:46)
--- NOTE | 2020-06-20 12:27 | Infectious Diseases Prog Note ---
Assessment/Plan Assessment/Plan A: 1. sepsis. 2. Acinetobacter pneumonia treated 3. Leukocytosis improving 4. Diabetes. 5. Hypertension. 6. CVA. 7. Dementia. 8. COVID-19 test was negative. 9. 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 Hematuria 13. Candidal UTI PLAN: 1. Continue Cefepime & Zyvox 2. Wound care 3. Add Fluconazole Subjective ROS Limited/Unobtainable: Yes Allergies: Coded Allergies: No Known Allergies (Unverified , 05/15/20) Objective Last 24 Hour Vital Signs Date Time Temp Pulse Resp B/P (MAP) Pulse Ox O2 Delivery O2 Flow Rate FiO2 06/20/20 12:00 164/78 06/20/20 11:58 164/78 06/20/20 11:48 98.1 87 22 164/78 (106) 100 06/20/20 09:00 Trach Collar 6.0 06/20/20 08:58 157/75 06/20/20 08:06 84 06/20/20 08:00 98.0 82 20 157/75 (102) 98 06/20/20 07:03 98 T-Piece 6.0 28 06/20/20 05:48 88 134/80 06/20/20 04:00 88 06/20/20 04:00 99.5 88 18 148/74 (98) 96 06/20/20 01:23 97 T-Piece 6.0 28 06/20/20 00:00 82 06/20/20 00:00 99.0 82 18 127/52 (77) 96 06/19/20 21:55 88 155/80 06/19/20 21:00 Trach Collar 6.0 06/19/20 20:00 98.8 84 18 138/50 (79) 97 06/19/20 20:00 89 06/19/20 19:43 97 T-Piece 6.0 28 06/19/20 17:34 152/77 06/19/20 16:00 97.9 83 18 152/77 (102) 99 06/19/20 15:41 83 06/19/20 13:41 133/70 06/19/20 13:41 87 133/70 06/19/20 13:40 97 T-Piece 6.0 28 Height (Feet): 5 Height (Inches): 3.00 Weight (Pounds): 157 General Appearance: no acute distress HEENT: status post trach Respiratory/Chest: lungs clear, other - on T bar Cardiovascular: normal rate Abdomen: soft, non tender Genitourinary: other - Hinkle catheter Extremities: no edema Neurologic/Psychiatric: unresponsiveness, aphasia Microbiology Date/Time Source Procedure Growth Status 06/18/20 05:50 Urine,Clean Catch Urine Culture - Preliminary Yeast Species Resulted Laboratory Tests Test 06/19/20 13:35 06/19/20 17:25 06/19/20 21:50 06/20/20 05:40 White Blood Count 22.6 K/UL (4.8-10.8) *H Red Blood Count 3.96 M/UL (4.20-5.40) L Hemoglobin 10.1 G/DL (12.0-16.0) L Hematocrit 30.8 % (37.0-47.0) L Mean Corpuscular Volume 78 FL (80-99) L Mean Corpuscular Hemoglobin 25.5 PG (27.0-31.0) L Mean Corpuscular Hemoglobin Concent 32.7 G/DL (32.0-36.0) Red Cell Distribution Width 15.9 % (11.6-14.8) H Platelet Count 351 K/UL (150-450) Mean Platelet Volume 6.8 FL (6.5-10.1) Neutrophils (%) (Auto) % (45.0-75.0) Lymphocytes (%) (Auto) % (20.0-45.0) Monocytes (%) (Auto) % (1.0-10.0) Eosinophils (%) (Auto) % (0.0-3.0) Basophils (%) (Auto) % (0.0-2.0) Differential Total Cells Counted 100 Neutrophils % (Manual) 90 % (45-75) H Lymphocytes % (Manual) 7 % (20-45) L Monocytes % (Manual) 2 % (1-10) Eosinophils % (Manual) 0 % (0-3) Basophils % (Manual) 1 % (0-2) Band Neutrophils 0 % (0-8) Platelet Estimate Adequate Platelet Morphology Normal Hypochromasia 1+ Anisocytosis 1+ Microcytosis 1+ POC Whole Blood Glucose 181 MG/DL (74-106) H Pending 129 MG/DL (74-106) H Test 06/20/20 11:28 POC Whole Blood Glucose Pending Current Medications Medications (Trade) Dose Ordered Sig/Cayden Route PRN Reason Start Time Stop Time Status Last Admin Dose Admin Acetaminophen (Tylenol) 650 mg Q4H PRN GT Pain 05/26/20 07:45 06/25/20 07:44 06/16/20 22:01 Apixaban (Eliquis) 5 mg BID GT 06/20/20 09:00 09/18/20 08:59 06/20/20 08:59 Ascorbic Acid (Vitamin C) 250 mg DAILY GT 05/28/20 09:00 06/27/20 08:59 06/20/20 08:59 Cefepime HCl 1 gm/ Dextrose 55 ml @ 110 mls/hr Q24H IVPB 06/15/20 09:00 06/22/20 08:59 06/20/20 09:02 Clonidine HCl (Catapres Tab) 0.1 mg Q4H PRN GT for sbp>150 06/20/20 08:15 09/01/20 08:59 06/20/20 11:58 Dextrose (Dextrose 50%) 25 ml Q30M PRN IV Hypoglycemia 05/26/20 07:30 08/24/20 07:29 Dextrose (Dextrose 50%) 50 ml Q30M PRN IV Hypoglycemia 05/26/20 07:30 08/24/20 07:29 Insulin Aspart (NovoLOG) Q6HR SUBQ 05/26/20 12:00 08/24/20 11:59 06/20/20 11:57 Insulin Detemir (Levemir) 24 units EVERY 12 HOURS SUBQ 06/16/20 09:00 09/14/20 08:59 06/20/20 09:07 Isosorbide Dinitrate (Isordil) 20 mg THREE TIMES A DAY GT 06/02/20 13:00 07/02/20 12:59 06/20/20 12:00 Linezolid (Zyvox) 600 mg EVERY 12 HOURS GT 06/19/20 21:00 06/24/20 20:59 06/20/20 08:58 Metoprolol Tartrate (Lopressor) 50 mg EVERY 8 HOURS GT 05/28/20 22:00 08/26/20 21:59 06/20/20 05:48 Pantoprazole (Protonix) 40 mg DAILY IVP 05/26/20 09:00 06/25/20 08:59 06/20/20 09:01 Sodium Chloride 1,000 ml @ 100 mls/hr Q10H IV 06/20/20 01:45 07/20/20 01:44 06/20/20 01:45 Colby Rock MD Jun 20, 2020 12:27
[2020-06-20] MEDS: Fluconazole 100mg tab GT SCH (14:08)
[2020-06-21] VITALS: BP 133/61
[2020-06-21] MEDS: NovoLOG Insulin Flexpen SUBQ SCH ×4 (00:29→18:13)
--- NOTE | 2020-06-21 03:21 | Cardiology Progress Note ---
Subjective DATE OF SERVICE: Jun 20, 2020 On T-collar UA still with TNTC white and red cells; culture grew vicki. Continued with abnormal renal function Still with hematuria; anticoagulation on hold. BP range elevated at times, but improving Glucose trend continues to be elevated. Sputum culture A.baumanni Monitor: Sinus with PAFIb and short runs of aberrancy. CT scan: Pulmonary edema and pleural effusion Wound with abscess or gas forming organisms Objective Last 24 Hour Vital Signs Date Time Temp Pulse Resp B/P (MAP) Pulse Ox O2 Delivery O2 Flow Rate FiO2 06/21/20 00:13 96 T-Piece 6.0 28 06/21/20 00:00 75 06/21/20 00:00 97.5 78 22 133/61 (85) 100 06/20/20 21:16 84 150/70 06/20/20 21:00 Trach Collar 5.0 06/20/20 20:00 97.5 84 22 150/70 (96) 100 06/20/20 20:00 85 06/20/20 19:52 95 T-Piece 6.0 28 06/20/20 17:21 149/73 06/20/20 15:49 98.3 89 22 149/73 (98) 98 06/20/20 15:14 78 06/20/20 14:08 84 121/62 06/20/20 13:41 84 121/62 (81) 06/20/20 13:27 97 T-Piece 6.0 28 06/20/20 12:00 164/78 06/20/20 11:58 164/78 06/20/20 11:48 98.1 87 22 164/78 (106) 100 06/20/20 11:42 90 06/20/20 09:00 Trach Collar 6.0 06/20/20 08:58 157/75 06/20/20 08:06 84 06/20/20 08:00 98.0 82 20 157/75 (102) 98 06/20/20 07:03 98 T-Piece 6.0 06/20/20 05:48 88 134/80 06/20/20 04:00 88 06/20/20 04:00 99.5 88 18 148/74 (98) 96 ROS: no change from my assessment of 05/25/20 - remains unobtainable from patient HEENT: normal ENT inspection, Thin Trach secretions RHYTHM: NSR, PACs LUNGS: diminished breath sounds - left, bilateral rhonchi CARDIAC: normal rate, regular rhythm, normal S1 and S2, arrhythmia ABDOMEN: normal bowel sounds, non tender, soft, G-Tube intact EXTREMITIES: trace edema, other - sacral decub. noncommunicative Laboratory Tests Test 06/20/20 05:40 06/20/20 11:28 06/20/20 16:16 06/20/20 20:39 POC Whole Blood Glucose 129 MG/DL (74-106) H Pending 160 MG/DL (74-106) H Pending Test 06/21/20 00:25 POC Whole Blood Glucose 157 MG/DL (74-106) H Microbiology Date/Time Source Procedure Growth Status 06/18/20 05:50 Urine,Clean Catch Urine Culture - Final Vicki Albicans Complete Assessment/Plan Assessment/Plan [facility] acquired fungal cystitis with resolving hematuria Left pleural effusion Acute myocardial ischemia with possible NSTE myocardial infarction Sepsis Respiratory failure Hypertension/HHD with elev BP Parox AFib Conduction system disease with bifasc block Chr diastolic CHF Low lipid parameters NSVT IRDM with hyperglycemia still Hypomagnesemia Contaminant in positive blood cultures Osteomyelitis Acute renal faillure Hyperkalemia Hematuria Resp Rx Antibiotics per ID geophysical computer Continue off diuretics and ACEi; add IVF IVF Anticoagulation resumed; observe for worsening bleeding. Titrate CV regimen based on clinical parameters - continue current antianginal regimen, including beta pietro. No need for statin Titrate insulin rx - advancing levemir. Wound care Monitor hemoglobin. John Heard MD Jun 21, 2020 03:21
[2020-06-21 04:00] VITALS: BP 149/69
[2020-06-21] MEDS: Metoprolol Tartrate 50mg tab GT SCH ×3 (05:43→22:43)
[2020-06-21 07:06] LABS: HEMATOCRIT 32.1 % (37.0-47.0); HEMOGLOBIN 10.3 G/DL (12.0-16.0); MEAN CORPUSCULAR VOLUME 80 FL (80-99); PLATELET COUNT 291 K/UL (150-450); RED BLOOD COUNT 4.03 M/UL (4.20-5.40); RED CELL DISTRIBUTION WIDTH 16.7 % (11.6-14.8)
[2020-06-21 07:25] LABS: WHITE BLOOD COUNT 22.9 K/UL (4.8-10.8)
--- NOTE | 2020-06-21 07:47 | Pulmonology Progress Note ---
Subjective ROS Limited/Unobtainable: Yes Constitutional: Denies: fever Allergies: Coded Allergies: No Known Allergies (Unverified , 05/15/20) Subjective care noted elevated ESR and osteo elevated wbc Objective Last 24 Hour Vital Signs Date Time Temp Pulse Resp B/P (MAP) Pulse Ox O2 Delivery O2 Flow Rate FiO2 06/21/20 05:43 81 149/69 06/21/20 04:00 97.7 81 22 149/69 (95) 100 06/21/20 04:00 81 06/21/20 00:13 96 T-Piece 6.0 28 06/21/20 00:00 75 06/21/20 00:00 97.5 78 22 133/61 (85) 100 06/20/20 21:16 84 150/70 06/20/20 21:00 Trach Collar 5.0 06/20/20 20:00 97.5 84 22 150/70 (96) 100 06/20/20 20:00 85 06/20/20 19:52 95 T-Piece 6.0 28 06/20/20 17:21 149/73 06/20/20 15:49 98.3 89 22 149/73 (98) 98 06/20/20 15:14 78 06/20/20 14:08 84 121/62 06/20/20 13:41 84 121/62 (81) 06/20/20 13:27 97 T-Piece 6.0 28 06/20/20 12:00 164/78 06/20/20 11:58 164/78 06/20/20 11:48 98.1 87 22 164/78 (106) 100 06/20/20 11:42 90 06/20/20 09:00 Trach Collar 6.0 06/20/20 08:58 157/75 06/20/20 08:06 84 06/20/20 08:00 98.0 82 20 157/75 (102) 98 Intake and Output 06/20/20 06/21/20 19:00 07:00 Intake Total 1975 ml 1438.3 ml Output Total 300 ml Balance 1675 ml 1438.3 ml Free Water 220 ml 60 ml IV Total 1155 ml 828.3 ml Tube Feeding 600 ml 550 ml Output Urine Total 300 ml # Bowel Movements 1 3 Objective WDWN NAD trach reduced breath sounds bilaterally without rhonchi [id number] without MRG NABS nontender GT no CCE withdrawn Laboratory Tests 06/20/20 11:28: POC Whole Blood Glucose [Pending] 06/20/20 16:16: POC Whole Blood Glucose 160H 06/20/20 20:39: POC Whole Blood Glucose [Pending] 06/21/20 00:25: POC Whole Blood Glucose 157H 06/21/20 05:41: POC Whole Blood Glucose 132H 06/21/20 06:29: White Blood Count 22.9*H, Red Blood Count 4.03L, Hemoglobin 10.3L, Hematocrit 32.1L, Mean Corpuscular Volume 80, Mean Corpuscular Hemoglobin 25.5L, Mean Corpuscular Hemoglobin Concent 32.0, Red Cell Distribution Width 16.7H, Platelet Count 291, Mean Platelet Volume 6.9, Neutrophils (%) (Auto) , Lymphocytes (%) (Auto) , Monocytes (%) (Auto) , Eosinophils (%) (Auto) , Basophils (%) (Auto) , Neutrophils % (Manual) [Pending], Lymphocytes % (Manual) [Pending], Platelet Estimate [Pending], Platelet Morphology [Pending], Erythrocyte Sedimentation Rate [Pending], Sodium Level [Pending], Potassium Level [Pending], Chloride Level [Pending], Carbon Dioxide Level [Pending], Blood Urea Nitrogen [Pending], Creatinine [Pending], Estimat Glomerular Filtration Rate [Pending], Glucose Level [Pending], Calcium Level [Pending], Total Bilirubin [Pending], Aspartate Amino Transf (AST/SGOT) [Pending], Alanine Aminotransferase (ALT/SGPT) [Pending], Alkaline Phosphatase [Pending], C-Reactive Protein, Quantitative [Pending], Total Protein [Pending], Albumin [Pending], Globulin [Pending], Amylase Level [Pending], Lipase [Pending] Current Medications Medications (Trade) Dose Ordered Sig/Cayden Route PRN Reason Start Time Stop Time Status Last Admin Dose Admin Acetaminophen (Tylenol) 650 mg Q4H PRN GT Pain 05/26/20 07:45 06/25/20 07:44 06/16/20 22:01 Apixaban (Eliquis) 5 mg BID GT 06/20/20 09:00 09/18/20 08:59 06/20/20 17:21 Ascorbic Acid (Vitamin C) 250 mg DAILY GT 05/28/20 09:00 06/27/20 08:59 06/20/20 08:59 Cefepime HCl 1 gm/ Dextrose 55 ml @ 110 mls/hr Q24H IVPB 06/15/20 09:00 06/22/20 08:59 06/20/20 09:02 Clonidine HCl (Catapres Tab) 0.1 mg Q4H PRN GT for sbp>150 06/20/20 08:15 09/01/20 08:59 06/20/20 11:58 Dextrose (Dextrose 50%) 25 ml Q30M PRN IV Hypoglycemia 05/26/20 07:30 08/24/20 07:29 Dextrose (Dextrose 50%) 50 ml Q30M PRN IV Hypoglycemia 05/26/20 07:30 08/24/20 07:29 Fluconazole (Diflucan) 100 mg DAILY GT 06/20/20 13:00 06/27/20 12:59 06/20/20 14:08 Insulin Aspart (NovoLOG) Q6HR SUBQ 05/26/20 12:00 08/24/20 11:59 06/21/20 00:29 Insulin Detemir (Levemir) 24 units EVERY 12 HOURS SUBQ 06/16/20 09:00 09/14/20 08:59 06/20/20 21:06 Isosorbide Dinitrate (Isordil) 20 mg THREE TIMES A DAY GT 06/02/20 13:00 07/02/20 12:59 06/20/20 17:21 Linezolid (Zyvox) 600 mg EVERY 12 HOURS GT 06/19/20 21:00 06/24/20 20:59 06/20/20 21:03 Metoprolol Tartrate (Lopressor) 50 mg EVERY 8 HOURS GT 05/28/20 22:00 08/26/20 21:59 06/21/20 05:43 Pantoprazole (Protonix) 40 mg DAILY IVP 05/26/20 09:00 06/25/20 08:59 06/20/20 09:01 Sodium Chloride 1,000 ml @ 100 mls/hr Q10H IV 06/20/20 01:45 07/20/20 01:44 06/21/20 05:43 Assessment/Plan Assessment/Plan IMPRESSION leukocytosis, worse Afib, chronic encephalopathy trach respiratory failure elevated troponin anemia bacteremia- staph fevers better hypertension osteo hematuria diabetes UTI with candiida PLAN wbc not improving flucon added antibiotics noted respiratory care snf meds suction monitor cultures eliquis resumed and monitor for bleeding card follow up ID follow up and recommendations - not stable for dc impression, plan, and exam edited and reviewed in detail care discussed with Fernie Ledezma MD Jun 21, 2020 07:47
[2020-06-21 08:00] VITALS: BP 155/71
[2020-06-21 08:09] LABS: AMYLASE 40 U/L (25-115)
[2020-06-21 08:14] LABS: ALBUMIN 1.8 G/DL (3.4-5.0); ALBUMIN/GLOBULIN RATIO 0.4 (1.0-2.7); BILIRUBIN,TOTAL 0.4 MG/DL (0.2-1.0); CALCIUM 8.5 MG/DL (8.5-10.1); CREATININE 1.3 MG/DL (0.55-1.30); POTASSIUM 4.6 MMOL/L (3.5-5.1)
[2020-06-21] MEDS: Pantoprazole Inj IVP SCH (08:56)
[2020-06-21] MEDS: Fluconazole 100mg tab GT SCH (08:57)
[2020-06-21] MEDS: Ascorbic Acid 500mg tab GT SCH (08:57)
[2020-06-21] MEDS: Eliquis 5mg tablet GT SCH ×3 (08:58→18:00)
[2020-06-21] MEDS: Cefepime 1gm in D5W 55ml IVPB SCH (09:00)
[2020-06-21] MEDS: Levemir Flexpen SUBQ SCH ×2 (09:01→20:48)
--- NOTE | 2020-06-21 11:11 | Infectious Diseases Prog Note ---
Assessment/Plan Assessment/Plan antibiotics : linezolid, cefepime, fluconazole A 1. acenitobacter pneumonia s/p rx 2. + blood cultures with coag neg staph likely contaminated 3. leucocytosis improving 4. diabetes mellitus 5. hypertension 6. CVA 7. dementia 8. coccygeal osteomyelitis s/p debridement 9. renal failure 10. fungal UTI P 1. continue cefepime, linezolid 2. continue fluconazole 4 more days 3. will follow up cultures Subjective ROS Limited/Unobtainable: Yes Allergies: Coded Allergies: No Known Allergies (Unverified , 05/15/20) Objective Last 24 Hour Vital Signs Date Time Temp Pulse Resp B/P (MAP) Pulse Ox O2 Delivery O2 Flow Rate FiO2 06/21/20 08:59 155/71 06/21/20 08:59 155/71 06/21/20 08:00 97.5 79 20 155/71 (99) 98 06/21/20 07:35 97 T-Piece 6.0 28 06/21/20 05:43 81 149/69 06/21/20 04:00 97.7 81 22 149/69 (95) 100 06/21/20 04:00 81 06/21/20 00:13 96 T-Piece 6.0 28 06/21/20 00:00 75 06/21/20 00:00 97.5 78 22 133/61 (85) 100 06/20/20 21:16 84 150/70 06/20/20 21:00 Trach Collar 5.0 06/20/20 20:00 97.5 84 22 150/70 (96) 100 06/20/20 20:00 85 06/20/20 19:52 95 T-Piece 6.0 28 06/20/20 17:21 149/73 06/20/20 15:49 98.3 89 22 149/73 (98) 98 06/20/20 15:14 78 06/20/20 14:08 84 121/62 06/20/20 13:41 84 121/62 (81) 06/20/20 13:27 97 T-Piece 6.0 28 06/20/20 12:00 164/78 06/20/20 11:58 164/78 06/20/20 11:48 98.1 87 22 164/78 (106) 100 06/20/20 11:42 90 Height (Feet): 5 Height (Inches): 3.00 Weight (Pounds): 157 HEENT: status post trach Respiratory/Chest: lungs clear Cardiovascular: normal rate, regular rhythm, no gallop/murmur Abdomen: soft, non tender, other - GT Extremities: no edema Laboratory Tests Test 06/20/20 11:28 06/20/20 16:16 06/20/20 20:39 06/21/20 00:25 POC Whole Blood Glucose Pending 160 MG/DL (74-106) H Pending 157 MG/DL (74-106) H Test 06/21/20 05:41 06/21/20 06:29 POC Whole Blood Glucose 132 MG/DL (74-106) H White Blood Count 22.9 K/UL (4.8-10.8) *H Red Blood Count 4.03 M/UL (4.20-5.40) L Hemoglobin 10.3 G/DL (12.0-16.0) L Hematocrit 32.1 % (37.0-47.0) L Mean Corpuscular Volume 80 FL (80-99) Mean Corpuscular Hemoglobin 25.5 PG (27.0-31.0) L Mean Corpuscular Hemoglobin Concent 32.0 G/DL (32.0-36.0) Red Cell Distribution Width 16.7 % (11.6-14.8) H Platelet Count 291 K/UL (150-450) Mean Platelet Volume 6.9 FL (6.5-10.1) Neutrophils (%) (Auto) % (45.0-75.0) Lymphocytes (%) (Auto) % (20.0-45.0) Monocytes (%) (Auto) % (1.0-10.0) Eosinophils (%) (Auto) % (0.0-3.0) Basophils (%) (Auto) % (0.0-2.0) Differential Total Cells Counted 100 Neutrophils % (Manual) 86 % (45-75) H Lymphocytes % (Manual) 8 % (20-45) L Monocytes % (Manual) 6 % (1-10) Eosinophils % (Manual) 0 % (0-3) Basophils % (Manual) 0 % (0-2) Band Neutrophils 0 % (0-8) Platelet Estimate Adequate Platelet Morphology Normal Anisocytosis 1+ Microcytosis 2+ Erythrocyte Sedimentation Rate 90 MM/HR (0-30) H Sodium Level 142 MMOL/L (136-145) Potassium Level 4.6 MMOL/L (3.5-5.1) Chloride Level 106 MMOL/L (98-107) Carbon Dioxide Level 21 MMOL/L (21-32) Anion Gap 15 mmol/L (5-15) Blood Urea Nitrogen 66 mg/dL (7-18) H Creatinine 1.3 MG/DL (0.55-1.30) Estimat Glomerular Filtration Rate 40.1 mL/min (>60) Glucose Level 135 MG/DL (74-106) H Calcium Level 8.5 MG/DL (8.5-10.1) Total Bilirubin 0.4 MG/DL (0.2-1.0) Aspartate Amino Transf (AST/SGOT) 15 U/L (15-37) Alanine Aminotransferase (ALT/SGPT) 13 U/L (12-78) Alkaline Phosphatase 131 U/L (46-116) H C-Reactive Protein, Quantitative 14.2 mg/dL (0.00-0.90) H Total Protein 6.7 G/DL (6.4-8.2) Albumin 1.8 G/DL (3.4-5.0) L Globulin 4.9 g/dL Albumin/Globulin Ratio 0.4 (1.0-2.7) L Amylase Level 40 U/L (25-115) Lipase 199 U/L (73-393) Current Medications Medications (Trade) Dose Ordered Sig/Cayden Route PRN Reason Start Time Stop Time Status Last Admin Dose Admin Acetaminophen (Tylenol) 650 mg Q4H PRN GT Pain 05/26/20 07:45 06/25/20 07:44 06/16/20 22:01 Apixaban (Eliquis) 5 mg BID GT 06/20/20 09:00 09/18/20 08:59 06/20/20 17:21 Ascorbic Acid (Vitamin C) 250 mg DAILY GT 05/28/20 09:00 06/27/20 08:59 06/21/20 08:57 Cefepime HCl 1 gm/ Dextrose 55 ml @ 110 mls/hr Q24H IVPB 06/15/20 09:00 06/22/20 08:59 06/21/20 09:00 Clonidine HCl (Catapres Tab) 0.1 mg Q4H PRN GT for sbp>150 06/20/20 08:15 09/01/20 08:59 06/21/20 08:59 Dextrose (Dextrose 50%) 25 ml Q30M PRN IV Hypoglycemia 05/26/20 07:30 08/24/20 07:29 Dextrose (Dextrose 50%) 50 ml Q30M PRN IV Hypoglycemia 05/26/20 07:30 08/24/20 07:29 Fluconazole (Diflucan) 100 mg DAILY GT 06/20/20 13:00 06/27/20 12:59 06/21/20 08:57 Insulin Aspart (NovoLOG) Q6HR SUBQ 05/26/20 12:00 08/24/20 11:59 06/21/20 00:29 Insulin Detemir (Levemir) 24 units EVERY 12 HOURS SUBQ 06/16/20 09:00 09/14/20 08:59 06/21/20 09:01 Isosorbide Dinitrate (Isordil) 20 mg THREE TIMES A DAY GT 06/02/20 13:00 07/02/20 12:59 06/21/20 08:59 Linezolid (Zyvox) 600 mg EVERY 12 HOURS GT 06/19/20 21:00 06/24/20 20:59 06/21/20 08:56 Metoprolol Tartrate (Lopressor) 50 mg EVERY 8 HOURS GT 05/28/20 22:00 08/26/20 21:59 06/21/20 05:43 Pantoprazole (Protonix) 40 mg DAILY IVP 05/26/20 09:00 06/25/20 08:59 06/21/20 08:56 Sodium Chloride 1,000 ml @ 100 mls/hr Q10H IV 06/20/20 01:45 07/20/20 01:44 06/21/20 08:55 Mina Salamanca MD Jun 21, 2020 11:11
[2020-06-21 11:31] VITALS: BP 132/62
--- NOTE | 2020-06-21 13:37 | Surgery Progress Note ---
Surgery Progress Note Subjective Procedure Performed Excisional debridement of sacral decubitus ulcer 10 cm x 10 cm x 4 cm deep down to bone Additional Comments leukocytosis esr/crp significantly improved comfortable Objective Last 24 Hour Vital Signs Date Time Temp Pulse Resp B/P (MAP) Pulse Ox O2 Delivery O2 Flow Rate FiO2 06/21/20 12:12 132/62 06/21/20 12:00 73 06/21/20 11:31 97.7 77 22 132/62 (85) 98 06/21/20 09:00 Trach Collar 5.0 06/21/20 08:59 155/71 06/21/20 08:59 155/71 06/21/20 08:00 79 06/21/20 08:00 97.5 79 20 155/71 (99) 98 06/21/20 07:35 97 T-Piece 6.0 28 06/21/20 05:43 81 149/69 06/21/20 04:00 97.7 81 22 149/69 (95) 100 06/21/20 04:00 81 06/21/20 00:13 96 T-Piece 6.0 28 06/21/20 00:00 75 06/21/20 00:00 97.5 78 22 133/61 (85) 100 06/20/20 21:16 84 150/70 06/20/20 21:00 Trach Collar 5.0 06/20/20 20:00 97.5 84 22 150/70 (96) 100 06/20/20 20:00 85 06/20/20 19:52 95 T-Piece 6.0 28 06/20/20 17:21 149/73 06/20/20 15:49 98.3 89 22 149/73 (98) 98 06/20/20 15:14 78 06/20/20 14:08 84 121/62 06/20/20 13:41 84 121/62 (81) I&O Intake and Output 06/20/20 06/21/20 19:00 07:00 Intake Total 1975 ml 1438.3 ml Output Total 300 ml Balance 1675 ml 1438.3 ml Free Water 220 ml 60 ml IV Total 1155 ml 828.3 ml Tube Feeding 600 ml 550 ml Output Urine Total 300 ml # Bowel Movements 1 3 Dressing: other Cardiovascular: RSR Respiratory: decreased breath sounds Abdomen: soft, non-tender, present bowel sounds Extremities: no tenderness, no cyanosis Laboratory Tests Test 06/20/20 16:16 06/20/20 20:39 06/21/20 00:25 06/21/20 05:41 POC Whole Blood Glucose 160 MG/DL (74-106) H Pending 157 MG/DL (74-106) H 132 MG/DL (74-106) H Test 06/21/20 06:29 06/21/20 11:41 White Blood Count 22.9 K/UL (4.8-10.8) *H Red Blood Count 4.03 M/UL (4.20-5.40) L Hemoglobin 10.3 G/DL (12.0-16.0) L Hematocrit 32.1 % (37.0-47.0) L Mean Corpuscular Volume 80 FL (80-99) Mean Corpuscular Hemoglobin 25.5 PG (27.0-31.0) L Mean Corpuscular Hemoglobin Concent 32.0 G/DL (32.0-36.0) Red Cell Distribution Width 16.7 % (11.6-14.8) H Platelet Count 291 K/UL (150-450) Mean Platelet Volume 6.9 FL (6.5-10.1) Neutrophils (%) (Auto) % (45.0-75.0) Lymphocytes (%) (Auto) % (20.0-45.0) Monocytes (%) (Auto) % (1.0-10.0) Eosinophils (%) (Auto) % (0.0-3.0) Basophils (%) (Auto) % (0.0-2.0) Differential Total Cells Counted 100 Neutrophils % (Manual) 86 % (45-75) H Lymphocytes % (Manual) 8 % (20-45) L Monocytes % (Manual) 6 % (1-10) Eosinophils % (Manual) 0 % (0-3) Basophils % (Manual) 0 % (0-2) Band Neutrophils 0 % (0-8) Platelet Estimate Adequate Platelet Morphology Normal Anisocytosis 1+ Microcytosis 2+ Erythrocyte Sedimentation Rate 90 MM/HR (0-30) H Sodium Level 142 MMOL/L (136-145) Potassium Level 4.6 MMOL/L (3.5-5.1) Chloride Level 106 MMOL/L (98-107) Carbon Dioxide Level 21 MMOL/L (21-32) Anion Gap 15 mmol/L (5-15) Blood Urea Nitrogen 66 mg/dL (7-18) H Creatinine 1.3 MG/DL (0.55-1.30) Estimat Glomerular Filtration Rate 40.1 mL/min (>60) Glucose Level 135 MG/DL (74-106) H Calcium Level 8.5 MG/DL (8.5-10.1) Total Bilirubin 0.4 MG/DL (0.2-1.0) Aspartate Amino Transf (AST/SGOT) 15 U/L (15-37) Alanine Aminotransferase (ALT/SGPT) 13 U/L (12-78) Alkaline Phosphatase 131 U/L (46-116) H C-Reactive Protein, Quantitative 14.2 mg/dL (0.00-0.90) H Total Protein 6.7 G/DL (6.4-8.2) Albumin 1.8 G/DL (3.4-5.0) L Globulin 4.9 g/dL Albumin/Globulin Ratio 0.4 (1.0-2.7) L Amylase Level 40 U/L (25-115) Lipase 199 U/L (73-393) POC Whole Blood Glucose 146 MG/DL (74-106) H Assessment Post-op Diagnosis Stage IV sacral decubitus ulcer Plan Problems: (1) Anemia (2) Sepsis Assessment & Plan: 74-year-old female with medical comorbidities present with leukocytosis anemia abnormal labs hypoalbuminemia failure to thrive malnutrition worsening decubitus ulcer admitted further care and management was prior on vancomycin now on IV antibiotics admitted and under monitoring. Full evaluation does not at the bedside and evaluation performed. Trach stable PEG tube stable skin deteriorating per her turgor worsening decubitus ulcer malnutrition continue tube feeds as tolerated continue antibiotics wounds unlikely etiology of patient's sepsis we will monitor and follow with recommendations trend labs thank you for letting participate patient's care improving 06/13 acute severe leukocytosis abx changed wound improved since debridement will monitor cont abx cont dressings trend labs DAILY ESTIMATED NEEDS: Needs based on Wound, DM/ 57kg abw 25-30 kcals/kg 2445-4020 total kcals 1.25-1.8 g protein/kg 71-103 g total protein 20-25 mL/kg 7764-3807 total fluid mLs NUTRITION DIAGNOSIS: * Increased kcal/prot needs R/T wound healing as evidenced by pt admiteed w/ unstageable sacral wound, refer to full wound care eval. * Swallowing difficulty R/T dysphagia, respiratory status as evidenced by pt on T-collar, PEG dep. CURRENT TF:Glucerna 1.2 @ 50ml/hr x 24 hrs ENTERAL NUTRITION RECOMMENDATIONS: Glucerna 1.2 @ 50ml/hr x 24 hrs to provide 1200ml, 1440kcal, 72g, 966ml free water * Maintain current TF * HOB over 30 degrees/ water flush per MD ADDITIONAL RECOMMENDATIONS: * Calibrated bedscale wt -w/ added p200 mattress + pump * Wound healing: TF @ goal will provide 100% RDI Continue Vit C 250mg QD + add Endy BID via PEG * Monitor lytes closely w/ Lasix, replete as needed * Monitor BGs, rec increasing Levemir (POC glu [id number]) . (3) Elevated troponin (4) Pneumonia (5) Encounter for generalized patient complaints (6) Decubitus skin ulcer Assessment & Plan: Patient presented on admission with an Unstageable Sacral Pressure injury(L)9.8cm x (W)6.7cm. Base of wound is 80% necrotic ,20% mixed slough ,beefy red. Small amt serous exudate. Mild odor noted. Borders are macerated with surrounding maroon and indurated borders. MASD noted to Mons-pubis outer aspects of R and L buttocks. Perineum and bilat ischial tuberosities. Affected areas mentioned are erythematous, macerated with scattered satellite lesions. Non-Blanchable erythema without induration or fluctuance R and L Heels. Skin assessed under tracheal collar and no evidence of skin breakdown noted. Assessed pt and necrotic base of Sacral wound crosshatched by Md. Unstageable Sacral Pressure Injury (L)9.8cm x (W)7cm. 90% dry necrotic cap ,10% lj borders. Edges are adherent to base of wound. Periwound is pink and dry. No odor or exudate noted. Small external haemorrhoid with small amt bleeding noted. R and L heels are both blanchable. No new skin concerns noted. Wound Tx are effective and continued as ordered . All wound prevention protocols continued as care-planned. Pt has an APM/DANIEL Mattress overlay and is being positioned as per tolerance and within protocols. s/p excisional debridement of stage 4 decubitus ulcer Tx.Plan: Cleanse Sacral wound with Saline. Apply TheraHoney. Apply Moisture Barrier Paste periwound. Cover with Optifoam Drsg. Change Daily and prn. Apply Moisture Barrier Paste to Mons Pubis, Perineum and buttocks with each Incontinence care. Apply Cavilon Skin Barrier to Both heels and Malleoli. Cover each site with Optifoam Drsg. Change every 7 days and prn. Reposition at least every 2hours or as tolerated. Off-load heels with Pillow. Reposition at least every 2hours or as tolerated. APM/DANIEL mattress overlay. Adrian Gar Jun 21, 2020 13:37
[2020-06-21 16:00] VITALS: BP 137/68
[2020-06-21 20:00] VITALS: BP 135/62
[2020-06-22] VITALS: BP 145/70
--- NOTE | 2020-06-22 00:19 | Cardiology Progress Note ---
Subjective DATE OF SERVICE: Jun 21, 2020 On T-collar UA still with TNTC white and red cells; culture grew wicho and diflucan added. Continued with abnormal renal function Still with hematuria; anticoagulation on hold. BP range elevated at times, but improving Glucose trend continues to be elevated. Sputum culture A.baumanni Monitor: Sinus with PAFIb and short runs of aberrancy. CT scan: Pulmonary edema and pleural effusion Objective Last 24 Hour Vital Signs Date Time Temp Pulse Resp B/P (MAP) Pulse Ox O2 Delivery O2 Flow Rate FiO2 06/22/20 00:00 97.5 75 22 145/70 (95) 95 06/21/20 22:43 84 135/62 06/21/20 21:00 Trach Collar 5.0 06/21/20 20:37 96 T-Piece 6.0 28 06/21/20 20:00 97.5 84 22 135/62 (86) 96 06/21/20 18:13 137/68 06/21/20 16:00 76 06/21/20 16:00 96.4 72 22 137/68 (91) 100 06/21/20 13:40 73 132/62 06/21/20 13:00 96 T-Piece 6.0 28 06/21/20 12:12 132/62 06/21/20 12:00 73 06/21/20 11:31 97.7 77 22 132/62 (85) 98 06/21/20 09:00 Trach Collar 5.0 06/21/20 08:59 155/71 06/21/20 08:59 155/71 06/21/20 08:00 79 06/21/20 08:00 97.5 79 20 155/71 (99) 98 06/21/20 07:35 97 T-Piece 6.0 28 06/21/20 05:43 81 149/69 06/21/20 04:00 97.7 81 22 149/69 (95) 100 06/21/20 04:00 81 ROS: no change from my assessment of 05/25/20 - remains unobtainable from patient HEENT: normal ENT inspection, Thin Trach secretions RHYTHM: NSR, PACs LUNGS: diminished breath sounds - left, bilateral rhonchi CARDIAC: normal rate, regular rhythm, normal S1 and S2, arrhythmia ABDOMEN: normal bowel sounds, non tender, soft, G-Tube intact EXTREMITIES: trace edema, other - sacral decub. noncommunicative Laboratory Tests Test 06/21/20 00:25 06/21/20 05:41 06/21/20 06:29 06/21/20 11:41 POC Whole Blood Glucose 157 MG/DL (74-106) H 132 MG/DL (74-106) H 146 MG/DL (74-106) H White Blood Count 22.9 K/UL (4.8-10.8) *H Red Blood Count 4.03 M/UL (4.20-5.40) L Hemoglobin 10.3 G/DL (12.0-16.0) L Hematocrit 32.1 % (37.0-47.0) L Mean Corpuscular Volume 80 FL (80-99) Mean Corpuscular Hemoglobin 25.5 PG (27.0-31.0) L Mean Corpuscular Hemoglobin Concent 32.0 G/DL (32.0-36.0) Red Cell Distribution Width 16.7 % (11.6-14.8) H Platelet Count 291 K/UL (150-450) Mean Platelet Volume 6.9 FL (6.5-10.1) Neutrophils (%) (Auto) % (45.0-75.0) Lymphocytes (%) (Auto) % (20.0-45.0) Monocytes (%) (Auto) % (1.0-10.0) Eosinophils (%) (Auto) % (0.0-3.0) Basophils (%) (Auto) % (0.0-2.0) Differential Total Cells Counted 100 Neutrophils % (Manual) 86 % (45-75) H Lymphocytes % (Manual) 8 % (20-45) L Monocytes % (Manual) 6 % (1-10) Eosinophils % (Manual) 0 % (0-3) Basophils % (Manual) 0 % (0-2) Band Neutrophils 0 % (0-8) Platelet Estimate Adequate Platelet Morphology Normal Anisocytosis 1+ Microcytosis 2+ Erythrocyte Sedimentation Rate 90 MM/HR (0-30) H Sodium Level 142 MMOL/L (136-145) Potassium Level 4.6 MMOL/L (3.5-5.1) Chloride Level 106 MMOL/L (98-107) Carbon Dioxide Level 21 MMOL/L (21-32) Anion Gap 15 mmol/L (5-15) Blood Urea Nitrogen 66 mg/dL (7-18) H Creatinine 1.3 MG/DL (0.55-1.30) Estimat Glomerular Filtration Rate 40.1 mL/min (>60) Glucose Level 135 MG/DL (74-106) H Calcium Level 8.5 MG/DL (8.5-10.1) Total Bilirubin 0.4 MG/DL (0.2-1.0) Aspartate Amino Transf (AST/SGOT) 15 U/L (15-37) Alanine Aminotransferase (ALT/SGPT) 13 U/L (12-78) Alkaline Phosphatase 131 U/L (46-116) H C-Reactive Protein, Quantitative 14.2 mg/dL (0.00-0.90) H Total Protein 6.7 G/DL (6.4-8.2) Albumin 1.8 G/DL (3.4-5.0) L Globulin 4.9 g/dL Albumin/Globulin Ratio 0.4 (1.0-2.7) L Amylase Level 40 U/L (25-115) Lipase 199 U/L (73-393) Test 06/21/20 17:48 06/21/20 20:03 POC Whole Blood Glucose Pending 146 MG/DL (74-106) H Assessment/Plan Assessment/Plan [facility] acquired fungal cystitis with resolving hematuria Left pleural effusion Acute myocardial ischemia with possible NSTE myocardial infarction Sepsis Respiratory failure Hypertension/HHD with elev BP Parox AFib 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 IVF Anticoagulation resumed; observe for worsening bleeding. Titrate CV regimen based on clinical parameters - continue current antianginal regimen, including beta pietro. No need for statin Titrate insulin rx - advancing levemir. Wound care Monitor hemoglobin. John Heard MD Jun 22, 2020 00:19
[2020-06-22] MEDS: NovoLOG Insulin Flexpen SUBQ SCH ×4 (02:02→17:37)
[2020-06-22 04:00] VITALS: BP 169/77
[2020-06-22] MEDS: Metoprolol Tartrate 50mg tab GT SCH ×3 (05:32→21:57)
[2020-06-22 08:00] VITALS: BP 151/69
[2020-06-22] MEDS: Eliquis 5mg tablet GT SCH ×2 (09:00→17:36)
[2020-06-22] MEDS: Cefepime 1gm in D5W 55ml IVPB SCH (09:48)
[2020-06-22] MEDS: Pantoprazole Inj IVP SCH (09:48)
[2020-06-22] MEDS: Fluconazole 100mg tab GT SCH (09:52)
[2020-06-22] MEDS: Ascorbic Acid 500mg tab GT SCH (09:52)
[2020-06-22] MEDS: Levemir Flexpen SUBQ SCH ×2 (09:57→21:00)
[2020-06-22 10:18] LABS: HEMATOCRIT 30.2 % (37.0-47.0); HEMOGLOBIN 9.9 G/DL (12.0-16.0); MEAN CORPUSCULAR VOLUME 78 FL (80-99); PLATELET COUNT 259 K/UL (150-450); RED BLOOD COUNT 3.86 M/UL (4.20-5.40); RED CELL DISTRIBUTION WIDTH 16.5 % (11.6-14.8)
[2020-06-22 10:22] LABS: WHITE BLOOD COUNT 23.7 K/UL (4.8-10.8)
[2020-06-22 10:27] LABS: CALCIUM 8.4 MG/DL (8.5-10.1); CREATININE 1.2 MG/DL (0.55-1.30); POTASSIUM 4.8 MMOL/L (3.5-5.1)
--- NOTE | 2020-06-22 11:14 | Infectious Diseases Prog Note ---
Assessment/Plan Assessment/Plan antibiotics : linezolid, cefepime, fluconazole A 1. acenitobacter pneumonia s/p rx 2. + blood cultures with coag neg staph likely contaminated 3. leucocytosis 4. diabetes mellitus 5. hypertension 6. CVA 7. dementia 8. coccygeal osteomyelitis s/p debridement 9. renal failure 10. fungal UTI P 1. continue linezolid 2. continue fluconazole 3 more days 3. d/c cefepime 4. will follow up cultures Subjective ROS Limited/Unobtainable: Yes Allergies: Coded Allergies: No Known Allergies (Unverified , 05/15/20) Objective Last 24 Hour Vital Signs Date Time Temp Pulse Resp B/P (MAP) Pulse Ox O2 Delivery O2 Flow Rate FiO2 06/22/20 09:52 151/69 06/22/20 09:52 151/69 06/22/20 08:00 96.8 83 20 151/69 (96) 99 06/22/20 08:00 81 06/22/20 05:32 92 169/77 06/22/20 04:00 98.1 91 28 169/77 (107) 95 06/22/20 04:00 92 06/22/20 01:00 96 T-Piece 6.0 28 06/22/20 00:00 75 06/22/20 00:00 97.5 75 22 145/70 (95) 95 06/21/20 22:43 84 135/62 06/21/20 21:00 Trach Collar 5.0 06/21/20 20:37 96 T-Piece 6.0 28 06/21/20 20:00 97.5 84 22 135/62 (86) 96 06/21/20 20:00 83 06/21/20 18:13 137/68 06/21/20 16:00 76 06/21/20 16:00 96.4 72 22 137/68 (91) 100 06/21/20 13:40 73 132/62 06/21/20 13:00 96 T-Piece 6.0 28 06/21/20 12:12 132/62 06/21/20 12:00 73 06/21/20 11:31 97.7 77 22 132/62 (85) 98 Height (Feet): 5 Height (Inches): 3.00 Weight (Pounds): 157 HEENT: status post trach Respiratory/Chest: lungs clear Cardiovascular: normal rate, regular rhythm, no gallop/murmur Abdomen: soft, non tender, other - GT Extremities: no edema Laboratory Tests Test 06/21/20 11:41 06/21/20 17:48 06/21/20 20:03 06/22/20 00:35 POC Whole Blood Glucose 146 MG/DL (74-106) H Pending 146 MG/DL (74-106) H Pending Test 06/22/20 05:20 06/22/20 09:50 POC Whole Blood Glucose 188 MG/DL (74-106) H White Blood Count 23.7 K/UL (4.8-10.8) *H Red Blood Count 3.86 M/UL (4.20-5.40) L Hemoglobin 9.9 G/DL (12.0-16.0) L Hematocrit 30.2 % (37.0-47.0) L Mean Corpuscular Volume 78 FL (80-99) L Mean Corpuscular Hemoglobin 25.8 PG (27.0-31.0) L Mean Corpuscular Hemoglobin Concent 32.9 G/DL (32.0-36.0) Red Cell Distribution Width 16.5 % (11.6-14.8) H Platelet Count 259 K/UL (150-450) Mean Platelet Volume 7.2 FL (6.5-10.1) Neutrophils (%) (Auto) % (45.0-75.0) Lymphocytes (%) (Auto) % (20.0-45.0) Monocytes (%) (Auto) % (1.0-10.0) Eosinophils (%) (Auto) % (0.0-3.0) Basophils (%) (Auto) % (0.0-2.0) Differential Total Cells Counted 100 Neutrophils % (Manual) 92 % (45-75) H Lymphocytes % (Manual) 4 % (20-45) L Monocytes % (Manual) 3 % (1-10) Eosinophils % (Manual) 1 % (0-3) Basophils % (Manual) 0 % (0-2) Band Neutrophils 0 % (0-8) Platelet Estimate Adequate Platelet Morphology Normal Anisocytosis 1+ Sodium Level 142 MMOL/L (136-145) Potassium Level 4.8 MMOL/L (3.5-5.1) Chloride Level 108 MMOL/L (98-107) H Carbon Dioxide Level 21 MMOL/L (21-32) Anion Gap 13 mmol/L (5-15) Blood Urea Nitrogen 57 mg/dL (7-18) H Creatinine 1.2 MG/DL (0.55-1.30) Estimat Glomerular Filtration Rate 44.0 mL/min (>60) Glucose Level 175 MG/DL (74-106) H Calcium Level 8.4 MG/DL (8.5-10.1) L Current Medications Medications (Trade) Dose Ordered Sig/Cayden Route PRN Reason Start Time Stop Time Status Last Admin Dose Admin Acetaminophen (Tylenol) 650 mg Q4H PRN GT Pain 05/26/20 07:45 06/25/20 07:44 06/16/20 22:01 Apixaban (Eliquis) 5 mg BID GT 06/20/20 09:00 09/18/20 08:59 06/20/20 17:21 Ascorbic Acid (Vitamin C) 250 mg DAILY GT 05/28/20 09:00 06/27/20 08:59 06/22/20 09:52 Cefepime HCl 1 gm/ Dextrose 55 ml @ 110 mls/hr Q24H IVPB 06/15/20 09:00 06/24/20 08:59 06/22/20 09:48 Clonidine HCl (Catapres Tab) 0.1 mg Q4H PRN GT for sbp>150 06/20/20 08:15 09/01/20 08:59 06/22/20 09:52 Dextrose (Dextrose 50%) 25 ml Q30M PRN IV Hypoglycemia 05/26/20 07:30 08/24/20 07:29 Dextrose (Dextrose 50%) 50 ml Q30M PRN IV Hypoglycemia 05/26/20 07:30 08/24/20 07:29 Fluconazole (Diflucan) 100 mg DAILY GT 06/20/20 13:00 06/27/20 12:59 06/22/20 09:52 Insulin Aspart (NovoLOG) Q6HR SUBQ 05/26/20 12:00 08/24/20 11:59 06/22/20 05:33 Insulin Detemir (Levemir) 24 units EVERY 12 HOURS SUBQ 06/16/20 09:00 09/14/20 08:59 06/22/20 09:57 Isosorbide Dinitrate (Isordil) 20 mg THREE TIMES A DAY GT 06/02/20 13:00 07/02/20 12:59 06/22/20 09:52 Linezolid (Zyvox) 600 mg EVERY 12 HOURS GT 06/19/20 21:00 06/24/20 20:59 06/22/20 09:52 Metoprolol Tartrate (Lopressor) 50 mg EVERY 8 HOURS GT 05/28/20 22:00 08/26/20 21:59 06/22/20 05:32 Pantoprazole (Protonix) 40 mg DAILY IVP 05/26/20 09:00 06/25/20 08:59 06/22/20 09:48 Sodium Chloride 1,000 ml @ 50 mls/hr Q20H IV 06/20/20 01:45 07/20/20 01:44 06/21/20 22:45 Mina Salamanca MD Jun 22, 2020 11:13
[2020-06-22 12:00] VITALS: BP 152/72
--- NOTE | 2020-06-22 15:37 | Surgery Progress Note ---
Surgery Progress Note Subjective Procedure Performed Excisional debridement of sacral decubitus ulcer 10 cm x 10 cm x 4 cm deep down to bone Additional Comments no acute events Objective Last 24 Hour Vital Signs Date Time Temp Pulse Resp B/P (MAP) Pulse Ox O2 Delivery O2 Flow Rate FiO2 06/22/20 13:35 152/72 06/22/20 13:35 81 152/72 06/22/20 13:17 95 T-Piece 6.0 28 06/22/20 12:00 88 06/22/20 12:00 96.6 81 18 152/72 (98) 98 06/22/20 09:52 151/69 06/22/20 09:52 151/69 06/22/20 09:00 Trach Collar 5.0 06/22/20 08:00 96.8 83 20 151/69 (96) 99 06/22/20 08:00 81 06/22/20 07:18 94 T-Piece 6.0 28 06/22/20 05:32 92 169/77 06/22/20 04:00 98.1 91 28 169/77 (107) 95 06/22/20 04:00 92 06/22/20 01:00 96 T-Piece 6.0 28 06/22/20 00:00 75 06/22/20 00:00 97.5 75 22 145/70 (95) 95 06/21/20 22:43 84 135/62 06/21/20 21:00 Trach Collar 5.0 06/21/20 20:37 96 T-Piece 6.0 28 06/21/20 20:00 97.5 84 22 135/62 (86) 96 06/21/20 20:00 83 06/21/20 18:13 137/68 06/21/20 16:00 76 06/21/20 16:00 96.4 72 22 137/68 (91) 100 I&O Intake and Output 06/21/20 06/22/20 19:00 07:00 Intake Total 725 ml Output Total 400 ml 800 ml Balance -400 ml -75 ml IV Total 725 ml Output Urine Total 400 ml 800 ml # Voids 1 # Bowel Movements 2 3 Dressing: other Wound: other Cardiovascular: RSR Respiratory: decreased breath sounds Abdomen: soft, non-tender, present bowel sounds Extremities: no tenderness, no cyanosis Laboratory Tests Test 06/21/20 17:48 06/21/20 20:03 06/22/20 00:35 06/22/20 05:20 POC Whole Blood Glucose Pending 146 MG/DL (74-106) H Pending 188 MG/DL (74-106) H Test 06/22/20 09:50 06/22/20 12:19 White Blood Count 23.7 K/UL (4.8-10.8) *H Red Blood Count 3.86 M/UL (4.20-5.40) L Hemoglobin 9.9 G/DL (12.0-16.0) L Hematocrit 30.2 % (37.0-47.0) L Mean Corpuscular Volume 78 FL (80-99) L Mean Corpuscular Hemoglobin 25.8 PG (27.0-31.0) L Mean Corpuscular Hemoglobin Concent 32.9 G/DL (32.0-36.0) Red Cell Distribution Width 16.5 % (11.6-14.8) H Platelet Count 259 K/UL (150-450) Mean Platelet Volume 7.2 FL (6.5-10.1) Neutrophils (%) (Auto) % (45.0-75.0) Lymphocytes (%) (Auto) % (20.0-45.0) Monocytes (%) (Auto) % (1.0-10.0) Eosinophils (%) (Auto) % (0.0-3.0) Basophils (%) (Auto) % (0.0-2.0) Differential Total Cells Counted 100 Neutrophils % (Manual) 92 % (45-75) H Lymphocytes % (Manual) 4 % (20-45) L Monocytes % (Manual) 3 % (1-10) Eosinophils % (Manual) 1 % (0-3) Basophils % (Manual) 0 % (0-2) Band Neutrophils 0 % (0-8) Platelet Estimate Adequate Platelet Morphology Normal Anisocytosis 1+ Sodium Level 142 MMOL/L (136-145) Potassium Level 4.8 MMOL/L (3.5-5.1) Chloride Level 108 MMOL/L (98-107) H Carbon Dioxide Level 21 MMOL/L (21-32) Anion Gap 13 mmol/L (5-15) Blood Urea Nitrogen 57 mg/dL (7-18) H Creatinine 1.2 MG/DL (0.55-1.30) Estimat Glomerular Filtration Rate 44.0 mL/min (>60) Glucose Level 175 MG/DL (74-106) H Calcium Level 8.4 MG/DL (8.5-10.1) L POC Whole Blood Glucose Pending Assessment Post-op Diagnosis Stage IV sacral decubitus ulcer Plan Problems: (1) Anemia (2) Sepsis Assessment & Plan: 74-year-old female with medical comorbidities present with leukocytosis anemia abnormal labs hypoalbuminemia failure to thrive malnutrition worsening decubitus ulcer admitted further care and management was prior on vancomycin now on IV antibiotics admitted and under monitoring. Full evaluation does not at the bedside and evaluation performed. Trach stable PEG tube stable skin deteriorating per her turgor worsening decubitus ulcer malnutrition continue tube feeds as tolerated continue antibiotics wounds unlikely etiology of patient's sepsis we will monitor and follow with recommendations trend labs thank you for letting participate patient's care improving 06/13 acute severe leukocytosis abx changed wound improved since debridement will monitor cont abx cont dressings trend labs DAILY ESTIMATED NEEDS: Needs based on Wound, DM/ 57kg abw 25-30 kcals/kg 4130-9441 total kcals 1.25-1.8 g protein/kg 71-103 g total protein 20-25 mL/kg 9850-3091 total fluid mLs NUTRITION DIAGNOSIS: * Increased kcal/prot needs R/T wound healing as evidenced by pt admiteed w/ unstageable sacral wound, refer to full wound care eval. * Swallowing difficulty R/T dysphagia, respiratory status as evidenced by pt on T-collar, PEG dep. CURRENT TF:Glucerna 1.2 @ 50ml/hr x 24 hrs ENTERAL NUTRITION RECOMMENDATIONS: Glucerna 1.2 @ 50ml/hr x 24 hrs to provide 1200ml, 1440kcal, 72g, 966ml free water * Maintain current TF * HOB over 30 degrees/ water flush per MD ADDITIONAL RECOMMENDATIONS: * Calibrated bedscale wt -w/ added p200 mattress + pump * Wound healing: TF @ goal will provide 100% RDI Continue Vit C 250mg QD + add Endy BID via PEG * Monitor lytes closely w/ Lasix, replete as needed * Monitor BGs, rec increasing Levemir (POC glu [phone]) . (3) Elevated troponin (4) Pneumonia (5) Encounter for generalized patient complaints (6) Decubitus skin ulcer Assessment & Plan: Patient presented on admission with an Unstageable Sacral Pressure injury(L)9.8cm x (W)6.7cm. Base of wound is 80% necrotic ,20% mixed slough ,beefy red. Small amt serous exudate. Mild odor noted. Borders are macerated with surrounding maroon and indurated borders. MASD noted to Mons-pubis outer aspects of R and L buttocks. Perineum and bilat ischial tuberosities. Affected areas mentioned are erythematous, macerated with scattered satellite lesions. Non-Blanchable erythema without induration or fluctuance R and L Heels. Skin assessed under tracheal collar and no evidence of skin breakdown noted. Assessed pt and necrotic base of Sacral wound crosshatched by Md. Unstageable Sacral Pressure Injury (L)9.8cm x (W)7cm. 90% dry necrotic cap ,10% lj borders. Edges are adherent to base of wound. Periwound is pink and dry. No odor or exudate noted. Small external haemorrhoid with small amt bleeding noted. R and L heels are both blanchable. No new skin concerns noted. Wound Tx are effective and continued as ordered . All wound prevention protocols continued as care-planned. Pt has an APM/DANIEL Mattress overlay and is being positioned as per tolerance and within protocols. s/p excisional debridement of stage 4 decubitus ulcer Tx.Plan: Cleanse Sacral wound with Saline. Apply TheraHoney. Apply Moisture Barrier Paste periwound. Cover with Optifoam Drsg. Change Daily and prn. Apply Moisture Barrier Paste to Mons Pubis, Perineum and buttocks with each Incontinence care. Apply Cavilon Skin Barrier to Both heels and Malleoli. Cover each site with Optifoam Drsg. Change every 7 days and prn. Reposition at least every 2hours or as tolerated. Off-load heels with Pillow. Reposition at least every 2hours or as tolerated. APM/DANIEL mattress overlay. Adrian Gar Jun 22, 2020 15:37
[2020-06-22 16:00] VITALS: BP 142/68
--- NOTE | 2020-06-22 16:40 | Pulmonology Progress Note ---
Subjective ROS Limited/Unobtainable: Yes Constitutional: Denies: fever Allergies: Coded Allergies: No Known Allergies (Unverified , 05/15/20) Subjective care noted elevated ESR and osteo elevated wbc Objective Last 24 Hour Vital Signs Date Time Temp Pulse Resp B/P (MAP) Pulse Ox O2 Delivery O2 Flow Rate FiO2 06/22/20 13:35 152/72 06/22/20 13:35 81 152/72 06/22/20 13:17 95 T-Piece 6.0 28 06/22/20 12:00 88 06/22/20 12:00 96.6 81 18 152/72 (98) 98 06/22/20 09:52 151/69 06/22/20 09:52 151/69 06/22/20 09:00 Trach Collar 5.0 06/22/20 08:00 96.8 83 20 151/69 (96) 99 06/22/20 08:00 81 06/22/20 07:18 94 T-Piece 6.0 28 06/22/20 05:32 92 169/77 06/22/20 04:00 98.1 91 28 169/77 (107) 95 06/22/20 04:00 92 06/22/20 01:00 96 T-Piece 6.0 28 06/22/20 00:00 75 06/22/20 00:00 97.5 75 22 145/70 (95) 95 06/21/20 22:43 84 135/62 06/21/20 21:00 Trach Collar 5.0 06/21/20 20:37 96 T-Piece 6.0 28 06/21/20 20:00 97.5 84 22 135/62 (86) 96 06/21/20 20:00 83 06/21/20 18:13 137/68 Intake and Output 06/21/20 06/22/20 19:00 07:00 Intake Total 725 ml Output Total 400 ml 800 ml Balance -400 ml -75 ml IV Total 725 ml Output Urine Total 400 ml 800 ml # Voids 1 # Bowel Movements 2 3 Objective WDWN NAD trach reduced breath sounds bilaterally without rhonchi [id number] without MRG NABS nontender GT no CCE withdrawn Laboratory Tests 06/21/20 17:48: POC Whole Blood Glucose [Pending] 06/21/20 20:03: POC Whole Blood Glucose 146H 9/23/20 00:35: POC Whole Blood Glucose [Pending] 06/22/20 05:20: POC Whole Blood Glucose 188H 06/22/20 09:50: White Blood Count 23.7*H, Red Blood Count 3.86L, Hemoglobin 9.9L, Hematocrit 30.2L, Mean Corpuscular Volume 78L, Mean Corpuscular Hemoglobin 25.8L, Mean Corpuscular Hemoglobin Concent 32.9, Red Cell Distribution Width 16.5H, Platelet Count 259, Mean Platelet Volume 7.2, Neutrophils (%) (Auto) , Lymphocytes (%) (Auto) , Monocytes (%) (Auto) , Eosinophils (%) (Auto) , Basophils (%) (Auto) , Differential Total Cells Counted 100, Neutrophils % (Manual) 92H, Lymphocytes % (Manual) 4L, Monocytes % (Manual) 3, Eosinophils % (Manual) 1, Basophils % (Manual) 0, Band Neutrophils 0, Platelet Estimate Adequate, Platelet Morphology Normal, Anisocytosis 1+, Sodium Level 142, Potassium Level 4.8, Chloride Level 108H, Carbon Dioxide Level 21, Anion Gap 13, Blood Urea Nitrogen 57H, Creatinine 1.2, Estimat Glomerular Filtration Rate 44.0, Glucose Level 175H, Calcium Level 8.4L 06/22/20 12:19: POC Whole Blood Glucose [Pending] Current Medications Medications (Trade) Dose Ordered Sig/Cayden Route PRN Reason Start Time Stop Time Status Last Admin Dose Admin Acetaminophen (Tylenol) 650 mg Q4H PRN GT Pain 05/26/20 07:45 06/25/20 07:44 06/16/20 22:01 Apixaban (Eliquis) 5 mg BID GT 06/20/20 09:00 09/18/20 08:59 06/20/20 17:21 Ascorbic Acid (Vitamin C) 250 mg DAILY GT 05/28/20 09:00 06/27/20 08:59 06/22/20 09:52 Cefepime HCl 1 gm/ Dextrose 55 ml @ 110 mls/hr Q24H IVPB 06/15/20 09:00 06/24/20 08:59 06/22/20 09:48 Clonidine HCl (Catapres Tab) 0.1 mg Q4H PRN GT for sbp>150 06/20/20 08:15 09/01/20 08:59 06/22/20 09:52 Dextrose (Dextrose 50%) 25 ml Q30M PRN IV Hypoglycemia 05/26/20 07:30 08/24/20 07:29 Dextrose (Dextrose 50%) 50 ml Q30M PRN IV Hypoglycemia 05/26/20 07:30 08/24/20 07:29 Fluconazole (Diflucan) 100 mg DAILY GT 06/20/20 13:00 06/27/20 12:59 06/22/20 09:52 Insulin Aspart (NovoLOG) Q6HR SUBQ 05/26/20 12:00 08/24/20 11:59 06/22/20 12:28 Insulin Detemir (Levemir) 24 units EVERY 12 HOURS SUBQ 06/16/20 09:00 09/14/20 08:59 06/22/20 09:57 Isosorbide Dinitrate (Isordil) 20 mg THREE TIMES A DAY GT 06/02/20 13:00 07/02/20 12:59 06/22/20 13:35 Linezolid (Zyvox) 600 mg EVERY 12 HOURS GT 06/19/20 21:00 06/24/20 20:59 06/22/20 09:52 Metoprolol Tartrate (Lopressor) 50 mg EVERY 8 HOURS GT 05/28/20 22:00 08/26/20 21:59 06/22/20 13:35 Pantoprazole (Protonix) 40 mg DAILY IVP 05/26/20 09:00 06/25/20 08:59 06/22/20 09:48 Sodium Chloride 1,000 ml @ 50 mls/hr Q20H IV 06/20/20 01:45 07/20/20 01:44 06/21/20 22:45 Assessment/Plan Assessment/Plan IMPRESSION leukocytosis, worse Afib, chronic encephalopathy trach respiratory failure elevated troponin anemia bacteremia- staph fevers better hypertension osteo hematuria diabetes UTI with candiida PLAN wbc not improving complete antibiotics respiratory care snf meds suction monitor cultures eliquis resumed and monitor for bleeding card follow up ID follow up and recommendations - regarding elevated wbc impression, plan, and exam edited and reviewed in detail care discussed with Fernie Ledezma MD Jun 22, 2020 16:40
[2020-06-22 20:00] VITALS: BP 142/68
[2020-06-22] MEDS ORDERED: Tubing IV Secondary IV ONE (22:30)
[2020-06-23] VITALS: BP 144/68
--- NOTE | 2020-06-23 00:43 | Cardiology Progress Note ---
Subjective DATE OF SERVICE: Jun 22, 2020 On T-collar - still with significant peripheral leukocytosis. UA still with TNTC white and red cells; culture grew wicho and diflucan added. Continued with abnormal renal function Still with hematuria; anticoagulation on hold. BP range elevated at times, but improving Glucose trend continues to be elevated. Sputum culture A.baumanni Monitor: Sinus with PAFIb and short runs of aberrancy. CT scan: Pulmonary edema and pleural effusion Objective Last 24 Hour Vital Signs Date Time Temp Pulse Resp B/P (MAP) Pulse Ox O2 Delivery O2 Flow Rate FiO2 06/23/20 00:00 74 06/22/20 21:57 87 142/68 06/22/20 20:16 95 T-Piece 6.0 28 06/22/20 20:00 83 06/22/20 20:00 97.4 87 20 142/68 (92) 95 06/22/20 17:37 142/68 06/22/20 16:00 96 06/22/20 16:00 97.9 92 20 142/68 (92) 94 06/22/20 13:35 152/72 06/22/20 13:35 81 152/72 06/22/20 13:17 95 T-Piece 6.0 28 06/22/20 12:00 88 06/22/20 12:00 96.6 81 18 152/72 (98) 98 06/22/20 09:52 151/69 06/22/20 09:52 151/69 06/22/20 09:00 Trach Collar 5.0 06/22/20 08:00 96.8 83 20 151/69 (96) 99 06/22/20 08:00 81 06/22/20 07:18 94 T-Piece 6.0 28 06/22/20 05:32 92 169/77 06/22/20 04:00 98.1 91 28 169/77 (107) 95 06/22/20 04:00 92 06/22/20 01:00 96 T-Piece 6.0 28 ROS: no change from my assessment of 05/25/20 - remains unobtainable from patient HEENT: normal ENT inspection, Thin Trach secretions RHYTHM: NSR, PACs LUNGS: diminished breath sounds - left, bilateral rhonchi CARDIAC: normal rate, regular rhythm, normal S1 and S2, arrhythmia ABDOMEN: normal bowel sounds, non tender, soft, G-Tube intact EXTREMITIES: trace edema, other - sacral decub. noncommunicative Laboratory Tests Test 06/22/20 05:20 06/22/20 09:50 06/22/20 12:19 06/22/20 17:26 POC Whole Blood Glucose 188 MG/DL (74-106) H Pending 117 MG/DL (74-106) H White Blood Count 23.7 K/UL (4.8-10.8) *H Red Blood Count 3.86 M/UL (4.20-5.40) L Hemoglobin 9.9 G/DL (12.0-16.0) L Hematocrit 30.2 % (37.0-47.0) L Mean Corpuscular Volume 78 FL (80-99) L Mean Corpuscular Hemoglobin 25.8 PG (27.0-31.0) L Mean Corpuscular Hemoglobin Concent 32.9 G/DL (32.0-36.0) Red Cell Distribution Width 16.5 % (11.6-14.8) H Platelet Count 259 K/UL (150-450) Mean Platelet Volume 7.2 FL (6.5-10.1) Neutrophils (%) (Auto) % (45.0-75.0) Lymphocytes (%) (Auto) % (20.0-45.0) Monocytes (%) (Auto) % (1.0-10.0) Eosinophils (%) (Auto) % (0.0-3.0) Basophils (%) (Auto) % (0.0-2.0) Differential Total Cells Counted 100 Neutrophils % (Manual) 92 % (45-75) H Lymphocytes % (Manual) 4 % (20-45) L Monocytes % (Manual) 3 % (1-10) Eosinophils % (Manual) 1 % (0-3) Basophils % (Manual) 0 % (0-2) Band Neutrophils 0 % (0-8) Platelet Estimate Adequate Platelet Morphology Normal Anisocytosis 1+ Sodium Level 142 MMOL/L (136-145) Potassium Level 4.8 MMOL/L (3.5-5.1) Chloride Level 108 MMOL/L (98-107) H Carbon Dioxide Level 21 MMOL/L (21-32) Anion Gap 13 mmol/L (5-15) Blood Urea Nitrogen 57 mg/dL (7-18) H Creatinine 1.2 MG/DL (0.55-1.30) Estimat Glomerular Filtration Rate 44.0 mL/min (>60) Glucose Level 175 MG/DL (74-106) H Calcium Level 8.4 MG/DL (8.5-10.1) L Test 06/22/20 21:55 POC Whole Blood Glucose Pending Assessment/Plan Assessment/Plan Healthcare associated PNA Hospital acquired fungal cystitis with resolving hematuria Left pleural effusion Acute myocardial ischemia with possible NSTE myocardial infarction Sepsis Respiratory failure Hypertension/HHD with elev BP Parox AFib Conduction system disease with bifasc block Chr diastolic CHF Low lipid parameters NSVT IRDM with hyperglycemia still Hypomagnesemia Contaminant in positive blood cultures Osteomyelitis Acute renal faillure improved with hydration Hyperkalemia resolved Resp Rx Antibiotics per ID alarm security or surveillance monitor Continue off diuretics and ACEi; continue IVF and adjust rate. IVF Anticoagulation resumed; observe for worsening bleeding. Titrate CV regimen based on clinical parameters - continue current antianginal regimen, including beta pietro. No need for statin Titrate insulin rx - advancing levemir. Wound care Monitor hemoglobin. John Heard MD Jun 23, 2020 00:43
[2020-06-23 04:00] VITALS: BP 157/73
[2020-06-23] MEDS: NovoLOG Insulin Flexpen SUBQ SCH ×4 (06:00→18:00)
[2020-06-23 06:26] LABS: HEMATOCRIT 27.8 % (37.0-47.0); HEMOGLOBIN 9.1 G/DL (12.0-16.0); MEAN CORPUSCULAR VOLUME 79 FL (80-99); PLATELET COUNT 220 K/UL (150-450); RED BLOOD COUNT 3.53 M/UL (4.20-5.40); RED CELL DISTRIBUTION WIDTH 16.3 % (11.6-14.8); WHITE BLOOD COUNT 20.9 K/UL (4.8-10.8)
[2020-06-23] MEDS: Metoprolol Tartrate 50mg tab GT SCH ×3 (06:34→21:43)
[2020-06-23 07:04] LABS: CALCIUM 8.5 MG/DL (8.5-10.1); CREATININE 1.1 MG/DL (0.55-1.30); POTASSIUM 4.4 MMOL/L (3.5-5.1)
[2020-06-23 08:00] VITALS: BP 146/74
--- NOTE | 2020-06-23 08:09 | Consultation ---
History of Present Illness General Chief Complaint: Abnormal Labs Present Illness Allergies: Coded Allergies: No Known Allergies (Unverified , 05/15/20) Medication History Scheduled Acetaminophen 160MG/5ML* (Acetaminophen*), 20 ML ORAL DAILY, (Reported) Apixaban (Eliquis), 5 MG GT BID, (Reported) Ascorbic Acid* (Ascorbic Acid*), 500 MG GT DAILY, (Reported) Digoxin* (Digoxin*), 125 MCG GT DAILY, (Reported) Docusate Sodium* (Docusate Sodium*), 100 MG GT TWICE A DAY, (Reported) Ferrous Sulfate (Ferrous Sulfate), 7.5 ML GT DAILY, (Reported) Furosemide* (Lasix*), 40 MG GT DAILY, (Reported) Levofloxacin* (Levaquin*), 750 MG GT DAILY, (Reported) Lisinopril (Lisinopril*), 20 MG GT BID, (Reported) Metoprolol Tartrate* (Metoprolol Tartrate*), 50 MG GT EVERY 12 HOURS, (Reported) Multivitamin Liquid* (Multi-Delyn*), 15 ML GT DAILY, (Reported) Potassium Chloride* (K-Dur*), 40 MEQ GT TWICE A DAY, (Reported) Protein Supplement (Promod), 30 ML GT THREE TIMES A DAY, (Reported) Zinc Sulfate (Zinc Sulfate*), 220 MG GT DAILY, (Reported) Scheduled PRN Insulin Lispro (Insulin Lispro), 100 UNIT SQ for Sliding Scale, (Reported) Patient History Healthcare decision maker Resuscitation status Advanced Directive on File Physical Exam Last 24 Hour Vital Signs Date Time Temp Pulse Resp B/P (MAP) Pulse Ox O2 Delivery O2 Flow Rate FiO2 06/23/20 07:36 97 T-Piece 6.0 28 06/23/20 06:34 84 157/73 06/23/20 04:00 98.1 84 20 157/73 (101) 100 06/23/20 04:00 84 06/23/20 01:24 96 T-Piece 6.0 28 06/23/20 00:00 97.0 83 20 144/68 (93) 97 06/23/20 00:00 74 06/22/20 21:57 87 142/68 06/22/20 21:00 Trach Collar 5.0 06/22/20 20:16 95 T-Piece 6.0 28 06/22/20 20:00 83 9/23/20 20:00 97.4 87 20 142/68 (92) 95 06/22/20 17:37 142/68 06/22/20 16:00 96 06/22/20 16:00 97.9 92 20 142/68 (92) 94 06/22/20 13:35 152/72 06/22/20 13:35 81 152/72 06/22/20 13:17 95 T-Piece 6.0 28 06/22/20 12:00 88 06/22/20 12:00 96.6 81 18 152/72 (98) 98 06/22/20 09:52 151/69 06/22/20 09:52 151/69 06/22/20 09:00 Trach Collar 5.0 Intake and Output 06/22/20 06/23/20 19:00 07:00 Output Total 800 ml 800 ml Balance -800 ml -800 ml Output Urine Total 800 ml 800 ml # Bowel Movements 3 2 Laboratory Tests Test 06/22/20 09:50 06/22/20 12:19 06/22/20 17:26 06/22/20 21:55 White Blood Count 23.7 K/UL (4.8-10.8) *H Red Blood Count 3.86 M/UL (4.20-5.40) L Hemoglobin 9.9 G/DL (12.0-16.0) L Hematocrit 30.2 % (37.0-47.0) L Mean Corpuscular Volume 78 FL (80-99) L Mean Corpuscular Hemoglobin 25.8 PG (27.0-31.0) L Mean Corpuscular Hemoglobin Concent 32.9 G/DL (32.0-36.0) Red Cell Distribution Width 16.5 % (11.6-14.8) H Platelet Count 259 K/UL (150-450) Mean Platelet Volume 7.2 FL (6.5-10.1) Neutrophils (%) (Auto) % (45.0-75.0) Lymphocytes (%) (Auto) % (20.0-45.0) Monocytes (%) (Auto) % (1.0-10.0) Eosinophils (%) (Auto) % (0.0-3.0) Basophils (%) (Auto) % (0.0-2.0) Differential Total Cells Counted 100 Neutrophils % (Manual) 92 % (45-75) H Lymphocytes % (Manual) 4 % (20-45) L Monocytes % (Manual) 3 % (1-10) Eosinophils % (Manual) 1 % (0-3) Basophils % (Manual) 0 % (0-2) Band Neutrophils 0 % (0-8) Platelet Estimate Adequate Platelet Morphology Normal Anisocytosis 1+ Sodium Level 142 MMOL/L (136-145) Potassium Level 4.8 MMOL/L (3.5-5.1) Chloride Level 108 MMOL/L (98-107) H Carbon Dioxide Level 21 MMOL/L (21-32) Anion Gap 13 mmol/L (5-15) Blood Urea Nitrogen 57 mg/dL (7-18) H Creatinine 1.2 MG/DL (0.55-1.30) Estimat Glomerular Filtration Rate 44.0 mL/min (>60) Glucose Level 175 MG/DL (74-106) H Calcium Level 8.4 MG/DL (8.5-10.1) L POC Whole Blood Glucose Pending 117 MG/DL (74-106) H Pending Test 06/23/20 00:48 06/23/20 05:12 06/23/20 06:39 POC Whole Blood Glucose 119 MG/DL (74-106) H 133 MG/DL (74-106) H White Blood Count 20.9 K/UL (4.8-10.8) H Red Blood Count 3.53 M/UL (4.20-5.40) L Hemoglobin 9.1 G/DL (12.0-16.0) L Hematocrit 27.8 % (37.0-47.0) L Mean Corpuscular Volume 79 FL (80-99) L Mean Corpuscular Hemoglobin 25.8 PG (27.0-31.0) L Mean Corpuscular Hemoglobin Concent 32.7 G/DL (32.0-36.0) Red Cell Distribution Width 16.3 % (11.6-14.8) H Platelet Count 220 K/UL (150-450) Mean Platelet Volume 6.8 FL (6.5-10.1) Neutrophils (%) (Auto) % (45.0-75.0) Lymphocytes (%) (Auto) % (20.0-45.0) Monocytes (%) (Auto) % (1.0-10.0) Eosinophils (%) (Auto) % (0.0-3.0) Basophils (%) (Auto) % (0.0-2.0) Neutrophils % (Manual) Pending Lymphocytes % (Manual) Pending Platelet Estimate Pending Platelet Morphology Pending Sodium Level 142 MMOL/L (136-145) Potassium Level 4.4 MMOL/L (3.5-5.1) Chloride Level 107 MMOL/L (98-107) Carbon Dioxide Level 23 MMOL/L (21-32) Anion Gap 12 mmol/L (5-15) Blood Urea Nitrogen 52 mg/dL (7-18) H Creatinine 1.1 MG/DL (0.55-1.30) Estimat Glomerular Filtration Rate 48.7 mL/min (>60) Glucose Level 138 MG/DL (74-106) H Calcium Level 8.5 MG/DL (8.5-10.1) Magnesium Level 1.5 MG/DL (1.8-2.4) L Height (Feet): 5 Height (Inches): 3.00 Weight (Pounds): 157 Medications Current Medications Medications (Trade) Dose Ordered Sig/Cayden Route PRN Reason Start Time Stop Time Status Last Admin Dose Admin Acetaminophen (Tylenol) 650 mg Q4H PRN GT Pain 05/26/20 07:45 06/25/20 07:44 06/16/20 22:01 Apixaban (Eliquis) 5 mg BID GT 06/20/20 09:00 09/18/20 08:59 06/20/20 17:21 Ascorbic Acid (Vitamin C) 250 mg DAILY GT 05/28/20 09:00 06/27/20 08:59 06/22/20 09:52 Cefepime HCl 1 gm/ Dextrose 55 ml @ 110 mls/hr Q24H IVPB 06/15/20 09:00 06/24/20 08:59 06/22/20 09:48 Clonidine HCl (Catapres Tab) 0.1 mg Q4H PRN GT for sbp>150 06/20/20 08:15 09/01/20 08:59 06/22/20 09:52 Dextrose (Dextrose 50%) 25 ml Q30M PRN IV Hypoglycemia 05/26/20 07:30 08/24/20 07:29 Dextrose (Dextrose 50%) 50 ml Q30M PRN IV Hypoglycemia 05/26/20 07:30 08/24/20 07:29 Fluconazole (Diflucan) 100 mg DAILY GT 06/20/20 13:00 06/27/20 12:59 06/22/20 09:52 Insulin Aspart (NovoLOG) Q6HR SUBQ 05/26/20 12:00 08/24/20 11:59 06/22/20 12:28 Insulin Detemir (Levemir) 24 units EVERY 12 HOURS SUBQ 06/16/20 09:00 09/14/20 08:59 06/22/20 09:57 Isosorbide Dinitrate (Isordil) 20 mg THREE TIMES A DAY GT 06/02/20 13:00 07/02/20 12:59 06/22/20 17:37 Linezolid (Zyvox) 600 mg EVERY 12 HOURS GT 06/19/20 21:00 06/24/20 20:59 06/22/20 21:57 Metoprolol Tartrate (Lopressor) 50 mg EVERY 8 HOURS GT 05/28/20 22:00 08/26/20 21:59 06/23/20 06:34 Pantoprazole (Protonix) 40 mg DAILY IVP 05/26/20 09:00 06/25/20 08:59 06/22/20 09:48 Sodium Chloride 1,000 ml @ 50 mls/hr Q20H IV 06/20/20 01:45 07/20/20 01:44 06/23/20 00:45 Assessment/Plan Assessment/Plan: Hematology Consultation ALLISON MILLIGAN: Fernie Martinez RFC: Peripheral leukocytosis eval DOS: 06/23/2020 HPI 74y old danis godinez, This patient presents from a [place] [facility]. She has a history of respiratory failure and has a tracheostomy and is on a T-piece. She also has a G-tube. She is recently hospitalized for septic shock and A. fib with rapid ventricular response. She is currently receiving meropenem for ongoing treatment for the pneumonia. She presents from a [place] [facility] for concern of increasing white blood cell count on routine labs. She is also getting vancomycin. The patient has many chronic medical problems to include A. fib, respiratory failure, CVA, diabetes, aphasia, hemiplegia, coronary artery disease, congestive heart failure to name a few. The patient is nonverbal at baseline and is unable to give any type of history. History is obtained from EMS and the medical record. Reviewed her admission here and recs from consultants. Allergies: No Known Allergies (Unverified , 05/15/20) COVID-19 Screening Contact w/high risk pt: No Experienced COVID-19 symptoms?: No COVID-19 Testing performed TECHNOLOGY METHODOLOGY CONSULTANT: No Patient History Past Medical History: see triage record, old chart reviewed, DM, HTN, AK, CAD, CHF, AFib, pneumonia, CVA/TIA Past Surgical History: other - Trach, G-tube Social History: Denies: smoking, alcohol use, drug use Last Menstrual Period: NA Now: No Reviewed Nursing Documentation: PMH: Agreed; PSxH: Agreed Nursing Documentation-PMH Past Medical History: No History, Except For Hx Diabetes: Yes - TYPE 1 Hx Cancer: No Hx Gastrointestinal Problems: Yes - GT feeding Hx Neurological Problems: Yes Hx Cerebrovascular Accident: Yes Hx Paralysis: Yes Hx Weakness: Yes Review of Systems difficult to obtain given mental status GEN: nad, nv HEENT: normal ENT inspection, Thin Trach++ RHYTHM: NSR, PACs LUNGS: diminished breath sounds - left, bilateral rhonchi CARDIAC: normal rate, regular rhythm, normal S1 and S2, arrhythmia ABDOMEN: normal bowel sounds, non tender, soft, G-Tube intact++ EXTREMITIES: trace edema, other - sacral decub. noncommunicative Labs: reviewed Imaging: noted Assessment and Recs # Leukocytosis, peripherally -- may be multiple causes, metamyelocytes and myelocytes noted on automatic cbc analyzer --> FIRSt, begin with peripheral smear, ordered --> after send for flow coytometry, r/o leukemia v other processes --> inflammatory markers elevated, may be a cause # Anemia of chronic disease due to underlying chronic medical issues, multifactorial v Gi bleed --> Anemia workup has been ordered, rule out gi bleed --> No evidence of hemolysis is noted, peripheral smear has been reviewed. --> Hgb goal >7. Transfuse prn. --> Epogen or iron at this time is not particularly indicated --> Medications have been reviewed --> low threshold for gi evaluation in case has occult + --> hgb 9 # Sepsis with pna --> ABX fluc, linezolid, cefepime # PNA --> imaging per id, pulm # Elevated troponin --> cards aware # Dvt ppx scds Appreciate consultation and continue to follow Edwin Mendoza MD Jun 23, 2020 08:09
--- NOTE | 2020-06-23 09:05 | Pulmonology Progress Note ---
Subjective ROS Limited/Unobtainable: Yes Constitutional: Denies: fever Allergies: Coded Allergies: No Known Allergies (Unverified , 05/15/20) Subjective care noted sl improvement in wbc heme called Objective Last 24 Hour Vital Signs Date Time Temp Pulse Resp B/P (MAP) Pulse Ox O2 Delivery O2 Flow Rate FiO2 06/23/20 08:00 97.9 77 20 146/74 (98) 100 06/23/20 07:36 97 T-Piece 6.0 28 06/23/20 06:34 84 157/73 06/23/20 04:00 98.1 84 20 157/73 (101) 100 06/23/20 04:00 84 06/23/20 01:24 96 T-Piece 6.0 28 06/23/20 00:00 97.0 83 20 144/68 (93) 97 06/23/20 00:00 74 06/22/20 21:57 87 142/68 06/22/20 21:00 Trach Collar 5.0 06/22/20 20:16 95 T-Piece 6.0 28 06/22/20 20:00 83 06/22/20 20:00 97.4 87 20 142/68 (92) 95 06/22/20 17:37 142/68 06/22/20 16:00 96 06/22/20 16:00 97.9 92 20 142/68 (92) 94 06/22/20 13:35 152/72 06/22/20 13:35 81 152/72 06/22/20 13:17 95 T-Piece 6.0 28 06/22/20 12:00 88 06/22/20 12:00 96.6 81 18 152/72 (98) 98 06/22/20 09:52 151/69 06/22/20 09:52 151/69 Intake and Output 06/22/20 06/23/20 19:00 07:00 Output Total 800 ml 800 ml Balance -800 ml -800 ml Output Urine Total 800 ml 800 ml # Bowel Movements 3 2 Objective WDWN NAD trach reduced breath sounds bilaterally without rhonchi [id number] without MRG NABS nontender GT no CCE withdrawn Laboratory Tests 06/22/20 09:50: White Blood Count 23.7*H, Red Blood Count 3.86L, Hemoglobin 9.9L, Hematocrit 30.2L, Mean Corpuscular Volume 78L, Mean Corpuscular Hemoglobin 25.8L, Mean Corpuscular Hemoglobin Concent 32.9, Red Cell Distribution Width 16.5H, Platelet Count 259, Mean Platelet Volume 7.2, Neutrophils (%) (Auto) , Lymphocytes (%) (Auto) , Monocytes (%) (Auto) , Eosinophils (%) (Auto) , Basophils (%) (Auto) , Differential Total Cells Counted 100, Neutrophils % (Manual) 92H, Lymphocytes % (Manual) 4L, Monocytes % (Manual) 3, Eosinophils % (Manual) 1, Basophils % (Manual) 0, Band Neutrophils 0, Platelet Estimate Adequate, Platelet Morphology Normal, Anisocytosis 1+, Sodium Level 142, Potassium Level 4.8, Chloride Level 108H, Carbon Dioxide Level 21, Anion Gap 13, Blood Urea Nitrogen 57H, Creatinine 1.2, Estimat Glomerular Filtration Rate 44.0, Glucose Level 175H, Calcium Level 8.4L 06/22/20 12:19: POC Whole Blood Glucose [Pending] 06/22/20 17:26: POC Whole Blood Glucose 117H 06/22/20 21:55: POC Whole Blood Glucose [Pending] 06/23/20 00:48: POC Whole Blood Glucose 119H 06/23/20 05:12: White Blood Count 20.9H, Red Blood Count 3.53L, Hemoglobin 9.1L, Hematocrit 27.8L, Mean Corpuscular Volume 79L, Mean Corpuscular Hemoglobin 25.8L, Mean Corpuscular Hemoglobin Concent 32.7, Red Cell Distribution Width 16.3H, Platelet Count 220, Mean Platelet Volume 6.8, Neutrophils (%) (Auto) , Lymphocytes (%) (Auto) , Monocytes (%) (Auto) , Eosinophils (%) (Auto) , Basophils (%) (Auto) , Differential Total Cells Counted 100, Neutrophils % (Manual) 92H, Lymphocytes % (Manual) 6L, Monocytes % (Manual) 1, Eosinophils % (Manual) 1, Basophils % (Manual) 0, Band Neutrophils 0, Platelet Estimate Adequate, Platelet Morphology Normal, Hypochromasia 1+, Anisocytosis 1+, Microcytosis 1+, Sodium Level 142, Potassium Level 4.4, Chloride Level 107, Carbon Dioxide Level 23, Anion Gap 12, Blood Urea Nitrogen 52H, Creatinine 1.1, Estimat Glomerular Filtration Rate 48.7, Glucose Level 138H, Calcium Level 8.5, Magnesium Level 1.5L 06/23/20 06:39: POC Whole Blood Glucose 133H Current Medications Medications (Trade) Dose Ordered Sig/Cayden Route PRN Reason Start Time Stop Time Status Last Admin Dose Admin Acetaminophen (Tylenol) 650 mg Q4H PRN GT Pain 05/26/20 07:45 06/25/20 07:44 06/16/20 22:01 Apixaban (Eliquis) 5 mg BID GT 06/20/20 09:00 09/18/20 08:59 06/20/20 17:21 Ascorbic Acid (Vitamin C) 250 mg DAILY GT 05/28/20 09:00 06/27/20 08:59 06/22/20 09:52 Cefepime HCl 1 gm/ Dextrose 55 ml @ 110 mls/hr Q24H IVPB 06/15/20 09:00 06/24/20 08:59 06/22/20 09:48 Clonidine HCl (Catapres Tab) 0.1 mg Q4H PRN GT for sbp>150 06/20/20 08:15 09/01/20 08:59 06/22/20 09:52 Dextrose (Dextrose 50%) 25 ml Q30M PRN IV Hypoglycemia 05/26/20 07:30 08/24/20 07:29 Dextrose (Dextrose 50%) 50 ml Q30M PRN IV Hypoglycemia 05/26/20 07:30 08/24/20 07:29 Fluconazole (Diflucan) 100 mg DAILY GT 06/20/20 13:00 06/27/20 12:59 06/22/20 09:52 Insulin Aspart (NovoLOG) Q6HR SUBQ 05/26/20 12:00 08/24/20 11:59 06/22/20 12:28 Insulin Detemir (Levemir) 24 units EVERY 12 HOURS SUBQ 06/16/20 09:00 09/14/20 08:59 06/22/20 09:57 Isosorbide Dinitrate (Isordil) 20 mg THREE TIMES A DAY GT 06/02/20 13:00 07/02/20 12:59 06/22/20 17:37 Linezolid (Zyvox) 600 mg EVERY 12 HOURS GT 06/19/20 21:00 06/24/20 20:59 06/22/20 21:57 Metoprolol Tartrate (Lopressor) 50 mg EVERY 8 HOURS GT 05/28/20 22:00 08/26/20 21:59 06/23/20 06:34 Pantoprazole (Protonix) 40 mg DAILY IVP 05/26/20 09:00 06/25/20 08:59 06/22/20 09:48 Sodium Chloride 1,000 ml @ 50 mls/hr Q20H IV 06/20/20 01:45 07/20/20 01:44 06/23/20 00:45 Assessment/Plan Assessment/Plan IMPRESSION leukocytosis, worse Afib, chronic encephalopathy trach respiratory failure elevated troponin anemia bacteremia- staph fevers better hypertension osteo hematuria diabetes UTI with candiida PLAN wbc slightly better heme eval respiratory care snf meds suction monitor cultures eliquis ID follow up and recommendations - regarding elevated wbc impression, plan, and exam edited and reviewed in detail care discussed with Fernie Ledezma MD Jun 23, 2020 09:05
[2020-06-23] MEDS: Fluconazole 100mg tab GT SCH (09:40)
[2020-06-23] MEDS: Ascorbic Acid 500mg tab GT SCH (09:41)
[2020-06-23] MEDS: Eliquis 5mg tablet GT SCH ×2 (09:41→18:25)
[2020-06-23] MEDS: Pantoprazole Inj IVP SCH (09:42)
[2020-06-23] MEDS: Cefepime 1gm in D5W 55ml IVPB SCH (09:43)
[2020-06-23] MEDS: Levemir Flexpen SUBQ SCH ×2 (10:39→21:00)
[2020-06-23 12:00] VITALS: BP 150/69
--- NOTE | 2020-06-23 12:35 | Infectious Diseases Prog Note ---
Assessment/Plan Assessment/Plan A: 1. sepsis. 2. Acinetobacter pneumonia treated 3. Leukocytosis improving 4. Diabetes. 5. Hypertension. 6. CVA. 7. Dementia. 8. COVID-19 test was negative. 9. 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 Hematuria 13. Candidal UTI PLAN: 1. Continue Zyvox 2. Wound care 3. Continue Fluconazole Subjective ROS Limited/Unobtainable: Yes Constitutional: Denies: fever Allergies: Coded Allergies: No Known Allergies (Unverified , 05/15/20) Objective Last 24 Hour Vital Signs Date Time Temp Pulse Resp B/P (MAP) Pulse Ox O2 Delivery O2 Flow Rate FiO2 06/23/20 09:42 146/74 06/23/20 08:00 77 06/23/20 08:00 97.9 77 20 146/74 (98) 100 06/23/20 07:36 97 T-Piece 6.0 28 06/23/20 06:34 84 157/73 06/23/20 04:00 98.1 84 20 157/73 (101) 100 06/23/20 04:00 84 06/23/20 01:24 96 T-Piece 6.0 28 06/23/20 00:00 97.0 83 20 144/68 (93) 97 06/23/20 00:00 74 06/22/20 21:57 87 142/68 06/22/20 21:00 Trach Collar 5.0 06/22/20 20:16 95 T-Piece 6.0 28 06/22/20 20:00 83 06/22/20 20:00 97.4 87 20 142/68 (92) 95 06/22/20 17:37 142/68 06/22/20 16:00 96 06/22/20 16:00 97.9 92 20 142/68 (92) 94 06/22/20 13:35 152/72 06/22/20 13:35 81 152/72 06/22/20 13:17 95 T-Piece 6.0 28 Height (Feet): 5 Height (Inches): 3.00 Weight (Pounds): 157 HEENT: status post trach Respiratory/Chest: lungs clear, other - on T bar Cardiovascular: normal rate Abdomen: soft, non tender, other - GT feeding Extremities: other - Generalized edema Skin: ulcers Neurologic/Psychiatric: unresponsiveness, aphasia Laboratory Tests Test 06/22/20 17:26 06/22/20 21:55 06/23/20 00:48 06/23/20 05:12 POC Whole Blood Glucose 117 MG/DL (74-106) H Pending 119 MG/DL (74-106) H White Blood Count 20.9 K/UL (4.8-10.8) H Red Blood Count 3.53 M/UL (4.20-5.40) L Hemoglobin 9.1 G/DL (12.0-16.0) L Hematocrit 27.8 % (37.0-47.0) L Mean Corpuscular Volume 79 FL (80-99) L Mean Corpuscular Hemoglobin 25.8 PG (27.0-31.0) L Mean Corpuscular Hemoglobin Concent 32.7 G/DL (32.0-36.0) Red Cell Distribution Width 16.3 % (11.6-14.8) H Platelet Count 220 K/UL (150-450) Mean Platelet Volume 6.8 FL (6.5-10.1) Neutrophils (%) (Auto) % (45.0-75.0) Lymphocytes (%) (Auto) % (20.0-45.0) Monocytes (%) (Auto) % (1.0-10.0) Eosinophils (%) (Auto) % (0.0-3.0) Basophils (%) (Auto) % (0.0-2.0) Differential Total Cells Counted 100 Neutrophils % (Manual) 92 % (45-75) H Lymphocytes % (Manual) 6 % (20-45) L Monocytes % (Manual) 1 % (1-10) Eosinophils % (Manual) 1 % (0-3) Basophils % (Manual) 0 % (0-2) Band Neutrophils 0 % (0-8) Platelet Estimate Adequate Platelet Morphology Normal Hypochromasia 1+ Anisocytosis 1+ Microcytosis 1+ Sodium Level 142 MMOL/L (136-145) Potassium Level 4.4 MMOL/L (3.5-5.1) Chloride Level 107 MMOL/L (98-107) Carbon Dioxide Level 23 MMOL/L (21-32) Anion Gap 12 mmol/L (5-15) Blood Urea Nitrogen 52 mg/dL (7-18) H Creatinine 1.1 MG/DL (0.55-1.30) Estimat Glomerular Filtration Rate 48.7 mL/min (>60) Glucose Level 138 MG/DL (74-106) H Calcium Level 8.5 MG/DL (8.5-10.1) Magnesium Level 1.5 MG/DL (1.8-2.4) L Test 06/23/20 06:39 POC Whole Blood Glucose 133 MG/DL (74-106) H Current Medications Medications (Trade) Dose Ordered Sig/Cayden Route PRN Reason Start Time Stop Time Status Last Admin Dose Admin Acetaminophen (Tylenol) 650 mg Q4H PRN GT Pain 05/26/20 07:45 06/25/20 07:44 06/16/20 22:01 Apixaban (Eliquis) 5 mg BID GT 06/20/20 09:00 09/18/20 08:59 06/23/20 09:41 Ascorbic Acid (Vitamin C) 250 mg DAILY GT 05/28/20 09:00 06/27/20 08:59 06/23/20 09:41 Cefepime HCl 1 gm/ Dextrose 55 ml @ 110 mls/hr Q24H IVPB 06/15/20 09:00 06/24/20 08:59 06/22/20 09:48 Clonidine HCl (Catapres Tab) 0.1 mg Q4H PRN GT for sbp>150 06/20/20 08:15 09/01/20 08:59 06/22/20 09:52 Dextrose (Dextrose 50%) 25 ml Q30M PRN IV Hypoglycemia 05/26/20 07:30 08/24/20 07:29 Dextrose (Dextrose 50%) 50 ml Q30M PRN IV Hypoglycemia 05/26/20 07:30 08/24/20 07:29 Fluconazole (Diflucan) 100 mg DAILY GT 06/20/20 13:00 06/27/20 12:59 06/23/20 09:40 Insulin Aspart (NovoLOG) Q6HR SUBQ 05/26/20 12:00 08/24/20 11:59 06/22/20 12:28 Insulin Detemir (Levemir) 24 units EVERY 12 HOURS SUBQ 06/16/20 09:00 09/14/20 08:59 06/23/20 10:39 Isosorbide Dinitrate (Isordil) 20 mg THREE TIMES A DAY GT 06/02/20 13:00 07/02/20 12:59 06/23/20 09:42 Linezolid (Zyvox) 600 mg EVERY 12 HOURS GT 06/19/20 21:00 06/24/20 20:59 06/23/20 09:42 Magnesium Sulfate 100 ml @ 100 mls/hr Q1H IVPB 06/23/20 11:15 06/23/20 13:14 Magnesium Sulfate 100 ml @ 100 mls/hr Q1H IVPB 06/24/20 09:00 06/24/20 10:59 Metoprolol Tartrate (Lopressor) 50 mg EVERY 8 HOURS GT 05/28/20 22:00 08/26/20 21:59 06/23/20 06:34 Pantoprazole (Protonix) 40 mg DAILY IVP 05/26/20 09:00 06/25/20 08:59 06/22/20 09:48 Sodium Chloride 1,000 ml @ 50 mls/hr Q20H IV 06/20/20 01:45 07/20/20 01:44 06/23/20 00:45 Colby Rock MD Jun 23, 2020 12:35
--- NOTE | 2020-06-23 13:07 | Cardiology Progress Note ---
Subjective DATE OF SERVICE: Jun 23, 2020 On T-collar - still with significant peripheral leukocytosis and worsening congestion. UA still with TNTC white and red cells; culture grew wicho and diflucan added. Continued with abnormal renal function Still with hematuria; anticoagulation on hold. BP range elevated at times, but improving Glucose trend continues to be elevated. Sputum culture A.baumanni Monitor: Sinus with PAFIb and short runs of aberrancy. CT scan: Pulmonary edema and pleural effusion Objective Last 24 Hour Vital Signs Date Time Temp Pulse Resp B/P (MAP) Pulse Ox O2 Delivery O2 Flow Rate FiO2 06/23/20 12:00 87 06/23/20 12:00 97.9 88 22 150/69 (96) 96 06/23/20 09:42 146/74 06/23/20 08:00 77 06/23/20 08:00 97.9 77 20 146/74 (98) 100 06/23/20 07:36 97 T-Piece 6.0 28 06/23/20 06:34 84 157/73 06/23/20 04:00 98.1 84 20 157/73 (101) 100 06/23/20 04:00 84 06/23/20 01:24 96 T-Piece 6.0 28 06/23/20 00:00 97.0 83 20 144/68 (93) 97 06/23/20 00:00 74 06/22/20 21:57 87 142/68 06/22/20 21:00 Trach Collar 5.0 06/22/20 20:16 95 T-Piece 6.0 28 06/22/20 20:00 83 06/22/20 20:00 97.4 87 20 142/68 (92) 95 06/22/20 17:37 142/68 06/22/20 16:00 96 06/22/20 16:00 97.9 92 20 142/68 (92) 94 06/22/20 13:35 152/72 06/22/20 13:35 81 152/72 06/22/20 13:17 95 T-Piece 6.0 28 ROS: no change from my assessment of 05/25/20 - remains unobtainable from patient HEENT: normal ENT inspection, Thin Trach secretions RHYTHM: NSR, PACs LUNGS: diminished breath sounds - left, bilateral rhonchi CARDIAC: normal rate, regular rhythm, normal S1 and S2, arrhythmia ABDOMEN: normal bowel sounds, non tender, soft, G-Tube intact EXTREMITIES: trace edema, +2 edema - extremities, other - sacral decub. noncommunicative Laboratory Tests Test 06/22/20 17:26 06/22/20 21:55 06/23/20 00:48 06/23/20 05:12 POC Whole Blood Glucose 117 MG/DL (74-106) H Pending 119 MG/DL (74-106) H White Blood Count 20.9 K/UL (4.8-10.8) H Red Blood Count 3.53 M/UL (4.20-5.40) L Hemoglobin 9.1 G/DL (12.0-16.0) L Hematocrit 27.8 % (37.0-47.0) L Mean Corpuscular Volume 79 FL (80-99) L Mean Corpuscular Hemoglobin 25.8 PG (27.0-31.0) L Mean Corpuscular Hemoglobin Concent 32.7 G/DL (32.0-36.0) Red Cell Distribution Width 16.3 % (11.6-14.8) H Platelet Count 220 K/UL (150-450) Mean Platelet Volume 6.8 FL (6.5-10.1) Neutrophils (%) (Auto) % (45.0-75.0) Lymphocytes (%) (Auto) % (20.0-45.0) Monocytes (%) (Auto) % (1.0-10.0) Eosinophils (%) (Auto) % (0.0-3.0) Basophils (%) (Auto) % (0.0-2.0) Differential Total Cells Counted 100 Neutrophils % (Manual) 92 % (45-75) H Lymphocytes % (Manual) 6 % (20-45) L Monocytes % (Manual) 1 % (1-10) Eosinophils % (Manual) 1 % (0-3) Basophils % (Manual) 0 % (0-2) Band Neutrophils 0 % (0-8) Platelet Estimate Adequate Platelet Morphology Normal Hypochromasia 1+ Anisocytosis 1+ Microcytosis 1+ Sodium Level 142 MMOL/L (136-145) Potassium Level 4.4 MMOL/L (3.5-5.1) Chloride Level 107 MMOL/L (98-107) Carbon Dioxide Level 23 MMOL/L (21-32) Anion Gap 12 mmol/L (5-15) Blood Urea Nitrogen 52 mg/dL (7-18) H Creatinine 1.1 MG/DL (0.55-1.30) Estimat Glomerular Filtration Rate 48.7 mL/min (>60) Glucose Level 138 MG/DL (74-106) H Calcium Level 8.5 MG/DL (8.5-10.1) Magnesium Level 1.5 MG/DL (1.8-2.4) L Test 06/23/20 06:39 POC Whole Blood Glucose 133 MG/DL (74-106) H Assessment/Plan Assessment/Plan [facility] acquired fungal cystitis with resolving hematuria Left pleural effusion Acute myocardial ischemia with possible NSTE myocardial infarction Sepsis Respiratory failure Hypertension/HHD with elev BP Parox AFib 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 Titrate CV regimen based on clinical parameters - continue current antianginal regimen, including beta pietro. No need for statin Titrate insulin rx - advancing levemir as needed Wound care Monitor hemoglobin. REMAINS HIGH RISK John Heard MD Jun 23, 2020 13:07
--- NOTE | 2020-06-23 13:30 | Surgery Progress Note ---
Surgery Progress Note Subjective Procedure Performed Excisional debridement of sacral decubitus ulcer 10 cm x 10 cm x 4 cm deep down to bone Additional Comments persistent leukocytosis wound stable pending heme eval Objective Last 24 Hour Vital Signs Date Time Temp Pulse Resp B/P (MAP) Pulse Ox O2 Delivery O2 Flow Rate FiO2 06/23/20 12:00 87 06/23/20 12:00 97.9 88 22 150/69 (96) 96 06/23/20 09:42 146/74 06/23/20 09:00 Trach Collar 5.0 06/23/20 08:00 77 06/23/20 08:00 97.9 77 20 146/74 (98) 100 06/23/20 07:36 97 T-Piece 6.0 28 06/23/20 06:34 84 157/73 06/23/20 04:00 98.1 84 20 157/73 (101) 100 06/23/20 04:00 84 06/23/20 01:24 96 T-Piece 6.0 28 06/23/20 00:00 97.0 83 20 144/68 (93) 97 06/23/20 00:00 74 06/22/20 21:57 87 142/68 06/22/20 21:00 Trach Collar 5.0 06/22/20 20:16 95 T-Piece 6.0 28 06/22/20 20:00 83 06/22/20 20:00 97.4 87 20 142/68 (92) 95 06/22/20 17:37 142/68 06/22/20 16:00 96 06/22/20 16:00 97.9 92 20 142/68 (92) 94 06/22/20 13:35 152/72 06/22/20 13:35 81 152/72 I&O Intake and Output 06/22/20 06/23/20 19:00 07:00 Output Total 800 ml 800 ml Balance -800 ml -800 ml Output Urine Total 800 ml 800 ml # Bowel Movements 3 2 Dressing: other Wound: other Cardiovascular: RSR Respiratory: decreased breath sounds Abdomen: soft, present bowel sounds Extremities: no cyanosis Laboratory Tests Test 06/22/20 17:26 06/22/20 21:55 06/23/20 00:48 06/23/20 05:12 POC Whole Blood Glucose 117 MG/DL (74-106) H Pending 119 MG/DL (74-106) H White Blood Count 20.9 K/UL (4.8-10.8) H Red Blood Count 3.53 M/UL (4.20-5.40) L Hemoglobin 9.1 G/DL (12.0-16.0) L Hematocrit 27.8 % (37.0-47.0) L Mean Corpuscular Volume 79 FL (80-99) L Mean Corpuscular Hemoglobin 25.8 PG (27.0-31.0) L Mean Corpuscular Hemoglobin Concent 32.7 G/DL (32.0-36.0) Red Cell Distribution Width 16.3 % (11.6-14.8) H Platelet Count 220 K/UL (150-450) Mean Platelet Volume 6.8 FL (6.5-10.1) Neutrophils (%) (Auto) % (45.0-75.0) Lymphocytes (%) (Auto) % (20.0-45.0) Monocytes (%) (Auto) % (1.0-10.0) Eosinophils (%) (Auto) % (0.0-3.0) Basophils (%) (Auto) % (0.0-2.0) Differential Total Cells Counted 100 Neutrophils % (Manual) 92 % (45-75) H Lymphocytes % (Manual) 6 % (20-45) L Monocytes % (Manual) 1 % (1-10) Eosinophils % (Manual) 1 % (0-3) Basophils % (Manual) 0 % (0-2) Band Neutrophils 0 % (0-8) Platelet Estimate Adequate Platelet Morphology Normal Hypochromasia 1+ Anisocytosis 1+ Microcytosis 1+ Sodium Level 142 MMOL/L (136-145) Potassium Level 4.4 MMOL/L (3.5-5.1) Chloride Level 107 MMOL/L (98-107) Carbon Dioxide Level 23 MMOL/L (21-32) Anion Gap 12 mmol/L (5-15) Blood Urea Nitrogen 52 mg/dL (7-18) H Creatinine 1.1 MG/DL (0.55-1.30) Estimat Glomerular Filtration Rate 48.7 mL/min (>60) Glucose Level 138 MG/DL (74-106) H Calcium Level 8.5 MG/DL (8.5-10.1) Magnesium Level 1.5 MG/DL (1.8-2.4) L Test 06/23/20 06:39 POC Whole Blood Glucose 133 MG/DL (74-106) H Assessment Post-op Diagnosis Stage IV sacral decubitus ulcer Plan Problems: (1) Anemia (2) Sepsis Assessment & Plan: 74-year-old female with medical comorbidities present with leukocytosis anemia abnormal labs hypoalbuminemia failure to thrive malnutrition worsening decubitus ulcer admitted further care and management was prior on vancomycin now on IV antibiotics admitted and under monitoring. Full evaluation does not at the bedside and evaluation performed. Trach stable PEG tube stable skin deteriorating per her turgor worsening decubitus ulcer malnutrition cont inue tube feeds as tolerated continue antibiotics wounds unlikely etiology of patient's sepsis we will monitor and follow with recommendations trend labs thank you for letting participate patient's care improving 06/13 acute severe leukocytosis abx changed wound improved since debridement will monitor cont abx cont dressings trend labs wbc remains elevated unlikely related to wound heme input DAILY ESTIMATED NEEDS: Needs based on Wound, DM/ 57kg abw 25-30 kcals/kg 9867-1712 total kcals 1.25-1.8 g protein/kg 71-103 g total protein 20-25 mL/kg 6887-5148 total fluid mLs NUTRITION DIAGNOSIS: * Increased kcal/prot needs R/T wound healing as evidenced by pt admiteed w/ unstageable sacral wound, refer to full wound care eval. * Swallowing difficulty R/T dysphagia, respiratory status as evidenced by pt on T-collar, PEG dep. CURRENT TF:Glucerna 1.2 @ 50ml/hr x 24 hrs ENTERAL NUTRITION RECOMMENDATIONS: Glucerna 1.2 @ 50ml/hr x 24 hrs to provide 1200ml, 1440kcal, 72g, 966ml free water * Maintain current TF * HOB over 30 degrees/ water flush per MD ADDITIONAL RECOMMENDATIONS: * Calibrated bedscale wt -w/ added p200 mattress + pump * Wound healing: TF @ goal will provide 100% RDI Continue Vit C 250mg QD + add Endy BID via PEG * Monitor lytes closely w/ Lasix, replete as needed * Monitor BGs, rec increasing Levemir (POC glu 373 310) . (3) Elevated troponin (4) Pneumonia (5) Encounter for generalized patient complaints (6) Decubitus skin ulcer Assessment & Plan: Patient presented on admission with an Unstageable Sacral Pressure injury(L)9.8cm x (W)6.7cm. Base of wound is 80% necrotic ,20% mixed slough ,beefy red. Small amt serous exudate. Mild odor noted. Borders are macerated with surrounding maroon and indurated borders. MASD noted to Mons-pubis outer aspects of R and L buttocks. Perineum and bilat ischial tuberosities. Affected areas mentioned are erythematous, macerated with scattered satellite lesions. Non-Blanchable erythema without induration or fluctuance R and L Heels. Skin assessed under tracheal collar and no evidence of skin breakdown noted. As sessed pt and necrotic base of Sacral wound crosshatched by Md. Unstageable Sacral Pressure Injury (L)9.8cm x (W)7cm. 90% dry necrotic cap ,10% lj borders. Edges are adherent to base of wound. Periwound is pink and dry. No odor or exudate noted. Small external haemorrhoid with small amt bleeding noted. R and L heels are both blanchable. No new skin concerns noted. Wound Tx are effective and continued as ordered . All wound prevention protocols continued as care-planned. Pt has an APM/DANIEL Mattress overlay and is being positioned as per tolerance and within protocols. s/p excisional debridement of stage 4 decubitus ulcer Tx.Plan: Cleanse Sacral wound with Saline. Apply TheraHoney. Apply Moisture Barrier Paste periwound. Cover with Optifoam Drsg. Change Daily and prn. Apply Moisture Barrier Paste to Mons Pubis, Perineum and buttocks with each Incontinence care. Apply Cavilon Skin Barrier to Both heels and Malleoli. Cover each site with Optifoam Drsg. Change every 7 days and prn. Reposition at least every 2hours or as tolerated. Off-load heels with Pillow. Reposition at least every 2hours or as tolerated. APM/DANIEL mattress overlay. Adrian Gar Jun 23, 2020 13:30
[2020-06-23] MEDS ORDERED: Heparin1,000 units/500ml Premix(Conc:2 units/ml) IV PRN (14:00)
[2020-06-23] MEDS ORDERED: Lidocaine 1% Plain 30 ml INJ PRN (14:00)
--- NOTE | 2020-06-23 15:04 | Diagnostic Imaging Report ---
EXAM: XRAY Abdomen 1v HISTORY: Abdominal pain COMPARISON: None. TECHNIQUE: Frontal view of the abdomen obtained. FINDINGS: There is a nonspecific bowel gas pattern. There is relative paucity of bowel gas with scattered nondistended loops noted There is no mass or mass effect noted. No definite pathologic calcifications identified. There is no sign of free air. No acute abnormality noted of the visualized osseous structures. IMPRESSION: NONSPECIFIC BOWEL GAS PATTERN. NO DISTINCT SIGN OF ACUTE DISEASE.
[2020-06-23 16:00] VITALS: BP 121/79
[2020-06-23] MEDS ORDERED: Cefepime 1gm in D5W 55ml IVPB ONE (16:00)
[2020-06-23 20:00] VITALS: BP 149/75
[2020-06-23] MEDS: Dyna-Hex 2% Top Sol 2oz TOPIC SCH (20:35)
[2020-06-24] VITALS: BP 134/67
[2020-06-24 04:00] VITALS: BP 149/84
[2020-06-24] MEDS: Metoprolol Tartrate 50mg tab GT SCH ×3 (05:59→20:40)
[2020-06-24] MEDS: NovoLOG Insulin Flexpen SUBQ SCH ×4 (05:59→18:45)
[2020-06-24 08:00] VITALS: BP 149/85
--- NOTE | 2020-06-24 08:07 | Pulmonology Progress Note ---
Subjective ROS Limited/Unobtainable: Yes Constitutional: Denies: fever Allergies: Coded Allergies: No Known Allergies (Unverified , 05/15/20) Subjective care noted moved to [facility] some issues with respirations heme called Objective Last 24 Hour Vital Signs Date Time Temp Pulse Resp B/P (MAP) Pulse Ox O2 Delivery O2 Flow Rate FiO2 06/24/20 05:59 83 149/84 06/24/20 04:00 98.0 78 21 149/84 (105) 100 06/24/20 03:34 76 06/24/20 01:35 96 T-Piece 6.0 28 06/24/20 00:00 98.1 67 24 134/67 (89) 98 06/24/20 00:00 67 06/23/20 21:43 84 149/75 06/23/20 21:00 Trach Collar 5.0 06/23/20 20:14 98 T-Piece 6.0 28 06/23/20 20:00 97.9 84 22 149/75 (99) 98 06/23/20 20:00 85 06/23/20 18:26 154/77 06/23/20 16:00 91 06/23/20 16:00 97.9 98 20 121/79 (93) 100 06/23/20 14:44 160/71 06/23/20 14:44 91 160/71 06/23/20 13:40 97 T-Piece 6.0 28 06/23/20 12:00 87 06/23/20 12:00 97.9 88 22 150/69 (96) 96 06/23/20 09:42 146/74 06/23/20 09:00 Trach Collar 5.0 Intake and Output 06/23/20 06/24/20 19:00 07:00 Intake Total 240 ml Output Total 700 ml 600 ml Balance -700 ml -360 ml Free Water 40 ml Tube Feeding 200 ml Output Urine Total 700 ml 600 ml Objective WDWN NAD trach reduced breath sounds bilaterally without rhonchi [id number] without MRG NABS nontender GT no CCE withdrawn Laboratory Tests 06/23/20 13:58: Arterial Blood pH 7.471H, Arterial Blood Partial Pressure CO2 28.1L, Arterial Blood Partial Pressure O2 76.4, Arterial Blood HCO3 20.0L, Arterial Blood Oxygen Saturation 94.9L, Arterial Blood Base Excess -2.8L, Sudeep Test Positive 06/23/20 18:10: POC Whole Blood Glucose 126H 06/23/20 21:38: POC Whole Blood Glucose 134H 06/24/20 00:56: POC Whole Blood Glucose 131H 06/24/20 05:45: POC Whole Blood Glucose 123H Current Medications Medications (Trade) Dose Ordered Sig/Cayden Route PRN Reason Start Time Stop Time Status Last Admin Dose Admin Acetaminophen (Tylenol) 650 mg Q4H PRN GT Pain 05/26/20 07:45 06/25/20 07:44 06/16/20 22:01 Apixaban (Eliquis) 5 mg BID GT 06/20/20 09:00 09/18/20 08:59 06/23/20 18:25 Ascorbic Acid (Vitamin C) 250 mg DAILY GT 05/28/20 09:00 06/27/20 08:59 06/23/20 09:41 Chlorhexidine Gluconate (Ayaka-Hex 2%) 1 applic DAILY@2000 TOPIC 06/23/20 20:00 09/21/20 19:59 06/23/20 20:35 Clonidine HCl (Catapres Tab) 0.1 mg Q4H PRN GT for sbp>150 06/20/20 08:15 09/01/20 08:59 06/22/20 09:52 Dextrose (Dextrose 50%) 25 ml Q30M PRN IV Hypoglycemia 05/26/20 07:30 08/24/20 07:29 Dextrose (Dextrose 50%) 50 ml Q30M PRN IV Hypoglycemia 05/26/20 07:30 08/24/20 07:29 Fluconazole (Diflucan) 100 mg DAILY GT 06/20/20 13:00 06/27/20 12:59 06/23/20 09:40 Heparin Sodium/ Sodium Chloride (Heparin 1000 units/500ml Premix) 1,000 unit ONCE PRN IV picc line placement 06/23/20 14:00 06/25/20 13:59 Insulin Aspart (NovoLOG) Q6HR SUBQ 05/26/20 12:00 08/24/20 11:59 06/22/20 12:28 Insulin Detemir (Levemir) 24 units EVERY 12 HOURS SUBQ 06/16/20 09:00 09/14/20 08:59 06/23/20 10:39 Isosorbide Dinitrate (Isordil) 20 mg THREE TIMES A DAY GT 06/02/20 13:00 07/02/20 12:59 06/23/20 18:26 Lansoprazole (Prevacid) 30 mg DAILY GT 06/24/20 09:00 07/24/20 08:59 Lidocaine HCl (Xylocaine 1% 30ml) 30 ml ONCE PRN INJ picc line placement 06/23/20 14:00 06/25/20 13:59 Linezolid (Zyvox) 600 mg EVERY 12 HOURS GT 06/19/20 21:00 06/28/20 23:59 06/23/20 20:35 Magnesium Sulfate 100 ml @ 100 mls/hr Q1H IVPB 06/24/20 09:00 06/24/20 10:59 Metoprolol Tartrate (Lopressor) 50 mg EVERY 8 HOURS GT 05/28/20 22:00 08/26/20 21:59 06/24/20 05:59 Assessment/Plan Assessment/Plan IMPRESSION leukocytosis, worse Afib, chronic encephalopathy trach respiratory failure elevated troponin anemia bacteremia- staph fevers better hypertension osteo hematuria diabetes UTI with candiida PLAN wbc follow up heme eval and recommendations respiratory care; monitor in [facility] snf meds suction monitor cultures eliquis ID follow up and recommendations - regarding elevated wbc impression, plan, and exam edited and reviewed in detail care discussed with Fernie Ledezma MD Jun 24, 2020 08:07
--- NOTE | 2020-06-24 08:31 | Hematology/Onc Progress Note ---
Assessment/Plan Assessment/Plan Assessment and Recs # Leukocytosis, peripherally -- may be multiple causes, metamyelocytes and myelocytes noted on automatic cbc analyzer --> FIRSt, begin with peripheral smear, ordered --> after send for flow coytometry, r/o leukemia v other processes --> inflammatory markers elevated, may be a cause --> wbc 26-->21 # Anemia of chronic disease due to underlying chronic medical issues, multifactorial v Gi bleed --> Anemia workup has been ordered, rule out gi bleed --> No evidence of hemolysis is noted, peripheral smear has been reviewed. --> Hgb goal >7. Transfuse prn. --> Epogen or iron at this time is not particularly indicated --> Medications have been reviewed --> low threshold for gi evaluation in case has occult + --> hgb 9-->9.1 # Sepsis with pna --> ABX fluc, linezolid, cefepime # PNA --> imaging per id, pulm # Elevated troponin --> cards aware # Dvt ppx --> apixaban Appreciate consultation and continue to follow Subjective Constitutional: Denies: no symptoms, chills, fever, malaise, weakness, other HEENT: Denies: no symptoms, eye pain, blurred vision, tearing, double vision, ear pain, ear discharge, nose pain, nose congestion, throat pain, throat swelling, mouth pain, mouth swelling, other Cardiovascular: Denies: no symptoms, chest pain, edema, irregular heart rate, lightheadedness, palpitations, syncope, other Respiratory: Denies: no symptoms, cough, shortness of breath, SOB with excertion, SOB at rest, sputum, wheezing, other Gastrointestinal/Abdominal: Denies: no symptoms, abdomen distended, abdominal pain, black stools, tarry stools, blood in stool, constipated, diarrhea, difficulty swallowing, nausea, poor appetite, poor fluid intake, rectal bleeding, vomiting, other Genitourinary: Denies: no symptoms, burning, discharge, frequency, flank pain, hematuria, incontinence, pain, urgency, other Neurologic/Psychiatric: Denies: no symptoms, anxiety, depressed, emotional problems, headache, numbness, paresthesia, pre-existing deficit, seizure, tingling, tremors, weakness, other Endocrine: Denies: no symptoms, excessive sweating, flushing, intolerance to cold, intolerance to heat, increased hunger, increased thirst, increased urine, unexplained weight gain, unexplained weight loss, other Allergies: Coded Allergies: No Known Allergies (Unverified , 05/15/20) Subjective 06/24 labs are noted, wbc has improved, no bleeding, meds noted, nv Objective Objective Current Medications Medications (Trade) Dose Ordered Sig/Cayden Route PRN Reason Start Time Stop Time Status Last Admin Dose Admin Acetaminophen (Tylenol) 650 mg Q4H PRN GT Pain 05/26/20 07:45 06/25/20 07:44 06/16/20 22:01 Apixaban (Eliquis) 5 mg BID GT 06/20/20 09:00 09/18/20 08:59 06/23/20 18:25 Ascorbic Acid (Vitamin C) 250 mg DAILY GT 05/28/20 09:00 06/27/20 08:59 06/23/20 09:41 Chlorhexidine Gluconate (Ayaka-Hex 2%) 1 applic DAILY@2000 TOPIC 06/23/20 20:00 09/21/20 19:59 06/23/20 20:35 Clonidine HCl (Catapres Tab) 0.1 mg Q4H PRN GT for sbp>150 06/20/20 08:15 09/01/20 08:59 06/22/20 09:52 Dextrose (Dextrose 50%) 25 ml Q30M PRN IV Hypoglycemia 05/26/20 07:30 08/24/20 07:29 Dextrose (Dextrose 50%) 50 ml Q30M PRN IV Hypoglycemia 05/26/20 07:30 08/24/20 07:29 Fluconazole (Diflucan) 100 mg DAILY GT 06/20/20 13:00 06/27/20 12:59 06/23/20 09:40 Heparin Sodium/ Sodium Chloride (Heparin 1000 units/500ml Premix) 1,000 unit ONCE PRN IV picc line placement 06/23/20 14:00 06/25/20 13:59 Insulin Aspart (NovoLOG) Q6HR SUBQ 05/26/20 12:00 08/24/20 11:59 06/22/20 12:28 Insulin Detemir (Levemir) 24 units EVERY 12 HOURS SUBQ 06/16/20 09:00 09/14/20 08:59 06/23/20 10:39 Isosorbide Dinitrate (Isordil) 20 mg THREE TIMES A DAY GT 06/02/20 13:00 07/02/20 12:59 06/23/20 18:26 Lansoprazole (Prevacid) 30 mg DAILY GT 06/24/20 09:00 07/24/20 08:59 Lidocaine HCl (Xylocaine 1% 30ml) 30 ml ONCE PRN INJ picc line placement 06/23/20 14:00 06/25/20 13:59 Linezolid (Zyvox) 600 mg EVERY 12 HOURS GT 06/19/20 21:00 06/28/20 23:59 06/23/20 20:35 Magnesium Sulfate 100 ml @ 100 mls/hr Q1H IVPB 06/24/20 09:00 06/24/20 10:59 Metoprolol Tartrate (Lopressor) 50 mg EVERY 8 HOURS GT 05/28/20 22:00 08/26/20 21:59 06/24/20 05:59 Last 24 Hour Vital Signs Date Time Temp Pulse Resp B/P (MAP) Pulse Ox O2 Delivery O2 Flow Rate FiO2 06/24/20 05:59 83 149/84 06/24/20 04:00 98.0 78 21 149/84 (105) 100 06/24/20 03:34 76 06/24/20 01:35 96 T-Piece 6.0 28 06/24/20 00:00 98.1 67 24 134/67 (89) 98 06/24/20 00:00 67 06/23/20 21:43 84 149/75 06/23/20 21:00 Trach Collar 5.0 06/23/20 20:14 98 T-Piece 6.0 28 06/23/20 20:00 97.9 84 22 149/75 (99) 98 06/23/20 20:00 85 06/23/20 18:26 154/77 06/23/20 16:00 91 06/23/20 16:00 97.9 98 20 121/79 (93) 100 06/23/20 14:44 160/71 06/23/20 14:44 91 160/71 06/23/20 13:40 97 T-Piece 6.0 28 06/23/20 12:00 87 06/23/20 12:00 97.9 88 22 150/69 (96) 96 06/23/20 09:42 146/74 06/23/20 09:00 Trach Collar 5.0 06/23/20 08:00 77 06/23/20 08:00 97.9 77 20 146/74 (98) 100 06/23/20 07:36 97 T-Piece 6.0 28 06/23/20 06:34 84 157/73 06/23/20 04:00 98.1 84 20 157/73 (101) 100 06/23/20 04:00 84 06/23/20 01:24 96 T-Piece 6.0 28 06/23/20 00:00 97.0 83 20 144/68 (93) 97 06/23/20 00:00 74 06/22/20 21:57 87 142/68 06/22/20 21:00 Trach Collar 5.0 06/22/20 20:16 95 T-Piece 6.0 28 06/22/20 20:00 83 06/22/20 20:00 97.4 87 20 142/68 (92) 95 06/22/20 17:37 142/68 06/22/20 16:00 96 06/22/20 16:00 97.9 92 20 142/68 (92) 94 06/22/20 13:35 152/72 06/22/20 13:35 81 152/72 06/22/20 13:17 95 T-Piece 6.0 28 06/22/20 12:00 88 06/22/20 12:00 96.6 81 18 152/72 (98) 98 06/22/20 09:52 151/69 06/22/20 09:52 151/69 06/22/20 09:00 Trach Collar 5.0 Intake and Output 06/23/20 06/24/20 19:00 07:00 Intake Total 240 ml Output Total 700 ml 600 ml Balance -700 ml -360 ml Free Water 40 ml Tube Feeding 200 ml Output Urine Total 700 ml 600 ml Labs Test 06/21/20 11:41 06/21/20 17:48 06/21/20 20:03 06/22/20 00:35 POC Whole Blood Glucose 146 MG/DL (74-106) 146 MG/DL (74-106) Test 06/22/20 05:20 06/22/20 09:50 06/22/20 12:19 06/22/20 17:26 POC Whole Blood Glucose 188 MG/DL (74-106) 117 MG/DL (74-106) White Blood Count 23.7 K/UL (4.8-10.8) Red Blood Count 3.86 M/UL (4.20-5.40) Hemoglobin 9.9 G/DL (12.0-16.0) Hematocrit 30.2 % (37.0-47.0) Mean Corpuscular Volume 78 FL (80-99) Mean Corpuscular Hemoglobin 25.8 PG (27.0-31.0) Mean Corpuscular Hemoglobin Concent 32.9 G/DL (32.0-36.0) Red Cell Distribution Width 16.5 % (11.6-14.8) Platelet Count 259 K/UL (150-450) Mean Platelet Volume 7.2 FL (6.5-10.1) Neutrophils (%) (Auto) % (45.0-75.0) Lymphocytes (%) (Auto) % (20.0-45.0) Monocytes (%) (Auto) % (1.0-10.0) Eosinophils (%) (Auto) % (0.0-3.0) Basophils (%) (Auto) % (0.0-2.0) Differential Total Cells Counted 100 Neutrophils % (Manual) 92 % (45-75) Lymphocytes % (Manual) 4 % (20-45) Monocytes % (Manual) 3 % (1-10) Eosinophils % (Manual) 1 % (0-3) Basophils % (Manual) 0 % (0-2) Band Neutrophils 0 % (0-8) Platelet Estimate Adequate Platelet Morphology Normal Anisocytosis 1+ Sodium Level 142 MMOL/L (136-145) Potassium Level 4.8 MMOL/L (3.5-5.1) Chloride Level 108 MMOL/L (98-107) Carbon Dioxide Level 21 MMOL/L (21-32) Anion Gap 13 mmol/L (5-15) Blood Urea Nitrogen 57 mg/dL (7-18) Creatinine 1.2 MG/DL (0.55-1.30) Estimat Glomerular Filtration Rate 44.0 mL/min (>60) Glucose Level 175 MG/DL (74-106) Calcium Level 8.4 MG/DL (8.5-10.1) Test 06/22/20 21:55 06/23/20 00:48 06/23/20 05:12 06/23/20 06:39 POC Whole Blood Glucose 119 MG/DL (74-106) 133 MG/DL (74-106) White Blood Count 20.9 K/UL (4.8-10.8) Red Blood Count 3.53 M/UL (4.20-5.40) Hemoglobin 9.1 G/DL (12.0-16.0) Hematocrit 27.8 % (37.0-47.0) Mean Corpuscular Volume 79 FL (80-99) Mean Corpuscular Hemoglobin 25.8 PG (27.0-31.0) Mean Corpuscular Hemoglobin Concent 32.7 G/DL (32.0-36.0) Red Cell Distribution Width 16.3 % (11.6-14.8) Platelet Count 220 K/UL (150-450) Mean Platelet Volume 6.8 FL (6.5-10.1) Neutrophils (%) (Auto) % (45.0-75.0) Lymphocytes (%) (Auto) % (20.0-45.0) Monocytes (%) (Auto) % (1.0-10.0) Eosinophils (%) (Auto) % (0.0-3.0) Basophils (%) (Auto) % (0.0-2.0) Differential Total Cells Counted 100 Neutrophils % (Manual) 92 % (45-75) Lymphocytes % (Manual) 6 % (20-45) Monocytes % (Manual) 1 % (1-10) Eosinophils % (Manual) 1 % (0-3) Basophils % (Manual) 0 % (0-2) Band Neutrophils 0 % (0-8) Platelet Estimate Adequate Platelet Morphology Normal Hypochromasia 1+ Anisocytosis 1+ Microcytosis 1+ Sodium Level 142 MMOL/L (136-145) Potassium Level 4.4 MMOL/L (3.5-5.1) Chloride Level 107 MMOL/L (98-107) Carbon Dioxide Level 23 MMOL/L (21-32) Anion Gap 12 mmol/L (5-15) Blood Urea Nitrogen 52 mg/dL (7-18) Creatinine 1.1 MG/DL (0.55-1.30) Estimat Glomerular Filtration Rate 48.7 mL/min (>60) Glucose Level 138 MG/DL (74-106) Calcium Level 8.5 MG/DL (8.5-10.1) Magnesium Level 1.5 MG/DL (1.8-2.4) Test 06/23/20 13:58 06/23/20 18:10 06/23/20 21:38 06/24/20 00:56 Arterial Blood pH 7.471 (7.350-7.450) Arterial Blood Partial Pressure CO2 28.1 mmHg (35.0-45.0) Arterial Blood Partial Pressure O2 76.4 mmHg (75.0-100.0) Arterial Blood HCO3 20.0 mmol/L (22.0-26.0) Arterial Blood Oxygen Saturation 94.9 % (95-100) Arterial Blood Base Excess -2.8 (-2-2) Sudeep Test Positive POC Whole Blood Glucose 126 MG/DL (74-106) 134 MG/DL (74-106) 131 MG/DL (74-106) Test 06/24/20 05:45 POC Whole Blood Glucose 123 MG/DL (74-106) Height (Feet): 5 Height (Inches): 3.00 Weight (Pounds): 157 Objective GEN: nad, nv HEENT: normal ENT inspection, Thin Trach++ RHYTHM: NSR, PACs LUNGS: diminished breath sounds - left, bilateral rhonchi CARDIAC: normal rate, regular rhythm, normal S1 and S2, arrhythmia ABDOMEN: normal bowel sounds, non tender, soft, G-Tube intact++ EXTREMITIES: trace edema, other - sacral decub. noncommunicative Edwin Mendoza MD Jun 24, 2020 08:31
[2020-06-24 09:06] LABS: HEMATOCRIT 32.1 % (37.0-47.0); HEMOGLOBIN 10.5 G/DL (12.0-16.0); MEAN CORPUSCULAR VOLUME 79 FL (80-99); PLATELET COUNT 194 K/UL (150-450); RED BLOOD COUNT 4.07 M/UL (4.20-5.40); RED CELL DISTRIBUTION WIDTH 16.7 % (11.6-14.8)
[2020-06-24 09:11] LABS: POTASSIUM 4.6 MMOL/L (3.5-5.1)
[2020-06-24 09:12] LABS: CALCIUM 8.7 MG/DL (8.5-10.1)
[2020-06-24] MEDS: Fluconazole 100mg tab GT SCH (09:50)
[2020-06-24] MEDS: Ascorbic Acid 500mg tab GT SCH (09:50)
[2020-06-24] MEDS: Eliquis 5mg tablet GT SCH ×2 (09:50→18:45)
[2020-06-24] MEDS: Levemir Flexpen SUBQ SCH ×2 (09:55→20:49)
--- NOTE | 2020-06-24 11:14 | Infectious Diseases Prog Note ---
Assessment/Plan Assessment/Plan antibiotics : linezolid, fluconazole A 1. acenitobacter pneumonia s/p rx 2. + blood cultures with coag neg staph likely contaminated 3. leucocytosis improving 4. diabetes mellitus 5. hypertension 6. CVA 7. dementia 8. coccygeal osteomyelitis s/p debridement 9. renal failure 10. fungal UTI P 1. continue linezolid 11 more days 2. continue fluconazole 1 more day 3. will follow up cultures Subjective ROS Limited/Unobtainable: Yes Allergies: Coded Allergies: No Known Allergies (Unverified , 05/15/20) Objective Last 24 Hour Vital Signs Date Time Temp Pulse Resp B/P (MAP) Pulse Ox O2 Delivery O2 Flow Rate FiO2 06/24/20 09:50 149/85 06/24/20 08:32 Trach Collar 5.0 06/24/20 08:00 97.0 80 22 149/85 (106) 100 06/24/20 07:52 100 T-Piece 6.0 28 06/24/20 05:59 83 149/84 06/24/20 04:00 98.0 78 21 149/84 (105) 100 06/24/20 03:34 76 06/24/20 01:35 96 T-Piece 6.0 28 06/24/20 00:00 98.1 67 24 134/67 (89) 98 06/24/20 00:00 67 06/23/20 21:43 84 149/75 06/23/20 21:00 Trach Collar 5.0 06/23/20 20:14 98 T-Piece 6.0 28 06/23/20 20:00 97.9 84 22 149/75 (99) 98 06/23/20 20:00 85 06/23/20 18:26 154/77 06/23/20 16:00 91 06/23/20 16:00 97.9 98 20 121/79 (93) 100 06/23/20 14:44 160/71 06/23/20 14:44 91 160/71 06/23/20 13:40 97 T-Piece 6.0 28 06/23/20 12:00 87 06/23/20 12:00 97.9 88 22 150/69 (96) 96 Height (Feet): 5 Height (Inches): 3.00 Weight (Pounds): 157 HEENT: status post trach Respiratory/Chest: lungs clear Cardiovascular: normal rate, regular rhythm, no gallop/murmur Abdomen: soft, non tender, other - GT Extremities: no edema Laboratory Tests Test 06/23/20 13:58 06/23/20 18:10 06/23/20 21:38 06/24/20 00:56 Arterial Blood pH 7.471 (7.350-7.450) Arterial Blood Partial Pressure CO2 28.1 mmHg (35.0-45.0) L Arterial Blood Partial Pressure O2 76.4 mmHg (75.0-100.0) Arterial Blood HCO3 20.0 mmol/L (22.0-26.0) L Arterial Blood Oxygen Saturation 94.9 % (95-100) L Arterial Blood Base Excess -2.8 (-2-2) L Sudeep Test Positive POC Whole Blood Glucose 126 MG/DL (74-106) H 134 MG/DL (74-106) H 131 MG/DL (74-106) H Test 06/24/20 05:45 06/24/20 08:30 POC Whole Blood Glucose 123 MG/DL (74-106) H White Blood Count 17.0 K/UL (4.8-10.8) H Red Blood Count 4.07 M/UL (4.20-5.40) L Hemoglobin 10.5 G/DL (12.0-16.0) L Hematocrit 32.1 % (37.0-47.0) L Mean Corpuscular Volume 79 FL (80-99) L Mean Corpuscular Hemoglobin 25.7 PG (27.0-31.0) L Mean Corpuscular Hemoglobin Concent 32.7 G/DL (32.0-36.0) Red Cell Distribution Width 16.7 % (11.6-14.8) H Platelet Count 194 K/UL (150-450) Mean Platelet Volume 7.5 FL (6.5-10.1) Neutrophils (%) (Auto) % (45.0-75.0) Lymphocytes (%) (Auto) % (20.0-45.0) Monocytes (%) (Auto) % (1.0-10.0) Eosinophils (%) (Auto) % (0.0-3.0) Basophils (%) (Auto) % (0.0-2.0) Differential Total Cells Counted 100 Neutrophils % (Manual) 88 % (45-75) H Lymphocytes % (Manual) 9 % (20-45) L Monocytes % (Manual) 3 % (1-10) Eosinophils % (Manual) 0 % (0-3) Basophils % (Manual) 0 % (0-2) Band Neutrophils 0 % (0-8) Platelet Estimate Adequate Platelet Morphology Normal Hypochromasia 1+ Anisocytosis 1+ Microcytosis 1+ Sodium Level 140 MMOL/L (136-145) Potassium Level 4.6 MMOL/L (3.5-5.1) Chloride Level 106 MMOL/L (98-107) Carbon Dioxide Level 22 MMOL/L (21-32) Anion Gap 12 mmol/L (5-15) Blood Urea Nitrogen 43 mg/dL (7-18) H Creatinine 1.0 MG/DL (0.55-1.30) Estimat Glomerular Filtration Rate 54.3 mL/min (>60) Glucose Level 146 MG/DL (74-106) H Calcium Level 8.7 MG/DL (8.5-10.1) Magnesium Level 2.2 MG/DL (1.8-2.4) Current Medications Medications (Trade) Dose Ordered Sig/Cayden Route PRN Reason Start Time Stop Time Status Last Admin Dose Admin Acetaminophen (Tylenol) 650 mg Q4H PRN GT Pain 05/26/20 07:45 06/25/20 07:44 06/16/20 22:01 Apixaban (Eliquis) 5 mg BID GT 06/20/20 09:00 09/18/20 08:59 06/24/20 09:50 Ascorbic Acid (Vitamin C) 250 mg DAILY GT 05/28/20 09:00 06/27/20 08:59 06/24/20 09:50 Chlorhexidine Gluconate (Ayaka-Hex 2%) 1 applic DAILY@1999 TOPIC 06/23/20 20:00 09/21/20 19:59 06/23/20 20:35 Clonidine HCl (Catapres Tab) 0.1 mg Q4H PRN GT for sbp>150 06/20/20 08:15 09/01/20 08:59 06/22/20 09:52 Dextrose (Dextrose 50%) 25 ml Q30M PRN IV Hypoglycemia 05/26/20 07:30 08/24/20 07:29 Dextrose (Dextrose 50%) 50 ml Q30M PRN IV Hypoglycemia 05/26/20 07:30 08/24/20 07:29 Fluconazole (Diflucan) 100 mg DAILY GT 06/20/20 13:00 06/27/20 12:59 06/24/20 09:50 Heparin Sodium/ Sodium Chloride (Heparin 1000 units/500ml Premix) 1,000 unit ONCE PRN IV picc line placement 06/23/20 14:00 06/25/20 13:59 Insulin Aspart (NovoLOG) Q6HR SUBQ 05/26/20 12:00 08/24/20 11:59 06/22/20 12:28 Insulin Detemir (Levemir) 24 units EVERY 12 HOURS SUBQ 06/16/20 09:00 09/14/20 08:59 06/24/20 09:55 Isosorbide Dinitrate (Isordil) 20 mg THREE TIMES A DAY GT 06/02/20 13:00 07/02/20 12:59 06/24/20 09:50 Lansoprazole (Prevacid) 30 mg DAILY GT 06/24/20 09:00 07/24/20 08:59 06/24/20 09:50 Lidocaine HCl (Xylocaine 1% 30ml) 30 ml ONCE PRN INJ picc line placement 06/23/20 14:00 06/25/20 13:59 Linezolid (Zyvox) 600 mg EVERY 12 HOURS GT 06/19/20 21:00 06/28/20 23:59 06/24/20 09:50 Metoprolol Tartrate (Lopressor) 50 mg EVERY 8 HOURS GT 05/28/20 22:00 08/26/20 21:59 06/24/20 05:59 Mina Salamanca MD Jun 24, 2020 11:14
[2020-06-24 12:00] VITALS: BP 167/86
--- NOTE | 2020-06-24 15:23 | Surgery Progress Note ---
Surgery Progress Note Subjective Procedure Performed Excisional debridement of sacral decubitus ulcer 10 cm x 10 cm x 4 cm deep down to bone Additional Comments ill appearing labs noted no acute events Objective Last 24 Hour Vital Signs Date Time Temp Pulse Resp B/P (MAP) Pulse Ox O2 Delivery O2 Flow Rate FiO2 06/24/20 13:58 98 T-Piece 6.0 28 06/24/20 12:59 167/86 06/24/20 12:59 167/86 06/24/20 12:59 82 167/86 06/24/20 12:00 96.3 82 23 167/86 (113) 97 06/24/20 11:53 81 06/24/20 09:50 149/85 06/24/20 08:32 Trach Collar 5.0 06/24/20 08:00 97.0 80 22 149/85 (106) 100 06/24/20 07:53 71 06/24/20 07:52 100 T-Piece 6.0 28 06/24/20 05:59 83 149/84 06/24/20 04:00 98.0 78 21 149/84 (105) 100 06/24/20 03:34 76 06/24/20 01:35 96 T-Piece 6.0 28 06/24/20 00:00 98.1 67 24 134/67 (89) 98 06/24/20 00:00 67 06/23/20 21:43 84 149/75 06/23/20 21:00 Trach Collar 5.0 06/23/20 20:14 98 T-Piece 6.0 28 06/23/20 20:00 97.9 84 22 149/75 (99) 98 06/23/20 20:00 85 06/23/20 18:26 154/77 06/23/20 16:00 91 06/23/20 16:00 97.9 98 20 121/79 (93) 100 I&O Intake and Output 06/23/20 06/24/20 19:00 07:00 Intake Total 240 ml Output Total 700 ml 600 ml Balance -700 ml -360 ml Free Water 40 ml Tube Feeding 200 ml Output Urine Total 700 ml 600 ml Dressing: other Wound: other Cardiovascular: RSR Respiratory: decreased breath sounds Abdomen: soft, non-tender, present bowel sounds Extremities: no cyanosis Laboratory Tests Test 06/23/20 18:10 06/23/20 21:38 06/24/20 00:56 06/24/20 05:45 POC Whole Blood Glucose 126 MG/DL (74-106) H 134 MG/DL (74-106) H 131 MG/DL (74-106) H 123 MG/DL (74-106) H Test 06/24/20 08:30 06/24/20 12:17 White Blood Count 17.0 K/UL (4.8-10.8) H Red Blood Count 4.07 M/UL (4.20-5.40) L Hemoglobin 10.5 G/DL (12.0-16.0) L Hematocrit 32.1 % (37.0-47.0) L Mean Corpuscular Volume 79 FL (80-99) L Mean Corpuscular Hemoglobin 25.7 PG (27.0-31.0) L Mean Corpuscular Hemoglobin Concent 32.7 G/DL (32.0-36.0) Red Cell Distribution Width 16.7 % (11.6-14.8) H Platelet Count 194 K/UL (150-450) Mean Platelet Volume 7.5 FL (6.5-10.1) Neutrophils (%) (Auto) % (45.0-75.0) Lymphocytes (%) (Auto) % (20.0-45.0) Monocytes (%) (Auto) % (1.0-10.0) Eosinophils (%) (Auto) % (0.0-3.0) Basophils (%) (Auto) % (0.0-2.0) Differential Total Cells Counted 100 Neutrophils % (Manual) 88 % (45-75) H Lymphocytes % (Manual) 9 % (20-45) L Monocytes % (Manual) 3 % (1-10) Eosinophils % (Manual) 0 % (0-3) Basophils % (Manual) 0 % (0-2) Band Neutrophils 0 % (0-8) Platelet Estimate Adequate Platelet Morphology Normal Hypochromasia 1+ Anisocytosis 1+ Microcytosis 1+ Sodium Level 140 MMOL/L (136-145) Potassium Level 4.6 MMOL/L (3.5-5.1) Chloride Level 106 MMOL/L (98-107) Carbon Dioxide Level 22 MMOL/L (21-32) Anion Gap 12 mmol/L (5-15) Blood Urea Nitrogen 43 mg/dL (7-18) H Creatinine 1.0 MG/DL (0.55-1.30) Estimat Glomerular Filtration Rate 54.3 mL/min (>60) Glucose Level 146 MG/DL (74-106) H Calcium Level 8.7 MG/DL (8.5-10.1) Magnesium Level 2.2 MG/DL (1.8-2.4) POC Whole Blood Glucose 184 MG/DL (74-106) H Assessment Post-op Diagnosis Stage IV sacral decubitus ulcer Plan Problems: (1) Anemia (2) Sepsis Assessment & Plan: 74-year-old female with medical comorbidities present with leukocytosis anemia abnormal labs hypoalbuminemia failure to thrive malnutrition worsening decubitus ulcer admitted further care and management was prior on vancomycin now on IV antibiotics admitted and under monitoring. Full evaluation does not at the bedside and evaluation performed. Trach stable PEG tube stable skin deteriorating per her turgor worsening decubitus ulcer malnutrition continue tube feeds as tolerated continue antibiotics wounds unlikely etiology of patient's sepsis we will monitor and follow with recommendations trend labs thank you for letting participate patient's care improving 06/13 acute severe leukocytosis abx changed wound improved since debridement will monitor cont abx cont dressings trend labs wbc remains elevated unlikely related to wound heme input DAILY ESTIMATED NEEDS: Needs based on Wound, DM/ 57kg abw 25-30 kcals/kg 1765-7020 total kcals 1.25-1.8 g protein/kg 71-103 g total protein 20-25 mL/kg 8386-3078 total fluid mLs NUTRITION DIAGNOSIS: * Increased kcal/prot needs R/T wound healing as evidenced by pt admiteed w/ unstageable sacral wound, refer to full wound care eval. * Swallowing difficulty R/T dysphagia, respiratory status as evidenced by pt on T-collar, PEG dep. CURRENT TF:Glucerna 1.2 @ 50ml/hr x 24 hrs ENTERAL NUTRITION RECOMMENDATIONS: Glucerna 1.2 @ 50ml/hr x 24 hrs to provide 1200ml, 1440kcal, 72g, 966ml free water * Maintain current TF * HOB over 30 degrees/ water flush per MD ADDITIONAL RECOMMENDATIONS: * Calibrated bedscale wt -w/ added p200 mattress + pump * Wound healing: TF @ goal will provide 100% RDI Continue Vit C 250mg QD + add Endy BID via PEG * Monitor lytes closely w/ Lasix, replete as needed * Monitor BGs, rec increasing Levemir (POC glu [phone]) . (3) Elevated troponin (4) Pneumonia (5) Encounter for generalized patient complaints (6) Decubitus skin ulcer Assessment & Plan: Patient presented on admission with an Unstageable Sacral Pressure injury(L)9.8cm x (W)6.7cm. Base of wound is 80% necrotic ,20% mixed slough ,beefy red. Small amt serous exudate. Mild odor noted. Borders are macerated with surrounding maroon and indurated borders. MASD noted to Mons-pubis outer aspects of R and L buttocks. Perineum and bilat ischial tuberosities. Affected areas mentioned are erythematous, macerated with scattered satellite lesions. Non-Blanchable erythema without induration or fluctuance R and L Heels. Skin assessed under tracheal collar and no evidence of skin breakdown noted. Assessed pt and necrotic base of Sacral wound crosshatched by Md. Unstageable Sacral Pressure Injury (L)9.8cm x (W)7cm. 90% dry necrotic cap ,10% lj borders. Edges are adherent to base of wound. Periwound is pink and dry. No odor or exudate noted. Small external haemorrhoid with small amt bleeding noted. R and L heels are both blanchable. No new skin concerns noted. Wound Tx are effective and continued as ordered . All wound prevention protocols continued as care-planned. Pt has an APM/DANIEL Mattress overlay and is being positioned as per tolerance and within protocols. s/p excisional debridement of stage 4 decubitus ulcer Tx.Plan: Cleanse Sacral wound with Saline. Apply TheraHoney. Apply Moisture Barrier Paste periwound. Cover with Optifoam Drsg. Change Daily and prn. Apply Moisture Barrier Paste to Mons Pubis, Perineum and buttocks with each Incontinence care. Apply Cavilon Skin Barrier to Both heels and Malleoli. Cover each site with Optifoam Drsg. Change every 7 days and prn. Reposition at least every 2hours or as tolerated. Off-load heels with Pillow. Reposition at least every 2hours or as tolerated. APM/DANIEL mattress overlay. Adrian Gar Jun 24, 2020 15:22
--- NOTE | 2020-06-24 15:52 | Diagnostic Imaging Report ---
Indication: Upper extremity edema Technique: Grayscale and duplex images of the bilateral upper extremity veins Comparison: none Findings: Exam is somewhat limited, due to suboptimal ability of the patient to cooperate. The left radial and ulnar veins, left internal jugular vein and subclavian vein could not be imaged. As regards the visible venous segments, bilaterally grayscale and duplex images demonstrate no evidence of intraluminal thrombus. Normal phasic Doppler waveforms. Normal compressibility Impression: Somewhat limited exam, as described. Unable to visualize the left radial, ulnar, and internal jugular veins, and thrombosis of these segments therefore cannot be ruled out. Otherwise negative for evidence of upper extremity venous thrombosis bilaterally
[2020-06-24 16:00] VITALS: BP 156/84
--- NOTE | 2020-06-24 19:13 | Brief Operative Note ---
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
--- NOTE | 2020-06-24 19:17 | Diagnostic Imaging Report ---
Indications: Needs long-term IV access Technique: Procedure performed at bedside. Procedural timeout performed. Ultrasound confirms patent compressible left basilic vein. Total sterile technique, including sterile probe cover and sterile gel, sterile gloves, hand hygiene, hat, mask,, sterile gown, large sterile drape, and preparation with 2% chlorhexidine utilized. Local anesthesia with 1% lidocaine. Under real-time ultrasound guidance, puncture left basilic vein using 21-gauge needle, passage 0.018 guidewire, exchange for 4 [place] peel-away sheath. 4 [place] Bard dual-lumen power PICC cut to 44 cm. It was inserted through the peel-away sheath. Peel-away sheath and guidewire removed. Catheter fixed to the skin. Both catheter ports aspirated and flushed. Patient tolerated procedure well, without immediate complication. Followup chest x-ray obtained, documents catheter tip position at the high right atrium Impression: Successful bedside placement of PICC under sonographic guidance, as described above.
[2020-06-24 20:00] VITALS: BP 144/76
[2020-06-24] MEDS: Dyna-Hex 2% Top Sol 2oz TOPIC SCH (20:39)
[2020-06-25] VITALS (7 sets, daily range): BP systolic 124–163; BP diastolic 52–86
--- NOTE | 2020-06-25 02:04 | Cardiology Progress Note ---
Subjective DATE OF SERVICE: Jun 24, 2020 On T-collar - still with significant peripheral leukocytosis and worsening congestion. UA still with TNTC white and red cells; culture grew wicho and diflucan added. Continued with abnormal renal function Still with hematuria; anticoagulation on hold. BP range elevated at times, but improving Glucose trend continues to be elevated. Sputum culture A.baumanni Monitor: Sinus with PAFIb and short runs of aberrancy. CT scan: Pulmonary edema and pleural effusion Venous duplex of UE's negative for DVT 2D Echo (04/2020) LVEF was 35% Objective Last 24 Hour Vital Signs Date Time Temp Pulse Resp B/P (MAP) Pulse Ox O2 Delivery O2 Flow Rate FiO2 06/25/20 01:34 99 T-Piece 6.0 28 06/24/20 21:00 Trach Collar 5.0 06/24/20 20:40 67 144/76 06/24/20 19:32 70 06/24/20 19:20 99 T-Piece 6.0 28 06/24/20 18:49 156/84 06/24/20 18:45 156/84 06/24/20 16:00 96.6 71 21 156/84 (108) 100 06/24/20 15:26 68 06/24/20 13:58 98 T-Piece 6.0 28 06/24/20 12:59 167/86 06/24/20 12:59 167/86 06/24/20 12:59 82 167/86 06/24/20 12:00 96.3 82 23 167/86 (113) 97 06/24/20 11:53 81 06/24/20 09:50 149/85 06/24/20 08:32 Trach Collar 5.0 06/24/20 08:00 97.0 80 22 149/85 (106) 100 06/24/20 07:53 71 06/24/20 07:52 100 T-Piece 6.0 28 06/24/20 05:59 83 149/84 06/24/20 04:00 98.0 78 21 149/84 (105) 100 06/24/20 03:34 76 ROS: no change from my assessment of 05/25/20 - remains unobtainable from patient HEENT: normal ENT inspection, Thin Trach secretions RHYTHM: NSR, PACs LUNGS: diminished breath sounds - left, bilateral rhonchi CARDIAC: normal rate, regular rhythm, normal S1 and S2, arrhythmia ABDOMEN: normal bowel sounds, non tender, soft, G-Tube intact EXTREMITIES: trace edema, +2 edema - extremities, other - sacral decub. noncommunicative Laboratory Tests Test 06/24/20 05:45 06/24/20 08:30 06/24/20 12:17 06/24/20 18:33 POC Whole Blood Glucose 123 MG/DL (74-106) H 184 MG/DL (74-106) H Pending White Blood Count 17.0 K/UL (4.8-10.8) H Red Blood Count 4.07 M/UL (4.20-5.40) L Hemoglobin 10.5 G/DL (12.0-16.0) L Hematocrit 32.1 % (37.0-47.0) L Mean Corpuscular Volume 79 FL (80-99) L Mean Corpuscular Hemoglobin 25.7 PG (27.0-31.0) L Mean Corpuscular Hemoglobin Concent 32.7 G/DL (32.0-36.0) Red Cell Distribution Width 16.7 % (11.6-14.8) H Platelet Count 194 K/UL (150-450) Mean Platelet Volume 7.5 FL (6.5-10.1) Neutrophils (%) (Auto) % (45.0-75.0) Lymphocytes (%) (Auto) % (20.0-45.0) Monocytes (%) (Auto) % (1.0-10.0) Eosinophils (%) (Auto) % (0.0-3.0) Basophils (%) (Auto) % (0.0-2.0) Differential Total Cells Counted 100 Neutrophils % (Manual) 88 % (45-75) H Lymphocytes % (Manual) 9 % (20-45) L Monocytes % (Manual) 3 % (1-10) Eosinophils % (Manual) 0 % (0-3) Basophils % (Manual) 0 % (0-2) Band Neutrophils 0 % (0-8) Platelet Estimate Adequate Platelet Morphology Normal Hypochromasia 1+ Anisocytosis 1+ Microcytosis 1+ Sodium Level 140 MMOL/L (136-145) Potassium Level 4.6 MMOL/L (3.5-5.1) Chloride Level 106 MMOL/L (98-107) Carbon Dioxide Level 22 MMOL/L (21-32) Anion Gap 12 mmol/L (5-15) Blood Urea Nitrogen 43 mg/dL (7-18) H Creatinine 1.0 MG/DL (0.55-1.30) Estimat Glomerular Filtration Rate 54.3 mL/min (>60) Glucose Level 146 MG/DL (74-106) H Calcium Level 8.7 MG/DL (8.5-10.1) Magnesium Level 2.2 MG/DL (1.8-2.4) Test 06/24/20 20:47 POC Whole Blood Glucose 107 MG/DL (74-106) H Assessment/Plan Assessment/Plan [facility] acquired fungal cystitis with resolving hematuria Left pleural effusion Acute myocardial ischemia with possible NSTE myocardial infarction Sepsis Respiratory failure Hypertension/HHD with elev BP Parox AFib Conduction system disease with bifasc block Ac/chr systolic CHF Low lipid parameters NSVT IRDM with hyperglycemia still Hypomagnesemia Contaminant in positive blood cultures Osteomyelitis Acute renal faillure improved with hydration Hyperkalemia resolved Worsening edema due to low colloid osmotic pressures Resp Rx Antibiotics per ID bookkeeping assistant Continue off IVF; reassess for diuresis and resume ACEi rx. Anticoagulation resumed; observe for worsening bleeding. Titrate CV regimen based on clinical parameters - continue current antianginal regimen, including beta pietro. No need for statin Titrate insulin rx - advancing levemir as needed Wound care Monitor hemoglobin. REMAINS HIGH RISK John Heard MD Jun 25, 2020 02:04
[2020-06-25 05:21] LABS: ANION GAP 9 mmol/L (5-15); BLOOD UREA NITROGEN 43 mg/dL (7-18); CALCIUM 8.2 MG/DL (8.5-10.1); CARBON DIOXIDE 24 MMOL/L (21-32); CHLORIDE 106 MMOL/L (98-107); CREATININE 0.9 MG/DL (0.55-1.30); POTASSIUM 4.1 MMOL/L (3.5-5.1); SODIUM 139 MMOL/L (136-145)
[2020-06-25] MEDS: NovoLOG Insulin Flexpen SUBQ SCH ×4 (06:00→17:31)
[2020-06-25] MEDS: Metoprolol Tartrate 50mg tab GT SCH ×3 (06:54→21:06)
[2020-06-25] MEDS: Eliquis 5mg tablet GT SCH ×2 (09:22→17:31)
[2020-06-25] MEDS: Ascorbic Acid 500mg tab GT SCH (09:23)
[2020-06-25] MEDS: Lisinopril 20mg tab GT SCH (09:24)
[2020-06-25] MEDS: Fluconazole 100mg tab GT SCH (09:24)
[2020-06-25] MEDS: Levemir Flexpen SUBQ SCH ×2 (09:26→21:08)
--- NOTE | 2020-06-25 10:27 | Pulmonology Progress Note ---
Subjective ROS Limited/Unobtainable: Yes Constitutional: Denies: fever Allergies: Coded Allergies: No Known Allergies (Unverified , 05/15/20) Subjective care noted moved to [facility] heme noted Objective Last 24 Hour Vital Signs Date Time Temp Pulse Resp B/P (MAP) Pulse Ox O2 Delivery O2 Flow Rate FiO2 06/25/20 09:24 127/65 06/25/20 09:24 127/65 06/25/20 08:00 62 06/25/20 08:00 97.5 63 18 127/65 (85) 100 06/25/20 06:54 65 152/78 06/25/20 03:45 97.9 65 20 152/78 (102) 100 06/25/20 03:39 71 06/25/20 01:34 99 T-Piece 6.0 28 06/25/20 00:00 97.2 65 19 148/76 (100) 100 06/25/20 00:00 68 06/24/20 21:00 Trach Collar 5.0 06/24/20 20:40 67 144/76 06/24/20 20:00 97.3 67 22 144/76 (98) 100 06/24/20 19:32 70 06/24/20 19:20 99 T-Piece 6.0 28 06/24/20 18:49 156/84 06/24/20 18:45 156/84 06/24/20 16:00 96.6 71 21 156/84 (108) 100 06/24/20 15:26 68 06/24/20 13:58 98 T-Piece 6.0 28 06/24/20 12:59 167/86 06/24/20 12:59 167/86 06/24/20 12:59 82 167/86 06/24/20 12:00 96.3 82 23 167/86 (113) 97 06/24/20 11:53 81 Intake and Output 06/24/20 06/25/20 19:00 07:00 Intake Total 450 ml 50 ml Output Total 600 ml 650 ml Balance -150 ml -600 ml Tube Feeding 450 ml 50 ml Output Urine Total 600 ml 650 ml Objective WDWN NAD trach reduced breath sounds bilaterally without rhonchi [id number] without MRG NABS nontender GT no CCE withdrawn Laboratory Tests 06/24/20 12:17: POC Whole Blood Glucose 184H 06/24/20 18:33: POC Whole Blood Glucose [Pending] 06/24/20 20:47: POC Whole Blood Glucose 107H 06/25/20 04:00: Sodium Level 139, Potassium Level 4.1, Chloride Level 106, Carbon Dioxide Level 24, Anion Gap 9, Blood Urea Nitrogen 43H, Creatinine 0.9, Estimat Glomerular Filtration Rate > 60, Glucose Level 116H, Calcium Level 8.2L, Magnesium Level 2.1 06/25/20 06:08: POC Whole Blood Glucose [Pending] Current Medications Medications (Trade) Dose Ordered Sig/Cayden Route PRN Reason Start Time Stop Time Status Last Admin Dose Admin Apixaban (Eliquis) 5 mg BID GT 06/20/20 09:00 09/18/20 08:59 06/25/20 09:22 Ascorbic Acid (Vitamin C) 250 mg DAILY GT 05/28/20 09:00 06/27/20 08:59 06/25/20 09:23 Chlorhexidine Gluconate (Ayaka-Hex 2%) 1 applic DAILY@2000 TOPIC 06/23/20 20:00 09/21/20 19:59 06/24/20 20:39 Clonidine HCl (Catapres Tab) 0.1 mg Q4H PRN GT for sbp>150 06/20/20 08:15 09/01/20 08:59 06/24/20 18:49 Dextrose (Dextrose 50%) 25 ml Q30M PRN IV Hypoglycemia 05/26/20 07:30 08/24/20 07:29 Dextrose (Dextrose 50%) 50 ml Q30M PRN IV Hypoglycemia 05/26/20 07:30 08/24/20 07:29 Fluconazole (Diflucan) 100 mg DAILY GT 06/20/20 13:00 06/25/20 23:59 06/25/20 09:24 Heparin Sodium/ Sodium Chloride (Heparin 1000 units/500ml Premix) 1,000 unit ONCE PRN IV picc line placement 06/23/20 14:00 06/25/20 13:59 Insulin Aspart (NovoLOG) Q6HR SUBQ 05/26/20 12:00 08/24/20 11:59 06/24/20 12:19 Insulin Detemir (Levemir) 24 units EVERY 12 HOURS SUBQ 06/16/20 09:00 09/14/20 08:59 06/25/20 09:26 Isosorbide Dinitrate (Isordil) 20 mg THREE TIMES A DAY GT 06/02/20 13:00 07/02/20 12:59 06/25/20 09:24 Lansoprazole (Prevacid) 30 mg DAILY GT 06/24/20 09:00 07/24/20 08:59 06/25/20 09:23 Lidocaine HCl (Xylocaine 1% 30ml) 30 ml ONCE PRN INJ picc line placement 06/23/20 14:00 06/25/20 13:59 Linezolid (Zyvox) 600 mg EVERY 12 HOURS GT 06/19/20 21:00 07/05/20 23:59 06/25/20 09:23 Lisinopril (PriniviL) 20 mg DAILY GT 06/25/20 09:00 07/25/20 08:59 06/25/20 09:24 Metoprolol Tartrate (Lopressor) 50 mg EVERY 8 HOURS GT 05/28/20 22:00 08/26/20 21:59 06/25/20 06:54 Assessment/Plan Assessment/Plan IMPRESSION leukocytosis, worse Afib, chronic encephalopathy trach respiratory failure elevated troponin anemia bacteremia- staph fevers better hypertension osteo hematuria diabetes UTI with candiida PLAN wbc follow up heme eval and recommendations respiratory care; monitor in [facility] snf meds suction monitor cultures eliquis ID follow up and recommendations - regarding elevated wbc- on antibiotics impression, plan, and exam edited and reviewed in detail care discussed with Fernie Ledezma MD Jun 25, 2020 10:27
[2020-06-25 11:23] LABS: HEMATOCRIT 30.4 % (37.0-47.0); HEMOGLOBIN 9.9 G/DL (12.0-16.0); MEAN CORPUSCULAR VOLUME 78 FL (80-99); PLATELET COUNT 179 K/UL (150-450); RED BLOOD COUNT 3.88 M/UL (4.20-5.40); RED CELL DISTRIBUTION WIDTH 16.5 % (11.6-14.8); WHITE BLOOD COUNT 15.5 K/UL (4.8-10.8)
--- NOTE | 2020-06-25 19:52 | Surgery Progress Note ---
Surgery Progress Note Subjective Procedure Performed Excisional debridement of sacral decubitus ulcer 10 cm x 10 cm x 4 cm deep down to bone Additional Comments stable Objective Last 24 Hour Vital Signs Date Time Temp Pulse Resp B/P (MAP) Pulse Ox O2 Delivery O2 Flow Rate FiO2 06/25/20 18:31 88 149/86 (107) 06/25/20 17:31 163/78 06/25/20 17:31 163/78 06/25/20 16:45 97.7 81 18 163/78 (106) 98 06/25/20 16:00 76 06/25/20 13:27 75 126/72 06/25/20 13:07 96 T-Piece 6.0 28 06/25/20 12:50 126/72 06/25/20 12:00 Trach Collar 5.0 06/25/20 12:00 97.3 75 21 126/72 (90) 98 06/25/20 12:00 73 06/25/20 09:24 127/65 06/25/20 09:24 127/65 06/25/20 09:00 Trach Collar 5.0 06/25/20 08:00 62 06/25/20 08:00 97.5 63 18 127/65 (85) 100 06/25/20 07:26 100 T-Piece 6.0 28 06/25/20 06:54 65 152/78 06/25/20 03:45 97.9 65 20 152/78 (102) 100 06/25/20 03:39 71 06/25/20 01:34 99 T-Piece 6.0 28 06/25/20 00:00 97.2 65 19 148/76 (100) 100 06/25/20 00:00 68 06/24/20 21:00 Trach Collar 5.0 06/24/20 20:40 67 144/76 06/24/20 20:00 97.3 67 22 144/76 (98) 100 I&O Intake and Output 06/24/20 06/25/20 19:00 07:00 Intake Total 450 ml 75 ml Output Total 600 ml 650 ml Balance -150 ml -575 ml Tube Feeding 450 ml 75 ml Output Urine Total 600 ml 650 ml Dressing: saturated, other Cardiovascular: RSR Respiratory: clear, decreased breath sounds Abdomen: non-tender, present bowel sounds Extremities: no edema, no tenderness, no cyanosis Laboratory Tests Test 06/24/20 20:47 06/25/20 04:00 06/25/20 06:08 06/25/20 10:15 POC Whole Blood Glucose 107 MG/DL (74-106) H Pending Sodium Level 139 MMOL/L (136-145) Potassium Level 4.1 MMOL/L (3.5-5.1) Chloride Level 106 MMOL/L (98-107) Carbon Dioxide Level 24 MMOL/L (21-32) Anion Gap 9 mmol/L (5-15) Blood Urea Nitrogen 43 mg/dL (7-18) H Creatinine 0.9 MG/DL (0.55-1.30) Estimat Glomerular Filtration Rate > 60 mL/min (>60) Glucose Level 116 MG/DL (74-106) H Calcium Level 8.2 MG/DL (8.5-10.1) L Magnesium Level 2.1 MG/DL (1.8-2.4) White Blood Count 15.5 K/UL (4.8-10.8) H Red Blood Count 3.88 M/UL (4.20-5.40) L Hemoglobin 9.9 G/DL (12.0-16.0) L Hematocrit 30.4 % (37.0-47.0) L Mean Corpuscular Volume 78 FL (80-99) L Mean Corpuscular Hemoglobin 25.7 PG (27.0-31.0) L Mean Corpuscular Hemoglobin Concent 32.7 G/DL (32.0-36.0) Red Cell Distribution Width 16.5 % (11.6-14.8) H Platelet Count 179 K/UL (150-450) Mean Platelet Volume 7.7 FL (6.5-10.1) Neutrophils (%) (Auto) % (45.0-75.0) Lymphocytes (%) (Auto) % (20.0-45.0) Monocytes (%) (Auto) % (1.0-10.0) Eosinophils (%) (Auto) % (0.0-3.0) Basophils (%) (Auto) % (0.0-2.0) Differential Total Cells Counted 100 Neutrophils % (Manual) 87 % (45-75) H Lymphocytes % (Manual) 6 % (20-45) L Monocytes % (Manual) 5 % (1-10) Eosinophils % (Manual) 0 % (0-3) Basophils % (Manual) 2 % (0-2) Band Neutrophils 0 % (0-8) Platelet Estimate Adequate Platelet Morphology Normal Hypochromasia 2+ Anisocytosis 1+ Microcytosis 1+ Test 06/25/20 12:17 POC Whole Blood Glucose 111 MG/DL (74-106) H Assessment Post-op Diagnosis Stage IV sacral decubitus ulcer Plan Problems: (1) Anemia (2) Sepsis Assessment & Plan: 74-year-old female with medical comorbidities present with leukocytosis anemia abnormal labs hypoalbuminemia failure to thrive malnutrition worsening decubitus ulcer admitted further care and management was prior on vancomycin now on IV antibiotics admitted and under monitoring. Full evaluation does not at the bedside and evaluation performed. Trach stable PEG tube stable skin deteriorating per her turgor worsening decubitus ulcer malnutrition continue tube feeds as tolerated continue antibiotics wounds unlikely etiology of patient's sepsis we will monitor and follow with recommendations trend labs thank you for letting participate patient's care improving 06/13 acute severe leukocytosis abx changed wound improved since debridement will monitor cont abx cont dressings trend labs wbc remains elevated unlikely related to wound heme input DAILY ESTIMATED NEEDS: Needs based on Wound, DM/ 57kg abw 25-30 kcals/kg 4825-1556 total kcals 1.25-1.8 g protein/kg 71-103 g total protein 20-25 mL/kg 1643-4553 total fluid mLs NUTRITION DIAGNOSIS: * Increased kcal/prot needs R/T wound healing as evidenced by pt admiteed w/ unstageable sacral wound, refer to full wound care eval. * Swallowing difficulty R/T dysphagia, respiratory status as evidenced by pt on T-collar, PEG dep. CURRENT TF:Glucerna 1.2 @ 50ml/hr x 24 hrs ENTERAL NUTRITION RECOMMENDATIONS: Glucerna 1.2 @ 50ml/hr x 24 hrs to provide 1200ml, 1440kcal, 72g, 966ml free water * Maintain current TF * HOB over 30 degrees/ water flush per MD ADDITIONAL RECOMMENDATIONS: * Calibrated bedscale wt -w/ added p200 mattress + pump * Wound healing: TF @ goal will provide 100% RDI Continue Vit C 250mg QD + add Endy BID via PEG * Monitor lytes closely w/ Lasix, replete as needed * Monitor BGs, rec increasing Levemir (POC glu 373 310) . (3) Elevated troponin (4) Pneumonia (5) Encounter for generalized patient complaints (6) Decubitus skin ulcer Assessment & Plan: Patient presented on admission with an Unstageable Sacral Pressure injury(L)9.8cm x (W)6.7cm. Base of wound is 80% necrotic ,20% mixed slough ,beefy red. Small amt serous exudate. Mild odor noted. Borders are macerated with surrounding maroon and indurated borders. MASD noted to Mons-pubis outer aspects of R and L buttocks. Perineum and bilat ischial tuberosities. Affected areas mentioned are erythematous, macerated with scattered satellite lesions. Non-Blanchable erythema without induration or fluctuance R and L Heels. Skin assessed under tracheal collar and no evidence of skin breakdown noted. Assessed pt and necrotic base of Sacral wound crosshatched by Md. Unstageable Sacral Pressure Injury (L)9.8cm x (W)7cm. 90% dry necrotic cap ,10% lj borders. Edges are adherent to base of wound. Periwound is pink and dry. No odor or exudate noted. Small external haemorrhoid with small amt bleeding noted. R and L heels are both blanchable. No new skin concerns noted. Wound Tx are effective and continued as ordered . All wound prevention protocols continued as care-planned. Pt has an APM/DANIEL Mattress overlay and is being positioned as per tolerance and within protocols. s/p excisional debridement of stage 4 decubitus ulcer Tx.Plan: Cleanse Sacral wound with Saline. Apply TheraHoney. Apply Moisture Barrier Paste periwound. Cover with Optifoam Drsg. Change Daily and prn. Apply Moisture Barrier Paste to Mons Pubis, Perineum and buttocks with each Incontinence care. Apply Cavilon Skin Barrier to Both heels and Malleoli. Cover each site with Optifoam Drsg. Change every 7 days and prn. Reposition at least every 2hours or as tolerated. Off-load heels with Pillow. Reposition at least every 2hours or as tolerated. APM/DANIEL mattress overlay. Adrian Gar Jun 25, 2020 19:52
--- NOTE | 2020-06-25 21:00 | Cardiology Progress Note ---
Subjective DATE OF SERVICE: Jun 25, 2020 On T-collar - now with decreasing leukocytosis and congestion. UA had TNTC white and red cells; culture grew wicho and diflucan added. Continued with abnormal renal function Still with hematuria; anticoagulation on hold. BP range elevated at times, but improving Glucose trend continues to be elevated. Sputum culture A.baumanni Monitor: Sinus with PAFIb and short runs of aberrancy. CT scan: Pulmonary edema and pleural effusion Venous duplex of UE's negative for DVT 2D Echo (04/2020) LVEF was 35% Objective Last 24 Hour Vital Signs Date Time Temp Pulse Resp B/P (MAP) Pulse Ox O2 Delivery O2 Flow Rate FiO2 06/25/20 19:56 97 T-Piece 6.0 28 06/25/20 18:31 88 149/86 (107) 06/25/20 17:31 163/78 06/25/20 17:31 163/78 06/25/20 16:45 97.7 81 18 163/78 (106) 98 06/25/20 16:00 76 06/25/20 13:27 75 126/72 06/25/20 13:07 96 T-Piece 6.0 28 06/25/20 12:50 126/72 06/25/20 12:00 Trach Collar 5.0 06/25/20 12:00 97.3 75 21 126/72 (90) 98 06/25/20 12:00 73 06/25/20 09:24 127/65 06/25/20 09:24 127/65 06/25/20 09:00 Trach Collar 5.0 06/25/20 08:00 62 06/25/20 08:00 97.5 63 18 127/65 (85) 100 06/25/20 07:26 100 T-Piece 6.0 28 06/25/20 06:54 65 152/78 06/25/20 03:45 97.9 65 20 152/78 (102) 100 06/25/20 03:39 71 06/25/20 01:34 99 T-Piece 6.0 28 06/25/20 00:00 97.2 65 19 148/76 (100) 100 06/25/20 00:00 68 06/24/20 21:00 Trach Collar 5.0 ROS: no change from my assessment of 05/25/20 - remains unobtainable from patient HEENT: normal ENT inspection, Thin Trach secretions RHYTHM: NSR, PACs LUNGS: diminished breath sounds - left, bilateral rhonchi CARDIAC: normal rate, regular rhythm, normal S1 and S2, arrhythmia ABDOMEN: normal bowel sounds, non tender, soft, G-Tube intact EXTREMITIES: trace edema, +2 edema - extremities, other - sacral decub. noncommunicative Laboratory Tests Test 06/25/20 04:00 06/25/20 06:08 06/25/20 10:15 06/25/20 12:17 Sodium Level 139 MMOL/L (136-145) Potassium Level 4.1 MMOL/L (3.5-5.1) Chloride Level 106 MMOL/L (98-107) Carbon Dioxide Level 24 MMOL/L (21-32) Anion Gap 9 mmol/L (5-15) Blood Urea Nitrogen 43 mg/dL (7-18) H Creatinine 0.9 MG/DL (0.55-1.30) Estimat Glomerular Filtration Rate > 60 mL/min (>60) Glucose Level 116 MG/DL (74-106) H Calcium Level 8.2 MG/DL (8.5-10.1) L Magnesium Level 2.1 MG/DL (1.8-2.4) POC Whole Blood Glucose Pending 111 MG/DL (74-106) H White Blood Count 15.5 K/UL (4.8-10.8) H Red Blood Count 3.88 M/UL (4.20-5.40) L Hemoglobin 9.9 G/DL (12.0-16.0) L Hematocrit 30.4 % (37.0-47.0) L Mean Corpuscular Volume 78 FL (80-99) L Mean Corpuscular Hemoglobin 25.7 PG (27.0-31.0) L Mean Corpuscular Hemoglobin Concent 32.7 G/DL (32.0-36.0) Red Cell Distribution Width 16.5 % (11.6-14.8) H Platelet Count 179 K/UL (150-450) Mean Platelet Volume 7.7 FL (6.5-10.1) Neutrophils (%) (Auto) % (45.0-75.0) Lymphocytes (%) (Auto) % (20.0-45.0) Monocytes (%) (Auto) % (1.0-10.0) Eosinophils (%) (Auto) % (0.0-3.0) Basophils (%) (Auto) % (0.0-2.0) Differential Total Cells Counted 100 Neutrophils % (Manual) 87 % (45-75) H Lymphocytes % (Manual) 6 % (20-45) L Monocytes % (Manual) 5 % (1-10) Eosinophils % (Manual) 0 % (0-3) Basophils % (Manual) 2 % (0-2) Band Neutrophils 0 % (0-8) Platelet Estimate Adequate Platelet Morphology Normal Hypochromasia 2+ Anisocytosis 1+ Microcytosis 1+ Test 06/25/20 20:30 POC Whole Blood Glucose 112 MG/DL (74-106) H Assessment/Plan Assessment/Plan [facility] acquired fungal cystitis with resolving hematuria Left pleural effusion Acute myocardial ischemia with possible NSTE myocardial infarction Sepsis Respiratory failure Hypertension/HHD with elev BP Parox AFib Conduction system disease with bifasc block Ac/chr systolic CHF Low lipid parameters NSVT IRDM with hyperglycemia still Hypomagnesemia Contaminant in positive blood cultures Osteomyelitis Acute renal faillure improved with hydration Hyperkalemia resolved Worsening edema due to low colloid osmotic pressures Resp Rx Antibiotics per ID offset press operator helper Continue off IVF, trend BNP, reassess for diuresis, and titrate ACEi rx. Anticoagulation resumed; observe for worsening bleeding. Titrate CV regimen based on clinical parameters - continue current antianginal regimen, including beta pietro. No need for statin Titrate insulin rx - advancing levemir as needed Wound care Monitor hemoglobin. REMAINS HIGH RISK John Heard MD Jun 25, 2020 21:00
[2020-06-25] MEDS: Dyna-Hex 2% Top Sol 2oz TOPIC SCH (21:05)
[2020-06-26] VITALS: BP 129/79
[2020-06-26 04:00] VITALS: BP 111/60
[2020-06-26] MEDS: NovoLOG Insulin Flexpen SUBQ SCH ×4 (06:00→18:00)
[2020-06-26] MEDS: Metoprolol Tartrate 50mg tab GT SCH ×3 (06:00→21:06)
[2020-06-26 07:12] LABS: BASOPHILS % (AUTO) 0.6 % (0.0-2.0); EOSINOPHILS % (AUTO) 0.7 % (0.0-3.0); HEMATOCRIT 24.2 % (37.0-47.0); HEMOGLOBIN 8.1 G/DL (12.0-16.0); LYMPHOCYTES % (AUTO) 8.1 % (20.0-45.0); MEAN CORPUSCULAR VOLUME 77 FL (80-99); MONOCYTES % (AUTO) 5.9 % (1.0-10.0); NEUTROPHILS % (AUTO) 84.7 % (45.0-75.0); PLATELET COUNT 158 K/UL (150-450); RED BLOOD COUNT 3.13 M/UL (4.20-5.40); RED CELL DISTRIBUTION WIDTH 16.2 % (11.6-14.8); WHITE BLOOD COUNT 13.9 K/UL (4.8-10.8)
[2020-06-26 07:44] LABS: ALANINE AMINOTRANSFERASE 14 U/L (12-78); ALBUMIN 1.8 G/DL (3.4-5.0); ALBUMIN/GLOBULIN RATIO 0.5 (1.0-2.7); ALKALINE PHOSPHATASE 81 U/L (46-116); ANION GAP 7 mmol/L (5-15); ASPARTATE AMINO TRANSFERASE 12 U/L (15-37); BILIRUBIN,TOTAL 0.3 MG/DL (0.2-1.0); BLOOD UREA NITROGEN 38 mg/dL (7-18); CALCIUM 8.2 MG/DL (8.5-10.1); CARBON DIOXIDE 25 MMOL/L (21-32); CHLORIDE 107 MMOL/L (98-107); CREATININE 0.9 MG/DL (0.55-1.30); POTASSIUM 4.1 MMOL/L (3.5-5.1); SODIUM 139 MMOL/L (136-145)
--- NOTE | 2020-06-26 07:56 | Surgery Progress Note ---
Surgery Progress Note Subjective Procedure Performed Excisional debridement of sacral decubitus ulcer 10 cm x 10 cm x 4 cm deep down to bone Additional Comments wbc improving h/h noted no n/v ill appearing worsening dti and wound declined since debridement Objective Last 24 Hour Vital Signs Date Time Temp Pulse Resp B/P (MAP) Pulse Ox O2 Delivery O2 Flow Rate FiO2 06/26/20 06:00 71 111/66 06/26/20 04:00 98.4 71 18 111/60 (77) 100 06/26/20 04:00 73 06/26/20 00:38 98 T-Piece 6.0 28 06/26/20 00:00 98.1 69 16 129/79 (96) 96 06/26/20 00:00 69 06/25/20 21:06 62 124/52 06/25/20 21:00 Trach Collar 5.0 06/25/20 20:00 97.2 62 18 124/52 (76) 96 06/25/20 20:00 75 06/25/20 19:56 97 T-Piece 6.0 28 06/25/20 18:31 88 149/86 (107) 06/25/20 17:31 163/78 06/25/20 17:31 163/78 06/25/20 16:45 97.7 81 18 163/78 (106) 98 06/25/20 16:00 76 06/25/20 13:27 75 126/72 06/25/20 13:07 96 T-Piece 6.0 28 06/25/20 12:50 126/72 06/25/20 12:00 Trach Collar 5.0 06/25/20 12:00 97.3 75 21 126/72 (90) 98 06/25/20 12:00 73 06/25/20 09:24 127/65 06/25/20 09:24 127/65 06/25/20 09:00 Trach Collar 5.0 06/25/20 08:00 62 06/25/20 08:00 97.5 63 18 127/65 (85) 100 I&O Intake and Output 06/25/20 06/26/20 19:00 07:00 Intake Total 590 ml Output Total 400 ml 400 ml Balance 190 ml -400 ml Free Water 160 ml Tube Feeding 250 ml Other 180 ml Output Urine Total 400 ml 400 ml # Voids 1 # Bowel Movements 2 1 Dressing: saturated Cardiovascular: RSR Respiratory: decreased breath sounds Abdomen: soft, non-tender, present bowel sounds Extremities: no tenderness, no cyanosis Laboratory Tests Test 06/25/20 10:15 06/25/20 12:17 06/25/20 17:29 06/25/20 20:30 White Blood Count 15.5 K/UL (4.8-10.8) H Red Blood Count 3.88 M/UL (4.20-5.40) L Hemoglobin 9.9 G/DL (12.0-16.0) L Hematocrit 30.4 % (37.0-47.0) L Mean Corpuscular Volume 78 FL (80-99) L Mean Corpuscular Hemoglobin 25.7 PG (27.0-31.0) L Mean Corpuscular Hemoglobin Concent 32.7 G/DL (32.0-36.0) Red Cell Distribution Width 16.5 % (11.6-14.8) H Platelet Count 179 K/UL (150-450) Mean Platelet Volume 7.7 FL (6.5-10.1) Neutrophils (%) (Auto) % (45.0-75.0) Lymphocytes (%) (Auto) % (20.0-45.0) Monocytes (%) (Auto) % (1.0-10.0) Eosinophils (%) (Auto) % (0.0-3.0) Basophils (%) (Auto) % (0.0-2.0) Differential Total Cells Counted 100 Neutrophils % (Manual) 87 % (45-75) H Lymphocytes % (Manual) 6 % (20-45) L Monocytes % (Manual) 5 % (1-10) Eosinophils % (Manual) 0 % (0-3) Basophils % (Manual) 2 % (0-2) Band Neutrophils 0 % (0-8) Platelet Estimate Adequate Platelet Morphology Normal Hypochromasia 2+ Anisocytosis 1+ Microcytosis 1+ POC Whole Blood Glucose 111 MG/DL (74-106) H 105 MG/DL (74-106) 112 MG/DL (74-106) H Test 06/26/20 00:17 06/26/20 05:50 06/26/20 06:11 06/26/20 06:41 POC Whole Blood Glucose 93 MG/DL (74-106) Pending 59 MG/DL (74-106) L White Blood Count 13.9 K/UL (4.8-10.8) H Red Blood Count 3.13 M/UL (4.20-5.40) L Hemoglobin 8.1 G/DL (12.0-16.0) L Hematocrit 24.2 % (37.0-47.0) L Mean Corpuscular Volume 77 FL (80-99) L Mean Corpuscular Hemoglobin 25.8 PG (27.0-31.0) L Mean Corpuscular Hemoglobin Concent 33.4 G/DL (32.0-36.0) Red Cell Distribution Width 16.2 % (11.6-14.8) H Platelet Count 158 K/UL (150-450) Mean Platelet Volume 8.4 FL (6.5-10.1) Neutrophils (%) (Auto) 84.7 % (45.0-75.0) H Lymphocytes (%) (Auto) 8.1 % (20.0-45.0) L Monocytes (%) (Auto) 5.9 % (1.0-10.0) Eosinophils (%) (Auto) 0.7 % (0.0-3.0) Basophils (%) (Auto) 0.6 % (0.0-2.0) Sodium Level 139 MMOL/L (136-145) Potassium Level 4.1 MMOL/L (3.5-5.1) Chloride Level 107 MMOL/L (98-107) Carbon Dioxide Level 25 MMOL/L (21-32) Anion Gap 7 mmol/L (5-15) Blood Urea Nitrogen 38 mg/dL (7-18) H Creatinine 0.9 MG/DL (0.55-1.30) Estimat Glomerular Filtration Rate > 60 mL/min (>60) Glucose Level 54 MG/DL (74-106) L Calcium Level 8.2 MG/DL (8.5-10.1) L Magnesium Level 1.9 MG/DL (1.8-2.4) Total Bilirubin 0.3 MG/DL (0.2-1.0) Aspartate Amino Transf (AST/SGOT) 12 U/L (15-37) L Alanine Aminotransferase (ALT/SGPT) 14 U/L (12-78) Alkaline Phosphatase 81 U/L (46-116) Pro-B-Type Natriuretic Peptide 64604 pg/mL (0-125) H Total Protein 5.4 G/DL (6.4-8.2) L Albumin 1.8 G/DL (3.4-5.0) L Globulin 3.6 g/dL Albumin/Globulin Ratio 0.5 (1.0-2.7) L Test 06/26/20 07:39 POC Whole Blood Glucose 110 MG/DL (74-106) H Assessment Post-op Diagnosis Stage IV sacral decubitus ulcer Plan Problems: (1) Anemia (2) Sepsis Assessment & Plan: 74-year-old female with medical comorbidities present with leukocytosis anemia abnormal labs hypoalbuminemia failure to thrive malnutrition worsening decubitus ulcer admitted further care and management was prior on vancomycin now on IV antibiotics admitted and under monitoring. Full evaluation does not at the bedside and evaluation performed. Trach stable PEG tube stable skin deteriorating per her turgor worsening decubitus ulcer malnutrition continue tube feeds as tolerated continue antibiotics wounds unlikely etiology of patient's sepsis we will monitor and follow with recommendations trend labs thank you for letting participate patient's care improving 06/13 acute severe leukocytosis abx changed wound improved since debridement will monitor cont abx cont dressings trend labs wbc remains elevated unlikely related to wound heme input DAILY ESTIMATED NEEDS: Needs based on Wound, DM/ 57kg abw 25-30 kcals/kg 1405-2381 total kcals 1.25-1.8 g protein/kg 71-103 g total protein 20-25 mL/kg 0996-0463 total fluid mLs NUTRITION DIAGNOSIS: * Increased kcal/prot needs R/T wound healing as evidenced by pt admiteed w/ unstageable sacral wound, refer to full wound care eval. * Swallowing difficulty R/T dysphagia, respiratory status as evidenced by pt on T-collar, PEG dep. CURRENT TF:Glucerna 1.2 @ 50ml/hr x 24 hrs ENTERAL NUTRITION RECOMMENDATIONS: Glucerna 1.2 @ 50ml/hr x 24 hrs to provide 1200ml, 1440kcal, 72g, 966ml free water * Maintain current TF * HOB over 30 degrees/ water flush per MD ADDITIONAL RECOMMENDATIONS: * Calibrated bedscale wt -w/ added p200 mattress + pump * Wound healing: TF @ goal will provide 100% RDI Continue Vit C 250mg QD + add Endy BID via PEG * Monitor lytes closely w/ Lasix, replete as needed * Monitor BGs, rec increasing Levemir (POC glu 373 310) . (3) Elevated troponin (4) Pneumonia (5) Encounter for generalized patient complaints (6) Decubitus skin ulcer Assessment & Plan: Patient presented on admission with an Unstageable Sacral Pressure injury(L)9.8cm x (W)6.7cm. Base of wound is 80% necrotic ,20% mixed slough ,beefy red. Small amt serous exudate. Mild odor noted. Borders are macerated with surrounding maroon and indurated borders. MASD noted to Mons-pubis outer aspects of R and L buttocks. Perineum and bilat ischial tuberosities. Affected areas mentioned are erythematous, macerated with scattered satellite lesions. Non-Blanchable erythema without induration or fluctuance R and L Heels. Skin assessed under tracheal collar and no evidence of skin breakdown noted. Assessed pt and necrotic base of Sacral wound crosshatched by Md. Unstageable Sacral Pressure Injury (L)9.8cm x (W)7cm. 90% dry necrotic cap ,10% lj borders. Edges are adherent to base of wound. Periwound is pink and dry. No odor or exudate noted. Small external haemorrhoid with small amt bleeding noted. R and L heels are both blanchable. No new skin concerns noted. Wound Tx are effective and continued as ordered . All wound prevention protocols continued as care-planned. Pt has an APM/DANIEL Mattress overlay and is being positioned as per tolerance and within protocols. s/p excisional debridement of stage 4 decubitus ulcer periwound macerated unfortunately inevitable decline given condition wound has declined since debridement discussed with nursing staff Tx.Plan: Cleanse Sacral wound with Saline. Apply TheraHoney. Apply Moisture Barrier Paste periwound. Cover with Optifoam Drsg. Change Daily and prn. Apply Moisture Barrier Paste to Mons Pubis, Perineum and buttocks with each Incontinence care. Apply Cavilon Skin Barrier to Both heels and Malleoli. Cover each site with Optifoam Drsg. Change every 7 days and prn. Reposition at least every 2hours or as tolerated. Off-load heels with Pillow. Reposition at least every 2hours or as tolerated. APM/DANIEL mattress overlay. Adrian Gar Jun 26, 2020 07:56
[2020-06-26 08:00] VITALS: BP 164/70
[2020-06-26] MEDS: Levemir Flexpen SUBQ SCH ×2 (09:00→21:00)
--- NOTE | 2020-06-26 09:29 | Pulmonology Progress Note ---
Subjective ROS Limited/Unobtainable: Yes Constitutional: Denies: fever Allergies: Coded Allergies: No Known Allergies (Unverified , 05/15/20) Subjective care noted moved to tele wbc improving heme noted Objective Last 24 Hour Vital Signs Date Time Temp Pulse Resp B/P (MAP) Pulse Ox O2 Delivery O2 Flow Rate FiO2 06/26/20 08:46 Trach Collar 5.0 06/26/20 08:00 98.1 68 20 164/70 (101) 100 06/26/20 06:00 71 111/66 06/26/20 04:00 98.4 71 18 111/60 (77) 100 06/26/20 04:00 73 06/26/20 00:38 98 T-Piece 6.0 28 06/26/20 00:00 98.1 69 16 129/79 (96) 96 06/26/20 00:00 69 06/25/20 21:06 62 124/52 06/25/20 21:00 Trach Collar 5.0 06/25/20 20:00 97.2 62 18 124/52 (76) 96 06/25/20 20:00 75 06/25/20 19:56 97 T-Piece 6.0 28 06/25/20 18:31 88 149/86 (107) 06/25/20 17:31 163/78 06/25/20 17:31 163/78 06/25/20 16:45 97.7 81 18 163/78 (106) 98 06/25/20 16:00 76 06/25/20 13:27 75 126/72 06/25/20 13:07 96 T-Piece 6.0 28 06/25/20 12:50 126/72 06/25/20 12:00 Trach Collar 5.0 06/25/20 12:00 97.3 75 21 126/72 (90) 98 06/25/20 12:00 73 Intake and Output 06/25/20 06/26/20 19:00 07:00 Intake Total 590 ml Output Total 400 ml 400 ml Balance 190 ml -400 ml Free Water 160 ml Tube Feeding 250 ml Other 180 ml Output Urine Total 400 ml 400 ml # Voids 1 # Bowel Movements 2 1 Objective WDWN NAD trach reduced breath sounds bilaterally without rhonchi [id number] without MRG NABS nontender GT no CCE withdrawn Laboratory Tests 06/25/20 10:15: White Blood Count 15.5H, Red Blood Count 3.88L, Hemoglobin 9.9L, Hematocrit 30.4L, Mean Corpuscular Volume 78L, Mean Corpuscular Hemoglobin 25.7L, Mean Corpuscular Hemoglobin Concent 32.7, Red Cell Distribution Width 16.5H, Platelet Count 179, Mean Platelet Volume 7.7, Neutrophils (%) (Auto) , Lymphocytes (%) (Auto) , Monocytes (%) (Auto) , Eosinophils (%) (Auto) , Basophils (%) (Auto) , Differential Total Cells Counted 100, Neutrophils % (Manual) 87H, Lymphocytes % (Manual) 6L, Monocytes % (Manual) 5, Eosinophils % (Manual) 0, Basophils % (Manual) 2, Band Neutrophils 0, Platelet Estimate Adequate, Platelet Morphology Normal, Hypochromasia 2+, Anisocytosis 1+, Microcytosis 1+ 06/25/20 12:17: POC Whole Blood Glucose 111H 06/25/20 17:29: POC Whole Blood Glucose 105 06/25/20 20:30: POC Whole Blood Glucose 112H 06/26/20 00:17: POC Whole Blood Glucose 93 06/26/20 05:50: White Blood Count 13.9H, Red Blood Count 3.13L, Hemoglobin 8.1L, Hematocrit 24.2 L, Mean Corpuscular Volume 77L, Mean Corpuscular Hemoglobin 25.8L, Mean Karin uscular Hemoglobin Concent 33.4, Red Cell Distribution Width 16.2H, Platelet Count 158, Mean Platelet Volume 8.4, Neutrophils (%) (Auto) 84.7H, Lymphocytes (%) (Auto) 8.1L, Monocytes (%) (Auto) 5.9, Eosinophils (%) (Auto) 0.7, Basophils (%) (Auto) 0.6, Sodium Level 139, Potassium Level 4.1, Chloride Level 107, Carbon Dioxide Level 25, Anion Gap 7, Blood Urea Nitrogen 38H, Creatinine 0.9, Estimat Glomerular Filtration Rate > 60, Glucose Level 54L, Calcium Level 8.2L, Magnesium Level 1.9, Total Bilirubin 0.3, Aspartate Amino Transf (AST/SGOT) 12L, Alanine Aminotransferase (ALT/SGPT) 14, Alkaline Phosphatase 81, Pro-B-Type Natriuretic Peptide 45952W, Total Protein 5.4L, Albumin 1.8L, Globulin 3.6, Albumin/Globulin Ratio 0.5L 06/26/20 06:11: POC Whole Blood Glucose [Pending] 06/26/20 06:41: POC Whole Blood Glucose 59L 06/26/20 07:39: POC Whole Blood Glucose 110H Current Medications Medications (Trade) Dose Ordered Sig/Cayden Route PRN Reason Start Time Stop Time Status Last Admin Dose Admin Apixaban (Eliquis) 5 mg BID GT 06/20/20 09:00 09/18/20 08:59 06/25/20 17:31 Ascorbic Acid (Vitamin C) 250 mg DAILY GT 05/28/20 09:00 06/27/20 08:59 06/25/20 09:23 Chlorhexidine Gluconate (Ayaka-Hex 2%) 1 applic DAILY@1999 TOPIC 06/23/20 20:00 09/21/20 19:59 06/25/20 21:05 Clonidine HCl (Catapres Tab) 0.1 mg Q4H PRN GT for sbp>150 06/20/20 08:15 09/01/20 08:59 06/25/20 17:31 Dextrose (Dextrose 50%) 25 ml Q30M PRN IV Hypoglycemia 05/26/20 07:30 08/24/20 07:29 Dextrose (Dextrose 50%) 50 ml Q30M PRN IV Hypoglycemia 05/26/20 07:30 08/24/20 07:29 06/26/20 06:51 Insulin Aspart (NovoLOG) Q6HR SUBQ 05/26/20 12:00 08/24/20 11:59 06/24/20 12:19 Insulin Detemir (Levemir) 24 units EVERY 12 HOURS SUBQ 06/16/20 09:00 09/14/20 08:59 06/25/20 21:08 Isosorbide Dinitrate (Isordil) 20 mg THREE TIMES A DAY GT 06/02/20 13:00 07/02/20 12:59 06/25/20 17:31 Lansoprazole (Prevacid) 30 mg DAILY GT 06/24/20 09:00 07/24/20 08:59 06/25/20 09:23 Linezolid (Zyvox) 600 mg EVERY 12 HOURS GT 06/19/20 21:00 07/05/20 23:59 06/25/20 21:06 Lisinopril (PriniviL) 20 mg DAILY GT 06/25/20 09:00 07/25/20 08:59 06/25/20 09:24 Metoprolol Tartrate (Lopressor) 50 mg EVERY 8 HOURS GT 05/28/20 22:00 08/26/20 21:59 06/25/20 21:06 Assessment/Plan Assessment/Plan IMPRESSION leukocytosis, worse Afib, chronic encephalopathy trach respiratory failure elevated troponin anemia bacteremia- staph fevers better hypertension osteo hematuria diabetes UTI with candiida PLAN wbc follow up heme eval noted respiratory care; monitor in tele snf meds suction monitor cultures eliquis ID follow up and recommendations -seems improved and may proceed with dc planning impression, plan, and exam edited and reviewed in detail care discussed with Fernie Ledezma MD Jun 26, 2020 09:29
[2020-06-26] MEDS: Ascorbic Acid 500mg tab GT SCH (09:40)
[2020-06-26] MEDS: Eliquis 5mg tablet GT SCH ×2 (09:41→17:59)
[2020-06-26] MEDS: Lisinopril 20mg tab GT SCH (09:42)
[2020-06-26 12:00] VITALS: BP 148/68
--- NOTE | 2020-06-26 12:57 | Infectious Diseases Prog Note ---
Assessment/Plan Assessment/Plan A: 1. sepsis. 2. Acinetobacter pneumonia treated 3. Leukocytosis improving 4. Diabetes. 5. Hypertension. 6. CVA. 7. Dementia. 8. COVID-19 test was negative. 9. 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 Hematuria 13. Candidal UTI treated PLAN: 1. Continue Zyvox 2. Wound care Subjective ROS Limited/Unobtainable: Yes Constitutional: Denies: fever Allergies: Coded Allergies: No Known Allergies (Unverified , 05/15/20) Objective Last 24 Hour Vital Signs Date Time Temp Pulse Resp B/P (MAP) Pulse Ox O2 Delivery O2 Flow Rate FiO2 06/26/20 12:00 98.2 79 20 148/68 (94) 100 06/26/20 09:42 164/70 06/26/20 09:41 164/70 06/26/20 08:46 Trach Collar 5.0 06/26/20 08:00 70 06/26/20 08:00 98.1 68 20 164/70 (101) 100 06/26/20 06:00 71 111/66 06/26/20 04:00 98.4 71 18 111/60 (77) 100 06/26/20 04:00 73 06/26/20 00:38 98 T-Piece 6.0 28 06/26/20 00:00 98.1 69 16 129/79 (96) 96 06/26/20 00:00 69 06/25/20 21:06 62 124/52 06/25/20 21:00 Trach Collar 5.0 06/25/20 20:00 97.2 62 18 124/52 (76) 96 06/25/20 20:00 75 06/25/20 19:56 97 T-Piece 6.0 28 06/25/20 18:31 88 149/86 (107) 06/25/20 17:31 163/78 06/25/20 17:31 163/78 06/25/20 16:45 97.7 81 18 163/78 (106) 98 06/25/20 16:00 76 06/25/20 13:27 75 126/72 06/25/20 13:07 96 T-Piece 6.0 28 Height (Feet): 5 Height (Inches): 3.00 Weight (Pounds): 157 General Appearance: no acute distress HEENT: status post trach Respiratory/Chest: lungs clear, other - on T bar Cardiovascular: normal rate Abdomen: soft, non tender, other - GT feeding Extremities: other - hands edema Skin: ulcers Neurologic/Psychiatric: aphasia, other - Opens eyes Laboratory Tests Test 06/25/20 17:29 06/25/20 20:30 06/26/20 00:17 06/26/20 05:50 POC Whole Blood Glucose 105 MG/DL (74-106) 112 MG/DL (74-106) H 93 MG/DL (74-106) White Blood Count 13.9 K/UL (4.8-10.8) H Red Blood Count 3.13 M/UL (4.20-5.40) L Hemoglobin 8.1 G/DL (12.0-16.0) L Hematocrit 24.2 % (37.0-47.0) L Mean Corpuscular Volume 77 FL (80-99) L Mean Corpuscular Hemoglobin 25.8 PG (27.0-31.0) L Mean Corpuscular Hemoglobin Concent 33.4 G/DL (32.0-36.0) Red Cell Distribution Width 16.2 % (11.6-14.8) H Platelet Count 158 K/UL (150-450) Mean Platelet Volume 8.4 FL (6.5-10.1) Neutrophils (%) (Auto) 84.7 % (45.0-75.0) H Lymphocytes (%) (Auto) 8.1 % (20.0-45.0) L Monocytes (%) (Auto) 5.9 % (1.0-10.0) Eosinophils (%) (Auto) 0.7 % (0.0-3.0) Basophils (%) (Auto) 0.6 % (0.0-2.0) Sodium Level 139 MMOL/L (136-145) Potassium Level 4.1 MMOL/L (3.5-5.1) Chloride Level 107 MMOL/L (98-107) Carbon Dioxide Level 25 MMOL/L (21-32) Anion Gap 7 mmol/L (5-15) Blood Urea Nitrogen 38 mg/dL (7-18) H Creatinine 0.9 MG/DL (0.55-1.30) Estimat Glomerular Filtration Rate > 60 mL/min (>60) Glucose Level 54 MG/DL (74-106) L Calcium Level 8.2 MG/DL (8.5-10.1) L Magnesium Level 1.9 MG/DL (1.8-2.4) Total Bilirubin 0.3 MG/DL (0.2-1.0) Aspartate Amino Transf (AST/SGOT) 12 U/L (15-37) L Alanine Aminotransferase (ALT/SGPT) 14 U/L (12-78) Alkaline Phosphatase 81 U/L (46-116) Pro-B-Type Natriuretic Peptide 96912 pg/mL (0-125) H Total Protein 5.4 G/DL (6.4-8.2) L Albumin 1.8 G/DL (3.4-5.0) L Globulin 3.6 g/dL Albumin/Globulin Ratio 0.5 (1.0-2.7) L Test 06/26/20 06:11 06/26/20 06:41 06/26/20 07:39 06/26/20 12:27 POC Whole Blood Glucose Pending 59 MG/DL (74-106) L 110 MG/DL (74-106) H 88 MG/DL (74-106) Current Medications Medications (Trade) Dose Ordered Sig/Cayden Route PRN Reason Start Time Stop Time Status Last Admin Dose Admin Apixaban (Eliquis) 5 mg BID GT 06/20/20 09:00 09/18/20 08:59 06/26/20 09:41 Ascorbic Acid (Vitamin C) 250 mg DAILY GT 05/28/20 09:00 06/27/20 08:59 06/26/20 09:40 Chlorhexidine Gluconate (Ayaka-Hex 2%) 1 applic DAILY@1999 TOPIC 06/23/20 20:00 09/21/20 19:59 06/25/20 21:05 Clonidine HCl (Catapres Tab) 0.1 mg Q4H PRN GT for sbp>150 06/20/20 08:15 09/01/20 08:59 06/25/20 17:31 Dextrose (Dextrose 50%) 25 ml Q30M PRN IV Hypoglycemia 05/26/20 07:30 08/24/20 07:29 Dextrose (Dextrose 50%) 50 ml Q30M PRN IV Hypoglycemia 05/26/20 07:30 08/24/20 07:29 06/26/20 06:51 Insulin Aspart (NovoLOG) Q6HR SUBQ 05/26/20 12:00 08/24/20 11:59 06/24/20 12:19 Insulin Detemir (Levemir) 24 units EVERY 12 HOURS SUBQ 06/16/20 09:00 09/14/20 08:59 06/25/20 21:08 Isosorbide Dinitrate (Isordil) 20 mg THREE TIMES A DAY GT 06/02/20 13:00 07/02/20 12:59 06/26/20 09:41 Lansoprazole (Prevacid) 30 mg DAILY GT 06/24/20 09:00 07/24/20 08:59 06/26/20 09:41 Linezolid (Zyvox) 600 mg EVERY 12 HOURS GT 06/19/20 21:00 07/05/20 23:59 06/26/20 09:40 Lisinopril (PriniviL) 20 mg DAILY GT 06/25/20 09:00 07/25/20 08:59 06/26/20 09:42 Metoprolol Tartrate (Lopressor) 50 mg EVERY 8 HOURS GT 05/28/20 22:00 08/26/20 21:59 06/25/20 21:06 Colby Rock MD Jun 26, 2020 12:57
--- NOTE | 2020-06-26 13:47 | Hematology/Onc Progress Note ---
Assessment/Plan Assessment/Plan Assessment and Recs # Leukocytosis, peripherally -- may be multiple causes, metamyelocytes and myelocytes noted on automatic cbc analyzer --> FIRSt, begin with peripheral smear--< negative for abnormal cells, immature ones --> after send for flow coytometry, r/o leukemia v other processes --> inflammatory markers elevated, may be a cause --> wbc 26-->21->14 # Anemia of chronic disease due to underlying chronic medical issues, multifactorial v Gi bleed --> Anemia workup has been ordered, rule out gi bleed --> No evidence of hemolysis is noted, peripheral smear has been reviewed. --> Hgb goal >7. Transfuse prn. --> Epogen or iron at this time is not particularly indicated --> Medications have been reviewed --> low threshold for gi evaluation in case has occult + --> hgb 9-->9.1-->8.1 # Sepsis with pna --> ABX fluc, linezolid, cefepime # PNA --> imaging per id, pulm # Elevated troponin --> cards aware # Dvt ppx --> apixaban Appreciate consultation and continue to follow Subjective Constitutional: Denies: no symptoms, chills, fever, malaise, weakness, other HEENT: Denies: no symptoms, eye pain, blurred vision, tearing, double vision, ear pain, ear discharge, nose pain, nose congestion, throat pain, throat swelling, mouth pain, mouth swelling, other Cardiovascular: Denies: no symptoms, chest pain, edema, irregular heart rate, lightheadedness, palpitations, syncope, other Respiratory: Denies: no symptoms, cough, shortness of breath, SOB with excertion, SOB at rest, sputum, wheezing, other Gastrointestinal/Abdominal: Denies: no symptoms, abdomen distended, abdominal pain, black stools, tarry stools, blood in stool, constipated, diarrhea, difficulty swallowing, nausea, poor appetite, poor fluid intake, rectal bleeding, vomiting, other Genitourinary: Denies: no symptoms, burning, discharge, frequency, flank pain, hematuria, incontinence, pain, urgency, other Hematologic/Lymphatic: Denies: no symptoms, anemia, easy bleeding, easy bruising, adenopathy, other Allergies: Coded Allergies: No Known Allergies (Unverified , 05/15/20) Subjective 06/24 labs are noted, wbc has improved, no bleeding, meds noted, nv 06/25 some diarrhea overnight, no bleeding, comfortable otherwise, labs noted Objective Objective Current Medications Medications (Trade) Dose Ordered Sig/Cayden Route PRN Reason Start Time Stop Time Status Last Admin Dose Admin Apixaban (Eliquis) 5 mg BID GT 06/20/20 09:00 09/18/20 08:59 06/26/20 09:41 Ascorbic Acid (Vitamin C) 250 mg DAILY GT 05/28/20 09:00 06/27/20 08:59 06/26/20 09:40 Chlorhexidine Gluconate (Ayaka-Hex 2%) 1 applic DAILY@1999 TOPIC 06/23/20 20:00 09/21/20 19:59 06/25/20 21:05 Clonidine HCl (Catapres Tab) 0.1 mg Q4H PRN GT for sbp>150 06/20/20 08:15 09/01/20 08:59 06/25/20 17:31 Dextrose (Dextrose 50%) 25 ml Q30M PRN IV Hypoglycemia 05/26/20 07:30 08/24/20 07:29 Dextrose (Dextrose 50%) 50 ml Q30M PRN IV Hypoglycemia 05/26/20 07:30 08/24/20 07:29 06/26/20 06:51 Insulin Aspart (NovoLOG) Q6HR SUBQ 05/26/20 12:00 08/24/20 11:59 06/24/20 12:19 Insulin Detemir (Levemir) 24 units EVERY 12 HOURS SUBQ 06/16/20 09:00 09/14/20 08:59 06/25/20 21:08 Isosorbide Dinitrate (Isordil) 20 mg THREE TIMES A DAY GT 06/02/20 13:00 07/02/20 12:59 06/26/20 13:12 Lansoprazole (Prevacid) 30 mg DAILY GT 06/24/20 09:00 07/24/20 08:59 06/26/20 09:41 Linezolid (Zyvox) 600 mg EVERY 12 HOURS GT 06/19/20 21:00 07/05/20 23:59 06/26/20 09:40 Lisinopril (PriniviL) 20 mg DAILY GT 06/25/20 09:00 07/25/20 08:59 06/26/20 09:42 Metoprolol Tartrate (Lopressor) 50 mg EVERY 8 HOURS GT 05/28/20 22:00 08/26/20 21:59 06/26/20 13:12 Last 24 Hour Vital Signs Date Time Temp Pulse Resp B/P (MAP) Pulse Ox O2 Delivery O2 Flow Rate FiO2 06/26/20 13:12 148/68 06/26/20 13:12 83 148/68 06/26/20 12:00 83 06/26/20 12:00 98.2 79 20 148/68 (94) 100 06/26/20 09:42 164/70 06/26/20 09:41 164/70 06/26/20 08:46 Trach Collar 5.0 06/26/20 08:00 70 06/26/20 08:00 98.1 68 20 164/70 (101) 100 06/26/20 06:00 71 111/66 06/26/20 04:00 98.4 71 18 111/60 (77) 100 06/26/20 04:00 73 06/26/20 00:38 98 T-Piece 6.0 28 06/26/20 00:00 98.1 69 16 129/79 (96) 96 06/26/20 00:00 69 06/25/20 21:06 62 124/52 06/25/20 21:00 Trach Collar 5.0 06/25/20 20:00 97.2 62 18 124/52 (76) 96 06/25/20 20:00 75 06/25/20 19:56 97 T-Piece 6.0 28 06/25/20 18:31 88 149/86 (107) 06/25/20 17:31 163/78 06/25/20 17:31 163/78 06/25/20 16:45 97.7 81 18 163/78 (106) 98 06/25/20 16:00 76 06/25/20 13:27 75 126/72 06/25/20 13:07 96 T-Piece 6.0 28 06/25/20 12:50 126/72 06/25/20 12:00 Trach Collar 5.0 06/25/20 12:00 97.3 75 21 126/72 (90) 98 06/25/20 12:00 73 06/25/20 09:24 127/65 06/25/20 09:24 127/65 06/25/20 09:00 Trach Collar 5.0 06/25/20 08:00 62 06/25/20 08:00 97.5 63 18 127/65 (85) 100 06/25/20 07:26 100 T-Piece 6.0 28 06/25/20 06:54 65 152/78 06/25/20 03:45 97.9 65 20 152/78 (102) 100 06/25/20 03:39 71 06/25/20 01:34 99 T-Piece 6.0 28 06/25/20 00:00 97.2 65 19 148/76 (100) 100 06/25/20 00:00 68 06/24/20 21:00 Trach Collar 5.0 06/24/20 20:40 67 144/76 06/24/20 20:00 97.3 67 22 144/76 (98) 100 06/24/20 19:32 70 06/24/20 19:20 99 T-Piece 6.0 28 06/24/20 18:49 156/84 06/24/20 18:45 156/84 06/24/20 16:00 96.6 71 21 156/84 (108) 100 06/24/20 15:26 68 06/24/20 13:58 98 T-Piece 6.0 28 Intake and Output 06/25/20 06/26/20 19:00 07:00 Intake Total 590 ml Output Total 400 ml 400 ml Balance 190 ml -400 ml Free Water 160 ml Tube Feeding 250 ml Other 180 ml Output Urine Total 400 ml 400 ml # Voids 1 # Bowel Movements 2 1 Labs Test 06/23/20 13:58 06/23/20 18:10 06/23/20 21:38 06/24/20 00:56 Arterial Blood pH 7.471 (7.350-7.450) Arterial Blood Partial Pressure CO2 28.1 mmHg (35.0-45.0) Arterial Blood Partial Pressure O2 76.4 mmHg (75.0-100.0) Arterial Blood HCO3 20.0 mmol/L (22.0-26.0) Arterial Blood Oxygen Saturation 94.9 % (95-100) Arterial Blood Base Excess -2.8 (-2-2) Sudeep Test Positive POC Whole Blood Glucose 126 MG/DL (74-106) 134 MG/DL (74-106) 131 MG/DL (74-106) Test 06/24/20 05:45 06/24/20 08:30 06/24/20 12:17 06/24/20 18:33 POC Whole Blood Glucose 123 MG/DL (74-106) 184 MG/DL (74-106) White Blood Count 17.0 K/UL (4.8-10.8) Red Blood Count 4.07 M/UL (4.20-5.40) Hemoglobin 10.5 G/DL (12.0-16.0) Hematocrit 32.1 % (37.0-47.0) Mean Corpuscular Volume 79 FL (80-99) Mean Corpuscular Hemoglobin 25.7 PG (27.0-31.0) Mean Corpuscular Hemoglobin Concent 32.7 G/DL (32.0-36.0) Red Cell Distribution Width 16.7 % (11.6-14.8) Platelet Count 194 K/UL (150-450) Mean Platelet Volume 7.5 FL (6.5-10.1) Neutrophils (%) (Auto) % (45.0-75.0) Lymphocytes (%) (Auto) % (20.0-45.0) Monocytes (%) (Auto) % (1.0-10.0) Eosinophils (%) (Auto) % (0.0-3.0) Basophils (%) (Auto) % (0.0-2.0) Differential Total Cells Counted 100 Neutrophils % (Manual) 88 % (45-75) Lymphocytes % (Manual) 9 % (20-45) Monocytes % (Manual) 3 % (1-10) Eosinophils % (Manual) 0 % (0-3) Basophils % (Manual) 0 % (0-2) Band Neutrophils 0 % (0-8) Platelet Estimate Adequate Platelet Morphology Normal Hypochromasia 1+ Anisocytosis 1+ Microcytosis 1+ Sodium Level 140 MMOL/L (136-145) Potassium Level 4.6 MMOL/L (3.5-5.1) Chloride Level 106 MMOL/L (98-107) Carbon Dioxide Level 22 MMOL/L (21-32) Anion Gap 12 mmol/L (5-15) Blood Urea Nitrogen 43 mg/dL (7-18) Creatinine 1.0 MG/DL (0.55-1.30) Estimat Glomerular Filtration Rate 54.3 mL/min (>60) Glucose Level 146 MG/DL (74-106) Calcium Level 8.7 MG/DL (8.5-10.1) Magnesium Level 2.2 MG/DL (1.8-2.4) Test 06/24/20 20:47 06/25/20 04:00 06/25/20 06:08 06/25/20 10:15 POC Whole Blood Glucose 107 MG/DL (74-106) Sodium Level 139 MMOL/L (136-145) Potassium Level 4.1 MMOL/L (3.5-5.1) Chloride Level 106 MMOL/L (98-107) Carbon Dioxide Level 24 MMOL/L (21-32) Anion Gap 9 mmol/L (5-15) Blood Urea Nitrogen 43 mg/dL (7-18) Creatinine 0.9 MG/DL (0.55-1.30) Estimat Glomerular Filtration Rate > 60 mL/min (>60) Glucose Level 116 MG/DL (74-106) Calcium Level 8.2 MG/DL (8.5-10.1) Magnesium Level 2.1 MG/DL (1.8-2.4) White Blood Count 15.5 K/UL (4.8-10.8) Red Blood Count 3.88 M/UL (4.20-5.40) Hemoglobin 9.9 G/DL (12.0-16.0) Hematocrit 30.4 % (37.0-47.0) Mean Corpuscular Volume 78 FL (80-99) Mean Corpuscular Hemoglobin 25.7 PG (27.0-31.0) Mean Corpuscular Hemoglobin Concent 32.7 G/DL (32.0-36.0) Red Cell Distribution Width 16.5 % (11.6-14.8) Platelet Count 179 K/UL (150-450) Mean Platelet Volume 7.7 FL (6.5-10.1) Neutrophils (%) (Auto) % (45.0-75.0) Lymphocytes (%) (Auto) % (20.0-45.0) Monocytes (%) (Auto) % (1.0-10.0) Eosinophils (%) (Auto) % (0.0-3.0) Basophils (%) (Auto) % (0.0-2.0) Differential Total Cells Counted 100 Neutrophils % (Manual) 87 % (45-75) Lymphocytes % (Manual) 6 % (20-45) Monocytes % (Manual) 5 % (1-10) Eosinophils % (Manual) 0 % (0-3) Basophils % (Manual) 2 % (0-2) Band Neutrophils 0 % (0-8) Platelet Estimate Adequate Platelet Morphology Normal Hypochromasia 2+ Anisocytosis 1+ Microcytosis 1+ Test 06/25/20 12:17 06/25/20 17:29 06/25/20 20:30 06/26/20 00:17 POC Whole Blood Glucose 111 MG/DL (74-106) 105 MG/DL (74-106) 112 MG/DL (74-106) 93 MG/DL (74-106) Test 06/26/20 05:50 06/26/20 06:11 06/26/20 06:41 06/26/20 07:39 White Blood Count 13.9 K/UL (4.8-10.8) Red Blood Count 3.13 M/UL (4.20-5.40) Hemoglobin 8.1 G/DL (12.0-16.0) Hematocrit 24.2 % (37.0-47.0) Mean Corpuscular Volume 77 FL (80-99) Mean Corpuscular Hemoglobin 25.8 PG (27.0-31.0) Mean Corpuscular Hemoglobin Concent 33.4 G/DL (32.0-36.0) Red Cell Distribution Width 16.2 % (11.6-14.8) Platelet Count 158 K/UL (150-450) Mean Platelet Volume 8.4 FL (6.5-10.1) Neutrophils (%) (Auto) 84.7 % (45.0-75.0) Lymphocytes (%) (Auto) 8.1 % (20.0-45.0) Monocytes (%) (Auto) 5.9 % (1.0-10.0) Eosinophils (%) (Auto) 0.7 % (0.0-3.0) Basophils (%) (Auto) 0.6 % (0.0-2.0) Sodium Level 139 MMOL/L (136-145) Potassium Level 4.1 MMOL/L (3.5-5.1) Chloride Level 107 MMOL/L (98-107) Carbon Dioxide Level 25 MMOL/L (21-32) Anion Gap 7 mmol/L (5-15) Blood Urea Nitrogen 38 mg/dL (7-18) Creatinine 0.9 MG/DL (0.55-1.30) Estimat Glomerular Filtration Rate > 60 mL/min (>60) Glucose Level 54 MG/DL (74-106) Calcium Level 8.2 MG/DL (8.5-10.1) Magnesium Level 1.9 MG/DL (1.8-2.4) Total Bilirubin 0.3 MG/DL (0.2-1.0) Aspartate Amino Transf (AST/SGOT) 12 U/L (15-37) Alanine Aminotransferase (ALT/SGPT) 14 U/L (12-78) Alkaline Phosphatase 81 U/L (46-116) Pro-B-Type Natriuretic Peptide 37005 pg/mL (0-125) Total Protein 5.4 G/DL (6.4-8.2) Albumin 1.8 G/DL (3.4-5.0) Globulin 3.6 g/dL Albumin/Globulin Ratio 0.5 (1.0-2.7) POC Whole Blood Glucose 59 MG/DL (74-106) 110 MG/DL (74-106) Test 06/26/20 12:27 POC Whole Blood Glucose 88 MG/DL (74-106) Height (Feet): 5 Height (Inches): 3.00 Weight (Pounds): 157 Objective GEN: nad, nv HEENT: normal ENT inspection, Thin Trach++ RHYTHM: NSR, PACs LUNGS: diminished breath sounds - left, bilateral rhonchi CARDIAC: normal rate, regular rhythm, normal S1 and S2, arrhythmia ABDOMEN: normal bowel sounds, non tender, soft, G-Tube intact++ EXTREMITIES: trace edema, other - sacral decub. noncommunicative Edwin Mendoza MD Jun 26, 2020 13:47
--- NOTE | 2020-06-26 15:03 | General Progress Note ---
Subjective Allergies: Coded Allergies: No Known Allergies (Unverified , 05/15/20) Objective Last 24 Hour Vital Signs Date Time Temp Pulse Resp B/P (MAP) Pulse Ox O2 Delivery O2 Flow Rate FiO2 06/26/20 13:12 148/68 06/26/20 13:12 83 148/68 06/26/20 12:00 83 06/26/20 12:00 98.2 79 20 148/68 (94) 100 06/26/20 09:42 164/70 06/26/20 09:41 164/70 06/26/20 08:46 Trach Collar 5.0 06/26/20 08:00 70 06/26/20 08:00 98.1 68 20 164/70 (101) 100 06/26/20 06:00 71 111/66 06/26/20 04:00 98.4 71 18 111/60 (77) 100 06/26/20 04:00 73 06/26/20 00:38 98 T-Piece 6.0 28 06/26/20 00:00 98.1 69 16 129/79 (96) 96 06/26/20 00:00 69 06/25/20 21:06 62 124/52 06/25/20 21:00 Trach Collar 5.0 06/25/20 20:00 97.2 62 18 124/52 (76) 96 06/25/20 20:00 75 06/25/20 19:56 97 T-Piece 6.0 28 06/25/20 18:31 88 149/86 (107) 06/25/20 17:31 163/78 06/25/20 17:31 163/78 06/25/20 16:45 97.7 81 18 163/78 (106) 98 06/25/20 16:00 76 Intake and Output 06/25/20 06/26/20 18:59 06:59 Intake Total 615 ml Output Total 400 ml 400 ml Balance 215 ml -400 ml Free Water 160 ml Tube Feeding 275 ml Other 180 ml Output Urine Total 400 ml 400 ml # Voids 1 # Bowel Movements 2 1 Laboratory Tests 06/25/20 17:29: POC Whole Blood Glucose 105 06/25/20 20:30: POC Whole Blood Glucose 112H 06/26/20 00:17: POC Whole Blood Glucose 93 06/26/20 05:50: White Blood Count 13.9H, Red Blood Count 3.13L, Hemoglobin 8.1L, Hematocrit 24.2L, Mean Corpuscular Volume 77L, Mean Corpuscular Hemoglobin 25.8L, Mean Corpuscular Hemoglobin Concent 33.4, Red Cell Distribution Width 16.2H, Platelet Count 158, Mean Platelet Volume 8.4, Neutrophils (%) (Auto) 84.7H, Lymphocytes (%) (Auto) 8.1L, Monocytes (%) (Auto) 5.9, Eosinophils (%) (Auto) 0.7, Basophils (%) (Auto) 0.6, Sodium Level 139, Potassium Level 4.1, Chloride Level 107, Carbon Dioxide Level 25, Anion Gap 7, Blood Urea Nitrogen 38H, Creatinine 0.9, Estimat Glomerular Filtration Rate > 60, Glucose Level 54L, Calcium Level 8.2L, Magnesium Level 1.9, Total Bilirubin 0.3, Aspartate Amino Transf (AST/SGOT) 12L, Alanine Aminotransferase (ALT/SGPT) 14, Alkaline Phosphatase 81, Pro-B-Type Natriuretic Peptide 90525X, Total Protein 5.4L, Albumin 1.8L, Globulin 3.6, Albumin/Globulin Ratio 0.5L 06/26/20 06:11: POC Whole Blood Glucose [Pending] 06/26/20 06:41: POC Whole Blood Glucose 59L 06/26/20 07:39: POC Whole Blood Glucose 110H 06/26/20 12:27: POC Whole Blood Glucose 88 Height (Feet): 5 Height (Inches): 3.00 Weight (Pounds): 157 Assessment/Plan Assessment/Plan: Assessment - Diarrhea - TF vs C Diff - resp failure, s/p Trach - dysphagia, s/p PEG - microcytic anemia - leukocytosis - CVA/OBS/encephalopathy - decub ulcer - DM - poor Px Recommendation - Check C Diff - po Vanco, until C Diff back - continue TF - rectal tube - follow labs Thank you MD Kera Luna Payman MD Jun 26, 2020 15:03
[2020-06-26 16:00] VITALS: BP 100/52
--- NOTE | 2020-06-26 16:06 | Cardiology Progress Note ---
Subjective DATE OF SERVICE: Jun 26, 2020 On T-collar - now with decreasing leukocytosis and congestion. Continued diarrhea; now on empiric oral vancomycin for possible CDiff. Continued with abnormal renal function Still with hematuria; anticoagulation on hold. BP range elevated at times, but improving Glucose trend continues to be elevated. Sputum culture A.baumanni Monitor: Sinus with PAFIb and short runs of aberrancy. CT scan: Pulmonary edema and pleural effusion Venous duplex of UE's negative for DVT 2D Echo (04/2020) LVEF was 35% Objective Last 24 Hour Vital Signs Date Time Temp Pulse Resp B/P (MAP) Pulse Ox O2 Delivery O2 Flow Rate FiO2 06/26/20 13:50 98 T-Piece 6.0 28 06/26/20 13:12 148/68 06/26/20 13:12 83 148/68 06/26/20 12:00 83 06/26/20 12:00 98.2 79 20 148/68 (94) 100 06/26/20 09:42 164/70 06/26/20 09:41 164/70 06/26/20 08:46 Trach Collar 5.0 06/26/20 08:04 99 T-Piece 6.0 28 06/26/20 08:00 70 06/26/20 08:00 98.1 68 20 164/70 (101) 100 06/26/20 06:00 71 111/66 06/26/20 04:00 98.4 71 18 111/60 (77) 100 06/26/20 04:00 73 06/26/20 00:38 98 T-Piece 6.0 28 06/26/20 00:00 98.1 69 16 129/79 (96) 96 06/26/20 00:00 69 06/25/20 21:06 62 124/52 06/25/20 21:00 Trach Collar 5.0 06/25/20 20:00 97.2 62 18 124/52 (76) 96 06/25/20 20:00 75 06/25/20 19:56 97 T-Piece 6.0 28 06/25/20 18:31 88 149/86 (107) 06/25/20 17:31 163/78 06/25/20 17:31 163/78 06/25/20 16:45 97.7 81 18 163/78 (106) 98 ROS: no change from my assessment of 05/25/20 - remains unobtainable from patient HEENT: normal ENT inspection, Thin Trach secretions RHYTHM: NSR, PACs LUNGS: diminished breath sounds - left, bilateral rhonchi CARDIAC: normal rate, regular rhythm, normal S1 and S2, arrhythmia ABDOMEN: normal bowel sounds, non tender, soft, G-Tube intact EXTREMITIES: trace edema, +2 edema - extremities, other - sacral decub. noncommunicative Laboratory Tests Test 06/25/20 17:29 06/25/20 20:30 06/26/20 00:17 06/26/20 05:50 POC Whole Blood Glucose 105 MG/DL (74-106) 112 MG/DL (74-106) H 93 MG/DL (74-106) White Blood Count 13.9 K/UL (4.8-10.8) H Red Blood Count 3.13 M/UL (4.20-5.40) L Hemoglobin 8.1 G/DL (12.0-16.0) L Hematocrit 24.2 % (37.0-47.0) L Mean Corpuscular Volume 77 FL (80-99) L Mean Corpuscular Hemoglobin 25.8 PG (27.0-31.0) L Mean Corpuscular Hemoglobin Concent 33.4 G/DL (32.0-36.0) Red Cell Distribution Width 16.2 % (11.6-14.8) H Platelet Count 158 K/UL (150-450) Mean Platelet Volume 8.4 FL (6.5-10.1) Neutrophils (%) (Auto) 84.7 % (45.0-75.0) H Lymphocytes (%) (Auto) 8.1 % (20.0-45.0) L Monocytes (%) (Auto) 5.9 % (1.0-10.0) Eosinophils (%) (Auto) 0.7 % (0.0-3.0) Basophils (%) (Auto) 0.6 % (0.0-2.0) Sodium Level 139 MMOL/L (136-145) Potassium Level 4.1 MMOL/L (3.5-5.1) Chloride Level 107 MMOL/L (98-107) Carbon Dioxide Level 25 MMOL/L (21-32) Anion Gap 7 mmol/L (5-15) Blood Urea Nitrogen 38 mg/dL (7-18) H Creatinine 0.9 MG/DL (0.55-1.30) Estimat Glomerular Filtration Rate > 60 mL/min (>60) Glucose Level 54 MG/DL (74-106) L Calcium Level 8.2 MG/DL (8.5-10.1) L Magnesium Level 1.9 MG/DL (1.8-2.4) Total Bilirubin 0.3 MG/DL (0.2-1.0) Aspartate Amino Transf (AST/SGOT) 12 U/L (15-37) L Alanine Aminotransferase (ALT/SGPT) 14 U/L (12-78) Alkaline Phosphatase 81 U/L (46-116) Pro-B-Type Natriuretic Peptide 04687 pg/mL (0-125) H Total Protein 5.4 G/DL (6.4-8.2) L Albumin 1.8 G/DL (3.4-5.0) L Globulin 3.6 g/dL Albumin/Globulin Ratio 0.5 (1.0-2.7) L Test 06/26/20 06:11 06/26/20 06:41 06/26/20 07:39 06/26/20 12:27 POC Whole Blood Glucose Pending 59 MG/DL (74-106) L 110 MG/DL (74-106) H 88 MG/DL (74-106) Assessment/Plan Assessment/Plan Healthcare associated PNA Hospital acquired fungal cystitis with resolving hematuria Left pleural effusion Acute myocardial ischemia with possible NSTE myocardial infarction Sepsis Respiratory failure Hypertension/HHD with elev BP Parox AFib Conduction system disease with bifasc block Ac/chr systolic CHF Low lipid parameters NSVT IRDM with hyperglycemia still Hypomagnesemia Contaminant in positive blood cultures Osteomyelitis Acute renal faillure improved with hydration Hyperkalemia resolved Worsening edema due to low colloid osmotic pressures Resp Rx Antibiotics per ID panel monitor Continue off IVF, trend BNP, reassess for diuresis, and titrate ACEi rx. Anticoagulation resumed; observe for worsening bleeding. Titrate CV regimen based on clinical parameters - continue current antianginal regimen, including beta pietro. No need for statin Titrate insulin rx - advancing levemir as needed Wound care Monitor hemoglobin. Follow up CDiff toxin result REMAINS HIGH RISK John Heard MD Jun 26, 2020 16:06
[2020-06-26] MEDS: Vancomycin oral 125mg/2.5ml ORAL SCH ×2 (17:59→21:10)
[2020-06-26 20:00] VITALS: BP 115/69
[2020-06-26] MEDS: Dyna-Hex 2% Top Sol 2oz TOPIC SCH (21:01)
--- NOTE | 2020-06-26 21:45 | Consultation ---
DATE OF CONSULTATION: 06/26/2020 GASTROENTEROLOGY CONSULTATION REPORT CONSULTING PHYSICIAN: Rm Cote MD. CHIEF COMPLAINT: I was asked to see this patient by Dr. Martinez for evaluation of diarrhea. HISTORY OF PRESENT ILLNESS: The patient is an unfortunate 74-year-old woman with a history of stroke, dementia, functional quadriplegia, respiratory failure who has a tracheostomy who was brought into the hospital and is undergoing evaluation by multiple consultants. The patient has had on and off diarrhea and she states the diarrhea has restarted. She is given tube feedings by a gastrostomy catheter. She also has leukocytosis and is receiving broad-spectrum antibiotics. Patient herself has advanced dementia and is unable to provide any history. Most of the information is only available from the chart. PAST MEDICAL HISTORY: History of diabetes, hypertension, atrial fibrillation, stroke, dementia, status post gastrostomy tube placement, status post tracheostomy tube placement. FAMILY HISTORY: Unavailable and unobtainable. SOCIAL HISTORY: Unavailable and unobtainable. REVIEW OF SYSTEMS: Unavailable and unobtainable. MEDICATIONS: See the chart list for details. PHYSICAL EXAMINATION: GENERAL: Debilitated white woman, seen in her room with the nurse at bedside. HEENT: Normocephalic and atraumatic. NECK: Showed a tracheostomy catheter. CHEST: Coarse breath sounds. CARDIOVASCULAR: Revealed a regular rate. ABDOMEN: Soft with a gastrostomy tube in the left lower quadrant without any masses. EXTREMITIES: No edema. LABORATORY DATA: Noted. ASSESSMENT: This patient presents with diarrhea in the setting of broad-spectrum antibiotics. She is at risk for Clostridium difficile and therefore, I would check for this infection and also start her empirically on vancomycin until the results are back. In addition, the patient has some degree of microcytosis on her CBC. She is a poor candidate for endoscopy or colonoscopy given her overall poor health. Iron panel should be done and she should be replaced as needed. Wound care can be continued and vitamin should be added to the formula to support wound care. RECOMMENDATIONS: Per above discussion and per orders written in the chart. Thank you for asking me to participate in the care of this patient. Rm Cote M.D. DR: ANABELLA JOB#: [id number] CC:
[2020-06-27] VITALS: BP 146/69
[2020-06-27 04:00] VITALS: BP 121/70
[2020-06-27] MEDS: NovoLOG Insulin Flexpen SUBQ SCH ×4 (06:00→18:28)
[2020-06-27] MEDS: Metoprolol Tartrate 50mg tab GT SCH ×3 (06:07→22:14)
[2020-06-27 08:20] LABS: HEMATOCRIT 25.8 % (37.0-47.0); HEMOGLOBIN 8.7 G/DL (12.0-16.0); MEAN CORPUSCULAR VOLUME 78 FL (80-99); PLATELET COUNT 166 K/UL (150-450); RED BLOOD COUNT 3.33 M/UL (4.20-5.40); RED CELL DISTRIBUTION WIDTH 16.3 % (11.6-14.8); WHITE BLOOD COUNT 14.3 K/UL (4.8-10.8)
[2020-06-27 08:23] VITALS: BP 140/84
[2020-06-27 08:42] LABS: ALANINE AMINOTRANSFERASE 14 U/L (12-78); ALBUMIN 1.9 G/DL (3.4-5.0); ALBUMIN/GLOBULIN RATIO 0.5 (1.0-2.7); ALKALINE PHOSPHATASE 100 U/L (46-116); ANION GAP 8 mmol/L (5-15); ASPARTATE AMINO TRANSFERASE 9 U/L (15-37); BILIRUBIN,TOTAL 0.3 MG/DL (0.2-1.0); BLOOD UREA NITROGEN 33 mg/dL (7-18); CALCIUM 8.1 MG/DL (8.5-10.1); CARBON DIOXIDE 25 MMOL/L (21-32); CHLORIDE 103 MMOL/L (98-107); CREATININE 0.9 MG/DL (0.55-1.30); POTASSIUM 4.5 MMOL/L (3.5-5.1); SODIUM 136 MMOL/L (136-145)
[2020-06-27 09:00] LABS: % IRON SATURATION 27 % (15-50); IRON 54 ug/dL (50-175); TOTAL IRON BINDING CAPACITY 202 ug/dL (250-450)
[2020-06-27] MEDS: Eliquis 5mg tablet GT SCH ×2 (09:16→18:29)
[2020-06-27] MEDS: Lisinopril 20mg tab GT SCH (09:17)
[2020-06-27] MEDS: Vancomycin oral 125mg/2.5ml ORAL SCH (09:24)
--- NOTE | 2020-06-27 09:59 | Pulmonology Progress Note ---
Subjective ROS Limited/Unobtainable: Yes Constitutional: Denies: fever Allergies: Coded Allergies: No Known Allergies (Unverified , 05/15/20) Objective Last 24 Hour Vital Signs Date Time Temp Pulse Resp B/P (MAP) Pulse Ox O2 Delivery O2 Flow Rate FiO2 06/27/20 09:17 140/84 06/27/20 09:17 140/84 06/27/20 08:23 97.3 76 18 140/84 (102) 99 06/27/20 06:07 82 163/75 06/27/20 04:00 84 06/27/20 04:00 99.0 83 19 121/70 (87) 97 06/27/20 01:02 99 T-Piece 6.0 06/27/20 00:00 77 06/27/20 00:00 98.4 77 19 146/69 (94) 100 06/26/20 21:06 86 115/69 06/26/20 21:00 Trach Collar 5.0 06/26/20 20:01 98 T-Piece 6.0 28 06/26/20 20:00 89 06/26/20 20:00 98.8 86 20 115/69 (84) 100 06/26/20 17:59 100/52 06/26/20 16:00 99.0 84 20 100/52 (68) 100 06/26/20 16:00 79 06/26/20 13:50 98 T-Piece 6.0 28 06/26/20 13:12 148/68 06/26/20 13:12 83 148/68 06/26/20 12:00 83 06/26/20 12:00 98.2 79 20 148/68 (94) 100 Intake and Output 06/26/20 06/27/20 19:00 07:00 Intake Total 450 ml Output Total 300 ml 600 ml Balance -300 ml -150 ml Free Water 400 ml Tube Feeding 50 ml Output Urine Total 300 ml 600 ml # Bowel Movements 1 1 Microbiology Date/Time Source Procedure Growth Status 06/26/20 15:00 Stool Clostridium difficile Toxin Assay - Final Complete Laboratory Tests 06/26/20 12:27: POC Whole Blood Glucose 88 06/26/20 18:01: POC Whole Blood Glucose 73L 06/26/20 20:49: POC Whole Blood Glucose 88 06/27/20 00:44: POC Whole Blood Glucose [Pending] 06/27/20 05:58: POC Whole Blood Glucose [Pending] 06/27/20 07:15: White Blood Count 14.3H, Red Blood Count 3.33L, Hemoglobin 8.7L, Hematocrit 25.8L, Mean Corpuscular Volume 78L, Mean Corpuscular Hemoglobin 26.0L, Mean Corpuscular Hemoglobin Concent 33.5, Red Cell Distribution Width 16.3H, Platelet Count 166, Mean Platelet Volume 8.9, Neutrophils (%) (Auto) , Lymphocytes (%) (Auto) , Monocytes (%) (Auto) , Eosinophils (%) (Auto) , Basophils (%) (Auto) , Differential Total Cells Counted 100, Neutrophils % (Manual) 86H, Lymphocytes % (Manual) 6L, Monocytes % (Manual) 6, Eosinophils % (Manual) 1, Basophils % (Manual) 1, Band Neutrophils 0, Platelet Estimate Adequate, Platelet Morphology Normal, Anisocytosis 1+, Microcytosis 1+, Sodium Level 136, Potassium Level 4.5, Chloride Level 103, Carbon Dioxide Level 25, Anion Gap 8, Blood Urea Nitrogen 33H, Creatinine 0.9, Estimat Glomerular Filtration Rate > 60, Glucose Level 140H , Calcium Level 8.1L, Iron Level 54, Total Iron Binding Capacity 202L, Percent Iron Saturation 27, Unsaturated Iron Binding 148, Total Bilirubin 0.3, Aspartate Amino Transf (AST/SGOT) 9L, Alanine Aminotransferase (ALT/SGPT) 14, Alkaline P hosphatase 100, Total Protein 5.5L, Albumin 1.9L, Globulin 3.6, Albumin/Globulin Ratio 0.5L 06/27/20 09:37: POC Whole Blood Glucose 145H 06/27/20 09:40: POC Whole Blood Glucose 152H Current Medications Medications (Trade) Dose Ordered Sig/Cayden Route PRN Reason Start Time Stop Time Status Last Admin Dose Admin Apixaban (Eliquis) 5 mg BID GT 06/20/20 09:00 09/18/20 08:59 06/27/20 09:16 Chlorhexidine Gluconate (Ayaka-Hex 2%) 1 applic DAILY@1999 TOPIC 06/23/20 20:00 09/21/20 19:59 06/26/20 21:01 Clonidine HCl (Catapres Tab) 0.1 mg Q4H PRN GT for sbp>150 06/20/20 08:15 09/01/20 08:59 06/25/20 17:31 Dextrose (Dextrose 50%) 25 ml Q30M PRN IV Hypoglycemia 05/26/20 07:30 08/24/20 07:29 Dextrose (Dextrose 50%) 50 ml Q30M PRN IV Hypoglycemia 05/26/20 07:30 08/24/20 07:29 06/26/20 06:51 Insulin Aspart (NovoLOG) Q6HR SUBQ 05/26/20 12:00 08/24/20 11:59 06/24/20 12:19 Insulin Detemir (Levemir) 24 units EVERY 12 HOURS SUBQ 06/16/20 09:00 09/14/20 08:59 06/25/20 21:08 Isosorbide Dinitrate (Isordil) 20 mg THREE TIMES A DAY GT 06/02/20 13:00 07/02/20 12:59 06/27/20 09:17 Lansoprazole (Prevacid) 30 mg DAILY GT 06/24/20 09:00 07/24/20 08:59 06/27/20 09:17 Linezolid (Zyvox) 600 mg EVERY 12 HOURS GT 06/19/20 21:00 07/05/20 23:59 06/27/20 09:17 Lisinopril (PriniviL) 20 mg DAILY GT 06/25/20 09:00 07/25/20 08:59 06/27/20 09:17 Metoprolol Tartrate (Lopressor) 50 mg EVERY 8 HOURS GT 05/28/20 22:00 08/26/20 21:59 06/27/20 06:07 Multivitamins (Multivitamins) 1 tab DAILY ORAL 06/26/20 15:15 07/26/20 15:14 06/27/20 09:17 Vancomycin HCl (Firvanq) 125 mg FOUR TIMES A DAY ORAL 06/26/20 18:00 07/03/20 17:59 06/27/20 09:24 Assessment/Plan Assessment/Plan Pulmonary Progress Note Subjective ROS Limited/Unobtainable: Yes Allergies: Coded Allergies: No Known Allergies (Unverified , 05/15/20) Subjective care noted MDRO - Acinetobacter pneumonia wbc improving stable overnight Objective Vital Signs noted Objective WDWN NAD trach - t piece reduced breath sounds bilaterally [id number] without MRG NABS nontender GT no CCE withdrawn Laboratory Tests noted Assessment/Plan Assessment/Plan IMPRESSION leukocytosis, worse Afib, chronic encephalopathy trach respiratory failure elevated troponin anemia bacteremia- staph fevers better hypertension osteo hematuria diabetes UTI with candiida PLAN wbc follow up heme eval noted respiratory care; monitor in tele snf meds suction monitor cultures eliquis ID follow up and recommendations -seems improved and may proceed with dc planning impression, plan, and exam edited and reviewed in detail care discussed with RN John Pollack MD Jun 27, 2020 09:59
--- NOTE | 2020-06-27 11:09 | Infectious Diseases Prog Note ---
Assessment/Plan Assessment/Plan antibiotics : linezolid, po vancomycin A 1. acenitobacter pneumonia s/p rx 2. + blood cultures with coag neg staph likely contaminated 3. leucocytosis improving 4. diabetes mellitus 5. hypertension 6. CVA 7. dementia 8. coccygeal osteomyelitis s/p debridement 9. renal failure 10. fungal UTI s/p rx P 1. continue linezolid 8 more days 2. d/c po vancomycin 3. will follow up cultures Subjective ROS Limited/Unobtainable: Yes Allergies: Coded Allergies: No Known Allergies (Unverified , 05/15/20) Objective Last 24 Hour Vital Signs Date Time Temp Pulse Resp B/P (MAP) Pulse Ox O2 Delivery O2 Flow Rate FiO2 06/27/20 09:17 140/84 06/27/20 09:17 140/84 06/27/20 08:23 97.3 76 18 140/84 (102) 99 06/27/20 06:07 82 163/75 06/27/20 04:00 84 06/27/20 04:00 99.0 83 19 121/70 (87) 97 06/27/20 01:02 99 T-Piece 6.0 28 06/27/20 00:00 77 06/27/20 00:00 98.4 77 19 146/69 (94) 100 06/26/20 21:06 86 115/69 06/26/20 21:00 Trach Collar 5.0 06/26/20 20:01 98 T-Piece 6.0 28 06/26/20 20:00 89 06/26/20 20:00 98.8 86 20 115/69 (84) 100 06/26/20 17:59 100/52 06/26/20 16:00 99.0 84 20 100/52 (68) 100 06/26/20 16:00 79 06/26/20 13:50 98 T-Piece 6.0 28 06/26/20 13:12 148/68 06/26/20 13:12 83 148/68 06/26/20 12:00 83 06/26/20 12:00 98.2 79 20 148/68 (94) 100 Height (Feet): 5 Height (Inches): 3.00 Weight (Pounds): 157 HEENT: status post trach Respiratory/Chest: lungs clear Cardiovascular: normal rate, regular rhythm, no gallop/murmur Abdomen: soft, non tender, tender, other - GT Extremities: no edema Microbiology Date/Time Source Procedure Growth Status 06/26/20 15:00 Stool Clostridium difficile Toxin Assay - Final Complete Laboratory Tests Test 06/26/20 12:27 06/26/20 18:01 06/26/20 20:49 06/27/20 00:44 POC Whole Blood Glucose 88 MG/DL (74-106) 73 MG/DL (74-106) L 88 MG/DL (74-106) Pending Test 06/27/20 05:58 06/27/20 07:15 06/27/20 09:37 06/27/20 09:40 POC Whole Blood Glucose Pending 145 MG/DL (74-106) H 152 MG/DL (74-106) H White Blood Count 14.3 K/UL (4.8-10.8) H Red Blood Count 3.33 M/UL (4.20-5.40) L Hemoglobin 8.7 G/DL (12.0-16.0) L Hematocrit 25.8 % (37.0-47.0) L Mean Corpuscular Volume 78 FL (80-99) L Mean Corpuscular Hemoglobin 26.0 PG (27.0-31.0) L Mean Corpuscular Hemoglobin Concent 33.5 G/DL (32.0-36.0) Red Cell Distribution Width 16.3 % (11.6-14.8) H Platelet Count 166 K/UL (150-450) Mean Platelet Volume 8.9 FL (6.5-10.1) Neutrophils (%) (Auto) % (45.0-75.0) Lymphocytes (%) (Auto) % (20.0-45.0) Monocytes (%) (Auto) % (1.0-10.0) Eosinophils (%) (Auto) % (0.0-3.0) Basophils (%) (Auto) % (0.0-2.0) Differential Total Cells Counted 100 Neutrophils % (Manual) 86 % (45-75) H Lymphocytes % (Manual) 6 % (20-45) L Monocytes % (Manual) 6 % (1-10) Eosinophils % (Manual) 1 % (0-3) Basophils % (Manual) 1 % (0-2) Band Neutrophils 0 % (0-8) Platelet Estimate Adequate Platelet Morphology Normal Anisocytosis 1+ Microcytosis 1+ Sodium Level 136 MMOL/L (136-145) Potassium Level 4.5 MMOL/L (3.5-5.1) Chloride Level 103 MMOL/L (98-107) Carbon Dioxide Level 25 MMOL/L (21-32) Anion Gap 8 mmol/L (5-15) Blood Urea Nitrogen 33 mg/dL (7-18) H Creatinine 0.9 MG/DL (0.55-1.30) Estimat Glomerular Filtration Rate > 60 mL/min (>60) Glucose Level 140 MG/DL (74-106) H Calcium Level 8.1 MG/DL (8.5-10.1) L Iron Level 54 ug/dL (50-175) Total Iron Binding Capacity 202 ug/dL (250-450) L Percent Iron Saturation 27 % (15-50) Unsaturated Iron Binding 148 ug/dL (112-346) Total Bilirubin 0.3 MG/DL (0.2-1.0) Aspartate Amino Transf (AST/SGOT) 9 U/L (15-37) L Alanine Aminotransferase (ALT/SGPT) 14 U/L (12-78) Alkaline Phosphatase 100 U/L (46-116) Total Protein 5.5 G/DL (6.4-8.2) L Albumin 1.9 G/DL (3.4-5.0) L Globulin 3.6 g/dL Albumin/Globulin Ratio 0.5 (1.0-2.7) L Current Medications Medications (Trade) Dose Ordered Sig/Cayden Route PRN Reason Start Time Stop Time Status Last Admin Dose Admin Apixaban (Eliquis) 5 mg BID GT 06/20/20 09:00 09/18/20 08:59 06/27/20 09:16 Chlorhexidine Gluconate (Ayaka-Hex 2%) 1 applic DAILY@1999 TOPIC 06/23/20 20:00 09/21/20 19:59 06/26/20 21:01 Clonidine HCl (Catapres Tab) 0.1 mg Q4H PRN GT for sbp>150 06/20/20 08:15 09/01/20 08:59 06/25/20 17:31 Dextrose (Dextrose 50%) 25 ml Q30M PRN IV Hypoglycemia 05/26/20 07:30 08/24/20 07:29 Dextrose (Dextrose 50%) 50 ml Q30M PRN IV Hypoglycemia 05/26/20 07:30 08/24/20 07:29 06/26/20 06:51 Insulin Aspart (NovoLOG) Q6HR SUBQ 05/26/20 12:00 08/24/20 11:59 06/24/20 12:19 Insulin Detemir (Levemir) 24 units EVERY 12 HOURS SUBQ 06/16/20 09:00 09/14/20 08:59 06/25/20 21:08 Isosorbide Dinitrate (Isordil) 20 mg THREE TIMES A DAY GT 06/02/20 13:00 07/02/20 12:59 06/27/20 09:17 Lansoprazole (Prevacid) 30 mg DAILY GT 06/24/20 09:00 07/24/20 08:59 06/27/20 09:17 Linezolid (Zyvox) 600 mg EVERY 12 HOURS GT 06/19/20 21:00 07/05/20 23:59 06/27/20 09:17 Lisinopril (PriniviL) 20 mg DAILY GT 06/25/20 09:00 07/25/20 08:59 06/27/20 09:17 Metoprolol Tartrate (Lopressor) 50 mg EVERY 8 HOURS GT 05/28/20 22:00 08/26/20 21:59 06/27/20 06:07 Multivitamins (Multivitamins) 1 tab DAILY ORAL 06/26/20 15:15 07/26/20 15:14 06/27/20 09:17 Vancomycin HCl (Firvanq) 125 mg FOUR TIMES A DAY ORAL 06/26/20 18:00 07/03/20 17:59 06/27/20 09:24 Mina Salamanca MD Jun 27, 2020 11:09
[2020-06-27] MEDS ORDERED: Levemir Flexpen SUBQ ONE (11:45)
[2020-06-27 12:00] VITALS: BP 158/82
[2020-06-27] MEDS ORDERED: Levemir Flexpen SUBQ SCH (12:30)
[2020-06-27 16:00] VITALS: BP 135/57
[2020-06-27 20:00] VITALS: BP 144/60
[2020-06-27] MEDS: Dyna-Hex 2% Top Sol 2oz TOPIC SCH (20:26)
--- NOTE | 2020-06-27 20:29 | General Progress Note ---
Subjective Allergies: Coded Allergies: No Known Allergies (Unverified , 05/15/20) Subjective above noted non communicative on TF Objective Last 24 Hour Vital Signs Date Time Temp Pulse Resp B/P (MAP) Pulse Ox O2 Delivery O2 Flow Rate FiO2 06/27/20 19:50 98 T-Piece 6.0 06/27/20 18:29 143/63 06/27/20 16:00 83 06/27/20 16:00 99.0 89 18 135/57 (83) 06/27/20 14:58 91 135/57 06/27/20 13:58 164/79 06/27/20 13:43 99 T-Piece 6.0 06/27/20 12:00 97.5 83 20 158/82 (107) 06/27/20 12:00 84 06/27/20 09:17 140/84 06/27/20 09:17 140/84 06/27/20 09:00 73 06/27/20 09:00 Trach Collar 5.0 06/27/20 08:23 97.3 76 18 140/84 (102) 99 06/27/20 07:00 99 T-Piece 6.0 06/27/20 06:07 82 163/75 06/27/20 04:00 84 06/27/20 04:00 99.0 83 19 121/70 (87) 97 06/27/20 01:02 99 T-Piece 6.0 06/27/20 00:00 77 06/27/20 00:00 98.4 77 19 146/69 (94) 100 06/26/20 21:06 86 115/69 06/26/20 21:00 Trach Collar 5.0 Intake and Output 06/26/20 06/27/20 19:00 07:00 Intake Total 450 ml Output Total 300 ml 600 ml Balance -300 ml -150 ml Free Water 400 ml Tube Feeding 50 ml Output Urine Total 300 ml 600 ml # Bowel Movements 1 1 Laboratory Tests 06/26/20 20:49: POC Whole Blood Glucose 88 06/27/20 00:44: POC Whole Blood Glucose [Pending] 06/27/20 05:58: POC Whole Blood Glucose [Pending] 06/27/20 07:15: White Blood Count 14.3H, Red Blood Count 3.33L, Hemoglobin 8.7L, Hematocrit 25.8L, Mean Corpuscular Volume 78L, Mean Corpuscular Hemoglobin 26.0L, Mean Corpuscular Hemoglobin Concent 33.5, Red Cell Distribution Width 16.3H, Platelet Count 166, Mean Platelet Volume 8.9, Neutrophils (%) (Auto) , Lymphocytes (%) (Auto) , Monocytes (%) (Auto) , Eosinophils (%) (Auto) , Basophils (%) (Auto) , Differential Total Cells Counted 100, Neutrophils % (Manual) 86H, Lymphocytes % (Manual) 6L, Monocytes % (Manual) 6, Eosinophils % (Manual) 1, Basophils % (Manual) 1, Band Neutrophils 0, Platelet Estimate Adequate, Platelet Morphology Normal, Anisocytosis 1+, Microcytosis 1+, Sodium Level 136, Potassium Level 4.5, Chloride Level 103, Carbon Dioxide Level 25, Anion Gap 8, Blood Urea Nitrogen 33H, Creatinine 0.9, Estimat Glomerular Filtration Rate > 60, Glucose Level 140H , Calcium Level 8.1L, Iron Level 54, Total Iron Binding Capacity 202L, Percent Iron Saturation 27, Unsaturated Iron Binding 148, Total Bilirubin 0.3, Aspartate Amino Transf (AST/SGOT) 9L, Alanine Aminotransferase (ALT/SGPT) 14, Alkaline Phosphatase 100, Total Protein 5.5L, Albumin 1.9L, Globulin 3.6, Albumin/Globulin Ratio 0.5L 06/27/20 09:37: POC Whole Blood Glucose 145H 06/27/20 09:40: POC Whole Blood Glucose 152H 06/27/20 11:57: POC Whole Blood Glucose 170H Height (Feet): 5 Height (Inches): 3.00 Weight (Pounds): 157 Objective Debilitated WW NCAT (+) trach Coarse BS RR abd soft ND no edema Assessment/Plan Assessment/Plan: Assessment - Diarrhea - C Diff negative - resp failure, s/p Trach - dysphagia, s/p PEG - microcytic anemia - leukocytosis - CVA/OBS/encephalopathy - decub ulcer - DM - poor Px Recommendation - d/c po vanco - continue TF - rectal tube - follow labs Rm Cote MD Jun 27, 2020 20:29
[2020-06-27] MEDS: Levemir Flexpen SUBQ SCH (20:43)
--- NOTE | 2020-06-27 21:00 | Surgery Progress Note ---
Surgery Progress Note Subjective Procedure Performed Excisional debridement of sacral decubitus ulcer 10 cm x 10 cm x 4 cm deep down to bone Additional Comments no acute events Objective Last 24 Hour Vital Signs Date Time Temp Pulse Resp B/P (MAP) Pulse Ox O2 Delivery O2 Flow Rate FiO2 06/27/20 19:50 98 T-Piece 6.0 06/27/20 18:29 143/63 06/27/20 16:00 83 06/27/20 16:00 99.0 89 18 135/57 (83) 06/27/20 14:58 91 135/57 06/27/20 13:58 164/79 06/27/20 13:43 99 T-Piece 6.0 06/27/20 12:00 97.5 83 20 158/82 (107) 06/27/20 12:00 84 06/27/20 09:17 140/84 06/27/20 09:17 140/84 06/27/20 09:00 73 06/27/20 09:00 Trach Collar 5.0 06/27/20 08:23 97.3 76 18 140/84 (102) 99 06/27/20 07:00 99 T-Piece 6.0 06/27/20 06:07 82 163/75 06/27/20 04:00 84 06/27/20 04:00 99.0 83 19 121/70 (87) 97 06/27/20 01:02 99 T-Piece 6.0 06/27/20 00:00 77 06/27/20 00:00 98.4 77 19 146/69 (94) 100 06/26/20 21:06 86 115/69 I&O Intake and Output 06/26/20 06/27/20 19:00 07:00 Intake Total 450 ml Output Total 300 ml 600 ml Balance -300 ml -150 ml Free Water 400 ml Tube Feeding 50 ml Output Urine Total 300 ml 600 ml # Bowel Movements 1 1 Dressing: saturated Cardiovascular: RSR Respiratory: decreased breath sounds Abdomen: non-tender, present bowel sounds Extremities: no tenderness, no cyanosis Laboratory Tests Test 06/27/20 00:44 06/27/20 05:58 06/27/20 07:15 06/27/20 09:37 POC Whole Blood Glucose Pending Pending 145 MG/DL (74-106) H White Blood Count 14.3 K/UL (4.8-10.8) H Red Blood Count 3.33 M/UL (4.20-5.40) L Hemoglobin 8.7 G/DL (12.0-16.0) L Hematocrit 25.8 % (37.0-47.0) L Mean Corpuscular Volume 78 FL (80-99) L Mean Corpuscular Hemoglobin 26.0 PG (27.0-31.0) L Mean Corpuscular Hemoglobin Concent 33.5 G/DL (32.0-36.0) Red Cell Distribution Width 16.3 % (11.6-14.8) H Platelet Count 166 K/UL (150-450) Mean Platelet Volume 8.9 FL (6.5-10.1) Neutrophils (%) (Auto) % (45.0-75.0) Lymphocytes (%) (Auto) % (20.0-45.0) Monocytes (%) (Auto) % (1.0-10.0) Eosinophils (%) (Auto) % (0.0-3.0) Basophils (%) (Auto) % (0.0-2.0) Differential Total Cells Counted 100 Neutrophils % (Manual) 86 % (45-75) H Lymphocytes % (Manual) 6 % (20-45) L Monocytes % (Manual) 6 % (1-10) Eosinophils % (Manual) 1 % (0-3) Basophils % (Manual) 1 % (0-2) Band Neutrophils 0 % (0-8) Platelet Estimate Adequate Platelet Morphology Normal Anisocytosis 1+ Microcytosis 1+ Sodium Level 136 MMOL/L (136-145) Potassium Level 4.5 MMOL/L (3.5-5.1) Chloride Level 103 MMOL/L (98-107) Carbon Dioxide Level 25 MMOL/L (21-32) Anion Gap 8 mmol/L (5-15) Blood Urea Nitrogen 33 mg/dL (7-18) H Creatinine 0.9 MG/DL (0.55-1.30) Estimat Glomerular Filtration Rate > 60 mL/min (>60) Glucose Level 140 MG/DL (74-106) H Calcium Level 8.1 MG/DL (8.5-10.1) L Iron Level 54 ug/dL (50-175) Total Iron Binding Capacity 202 ug/dL (250-450) L Percent Iron Saturation 27 % (15-50) Unsaturated Iron Binding 148 ug/dL (112-346) Total Bilirubin 0.3 MG/DL (0.2-1.0) Aspartate Amino Transf (AST/SGOT) 9 U/L (15-37) L Alanine Aminotransferase (ALT/SGPT) 14 U/L (12-78) Alkaline Phosphatase 100 U/L (46-116) Total Protein 5.5 G/DL (6.4-8.2) L Albumin 1.9 G/DL (3.4-5.0) L Globulin 3.6 g/dL Albumin/Globulin Ratio 0.5 (1.0-2.7) L Test 06/27/20 09:40 06/27/20 11:57 06/27/20 20:40 POC Whole Blood Glucose 152 MG/DL (74-106) H 170 MG/DL (74-106) H 163 MG/DL (74-106) H Assessment Post-op Diagnosis Stage IV sacral decubitus ulcer Plan Problems: (1) Anemia (2) Sepsis Assessment & Plan: 74-year-old female with medical comorbidities present with leukocytosis anemia abnormal labs hypoalbuminemia failure to thrive malnutrition worsening decubitus ulcer admitted further care and management was prior on vancomycin now on IV antibiotics admitted and under monitoring. Full evaluation does not at the bedside and evaluation performed. Trach stable PEG tube stable skin deteriorating per her turgor worsening decubitus ulcer malnutrition continue tube feeds as tolerated continue antibiotics wounds unlikely etiology of patient's sepsis we will monitor and follow with recommendations trend labs thank you for letting participate patient's care improving 06/13 acute severe leukocytosis abx changed wound improved since debridement will monitor cont abx cont dressings trend labs wbc remains elevated unlikely related to wound heme input DAILY ESTIMATED NEEDS: Needs based on Wound, DM/ 57kg abw 25-30 kcals/kg 4781-6615 total kcals 1.25-1.8 g protein/kg 71-103 g total protein 20-25 mL/kg 9866-6960 total fluid mLs NUTRITION DIAGNOSIS: * Increased kcal/prot needs R/T wound healing as evidenced by pt admiteed w/ unstageable sacral wound, refer to full wound care eval. * Swallowing difficulty R/T dysphagia, respiratory status as evidenced by pt on T-collar, PEG dep. CURRENT TF:Glucerna 1.2 @ 50ml/hr x 24 hrs ENTERAL NUTRITION RECOMMENDATIONS: Glucerna 1.2 @ 50ml/hr x 24 hrs to provide 1200ml, 1440kcal, 72g, 966ml free water * Maintain current TF * HOB over 30 degrees/ water flush per MD ADDITIONAL RECOMMENDATIONS: * Calibrated bedscale wt -w/ added p200 mattress + pump * Wound healing: TF @ goal will provide 100% RDI Continue Vit C 250mg QD + add Endy BID via PEG * Monitor lytes closely w/ Lasix, replete as needed * Monitor BGs, rec increasing Levemir (POC glu 373 [id number]) . (3) Elevated troponin (4) Pneumonia (5) Encounter for generalized patient complaints (6) Decubitus skin ulcer Assessment & Plan: Patient presented on admission with an Unstageable Sacral Pressure injury(L)9.8cm x (W)6.7cm. Base of wound is 80% necrotic ,20% mixed slough ,beefy red. Small amt serous exudate. Mild odor noted. Borders are macerated with surrounding maroon and indurated borders. MASD noted to Mons-pubis outer aspects of R and L buttocks. Perineum and bilat i schial tuberosities. Affected areas mentioned are erythematous, macerated with scattered satellite lesions. Non-Blanchable erythema without induration or fluctuance R and L Heels. Skin assessed under tracheal collar and no evidence of skin breakdown noted. Assessed pt and necrotic base of Sacral wound crosshatched by Md. Unstageable Sacral Pressure Injury (L)9.8cm x (W)7cm. 90% dry necrotic cap ,10% lj borders. Edges are adherent to base of wound. Periwound is pink and dry. No odor or exudate noted. Small external haemorrhoid with small amt bleeding noted. R and L heels are both blanchable. No new skin concerns noted. Wound Tx are effective and continued as ordered . All wound prevention protocols continued as care-planned. Pt has an APM/DANIEL Mattress overlay and is being positioned as per tolerance and within protocols. s/p excisional debridement of stage 4 decubitus ulcer periwound macerated unfortunately inevitable decline given condition wound has declined since debridement discussed with nursing staff Tx.Plan: Cleanse Sacral wound with Saline. Apply TheraHoney. Apply Moisture Barrier Paste periwound. Cover with Optifoam Drsg. Change Daily and prn. Apply Moisture Barrier Paste to Mons Pubis, Perineum and buttocks with each Incontinence care. Apply Cavilon Skin Barrier to Both heels and Malleoli. Cover each site with Optifoam Drsg. Change every 7 days and prn. Reposition at least every 2hours or as tolerated. Off-load heels with Pillow. Reposition at least every 2hours or as tolerated. APM/DANIEL mattress overlay. Adrian Gar Jun 27, 2020 21:00
[2020-06-28] VITALS (7 sets, daily range): BP systolic 116–167; BP diastolic 56–83
[2020-06-28] MEDS: NovoLOG Insulin Flexpen SUBQ SCH ×4 (00:04→18:01)
--- NOTE | 2020-06-28 02:04 | Cardiology Progress Note ---
Subjective DATE OF SERVICE: Jun 27, 2020 On T-collar - now with decreasing leukocytosis and congestion. Improved diarrhea; now on empiric oral vancomycin for possible CDiff. Continued with abnormal renal function Still with hematuria; anticoagulation on hold. BP range stabilizing Glucose trend stabilizing. Sputum culture A.baumanni Monitor: Sinus with PAFIb and short runs of aberrancy. CT scan: Pulmonary edema and pleural effusion Venous duplex of UE's negative for DVT 2D Echo (04/2020) LVEF was 35% Objective Last 24 Hour Vital Signs Date Time Temp Pulse Resp B/P (MAP) Pulse Ox O2 Delivery O2 Flow Rate FiO2 06/28/20 01:31 98 T-Piece 6.0 06/27/20 22:14 89 147/65 06/27/20 21:00 Trach Collar 5.0 06/27/20 20:00 84 06/27/20 20:00 98.8 84 18 144/60 (88) 98 06/27/20 19:50 98 T-Piece 6.0 06/27/20 18:29 143/63 06/27/20 16:00 83 06/27/20 16:00 99.0 89 18 135/57 (83) 06/27/20 14:58 91 135/57 06/27/20 13:58 164/79 06/27/20 13:43 99 T-Piece 6.0 06/27/20 12:00 97.5 83 20 158/82 (107) 06/27/20 12:00 84 06/27/20 09:17 140/84 06/27/20 09:17 140/84 06/27/20 09:00 73 06/27/20 09:00 Trach Collar 5.0 06/27/20 08:23 97.3 76 18 140/84 (102) 99 06/27/20 07:00 99 T-Piece 6.0 06/27/20 06:07 82 163/75 06/27/20 04:00 84 06/27/20 04:00 99.0 83 19 121/70 (87) 97 ROS: no change from my assessment of 05/25/20 - remains unobtainable from patient HEENT: normal ENT inspection, Thin Trach secretions RHYTHM: NSR, PACs LUNGS: diminished breath sounds - left, bilateral rhonchi CARDIAC: normal rate, regular rhythm, normal S1 and S2, arrhythmia ABDOMEN: normal bowel sounds, non tender, soft, G-Tube intact EXTREMITIES: trace edema, +2 edema - extremities, other - sacral decub. noncommunicative Laboratory Tests Test 06/27/20 05:58 06/27/20 07:15 06/27/20 09:37 06/27/20 09:40 POC Whole Blood Glucose Pending 145 MG/DL (74-106) H 152 MG/DL (74-106) H White Blood Count 14.3 K/UL (4.8-10.8) H Red Blood Count 3.33 M/UL (4.20-5.40) L Hemoglobin 8.7 G/DL (12.0-16.0) L Hematocrit 25.8 % (37.0-47.0) L Mean Corpuscular Volume 78 FL (80-99) L Mean Corpuscular Hemoglobin 26.0 PG (27.0-31.0) L Mean Corpuscular Hemoglobin Concent 33.5 G/DL (32.0-36.0) Red Cell Distribution Width 16.3 % (11.6-14.8) H Platelet Count 166 K/UL (150-450) Mean Platelet Volume 8.9 FL (6.5-10.1) Neutrophils (%) (Auto) % (45.0-75.0) Lymphocytes (%) (Auto) % (20.0-45.0) Monocytes (%) (Auto) % (1.0-10.0) Eosinophils (%) (Auto) % (0.0-3.0) Basophils (%) (Auto) % (0.0-2.0) Differential Total Cells Counted 100 Neutrophils % (Manual) 86 % (45-75) H Lymphocytes % (Manual) 6 % (20-45) L Monocytes % (Manual) 6 % (1-10) Eosinophils % (Manual) 1 % (0-3) Basophils % (Manual) 1 % (0-2) Band Neutrophils 0 % (0-8) Platelet Estimate Adequate Platelet Morphology Normal Anisocytosis 1+ Microcytosis 1+ Sodium Level 136 MMOL/L (136-145) Potassium Level 4.5 MMOL/L (3.5-5.1) Chloride Level 103 MMOL/L (98-107) Carbon Dioxide Level 25 MMOL/L (21-32) Anion Gap 8 mmol/L (5-15) Blood Urea Nitrogen 33 mg/dL (7-18) H Creatinine 0.9 MG/DL (0.55-1.30) Estimat Glomerular Filtration Rate > 60 mL/min (>60) Glucose Level 140 MG/DL (74-106) H Calcium Level 8.1 MG/DL (8.5-10.1) L Iron Level 54 ug/dL (50-175) Total Iron Binding Capacity 202 ug/dL (250-450) L Percent Iron Saturation 27 % (15-50) Unsaturated Iron Binding 148 ug/dL (112-346) Total Bilirubin 0.3 MG/DL (0.2-1.0) Aspartate Amino Transf (AST/SGOT) 9 U/L (15-37) L Alanine Aminotransferase (ALT/SGPT) 14 U/L (12-78) Alkaline Phosphatase 100 U/L (46-116) Total Protein 5.5 G/DL (6.4-8.2) L Albumin 1.9 G/DL (3.4-5.0) L Globulin 3.6 g/dL Albumin/Globulin Ratio 0.5 (1.0-2.7) L Test 06/27/20 11:57 06/27/20 20:40 06/27/20 23:54 POC Whole Blood Glucose 170 MG/DL (74-106) H 163 MG/DL (74-106) H 156 MG/DL (74-106) H Microbiology Date/Time Source Procedure Growth Status 06/26/20 15:00 Stool Clostridium difficile Toxin Assay - Final Complete Assessment/Plan Assessment/Plan Healthcare associated PNA Hospital acquired fungal cystitis with resolving hematuria Left pleural effusion Acute myocardial ischemia with possible NSTE myocardial infarction Sepsis Respiratory failure Hypertension/HHD with elev BP Parox AFib Conduction system disease with bifasc block Ac/chr systolic CHF Low lipid parameters NSVT IRDM with hyperglycemia still Hypomagnesemia Contaminant in positive blood cultures Osteomyelitis Acute renal faillure improved with hydration Hyperkalemia resolved Worsening edema due to low colloid osmotic pressures Resp Rx Antibiotics per ID alarm security or surveillance monitor Continue off IVF, trend BNP, additional diuresis, and advance ACEi rx. Anticoagulation resumed; observe for worsening bleeding. Titrate CV regimen based on clinical parameters - continue current antianginal regimen, including beta pietro. No need for statin Titrate insulin rx - advancing levemir as needed Wound care Monitor hemoglobin. DC plan on oral abx tomorrow - discussed with John Jhaveri MD Jun 28, 2020 02:04
[2020-06-28 05:54] LABS: HEMOGLOBIN 8.6 G/DL (12.0-16.0); MEAN CORPUSCULAR VOLUME 78 FL (80-99); PLATELET COUNT 166 K/UL (150-450); RED BLOOD COUNT 3.34 M/UL (4.20-5.40); RED CELL DISTRIBUTION WIDTH 16.7 % (11.6-14.8); WHITE BLOOD COUNT 15.2 K/UL (4.8-10.8)
--- NOTE | 2020-06-28 06:36 | Hematology/Onc Progress Note ---
Assessment/Plan Assessment/Plan Assessment and Recs # Leukocytosis, peripherally -- may be multiple causes, metamyelocytes and myelocytes noted on automatic cbc analyzer --> FIRSt, begin with peripheral smear--< negative for abnormal cells, immature ones --> after send for flow coytometry, r/o leukemia v other processes --> inflammatory markers elevated, may be a cause --> wbc 26-->21->14-->15 # Anemia of chronic disease due to underlying chronic medical issues, multifactorial v Gi bleed --> Anemia workup has been ordered, rule out gi bleed --> No evidence of hemolysis is noted, peripheral smear has been reviewed. --> Hgb goal >7. Transfuse prn. --> Epogen or iron at this time is not particularly indicated --> Medications have been reviewed --> low threshold for gi evaluation in case has occult + --> hgb 9-->9.1-->8.1-->8.6 # Sepsis with pna --> ABX fluc, linezolid, cefepime # PNA --> imaging per id, pulm # Elevated troponin --> cards aware # Dvt ppx --> apixaban Appreciate consultation and continue to follow Subjective Constitutional: Denies: no symptoms, chills, fever, malaise, weakness, other HEENT: Denies: no symptoms, eye pain, blurred vision, tearing, double vision, ear pain, ear discharge, nose pain, nose congestion, throat pain, throat swelling, mouth pain, mouth swelling, other Respiratory: Denies: no symptoms, cough, shortness of breath, SOB with excertion, SOB at rest, sputum, wheezing, other Genitourinary: Denies: no symptoms, burning, discharge, frequency, flank pain, hematuria, incontinence, pain, urgency, other Neurologic/Psychiatric: Denies: no symptoms, anxiety, depressed, emotional problems, headache, numbness, paresthesia, pre-existing deficit, seizure, tingling, tremors, weakness, other Endocrine: Denies: no symptoms, excessive sweating, flushing, intolerance to cold, intolerance to heat, increased hunger, increased thirst, increased urine, unexplained weight gain, unexplained weight loss, other Allergies: Coded Allergies: No Known Allergies (Unverified , 05/15/20) Subjective 06/24 labs are noted, wbc has improved, no bleeding, meds noted, nv 06/25 some diarrhea overnight, no bleeding, comfortable otherwise, labs noted 06/26 labs noted, meds reviewed, no bleeding seen 06/28 meds noted, labs reviewed, have ordered for cbc, no hemoptysis, on apixaban Objective Objective Current Medications Medications (Trade) Dose Ordered Sig/Cayden Route PRN Reason Start Time Stop Time Status Last Admin Dose Admin Apixaban (Eliquis) 5 mg BID GT 06/20/20 09:00 09/18/20 08:59 06/27/20 18:29 Chlorhexidine Gluconate (Ayaka-Hex 2%) 1 applic DAILY@1999 TOPIC 06/23/20 20:00 09/21/20 19:59 06/27/20 20:26 Clonidine HCl (Catapres Tab) 0.1 mg Q4H PRN GT for sbp>150 06/20/20 08:15 09/01/20 08:59 06/25/20 17:31 Dextrose (Dextrose 50%) 25 ml Q30M PRN IV Hypoglycemia 05/26/20 07:30 08/24/20 07:29 Dextrose (Dextrose 50%) 50 ml Q30M PRN IV Hypoglycemia 05/26/20 07:30 08/24/20 07:29 06/26/20 06:51 Insulin Aspart (NovoLOG) Q6HR SUBQ 05/26/20 12:00 08/24/20 11:59 06/28/20 00:04 Insulin Detemir (Levemir) 6 units EVERY 12 HOURS SUBQ 06/27/20 21:00 09/14/20 08:59 06/27/20 20:43 Isosorbide Dinitrate (Isordil) 20 mg THREE TIMES A DAY GT 06/02/20 13:00 07/02/20 12:59 06/27/20 18:29 Lansoprazole (Prevacid) 30 mg DAILY GT 06/24/20 09:00 07/24/20 08:59 06/27/20 09:17 Linezolid (Zyvox) 600 mg EVERY 12 HOURS GT 06/19/20 21:00 07/05/20 23:59 06/27/20 20:26 Lisinopril (PriniviL) 20 mg BID GT 06/28/20 09:00 07/28/20 08:59 Metoprolol Tartrate (Lopressor) 50 mg EVERY 8 HOURS GT 05/28/20 22:00 08/26/20 21:59 06/27/20 22:14 Multivitamins (Multivitamins) 1 tab DAILY ORAL 06/26/20 15:15 07/26/20 15:14 06/27/20 09:17 Last 24 Hour Vital Signs Date Time Temp Pulse Resp B/P (MAP) Pulse Ox O2 Delivery O2 Flow Rate FiO2 06/28/20 04:00 98.9 87 18 153/56 (88) 99 06/28/20 04:00 89 06/28/20 01:31 98 T-Piece 6.0 06/28/20 00:00 75 06/28/20 00:00 98.9 75 12 116/56 (76) 100 06/27/20 22:14 89 147/65 06/27/20 21:00 Trach Collar 5.0 06/27/20 20:00 84 06/27/20 20:00 98.8 84 18 144/60 (88) 98 06/27/20 19:50 98 T-Piece 6.0 06/27/20 18:29 143/63 06/27/20 16:00 83 06/27/20 16:00 99.0 89 18 135/57 (83) 06/27/20 14:58 91 135/57 06/27/20 13:58 164/79 06/27/20 13:43 99 T-Piece 6.0 06/27/20 12:00 97.5 83 20 158/82 (107) 06/27/20 12:00 84 06/27/20 09:17 140/84 06/27/20 09:17 140/84 06/27/20 09:00 73 06/27/20 09:00 Trach Collar 5.0 06/27/20 08:23 97.3 76 18 140/84 (102) 99 06/27/20 07:00 99 T-Piece 6.0 06/27/20 06:07 82 163/75 06/27/20 04:00 84 06/27/20 04:00 99.0 83 19 121/70 (87) 97 06/27/20 01:02 99 T-Piece 6.0 06/27/20 00:00 77 06/27/20 00:00 98.4 77 19 146/69 (94) 100 06/26/20 21:06 86 115/69 06/26/20 21:00 Trach Collar 5.0 06/26/20 20:01 98 T-Piece 6.0 28 06/26/20 20:00 89 06/26/20 20:00 98.8 86 20 115/69 (84) 100 06/26/20 17:59 100/52 06/26/20 16:00 99.0 84 20 100/52 (68) 100 06/26/20 16:00 79 06/26/20 13:50 98 T-Piece 6.0 28 06/26/20 13:12 148/68 06/26/20 13:12 83 148/68 06/26/20 12:00 83 06/26/20 12:00 98.2 79 20 148/68 (94) 100 06/26/20 09:42 164/70 06/26/20 09:41 164/70 06/26/20 08:46 Trach Collar 5.0 06/26/20 08:04 99 T-Piece 6.0 28 06/26/20 08:00 70 06/26/20 08:00 98.1 68 20 164/70 (101) 100 Intake and Output 06/27/20 06/28/20 18:59 06:59 Output Total 1300 ml Balance -1300 ml Output Urine Total 1300 ml # Bowel Movements 1 Labs Test 06/25/20 10:15 06/25/20 12:17 06/25/20 17:29 06/25/20 20:30 White Blood Count 15.5 K/UL (4.8-10.8) Red Blood Count 3.88 M/UL (4.20-5.40) Hemoglobin 9.9 G/DL (12.0-16.0) Hematocrit 30.4 % (37.0-47.0) Mean Corpuscular Volume 78 FL (80-99) Mean Corpuscular Hemoglobin 25.7 PG (27.0-31.0) Mean Corpuscular Hemoglobin Concent 32.7 G/DL (32.0-36.0) Red Cell Distribution Width 16.5 % (11.6-14.8) Platelet Count 179 K/UL (150-450) Mean Platelet Volume 7.7 FL (6.5-10.1) Neutrophils (%) (Auto) % (45.0-75.0) Lymphocytes (%) (Auto) % (20.0-45.0) Monocytes (%) (Auto) % (1.0-10.0) Eosinophils (%) (Auto) % (0.0-3.0) Basophils (%) (Auto) % (0.0-2.0) Differential Total Cells Counted 100 Neutrophils % (Manual) 87 % (45-75) Lymphocytes % (Manual) 6 % (20-45) Monocytes % (Manual) 5 % (1-10) Eosinophils % (Manual) 0 % (0-3) Basophils % (Manual) 2 % (0-2) Band Neutrophils 0 % (0-8) Platelet Estimate Adequate Platelet Morphology Normal Hypochromasia 2+ Anisocytosis 1+ Microcytosis 1+ POC Whole Blood Glucose 111 MG/DL (74-106) 105 MG/DL (74-106) 112 MG/DL (74-106) Test 06/26/20 00:17 06/26/20 05:50 06/26/20 06:11 06/26/20 06:41 POC Whole Blood Glucose 93 MG/DL (74-106) 59 MG/DL (74-106) White Blood Count 13.9 K/UL (4.8-10.8) Red Blood Count 3.13 M/UL (4.20-5.40) Hemoglobin 8.1 G/DL (12.0-16.0) Hematocrit 24.2 % (37.0-47.0) Mean Corpuscular Volume 77 FL (80-99) Mean Corpuscular Hemoglobin 25.8 PG (27.0-31.0) Mean Corpuscular Hemoglobin Concent 33.4 G/DL (32.0-36.0) Red Cell Distribution Width 16.2 % (11.6-14.8) Platelet Count 158 K/UL (150-450) Mean Platelet Volume 8.4 FL (6.5-10.1) Neutrophils (%) (Auto) 84.7 % (45.0-75.0) Lymphocytes (%) (Auto) 8.1 % (20.0-45.0) Monocytes (%) (Auto) 5.9 % (1.0-10.0) Eosinophils (%) (Auto) 0.7 % (0.0-3.0) Basophils (%) (Auto) 0.6 % (0.0-2.0) Sodium Level 139 MMOL/L (136-145) Potassium Level 4.1 MMOL/L (3.5-5.1) Chloride Level 107 MMOL/L (98-107) Carbon Dioxide Level 25 MMOL/L (21-32) Anion Gap 7 mmol/L (5-15) Blood Urea Nitrogen 38 mg/dL (7-18) Creatinine 0.9 MG/DL (0.55-1.30) Estimat Glomerular Filtration Rate > 60 mL/min (>60) Glucose Level 54 MG/DL (74-106) Calcium Level 8.2 MG/DL (8.5-10.1) Magnesium Level 1.9 MG/DL (1.8-2.4) Total Bilirubin 0.3 MG/DL (0.2-1.0) Aspartate Amino Transf (AST/SGOT) 12 U/L (15-37) Alanine Aminotransferase (ALT/SGPT) 14 U/L (12-78) Alkaline Phosphatase 81 U/L (46-116) Pro-B-Type Natriuretic Peptide 19508 pg/mL (0-125) Total Protein 5.4 G/DL (6.4-8.2) Albumin 1.8 G/DL (3.4-5.0) Globulin 3.6 g/dL Albumin/Globulin Ratio 0.5 (1.0-2.7) Test 06/26/20 07:19 06/26/20 07:39 06/26/20 12:27 06/26/20 18:01 POC Whole Blood Glucose 103 MG/DL (74-106) 110 MG/DL (74-106) 88 MG/DL (74-106) 73 MG/DL (74-106) Test 06/26/20 20:49 06/27/20 00:44 06/27/20 05:58 06/27/20 07:15 POC Whole Blood Glucose 88 MG/DL (74-106) White Blood Count 14.3 K/UL (4.8-10.8) Red Blood Count 3.33 M/UL (4.20-5.40) Hemoglobin 8.7 G/DL (12.0-16.0) Hematocrit 25.8 % (37.0-47.0) Mean Corpuscular Volume 78 FL (80-99) Mean Corpuscular Hemoglobin 26.0 PG (27.0-31.0) Mean Corpuscular Hemoglobin Concent 33.5 G/DL (32.0-36.0) Red Cell Distribution Width 16.3 % (11.6-14.8) Platelet Count 166 K/UL (150-450) Mean Platelet Volume 8.9 FL (6.5-10.1) Neutrophils (%) (Auto) % (45.0-75.0) Lymphocytes (%) (Auto) % (20.0-45.0) Monocytes (%) (Auto) % (1.0-10.0) Eosinophils (%) (Auto) % (0.0-3.0) Basophils (%) (Auto) % (0.0-2.0) Differential Total Cells Counted 100 Neutrophils % (Manual) 86 % (45-75) Lymphocytes % (Manual) 6 % (20-45) Monocytes % (Manual) 6 % (1-10) Eosinophils % (Manual) 1 % (0-3) Basophils % (Manual) 1 % (0-2) Band Neutrophils 0 % (0-8) Platelet Estimate Adequate Platelet Morphology Normal Anisocytosis 1+ Microcytosis 1+ Sodium Level 136 MMOL/L (136-145) Potassium Level 4.5 MMOL/L (3.5-5.1) Chloride Level 103 MMOL/L (98-107) Carbon Dioxide Level 25 MMOL/L (21-32) Anion Gap 8 mmol/L (5-15) Blood Urea Nitrogen 33 mg/dL (7-18) Creatinine 0.9 MG/DL (0.55-1.30) Estimat Glomerular Filtration Rate > 60 mL/min (>60) Glucose Level 140 MG/DL (74-106) Calcium Level 8.1 MG/DL (8.5-10.1) Iron Level 54 ug/dL (50-175) Total Iron Binding Capacity 202 ug/dL (250-450) Percent Iron Saturation 27 % (15-50) Unsaturated Iron Binding 148 ug/dL (112-346) Total Bilirubin 0.3 MG/DL (0.2-1.0) Aspartate Amino Transf (AST/SGOT) 9 U/L (15-37) Alanine Aminotransferase (ALT/SGPT) 14 U/L (12-78) Alkaline Phosphatase 100 U/L (46-116) Total Protein 5.5 G/DL (6.4-8.2) Albumin 1.9 G/DL (3.4-5.0) Globulin 3.6 g/dL Albumin/Globulin Ratio 0.5 (1.0-2.7) Test 06/27/20 09:37 06/27/20 09:40 06/27/20 11:57 06/27/20 20:40 POC Whole Blood Glucose 145 MG/DL (74-106) 152 MG/DL (74-106) 170 MG/DL (74-106) 163 MG/DL (74-106) Test 06/27/20 23:54 06/28/20 04:20 06/28/20 05:49 POC Whole Blood Glucose 156 MG/DL (74-106) 166 MG/DL (74-106) White Blood Count 15.2 K/UL (4.8-10.8) Red Blood Count 3.34 M/UL (4.20-5.40) Hemoglobin 8.6 G/DL (12.0-16.0) Hematocrit 26.0 % (37.0-47.0) Mean Corpuscular Volume 78 FL (80-99) Mean Corpuscular Hemoglobin 25.7 PG (27.0-31.0) Mean Corpuscular Hemoglobin Concent 33.1 G/DL (32.0-36.0) Red Cell Distribution Width 16.7 % (11.6-14.8) Platelet Count 166 K/UL (150-450) Mean Platelet Volume 8.6 FL (6.5-10.1) Neutrophils (%) (Auto) % (45.0-75.0) Lymphocytes (%) (Auto) % (20.0-45.0) Monocytes (%) (Auto) % (1.0-10.0) Eosinophils (%) (Auto) % (0.0-3.0) Basophils (%) (Auto) % (0.0-2.0) Height (Feet): 5 Height (Inches): 3.00 Weight (Pounds): 157 Objective GEN: nad, nv HEENT: normal ENT inspection, Thin Trach++ RHYTHM: NSR, PACs LUNGS: diminished breath sounds - left, bilateral rhonchi CARDIAC: normal rate, regular rhythm, normal S1 and S2, arrhythmia ABDOMEN: normal bowel sounds, non tender, soft, G-Tube intact++ EXTREMITIES: trace edema, other - sacral decub. noncommunicative Edwin Mendoza MD Jun 28, 2020 06:36
[2020-06-28] MEDS: Metoprolol Tartrate 50mg tab GT SCH ×3 (06:40→21:35)
[2020-06-28 06:43] LABS: ALANINE AMINOTRANSFERASE 13 U/L (12-78); ALBUMIN/GLOBULIN RATIO 0.5 (1.0-2.7); ALKALINE PHOSPHATASE 94 U/L (46-116); ANION GAP 11 mmol/L (5-15); ASPARTATE AMINO TRANSFERASE 12 U/L (15-37); BILIRUBIN,TOTAL 0.3 MG/DL (0.2-1.0); BLOOD UREA NITROGEN 32 mg/dL (7-18); CALCIUM 8.4 MG/DL (8.5-10.1); CARBON DIOXIDE 26 MMOL/L (21-32); CHLORIDE 101 MMOL/L (98-107); CREATININE 0.9 MG/DL (0.55-1.30); POTASSIUM 4.3 MMOL/L (3.5-5.1); SODIUM 138 MMOL/L (136-145)
--- NOTE | 2020-06-28 07:40 | Pulmonology Progress Note ---
Subjective ROS Limited/Unobtainable: Yes Constitutional: Denies: fever Allergies: Coded Allergies: No Known Allergies (Unverified , 05/15/20) Subjective care noted in tele wbc same Objective Last 24 Hour Vital Signs Date Time Temp Pulse Resp B/P (MAP) Pulse Ox O2 Delivery O2 Flow Rate FiO2 06/28/20 06:40 89 153/56 06/28/20 04:00 98.9 87 18 153/56 (88) 99 06/28/20 04:00 89 06/28/20 01:31 98 T-Piece 6.0 28 06/28/20 00:00 75 06/28/20 00:00 98.9 75 12 116/56 (76) 100 06/27/20 22:14 89 147/65 06/27/20 21:00 Trach Collar 5.0 06/27/20 20:00 84 06/27/20 20:00 98.8 84 18 144/60 (88) 98 06/27/20 19:50 98 T-Piece 6.0 06/27/20 18:29 143/63 06/27/20 16:00 83 06/27/20 16:00 99.0 89 18 135/57 (83) 06/27/20 14:58 91 135/57 06/27/20 13:58 164/79 06/27/20 13:43 99 T-Piece 6.0 28 06/27/20 12:00 97.5 83 20 158/82 (107) 06/27/20 12:00 84 06/27/20 09:17 140/84 06/27/20 09:17 140/84 06/27/20 09:00 73 06/27/20 09:00 Trach Collar 5.0 06/27/20 08:23 97.3 76 18 140/84 (102) 99 Intake and Output 06/27/20 06/28/20 19:00 07:00 Output Total 1300 ml 1450 ml Balance -1300 ml -1450 ml Output Urine Total 1300 ml 1200 ml Stool Total 250 ml # Bowel Movements 1 Objective WDWN NAD trach reduced breath sounds bilaterally without rhonchi [id number] without MRG NABS nontender GT no CCE withdrawn Microbiology Date/Time Source Procedure Growth Status 06/26/20 15:00 Stool Clostridium difficile Toxin Assay - Final Complete Laboratory Tests 06/27/20 09:37: POC Whole Blood Glucose 145H 06/27/20 09:40: POC Whole Blood Glucose 152H 06/27/20 11:57: POC Whole Blood Glucose 170H 06/27/20 20:40: POC Whole Blood Glucose 163H 06/27/20 23:54: POC Whole Blood Glucose 156H 06/28/20 04:20: White Blood Count 15.2H, Red Blood Count 3.34L, Hemoglobin 8.6L, Hematocrit 26.0L, Mean Corpuscular Volume 78L, Mean Corpuscular Hemoglobin 25.7L, Mean Corpuscular Hemoglobin Concent 33.1, Red Cell Distribution Width 16.7H, Platelet Count 166, Mean Platelet Volume 8.6, Neutrophils (%) (Auto) , Lymphocytes (%) (Auto) , Monocytes (%) (Auto) , Eosinophils (%) (Auto) , Basophils (%) (Auto) , Sodium Level 138, Potassium Level 4.3, Chloride Level 101, Carbon Dioxide Level 26, Anion Gap 11, Blood Urea Nitrogen 32H, Creatinine 0.9, Estimat Glomerular Filtration Rate > 60, Glucose Level 168H, Calcium Level 8.4L, Magnesium Level 1.4L, Total Bilirubin 0.3, Aspartate Amino Transf (AST/SGOT) 12L, Alanine Aminotransferase (ALT/SGPT) 13, Alkaline Phosphatase 94, Pro-B-Type Natriuretic Peptide 11290Y, Total Protein 5.7L, Albumin 2.0L, Globulin 3.7, Albumin/Globulin Ratio 0.5L 06/28/20 05:49: POC Whole Blood Glucose 166H Current Medications Medications (Trade) Dose Ordered Sig/Cayden Route PRN Reason Start Time Stop Time Status Last Admin Dose Admin Apixaban (Eliquis) 5 mg BID GT 06/20/20 09:00 09/18/20 08:59 06/27/20 18:29 Chlorhexidine Gluconate (Ayaka-Hex 2%) 1 applic DAILY@1999 TOPIC 06/23/20 20:00 09/21/20 19:59 06/27/20 20:26 Clonidine HCl (Catapres Tab) 0.1 mg Q4H PRN GT for sbp>150 06/20/20 08:15 09/01/20 08:59 06/25/20 17:31 Dextrose (Dextrose 50%) 25 ml Q30M PRN IV Hypoglycemia 05/26/20 07:30 08/24/20 07:29 Dextrose (Dextrose 50%) 50 ml Q30M PRN IV Hypoglycemia 05/26/20 07:30 08/24/20 07:29 06/26/20 06:51 Insulin Aspart (NovoLOG) Q6HR SUBQ 05/26/20 12:00 08/24/20 11:59 06/28/20 06:41 Insulin Detemir (Levemir) 6 units EVERY 12 HOURS SUBQ 06/27/20 21:00 09/14/20 08:59 06/27/20 20:43 Isosorbide Dinitrate (Isordil) 20 mg THREE TIMES A DAY GT 06/02/20 13:00 07/02/20 12:59 06/27/20 18:29 Lansoprazole (Prevacid) 30 mg DAILY GT 06/24/20 09:00 07/24/20 08:59 06/27/20 09:17 Linezolid (Zyvox) 600 mg EVERY 12 HOURS GT 06/19/20 21:00 07/05/20 23:59 06/27/20 20:26 Lisinopril (PriniviL) 20 mg BID GT 06/28/20 09:00 07/28/20 08:59 Metoprolol Tartrate (Lopressor) 50 mg EVERY 8 HOURS GT 05/28/20 22:00 08/26/20 21:59 06/28/20 06:40 Multivitamins (Multivitamins) 1 tab DAILY ORAL 06/26/20 15:15 07/26/20 15:14 06/27/20 09:17 Assessment/Plan Assessment/Plan IMPRESSION leukocytosis, worse Afib, chronic encephalopathy trach respiratory failure elevated troponin anemia bacteremia- staph fevers better hypertension osteo hematuria diabetes UTI with candiida PLAN wbc follow up heme eval noted respiratory care; monitor in tele snf meds suction monitor cultures eliquis ID follow noted and proceed with dc planning impression, plan, and exam edited and reviewed in detail care discussed with Fernie Ledezma MD Jun 28, 2020 07:40
[2020-06-28] MEDS: Levemir Flexpen SUBQ SCH ×2 (10:15→20:32)
[2020-06-28] MEDS: Eliquis 5mg tablet GT SCH ×2 (10:15→17:38)
[2020-06-28] MEDS: Lisinopril 20mg tab GT SCH ×2 (10:17→17:39)
--- NOTE | 2020-06-28 11:07 | Infectious Diseases Prog Note ---
Assessment/Plan Assessment/Plan antibiotics : linezolid A 1. acenitobacter pneumonia s/p rx 2. + blood cultures with coag neg staph likely contaminated 3. leucocytosis 4. diabetes mellitus 5. hypertension 6. CVA 7. dementia 8. coccygeal osteomyelitis s/p debridement 9. renal failure 10. fungal UTI s/p rx P 1. continue linezolid 7 more days 2. will follow up cultures Subjective ROS Limited/Unobtainable: Yes Allergies: Coded Allergies: No Known Allergies (Unverified , 05/15/20) Objective Last 24 Hour Vital Signs Date Time Temp Pulse Resp B/P (MAP) Pulse Ox O2 Delivery O2 Flow Rate FiO2 06/28/20 09:00 97.7 73 20 167/83 (111) 96 06/28/20 06:40 89 153/56 06/28/20 04:00 98.9 87 18 153/56 (88) 99 06/28/20 04:00 89 06/28/20 01:31 98 T-Piece 6.0 28 06/28/20 00:00 75 06/28/20 00:00 98.9 75 12 116/56 (76) 100 06/27/20 22:14 89 147/65 06/27/20 21:00 Trach Collar 5.0 06/27/20 20:00 84 06/27/20 20:00 98.8 84 18 144/60 (88) 98 06/27/20 19:50 98 T-Piece 6.0 28 06/27/20 18:29 143/63 06/27/20 16:00 83 06/27/20 16:00 99.0 89 18 135/57 (83) 06/27/20 14:58 91 135/57 06/27/20 13:58 164/79 06/27/20 13:43 99 T-Piece 6.0 28 06/27/20 12:00 97.5 83 20 158/82 (107) 06/27/20 12:00 84 Height (Feet): 5 Height (Inches): 3.00 Weight (Pounds): 157 HEENT: status post trach Respiratory/Chest: lungs clear Cardiovascular: normal rate, regular rhythm, no gallop/murmur Abdomen: soft, non tender, other - GT Extremities: no edema Microbiology Date/Time Source Procedure Growth Status 06/26/20 15:00 Stool Clostridium difficile Toxin Assay - Final Complete Laboratory Tests Test 06/27/20 11:57 06/27/20 20:40 06/27/20 23:54 06/28/20 04:20 POC Whole Blood Glucose 170 MG/DL (74-106) H 163 MG/DL (74-106) H 156 MG/DL (74-106) H White Blood Count 15.2 K/UL (4.8-10.8) H Red Blood Count 3.34 M/UL (4.20-5.40) L Hemoglobin 8.6 G/DL (12.0-16.0) L Hematocrit 26.0 % (37.0-47.0) L Mean Corpuscular Volume 78 FL (80-99) L Mean Corpuscular Hemoglobin 25.7 PG (27.0-31.0) L Mean Corpuscular Hemoglobin Concent 33.1 G/DL (32.0-36.0) Red Cell Distribution Width 16.7 % (11.6-14.8) H Platelet Count 166 K/UL (150-450) Mean Platelet Volume 8.6 FL (6.5-10.1) Neutrophils (%) (Auto) % (45.0-75.0) Lymphocytes (%) (Auto) % (20.0-45.0) Monocytes (%) (Auto) % (1.0-10.0) Eosinophils (%) (Auto) % (0.0-3.0) Basophils (%) (Auto) % (0.0-2.0) Sodium Level 138 MMOL/L (136-145) Potassium Level 4.3 MMOL/L (3.5-5.1) Chloride Level 101 MMOL/L (98-107) Carbon Dioxide Level 26 MMOL/L (21-32) Anion Gap 11 mmol/L (5-15) Blood Urea Nitrogen 32 mg/dL (7-18) H Creatinine 0.9 MG/DL (0.55-1.30) Estimat Glomerular Filtration Rate > 60 mL/min (>60) Glucose Level 168 MG/DL (74-106) H Calcium Level 8.4 MG/DL (8.5-10.1) L Magnesium Level 1.4 MG/DL (1.8-2.4) L Total Bilirubin 0.3 MG/DL (0.2-1.0) Aspartate Amino Transf (AST/SGOT) 12 U/L (15-37) L Alanine Aminotransferase (ALT/SGPT) 13 U/L (12-78) Alkaline Phosphatase 94 U/L (46-116) Pro-B-Type Natriuretic Peptide 19756 pg/mL (0-125) H Total Protein 5.7 G/DL (6.4-8.2) L Albumin 2.0 G/DL (3.4-5.0) L Globulin 3.7 g/dL Albumin/Globulin Ratio 0.5 (1.0-2.7) L Test 06/28/20 05:49 POC Whole Blood Glucose 166 MG/DL (74-106) H Current Medications Medications (Trade) Dose Ordered Sig/Cayden Route PRN Reason Start Time Stop Time Status Last Admin Dose Admin Apixaban (Eliquis) 5 mg BID GT 06/20/20 09:00 09/18/20 08:59 06/27/20 18:29 Chlorhexidine Gluconate (Ayaka-Hex 2%) 1 applic DAILY@1999 TOPIC 06/23/20 20:00 09/21/20 19:59 06/27/20 20:26 Clonidine HCl (Catapres Tab) 0.1 mg Q4H PRN GT for sbp>150 06/20/20 08:15 09/01/20 08:59 06/25/20 17:31 Dextrose (Dextrose 50%) 25 ml Q30M PRN IV Hypoglycemia 05/26/20 07:30 08/24/20 07:29 Dextrose (Dextrose 50%) 50 ml Q30M PRN IV Hypoglycemia 05/26/20 07:30 08/24/20 07:29 06/26/20 06:51 Insulin Aspart (NovoLOG) Q6HR SUBQ 05/26/20 12:00 08/24/20 11:59 06/28/20 06:41 Insulin Detemir (Levemir) 6 units EVERY 12 HOURS SUBQ 06/27/20 21:00 09/14/20 08:59 06/27/20 20:43 Isosorbide Dinitrate (Isordil) 20 mg THREE TIMES A DAY GT 06/02/20 13:00 07/02/20 12:59 06/27/20 18:29 Lansoprazole (Prevacid) 30 mg DAILY GT 06/24/20 09:00 07/24/20 08:59 06/27/20 09:17 Linezolid (Zyvox) 600 mg EVERY 12 HOURS GT 06/19/20 21:00 07/05/20 23:59 06/27/20 20:26 Lisinopril (PriniviL) 20 mg BID GT 06/28/20 09:00 07/28/20 08:59 Metoprolol Tartrate (Lopressor) 50 mg EVERY 8 HOURS GT 05/28/20 22:00 08/26/20 21:59 06/28/20 06:40 Multivitamins (Multivitamins) 1 tab DAILY ORAL 06/26/20 15:15 07/26/20 15:14 06/27/20 09:17 Mina Salamanca MD Jun 28, 2020 11:07
--- NOTE | 2020-06-28 12:38 | Surgery Progress Note ---
Surgery Progress Note Subjective Procedure Performed Excisional debridement of sacral decubitus ulcer 10 cm x 10 cm x 4 cm deep down to bone Additional Comments no acute events labs noted ill appearing leukocytosis anemia Objective Last 24 Hour Vital Signs Date Time Temp Pulse Resp B/P (MAP) Pulse Ox O2 Delivery O2 Flow Rate FiO2 06/28/20 09:00 97.7 73 20 167/83 (111) 96 06/28/20 06:40 89 153/56 06/28/20 04:00 98.9 87 18 153/56 (88) 99 06/28/20 04:00 89 06/28/20 01:31 98 T-Piece 6.0 28 06/28/20 00:00 75 06/28/20 00:00 98.9 75 12 116/56 (76) 100 06/27/20 22:14 89 147/65 06/27/20 21:00 Trach Collar 5.0 06/27/20 20:00 84 06/27/20 20:00 98.8 84 18 144/60 (88) 98 06/27/20 19:50 98 T-Piece 6.0 28 06/27/20 18:29 143/63 06/27/20 16:00 83 06/27/20 16:00 99.0 89 18 135/57 (83) 06/27/20 14:58 91 135/57 06/27/20 13:58 164/79 06/27/20 13:43 99 T-Piece 6.0 28 I&O Intake and Output 06/27/20 06/28/20 18:59 06:59 Output Total 1300 ml 1450 ml Balance -1300 ml -1450 ml Output Urine Total 1300 ml 1200 ml Stool Total 250 ml # Bowel Movements 1 Dressing: other Wound: other Cardiovascular: RSR Respiratory: decreased breath sounds Abdomen: soft, non-tender, present bowel sounds Extremities: no cyanosis Laboratory Tests Test 06/27/20 20:40 06/27/20 23:54 06/28/20 04:20 06/28/20 05:49 POC Whole Blood Glucose 163 MG/DL (74-106) H 156 MG/DL (74-106) H 166 MG/DL (74-106) H White Blood Count 15.2 K/UL (4.8-10.8) H Red Blood Count 3.34 M/UL (4.20-5.40) L Hemoglobin 8.6 G/DL (12.0-16.0) L Hematocrit 26.0 % (37.0-47.0) L Mean Corpuscular Volume 78 FL (80-99) L Mean Corpuscular Hemoglobin 25.7 PG (27.0-31.0) L Mean Corpuscular Hemoglobin Concent 33.1 G/DL (32.0-36.0) Red Cell Distribution Width 16.7 % (11.6-14.8) H Platelet Count 166 K/UL (150-450) Mean Platelet Volume 8.6 FL (6.5-10.1) Neutrophils (%) (Auto) % (45.0-75.0) Lymphocytes (%) (Auto) % (20.0-45.0) Monocytes (%) (Auto) % (1.0-10.0) Eosinophils (%) (Auto) % (0.0-3.0) Basophils (%) (Auto) % (0.0-2.0) Sodium Level 138 MMOL/L (136-145) Potassium Level 4.3 MMOL/L (3.5-5.1) Chloride Level 101 MMOL/L (98-107) Carbon Dioxide Level 26 MMOL/L (21-32) Anion Gap 11 mmol/L (5-15) Blood Urea Nitrogen 32 mg/dL (7-18) H Creatinine 0.9 MG/DL (0.55-1.30) Estimat Glomerular Filtration Rate > 60 mL/min (>60) Glucose Level 168 MG/DL (74-106) H Calcium Level 8.4 MG/DL (8.5-10.1) L Magnesium Level 1.4 MG/DL (1.8-2.4) L Total Bilirubin 0.3 MG/DL (0.2-1.0) Aspartate Amino Transf (AST/SGOT) 12 U/L (15-37) L Alanine Aminotransferase (ALT/SGPT) 13 U/L (12-78) Alkaline Phosphatase 94 U/L (46-116) Pro-B-Type Natriuretic Peptide 53877 pg/mL (0-125) H Total Protein 5.7 G/DL (6.4-8.2) L Albumin 2.0 G/DL (3.4-5.0) L Globulin 3.7 g/dL Albumin/Globulin Ratio 0.5 (1.0-2.7) L Assessment Post-op Diagnosis Stage IV sacral decubitus ulcer Plan Problems: (1) Anemia (2) Sepsis Assessment & Plan: 74-year-old female with medical comorbidities present with leukocytosis anemia abnormal labs hypoalbuminemia failure to thrive malnutrition worsening decubitus ulcer admitted further care and management was prior on vancomycin now on IV antibiotics admitted and under monitoring. Full evaluation does not at the bedside and evaluation performed. Trach stable PEG tube stable skin deteriorating per her turgor worsening decubitus ulcer malnutrition continue tube feeds as tolerated continue antibiotics wounds unlikely etiology of patient's sepsis we will monitor and follow with recommendations trend labs thank you for letting participate patient's care improving 06/13 acute severe leukocytosis abx changed wound improved since debridement will monitor cont abx cont dressings trend labs wbc remains elevated unlikely related to wound heme input noted cont current care plan DAILY ESTIMATED NEEDS: Needs based on Wound, DM/ 57kg abw 25-30 kcals/kg [id number] total kcals 1.25-1.8 g protein/kg 71-103 g total protein 20-25 mL/kg 6171-4984 total fluid mLs NUTRITION DIAGNOSIS: * Increased kcal/prot needs R/T wound healing as evidenced by pt admiteed w/ unstageable sacral wound, refer to full wound care eval. * Swallowing difficulty R/T dysphagia, respiratory status as evidenced by pt on T-collar, PEG dep. CURRENT TF:Glucerna 1.2 @ 50ml/hr x 24 hrs ENTERAL NUTRITION RECOMMENDATIONS: Glucerna 1.2 @ 50ml/hr x 24 hrs to provide 1200ml, 1440kcal, 72g, 966ml free water * Maintain current TF * HOB over 30 degrees/ water flush per MD ADDITIONAL RECOMMENDATIONS: * Calibrated bedscale wt -w/ added p200 mattress + pump * Wound healing: TF @ goal will provide 100% RDI Continue Vit C 250mg QD + add Endy BID via PEG * Monitor lytes closely w/ Lasix, replete as needed * Monitor BGs, rec increasing Levemir (POC glu 373 310) . (3) Elevated troponin (4) Pneumonia (5) Encounter for generalized patient complaints (6) Decubitus skin ulcer Assessment & Plan: Patient presented on admission with an Unstageable Sacral Pressure injury(L)9.8cm x (W)6.7cm. Base of wound is 80% necrotic ,20% mixed slough ,beefy red. Small amt serous exudate. Mild odor noted. Borders are macerated with surrounding maroon and indurated borders. MASD noted to Mons-pubis outer aspects of R and L buttocks. Perineum and bilat ischial tuberosities. Affected areas mentioned are erythematous, macerated with scattered satellite lesions. Non-Blanchable erythema without induration or fluctuance R and L Heels. Skin assessed under tracheal collar and no evidence of skin breakdown noted. Assessed pt and necrotic base of Sacral wound crosshatched by Md. Unstageable Sacral Pressure Injury (L)9.8cm x (W)7cm. 90% dry necrotic cap ,10% lj borders. Edges are adherent to base of wound. Periwound is pink and dry. No odor or exudate noted. Small external haemorrhoid with small amt bleeding noted. R and L heels are both blanchable. No new skin concerns noted. Wound Tx are effective and continued as ordered . All wound prevention protocols continued as care-planned. Pt has an APM/DANIEL Mattress overlay and is being positioned as per tolerance and within protocols. s/p excisional debridement of stage 4 decubitus ulcer periwound macerated unfortunately inevitable decline given condition wound has declined since debridement discussed with nursing staff Tx.Plan: Cleanse Sacral wound with Saline. Apply TheraHoney. Apply Moisture Barrier Paste periwound. Cover with Optifoam Drsg. Change Daily and prn. Apply Moisture Barrier Paste to Mons Pubis, Perineum and buttocks with each Incontinence care. Apply Cavilon Skin Barrier to Both heels and Malleoli. Cover each site with Optifoam Drsg. Change every 7 days and prn. Reposition at least every 2hours or as tolerated. Off-load heels with Pillow. Reposition at least every 2hours or as tolerated. APM/DANIEL mattress overlay. Adrian Gar Jun 28, 2020 12:38
--- NOTE | 2020-06-28 13:57 | Diagnostic Imaging Report ---
Indication: Reason For Exam: INFECT Technique: Single AP view of the chest. Comparison: Chest radiograph dated 06/15/2020 Findings: The cardiomediastinal silhouette is unchanged in appearance. Slight interval increase in left pleural effusion with associated left basilar consolidation. No pneumothorax. No new right-sided airspace consolidation. Mild pulmonary vascular congestion. Unchanged cannulated tracheostomy. Interval placement of left PICC, with tip in the expected location of the right atrium. IMPRESSION: 1. Slight interval increase in left pleural effusion with associated airspace consolidation. 2. Interval placement of left PICC, with tip in expected location of the right atrium.
[2020-06-28] MEDS: Dyna-Hex 2% Top Sol 2oz TOPIC SCH (20:28)
--- NOTE | 2020-06-28 22:02 | Cardiology Progress Note ---
Subjective DATE OF SERVICE: Jun 28, 2020 On T-collar - still with decreasing leukocytosis and congestion. Improved diarrhea; now on empiric oral vancomycin for possible CDiff. Continued with abnormal renal function Still with hematuria; anticoagulation on hold. BP range stabilizing Glucose trend stabilizing. Sputum culture A.baumanni Monitor: Sinus with PAFIb and short runs of aberrancy. CT scan: Pulmonary edema and pleural effusion Venous duplex of UE's negative for DVT 2D Echo (04/2020) LVEF was 35% Objective Last 24 Hour Vital Signs Date Time Temp Pulse Resp B/P (MAP) Pulse Ox O2 Delivery O2 Flow Rate FiO2 06/28/20 21:35 85 153/69 06/28/20 19:28 98 T-Piece 6.0 28 06/28/20 17:39 148/69 06/28/20 17:38 148/69 06/28/20 16:00 97.9 79 20 148/69 (95) 97 06/28/20 16:00 83 06/28/20 14:02 162/79 06/28/20 14:02 85 162/79 06/28/20 13:57 97.7 85 18 162/79 (106) 98 06/28/20 12:00 97.7 85 18 162/79 (106) 98 06/28/20 12:00 84 06/28/20 10:17 167/83 06/28/20 10:15 167/83 06/28/20 09:00 Trach Collar 5.0 06/28/20 09:00 97.7 73 20 167/83 (111) 96 06/28/20 08:00 75 06/28/20 06:40 89 153/56 06/28/20 04:00 98.9 87 18 153/56 (88) 99 06/28/20 04:00 89 06/28/20 01:31 98 T-Piece 6.0 28 06/28/20 00:00 75 06/28/20 00:00 98.9 75 12 116/56 (76) 100 06/27/20 22:14 89 147/65 ROS: no change from my assessment of 05/25/20 - remains unobtainable from patient HEENT: normal ENT inspection, Thin Trach secretions RHYTHM: NSR, PACs LUNGS: diminished breath sounds - left, bilateral rhonchi CARDIAC: normal rate, regular rhythm, normal S1 and S2, arrhythmia ABDOMEN: normal bowel sounds, non tender, soft, G-Tube intact EXTREMITIES: trace edema, +2 edema - extremities, other - sacral decub. noncommunicative Laboratory Tests Test 06/27/20 23:54 06/28/20 04:20 06/28/20 05:49 06/28/20 11:06 POC Whole Blood Glucose 156 MG/DL (74-106) H 166 MG/DL (74-106) H 171 MG/DL (74-106) H White Blood Count 15.2 K/UL (4.8-10.8) H Red Blood Count 3.34 M/UL (4.20-5.40) L Hemoglobin 8.6 G/DL (12.0-16.0) L Hematocrit 26.0 % (37.0-47.0) L Mean Corpuscular Volume 78 FL (80-99) L Mean Corpuscular Hemoglobin 25.7 PG (27.0-31.0) L Mean Corpuscular Hemoglobin Concent 33.1 G/DL (32.0-36.0) Red Cell Distribution Width 16.7 % (11.6-14.8) H Platelet Count 166 K/UL (150-450) Mean Platelet Volume 8.6 FL (6.5-10.1) Neutrophils (%) (Auto) % (45.0-75.0) Lymphocytes (%) (Auto) % (20.0-45.0) Monocytes (%) (Auto) % (1.0-10.0) Eosinophils (%) (Auto) % (0.0-3.0) Basophils (%) (Auto) % (0.0-2.0) Sodium Level 138 MMOL/L (136-145) Potassium Level 4.3 MMOL/L (3.5-5.1) Chloride Level 101 MMOL/L (98-107) Carbon Dioxide Level 26 MMOL/L (21-32) Anion Gap 11 mmol/L (5-15) Blood Urea Nitrogen 32 mg/dL (7-18) H Creatinine 0.9 MG/DL (0.55-1.30) Estimat Glomerular Filtration Rate > 60 mL/min (>60) Glucose Level 168 MG/DL (74-106) H Calcium Level 8.4 MG/DL (8.5-10.1) L Magnesium Level 1.4 MG/DL (1.8-2.4) L Total Bilirubin 0.3 MG/DL (0.2-1.0) Aspartate Amino Transf (AST/SGOT) 12 U/L (15-37) L Alanine Aminotransferase (ALT/SGPT) 13 U/L (12-78) Alkaline Phosphatase 94 U/L (46-116) Pro-B-Type Natriuretic Peptide 15192 pg/mL (0-125) H Total Protein 5.7 G/DL (6.4-8.2) L Albumin 2.0 G/DL (3.4-5.0) L Globulin 3.7 g/dL Albumin/Globulin Ratio 0.5 (1.0-2.7) L Microbiology Date/Time Source Procedure Growth Status 06/26/20 15:00 Stool Clostridium difficile Toxin Assay - Final Complete Assessment/Plan Assessment/Plan [facility] acquired fungal cystitis with resolving hematuria Left pleural effusion Acute myocardial ischemia with possible NSTE myocardial infarction Sepsis Respiratory failure Hypertension/HHD with elev BP Parox AFib Conduction system disease with bifasc block Ac/chr systolic CHF Low lipid parameters NSVT IRDM with hyperglycemia still Hypomagnesemia Contaminant in positive blood cultures Osteomyelitis Acute renal faillure improved with hydration Hyperkalemia resolved Worsening edema due to low colloid osmotic pressures Resp Rx Antibiotics per ID security monitor Continue off IVF, titrate ACEi rx. Anticoagulation resumed; observe for worsening bleeding. Titrate CV regimen based on clinical parameters - continue current antianginal regimen, including beta pietro. No need for statin Titrate insulin rx - advancing levemir as needed Wound care Monitor hemoglobin. DC plan on oral abx and current cardiovascular meds. John Heard MD Jun 28, 2020 22:02
[2020-06-29] VITALS: BP 158/74
[2020-06-29 00:17] VITALS: BP 158/74
[2020-06-29] MEDS: NovoLOG Insulin Flexpen SUBQ SCH (00:19)
--- NOTE | 2020-06-30 02:14 | Cardiology Progress Note ---
Subjective DATE OF SERVICE: Jun 29, 2020 On T-collar - with decreased leukocytosis and congestion. Continued with abnormal renal function BP range stabilized Glucose trend improved. Sputum culture A.baumanni Monitor: Sinus with PAFIb and short runs of aberrancy. CT scan: Pulmonary edema and pleural effusion Venous duplex of UE's negative for DVT 2D Echo (04/2020) LVEF was 35% Objective ROS: no change from my assessment of 05/25/20 - remains unobtainable from patient HEENT: normal ENT inspection, Thin Trach secretions RHYTHM: NSR, PACs LUNGS: diminished breath sounds - left, bilateral rhonchi CARDIAC: normal rate, regular rhythm, normal S1 and S2, arrhythmia ABDOMEN: normal bowel sounds, non tender, soft, G-Tube intact EXTREMITIES: trace edema, +2 edema - extremities, other - sacral decub. noncommunicative Assessment/Plan Assessment/Plan [facility] acquired fungal cystitis with resolving hematuria Left pleural effusion Acute myocardial ischemia with possible NSTE myocardial infarction Sepsis Respiratory failure Hypertension/HHD with elev BP Parox AFib Conduction system disease with bifasc block Ac/chr systolic CHF Low lipid parameters NSVT IRDM with hyperglycemia still Hypomagnesemia Contaminant in positive blood cultures Osteomyelitis Acute renal faillure improved with hydration Hyperkalemia resolved Worsening edema due to low colloid osmotic pressures Resp Rx Antibiotics per ID pump stitcher Continue off IVF, titrate ACEi rx aat SNF. Anticoagulation resumed; observe for recurrent bleeding. Titrate CV regimen based on clinical parameters - continue current antianginal regimen, including beta pietro. No need for statin Titrate insulin rx - advancing levemir as needed Wound care Monitor hemoglobin. DC plan on oral abx and current cardiovascular meds. John Heard MD Jun 30, 2020 02:14
--- NOTE | 2020-06-30 10:58 | Discharge Summary ---
Discharge Summary Discharge Summary _ DATE OF ADMISSION: 05/25/2020 DATE OF DISCHARGE: 06/29/2020 DISCHARGED BY: Dr. Martinez REASON FOR ADMISSION: 74 years old female, resident of residential facility, with past medical history of CVA, dysphagia , status post gastrostomy tube placement, chronic respiratory failure with tracheostomy status, hypertension, atrial fibrillation, on chronic anticoagulation, insulin-dependent diabetes mellitus, dementia, was sent for evaluation due to worsening leukocytosis. In emergency room patient was afebrile. Laboratory work-up revealed significant leukocytosis WBC 33.9. Hemoglobin 9.4, hematocrit 31. Urinalysis revealed no evidence of urinary tract infection. Stable electrolytes and renal parameters. Troponin 0.094 , EKG revealed sinus rhythm with bifascicular block: right bundle branch block and left anterior fascicular block. Chest x-ray demonstrated left pleural effusion and right lung opacity. Rapid COVID-19 was negative. In emergency department patient pancultured ,started on IV fluids and empiric antibiotic, and admitted for further management. CONSULTANTS: installation helper ID specialist Dr. Salamanca GI specialist Dr. Cote [facility]SE: Patient admitted to monitored floor. Patient started IV fluids and empiric antibiotics initially. Troponin followed. Troponin level were decreasing . Per installation helper patient had acute myocardial ischemia, possible NSTEMI. Patient was on beta-pietro and anticoagulation. Volumes and cardiorenal parameters were closely monitored, IVF stopped. Patient started in diuresis. Full anticoagulation with Eliquis provided. Cardiovascular regimen titrated based on clinical parameters. Antianginal regimen was advanced, including beta-pietro . No need for statin given stable lipid panel . Tracheostomy care provided. Pulmonary toilet provided. Patient was follow-up with a chest x-ray. Venous duplex bilateral lower extremity revealed no evidence of acute DVT. Patient developed hematuria , and anticoagulation subsequently was placed on hold. Patient undergone transfusion of 2 units of packed red blood cells ; prior to discharge hemoglobin 8.6. After transfusion hemoglobin remained at baseline. Hematuria resolved. Home Advisor cleared to restart Eliquis with close observation for any signs of bleeding. CT scan of the chest, abdomen and pelvis revealed cardiomegaly , [id number] left pleural effusion , compressive atelectasis in the left lower lobe. Subtle mosaic pulmonary perfusion , possibly mild pulmonary edema . Tracheostomy. Rectococcygeal decubitus changes, with evidence of skin thickening and subcutaneous gas bubbles, latter most likely indicating penetrating ulcer but infection with a gas-forming organism also possible. Possible tiny 2.5 x 0.5 cm fluid collection, could indicate a small abscess. 8 mm bladder stone. Gastrostomy. Evidence of prior hysterectomy cholecystectomy. Patient presented on admission with sacral decubitus ulcer stage 4. Patient undergone excisional debridement of sacral decubitus ulcer down to bone on 06/10 . Wound care provided as per surgeon recommendation . Continue wound care at the facility. Antibiotics provided as per ID recommendation. Initial blood culture revealed coagulase negative Staph. Urine culture was negative . Sputum culture revealed Acinetobacter baumannii MDR. Repeated blood culture were negative . Initial positive blood culture were most likely contaminant. Repeated urine culture revealed Vicki, s/p treatment. Leukocytosis trended down , no fevers. Patient will need to continue antibiotics for osteomyelitis to complete the course at the facility. Patient developed acute renal failure. Diuretics and GAVIOTA inhibitor stopped. Renal parameters and electrolytes were closely monitored, electrolytes corrected as needed , and nephrotoxic's were avoided . Highest creatinine was 3.3 on 06/13. Patient received IV hydration, acute kidney injury resolved . Prior to discharge creatinine down to 0.9. Patient developed diarrhea. Patient empirically started on treatment for C. difficile colitis. Rectal tube was inserted. Stool for C. difficile came back negative. Oral Vancomycin was discontinued. Lactobacillus provided. Tube feeding continued with aspiration precautions. Diarrhea was resolving. GI prophylaxis provided. Patient clinically stabilized and was ready for transfer back to residential [facility] for continuation of care. FINAL DIAGNOSES: Sepsis Acinetobacter pneumonia, status post treatment Fungal UTI , status post treatment Sacral decubitus ulcer stage IV present on admission Sacral osteomyelitis , status post excisional debridement down to bone Elevated troponin Acute myocardial ischemia Possible NSTEMI Chronic respiratory failure with tracheostomy status Acute renal failure -resolved Hypertension/hypertensive heart disease Paroxysmal atrial fibrillation Conduction system disease with bifascicular block Hematuria probably due to a/coagulation-stopped Acute on chronic diastolic CHF Diabetes mellitus insulin-dependent NSVT Electrolyte imbalance: hypomagnesemia, hyperkalemia Anemia of chronic disease Chronic encephalopathy DISCHARGE MEDICATIONS: See Medication Reconciliation list. DISCHARGE INSTRUCTIONS: Patient was discharged to the residential facility. Follow up with medical doctor at the facility. I have been assigned to dictate discharge summary for this account. I was not involved in the patient's management. Eunice Naranjo NP Jun 30, 2020 10:58
== END 2020-06-29 00:30 | DRG 853 ==
LOC: EDBD 16:48 → EMR 17:12 → 2E 23:03 → EDBEDREQ 23:15 → 2W 06-24 02:40 → 2E 06-25 17:21
DX: A41.9 Sepsis, unspecified organism (principal); L89.154 Pressure ulcer of sacral region, stage 4; I21.4 Non-ST elevation (NSTEMI) myocardial infarction; J15.6 Pneumonia due to other Gram-negative bacteria; I50.33 Acute on chronic diastolic (congestive) heart failure; R53.2 Functional quadriplegia; I45.2 Bifascicular block; F01.51 Vascular dementia, unspecified severity, with behavioral disturbance; J98.11 Atelectasis; J96.10 Chronic respiratory failure, unspecified whether with hypoxia or hypercapnia; E46 Unspecified protein-calorie malnutrition; I47.2 Ventricular tachycardia; B37.41 Candidal cystitis and urethritis; D68.32 Hemorrhagic disorder due to extrinsic circulating anticoagulants; N17.9 Acute kidney failure, unspecified; G93.49 Other encephalopathy; M46.28 Osteomyelitis of vertebra, sacral and sacrococcygeal region; I48.0 Paroxysmal atrial fibrillation; I11.0 Hypertensive heart disease with heart failure; E83.42 Hypomagnesemia; E87.5 Hyperkalemia; R19.7 Diarrhea, unspecified; E11.69 Type 2 diabetes mellitus with other specified complication; Y95 Nosocomial condition; R31.0 Gross hematuria; T45.515A Adverse effect of anticoagulants, initial encounter; Y92.230 Patient room in hospital as the place of occurrence of the external cause; I69.920 Aphasia following unspecified cerebrovascular disease; I69.991 Dysphagia following unspecified cerebrovascular disease; R13.10 Dysphagia, unspecified; I25.10 Atherosclerotic heart disease of native coronary artery without angina pectoris; I25.2 Old myocardial infarction; D63.8 Anemia in other chronic diseases classified elsewhere; N21.0 Calculus in bladder; R32 Unspecified urinary incontinence; Z11.59 Encounter for screening for other viral diseases; Z68.28 Body mass index [BMI] 28.0-28.9, adult; Z79.01 Long term (current) use of anticoagulants; Z79.4 Long term (current) use of insulin; Z86.19 Personal history of other infectious and parasitic diseases; Z93.0 Tracheostomy status; Z93.1 Gastrostomy status; Z87.01 Personal history of pneumonia (recurrent); Z90.49 Acquired absence of other specified parts of digestive tract; Z90.710 Acquired absence of both cervix and uterus
CPT/HCPCS: 36415; 36569; 71045; 71260; 74018; 74177; 76937; 80048; 80053; 80061; 80202; 81003; 82150; 82550; 82553; 82803; 82962; 83540; 83550; 83605; 83690; 83735; 83880; 84484; 85007; 85025; 85060; 85379; 85651; 86140; 86850; 86900; 86901; 86920; 87040; 87070; 87086; 87181; 87205; 87324; 93005; 93970; 94640; 96365; 99285; J1815; J7030; J8499; S5561; U0002